=== PATIENT | male | born 1965 | race Caucasian/White ===

== ENCOUNTER → 2019-07-31 15:10 | Outpatient (CLI) | payer OTHER, SELFPAY ==
--- NOTE | ~2019-07-31 | XR_ITS ---
XR ankle RT min 3V DATE: 07/31/2019 15:36 INDICATION: Right ankle and foot pain TECHNIQUE: 4 views COMPARISON: None FINDINGS: There is osteoarthritis at the tibiotalar joint including periarticular spurring. No fractu re or dislocation of the ankle or disruption of the ankle mortise is detected. No periosteal reaction or bone destruction. Prominent plantar calcaneal enthesopathy. There is some distal Achilles tendon calcification. IMPRESSION: Tibiotalar osteoarthritis Calcaneal enthesopathy Reviewed, dictated and finalized at location B. BABY
== END ==
PROVIDERS: PCP Internal Medicine; Visit Provider Internal Medicine
DX: M19.071 Primary osteoarthritis, right ankle and foot (principal)
CPT/HCPCS: 73610

== ENCOUNTER 2019-12-26 15:29 | Outpatient (CLI) | payer OTHER, SELFPAY ==
--- NOTE | ~2019-12-26 | XR_ITS ---
EXAMINATION: [id number] INDICATION: Left-sided chest pain TECHNIQUE: A frontal view of the chest and 3 views of the left ribs were obtained. COMPARISON: 05/01/2015, 05/24/2017 FINDINGS: The lungs are free of acute opacities. There is no pleural effusion or pneumothorax. The ca rdiomediastinal silhouette is normal. There is mild cortical irregularity at the anterior aspects of the left sixth and seventh ribs which could reflect nondisplaced fractures. Moderate osteoarthritis i s noted in the acromioclavicular and glenohumeral joints. IMPRESSION: 1. Possible nondisplaced fractures of the left sixth and seventh ribs. 2. No acute cardiopulmonary abnormality. Reviewed, dictated and finalized at location A.
--- NOTE | ~2019-12-26 | XR_ITS ---
EXAMINATION: XR shoulder LT min 2V INDICATION: Left shoulder pain TECHNIQUE: Four views of the left shoulder are obtained. COMPARISON: 07/20/2018, 05/01/2015 FINDINGS: There is no shoulder fracture. Bone alignment is normal. There is moderate osteoarthritis o f the acromioclavicular and glenohumeral joints without significant change. IMPRESSION: 1. Left shoulder osteoarthritis without acute findings or significant interval change. Reviewed, dictated and finalized at location A.
== END 2019-12-26 15:30 | disposition home or self-care (01) ==
LOC: ANHIMG 15:38
PROVIDERS: PCP Internal Medicine; Visit Provider Physician Assistant
DX: R07.9 Chest pain, unspecified (principal); M25.512 Pain in left shoulder; M19.012 Primary osteoarthritis, left shoulder
CPT/HCPCS: 71101; 73030

== ENCOUNTER → 2020-04-28 07:59 | Outpatient (CLI) | payer OTHER, SELFPAY ==
--- NOTE | ~2020-04-28 | XR_ITS ---
EXAMINATION: XR hand BI arthritis min 3V EXAM DATE: 04/28/2020 08:27 INDICATION: Osteoarthritis. Osteoarthritis, bilateral hand pain. History of carpal tunnel surgery bi laterally 1994. TECHNIQUE: Right hand frontal, lateral and oblique projections obtained and reviewed. Left hand fron dominic, lateral and oblique projections obtained and reviewed. Catchers projection of both hands. There is no prior study for comparison. FINDINGS: There is large spur projecting off the right 4th distal phalangeal dorsal plate, wrapping around the middle phalangeal head and causing some chronic pressure erosion at the middle phalangeal neck. No other erosive change identified. There is mild to moderate left 3rd distal interphalangeal j oint osteoarthritis, could be posttraumatic etiology. Mild to moderate bilateral 1st interphalangeal joint osteoarthritis. Less osteoarthritis at other joints. There are no acute fractures or dislocations identified. There is no subcutaneous gas. The soft tis kelvin is unremarkable. There are no radiopaque foreign bodies. IMPRESSION: Polyarticular osteoarthritis. No acute findings. Reviewed, dictated and finalized at location B. UCTION BOW MAKER
== END ==
PROVIDERS: PCP Internal Medicine; Visit Provider Plastic Surgery
DX: M19.041 Primary osteoarthritis, right hand (principal); M19.042 Primary osteoarthritis, left hand
CPT/HCPCS: 73130

== ENCOUNTER 2020-07-04 14:21 | Emergency (ER) | payer OTHER, SELFPAY ==
--- NOTE | ~2020-07-04 | XR_ITS ---
EXAMINATION: XR chest 2V EXAM DATE: 07/04/2020 17:02 INDICATION: Shortness of breath and high blood pressure. Headache, symptoms 5 days. TECHNIQUE: Frontal and lateral projections of the chest obtained and reviewed. Comparison is made to prior examination from 01/02/2019. FINDINGS: The lungs are clear. There are no pleural effusions. The cardiomediastinal silhouette is within normal limits. There is no pneumothorax suspected. There is several small sclerotic region s uspected overlying the right scapula, new compared to previous exam IMPRESSION: Possible development of osteoblastic disease. Consider correlating with PSA, bone scan. Reviewed, dictated and finalized at location A. KLE STRAP SEWER
[2020-07-04 14:25] VITALS: BP 181/69; PULSE 79; RESP 20; TEMP 35.8; O2SAT 100
--- NOTE | 2020-07-04 16:24 | ECG_ITS ---
Measurements Intervals [place] Rate: 65 P: 43 WV: 213 QRS: -10 QRSD: 126 T: 9 QT: 403 QTc: 419 Interpretive Statements SINUS RHYTHM WITH FIRST DEGREE AV BLOCK INCOMPLETE RIGHT BUNDLE BRANCH BLOCK BASELINE WANDER- V1 ABNORMAL ECG Electronically Signed On 07-04-2020 18:50:29 BOARD FINISHER by Garrett Lee D.O.
[2020-07-04 16:43] VITALS: BP 194/88; PULSE 64; RESP 18; O2SAT 97
[2020-07-04 16:55] LABS: Basophils Absolute Auto 0.1 K/mm3 (0.0-0.1); Eosinophils Absolute Auto 0.1 K/mm3 (0-0.3); Eosinophils Percent Auto 1.8 % (0-4.4); Hematocrit 38.7 % (42.0-52.0); Hemoglobin 13.6 g/dL (14.0-18.0); Immature Granulocyte Absolute 0.01 K/mm3 (0.00-0.031); Immature Granulocyte Percent A 0.2 % (0-0.5); Lymphocytes Absolute Auto 1.47 K/mm3 (0.9-3.2); Lymphocytes Percent Auto 24.1 % (18.3-44.2); Mean Corpuscular HGB Conc 35.1 g/dl (32-36); Mean Corpuscular Hemoglobin 31.1 pg (26-34); Mean Corpuscular Volume 88.4 fl (80-100); Mean Platelet Volume 8.9 fl (7.4-10.4); Monocytes Absolute Auto 0.6 K/mm3 (0.1-0.6); Monocytes Percent Auto 9.2 % (2.6-8.5); Neutrophils Absolute Auto 3.9 K/mm3 (1.3-6.7); Neutrophils Percent Auto 63.7 % (45.5-73.1); Platelet Count Result 207 k/mm3 (150-375); Red Blood Count 4.38 M/mm3 (4.6-6.20); Red Cell Distribution Width 12.4 % (11.5-14.5); White Blood Count 6.1 K/mm3 (4.5-10.0)
[2020-07-04 17:07] LABS: Anion Gap 7 mmol/L (8-16); Blood Urea Nitrogen 15 mg/dL (9-20); Calcium 9.5 mg/dL (8.4-10.2); Carbon Dioxide 28 mmol/L (22-30); Chloride 103 mmol/L (98-107); Estimated CRCL calculation 123 ml/min; Estimated Glomerular Filt Rate > 60; Glucose 143 mg/dL (75-110); Sodium 138 mmol/L (137-145)
[2020-07-04] MEDS: hydrALAZINE HCL 20 MG/ML VIAL 10 MG IV PUSH (17:14)
[2020-07-04 17:40] LABS: INR 0.9; Prothrombin Time 12.9 Seconds (11.1-14.7)
[2020-07-04 17:41] LABS: Partial Thromboplastin Time 26.1 SECONDS (22.3-36.8)
[2020-07-04 17:52] VITALS: BP 177/81; PULSE 65; RESP 18; O2SAT 97
--- NOTE | 2020-07-04 18:02 | ED.RECABL ---
HPI - Recheck/Abnormal Lab/Rx General Chief Complaint: Recheck/Abnormal Lab/Rx Stated Complaint: high blood pressure , sob Time Seen by Provider: 07/04/20 16:24 Source: patient Mode of arrival: ambulatory Limitations: no limitations History of Present Illness HPI narrative: Patient presents to the emergency department for hypertension. Reports his blood pressure has been running in the 190s systolic. He takes valsartan 40 mg daily. Reports shortness of breath over the last week. Also reports intermittent headaches over the last 5 days. Reports a cough that is chronic for him. Denies fever or lower extremity edema. Related Data Home Medications Medication Instructions Recorded Confirmed acyclovir 200 mg capsule 200 mg PO QID 05/21/19 05/30/20 atorvastatin 20 mg tablet 20 mg PO DAILY 05/21/19 05/30/20 glimepiride 2 mg tablet 1 mg PO QAM 05/21/19 05/30/20 insulin glargine 100 unit/mL 100 unit SUB-Q DAILY 05/21/19 05/30/20 subcutaneous solution insulin lispro 100 unit/mL 1 sliding scale dose SUB-Q 05/21/19 05/30/20 subcutaneous solution USEASDIRECTD metformin 1,000 mg tablet 1,000 mg PO BID 05/21/19 05/30/20 phentermine 15 mg capsule 15 mg PO DAILY 05/22/19 05/30/20 albuterol sulfate 90 mcg/actuation 1 puff INHALATION Q4H PRN 07/24/19 05/30/20 aerosol inhaler gabapentin 300 mg capsule 300 mg PO DAILY 02/14/20 05/30/20 meloxicam 15 mg tablet 15 mg PO DAILY 02/14/20 05/30/20 Allergies Allergy/AdvReac Type Severity Reaction Status Date / Time Penicillins Allergy Mild Rash Verified 07/04/20 14:29 Review of Systems Review of Systems: Narrative: CONSTITUTIONAL: Denies fever CARDIOVASCULAR: Denies chest pain RESPIRATORY: Reports cough and dyspnea. All systems reviewed & are unremarkable except as noted in HPI and below PMFSH Past Medical History Medical History (Updated 07/04/20 @ 20:53 by Lani Higgins PA-C) Bilateral shoulder pain DJD of shoulder Left hip pain Left shoulder pain Other fatigue Right shoulder pain Trochanteric bursitis of left hip Type 2 diabetes mellitus without complications Surgical History Surgical History H/O total hip arthroplasty History of repair of right rotator cuff Family History Family History Father Family history of lung cancer Patient's father is Mother Cerebrovascular accident Patient's mother is Other Diabetes mellitus Family history of arthritis Social History Social History Smoking status: Never smoker Second hand tobacco smoke exposure: No Alcohol intake: current Gender identity (if verbalized by the patient): Male Exam Narrative: Exam Narrative: GENERAL: Well-appearing, obese, and in no acute distress. HEAD: Normocephalic, atraumatic. EYES: EOMI. ENT: Mucous membranes moist. Oropharynx without tonsillar hypertrophy exudate or other lesions. NECK: Supple. No adenopathy or masses. CHEST: Clear to auscultation. No respiratory distress. No wheezes rales or rhonchi HEART: Regular rate and rhythm. No murmur heard. Normal peripheral pulses. EXTREMITIES: Normal range of motion. No edema. SKIN: Warm, dry, no rash. NEURO: No focal deficits. Alert and oriented x3. PSYCH: Normal mood and affect Course Consultations Consultation #1: Spoke with patient's on-call primary. Patient's dose of valsartan will be increased. He is to monitor his blood pressure at home and follow-up in clinic Date: 07/04/20 Time: 20:21 Vital Signs Vital signs: Vital Signs Temperature 96.5 F L 07/04/20 14:25 Pulse Rate 79 07/04/20 14:25 Respiratory Rate 20 07/04/20 14:25 Blood Pressure 181/69 H 07/04/20 14:25 Pulse Oximetry 100 07/04/20 14:25 Temperature 96.5 F L 07/04/20 14:25 Pulse Rate 70 07/04/20 19:59 Respiratory Rate 18 07/04/20 17:52 Blood Press
[2020-07-04 19:03] LABS: NT Pro B Type Natriuretic Pept 39 PG/ML (5-100); Troponin I < 0.012 ng/mL (0.000-0.034)
[2020-07-04 19:09] VITALS: BP 180/97; PULSE 75
[2020-07-04] MEDS: LABETALOL HCL INJ 100 MG/20 ML VIAL 20 MG IV PUSH (19:21)
[2020-07-04 19:59] VITALS: BP 154/95; PULSE 70
[2020-07-04 21:08] VITALS: BP 157/83; PULSE 72; RESP 18; TEMP 36.6; O2SAT 98
== END 2020-07-04 21:10 | disposition home or self-care (01) ==
PROVIDERS: Physician Assistant; Emergency Provider Emergency Medicine; PCP Internal Medicine
DX: I10 Essential (primary) hypertension (principal); E11.9 Type 2 diabetes mellitus without complications; Z79.4 Long term (current) use of insulin; I44.0 Atrioventricular block, first degree; I45.10 Unspecified right bundle-branch block
CPT/HCPCS: 36415; 71046; 80048; 83880; 84484; 85025; 85610; 85730; 93005; 96374; 96375; 99284; J0360

== ENCOUNTER 2020-07-07 06:46 | Emergency (ER) | payer OTHER, SELFPAY ==
[2020-07-07] VITALS (37 sets, daily range): BP systolic 138–204; BP diastolic 78–128; PULSE 58–75; RESP 13–25; TEMP 36.3; O2SAT 95–100
--- NOTE | ~2020-07-07 | XR_ITS ---
EXAMINATION: XR chest 1V portable EXAM DATE: 07/07/2020 08:28 INDICATION: Chest pain. Shortness of breath. History high blood pressure and diabetes. TECHNIQUE: Portable AP frontal chest x-ray was obtained. Comparison is made to prior examination from 07/04/2020. FINDINGS: The lungs are clear. There are no pleural effusions. Cardiomediastinal silhouette is norm al. There is no pneumothorax suspected. The bones and soft tissues are unremarkable. IMPRESSION: No acute cardiopulmonary findings. Reviewed, dictated and finalized at location B. CULAR MODELER
--- NOTE | 2020-07-07 07:34 | ECG_ITS ---
Measurements Intervals [place] Rate: 64 P: 9 NC: 225 QRS: -7 QRSD: 107 T: 12 QT: 401 QTc: 415 Interpretive Statements SINUS RHYTHM WITH FIRST DEGREE AV BLOCK INCOMPLETE RIGHT BUNDLE BRANCH BLOCK BASELINE ARTIFACT- I, III, V2 ABNORMAL ECG Electronically Signed On 07-07-2020 7:59:14 PRESCHOOL AIDE by Garrett Lee D.O.
[2020-07-07] MEDS: hydroCHLOROthiazide 25 MG TABLET PO (07:44)
--- NOTE | 2020-07-07 07:58 | ED.GENADULT ---
HPI - General Adult General Chief complaint: Recheck/Abnormal Lab/Rx Stated complaint: HIGH BP Time Seen by Provider: 07/07/20 07:06 Source: patient History of Present Illness HPI narrative: Patient is a 55 y/o male complaining of hypertension. He states that he took his BP this morning at home and it was 220/107. He took Valsartan 80 mg (his usual BP medication) prior to coming to ED. The medication helped lower his BP. He also has some mild chest pressure and SOB. He had some left temporal headache last night, but his headache is mostly gone now. Of note, he was seen here 3 days ago for similar complaints. His Valsartan was increased from 40 mg daily to 80 mg daily. Related Data Home Medications Medication Instructions Recorded Confirmed acyclovir 200 mg capsule 200 mg PO QID 05/21/19 05/30/20 atorvastatin 20 mg tablet 20 mg PO DAILY 05/21/19 05/30/20 glimepiride 2 mg tablet 1 mg PO QAM 05/21/19 05/30/20 insulin glargine 100 unit/mL 100 unit SUB-Q DAILY 05/21/19 05/30/20 subcutaneous solution insulin lispro 100 unit/mL 1 sliding scale dose SUB-Q 05/21/19 05/30/20 subcutaneous solution USEASDIRECTD metformin 1,000 mg tablet 1,000 mg PO BID 05/21/19 05/30/20 phentermine 15 mg capsule 15 mg PO DAILY 05/22/19 05/30/20 albuterol sulfate 90 mcg/actuation 1 puff INHALATION Q4H PRN 07/24/19 05/30/20 aerosol inhaler gabapentin 300 mg capsule 300 mg PO DAILY 02/14/20 05/30/20 meloxicam 15 mg tablet 15 mg PO DAILY 02/14/20 05/30/20 Allergies Allergy/AdvReac Type Severity Reaction Status Date / Time Penicillins Allergy Mild Rash Verified 07/04/20 14:29 Review of Systems Constitutional: Constitutional: Denies chills, Denies fever(s), Reports headache(s) and Denies weakness Eyes: Eyes: Denies blurry vision ENT: Reports headache(s) and Denies neck pain Cardiovascular: Cardiovascular: Reports chest pain and Denies dyspnea Respiratory: Respiratory: Denies cough and Reports dyspnea Gastrointestinal: Gastrointestinal: Denies abdominal pain, Denies diarrhea, Denies nausea and Denies vomiting Genitourinary: Genitourinary: Denies hematuria and Denies dysuria Musculoskeletal: Musculoskeletal: Denies back pain and Denies neck pain Neurologic: Reports headache(s) and Denies weakness PMFSH Past Medical History Medical History Bilateral shoulder pain DJD of shoulder Left hip pain Left shoulder pain Other fatigue Right shoulder pain Trochanteric bursitis of left hip Type 2 diabetes mellitus without complications Surgical History Surgical History H/O total hip arthroplasty History of repair of right rotator cuff Family History Family History Father Family history of lung cancer Patient's father is Mother Cerebrovascular accident Patient's mother is Other Diabetes mellitus Family history of arthritis Social History Social History Smoking status: Never smoker Second hand tobacco smoke exposure: No Alcohol intake: current Gender identity (if verbalized by the patient): Male Exam Const: General: no acute distress and well developed Orientation/consciousness: oriented to person, oriented to place, oriented to time and patient oriented x3 HENMT: Head: normocephalic Ears: external ears normal General nose exam: Normal external nose present Eyes: General: appearance normal, both eyes and all related structures Conjunctivae: conjunctivae normal Neck: Neck: normal visual inspection and full ROM Chest: Chest palpation & inspection: normal inspection of the chest and no tenderness Resp: Effort & Inspection: normal respiratory effort Auscultation: clear to auscultation bilaterally Cardio: Rate: regular rate Rhythm: regular rhythm GI: GI Palp: No abdominal tenderness and Y
[2020-07-07 08:14] LABS: CRP < 0.5 mg/dL (<1.0)
[2020-07-07 08:16] LABS: Alanine Aminotransferase 24 U/L (4-50); Albumin Level 3.8 g/dL (3.5-5.1); Alkaline Phosphatase 71 U/L (38-126); Anion Gap 3 mmol/L (8-16); Aspartate Amino Transferase 21 U/L (17-59); Bilirubin,Total 0.7 mg/dL (0.2-1.3); Blood Urea Nitrogen 13 mg/dL (9-20); Carbon Dioxide 28 mmol/L (22-30); Chloride 105 mmol/L (98-107); Estimated CRCL calculation 139 ml/min; Estimated Glomerular Filt Rate > 60; Glucose 185 mg/dL (75-110); Sodium 136 mmol/L (137-145)
[2020-07-07 08:27] LABS: Erythrocyte Sedimentation Rate 18 mm/hr (0-20)
[2020-07-07 08:32] LABS: Basophils Percent Auto 0.7 % (0.2-1.2); Eosinophils Absolute Auto 0.1 K/mm3 (0-0.3); Eosinophils Percent Auto 1.3 % (0-4.4); Hematocrit 40.8 % (42.0-52.0); Hemoglobin 14.3 g/dL (14.0-18.0); Immature Granulocyte Absolute 0.01 K/mm3 (0.00-0.031); Immature Granulocyte Percent A 0.2 % (0-0.5); Lymphocytes Absolute Auto 1.17 K/mm3 (0.9-3.2); Lymphocytes Percent Auto 21.9 % (18.3-44.2); Mean Corpuscular Hemoglobin 31.5 pg (26-34); Mean Corpuscular Volume 89.9 fl (80-100); Mean Platelet Volume 9.6 fl (7.4-10.4); Monocytes Absolute Auto 0.5 K/mm3 (0.1-0.6); Neutrophils Absolute Auto 3.6 K/mm3 (1.3-6.7); Neutrophils Percent Auto 66.9 % (45.5-73.1); Platelet Count Result 213 k/mm3 (150-375); Red Blood Count 4.54 M/mm3 (4.6-6.20); Red Cell Distribution Width 12.6 % (11.5-14.5); Troponin I < 0.012 ng/mL (0.000-0.034); White Blood Count 5.4 K/mm3 (4.5-10.0)
[2020-07-07] MEDS: VALSARTAN 80 MG TABLET PO (09:22)
[2020-07-07 10:58] LABS: Troponin I < 0.012 ng/mL (0.000-0.034)
[2020-07-07] MEDS: amLODIPine BESYLATE 5 MG TABLET 10 MG PO (12:14)
== END 2020-07-07 13:49 | disposition home or self-care (01) ==
PROVIDERS: Emergency Provider Emergency Medicine; PCP Internal Medicine
DX: I10 Essential (primary) hypertension (principal); R51.9 Headache, unspecified; R07.89 Other chest pain; E11.9 Type 2 diabetes mellitus without complications; Z79.4 Long term (current) use of insulin; I44.0 Atrioventricular block, first degree; I45.10 Unspecified right bundle-branch block
CPT/HCPCS: 36415; 71045; 80053; 84484; 85025; 85652; 86140; 93005; 99284; A9270

== ENCOUNTER 2020-07-09 09:56 | Outpatient (CLI) | payer OTHER, SELFPAY ==
--- NOTE | ~2020-07-09 | NM_ITS ---
EXAMINATION: NM bone scan whole body DATE: 07/09/2020 13:40 INDICATION: Diffuse sclerosis of bones. TECHNIQUE: 21.8 mCi Tc-99m HDP was administered intravenously. Delayed whole-body scintigrams were o btained. COMPARISON: Chest CT 01/10/2019, chest 2 views 07/04/2020 FINDINGS: There is increased activity at the acromioclavicular joints correlating with osteoarthritis on radiographs. There is increased activity in the knees without radiographic comparison, likely ost eoarthritis. There are foci of joint-centered increased activity in the spine correlating with spondy losis on radiographs. There is normal activity in the kidneys. IMPRESSION: 1. No evidence of malignancy or metabolic bone disease. Reviewed, dictated and finalized at location A. EN FOODS MANAGER
== END 2020-07-09 09:57 | disposition home or self-care (01) ==
PROVIDERS: PCP Internal Medicine; Visit Provider Physician Assistant
DX: R93.89 Abnormal findings on diagnostic imaging of other specified body structures (principal)
CPT/HCPCS: 78306; A9561

== ENCOUNTER 2020-07-16 12:57 | Outpatient (CLI) | payer OTHER, SELFPAY ==
--- NOTE | 2020-07-16 15:00 | NEURO_ITS ---
Impression: # Complains of hand numbness. Patient is diabetic for over 10 years. # Bilateral Carpal Tunnel Syndrome, left more than right,superimposed on underlying sensory neuropathy.. 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 # Normal needle/EMG exam. Nerve Conduction Studies Anti Sensory Summary Table Stim Site NR Peak (ms) P-T Amp (?V) Site1 Site2 Delta-P (ms) Dist (cm) Yash (m/s) Left Median Anti Sensory (2-3nd Digit) Wrist 4.4 25.4 Wrist 2-3nd Digit 4.4 14.0 32 Wrist 4.8 38.8 Wrist 2-3nd Digit 4.4 14.0 32 Right Median Anti Sensory (2-3nd Digit) Wrist 3.8 34.6 Wrist 2-3nd Digit 3.8 14.0 37 Wrist 3.8 40.9 Wrist 2-3nd Digit 3.8 14.0 37 Left Radial Anti Sensory (Base 1st Digit) Wrist 2.0 23.5 Wrist Base 1st Digit 2.0 0.0 Right Radial Anti Sensory (Base 1st Digit) Wrist 2.6 19.7 Wrist Base 1st Digit 2.6 0.0 Left Ulnar Anti Sensory (5th Digit) Wrist 3.1 11.1 Wrist 5th Digit 3.1 14.0 45 Right Ulnar Anti Sensory (5th Digit) Wrist 2.8 22.3 Wrist 5th Digit 2.8 14.0 50 Motor Summary Table Stim Site NR Onset (ms) O-P Amp (mV) Site1 Site2 Delta-0 (ms) Dist (cm) Yash (m/s) Left Median Motor (Abd Poll Brev) Wrist 5.2 1.6 Elbow Wrist 5.0 28.0 56 Elbow 10.2 1.4 Right Median Motor (Abd Poll Brev) Wrist 3.8 2.8 Elbow Wrist 5.1 27.0 53 Elbow 8.9 1.4 Left Ulnar Motor (Abd Dig Minimi) Wrist 3.0 7.2 A Elbow Wrist 5.8 29.0 50 A Elbow 8.8 6.1 B Elbow Wrist 4.4 24.0 55 B Elbow 7.4 4.8 Right Ulnar Motor (Abd Dig Minimi) Wrist 3.0 6.8 A Elbow Wrist 5.3 31.0 58 A Elbow 8.3 6.9 F Wave Studies NR F-Lat (ms) L-R F-Lat (ms) Left Median (Mrkrs) (Abd Poll Brev) 29.24 0.82 Right Median (Mrkrs) (Abd Poll Brev) 30.06 0.82 Left Ulnar (Mrkrs) (Abd Dig Min) 30.92 0.57 Right Ulnar (Mrkrs) (Abd Dig Min) 30.36 0.57 EMG Side Muscle Nerve Root Ins Act Fibs Amp Dur Recrt Comment Right 1stDorInt Ulnar C8-T1 Nml Nml Nml Nml Nml Right Ext Indicis Radial (Post Int) C7-8 Nml Nml Nml Nml Nml Right Ext Digitorum Radial (Post Int) C7-8 Nml Nml Nml Nml Nml Right BrachioRad Radial C5-6 Nml Nml Nml Nml Nml Right PronatorTeres Median C6-7 Nml Nml Nml Nml Nml Right Abd Poll Brev Median C8-T1 Nml Nml Nml Nml Nml Left 1stDorInt Ulnar C8-T1 Nml Nml Nml Nml Nml Left Ext Indicis Radial (Post Int) C7-8 Nml Nml Nml Nml Nml Left Ext Digitorum Radial (Post Int) C7-8 Nml Nml Nml Nml Nml Left BrachioRad Radial C5-6 Nml Nml Nml Nml Nml Left PronatorTeres Median C6-7 Nml Nml Nml Nml Nml Left Abd Poll Brev Median C8-T1 Nml Nml Nml Nml Nml MTDD
== END 2020-07-16 12:58 | disposition home or self-care (01) ==
PROVIDERS: Family Provider Internal Medicine; PCP Internal Medicine; Visit Provider Plastic Surgery
DX: R20.0 Anesthesia of skin (principal); R53.1 Weakness; G56.03 Carpal tunnel syndrome, bilateral upper limbs
CPT/HCPCS: 95886; 95911

== ENCOUNTER 2020-07-29 13:28 | Outpatient (CLI) | payer OTHER, SELFPAY ==
--- NOTE | ~2020-07-29 | US_ITS ---
EXAMINATION: US renal BI EXAM DATE: 07/29/2020 14:08 INDICATION: R79.89 - Other specified abnormal findings of blood chemistry. TECHNIQUE: Multiple grayscale and Doppler images of the kidneys were obtained (by a technologist who performed the scan) and subsequently reviewed. Comparison is made to prior examination from 09/19/2018 . FINDINGS: Right kidney: There is normal contour and echogenicity. It measures 11.3 x 6.2 x 6.7 centimeters. T here are no focal renal lesions identified. There is no hydronephrosis. Left kidney: There is normal contour and echogenicity. It measures 3.2 x 6.3 x 5.6 centimeters. The re are no focal renal lesions identified. There is no hydronephrosis. Bladder unremarkable. IMPRESSION: 1. Sonographically unremarkable kidneys. Reviewed, dictated and finalized at location B. ENGER CAR CLEANING SUPERVISOR
== END 2020-07-29 13:29 | disposition home or self-care (01) ==
PROVIDERS: PCP Internal Medicine; Visit Provider Physician Assistant
DX: R79.89 Other specified abnormal findings of blood chemistry (principal)
CPT/HCPCS: 76775

== ENCOUNTER 2021-05-20 15:33 | Emergency (ER) | payer OTHER, SELFPAY ==
--- NOTE | ~2021-05-20 | CT_ITS ---
EXAMINATION: CT BRAIN W/O DATE: 05/20/2021 17:17 INDICATION: Headache. TECHNIQUE: Computed tomography (CT) of the head was performed without intravenous contrast. The dose- length product was 681.00 mGy-cm. Automated exposure control and iterative reconstruction technique w ere employed. COMPARISON: No prior studies for comparison. FINDINGS: Normal brain parenchymal volume for age. Normal rand-white differentiation. No acute intrac ranial hemorrhage, infarction, mass or mass effect. No ventriculomegaly or midline shift. Midline sagittal images demonstrate a normal corpus callosum, c raniovertebral junction and sella turcica. Basilar cisterns are patent. Paranasal sinuses and mastoids are pneumatized. No depressed skull fractures. IMPRESSION: 1. No acute intracranial abnormality. Reviewed, dictated and finalized at location A. REPORT DEVELOPER
[2021-05-20 15:51] VITALS: BP 169/79; PULSE 72; RESP 20; TEMP 36.4; O2SAT 100
[2021-05-20 17:05] VITALS: BP 164/98; PULSE 76; RESP 18; TEMP 37.3; O2SAT 97
[2021-05-20 17:12] VITALS: BP 164/98; PULSE 76; RESP 18; O2SAT 97
--- NOTE | 2021-05-20 17:19 | ED.GENADULT ---
HPI - General Adult General Chief complaint: Recheck/Abnormal Lab/Rx Stated complaint: high blood pressure Time Seen by Provider: 05/20/21 16:55 Source: RN notes reviewed History of Present Illness HPI narrative: Patient presents to emergency department from home for hypertension. Patient states that he has a history of hypertension is on valsartan daily which he takes in the morning he states that he had taken his normal medication this morning and checked his blood pressure and his blood pressure been elevated he states that with this he has a mild headache he states that secondary his blood pressure being elevated at home with readings in the 200s systolically he took a second valsartan at approximately 11:00 he denies any fevers or chills chest pain shortness of breath abdominal pain or nausea vomiting he did just recently have a left shoulder replacement approximately 1 week ago and states that he has been taking Tylenol for his pain but no other pain medication with last dose of Tylenol at noon. Related Data Home Medications Medication Instructions Recorded Confirmed atorvastatin 20 mg tablet 20 mg PO DAILY 05/21/19 07/09/20 glimepiride 2 mg tablet 1 mg PO QAM 05/21/19 07/09/20 insulin glargine 100 unit/mL 100 unit SUB-Q DAILY 05/21/19 07/09/20 subcutaneous solution insulin lispro 100 unit/mL 1 sliding scale dose SUB-Q 05/21/19 07/09/20 subcutaneous solution USEASDIRECTD metformin 1,000 mg tablet 1,000 mg PO BID 05/21/19 07/09/20 albuterol sulfate 90 mcg/actuation 1 puff INHALATION Q4H PRN 07/24/19 05/30/20 aerosol inhaler gabapentin 300 mg capsule 300 mg PO DAILY 02/14/20 05/30/20 meloxicam 15 mg tablet 15 mg PO DAILY 02/14/20 07/09/20 Allergies Allergy/AdvReac Type Severity Reaction Status Date / Time Penicillins Allergy Mild Rash Verified 07/07/20 14:12 Review of Systems Review of Systems: Gen.: Denies fevers or chills Eyes: Denies eye pain or visual change ENT: Denies congestion Respiratory: Denies shortness of breath or cough CV: Denies chest pain or palpitations GI: Denies abdominal pain nausea, emesis or diarrhea Musculoskeletal: Denies back pain or muscle pain Neuro: Denies numbness, tingling, weakness or focal weakness Skin: Denies rash Except as documented, all other systems reviewed and negative [facility] Past Medical History Medical History Bilateral shoulder pain DJD of shoulder Left hip pain Left shoulder pain Other fatigue Right shoulder pain Trochanteric bursitis of left hip Type 2 diabetes mellitus without complications Surgical History Surgical History H/O total hip arthroplasty History of repair of right rotator cuff Family History Family History Father Family history of lung cancer Patient's father is Mother Cerebrovascular accident Patient's mother is Other Diabetes mellitus Family history of arthritis Social History Social History Smoking status: Never smoker Second hand tobacco smoke exposure: No Alcohol intake: current Gender identity (if verbalized by the patient): Male Exam Narrative: APPEARANCE: No acute distress, nontoxic, resting in bed EYES: EOMI HEENT: Normocephalic, atraumatic, OMM RESPIRATORY: No respiratory distress Clear to auscultation bilaterally with no rhonchi wheezing or rales. CARDIOVASCULAR: Regular rate and rhythm without murmurs rubs or gallops. ABDOMINAL: Soft, nontender, nondistended, no rebound or guarding MUSCULOSKELETAl: Moves all extremities. No clubbing, cyanosis or edema. Left shoulder in sling NEURO: Awake and alert. Following commands, speech normal, no focal deficits SKIN:: Warm, dry. No rashes lesions or abrasions PSYCHIATRIC: Normal affect/mood, Course Course Emergency Course: Nu
[2021-05-20 17:28] LABS: Basophils Percent Auto 0.7 % (0.2-1.2); Eosinophils Absolute Auto 0.1 K/mm3 (0-0.3); Eosinophils Percent Auto 1.7 % (0-4.4); Hematocrit 33.3 % (42.0-52.0); Hemoglobin 11.5 g/dL (14.0-18.0); Immature Granulocyte Absolute 0.03 K/mm3 (0.00-0.031); Immature Granulocyte Percent A 0.5 % (0-0.5); Lymphocytes Absolute Auto 0.88 K/mm3 (0.9-3.2); Lymphocytes Percent Auto 15.2 % (18.3-44.2); Mean Corpuscular HGB Conc 34.5 g/dl (32-36); Mean Corpuscular Hemoglobin 29.7 pg (26-34); Mean Platelet Volume 8.8 fl (7.4-10.4); Monocytes Absolute Auto 0.4 K/mm3 (0.1-0.6); Monocytes Percent Auto 6.6 % (2.6-8.5); Neutrophils Absolute Auto 4.4 K/mm3 (1.3-6.7); Neutrophils Percent Auto 75.3 % (45.5-73.1); Platelet Count Result 232 k/mm3 (150-375); Red Blood Count 3.87 M/mm3 (4.6-6.20); Red Cell Distribution Width 12.4 % (11.5-14.5); White Blood Count 5.8 K/mm3 (4.5-10.0)
[2021-05-20 17:40] LABS: Alanine Aminotransferase 30 U/L (4-50); Albumin Level 3.9 g/dL (3.5-5.1); Alkaline Phosphatase 87 U/L (38-126); Anion Gap 5 mmol/L (8-16); Aspartate Amino Transferase 26 U/L (17-59); Bilirubin,Total 0.3 mg/dL (0.2-1.3); Blood Urea Nitrogen 13 mg/dL (9-20); Calcium 9.5 mg/dL (8.4-10.2); Carbon Dioxide 31 mmol/L (22-30); Chloride 97 mmol/L (98-107); Estimated CRCL calculation 125 ml/min; Estimated Glomerular Filt Rate > 60; Glucose 291 mg/dL (65-110); Potassium 4.1 mmol/L (3.4-5.0); Sodium 133 mmol/L (137-145)
[2021-05-20 17:53] VITALS: BP 167/96; PULSE 74; RESP 18; O2SAT 100
--- NOTE | 2021-05-20 17:56 | PC.NURSE ---
Pt states that the doctor didn't explain that he would be signing an AMA form if he wanted to leave today, MD Childs aware, went to further educate pt on his decision, pt still would like to be discharged but refused to sign AMA form
[2021-05-20 18:12] LABS: Add Urine Microscopic? YES; Appearance Urine Clear (Clear); Bilirubin Urine Negative (Negative); Blood Urine Negative (Negative); Color Urine Straw (Yellow); Glucose Urine UA 3+ mg/dL (Negative); Ketones Urine Negative (Negative); Leukocyte Esterase Ur Negative LEU/UL (Negative); Nitrate Urine Negative (Negative); Protein Urine Negative (Negative); RBC Urine 0-2 /hpf (0-2); Urobilinogen Urine Negative mg/dL (<2.0); WBC Urine 0-3 /hpf
[2021-05-20 18:42] VITALS: BP 168/94; PULSE 75; O2SAT 98
== END 2021-05-20 18:43 | disposition home or self-care (01) ==
PROVIDERS: Emergency Provider Emergency Medicine; PCP Internal Medicine
DX: I10 Essential (primary) hypertension (principal); E11.9 Type 2 diabetes mellitus without complications; Z79.84 Long term (current) use of oral hypoglycemic drugs; Z79.4 Long term (current) use of insulin; Z96.643 Presence of artificial hip joint, bilateral
CPT/HCPCS: 36415; 70450; 80053; 81001; 85025; 99284

== ENCOUNTER 2022-01-19 00:14 | Day surgery (SDC) | payer OTHER, SELFPAY ==
[2022-01-04 14:11] VITALS: BMI 44.2
[2022-01-19 09:42] VITALS: BP 128/79; PULSE 75; RESP 20; TEMP 36.6; O2SAT 98
[2022-01-19] MEDS: LACTATED RINGERS 1,000 ML 150 ML IV CONT (09:56)
[2022-01-19 09:57] LABS: Glucose Point of Care 149 mg/dl (65-105)
--- NOTE | 2022-01-19 10:03 | WPDANESEPPF ---
Anes - Initial Pre Proc Eval Procedure: Operation Date: 01/19/22 10:30 Proposed Procedures p Screening Colonoscopy - Helio Flynn MD Date/Time: 01/19/22 10:03 Surgeon: Helio Flynn MD Pre Op Diagnosis: neoplasm screening Patient Data Age: 56 Gender: M Height: 1.75 m Weight: 137.8 kg Last Vital Signs Temp 36.6 C 01/19/22 09:42 Pulse 75 01/19/22 09:42 Resp 20 01/19/22 09:42 BP 128/79 01/19/22 09:42 Pulse Ox 98 01/19/22 09:42 O2 Del Method Room Air 01/19/22 09:42 Allergies Allergy/AdvReac Type Severity Reaction Status Date / Time Penicillins Allergy Mild Rash Verified 01/19/22 09:41 Home Medications Medication Instructions Recorded Confirmed Type atorvastatin 20 mg tablet 20 mg PO DAILY 05/21/19 01/19/22 History insulin glargine 100 unit/mL 100 unit subcut DAILY 05/21/19 01/19/22 History subcutaneous solution (Lantus U-100 Insulin) insulin lispro 100 unit/mL 1 sliding scale dose subcut 05/21/19 01/19/22 History subcutaneous solution (Humalog USEASDIRECTD U-100 Insulin) metformin 1,000 mg tablet 1,000 mg PO BID 05/21/19 01/19/22 History gabapentin 300 mg capsule 300 mg PO PRN PRN Pain 02/14/20 01/19/22 History acyclovir 200 mg capsule 200 mg PO QID #20 caps 12/30/20 01/19/22 Rx valsartan 160 1 tablet PO DAILY #90 tabs 10/07/21 01/19/22 Rx mg-hydrochlorothiazide 25 mg tablet (Diovan HCT) amlodipine 5 mg tablet 5 mg PO DAILY #90 tabs 11/11/21 01/19/22 Rx Laboratory Tests 01/19/22 09:46 POC Capillary Glucose 149 mg/dl H mg/dl (65-105) Patient hx anesthesia problems: none Family hx anesthesia problems: none Results Review: All pre-operative results and documents have been reviewed as part of the pre-operative evaluation. [facility] Past Medical History Medical History Bilateral shoulder pain DJD of shoulder Left hip pain Left shoulder pain Other fatigue Right shoulder pain Trochanteric bursitis of left hip Type 2 diabetes mellitus without complications Surgical History Surgical History H/O total hip arthroplasty H/O total shoulder replacement History of repair of right rotator cuff Family History Family History Father Family history of lung cancer Patient's father is Mother Cerebrovascular accident Patient's mother is Other Diabetes mellitus Family history of arthritis Social History Social History Smoking status: Never smoker Second hand tobacco smoke exposure: No Alcohol intake: current Alcohol use details: on occasion Substance use: never Substance use type: does not use Living arrangements: with family Gender identity (if verbalized by the patient): Male Spiritual care concerns: No Anes - Eval Final PreProcedure Day of Procedure 01/19/22 10:03 Patient weight: morbidly obese Heart: regular rate and rhythm Lungs: clear to auscultation Airway: Mallampati scale class III Neurological: alert and oriented Last oral intake: >/= 8 hours ASA classification: III Emergent: no Anesthetic plan: proceed Anesthesia type and monitoring: general GIVS and standard monitoring Results Review: All pre-operative results and documents have been reviewed as part of the pre-operative evaluation. Informed Consent: The patient's anesthetic plan and its attendant risks and benefits were discussed with the patient/family/POA. Questions were solicited and answers provided to the satisfaction of the patient/family/POA.
--- NOTE | 2022-01-19 10:41 | WPDGICN ---
Assessment and Plan Assessment and plan (1) Encounter for screening colonoscopy: Code(s): Z12.11 - Encounter for screening for malignant neoplasm of colon Status: Acute Assessment and Plan: Patient presents today for screening colonoscopy. Appears to be at average risk for colon polyps. (2) Morbid obesity with BMI of 45.0-49.9, adult: Code(s): E66.01 - Morbid (severe) obesity due to excess calories; Z68.42 - Body mass index [BMI] 45.0-49.9, adult Status: Acute Assessment and Plan: Weight loss with calorie restriction increase activity are encouraged. GI Consult Note Consult date/time: 01/19/22 10:41 Reason for consult: Neoplasia screening. HPI: Oc Foster is a 56 year old male Presents for screening colonoscopy. Patient reports that his current weight appetite and bowel movements are normal. He denies abdominal pain. He has had no bleeding. Family history is noncontributory. Patient presents today for screening colonoscopy. Review of Systems Review of Systems: Review of systems noncontributory. [facility] Past Medical History Medical History Bilateral shoulder pain DJD of shoulder Left hip pain Left shoulder pain Other fatigue Right shoulder pain Trochanteric bursitis of left hip Type 2 diabetes mellitus without complications Surgical History Surgical History H/O total hip arthroplasty H/O total shoulder replacement History of repair of right rotator cuff Family History Family History Father Family history of lung cancer Patient's father is Mother Cerebrovascular accident Patient's mother is Other Diabetes mellitus Family history of arthritis Social History Social History Smoking status: Never smoker Second hand tobacco smoke exposure: No Alcohol intake: current Alcohol use details: on occasion Substance use: never Substance use type: does not use Living arrangements: with family Gender identity (if verbalized by the patient): Male Spiritual care concerns: No Meds Home Medications and Allergies Home Medications Medication Instructions Recorded Confirmed Type atorvastatin 20 mg tablet 20 mg PO DAILY 05/21/19 01/19/22 History insulin glargine 100 unit/mL 100 unit subcut DAILY 05/21/19 01/19/22 History subcutaneous solution (Lantus U-100 Insulin) insulin lispro 100 unit/mL 1 sliding scale dose subcut 05/21/19 01/19/22 History subcutaneous solution (Humalog USEASDIRECTD U-100 Insulin) metformin 1,000 mg tablet 1,000 mg PO BID 05/21/19 01/19/22 History gabapentin 300 mg capsule 300 mg PO PRN PRN Pain 02/14/20 01/19/22 History acyclovir 200 mg capsule 200 mg PO QID #20 caps 12/30/20 01/19/22 Rx valsartan 160 1 tablet PO DAILY #90 tabs 10/07/21 01/19/22 Rx mg-hydrochlorothiazide 25 mg tablet (Diovan HCT) amlodipine 5 mg tablet 5 mg PO DAILY #90 tabs 11/11/21 01/19/22 Rx Allergies Allergy/AdvReac Type Severity Reaction Status Date / Time Penicillins Allergy Mild Rash Verified 01/19/22 09:41 Vital Signs Vital Signs - 24 hr 01/19/22 09:42 Temperature 97.8 F Pulse Rate 75 Respiratory Rate 20 Blood Pressure 128/79 Pulse Oximetry 98 Oxygen Delivery Room Air Exam Narrative: Physical exam reveals patient to be alert. Vital signs stable. HEENT exam is unremarkable. Patient is anicteric. Lungs are clear to auscultation and percussion. Heart is without murmur or extra sounds. Abdominal exam is somewhat obese. Bowel sounds present soft nontender with no organomegaly. Digital external rectal exam is normal.
[2022-01-19 11:35] VITALS: BP 99/54; PULSE 74; RESP 22; O2SAT 100
[2022-01-19 11:45] VITALS: BP 117/54; PULSE 67; RESP 21; O2SAT 100
[2022-01-19 11:55] VITALS: BP 124/72; PULSE 64; RESP 19; O2SAT 100
== END 2022-01-19 12:07 | disposition home or self-care (01) ==
PROVIDERS: PCP Internal Medicine; Visit Provider Internal Medicine Gastroenterology
PROC: 0DJD8ZZ Inspection of Lower Intestinal Tract, Via Natural or Artificial Opening Endoscopic (ICD-10-PCS; CPT 45378; principal; 2022-01-19 10:30)
DX: Z12.11 Encounter for screening for malignant neoplasm of colon (principal); K63.5 Polyp of colon; K64.8 Other hemorrhoids; R53.83 Other fatigue; E11.9 Type 2 diabetes mellitus without complications; Z79.84 Long term (current) use of oral hypoglycemic drugs; Z79.4 Long term (current) use of insulin; E66.9 Obesity, unspecified; Z68.41 Body mass index [BMI] 40.0-44.9, adult
CPT/HCPCS: 45385; 82948; 88305; J2704; J7120

== ENCOUNTER 2022-03-11 10:14 | Outpatient (CLI) | payer OTHER, SELFPAY ==
--- NOTE | ~2022-03-11 | XR_ITS ---
EXAMINATION: XR ribs LT 2V w CXR 2V INDICATION: Pleurodynia TECHNIQUE: PA and lateral views of the chest and 3 views of the left ribs were obtained. COMPARISON: 07/07/2020 FINDINGS: The lungs are free of acute opacities. No pleural effusion or pneumothorax. Changes of left shoulder arthroplasty are noted. There is advanced osteoarthritis of the right glenohumeral joint. T here is severe thoracic spondylosis. IMPRESSION: 1. No acute cardiopulmonary abnormality or evidence of displaced rib fracture. Reviewed, dictated and finalized at location B.
== END 2022-03-11 10:15 | disposition home or self-care (01) ==
PROVIDERS: PCP Internal Medicine; Visit Provider Physician Assistant
DX: R07.81 Pleurodynia (principal); M47.814 Spondylosis without myelopathy or radiculopathy, thoracic region
CPT/HCPCS: 71046; 71100

== ENCOUNTER → 2022-08-04 09:43 | Outpatient (CLI) | payer OTHER, SELFPAY ==
--- NOTE | ~2022-08-04 | XR_ITS ---
EXAMINATION: XR lumbar spine 6V w bending DATE: 08/04/2022 10:13 INDICATION: Worsening low back pain TECHNIQUE: Anteroposterior, lateral in neutral, flexion and extension, and bilateral oblique views of the lumbar spine, and cone-down lateral view of the lumbosacral junction were obtained. COMPARISON: 08/19/2017 FINDINGS: There are 6 mm of stable anterolisthesis of L5 on S1. There are 2 mm of retrolisthesis of L 3 on L4 and L4 and L5. Chronic anterior wedging is noted at the thoracolumbar junction. There is no f racture. There is no hypermobility with flexion or extension. There is mild loss of intervertebral di sc space height throughout the lumbar spine. Small degenerative osteophytes project from the anterior endplates of multiple vertebral bodies. There is moderate facet joint osteoarthritis of the lower alfredo mbar spine. Degenerative osteophytes project from the anterior endplates of multiple vertebral bodies . IMPRESSION: 1. Moderate to severe lumbar spondylosis without acute findings or significant interval change. Reviewed, dictated and finalized at location B. ONAL INSURANCE OFFICER
== END ==
PROVIDERS: PCP Internal Medicine; Visit Provider Physician Assistant
DX: M47.816 Spondylosis without myelopathy or radiculopathy, lumbar region (principal); M54.50 Low back pain, unspecified; G89.29 Other chronic pain
CPT/HCPCS: 72114

== ENCOUNTER → 2022-08-19 14:47 | Outpatient (CLI) | payer OTHER, SELFPAY ==
--- NOTE | ~2022-08-19 | MR_ITS ---
EXAMINATION: MR lumbar spine wo con DATE: 08/19/2022 15:15 INDICATION: Low back pain. Left leg pain. TECHNIQUE: Magnetic resonance imaging (MRI) of the lumbar spine was performed without intravenous con trast. Sequences included sagittal T2-weighted FSE, sagittal T2-weighted FS FSE, sagittal T1-weighted FSE, and axial T2-weighted FSE. COMPARISON: Lumbar spine radiographs 08/04/2022 FINDINGS: There is 3 degrees levocurvature of lumbar spine. There are chronic bilateral L5 pars defec ts. There is 3 mm anterolisthesis of L5 on S1. There is mild chronic anterior wedging of T10-L2 verte bral bodies. There is severely decreased disc height at L4-L5 and mildly decreased disc height at L5- S1. The distal spinal cord signal intensity is normal. The conus medullaris is at L1-L2. The followin g disc levels are specifically discussed: L1-L2: The disc is bulging with superimposed large central extrusion. There is mild bilateral facet j oint osteoarthritis. There is moderate right and mild left neural foraminal stenosis. There is mild c entral canal stenosis. L2-L3: The disc is mildly bulging. There is mild bilateral facet joint osteoarthritis. There is mild bilateral neural foraminal stenosis. There is no central canal stenosis. L3-L4: The disc is mildly bulging. There is mild bilateral facet joint osteoarthritis. There is mild bilateral neural foraminal stenosis. There is no central canal stenosis. L4-L5: The disc is bulging and has an annular fissure. There is severe bilateral facet joint osteoart hritis. There is moderate right and mild left neural foraminal stenosis. There is mild central canal stenosis. L5-S1: The disc is bulging and has an annular fissure. There is severe bilateral facet joint osteoart hritis. There is mild right and moderate left neural foraminal stenosis. There is no central canal st enosis. IMPRESSION: 1. Severe lumbar spondylosis. 2. Chronic bilateral L5 pars defects with grade 1 anterolisthesis of L5 on S1. Reviewed, dictated and finalized at location A. CHING MACHINE OPERATOR
== END ==
PROVIDERS: PCP Internal Medicine; Visit Provider Physician Assistant
DX: G89.29 Other chronic pain (principal); M54.50 Low back pain, unspecified; M43.06 Spondylolysis, lumbar region; M53.86 Other specified dorsopathies, lumbar region; M43.17 Spondylolisthesis, lumbosacral region
CPT/HCPCS: 72148

== ENCOUNTER 2022-09-18 11:42 | Emergency (ER) | payer OTHER, SELFPAY ==
--- NOTE | 2022-09-18 11:47 | ED.EAR ---
HPI - Ear Problem General Chief complaint: Ear Stated complaint: Left Ear Irritation Time Seen by Provider: 09/18/22 11:47 Source: patient Mode of arrival: ambulatory Limitations: no limitations History of Present Illness HPI Narrative: Mr. Foster is a 57-year-old male patient presenting to clinic today with complaints of left ear discomfort and slight sore throat. He reports he normally has postnasal drip. States he is post be going scuba diving it in a couple weeks and is wanting his ear looked at/treated Related Data Home Medications Medication Instructions Recorded Confirmed atorvastatin 20 mg tablet 20 mg PO DAILY 05/21/19 09/18/22 metformin 1,000 mg tablet 1,000 mg PO BID 05/21/19 09/18/22 Allergies Allergy/AdvReac Type Severity Reaction Status Date / Time dapagliflozin [From [facility]] AdvReac Mild Rash Verified 09/18/22 11:51 Penicillins AdvReac Mild Rash Verified 09/18/22 11:51 Review of Systems Review of Systems: Pertinent positives per HPI. Patient denies any fever, chills, rash, headache, visual changes, dizziness, cough, runny nose, sore throat, shortness of breath, chest pain, palpitations, nausea, vomiting, diarrhea, constipation, abdominal pain, or any urinary issues. [facility] Past Medical History Medical History Bilateral shoulder pain DJD of shoulder Left hip pain Left shoulder pain Other fatigue Right shoulder pain Trochanteric bursitis of left hip Type 2 diabetes mellitus without complications Surgical History Surgical History H/O total hip arthroplasty H/O total shoulder replacement History of repair of right rotator cuff Family History Family History Father Family history of lung cancer Patient's father is Mother Cerebrovascular accident Patient's mother is Other Diabetes mellitus Family history of arthritis Social History Social History Smoking status: Never smoker Second hand tobacco smoke exposure: No Alcohol intake: current Alcohol use details: on occasion Substance use: never Substance use type: does not use Lack of Transportation: No Lack of Food: Never True Current Housing: I Have Housing Concerned About Future Housing: No Difficulty Paying Gas/Electric Bills: No Difficulty Paying for Meds: No Currently Unemployed: No Education: Master's Degree or Higher Difficulty w/ Childcare or Family Care: No Living arrangements: with family Gender identity (if verbalized by the patient): Male Spiritual care concerns: No Comments At the time of my signature, I reviewed and agree with the nursing past medical, surgical, social, and family history. There is no relevant family history pertinent to the patient complaint. Exam Narrative: General: Well-developed, well nourished, in no apparent distress Head: Normocephalic, atraumatic Eyes: Pupils equally round and reactive to light bilaterally, EOM intact, sclera and conjunctive clear, no discharge, lids normal Ears: Right tMs intact and clear, left TM intact, mild bulging, cerumen up against the TM ear irrigation was performed and wax was removed, ear canals clear, no drainage, grossly hearing normal. Nose: Nares patent, no discharge, no inflammation, no sinus tenderness. Mouth: Oropharynx without lesions or masses, good dentition, MMM. Postnasal drip Neck: Supple, trachea midline, no enlargement of anterior or posterior cervical nodes, no thyroid masses or goiter palpable. Cardio: Regular rate and rhythm, s1 and s2 normal, no murmur appreciated. Resp: Clear to auscultation bilaterally anteriorly and posteriorly, no rhonchi, rales, wheezing or rubs Course Course Emergency Course: Portions of this record may have been create
[2022-09-18 12:01] VITALS: BP 111/70; PULSE 70; RESP 18; TEMP 36.7; O2SAT 97
== END 2022-09-18 12:32 | disposition home or self-care (01) ==
PROVIDERS: Emergency Provider Nurse Practitioner Family; PCP Internal Medicine
DX: H69.92 Unspecified Eustachian tube disorder, left ear (principal); H61.22 Impacted cerumen, left ear; E11.9 Type 2 diabetes mellitus without complications
CPT/HCPCS: 69209; 87081; 87880; 99213; G0463

== ENCOUNTER 2024-04-19 14:16 | Outpatient (CLI) | payer OTHER, SELFPAY ==
--- NOTE | ~2024-04-19 | MR_ITS ---
EXAMINATION: MR lumbar spine wo con DATE: 04/19/2024 15:05 INDICATION: Low back pain. TECHNIQUE: Magnetic resonance imaging (MRI) of the lumbar spine was performed without intravenous con trast. Sequences included sagittal T2-weighted FSE, sagittal T2-weighted FS FSE, sagittal T1-weighted FSE, and axial T2-weighted FSE. COMPARISON: Lumbar spine MRI 08/19/2022 FINDINGS: There are chronic bilateral L5 pars defects. There is 3 mm anterolisthesis of L5 on S1. The re is mild chronic anterior wedging of T11, T12, L1, and L2 vertebral bodies. There is mildly decreas ed disc height at L1-L2, severely decreased disc height at L4-L5, and moderately decreased disc heigh t at L5-S1. The distal spinal cord signal intensity is normal. The conus medullaris is at L1. The fol lowing disc levels are specifically discussed: L1-L2: The disc is bulging with superimposed central extrusion. There is mild bilateral facet joint o steoarthritis. There is moderate right and mild left neural foraminal stenosis. There is mild central canal stenosis. L2-L3: The disc is bulging. There is mild bilateral facet joint osteoarthritis. There is mild bilater al neural foraminal stenosis. There is no central canal stenosis. L3-L4: The disc is mildly bulging. There is moderate bilateral facet joint osteoarthritis. There is m ild bilateral neural foraminal stenosis. There is no central canal stenosis. L4-L5: The disc is bulging. There is severe bilateral facet joint osteoarthritis. There is moderate r ight and mild left neural foraminal stenosis. There is mild central canal stenosis. L5-S1: The disc is bulging and has an annular fissure. There is severe bilateral facet joint osteoart hritis. There is mild right and moderate left neural foraminal stenosis. There is mild central canal stenosis. IMPRESSION: 1. Severe lumbar spondylosis, stable from 08/19/2022. 2. Chronic bilateral L5 pars defects with grade 1 anterolisthesis of L5 on S1. Reviewed, dictated and finalized at location A.
== END 2024-04-19 14:17 | disposition home or self-care (01) ==
PROVIDERS: PCP Physical Medicine & Rehabilitation Pain Medicine; Visit Provider Physical Medicine & Rehabilitation Pain Medicine
DX: M54.51 Vertebrogenic low back pain (principal)
CPT/HCPCS: 72148

== ENCOUNTER 2024-08-29 15:14 | Outpatient (CLI) | payer OTHER, SELFPAY ==
--- NOTE | ~2024-08-29 | XR_ITS ---
SINGLE AP VIEW PELVIS Ordering provider: Jazmin Schofield MD History: . Sacroiliitis . Comparison: None. FINDINGS: BONES: No acute fracture or dislocation. HIP JOINT SPACES: Left hip arthroplasty. Mild to moderate right hip osteoarthritic changes. SACROILIAC JOINT SPACES/LUMBAR SPINE: The sacroiliac joint spaces shows bilateral sacroiliitis.. Mild degenerative changes of the visualized lower lumbar spine. PUBIC SYMPHYSIS: Pubic symphysitis. SOFT TISSUES: Normal. IMPRESSION: No acute osseous abnormality pelvis. Bilateral sacroiliitis. Left hip arthroplasty. Reviewed, dictated and finalized at location A. LINE STATION ENGINEER
== END 2024-08-29 15:15 | disposition home or self-care (01) ==
LOC: MICIMG 15:14
PROVIDERS: PCP Physical Medicine & Rehabilitation Pain Medicine; Visit Provider Physical Medicine & Rehabilitation Pain Medicine
DX: M46.1 Sacroiliitis, not elsewhere classified (principal); Z96.642 Presence of left artificial hip joint
CPT/HCPCS: 72190

== ENCOUNTER 2024-09-06 14:18 | Outpatient (CLI) | payer OTHER, SELFPAY ==
--- NOTE | ~2024-09-06 | CT_ITS ---
EXAMINATION: CT sinus wo con DATE: 09/06/2024 14:30 INDICATION: Chronic sinusitis. TECHNIQUE: Computed tomography (CT) of the paranasal sinuses was performed without intravenous contra st. Iterative reconstruction technique was employed. The dose-length product was 272.93 mGy-cm. COMPARISON: Head CT 05/20/2021 FINDINGS: There is mild mucosal thickening in the frontal and bilateral ethmoid sinuses. There is an old blowout fracture of floor of left orbit with reconstruction plate. There is a plate with screws a t the left inferior orbital rim. There is mild mucosal thickening in the maxillary sinuses. The sphen oid sinuses are clear. There is rightward deviation of superior nasal septum and leftward deviation o f the inferior nasal septum with left lateral spur. The ostiomeatal units are patent. IMPRESSION: 1. Mild mucosal thickening in the paranasal sinuses. 2. Rightward deviation of superior nasal septum and leftward deviation of inferior nasal septum. Reviewed, dictated and finalized at location L. IMPRESSION: 1. Mild mucosal thickening in the paranasal sinuses. 2. Rightward deviation of superior nasal septum and leftward deviation of infer ior nasal septum.
== END 2024-09-06 14:19 | disposition home or self-care (01) ==
PROVIDERS: PCP Internal Medicine; Visit Provider Nurse Practitioner Family
DX: J34.89 Other specified disorders of nose and nasal sinuses (principal); J34.2 Deviated nasal septum; J32.9 Chronic sinusitis, unspecified
CPT/HCPCS: 70486

== ENCOUNTER 2024-09-30 11:44 | Inpatient (IN) | payer OTHER, SELFPAY ==
--- NOTE | ~2024-09-30 | CT_ITS ---
CT abdomen w con Ordering provider: Seymour Fiore History: 59 years Male with . abd pain . Comparison: None. Technique: CT abdomen with IV and without oral contrast. Automated exposure control and iterative rec onstruction technique were employed. The dose-length product was 842.38 mGy-cm. 100 mL Omnipaque 350 was given IV. Findings: VISUALIZED LOWER CHEST: Dependent atelectatic changes. UPPER ABDOMINAL ORGANS: Liver: Hepatomegaly. Innumerable hypodensities in the liver which are most likely metastatic lesions with the largest measures 7.2 x 8.2 cm and 5.8 x 5.3 cm in the right lobe segment #7 primary liver tu mor is also possible. Gallbladder: Normal. Spleen: Normal. Stomach/duodenum: Normal. Pancreas: Hypodensity in the head of the pancreas is noted measuring 4.3 x 4.6 cm and compressing the third part of the duodenum. Adrenals: Left adrenal adenoma is seen which measures 2.4 cm most likely metastatic. Kidneys: Normal. Small hypodensity seen in the left kidney midpole most likely stenosis. BOWEL AND MESENTERY: Colon: No evidence of diverticulitis in the visualized colon. Fecal material is loaded in the colon.. Appendix is not demonstrated. Small Bowel: Normal. No obstruction, the visualized bowel.. Peritoneum/mesentery: No free air.. No mesenteric lymphadenopathy. Trace of fluid seen in the root of the mesentery area. RETROPERITONEUM: Mild atheromatous disease of the abdominal aorta. No retroperitoneal lymphadenopat hy. MUSCULOSKELETAL: Superficial soft tissues: The superficial soft tissues are normal. Bones: Age appropriate degenerative changes of the spine. Spondylolysis at the level of L5-S1. IMPRESSION: 1. Multiple masses in the liver which are most likely metastatic, but primary liver tumor cannot be excluded. 2. Mass in the head of the pancreas suggestive of malignant mass. MRI evaluation advised. 3. Left adrenal mass which is most likely metastatic. 4. Constipation. Reviewed, dictated and finalized at location A. IMPRESSION: 1. Multiple masses in the liver which are most likely metastatic, but primary liver tumor cannot be excluded. 2. Mass in the head of the pancreas suggestive of malignant mass. MRI evaluati on advised. 3. Left adrenal mass which is most likely metastatic. 4. Constipation.
--- NOTE | ~2024-09-30 | US_ITS ---
HISTORY: Liver mass PROCEDURE: Ultrasound Guided Biopsy of left hepatic mass FOOT WORKER: Nikhil SANTACRUZS: lidocaine 5 cc subcutaneous TECHNIQUE: Informed written consent was obtained from the patient for liver biopsy. Risks of bleeding and infect ion were discussed. Patient was placed supine in the ultrasound suite and the area over the left hepatic lobe in the mida bdomen was prepped and draped using usual sterile technique. The skin was the anesthetized with lidocaine and a small dermatotomy was made. An 18 gauge core biops y needle was then advanced once and the sample was placed into formalin. Hemostasis was achieved, the site was dressed, and the patient was discharged to recovery in stable c ondition. Patient tolerated the procedure well. The sample was sent to pathology for evaluation. Conscious sedation was used under the guidance of the interventional radiologist for approximately 30 minutes. Findings: Liver Biopsy was performed and postprocedural imaging demonstrates no evidence of hematoma. IMPRESSION: Successful 18 gauge core liver biopsy. Reviewed, dictated and finalized at location A.
--- OUTSIDE RECORDS SUMMARY | 2024-09-30 11:46 | XMS_ITS | CONTINUITY OF CARE DOCUMENT ---
Author Name aaron walker Address Unknown Organization [facility] Address [address] [place] [address] Phone [phone] Care Team Providers Care Tight Cooper Name Role Phone RADHA WANG MD Unavailable RADHA WANG MD Unavailable [phone] INSURANCE PROVIDERS Payer name Policy type / Coverage type [place] party ID [facility] Other [id number]
--- OUTSIDE RECORDS SUMMARY | 2024-09-30 11:46 | XMS_ITS | Clinical Summary ---
Author Organization [facility] Address [address] [place] [address] Care Team Providers Care Calciner Operator Helper Name Role Phone WinstonJarekDurankarlos Nicole DO Primary Care Provider [phone] Source Comments [facility],non-owned Affiliates and Associated Physician Practices is amultiple site organization consisting of ambulatory clinics and hospital sitesin [place], [place] and [place]. This disclosure is being madepursuant to the Care Everywhere program and may not contain all information available regarding this patient. Last updated 18.[facility] Allergies Active Allergy Reactions Criticality Noted Date Comments Penicillins Rash High 07/11/2012 As child Medications * Be aware that medications may not be up to date on this document. Alwaysverify current medications with the patient. Medication Sig Dispensed Refills Start Date End Date Status metFORMIN (GLUCOPHAGE) 1000 MG tablet Take 1,000 mg by mouth 2 times daily with morning and evening meal. Active GLIMEPIRIDE PO Take 10 mg by mouth 2 times daily. Active lisinopril (PRINIVIL; ZESTRIL) 10 MG tablet Take 10 mg by mouth 2 times daily. Active glucosamine 500 MG CAPS capsule Take 1 Cap by mouth once daily. Active Insulin Glargine (LANTUS SC)Indications:Mor bid obesity (HCC) Inject 40 Units subcutaneously once daily. Active exenatide (BYETTA 10 MCG PEN) 10 MCG/0.04ML injectionIndicatio ns:Morbid obesity (HCC) 2 times daily. Active Active Problems Problem Noted Date Diagnosed Date Type II or unspecified type diabetes mellitus without mention of complication, not stated as uncontrolled 07/11/2012 Social History Tobacco Use Types Packs/Day Years Used Date Smoking Tobacco: Never Smokeless Tobacco: Never Sex and Gender Information Value Date Recorded Sex Assigned at Not on file Gender Identity Not on file Sexual Orientation Not on file Last Filed Vital Signs Vital Sign Reading Time Taken Comments Blood Pressure 128/86 12/15/2016 6:22 PM CDT Pulse 69 12/15/2016 6:22 PM CDT Temperature 37.1 C (98.8 F) 12/15/2016 6:22 PM CDT Respiratory Rate 16 12/15/2016 6:22 PM CDT Oxygen Saturation 97% 12/15/2016 6:22 PM CDT Inhaled Oxygen Concentration - - Weight 140.6 kg (310 lb) 12/15/2016 6:22 PM CDT Height 175.3 cm (5' 9 ) 12/15/2016 6:22 PM CDT Body Mass Index 45.78 12/15/2016 6:22 PM CDT Plan of Treatment Health Maintenance Due Date Last Done Comments COLOGUARD (AGES 45-75) - COL ON CA SCREENING 1965 COLON MONITORING 1965 COLONOSCOPY - COLON CA SCREENING 1965 CT COLONOGRAPHY - COLON CA SCREENING 1965 Colorectal Cancer Screening 1965 FIT - COLON CA SCREENING 1965 FLEX SIG - COLON CA SCREENING 1965 LIPID TESTING 1965 HIV SCREENING 1980 HEPATITIS C SCREENING 03/26/1983 DTAP/TDAP/TD VACCINES (1 - Tdap) 1984 HEPATITIS B VACCINE (1 of 3 - 19+ 3-dose series) 1984 PNEUMOCOCCAL VACCINE (1 of 2 - PCV) 1984 PNEUMOCOCCAL VACCINE 50+ (1 of 1 - PCV) 2015 ZOSTER VACCINE (1 of 2) 2015 COVID-19 VACCINE ( - 2023-2 5 season) 2024 DEPRESSION SCREENING 06/27/2024 INFLUENZA VACCINE (Season Ended) 2025 HIB VACCINE Aged Out No longer eligi ble based on patient's age to complete this topic HPV VACCINE Aged Out No longer eligi ble based on patient's age to complete this topic MENINGOCOCCAL (Group B) VACC INE SHARED DECISION-MAKING Aged Out No longer eligibl e based on patient's age to complete this topic MENINGOCOCCAL GROUPS A/C/Y/W VACCINE Aged Out No longer eligible b ased on patient's age to complete this topic Care Teams Calciner Operator Helper Relationship Specialty Start Date End Date Duran Montero DO [address] [facility] [address] [place] [address] PCP - General 07/14/12
--- OUTSIDE RECORDS SUMMARY | 2024-09-30 11:46 | XMS_ITS | Clinical Summary ---
Author Organization [facility] Address [address] [place] [address] Phone Care Team Providers Care Environmental Compliance Officer Name Role Phone Unavailable Primary Care Provider Unavailabl e Social History Tobacco Use Types Packs/Day Years Used Date Smoking Tobacco: Never Assessed Sex and Gender Information Value Date Recorded Sex Assigned at Not on file Legal Sex Male 12:10 PM CDT Gender Identity Not on file Sexual Orientation Not on file Plan of Treatment Health Maintenance Due Date Last Done Comments DTAP/TDAP/TD VACCINES (1 - Tdap) 1984 HEPATITIS B VACCINES (1 of 3 - 19+ 3-dose series) 1984 COLORECTAL SCREENING 2010 Colorectal Cancer Screening 2010 FIT-DNA Q 3 years 2010 FIT/FOBT Q 1 year 2010 Flex Sig/CT Colonography Q 5 years 2010 ZOSTER VACCINE (1 of 2) 2015 INFLUENZA VACCINE (#1) 2024 PNEUMOCOCCAL VACCINE 0-49 YEARS Aged Out No longer eligible based on patient's age to complete this topic
--- OUTSIDE RECORDS SUMMARY | 2024-09-30 11:46 | XMS_ITS | Data Portability ---
Author Organization [place] [facility] [employer], Main Office Address [address] [place] [address] Care Team Providers Care Electric Tape Slitter Name Role Phone COLT BALLESTEROS Primary Care Provider COLT BALLESTEROS Referring Provider [phone] Assessment Encounter Date Assessment Date Assessment LastModified by Organization Details LastModified Time 04/02/2024 04/02/2024 This note is dictated and transcribed by [employer]. Wedding Day Coordinator variances may occur. Despite proofreading, typographical errors may occur. Occasional wrong-word or 'auptq-p-dsnh' substitutions may have occurred due to the inherent limitations of voice recording. Read the chart carefully and recognize, using context, where substitutions have occurred. Not available 04/02/2024 16:25:20 05/03/2024 05/03/2024 This note is dictated and transcribed by [employer]. Wedding Day Coordinator variances may occur. Despite proofreading, typographical errors may occur. Occasional wrong-word or 'gmize-f-jvpv' substitutions may have occurred due to the inherent limitations of voice recording. Read the chart carefully and recognize, using context, where substitutions have occurred. Not available 05/03/2024 15:58:54 07/05/2024 07/05/2024 This note is dictated and transcribed by [employer]. Wedding Day Coordinator variances may occur. Despite proofreading, typographical errors may occur. Occasional wrong-word or 'ajqkg-z-oqaj' substitutions may have occurred due to the inherent limitations of voice recording. Read the chart carefully and recognize, using context, where substitutions have occurred. Not available 07/05/2024 15:44:48 Plan of Treatment Reminders Order Date Submit Date Provider Last Modified By Organization Details Last Modified Time Details Appointments Procedure 15 2024 09:30A M Romeo Kaur MD Not available Not available Not available Post-Op 15 2024 02:30P M MARIA ISABEL Peres Not available Not available Not available Lab None recorded. Referral None recorded. Procedures None recorded. Surgeries septoplas ty (SURG) 2024 025 [email or web address] Not available 09/19/2024 09:46:22 Imaging XR, foot, 3 or more view 2023 024 [email or web address] [facility] [place], [facility], [place], [address], 04/02/2024 16:32:48 Medication Orders doxycycli ne hyclate 100 mg tablet 2024 025 [id number] [address], [place], [phone], 09/17/2024 08:42:14 Medrol (King) 4 mg tablets in a dose pack 2024 025 [id number], [address], [place], [phone], 09/17/2024 08:42:19 Patient TargetsNo targets recorded. Patient Instructions Encounter Date Encounter Id Patient Instructions Last Modified By Organization Details Last Modified Time 04/02/2024 [id number] plantar fasciiti s: exercises [email or web address] Not available 04/02/2024 16:26:19 plantar fasciiti s education [email or web address] Not available 04/02/2024 16:26:19 08/29/2024 [id number] doxycycline and Medrol Dosepak prescribed for antimicrobial coverage and inflammation reduction. Advised to closely monitor his blood sugars while taking the Medrol Dosepak. States that he has been on steroid injections in the past and is not concerned with being on a steroid. He will have a sinus CT completed. We will follow up when those results become available. [email or web address] Not available 08/29/2024 16:03:49 Reason for Referral None Reported. Results Created Date Observation Date Name Description Value Unit Range Abnormal Flag Note LastModifiedBy Organization Detail LastModifiedTime 04/02/20 24 XR, foot, 3 or more view No observ ation record ed. [email or web address] [facility] [place] [address], [place], [address], 04/02/2024 16:32:47 09/15/19 25 09/13/2024 CT, sinus es, w/o contr ast No observ ation record ed. [facility] [address], [place], [address], 09/14/2024 09:18:32 Result Notes None recorded. Problems Name Problem SNOMED Code Status Onset Date Resolution Date Notes Provider Name and Address Organization Details Recorded Time Plantar fasciitis of left foot 1070204864693 9101 Active 2017 Not Available [employer] 3 20:23:44 Ankle pain 998175447 Active 2019 Not Available [employer] 3 20:23:44 Ankle pain 610772851 Active 2020 Not Available [employer] 3 20:23:44 Ankle pain 284163083 Active 2019 Not Available [employer] 3 20:23:44 Left Achilles tendinitis 3133647133463 02 Active 2020 Not Available [employer] 3 20:23:44 Arthritis 1444689 Active 2017 Not Available [employer] 3 20:23:44 Sleep disorder 39985845 Active 2017 Not Available [employer] 3 20:23:44 Obesity 855669545 Active 2017 Not Available [employer] 3 20:23:44 Diabetes mellitus 27309046 Active 2017 Not Available [employer] 3 20:23:44 Degenerati ve joint disease of ankle AND/OR foot 22445234 Active 2019 Not Available [employer] 3 20:23:44 Pain of right knee joint 3967310001576 00 Active 2022 Franca Tang, RMA null, [facility] [employer] [facility] 3 09:11:59 Pain of left knee joint 3492427967524 07 Active 2022 Hoda Karla, ATC L null, [facility] [employer] [facility] 3 11:15:12 Bilateral osteoarthr itis of knees 2471867365655 07 Active 2022 Arabella Flores null, [facility] [employer] [facility] 3 11:39:59 Pain of left heel 8618773528469 109 Active 2023 Varun Nelson DPM [address], [address], [place], [address] , [facility] [employer] [facility] 4 16:25:24 Chronic sinusitis 62457761 Active 2024 Bárbara Desouza RN null, [facility] [employer] [facility] 5 15:58:48 Deviated nasal septum 873170950 Active 2024 Romeo Kaur MD [address], [address], [place], [address] , [facility] [employer] 5 11:05:47 Notes:back/neck problems, ea r problems, muscle pain, excessive thirst, Problem Notes None recorded. Procedures Surgical History Date Name Laterality Status Provider Name and Address Organization Details Recorded Time 05/03/20 24 Plantar Fascia Injection Left Foot completed Varun Nelson DPM [address], [address], [place], [address], [facility] [employer] [facility] 05/09/2024 17:46:33 11/25/19 23 Ortho - Cortisone Injection completed Nicolasa Arias NP [address], [address], [place], [address], [facility] [employer] [facility] 11/24/2022 19:12:14 repair of hip completed Erika Cosby [facility] [employer] [facility] 04/02/2024 16:38:46 arthroplasty of left shoulder completed Erika [facility] [place] [facility] 04/02/2024 16:39:04 Imaging Results Imaging Date Name Status LastModified by Organiz ation Details LastModified Time 04/02/2024 XR, foot, 3 or more view completed [email or web address] [facility] [place] [address], [place], [address], 04/02/2024 16:32:47 09/13/2024 CT, sinuses, w/o contrast completed [facility] [address], [place], [address], 09/14/2024 09:18:32 Procedure Notes None recorded. Medical Equipment None Reported. Allergies Allergen ID Allergen Name Allergen Category Reaction Reaction Severity Criticality Documentation Date Start Date Code Code System Note Provider Name and Address Organization Details Recorded Time 65670 Product containin g penicilli n (product) medicatio n Not available Not available Not available 08/25/2022 30487 8001 SNOMED Not Available [facility] 3 20:25:00 15778 Farxiga medicatio n Not available Not available Not available 10/15/2022 05868 72 RxNorm Hoda Acosta , ATC L camelia, [facility] [employer] [facility] 3 09:17:51 Medications Name Sig Start Date Stop Date Status Note LastModified by Organization Details LastModified Time celecoxib 200 mg capsule TAKE 1 CAPSULE DAILY 2024 active Not Available Not Available Not Avai lable latanoprost 0.005 % eye drops INT 1 GTT IN OU QD IN THE VENESSA active Not Available Not Available No t Available methocarbam ol 500 mg tablet TK 2 TS PO Q 6 H PRN 10/15 completed Not Available Not Available Not Available atorvastati n 20 mg tablet active Not Available Not Available Not Available loperamide 2 mg capsule 08/09 completed Not Available Not Available Not Available azithromyci n 250 mg tablet TAKE DIRECTED 10/15 completed Not Available Not Available Not Available meloxicam 15 mg tablet TAKE 1 TABLET BY MOUTH EVERY DAY 11/01 completed Not Available Not Available Not Available atovaquone 250 mg-proguani l 100 mg tablet TAKE 1 TABLET BY MOUTH WITH FOOD STARTING THE DAY BEFORE TRAVEL DURING TRIP AND 7 DAYS UPON RETURN active Not Available Not Available No t Available ondansetron HCl 4 mg tablet 08/09 completed Not Available Not Available Not Available prednisone 20 mg tablet TAKE 2 TABLETS BY MOUTH DAILY FOR 5 DAYS 10/15 completed Not Available Not Available Not Available valsartan 80 mg tablet TAKE 1 TABLET BY MOUTH DAILY FOR 2 WEEKS 10/15 completed Not Available Not Available Not Available phentermine 37.5 mg tablet TK ONE C PO QAM 08/29 completed Not Available Not Available Not Available amlodipine 5 mg tablet 10/15 completed Not Available Not Available Not Available ciprofloxac in 500 mg tablet TAKE 1 TABLET BY MOUTH EVERY 12 HOURS 10/15 completed Not Available Not Available Not Available tramadol 50 mg tablet TK 1 T PO BID PRF PAIN 10/15 completed Not Available Not Available Not Available glimepiride 2 mg tablet 08/29 completed Not Available Not Available Not Available glimepiride 1 mg tablet 10/15 completed Not Available Not Available Not Available nortriptyli ne 25 mg capsule active Not Available Not Available Not Available bupropion HCl 100 mg tablet 10/15 completed Not Available Not Available Not Available famotidine 20 mg tablet TK 1 T PO D 08/09 completed Not Available Not Available Not Available lorazepam 2 mg tablet 10/15 completed Not Available Not Available Not Available amlodipine 10 mg tablet TAKE 1 TABLET BY MOUTH DAILY 10/15 completed Not Available Not Available Not Available timolol maleate 0.25 % eye drops INSTILL 1 DROP IN BOTH EYES TWICE DAILY 11/01 completed Not Available Not Available Not Available hydrocodone 7.5 mg-acetamin ophen 325 mg tablet TAKE ONE TABLET BY MOUTH EVERY 4 TO 6 HOURS NEEDED FOR PAIN 10/15 completed Not Available Not Available Not Available pantoprazol e 40 mg tablet,forest yed release 08/09 completed Not Available Not Available Not Available clotrimazol e-betametha sone 1 %-0.05 % topical cream APPLY EXTERNALL Y TO THE AFFECTED AREA EVERY DAY 10/15 completed Not Available Not Available Not Available lisinopril 10 mg tablet Take 1 tablet every day by oral route. 10/15 completed Not Available Not Available Not Available gabapentin 300 mg capsule 08/29 completed Not Available Not Available Not Available diclofenac sodium 75 mg tablet,forest yed release TK 1 T PO BID 10/15 completed Not Available Not Available Not Available etodolac 400 mg tablet TAKE 1 TABLET BY MOUTH EVERY DAY TAKE BEFORE PLAYING SPORTS AND TAKE WITH FOOD 08/29 completed Not Available Not Available Not Available acyclovir 200 mg capsule TAKE 1 CAPSULE BY MOUTH FOUR TIMES DAILY 10/15 completed Not Available Not Available Not Available mupirocin 2 % topical ointment 10/15 completed Not Available Not Available Not Available diclofenac sodium 50 mg tablet,forest yed release TAKE 1 TABLET BY MOUTH TWICE DAILY WITH FOOD 11/01 completed Not Available Not Available Not Available methylpredn isolone 4 mg tablets in a dose pack FOLLOW PACKAGE DIRECTION S 09/17 completed Not Available Not Available Not Available fluticasone propionate 50 mcg/actuati on nasal spray,suspe nsion SHAKE LIQUID AND USE 2 SPRAYS IN EACH NOSTRIL DAILY NEEDED FOR NASAL CONGESTIO N 04/02 completed Not Available Not Available Not Available metformin ER 500 mg tablet,exte nded release 24 hr 11/01 completed Not Available Not Available Not Available doxycycline hyclate 100 mg tablet TAKE 1 TABLET BY MOUTH TWICE DAILY FOR 10 DAYS 09/17 completed Not Available Not Available Not Available dicyclomine 10 mg capsule 08/09 completed Not Available Not Available Not Available phentermine 37.5 mg capsule 10/15 completed Not Available Not Available Not Available dorzolamide 2 % eye drops 11/01 completed Not Available Not Available Not Available Ventolin HFA 90 mcg/actuati on aerosol inhaler 08/09 completed Not Available Not Available Not Available valsartan 160 mg-hydrochl orothiazide 25 mg tablet TAKE 1 TABLET BY MOUTH DAILY active Not Available Not Available No t Available azithromyci n 500 mg tablet TAKE 1 TABLET BY MOUTH ONCE DAILY 09/17 completed Not Available Not Available Not Available valsartan 40 mg tablet 10/15 completed Not Available Not Available Not Available metformin 1 gram bid active Not Available Not Available No t Available glimepiride 10/15 completed Not Available Not Available Not Available Lantus U-100 Insulin active Not Available Not Available Not Available BD Ultra-Fine Short Pen Needle 31 gauge x 11/09 completed Not Available Not Available Not Available peg 3350-electr olytes 236 gram-22.74 gram-6.74 gram-5.86 gram solution TAKE DIRECTED. 240 ML BY MOUTH EVERY 10 MINUTES 10/15 completed Not Available Not Available Not Available Lantus Solostar U-100 Insulin 100 unit/mL (3 mL) subcutaneou s pen 10/15 completed Not Available Not Available Not Available Humalog KwikPen (U-100) Insulin 100 unit/mL subcutaneou s active Not Available Not Available Not Available OneTouch Verio test strips 10/15 completed Not Available Not Available Not Available Farxiga 5 mg tablet 08/09 completed Not Available Not Available Not Available Farxiga 08/09 completed Not Available Not Available Not Available Bydureon 2 mg/0.65 mL subcutaneou s pen injector 10/15 completed Not Available Not Available Not Available Bydureon BCise 2 mg/0.85 mL subcutaneou s auto-inject or 10/15 completed Not Available Not Available Not Available Ozempic 0.25 mg or 0.5 mg (2 mg/1.5 mL) subcutaneou s pen injector 10/15 completed Not Available Not Available Not Available OneTouch Ultra Blue Test Strip 10/15 completed Not Available Not Available Not Available ID NOW COVID-19 Test Kit TEST DIRECTED 10/15 completed Not Available Not Available Not Available FreeStyle Treasure 2 Sensor kit active Not Available Not Available N ot Available Semglee (insulin glargine-yf gn) Pen 100 unit/mL (3 mL) subcutaneou s active Not Available Not Available Not Available Ozempic 2 mg/dose (8 mg/3 mL) subcutaneou s pen injector active Not Available Not Available Not Available Vitals Date Recorded Body height Body mass index (BMI) Body weight Provider Name and Address Organization Details Last Updated DateTime 04/02/2024 175.26 cm 44 kg/m2 797608.53 g Erika [facility] 04/02/2024 15:38:37 Date Recorded Body height Body mass index (BMI) Body weight Heart rate Respiratory rate Oxygen saturation Oxygen saturation in Arterial blood by Pulse oximetry Provider Name and Address Organization Details Last Updated DateTime 4 175.26 cm 44 kg/m2 109743. 53 g 89 /min 14 /min 99 % 99 % Erika [facility] 4 15:47:07 Date Recorded Body height Body mass index (BMI) Body weight Heart rate Respiratory rate Oxygen saturation Oxygen saturation in Arterial blood by Pulse oximetry Systolic blood pressure Diastolic blood pressure Provider Name and Address Organization Details Last Updated DateTime 175.26 cm 44 kg/m2 052148. 53 g 79 /min 14 /min 98 % 98 % 134 mm[Hg] 72 mm[Hg] Erika [facility] 15:22:57 Date Recorded Body height Body mass index (BMI) Body weight Body temperature Provider Name and Address Organization Details Last Updated DateTime 08/29/2024 175.26 cm 42.9 kg/m2 070056.66 g 97.5 [degF] Emely Diaz CNA [facility] [employer] 08/29/2024 15:35:34 Date Recorded Body height Body mass index (BMI) Body weight Body temperature Provider Name and Address Organization Details Last Updated DateTime 09/17/2024 175.26 cm 42.5 kg/m2 713597.6 g 97.3 [degF] Bárbara Desouza RN [facility] 09/17/2024 10:49:30 Social History Question Answer Notes LastModified by Organizat ion Details LastModified Time Tobacco Smoking Status Never Smoker Hoda Acosta, JOHNNIE L null, [facility] 10/15/2022 09:20:12 What Is Your Level Of Alcohol Consumption? Occasional [email or web address] Information not available 08/29/2024 Sex: Unknown Functional Status None recorded. Mental Status None recorded. Family History Relationship Description Onset Age of this Age Resolved Age Notes LastModified by Organization Details LastModified Time Mother Family history of stroke [email or web address] Not available 10/2024 15:18:16 Father Family history of malignant neoplasm [email or web address] Not available 10/2024 15:18:16 Father Arthritis [email or web address] Not avail able 08/29/2024 15:18:16 Maternal Grandmother Diabetes mellitus [email or web address] Not available 09/26 09:19:58 Maternal Grandmother Arthritis Not available 08/29/2024 15:18:16 Paternal Grandmother Diabetes mellitus [email or web address] Not available 09/26 09:19:58 Notes:son deviated septum st [facility] - mother & grandmother, cancer - father, osteoporosis - grandmother Medical History Condition Response ARTHRITIS Y DIABETES, TYPE Y OBESITY Y BACK / NECK PROBLEMS Y HYPERTENSION Y Past Encounters Encounter ID Performer Location Encounter Start Date Encounter Closed Date Diagnosis/Indication Diagnosis SNOMED-CT Code Diagnosis ICD10 Code Diagnosis Note [id number] _ATHENA_M IGRATION_ DEFAULT_1 _1 , 11/03/2020 00:00:00 11/03/2020 16:51:59 [id number] [facility] [place] [address] [facility], [facility] [address] [place] [address] 01/13/2021 00:00:00 01/13/2021 11:22:24 [id number] Nicolasa Arias NP [facility] [place] [address] [place] [address] 10/15/2022 09:04:20 10/15/2022 09:55:30 Pain of right knee joint 9877166112 62548 M25.561 [id number] Nicolasa Arias NP [facility] [place] [address] [place] [address] 11/24/2022 10:11:52 11/24/2022 10:44:54 Pain of right knee joint 1685808404 22738 M25.848 [id number] Og Valenzuela MD [facility] [place] [address] [place] [address] 02/23/2023 11:08:11 02/23/2023 11:46:40 Pain of left knee joint 1976639282 78467 M25.562 Pain of ri ght knee joint 5274998565 37217 M25.561 Bilateral osteoarthritis of knees 3491625773 79817 M17.0 [id number] Og Valenzuela MD [facility] [place] [address] [place] [address] 11/09/2023 10:01:09 11/09/2023 11:24:17 Bilateral osteoarthritis of knees 1199522290 03196 M17.0 [id number] Varun Nelson DPM [facility] [place] [address] [place] [address] 04/02/2024 15:25:55 04/03/2024 11:48:50 Pain of left heel 2276069484 947143 M79.672 as below Plantar fa sciitis of left foot 4438105920 0129995 M72.2 discussed optionsrec ommend supportive shoe gear and stretching NSAIDs over-the-c ounterrece ntly obtained steroid injection left heelfollow -up in June for surgery clearance [id number] Varun Nelson DPM [facility] [place] [address] [facility], [facility] [address] [place] [address] 05/03/2024 15:31:03 06/22/2024 11:23:33 Plantar fasciitis of left foot 6554413644 3476455 M72.2 discussed optionsinj ection todayrecom mend supportive shoe gear and stretching NSAIDs over-the-c ountertoda y injection- left heelfollow -up in June for surgery clearance- EPF left foot if not resolved [id number] Varun Nelson DPM [facility] [place] [address] [place] [address] 07/05/2024 15:15:37 07/10/2024 15:26:59 Plantar fasciitis of left foot 9704467825 6562000 M72.2 discussed optionsRes olvedrecom mend supportive shoe gear and stretching if continues to redevelop chronic pain then would recommend HPF procedure to the left foot patient would need clearance prior to this procedure [id number] MARIA ISABEL Peres [facility] [place] [address] [place] [address] 08/29/2024 15:18:03 08/29/2024 16:04:20 Chronic sinusitis 48135412 J32.9 [id number] Romeo Kaur MD [facility] [place] [address] [place] [address] 09/17/2024 10:46:06 09/19/2024 15:22:11 Deviated nasal septum 188832946 J34.2 Health Concerns Section Related Observation LastModified by Organization Detai ls LastModified Time None Recorded Concern Status LastModified by Organization Details LastModified Time None Recorded Advance Directives Directive None Recorded Payers Encounter Date Sequence Insurance Name Policy Number Policy Marcum Covered Member ID Marcum Member ID Guarantor Name 04/02/[address] [facility] [id number] Taisha L Foster [id number] Oc Foster 05/03/[address] [facility] [id number] Taisha L Foster [id number] Oc Foster 07/05/[address] [facility] [id number] Taisha L Foster [id number] Oc Foster 08/29/[address] [facility] [id number] Taisha L Foster [id number] Oc Foster 09/17/[address] [facility] [id number] Taisha L Foster [id number] cO Foster Notes Date Note Type Note Provider Name and Address Organization Details Recorded Time 04/02/2024 text/html . Patient is a 59-year-old male who presents the office with complaints of left foot pain. 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 Patient states he was scheduled to return for a injection next week. I did explain that if the pain has resolved then he should refrain from obtaining a 2nd injection so close to 1 another. Patient states understanding. patient will return for surgery in June for endoscopic plantar fasciotomy. Varun Nelson DPM [address], [facility] [address], [place], [address], [facility] [employer] 04/02/2024 16:33:05/03/2024 text/html . Patient is a 59-year-old male he returns for plantar fasciitis of the left foot he states that he has had some improvement states that he mainly has pain when he is standing and walking. Patient denies any signs of infection or injury to the area. Patient denies any other complaints. Varun Nelson DPM [address], [address], [place], [address], [employer] 05/09/2024 17:47:21 07/05/2024 text/html . Patient is a 59-year-old male who returns the office for follow-up on plantar fasciitis. Patient has had chronic plantar fasciitis of the left foot to which he returned for follow-up on 05-03-24 which he underwent a steroid injection patient states since the last injection on 05/03 he has no longer had any pain to the foot. Patient denies any signs of infection to the area. Patient continues supportive shoe gear. Patient has been to physical therapy as well as stretching and icing at home as well as good shoe gear with minimal relief. Patient denies any other complaints. Varun Nelson DPM [address], [place], [address], [employer] 07/05/2024 15:45:31 08/29/2024 text/html this patient has a past medical history significant for diabetes, obesity, degenerative joint disease, and plantar fasciitis who presents to the office for persistent nasal congestion, PND, sinus pressure, and cough that has been present for years. He states that he is often treated for a sinus infection approximately 3-4 times annually. He has used mxvt-[id number] antihistamine and Flonase nasal sprays without symptom relief. He has not been on any recent antibiotics and/or steroids. He has not had any recent imaging. MARIA ISABEL Peres [address], [address], [place], [address], [employer] [facility] [employer] 08/29/2024 16:03:53 09/17/2024 text/html this patient reports nasal congestion and had a CT. This reveals mild mucosal thickening but a deviated septum. Romeo Kaur MD [address], [address], [place], [address], [place] - [facility] 09/17/2024 11:06:18
--- OUTSIDE RECORDS SUMMARY | 2024-09-30 11:46 | XMS_ITS | Clinical Summary ---
Author Organization [facility] Address [address] [place] [id number] Care Team Providers Care Field Hand Name Role Phone Unavailable Primary Care Provider Unavailabl e Social History Tobacco Use Types Packs/Day Years Used Date Smoking Tobacco: Never Assessed Sex and Gender Information Value Date Recorded Sex Assigned at Not on file Legal Sex Male 4:22 PM CDT Gender Identity Not on file Sexual Orientation Not on file Plan of Treatment Health Maintenance Due Date Last Done Comments Colorectal Cancer Screening Colonoscopy (10 Years) 1965 Annual Physical 1968 Hepatitis C 1983 DTaP, Tdap and Td Vaccines ( 1 - Tdap) 1984 Zoster Vaccines (1 of 2) 2015 COVID-19 Vaccine (1 - 2023-2 5 season) 2024 Meningococcal B Vaccine Aged Out No l onger eligible based on patient's age to complete this topic Meningococcal Vaccine Aged Out No nicole eunice eligible based on patient's age to complete this topic Pneumococcal Vaccine: Pediat rics (0 to 5 Years) and At-Risk Patients (6 to 64 Years) Aged Out No longer eligible b ased on patient's age to complete this topic RSV Immunizations Under 20 Months Aged Out No longer eligible based on patient's age to complete this topic
--- OUTSIDE RECORDS SUMMARY | 2024-09-30 11:46 | XMS_ITS | Referral Summary ---
Author Organization [facility] Address [address] [place] [address] Care Team Providers Care Claims Collector Name Role Phone Duran Montero MD Primary Care Provider [phone] Allergies Active Allergy Reactions Criticality Noted Date Comments Dapagliflozin Other (See comments) Medium 10/21/2018 Mycotic infection Penicillins Other (See comments) Low rash Medications latanoprost (XALATAN) 0.005 % ophthalmic solutionIndication s:glaucoma prevention Administer 1 drop into both eyes nightly 10/04/19 19 Active valsartan-hydrochl orothiazide (DIOVAN-HCT) 160-25 mg per tabletIndications: hypertension Take 1 tablet by mouth every morning Active timolol (TIMOPTIC) 0.25 % ophthalmic solution Administer 1 drop into both eyes daily 12/14/19 23 Active celecoxib (CeleBREX) 200 mg capsule 03/11/20 23 Active SEMGLEE-yfgn 100 unit/mL (3 mL) pen for injection INJECT 80 UNITS UNDER THE SKIN DAILY 75 mL 3 07/21/19 24 Active metFORMIN XR (GLUCOPHAGE XR) 500 mg 24 hr tabletIndications: Type 2 diabetes mellitus with hyperglycemia, with long-term current use of insulin (HCC) TAKE 2 TABLETS TWICE A DAY 360 tablet 3 09/27/19 24 Active gabapentin (NEURONTIN) 300 mg capsule Take 1 capsule (300 mg total) by mouth 3 (three) times a day 270 capsule 2 10/20/19 24 025 Active Additional Information Patient not taking.Reported on 04/06/2024 FreeStyle Treasure 2 Sensor kitIndications:Typ e 2 diabetes mellitus with hyperglycemia, with long-term current use of insulin ([facility]) CHANGE SENSOR EVERY 14 DAYS 6 kit 3 11/22/19 24 Active nortriptyline (PAMELOR) 25 mg capsuleIndications :Diabetic polyneuropathy associated with type 2 diabetes mellitus (HCC) TAKE 1 CAPSULE NIGHTLY 90 capsule 3 03/29/20 Active Additional Information Patient not taking.Reported on 04/06/2024 etodolac (LODINE) 400 mg tablet TAKE 1 TABLET BY MOUTH EVERY DAY TAKE BEFORE PLAYING SPORTS AND TAKE WITH FOOD 01/17/20 Active fluticasone propionate (FLONASE) 50 mcg/actuation nasal spray SHAKE LIQUID AND USE 2 SPRAYS IN EACH NOSTRIL DAILY NEEDED FOR NASAL CONGESTION 01/17/20 Active semaglutide (OZEMPIC) 2 mg/dose (8 mg/3 mL) pen injector injectionIndicatio ns:Type 2 diabetes mellitus with hyperglycemia, with long-term current use of insulin ([facility]) Inject 2 mg under the skin every 7 days 9 mL 3 05/22/20 24 Active pen needle, diabetic (BD Ultra-Fine Short Pen Needle) 31 gauge x 5/16 needleIndications: Type 2 diabetes mellitus with hyperglycemia, with long-term current use of insulin ([facility]) Inject 1 each under the skin 4 (four) times a day before meals and nightly Use to take insulin 4 x day. 400 each 3 06/22/20 24 Active HumaLOG 100 unit/mL pen for injection INJECT 20 TO 30 UNITS UNDER THE SKIN TWICE A DAY BEFORE BREAKFAST AND DINNER (MAXIMUM DAILY DOSE 60 UNITS) 60 mL 3 08/16/19 25 Active glimepiride (AMARYL) 2 mg tabletIndications: Type 2 diabetes mellitus with hyperglycemia, with long-term current use of insulin ([facility]) TAKE 1 TABLET DAILY BEFORE BREAKFAST 90 tablet 3 08/16/19 25 Active atorvastatin (LIPITOR) 20 mg tablet TAKE 1 TABLET DAILY 90 tablet 3 08/16/19 25 Active LANTUS 100 unit/mL (3 mL) pen for injectionIndicatio ns:Type 2 diabetes mellitus with hyperglycemia, with long-term current use of insulin ([facility]) INJECT 80 UNITS UNDER THE SKIN NIGHTLY 45 mL 5 12/30/ 023 Discontin ued(Alter misty therapy) Active Problems Problem Noted Date Diagnosed Date Class 3 severe obesity due t o excess calories with serious comorbidity and body mass index (BMI) of 40.0 to 44.9 in adult 09/16/2022 Assessment & Plan (10/20/2023 10:26 AM CDT): Diet and exercise Start Phentermine Assessment & Plan (05/06/2023 9:22 AM PROFESSIONAL ATHLETE): Start phentermine Diet and exercise Assessment & Plan (09/16/2022 11:32 AM CDT): Chronic problem. Discussed healthy diet and importance of regular physical activity (20- 30min/day, 150min/wk). SRI on CPAP 05/07/2021 Primary osteoarthritis of left shoulder 04/14/20 21 Overview (04/14/2021): Added automatically from request for surgery [id number] Diabetic polyneuropathy asso ciated with type 2 diabetes mellitus 04/06/2021 Assessment & Plan (04/06/2024 9:43 AM CDT): Chronic problem. Currently taking Gabapentin 300mg prn. Reviewed foot care; needs to lotion daily. Aware to check feet nightly, not to go barefoot. Assessment & Plan (10/20/2023 10:26 AM CDT): Foot care discussed Start Gabapentin Assessment & Plan (01/13/2023 10:12 AM CDT): Chronic problem. Instructed to check feet nightly, keep moisturized & avoid going barefoot. Assessment & Plan (04/06/2021 1:03 PM CDT): Foot care was discussed with the patient Will start nortriptyline Trochanteric bursitis of left hip 05/07/2020 DDD (degenerative disc disease), lumbar 03/11/20 20 Degenerative lumbar spinal stenosis 03/11/2020 Chronic left-sided low back pain without sciatic a 03/11/2020 Insomnia secondary to chronic pain 03/11/2020 Contusion of knee 02/04/2020 Aftercare following other surgery of musculoskel etal system 02/04/2020 Other and unspecified derangement of medial meni scus 02/04/2020 Other chronic pain 02/04/2020 Pain in left shoulder 02/04/2020 Presence of left artificial hip joint 02/04/2020 Primary localized osteoarthrosis, lower leg 01/25 Lumbar radiculopathy 02/04/2020 Ankle pain 09/13/2019 Osteoarthritis of ankle or foot 08/09/2019 Lumbar spondylosis with radiculopathy 07/02/2019 Plantar fasciitis of left foot 06/26/2018 Arthritis 06/12/2018 Hyperlipidemia associated with type 2 diabetes cornel jenkins 06/06/2018 Assessment & Plan (04/06/2024 9:02 AM CDT): Chronic problem, controlled on current Atovastatin 20mg. Last lipid panel: 01/13/23 LDL=93, VL=517. No changes at this time. Will update lipid panel today. Verified that he uses [employer] Aware to check results/results letter in [employer]. Will contact by phone if needed. Assessment & Plan (01/13/2023 10:12 AM CDT): Chronic problem, controlled on current Atovastatin 20mg. Last lipid panel: 01/13/22 LDL=80, TG=95. No changes at this time. Will update lipid panel today. Verified that he uses [employer] to check results/results letter in [employer]. Will contact by phone if needed. Assessment & Plan (09/16/2022 11:34 AM CDT): Chronic problem, controlled on current Atovastatin 20mg. Last lipid panel: 01/13/22 LDL=80, TG=95. No changes at this time. Assessment & Plan (05/13/2022 10:18 AM PROFESSIONAL ATHLETE): Chronic problem. On statin therapy, no changes. Assessment & Plan (01/13/2022 9:39 AM CDT): Chronic, well controlled Low fat Low cholesterol diet Exercise Continue statin therapy Check lipid profile Assessment & Plan (08/17/2021 4:39 PM PROFESSIONAL ATHLETE): Chronic, well controlled Continue current meds Assessment & Plan (12/21/2019 10:56 AM CDT): At goal on current medications. Continue statin therapy. Assessment & Plan (09/13/2019 2:22 PM CDT): At goal on current medications. Continue statin therapy. Assessment & Plan (05/10/2019 4:20 PM PROFESSIONAL ATHLETE): Goal of treatment , LDL cholesterol less than 100 ( less than 70 in patients with history of heart attacks and / or strokes ) NonHDL cholesterol ( total cholesterol minus HDL cholesterol ) goal less than 130 ( less than 100 in patients with history of heart attacks and / or strokes ) Low cholesterol, low fat diet was discussed and advised. Daily exercise On statin therapy Assessment & Plan (02/06/2019 3:14 PM CDT): Needs to have lipid panel done Assessment & Plan (10/21/2018 9:03 PM CDT): Check lipid panel Assessment & Plan (06/06/2018 2:28 PM PROFESSIONAL ATHLETE): Goal of treatment , LDL cholesterol less than 100 ( less than 70 in patients with history of heart attacks and / or strokes ) NonHDL cholesterol ( total cholesterol minus HDL cholesterol ) goal less than 130 ( less than 100 in patients with history of heart attacks and / or strokes ) Low cholesterol, low fat diet was discussed and advised. Daily exercise On statin therapy Dietary counseling and surveillance 01/25/2014 Hypertension associated with diabetes 11/10/2013 Overview (09/29/2016): HYPERTENSION NOS Assessment & Plan (04/06/2024 9:02 AM CDT): Chronic problem, controlled on current valsartan-hctz 160-25mg daily. No changes at this time. Will update labs today. Verified that he uses [employer] Aware to check results/results letter in mychart. Will contact by phone if needed. Assessment & Plan (01/13/2023 10:08 AM CDT): Chronic problem, controlled on current valsartan-hctz 160-25mg daily. No changes at this time. Will update labs today. Verified that he uses mychart. Aware to check results/results letter in mychart. Will contact by phone if needed. Assessment & Plan (09/16/2022 11:32 AM CDT): Chronic problem, controlled on current valsartan-hctz 160-25mg daily. No changes at this time. Assessment & Plan (05/13/2022 10:18 AM PROFESSIONAL ATHLETE): Controlled on current medications, no changes. Assessment & Plan (01/13/2022 9:40 AM CDT): Chronic, well controlled Continue current meds Check MA Assessment & Plan (12/21/2019 10:55 AM CDT): Controlled on current medications. Continue plan. Assessment & Plan (09/13/2019 2:22 PM CDT): Controlled on current medications. Continue plan. Assessment & Plan (05/10/2019 4:19 PM PROFESSIONAL ATHLETE): Goal blood pressure is less than 140/85 Low salt diet recommended Daily aerobic exercise Continue current meds, including NICHOLE-I or ARB Check microalbumin Assessment & Plan (02/06/2019 3:15 PM CDT): Controlled on current medications. Assessment & Plan (10/21/2018 9:02 PM CDT): At goal on current medications. Assessment & Plan (06/06/2018 2:28 PM PROFESSIONAL ATHLETE): Goal blood pressure is less than 140/85 Low salt diet recommended Daily aerobic exercise Continue current meds, including NICHOLE-I or ARB Assessment & Plan (12/22/2017 10:39 AM CDT): Controlled on current medications. Assessment & Plan (09/21/2017 2:12 PM CDT): Controlled on current medications. Assessment & Plan (06/21/2017 11:48 AM PROFESSIONAL ATHLETE): Goal blood pressure is less than 140/85 Low salt diet recommended Daily aerobic exercise Continue current meds, including NICHOLE-I or ARB Nontoxic uninodular goiter 11/10/2013 Overview (09/29/2016): NONTOX UNINODULAR GOITER Assessment & Plan (09/02/2020 4:22 PM PROFESSIONAL ATHLETE): Thyroid ultrasound performed today Right lower thyroid nodule, without significant changes in size Assessment & Plan (02/06/2019 3:15 PM CDT): Will obtain records from [facility]. Left side of face swelling present, tender. Advise that he follow up again with PCP. Type 2 diabetes mellitus wit h hyperglycemia, with long-term current use of insulin 11/10/2013 Overview (10/02/2016): DMII WO CMP UNCNTRLD Assessment & Plan (04/06/2024 9:50 AM CDT): Chronic problem. Uncontrolled & A1c worsening from 7.9% 10/20/23 to now 8.7%. has been missing insulin as he's been working more. Discussed packing small cooler to take with him to school & his second job. Current medications: Metformin XR 1000mg twice daily before meals Glimepiride 2 mg every morning Ozempic 2mg weekly Semglee 60-80 units every evening Humalog 20-30 units with meals twice daily (breakfast & dinner) Will update labs today. Verified that he uses mychart. Aware to check results/results letter in [employer]. Will contact by phone if needed. UTD on DM eye exam (01/17/24 mild NPDR [address] DME [facility]) Strive for regular exercise (30min most days) and diet (get at least 4-5 servings of fruit and veggies daily, avoid processed foods, increase lean protein intake and decrease carb portions as well as fruit juices, regular soda & desserts). Watch carbs and simple sugars. Check blood sugars: Freestyle treasure 2. Check the feet daily for skin breakdown and infection. Assessment & Plan (10/20/2023 10:25 AM CDT): Chronic, not at goal Diet and exercise were discussed Continue Ozempic, Metformin , Glimeperide, Semglee and Humalog Assessment & Plan (05/06/2023 9:22 AM PROFESSIONAL ATHLETE): Hba1c was Lab Results Component Value Date HGBA1C 8.7 05/06/2023 today, indicating inadequate , worsening DM control Goal Hba1c and blood glucose explained Diet and exercise were advised Importance of portion control, small meals was discussed; more lean protein and vegetables Prevention and treatment of hyypoglcyemia were discussed with the patient Blood glucose monitoring : FSL cgm Adjustment to medications: Pt wants to try Mounjaro Stop Ozempic Start Mounjaro ( if it is not covered, will have to stay on ozempic ) Continue current insulin regimen Assessment & Plan (01/13/2023 10:11 AM CDT): Chronic problem. Uncontrolled & A1c worsening. A1c 7.8% 08/2022 & now 8.1%. Current medications: Metformin 1000mg twice daily-taking differently 500mg daily mostly. Glimepiride 2 mg every morning Ozempic 2mg weekly Semglee 50-60 units every evening typically (but up to 80 if high) Humalog 15-20 units with meals twice daily Increase metformin back to 1000mg twice daily. Watch over correction & causing low sugars. (Has been trying to cut Metformin out). Reviewed elevated A1c/BS readings & need for metformin. Will update labs today. Verified that he uses mychart. Aware to check results/results letter in [employer]. Will contact by phone if needed. DM eye exam yesterday. Letter sent to Dr Douglas's office to get copy of report. Strive for regular exercise (30min most days) and diet (get at least 4-5 servings of fruit and veggies daily, avoid processed foods, increase lean protein intake and decrease carb portions as well as fruit juices, regular soda & desserts). Watch carbs and simple sugars. Check the feet daily for skin breakdown and infection. Assessment & Plan (09/16/2022 11:22 AM CDT): Current medications: Metformin 1000mg twice daily-taking differently 500mg bid mostly. Glimepiride 2 mg every morning Ozempic 2mg weekly Semglee 50-60 units every evening typically (but up to 80 if high) Humalog 15-20 units with meals twice daily Increase metformin back to 1000mg twice daily. Watch over correction & causing low sugars. Assessment & Plan (05/13/2022 10:20 AM PROFESSIONAL ATHLETE): Chronic problem, stable per Treasure download. We discussed weight loss, will try increasing Ozempic. We had samples of 1 mg dose so I gave him this to use for 1 month, then increase to 2 mg (rx sent in). Reviewed how to continue adjusting his bolus insulin especially as needed to prevent lows. Increase metformin back up to 1 gm BID. Assessment & Plan (01/13/2022 4:23 PM CDT): Hba1c was Lab Results Component Value Date HGBA1C 7.7 01/13/2022 today, indicating suboptimal DM control Goal Hba1c and blood glucose explained Diet and exercise were advised Prevention and treatment of hyypoglcyemia were discussed with the patient Blood glucose monitoring : continue FSL ; pt to download bruce and install it to his phone Adjustment to medications: Continue current medication, emphasizing to the patient the need to continue working on diet and exercise. More consistent eating times were also advised to prevent hypoglycemia Assessment & Plan (08/17/2021 4:38 PM PROFESSIONAL ATHLETE): Hba1c was Lab Results Component Value Date HGBA1C 8.9 08/17/2021 today, indicating inadequate, worsening DM control Goal Hba1c and blood glucose explained Diet and exercise were advised Prevention and treatment of hyypoglcyemia were discussed with the patient Blood glucose monitoring : Continue with freestyle Lite Adjustment to medications: Restart glimepiride Hold Bydureon Start Ozempic, which could help better with weight loss Patient to call in a few weeks to see how he is tolerating the Ozempic Assessment & Plan (04/06/2021 1:01 PM CDT): Hba1c was Lab Results Component Value Date HGBA1C 8.1 04/06/2021 today, indicating inadequate DM control Goal blood glucose levels : 90-120 Target Hba1c : 7 % BG monitoring : ac and hs Prevention and treatment of hyypoglcyemia discussed. Insulin regimen adjustments: Continue current regimen with Lantus and Humalog Continue Bydureon Oral medication adjustments: Stop glimepiride Continue metformin Assessment & Plan (01/01/2021 2:02 PM CDT): Hba1c was Lab Results Component Value Date HGBA1C 9.5 (A) 01/01/2021 today, indicating very poor DM control Goal blood sugars in the 120-150 range , with Hb1c under 7.0 % was explained 1800 calorie, consistent carb diet recommended. No more than 30-45 grams of carbs per meal recommended, as well as avoiding high concentrated sweet drinks . 25-45 min daily exercise, combining both aerobic and resistance exercise recommended. The need to monitor blood glucose before meals and bedtime was discussed. Prevention and treatment of hyypoglcyemia discussed. Start CGM with Freestyle Treasure Increase Lantus to 80 units at bedtime Take Humalog, 30 units with each meal For sugars over 200, take 35 units For sugars over 300, take 40 units Stay On Bydureon and Metformin Assessment & Plan (09/02/2020 4:21 PM PROFESSIONAL ATHLETE): Hba1c was Lab Results Component Value Date HGBA1C 7.7 09/02/2020 today, indicating suboptimal DM control Goal blood sugars in the 120-150 range , with Hb1c under 7.0 % was explained 1800 calorie, consistent carb diet recommended. No more than 30-45 grams of carbs per meal recommended, as well as avoiding high concentrated sweet drinks . 25-45 min daily exercise, combining both aerobic and resistance exercise recommended. The need to monitor blood glucose before meals and bedtime was discussed. Prevention and treatment of hyypoglcyemia discussed. No changes in medication The patient should focus on diet and exercise Assessment & Plan (12/21/2019 10:59 AM CDT): A1c 7.5. Continue with same medications. Check BG daily. BG goals reviewed. Assessment & Plan (09/13/2019 2:23 PM CDT): A1c improved, likely d/t to more focused effort on diet. Advised to decrease Novolog ac prior to planned exercise. Otherwise continue current medication. Schedule dilated eye exam. Assessment & Plan (05/10/2019 4:19 PM PROFESSIONAL ATHLETE): Hba1c was Lab Results Component Value Date HGBA1C 8.2 % 05/10/2019 today, indicating inadequate DM control 1800 calorie, consistent carb diet recommended. No more than 30-45 grams of carbs per meal recommended, as well as avoiding high concentrated sweet drinks . 25-45 min daily exercise, combining both aerobic and resistance exercise recommended. The need to monitor blood glucose before meals and bedtime was discussed. Prevention and treatment of hyypoglcyemia discussed. Insulin dose: Continue current regimen, including Bydureon, Lantus and Humalog Patient needs an eye exam Assessment & Plan (02/06/2019 3:17 PM CDT): A1c 7.5 which is actually improved since MAGEN, considering recent issues. Have asked that he send in BG log so that actual pattern can be assessed. Will consider adjusting medication based on results. Assessment & Plan (10/21/2018 9:04 PM CDT): A1c 7.8. Reports FBG > 200. Increase Lantus increase to 53 units hs and adjust weekly by 2 units to fasting goal. Needs to resume focus on diet and exercise. Assessment & Plan (06/06/2018 2:39 PM PROFESSIONAL ATHLETE): Hba1c was Lab Results Component Value Date HGBA1C 7.6 06/06/2018 today, indicating sub-optimal DM control 1800 calorie, consistent carb diet recommended 25-45 min daily exercise, combining both aerobic and resistance exercise recommended. The need to monitor blood glucose before meals and bedtime was discussed. Dose of basal and prandial insulin adjusted as follows: Continue current regimen Restart Bydureon Lower Lantus by 10 u every few days if BG start running under 100. Prevention and treatment of hyypoglcyemia discussed. Assessment & Plan (12/22/2017 10:38 AM CDT): A1c 6.2 however FBG now consistently >140-180. Advised to resume Metformin bid. Continue to check BG will consider adding other medications based on response. He is reluctant to do this. Feels he should be able to control BG with diet however agrees to restart metformin. BG goals reviewed. Assessment & Plan (09/21/2017 2:00 PM CDT): A1c 7.2. No signs of Hypoglycemia. Continue same medication plan. Continue with exercise and monitoring diet. Would advise to check BG more often for accountability. Assessment & Plan (06/21/2017 2:06 PM PROFESSIONAL ATHLETE): Your Hba1c today was: 9.7 meaning a 3 month average sugar of : 237 Your goal hba1c is under 7.0 to prevent care home diabetes complications ( eye , kidney and nerve damage ) . Your goal sugars are in the 90-130 range Daily aerobic ( walking, riding a bike, swimming ) and resistance exercises ( light weight lifting, resistance band stretching ) for at least 30 minutes is recommended If you can not walk, chair exercises is very acceptable. As little as 15-20 min daily exercise , in one or two sessions a day is still very helpful . Eat small portion meals, no more than 1800 calories Diet Try to eat not more than than 2-3 servings of carbs ( starches ) wiith your meals. Avoid soft drinks, including regular sodas , fruit juices and sweetened tea. Drink water instead. Eat plenty of green and leafy vegetables, including salads. Take your medications regularly,including your insulin injections. Monitor your sugar levels with finger sticks Regularly and keep a log sheet or book. Bring your sugar meter and /or a log book or sheet to every office visit. Increase to 50 units at bedtme Increase Humalog, to 20 units with each meal Start Bydureon once a week. Pain in soft tissues of limb 03/12/2013 Resolved Problems Problem Noted Date Diagnosed Date Resolved Date Morbid (severe) obesity due to excess calories 01/13/2022 09/16/2022 Body mass index 40.0-44.9, adult ([facility]) 01/13/2022 09/16/2022 Hyperlipidemia 09/21/2017 09/16/2022 Assessment & Plan (12/22/2017 10:39 AM CDT): LDL at goal on current dose of statin Assessment & Plan (09/21/2017 2:11 PM CDT): Continue statin therapy BMI 40.0-44.9, adult 06/21/2017 023 Assessment & Plan (09/02/2020 4:22 PM PROFESSIONAL ATHLETE): Patient refusing the consideration for bariatric surgery Phentermine was started because elevated blood pressure Will try Wellbutrin Assessment & Plan (09/13/2019 2:22 PM CDT): Importance of following diet and exercising discussed. Assessment & Plan (02/06/2019 3:14 PM CDT): Recommend he try keto diet again Assessment & Plan (12/22/2017 10:39 AM CDT): Ketogenic diet reviewed Morbid obesity ([facility]) 06/21/2017 Assessment & Plan (04/06/2021 1:02 PM CDT): Worsening Low calorie diet discussed Start phentermine Assessment & Plan (12/21/2019 10:57 AM CDT): Continues to lose wt with focus on steady caloric intake , intermittent fasting, phentermine. Assessment & Plan (05/10/2019 4:18 PM PROFESSIONAL ATHLETE): Diet and exercise were discussed. 1200 Calorie diet advised 45-60 min aerobic / resistance exercise most days of the week recommended. Start Phentermine Bariatric surgery medically indicated . Pt seems to agreed Referral sent to [facility] bariatric center. Assessment & Plan (10/21/2018 9:02 PM CDT): Importance of following diet and exercising discussed. Assessment & Plan (09/21/2017 2:12 PM CDT): Importance of following diet and exercising discussed. Social History Tobacco Use Types Packs/Day Years Used Date Smoking Tobacco: Never Smokeless Tobacco: Never Alcohol Use Standard Drinks/Week Comments Yes 6 (1 standard drink = 0.6 oz pur e alcohol) AUDIT-C Answer Date Recorded Q1: How often do you have a drink containing alc ohol? 2-4 times a month 05/13/2021 Q2: How many drinks containi ng alcohol do you have on a typical day when you are drinking? 1 or 2 05/13/2021 Q3: How often do you have si x or more drinks on one occasion? Never 05/13/2021 PHQ-2 Answer Date Recorded PHQ-2 Total Score (If total score is 3 or more points, staff should administer the PHQ-9) 0 01/13/2023 Sex and Gender Information Value Date Recorded Sex Assigned at Not on file Legal Sex Male 8:47 PM PROFESSIONAL ATHLETE Gender Identity Male 12/29/2020 10:31 AM CDT Sexual Orientation Straight 12/29/2020 10 :31 AM CDT Last Filed Vital Signs Vital Sign Reading Time Taken Comments Blood Pressure 122/84 04/06/2024 8:56 AM CDT Pulse 76 04/06/2024 8:56 AM CDT Temperature 36.8 C (98.2 F) 05/14/2021 8:14 AM PROFESSIONAL ATHLETE Respiratory Rate 18 04/06/2024 8:56 AM CDT Oxygen Saturation 95% 05/14/2021 8:14 AM PROFESSIONAL ATHLETE Inhaled Oxygen Concentration - - Weight 131.5 kg (290 lb) 04/06/2024 8:56 AM CDT Height 172.7 cm (5' 7.99 ) 04/06/2024 8:56 AM CD T Body Mass Index 44.1 04/06/2024 8:56 AM CDT Plan of Treatment Not on file Goals Goal Patient Goal Type Associated Problems Recent Progress Patient-Stated? Author BH-Pain Behavioral Health Improving(04/2020 12:07 PM PROFESSIONAL ATHLETE) No Mariana Berg, RN Note: Patient will establish a comfort-function goal and identify the pain level that will allow the patient to perform desired activities and achieve an acceptable quality of life. Medical Devices Implanted Type Area Perinatal Nurse Device Identifier Shelf Expiration Date Model / Serial / Lot [employer] 6191-1-010 Simplex P Radiopaque Full Dose Cement Bone Sterile - Sna - [id number] Implanted:Qty: 1 on 05/13/2021 by Harinder Orosco MD at [facility] Bone Cement Left: Shoulder [employer] 05/26/2023 6191-1-0 10 / NA / [id number] [employer] [id number] Aequalis Perform Cortiloc 60mm Peg Shoulder Large Component Latex Free - [id number] - [id number] Implanted:Qty: 1 on 05/13/2021 by Harinder Orosco MD at [facility] Other - see comments Left: Shoulder [employer] [id number] 08/13/2025 [id number] / [id number] / [employer] [id number] Head Perform Cocr Modular Humeral - [id number] - [id number] Implanted:Qty: 1 on 05/13/2021 by Harinder Orosco MD at [facility] Other - see comments Left: Shoulder [employer] [id number] 11/14/2025 [id number] / [id number] / [employer] [id number] Novelty Dipper Perform Centered Modular Humeral Head Ti - Sna - [id number] Implanted:Qty: 1 on 05/13/2021 by Harinder rOosco MD at [facility] Other - see comments Left: Shoulder [employer] [id number] 04/08/2026 [id number] / NA / [employer] [id number] Stem Perform Sz 3 Humeral - [id number] - [id number] Implanted:Qty: 1 on 05/13/2021 by Harinder Orosco MD at [facility] Other - see comments Left: Shoulder [employer] [id number] 09/18/2025 [id number] / [id number] / Lt Thr Hip Explanted Type Area Perinatal Nurse Device Identifier Shelf Expiration Date Model / Serial / Lot [employer] [id number] Guide Pin Perform 3.0 X 100mm - Sna - [id number] Explanted:Qty : 1 on 05/13/2021 by Harinder Orosco MD at [facility] Other - see comments Left: Shoulder [employer] [id number] / NA / Description:For fixation pur poses only. Not intended for implant. Procedures Procedure Name Priority Date/Time Associated Diagnosis Comments EGFR Routine 04/06/2024 9:50 AM CDT Type 2 diabetes mellitus with hyperglycemia, with long-term current use of insulin (HCC) Hypertension associated with diabetes (HCC) LIPID PANEL Routine 04/06/2024 9:50 AM CDT Type 2 diabetes mellitus with hyperglycemia, with long-term current use of insulin (HCC) Hyperlipidemia associated with type 2 diabetes mellitus (HCC) ALBUMIN CREATININE RATIO, URINE Routine 04/06/2024 9:50 AM CDT Type 2 diabetes mellitus with hyperglycemia, with long-term current use of insulin (HCC) POCT HEMOGLOBIN A1C Routine 04/06/2024 9 :05 AM CDT Type 2 diabetes mellitus with hyperglycemia, with long-term current use of insulin (HCC) HM DIABETES EYE EXAM Routine 01/17/2024 8:11 AM CDT DIABETIC FOOT EXAM Routine 12/12/2019 PSA SCREEN Routine 10/11/2017 11:35 AM CDT from Last 3 Months or Most Recently Relevant to Health Maintenance Results * eGFR (04/06/2024 9:50 AM CDT) eGFR 76 >=60 mL/min/1. 73 m2 Comment: Interpretive Data Reference Interval Normal >/= 90 mL/min/1.73m2 Mildly decreased* 60 - 89 mL/min/1.73m2 Mildly to moderately decreased 45 - 59 mL/min/1.73m2 Moderately to severely decreased 30 - 44 mL/min/1.73m2 Severely decreased 15 - 29 mL/min/1.73m2 Kidney Failure < 15 mL/min/1.73m2 *Relative to young adult level Estimated glomerular filtration rate is determined by the 2020 CKD-EPI equation recommended by the National Kidney Foundation (A Unifying Approach to GFR Estimation: Recommendations of the NKF-ASK Task Force on Reassessing the Inclusion of Race in Diagnosing Kidney Disease, JASN 2020). The CKD-EPI equation should not be used for patients with unstable renal function and has not been validated in children and those over 70. Current interpretive data was last reviewed 2021. Blood 04/06/2024 9:50 AM CDT 04/06/2024 2:53 PM CDT Haily Siddiqi NP LAB BLOOD ORDERABLES [facility] Result Performing Organization Address [facility] Co de Phone Number JOB REYES [id number] [place] [address] * Albumin Creatinine Ratio, Urine (04/06/2024 9:50 AM CDT) Albumin Ur 27.5 mg/L Comment: Interpretive Data No reference range established. Current interpretive data was last revised 2018. Creatinine Ur 240.8 mg/dL [facility] Comment: Interpretive Data No reference range established. Current interpretive data was last revised 2018. Albumin Creatinine Ratio, Ur 11 1 - 29 mg/g [facility] Urine 04/06/2024 9:50 AM CDT 04/06/2024 2:41 PM CDT us Haily Siddiqi NP LAB URINE ORDERABLES [facility] Result Performing Organization Address [facility]/ZIP Co de Phone Number JOB [address] [place] [address] * Lipid panel (04/06/2024 9:50 AM CDT) Cholesterol 153 30 - 199 mg/dL Comment: Interpretive Data Ages < or = 19 years Acceptable: <170 mg/dL Borderline high: 170-199 mg/dL High: >or= 200 mg/dL Ages > or = 20 years Desirable: <200 mg/dL Borderline high: 200-239 mg/dL High: >or= 240 mg/dL Literature References: 1. Expert Panel on Integrated Guidelines for Cardiovascular Health and Risk Reduction in Children and Adolescents. Pediatrics 2011;128:S213 2. NCEP Expert Panel. Circulation 2004;110:227 Current Interpretive Data was last revised on 2018. Triglycerides 84 <=149 mg/dL JOB Comment: Interpretive Data Ages < or = 9 years Acceptable: <75 mg/dL Borderline high: 75-99 mg/dL High: >or= 100 mg/dL Ages 10 to 20 years Acceptable: <90 mg/dL Borderline high: 90-129 mg/dL High: >or= 130 mg/dL Ages > or = 20 years Desirable: <150 mg/dL Borderline high: 150-199 mg/dL High: 200-499 mg/dL Very high: >or= 499 mg/dL Literature References: 1. Expert Panel on Integrated Guidelines for Cardiovascular Health and Risk Reduction in Children and Adolescents. Pediatrics 2011;128:S213 2. NCEP Expert Panel. Circulation 2004;110:227 Current Interpretive Data was last revised on 2018. HDL 46 >=40 mg/dL [facility] Comment: Interpretive Data Ages < or = 19 years Acceptable: >45 mg/dL Borderline low: 40-45 mg/dL Low: <40 mg/dL Ages > or = 20 years Desirable: >or= 60 mg/dL Low: <40 mg/dL Literature References: 1. Expert Panel on Integrated Guidelines for Cardiovascular Health and Risk Reduction in Children and Adolescents. Pediatrics 2011;128:S213 2. NCEP Expert Panel. Circulation 2004;110:227 Current Interpretive Data was last revised on 2018. LDL, calculated 91 <=129 mg/dL [facility] Comment: Interpretive Data Ages < or = 19 years Acceptable: <110 mg/dL Borderline high: 110-129 mg/dL High: >or= 130 mg/dL Ages > or = 20 years Optimal: <100 mg/dL Near optimal: 100-129 mg/dL Borderline high: 130-159 mg/dL High: >160 mg/dL Calculated using the Barrett LDL-C estimating equation. This equation was implemented on 2024. Prior to this date LDL-C was estimated using the Friedewald equation. Literature References: 1. Expert Panel on Integrated Guidelines for Cardiovascular Health and Risk Reduction in Children and Adolescents. Pediatrics 2011;128:S213 2. NCEP Expert Panel. Circulation 2004;110:227 3. Arnold Zavaleta et al. WALI Cardiol. 2019October 25;5(5):540-548. doi: 10.1001/jamacardio.2020.0013 Current Interpretive Data was last revised on 2024. Non-HDL Cholesterol 107 mg/dL JOB REYES Comment: Interpretive Data Ages < or = 19 years Acceptable: <120 mg/dL Borderline high: 120-144 mg/dL High: >145 mg/dL Ages > or = 20 years When triglycerides are >200 mg/dL, Non-HDL cholesterol is a secondary target of therapy with treatment goals that are 30 mg/dL greater than the LDL cholesterol target. Literature References: 1. Expert Panel on Integrated Guidelines for Cardiovascular Health and Risk Reduction in Children and Adolescents. Pediatrics 2011;128:S213 2. NCEP Expert Panel. Circulation 2004;110:227 Current Interpretive Data was last revised on 2018. Chol/HDL ratio 3 JOB Blood 04/06/2024 9:50 AM CDT 04/06/2024 2:41 PM CDT Haily Siddiqi NP LAB BLOOD ORDERABLES [place] Result JOB [id number] Department [place] [address] * (ABNORMAL) POCT hemoglobin A1c (04/06/2024 9:05 AM CDT) Hemoglobin A1C, POC 8.7 4.0 - 5.6 % Blood 04/06/2024 9:05 AM CDT Haily Siddiqi NP POINT OF CARE TEST ORDERA BLES Final Result * (ABNORMAL) DIABETES EYE EXAM (01/17/2024 8:11 AM CDT) us Historical Provider HEALTH MAINTENANCE Final Result * Diabetic Foot Exam (12/12/2019) Historical Provider HEALTH MAINTENANCE Final Result * PSA screen (10/11/2017 11:35 AM CDT) SCRIBED PSA, Serum 1.5 0.0 - 4.0 [facility] Blood specimen (specimen) Historical Provider LAB BLOOD ORDERABLES Edit ed Result - Final [facility] from Last 3 Months or Most Recently Relevant to [place] [address] [facility] [place] [address] [facility] CHO[facility] PLUS [facility] PLUS [facility] CHO[facility] PLUS Advance Directives For more information, please contact: [phone] * Full Code (Latest Code Status on File) Date Activated Date Inactivated Comments 05/13/2021 5:01 PM 05/14/2021 2:11 PM Care Teams Claims Collector Relationship Specialty Start Date End Date Duran Montero MD [address] [facility] [address] [place] [id number] PCP - General 09/24/16
--- OUTSIDE RECORDS SUMMARY | 2024-09-30 11:46 | XMS_ITS | Clinical Summary ---
Author Organization [facility] Address [address] [place] [address] Care Team Providers Care Rug Dyer Name Role Phone Duran Montero MD Primary Care Provider [phone] Allergies Active Allergy Reactions Criticality Noted Date [...] hyperglycemia, with long-term current use of insulin ([facility]) CHANGE SENSOR EVERY 14 DAYS [...] hyperglycemia, with long-term current use of insulin ([facility]) Inject 2 mg under the skin every 7 days 9 mL 3 05/22/20 24 Active pen needle, diabetic (BD Ultra-Fine Short Pen Needle) 31 gauge x 5/16 needleIndications: Type 2 diabetes mellitus with hyperglycemia, with long-term current use of insulin ([facility]) Inject 1 each under the [...] hyperglycemia, with long-term current use of insulin ([facility]) TAKE 1 TABLET DAILY BEFORE BREAKFAST 90 tablet 3 08/16/19 25 Active atorvastatin (LIPITOR) 20 mg tablet TAKE 1 TABLET DAILY 90 tablet 3 08/16/19 25 Active LANTUS 100 unit/mL (3 mL) pen for injectionIndicatio ns:Type 2 diabetes mellitus with hyperglycemia, with long-term current use of insulin ([facility]) INJECT 80 UNITS UNDER THE [...] Phentermine Assessment & Plan (05/06/2023 9:22 AM HAND IRONER): Start phentermine Diet and exercise Assessment & Plan (09/16/2022 11:32 AM CDT): Chronic problem. Discussed healthy diet and importance of regular physical activity (20- 30min/day, 150min/wk). SRI on CPAP 05/07/2021 Primary osteoarthritis of left shoulder 04/14/20 21 Overview (04/14/2021): Added automatically from request for surgery [id number] Diabetic polyneuropathy asso ciated with type 2 [...] 06/12/2018 Hyperlipidemia associated with type 2 diabetes cornle jenkins 06/06/2018 Assessment & Plan (04/06/2024 9:02 AM CDT): Chronic problem, controlled on current Atovastatin 20mg. Last lipid panel: 01/13/23 LDL=93, HO=207. No changes at this time. Will update lipid panel today. Verified that he uses [employer] to check results/results letter in [employer]. Will contact by phone if needed. Assessment & Plan (01/13/2023 10:12 AM CDT): Chronic problem, controlled on current Atovastatin 20mg. Last lipid panel: 01/13/22 LDL=80, TG=95. No changes at this time. Will update lipid panel today. Verified that he uses [employer] to check results/results letter in [employer]. Will contact by phone if needed. Assessment & Plan (09/16/2022 11:34 AM CDT): Chronic problem, controlled on current Atovastatin 20mg. Last lipid panel: 01/13/22 LDL=80, TG=95. No changes at this time. Assessment & Plan (05/13/2022 10:18 AM HAND IRONER): Chronic problem. On statin therapy, no changes. Assessment & Plan (01/13/2022 9:39 AM CDT): Chronic, well controlled Low fat Low cholesterol diet Exercise Continue statin therapy Check lipid profile Assessment & Plan (08/17/2021 4:39 PM HAND IRONER): Chronic, well controlled Continue current meds Assessment & Plan (12/21/2019 10:56 AM CDT): At goal on current medications. Continue statin therapy. Assessment & Plan (09/13/2019 2:22 PM CDT): At goal on current medications. Continue statin therapy. Assessment & Plan (05/10/2019 4:20 PM HAND IRONER): Goal of treatment , LDL cholesterol less [...] panel Assessment & Plan (06/06/2018 2:28 PM HAND IRONER): Goal of treatment , LDL cholesterol less [...] update labs today. Verified that he uses [employer] Aware to check results/results letter in [employer]. [...] time. Assessment & Plan (05/13/2022 10:18 AM HAND IRONER): Controlled on current medications, no changes. Assessment & Plan (01/13/2022 9:40 AM CDT): Chronic, well controlled Continue current meds Check MA Assessment & Plan (12/21/2019 10:55 AM CDT): Controlled on current medications. Continue plan. Assessment & Plan (09/13/2019 2:22 PM CDT): Controlled on current medications. Continue plan. Assessment & Plan (05/10/2019 4:19 PM HAND IRONER): Goal blood pressure is less than 140/85 Low salt diet recommended Daily aerobic exercise Continue current meds, including NICHOLE-I or ARB Check microalbumin Assessment & Plan (02/06/2019 3:15 PM CDT): Controlled on current medications. Assessment & Plan (10/21/2018 9:02 PM CDT): At goal on current medications. Assessment & Plan (06/06/2018 2:28 PM HAND IRONER): Goal blood pressure is less than 140/85 Low salt diet recommended Daily aerobic exercise Continue current meds, including NICHOLE-I or ARB Assessment & Plan (12/22/2017 10:39 AM CDT): Controlled on current medications. Assessment & Plan (09/21/2017 2:12 PM CDT): Controlled on current medications. Assessment & Plan (06/21/2017 11:48 AM HAND IRONER): Goal blood pressure is less than 140/85 Low salt diet recommended Daily aerobic exercise Continue current meds, including NICHOLE-I or ARB Nontoxic uninodular goiter 11/10/2013 Overview (09/29/2016): NONTOX UNINODULAR GOITER Assessment & Plan (09/02/2020 4:22 PM HAND IRONER): Thyroid ultrasound performed today Right lower thyroid [...] mychart. Aware to check results/results letter in [employer]. Will contact by phone if needed. UTD [...] Humalog Assessment & Plan (05/06/2023 9:22 AM HAND IRONER): Hba1c was Lab Results Component Value Date [...] mychart. Aware to check results/results letter in [employer]. Will contact by phone if needed. DM [...] sugars. Assessment & Plan (05/13/2022 10:20 AM HAND IRONER): Chronic problem, stable per [employer] download. We [...] hypoglycemia Assessment & Plan (08/17/2021 4:38 PM HAND IRONER): Hba1c was Lab Results Component Value Date [...] Metformin Assessment & Plan (09/02/2020 4:21 PM HAND IRONER): Hba1c was Lab Results Component Value Date [...] exam. Assessment & Plan (05/10/2019 4:19 PM HAND IRONER): Hba1c was Lab Results Component Value Date [...] exercise. Assessment & Plan (06/06/2018 2:39 PM HAND IRONER): Hba1c was Lab Results Component Value Date [...] accountability. Assessment & Plan (06/21/2017 2:06 PM HAND IRONER): Your Hba1c today was: 9.7 meaning a 3 month average sugar of : 237 Your goal hba1c is under 7.0 to prevent mcfp diabetes complications ( eye , kidney and [...] 01/13/2022 09/16/2022 Body mass index 40.0-44.9, adult ([facility]) 01/13/2022 09/16/2022 Hyperlipidemia 09/21/2017 09/16/2022 Assessment & Plan (12/22/2017 10:39 AM CDT): LDL at goal on current dose of statin Assessment & Plan (09/21/2017 2:11 PM CDT): Continue statin therapy BMI 40.0-44.9, adult 06/21/2017 023 Assessment & Plan (09/02/2020 4:22 PM HAND IRONER): Patient refusing the consideration for bariatric surgery Phentermine was started because elevated blood pressure Will try Wellbutrin Assessment & Plan (09/13/2019 2:22 PM CDT): Importance of following diet and exercising discussed. Assessment & Plan (02/06/2019 3:14 PM CDT): Recommend he try keto diet again Assessment & Plan (12/22/2017 10:39 AM CDT): Ketogenic diet reviewed Morbid obesity ([facility]) 06/21/2017 Assessment & Plan (04/06/2021 1:02 PM CDT): Worsening Low calorie diet discussed Start phentermine Assessment & Plan (12/21/2019 10:57 AM CDT): Continues to lose wt with focus on steady caloric intake , intermittent fasting, phentermine. Assessment & Plan (05/10/2019 4:18 PM HAND IRONER): Diet and exercise were discussed. 1200 Calorie diet advised 45-60 min aerobic / resistance exercise most days of the week recommended. Start Phentermine Bariatric surgery medically indicated . Pt seems to agreed Referral sent to [facility] bariatric center. Assessment & Plan (10/21/2018 9:02 PM CDT): Importance of following diet and exercising discussed. Assessment & Plan (09/21/2017 2:12 PM CDT): Importance of following diet and exercising discussed. Surgical History Surgery Date Site/Laterality Comments CARPAL TUNNEL RELEASE Carpal tunnel release HIP ARTHROPLASTY Hip replacement ROTATOR CUFF REPAIR 06/27/2004 - 06/26/2005 Right KNEE ARTHROSCOPY Bilateral JOINT REPLACEMENT lt hip Medical History Medical History Date Comments Type 2 diabetes mellitus (HCC) D iabetes type 2 Hypertension Hypertension Hx Other Medical PT IS CLAUSTROP HOBIC; Comments: SAUNDERS 12/26/2013 - Hypercholesteremia Sleep apnea Obesity Arthritis Low back pain Chronic pain disorder Family History Medical History Relation Name Comments Arthritis Brother Clint duron Alcohol abuse Father Oc duron Lung cancer Father Oc duron Cancer, lung; Stroke Mother Nga duron Stroke; Diabetes Other grandparents Hypertension Other grandparents Obesity Other grandparents Relation Name Status Comments Brother Clint duron Father Oc duron Mother Nga duron Other grandparents Social History Tobacco Use Types Packs/Day Years [...] on file Legal Sex Male 8:47 PM HAND IRONER Gender Identity Male 12/29/2020 10:31 AM CDT Sexual Orientation Straight 12/29/2020 10 :31 AM CDT Obstetrics History Last Filed Vital Signs Vital Sign Reading Time Taken Comments Blood Pressure 122/84 04/06/2024 8:56 AM CDT Pulse 76 04/06/2024 8:56 AM CDT Temperature 36.8 C (98.2 F) 05/14/2021 8:14 AM HAND IRONER Respiratory Rate 18 04/06/2024 8:56 AM CDT Oxygen Saturation 95% 05/14/2021 8:14 AM HAND IRONER Inhaled Oxygen Concentration - - Weight 131.5 kg (290 lb) 04/06/2024 8:56 AM CDT Height 172.7 cm (5' 7.99 ) 04/06/2024 8:56 AM CD T Body Mass Index 44.1 04/06/2024 8:56 AM CDT Plan of Treatment Health Maintenance Due Date Last Done Comments Colon Cancer Screening-Colonoscopy 1965 Hepatitis C Screening 1965 DTaP/Tdap/Td Vaccine (1 - Tdap) 1976 Hepatitis B Screening 1983 Regular Well Visit/Exam 18-64 1983 Pneumococcal vaccine <65 (1 of 2 - PCV) 1984 Zoster Vaccine (1 of 2) 2015 Prostate Cancer Screening-PSA 10/12/2019 10/11/2017 Depression Screening 01/14/2024 01/13/2023, 08/17/2021, 09/02/2020, Additional history exists Covid-19 Vaccine (2023-2 5 season) 2024 09/05/2020, 08/08/2020 Hemoglobin A1C 10/05/2024 04/06/2024, 09/26, 05/06/2023, Additional history exists Dilated Eye Exam 01/16/2025 01/17/2024, , 01/05/2022, Additional history exists Influenza Vaccine (Season Ended) 2025 Albumin Creatinine Ratio, Urine 04/06/2025 04/06/2024, 01/13/2023, 01/13/2022, Additional history exists Foot Exam 04/06/2025 04/06/2024, 08/26, 08/17/2021, Additional history exists Lipid Panel 04/06/2025 04/06/2024, 12/26, 01/13/2022, Additional history exists eGFR 04/06/2025 04/06/2024, 12/26, 05/14/2021, Additional history exists Goals Goal Patient Goal Type Associated Problems Recent Progress Patient-Stated? Author BH-Pain Behavioral Health Improving(04/2020 12:07 PM HAND IRONER) Mariana Camejo, MARTA Note: Patient will establish a comfort-function goal and identify the pain level that will allow the patient to perform desired activities and achieve an acceptable quality of life. Medical Devices Implanted Type Area Superintendent Building Device Identifier Shelf Expiration Date Model / Serial / Lot [employer] 6191-1-010 Simplex P Radiopaque Full Dose Cement Bone Sterile - Sna - [id number] Implanted:Qty: 1 on 05/13/2021 by Harinder Orosco MD at [facility] Bone Cement Left: Shoulder [employer] 05/26/2023 6191-1-0 10 / NA / [id number] [employer] [id number] Aequalis Perform Cortiloc 60mm Peg Shoulder Large Component Latex Free - [id number] - [id number] Implanted:Qty: 1 on 05/13/2021 by Harinder Orosco MD at [facility] Other - see comments Left: Shoulder [employer] [id number] 08/13/2025 [id number] / [id number] / [employer] [id number] Head Perform Cocr Modular Humeral - [id number] - [id number] Implanted:Qty: 1 on 05/13/2021 by Harinder Orosco MD at [facility] Other - see comments Left: Shoulder [employer] [id number] 11/14/2025 [id number] / [id number] / [employer] [id number] Manager Transfusion Perform Centered Modular Humeral Head Ti - Sna - [id number] Implanted:Qty: 1 on 05/13/2021 by Harinder Orosco MD at [facility] Other - see comments Left: Shoulder [employer] [id number] 04/08/2026 [id number] / NA / [employer] [id number] Stem Perform Sz 3 Humeral - [id number] - [id number] Implanted:Qty: 1 on 05/13/2021 by Harinder Orosco MD at [facility] Other - see comments Left: Shoulder [employer] [id number] 09/18/2025 [id number] / [id number] / Lt Thr Hip Explanted Type Area Superintendent Building Device Identifier Shelf Expiration Date Model / Serial / Lot Watchwith [id number] Guide Pin Perform 3.0 X 100mm - Sna - [id number] Explanted:Qty : 1 on 05/13/2021 by Harinder Orosco MD at [facility] Other - see comments Left: Shoulder [employer] [id number] / NA / Description:For fixation pur poses only. Not intended for implant. Procedures Procedure Name Priority Date/Time Associated Diagnosis Comments EGFR Routine 04/06/2024 9:50 AM CDT Type 2 diabetes mellitus with hyperglycemia, with long-term current use of insulin (HCC) Hypertension associated with diabetes (HCC) LIPID PANEL Routine 04/06/2024 9:50 AM CDT Type 2 diabetes mellitus with hyperglycemia, with long-term current use of insulin ([facility]) Hyperlipidemia associated with type 2 diabetes mellitus (HCC) ALBUMIN CREATININE RATIO, URINE Routine 04/06/2024 9:50 AM CDT Type 2 diabetes mellitus with hyperglycemia, with long-term current use of insulin (HCC) POCT HEMOGLOBIN A1C Routine 04/06/2024 9 :05 AM CDT Type 2 diabetes mellitus with hyperglycemia, with long-term current use of insulin ([facility]) DIABETES EYE EXAM Routine 01/17/2024 8:11 AM [...] 9:50 AM CDT 04/06/2024 2:53 PM CDT us Haily Siddiqi WARNING ANALYST LAB BLOOD ORDERABLES Asuncion l Result Performing Organization Address [facility] de Phone Number JOB [id number] [place] [address] * Albumin Creatinine Ratio, Urine (04/06/2024 9:50 AM CDT) Albumin Ur 27.5 mg/L Comment: Interpretive Data No reference range established. Current interpretive data was last revised 2018. Creatinine Ur 240.8 mg/dL [facility] Comment: Interpretive Data No reference range established. Current interpretive data was last revised 2018. Albumin Creatinine Ratio, Ur 11 1 - 29 mg/g [facility] Urine 04/06/2024 9:50 AM CDT 04/06/2024 2:41 PM CDT us Haily Siddiqi WARNING ANALYST LAB URINE ORDERABLES Asuncion l Result Performing Organization Address [facility] Co de Phone Number [facility] [address] [address] Department of [employer] [place], [place] [id number] * Lipid panel (04/06/2024 9:50 AM CDT) [...] mg/dL High: >160 mg/dL Calculated using the Arnold LDL-C estimating equation. This equation was implemented on 2024. Prior to this date LDL-C was estimated using the Friedewald equation. Literature References: 1. Expert Panel on Integrated Guidelines for Cardiovascular Health and Risk Reduction in Children and Adolescents. Pediatrics 2011;128:S213 2. NCEP Expert Panel. Circulation 2004;110:227 3. Arnold Zavaleta et al. WALI Cardiol. 2020 October 25;5(5):540-548. doi: 10.1001/jamacardio.2020.0013 Current Interpretive Data was [...] revised on 2018. Chol/HDL ratio 3 JOB REYES Blood 04/06/2024 9:50 AM CDT 04/06/2024 2:41 PM CDT us Haily Siddiqi NP LAB BLOOD ORDERABLES [facility]uncion l Result JOB REYES [id number] [place] [address] * (ABNORMAL) POCT hemoglobin A1c (04/06/2024 9:05 AM CDT) Hemoglobin A1C, POC 8.7 4.0 - 5.6 % Blood 04/06/2024 9:05 AM CDT us Haily Siddiqi NP POINT OF CARE TEST ORDERA BLES Final Result * (ABNORMAL) DIABETES EYE EXAM (01/17/2024 8:11 AM CDT) Historical Provider HEALTH MAINTENANCE Final Result * Diabetic Foot Exam (12/12/2019) Result [facility] Historical Provider HEALTH MAINTENANCE Final Result * PSA screen (10/11/2017 11:35 AM CDT) SCRIBED PSA, Serum 1.5 0.0 - 4.0 [facility] Blood specimen (specimen) Result [facility] Historical Provider LAB BLOOD ORDERABLES Edit ed Result - Final [facility] from Last 3 Months or Most Recently Relevant to Health Maintenance Insurance [facility] [employer] H[employer]PPO Address: [facility] [address] [place] [address] [facility] [employer] H[employer]PPO Address: [address] [place] [address] [place] [address] [facility] [employer] H[employer]/PPO Address: [address] [place] [address] [facility] [employer] H[employer]O Address: [address] [address] [place] [address] Advance Directives For more information, please contact: [phone] * Full Code (Latest Code Status on File) Date Activated Date Inactivated Comments 05/13/2021 5:01 PM 05/14/2021 2:11 PM Care Teams Rug Dyer Relationship Specialty Start Date End Date Duran Montero MD [address] [facility] [address] [place] [address] PCP - General 09/24/16
[2024-09-30 12:01] VITALS: BP 145/68; PULSE 86; RESP 15; TEMP 36.4; O2SAT 98
[2024-09-30 13:05] LABS: Basophils Percent Auto 0.3 % (0.2-1.2); Eosinophils Percent Auto 0.4 % (0-4.4); Hematocrit 36.7 % (42.0-52.0); Hemoglobin 12.2 g/dL (14.0-18.0); Immature Granulocyte Absolute 0.04 K/mm3 (0.00-0.031); Immature Granulocyte Percent A 0.4 % (0-0.5); Lymphocytes Percent Auto 6.2 % (18.3-44.2); Mean Corpuscular HGB Conc 33.2 g/dl (32-36); Mean Corpuscular Volume 84.4 fl (80-100); Mean Platelet Volume 8.9 fl (7.4-10.4); Monocytes Absolute Auto 0.9 K/mm3 (0.1-0.6); Neutrophils Percent Auto 83.7 % (45.5-73.1); Platelet Count Result 350 k/mm3 (150-375); Red Blood Count 4.35 M/mm3 (4.6-6.20); Red Cell Distribution Width 12.6 % (11.5-14.5); White Blood Count 9.6 K/mm3 (4.5-10.0)
[2024-09-30 13:17] LABS: Lactic Acid Reflex 1.8 mmol/L (0.7-2.0)
[2024-09-30 13:18] LABS: Alanine Aminotransferase 49 U/L (6-50); Alkaline Phosphatase 216 U/L (38-126); Anion Gap 7 mmol/L (4-12); Aspartate Amino Transferase 80 U/L (17-59); Bilirubin,Total 0.8 mg/dL (0.2-1.3); Blood Urea Nitrogen 12 mg/dL (9-20); Calcium 9.3 mg/dL (8.4-10.2); Carbon Dioxide 32 mmol/L (22-30); Chloride 93 mmol/L (98-107); Estimated CRCL calculation 109 ml/min; Estimated Glomerular Filt Rate > 60; Glucose 305 mg/dL (65-110); Potassium 4.1 mmol/L (3.4-5.0); Sodium 132 mmol/L (137-145)
--- OUTSIDE RECORDS SUMMARY | 2024-09-30 13:20 | XMS_ITS | CONTINUITY OF CARE DOCUMENT ---
Author Name aaron walker Address Unknown Organization [facility] Address [address] [facility] [address] [place] [address] Phone [phone] Care Team Providers Care Flower Cheniller Name Role Phone RADHA WANG MD Unavailable RADHA WANG MD Unavailable [phone] INSURANCE PROVIDERS Payer name Policy type / Coverage type [place] red democrat ID [facility] Other [id number]
--- OUTSIDE RECORDS SUMMARY | 2024-09-30 13:20 | XMS_ITS | Referral Summary ---
Author Organization [facility] Address [address] [place] [address] Care Team Providers Care Pbx Supervisor Name Role Phone Duran Montero MD Primary Care Provider [phone] Allergies Active Allergy Reactions Criticality Noted Date [...] hyperglycemia, with long-term current use of insulin ([facility]) CHANGE SENSOR EVERY 14 DAYS 6 kit [...] hyperglycemia, with long-term current use of insulin ([facility]) Inject 2 mg under the skin every 7 days 9 mL 3 05/22/20 24 Active pen needle, diabetic (BD Ultra-Fine Short Pen Needle) 31 gauge x 5/16 needleIndications: Type 2 diabetes mellitus with hyperglycemia, with long-term current use of insulin ([facility]) Inject 1 each under the skin 4 [...] hyperglycemia, with long-term current use of insulin ([facility]) TAKE 1 TABLET DAILY BEFORE BREAKFAST 90 tablet 3 08/16/19 25 Active atorvastatin (LIPITOR) 20 mg tablet TAKE 1 TABLET DAILY 90 tablet 3 08/16/19 25 Active LANTUS 100 unit/mL (3 mL) pen for injectionIndicatio ns:Type 2 diabetes mellitus with hyperglycemia, with long-term current use of insulin ([facility]) INJECT 80 UNITS UNDER THE SKIN NIGHTLY [...] Phentermine Assessment & Plan (05/06/2023 9:22 AM TRAVEL INFORMATION CENTER SUPERVISOR): Start phentermine Diet and exercise Assessment & Plan (09/16/2022 11:32 AM CDT): Chronic problem. Discussed healthy diet and importance of regular physical activity (20- 30min/day, 150min/wk). SRI on CPAP 05/07/2021 Primary osteoarthritis of left shoulder 04/14/20 21 Overview (04/14/2021): Added automatically from request for surgery [id number] Diabetic polyneuropathy asso ciated with type 2 [...] Atovastatin 20mg. Last lipid panel: 01/13/23 LDL=93, WG=190. No changes at this time. Will update lipid panel today. Verified that he uses [email or web address] Aware to check results/results letter in [facility]. Will contact by phone if needed. Assessment & Plan (01/13/2023 10:12 AM CDT): Chronic problem, controlled on current Atovastatin 20mg. Last lipid panel: 01/13/22 LDL=80, TG=95. No changes at this time. Will update lipid panel today. Verified that he uses [email or web address] Aware to check results/results letter in [facility] [employer]. Will contact by phone if needed. Assessment & Plan (09/16/2022 11:34 AM CDT): Chronic problem, controlled on current Atovastatin 20mg. Last lipid panel: 01/13/22 LDL=80, TG=95. No changes at this time. Assessment & Plan (05/13/2022 10:18 AM TRAVEL INFORMATION CENTER SUPERVISOR): Chronic problem. On statin therapy, no changes. Assessment & Plan (01/13/2022 9:39 AM CDT): Chronic, well controlled Low fat Low cholesterol diet Exercise Continue statin therapy Check lipid profile Assessment & Plan (08/17/2021 4:39 PM TRAVEL INFORMATION CENTER SUPERVISOR): Chronic, well controlled Continue current meds Assessment & Plan (12/21/2019 10:56 AM CDT): At goal on current medications. Continue statin therapy. Assessment & Plan (09/13/2019 2:22 PM CDT): At goal on current medications. Continue statin therapy. Assessment & Plan (05/10/2019 4:20 PM TRAVEL INFORMATION CENTER SUPERVISOR): Goal of treatment , LDL cholesterol less [...] panel Assessment & Plan (06/06/2018 2:28 PM TRAVEL INFORMATION CENTER SUPERVISOR): Goal of treatment , LDL cholesterol less [...] update labs today. Verified that he uses [employer]. Aware to check results/results letter in mychart. [...] time. Assessment & Plan (05/13/2022 10:18 AM TRAVEL INFORMATION CENTER SUPERVISOR): Controlled on current medications, no changes. Assessment & Plan (01/13/2022 9:40 AM CDT): Chronic, well controlled Continue current meds Check MA Assessment & Plan (12/21/2019 10:55 AM CDT): Controlled on current medications. Continue plan. Assessment & Plan (09/13/2019 2:22 PM CDT): Controlled on current medications. Continue plan. Assessment & Plan (05/10/2019 4:19 PM TRAVEL INFORMATION CENTER SUPERVISOR): Goal blood pressure is less than 140/85 Low salt diet recommended Daily aerobic exercise Continue current meds, including NICHOLE-I or ARB Check microalbumin Assessment & Plan (02/06/2019 3:15 PM CDT): Controlled on current medications. Assessment & Plan (10/21/2018 9:02 PM CDT): At goal on current medications. Assessment & Plan (06/06/2018 2:28 PM TRAVEL INFORMATION CENTER SUPERVISOR): Goal blood pressure is less than 140/85 Low salt diet recommended Daily aerobic exercise Continue current meds, including NICHOLE-I or ARB Assessment & Plan (12/22/2017 10:39 AM CDT): Controlled on current medications. Assessment & Plan (09/21/2017 2:12 PM CDT): Controlled on current medications. Assessment & Plan (06/21/2017 11:48 AM TRAVEL INFORMATION CENTER SUPERVISOR): Goal blood pressure is less than 140/85 Low salt diet recommended Daily aerobic exercise Continue current meds, including NICHOLE-I or ARB Nontoxic uninodular goiter 11/10/2013 Overview (09/29/2016): NONTOX UNINODULAR GOITER Assessment & Plan (09/02/2020 4:22 PM TRAVEL INFORMATION CENTER SUPERVISOR): Thyroid ultrasound performed today Right lower thyroid [...] mychart. Aware to check results/results letter in [employer]. Will contact by phone if needed. UTD [...] Humalog Assessment & Plan (05/06/2023 9:22 AM TRAVEL INFORMATION CENTER SUPERVISOR): Hba1c was Lab Results Component Value Date [...] mychart. Aware to check results/results letter in [employer]. Will contact by phone if needed. DM [...] sugars. Assessment & Plan (05/13/2022 10:20 AM TRAVEL INFORMATION CENTER SUPERVISOR): Chronic problem, stable per [facility] download. We [...] hypoglycemia Assessment & Plan (08/17/2021 4:38 PM TRAVEL INFORMATION CENTER SUPERVISOR): Hba1c was Lab Results Component Value Date [...] of hyypoglcyemia discussed. Start CGM with Freestyle Traesure Increase Lantus to 80 units at bedtime Take Humalog, 30 units with each meal For sugars over 200, take 35 units For sugars over 300, take 40 units Stay On Bydureon and Metformin Assessment & Plan (09/02/2020 4:21 PM TRAVEL INFORMATION CENTER SUPERVISOR): Hba1c was Lab Results Component Value Date [...] exam. Assessment & Plan (05/10/2019 4:19 PM TRAVEL INFORMATION CENTER SUPERVISOR): Hba1c was Lab Results Component Value Date [...] exercise. Assessment & Plan (06/06/2018 2:39 PM TRAVEL INFORMATION CENTER SUPERVISOR): Hba1c was Lab Results Component Value Date [...] accountability. Assessment & Plan (06/21/2017 2:06 PM TRAVEL INFORMATION CENTER SUPERVISOR): Your Hba1c today was: 9.7 meaning a 3 month average sugar of : 237 Your goal hba1c is under 7.0 to prevent fpc diabetes complications ( eye , kidney and [...] 01/13/2022 09/16/2022 Body mass index 40.0-44.9, adult ([facility]) 01/13/2022 09/16/2022 Hyperlipidemia 09/21/2017 09/16/2022 Assessment & Plan (12/22/2017 10:39 AM CDT): LDL at goal on current dose of statin Assessment & Plan (09/21/2017 2:11 PM CDT): Continue statin therapy BMI 40.0-44.9, adult 06/21/2017 023 Assessment & Plan (09/02/2020 4:22 PM TRAVEL INFORMATION CENTER SUPERVISOR): Patient refusing the consideration for bariatric surgery Phentermine was started because elevated blood pressure Will try Wellbutrin Assessment & Plan (09/13/2019 2:22 PM CDT): Importance of following diet and exercising discussed. Assessment & Plan (02/06/2019 3:14 PM CDT): Recommend he try keto diet again Assessment & Plan (12/22/2017 10:39 AM CDT): Ketogenic diet reviewed Morbid obesity ([facility]) 06/21/2017 Assessment & Plan (04/06/2021 1:02 PM CDT): Worsening Low calorie diet discussed Start phentermine Assessment & Plan (12/21/2019 10:57 AM CDT): Continues to lose wt with focus on steady caloric intake , intermittent fasting, phentermine. Assessment & Plan (05/10/2019 4:18 PM TRAVEL INFORMATION CENTER SUPERVISOR): Diet and exercise were discussed. 1200 Calorie diet advised 45-60 min aerobic / resistance exercise most days of the week recommended. Start Phentermine Bariatric surgery medically indicated . Pt seems to agreed Referral sent to [facility] bariatric center. Assessment & Plan (10/21/2018 [...] on file Legal Sex Male 8:47 PM TRAVEL INFORMATION CENTER SUPERVISOR Gender Identity Male 12/29/2020 10:31 AM CDT Sexual Orientation Straight 12/29/2020 10 :31 AM CDT Last Filed Vital Signs Vital Sign Reading Time Taken Comments Blood Pressure 122/84 04/06/2024 8:56 AM CDT Pulse 76 04/06/2024 8:56 AM CDT Temperature 36.8 C (98.2 F) 05/14/2021 8:14 AM TRAVEL INFORMATION CENTER SUPERVISOR Respiratory Rate 18 04/06/2024 8:56 AM CDT Oxygen Saturation 95% 05/14/2021 8:14 AM TRAVEL INFORMATION CENTER SUPERVISOR Inhaled Oxygen Concentration - - Weight 131.5 kg (290 lb) 04/06/2024 8:56 AM CDT Height 172.7 cm (5' 7.99 ) 04/06/2024 8:56 AM CD T Body Mass Index 44.1 04/06/2024 8:56 AM CDT Plan of Treatment Not on file Goals Goal Patient Goal Type Associated Problems Recent Progress Patient-Stated? Author BH-Pain Behavioral Health Improving(04/2020 12:07 PM TRAVEL INFORMATION CENTER SUPERVISOR) No Mariana Berg, RN Note: Patient will establish a comfort-function goal and identify the pain level that will allow the patient to perform desired activities and achieve an acceptable quality of life. Medical Devices Implanted Type Area Senior Python Developer Device Identifier Shelf Expiration Date Model / Serial / Lot [employer] 6191-1-010 Simplex P Radiopaque Full Dose Cement Bone Sterile - Sna - [id number] Implanted:Qty: 1 on 05/13/2021 by Harinder Orosco MD at [facility] Bone Cement Left: Shoulder [employer] 05/26/2023 6191-1-0 10 / NA / [id number] [employer] [id number] Aequalis Perform Cortiloc 60mm Peg Shoulder Large Component Latex Free - [id number] - [id number] Implanted:Qty: 1 on 05/13/2021 by Harinder Orosco MD at [facility] Other - see comments Left: Shoulder Senor [employer] [id number] 08/13/2025 [id number] / [id number] / [employer] [id number] Head Perform Cocr Modular Humeral - [id number] - [id number] Implanted:Qty: 1 on 05/13/2021 by Harinder Orosco MD at [facility] Other - see comments Left: Shoulder [employer] [id number] 11/14/2025 [id number] / [id number] / [employer] [id number] Clinical Pharmacy Coordinator Perform Centered Modular Humeral Head Ti - Sna - [id number] Implanted:Qty: 1 on 05/13/2021 by Harinder Orosco MD at [facility] Other - see comments Left: Shoulder [employer]or [employer] [id number] 04/08/2026 [id number] / NA / [employer] [id number] Stem Perform Sz 3 Humeral - [id number] - [id number] Implanted:Qty: 1 on 05/13/2021 by Harinder Orosco MD at [facility] Other - see comments Left: Shoulder [employer] [id number] 09/18/2025 [id number] / [id number] / Lt Thr Hip Explanted Type Area Senior Python Developer Device Identifier Shelf Expiration Date Model / Serial / Lot [address] [id number] Guide Pin Perform 3.0 X 100mm - Sna - [id number] Explanted:Qty : 1 on 05/13/2021 by Harinder Orosco MD at [facility] Other - see comments Left: Shoulder [employer] [id number] / NA / Description:For fixation pur poses [...] Asuncion l Result Performing Organization Address [facility] Co de Phone Number JOB REYES [address] [place] [address] * Albumin Creatinine Ratio, Urine (04/06/2024 9:50 AM CDT) Albumin Ur 27.5 mg/L Comment: Interpretive Data No reference range established. Current interpretive data was last revised 2018. Creatinine Ur 240.8 mg/dL [facility] Comment: Interpretive Data No reference range established. Current interpretive data was last revised 2018. Albumin Creatinine Ratio, Ur 11 1 - 29 mg/g [facility] Urine 04/06/2024 9:50 AM CDT 04/06/2024 2:41 PM CDT us Haily Siddiqi NP LAB URINE ORDERABLES Asuncion l Result Performing Organization Address [facility]/ZIP Co de Phone Number JOB [address] [address] [place] [address] * Lipid panel (04/06/2024 9:50 [...] Circulation 2004;110:227 3. Arnold Zavaleta et al. [facility] Cardiol. 2019October 25;5(5):540-548. doi: [email or web address] Current Interpretive [...] LAB BLOOD ORDERABLES Asuncion l Result JOB [id number] Department [place] [address] * (ABNORMAL) POCT hemoglobin A1c (04/06/2024 9:05 [...] Relevant to Health [place] [id number] [facility] CHOICE PLUS [facility] CHOICE PLUS [facility] CHOICE PLUS [facility] CHOICE PLUS Advance Directives For more information, please contact: [phone] * Full Code (Latest Code Status on File) Date Activated Date Inactivated Comments 05/13/2021 5:01 PM 05/14/2021 2:11 PM Care Teams Pbx Supervisor Relationship Specialty Start Date End Date Duran Montero MD [address] [facility] [address] [place] [id number] PCP - General 09/24/16
--- OUTSIDE RECORDS SUMMARY | 2024-09-30 13:20 | XMS_ITS | Clinical Summary ---
Author Organization [facility] Address [address] [place] [address] Care Team Providers Care Director Of Cardiac Rehabilitation Name Role Phone WinstonJarekDurankarlos Nicole DO Primary Care Provider [phone] Source Comments [facility],non-owned Affiliates and Associated Physician Practices is amultiple site organization consisting of ambulatory clinics and hospital sitesin [place], [place], [place] and [place]. This disclosure is being madepursuant to the Care Everywhere program and may not contain all information available regarding this patient. Last updated 18.[facility] Allergies Active Allergy Reactions Criticality Noted Date [...] age to complete this topic Care Teams Director Of Cardiac Rehabilitation Relationship Specialty Start Date End Date Duran Montero DO [address] [facility] [address] [place] [address] PCP - General 07/14/12
--- OUTSIDE RECORDS SUMMARY | 2024-09-30 13:20 | XMS_ITS | Clinical Summary ---
Author Organization [facility] Address [address] [place] [address] Phone Care Team Providers Care Stop Attacher Name Role Phone Unavailable Primary Care Provider [...]
--- OUTSIDE RECORDS SUMMARY | 2024-09-30 13:20 | XMS_ITS | Clinical Summary ---
Author Organization [facility] Address [address] [place] [address] Care Team Providers Care Installation Tech Name Role Phone Duran Montero MD Primary Care Provider [phone] Allergies Active Allergy Reactions Criticality Noted Date [...] hyperglycemia, with long-term current use of insulin ([facility]) CHANGE SENSOR EVERY 14 DAYS 6 kit [...] hyperglycemia, with long-term current use of insulin ([facility]) Inject 2 mg under the skin every 7 days 9 mL 3 05/22/20 24 Active pen needle, diabetic (BD Ultra-Fine Short Pen Needle) 31 gauge x 5/16 needleIndications: Type 2 diabetes mellitus with hyperglycemia, with long-term current use of insulin ([facility]) Inject 1 each under the skin 4 [...] hyperglycemia, with long-term current use of insulin ([facility]) TAKE 1 TABLET DAILY BEFORE BREAKFAST 90 tablet 3 08/16/19 25 Active atorvastatin (LIPITOR) 20 mg tablet TAKE 1 TABLET DAILY 90 tablet 3 08/16/19 25 Active LANTUS 100 unit/mL (3 mL) pen for injectionIndicatio ns:Type 2 diabetes mellitus with hyperglycemia, with long-term current use of insulin ([facility]) INJECT 80 UNITS UNDER THE SKIN NIGHTLY [...] Phentermine Assessment & Plan (05/06/2023 9:22 AM [employer]): Start phentermine Diet and exercise Assessment & Plan (09/16/2022 11:32 AM CDT): Chronic problem. Discussed healthy diet and importance of regular physical activity (20- 30min/day, 150min/wk). SRI on CPAP 05/07/2021 Primary osteoarthritis of left shoulder 04/14/20 21 Overview (04/14/2021): Added automatically from request for surgery [id number] Diabetic polyneuropathy asso ciated with type 2 [...] Atovastatin 20mg. Last lipid panel: 01/13/23 LDL=93, XE=287. No changes at this time. Will update lipid panel today. Verified that he uses [employer] to check results/results letter in [place]. Will contact by phone if needed. Assessment & Plan (01/13/2023 10:12 AM CDT): Chronic problem, controlled on current Atovastatin 20mg. Last lipid panel: 01/13/22 LDL=80, TG=95. No changes at this time. Will update lipid panel today. Verified that he uses [employer] to check results/results letter in [place]. Will contact by phone if needed. Assessment & Plan (09/16/2022 11:34 AM CDT): Chronic problem, controlled on current Atovastatin 20mg. Last lipid panel: 01/13/22 LDL=80, TG=95. No changes at this time. Assessment & Plan (05/13/2022 10:18 AM [employer]): Chronic problem. On statin therapy, no changes. Assessment & Plan (01/13/2022 9:39 AM CDT): Chronic, well controlled Low fat Low cholesterol diet Exercise Continue statin therapy Check lipid profile Assessment & Plan (08/17/2021 4:39 PM [employer]): Chronic, well controlled Continue current meds Assessment & Plan (12/21/2019 10:56 AM CDT): At goal on current medications. Continue statin therapy. Assessment & Plan (09/13/2019 2:22 PM CDT): At goal on current medications. Continue statin therapy. Assessment & Plan (05/10/2019 4:20 PM [employer]): Goal of treatment , LDL cholesterol less [...] panel Assessment & Plan (06/06/2018 2:28 PM [employer]): Goal of treatment , LDL cholesterol less [...] update labs today. Verified that he uses [employer]. Aware to check results/results letter in mychart. [...] time. Assessment & Plan (05/13/2022 10:18 AM [employer]): Controlled on current medications, no changes. Assessment & Plan (01/13/2022 9:40 AM CDT): Chronic, well controlled Continue current meds Check MA Assessment & Plan (12/21/2019 10:55 AM CDT): Controlled on current medications. Continue plan. Assessment & Plan (09/13/2019 2:22 PM CDT): Controlled on current medications. Continue plan. Assessment & Plan (05/10/2019 4:19 PM [employer]): Goal blood pressure is less than 140/85 Low salt diet recommended Daily aerobic exercise Continue current meds, including NICHOLE-I or ARB Check microalbumin Assessment & Plan (02/06/2019 3:15 PM CDT): Controlled on current medications. Assessment & Plan (10/21/2018 9:02 PM CDT): At goal on current medications. Assessment & Plan (06/06/2018 2:28 PM [employer]): Goal blood pressure is less than 140/85 Low salt diet recommended Daily aerobic exercise Continue current meds, including NICHOLE-I or ARB Assessment & Plan (12/22/2017 10:39 AM CDT): Controlled on current medications. Assessment & Plan (09/21/2017 2:12 PM CDT): Controlled on current medications. Assessment & Plan (06/21/2017 11:48 AM [employer]): Goal blood pressure is less than 140/85 Low salt diet recommended Daily aerobic exercise Continue current meds, including NICHOLE-I or ARB Nontoxic uninodular goiter 11/10/2013 Overview (09/29/2016): NONTOX UNINODULAR GOITER Assessment & Plan (09/02/2020 4:22 PM [employer]): Thyroid ultrasound performed today Right lower thyroid [...] mychart. Aware to check results/results letter in [employer]. Will contact by phone if needed. UTD [...] Humalog Assessment & Plan (05/06/2023 9:22 AM [employer]): Hba1c was Lab Results Component Value Date [...] mychart. Aware to check results/results letter in [employer] in[employer]. Will contact by phone if needed. DM [...] sugars. Assessment & Plan (05/13/2022 10:20 AM [employer]): Chronic problem, stable per [facility] download. We [...] hypoglycemia Assessment & Plan (08/17/2021 4:38 PM [employer]): Hba1c was Lab Results Component Value Date [...] Metformin Assessment & Plan (09/02/2020 4:21 PM [employer]): Hba1c was Lab Results Component Value Date [...] exam. Assessment & Plan (05/10/2019 4:19 PM [employer]): Hba1c was Lab Results Component Value Date [...] exercise. Assessment & Plan (06/06/2018 2:39 PM [employer]): Hba1c was Lab Results Component Value Date [...] accountability. Assessment & Plan (06/21/2017 2:06 PM [employer]): Your Hba1c today was: 9.7 meaning a 3 month average sugar of : 237 Your goal hba1c is under 7.0 to prevent long-term diabetes complications ( eye , kidney and [...] 01/13/2022 09/16/2022 Body mass index 40.0-44.9, adult ([facility]) 01/13/2022 09/16/2022 Hyperlipidemia 09/21/2017 09/16/2022 Assessment & Plan (12/22/2017 10:39 AM CDT): LDL at goal on current dose of statin Assessment & Plan (09/21/2017 2:11 PM CDT): Continue statin therapy BMI 40.0-44.9, adult 06/21/2017 023 Assessment & Plan (09/02/2020 4:22 PM [employer]): Patient refusing the consideration for bariatric surgery Phentermine was started because elevated blood pressure Will try Wellbutrin Assessment & Plan (09/13/2019 2:22 PM CDT): Importance of following diet and exercising discussed. Assessment & Plan (02/06/2019 3:14 PM CDT): Recommend he try keto diet again Assessment & Plan (12/22/2017 10:39 AM CDT): Ketogenic diet reviewed Morbid obesity ([facility]) 06/21/2017 Assessment & Plan (04/06/2021 1:02 PM CDT): Worsening Low calorie diet discussed Start phentermine Assessment & Plan (12/21/2019 10:57 AM CDT): Continues to lose wt with focus on steady caloric intake , intermittent fasting, phentermine. Assessment & Plan (05/10/2019 4:18 PM [employer]): Diet and exercise were discussed. 1200 Calorie diet advised 45-60 min aerobic / resistance exercise most days of the week recommended. Start Phentermine Bariatric surgery medically indicated . Pt seems to agreed Referral sent to [facility] bariatric center. Assessment & Plan (10/21/2018 9:02 [...] on file Legal Sex Male 8:47 PM [employer] Gender Identity Male 12/29/2020 10:31 AM CDT Sexual Orientation Straight 12/29/2020 10 :31 AM CDT Obstetrics History Last Filed Vital Signs Vital Sign Reading Time Taken Comments Blood Pressure 122/84 04/06/2024 8:56 AM CDT Pulse 76 04/06/2024 8:56 AM CDT Temperature 36.8 C (98.2 F) 05/14/2021 8:14 AM [employer] Respiratory Rate 18 04/06/2024 8:56 AM CDT Oxygen Saturation 95% 05/14/2021 8:14 AM [employer] Inhaled Oxygen Concentration - - Weight 131.5 [...] Author [facility](04/2020 12:07 PM [employer]) Mariana Camejo, MARTA Note: Patient will establish a comfort-function goal and identify the pain level that will allow the patient to perform desired activities and achieve an acceptable quality of life. Medical Devices Implanted Type Area Ore Miner Device Identifier Shelf Expiration Date Model / Serial / Lot [employer] 6191-1-010 Simplex P Radiopaque Full Dose Cement Bone Sterile - Sna - [id number] Implanted:Qty: 1 on 05/13/2021 by Harinder Orosco MD at [facility] Bone Cement Left: Shoulder [employer] 05/26/2023 6191-1-0 10 / NA / [id number] [employer] [id number] Aequalis Perform Cortiloc 60mm Peg Shoulder Large Component Latex Free - [id number] - [id number] Implanted:Qty: 1 on 05/13/2021 by Harinder Orosco MD at [facility] Other - see comments Left: Shoulder [employer] [id number] 08/13/2025 [id number] / [id number] / [employer] [id number] Head Perform Cocr Modular Humeral - [id number] - [id number] Implanted:Qty: 1 on 05/13/2021 by Harinder Orosco MD at [facility] Other - see comments Left: Shoulder [employer] [id number] 11/14/2025 [id number] / [id number] / [employer] [id number] Vacuum Worker Perform Centered Modular Humeral Head Ti - Sna - [id number] Implanted:Qty: 1 on 05/13/2021 by Harinder Orosco MD at [facility] Other - see comments Left: Shoulder [employer] [id number] 04/08/2026 [id number] / NA / [employer] [id number] Stem Perform Sz 3 Humeral - [id number] - [id number] Implanted:Qty: 1 on 05/13/2021 by Harinder Orosco MD at [facility] Other - see comments Left: Shoulder [employer] [id number] 09/18/2025 [id number] / [id number] / Lt Thr Hip Explanted Type Area Ore Miner Device Identifier Shelf Expiration Date Model / Serial / Lot [employer] [id number] Guide Pin Perform 3.0 X 100mm - Sna - [id number] Explanted:Qty : 1 on 05/13/2021 by Harinder Orosco MD at [facility] Other - see comments Left: Shoulder [employer] [id number] / NA / Description:For fixation pur poses only. Not intended for implant. Procedures Procedure Name Priority Date/Time Associated Diagnosis Comments EGFR Routine 04/06/2024 9:50 AM CDT Type 2 diabetes mellitus with hyperglycemia, with long-term current use of insulin (HCC) Hypertension associated with diabetes (HCC) LIPID PANEL Routine 04/06/2024 9:50 AM CDT Type 2 diabetes mellitus with hyperglycemia, with long-term current use of insulin ([facility]) Hyperlipidemia associated with type 2 diabetes mellitus (HCC) ALBUMIN CREATININE RATIO, URINE Routine 04/06/2024 9:50 AM CDT Type 2 diabetes mellitus with hyperglycemia, with long-term current use of insulin (HCC) POCT HEMOGLOBIN A1C Routine 04/06/2024 9 :05 AM CDT Type 2 diabetes mellitus with hyperglycemia, with long-term current use of insulin ([facility]) DIABETES EYE EXAM Routine 01/17/2024 8:11 AM [...] 04/06/2024 2:53 PM CDT us Haily Siddiqi [facility] LAB BLOOD ORDERABLES Asuncion l Result Performing Organization Address [facility] de Phone Number JOB [phone] [place] [address] * Albumin Creatinine Ratio, Urine (04/06/2024 9:50 AM CDT) Albumin Ur 27.5 mg/L Comment: Interpretive Data No reference range established. Current interpretive data was last revised 2018. Creatinine Ur 240.8 mg/dL [facility] Comment: Interpretive Data No reference range established. Current interpretive data was last revised 2018. Albumin Creatinine Ratio, Ur 11 1 - 29 mg/g [facility] Urine 04/06/2024 9:50 AM CDT 04/06/2024 2:41 PM CDT us Haily Siddiqi [employer] LAB URINE ORDERABLES Asuncion l Result Performing Organization Address [facility] Co de Phone Number [facility] [address] [address] Department of [place], [place] [id number] * Lipid panel (04/06/2024 9:50 AM CDT) [...] BLOOD ORDERABLES Asuncion l Result JOB REYES [phone] [address] [place] [address] * (ABNORMAL) POCT hemoglobin A1c (04/06/2024 9:05 AM CDT) Hemoglobin A1C, POC 8.7 4.0 - 5.6 % Blood 04/06/2024 9:05 AM CDT us Haily Siddiqi NP POINT OF CARE TEST ORDERA BLES Final Result * (ABNORMAL) DIABETES EYE EXAM (01/17/2024 8:11 AM CDT) Historical Provider HEALTH MAINTENANCE Final Result * Diabetic Foot Exam (12/12/2019) Result [facility] Historical Provider HEALTH MAINTENANCE Final Result * PSA screen (10/11/2017 11:35 AM CDT) SCRIBED PSA, Serum 1.5 0.0 - 4.0 [facility] Blood specimen (specimen) Result [facility] Historical Provider LAB BLOOD ORDERABLES Edit ed Result - Final [facility] from Last 3 Months or Most Recently Relevant to Health Maintenance Insurance [facility] CHOICE PLUS [facility] [place] [address] [facility] CHOICE PLUS [facility] CHOICE PLUS Advance Directives For more information, please contact: [phone] * Full Code (Latest Code Status on File) Date Activated Date Inactivated Comments 05/13/2021 5:01 PM 05/14/2021 2:11 PM Care Teams Installation Tech Relationship Specialty Start Date End Date Duran Montero MD [address] [facility] [address] [place] [address] PCP - General 09/24/16
--- OUTSIDE RECORDS SUMMARY | 2024-09-30 13:20 | XMS_ITS | Clinical Summary ---
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
[2024-09-30 13:47] LABS: Lipase 6896 U/L (23-300)
[2024-09-30] MEDS: SODIUM CHLORIDE 0.9% IV 1,000 ML 999 ML IV CONT (14:06)
[2024-09-30] MEDS: MORPHINE SULFATE (*CRX) 4 MG/ML INJ IV PUSH ×3 (14:07→23:13)
[2024-09-30 14:15] VITALS: BP 162/89; PULSE 94; RESP 18; O2SAT 100
[2024-09-30 14:26] LABS: Add Urine Microscopic? YES; Appearance Urine Clear (Clear); Bacteria Urine None Seen /hpf; Bilirubin Urine Negative (Negative); Blood Urine Negative (Negative); Color Urine Yellow (Yellow); Glucose Urine UA 2+ mg/dL (Negative); Ketones Urine Negative (Negative); Leukocyte Esterase Ur Negative LEU/UL (Negative); Nitrate Urine Negative (Negative); Non Pathogenic Casts 0-2; Protein Urine Trace mg/dL (Negative); RBC Urine 0-2 /hpf (0-2); Specific Grav Ur > 1.045 (1.001-1.035); Squamous Epithelial Cell Urine None Seen /hpf (Few); WBC Urine 0-5 /hpf (0-3); pH Urine 6.5 (5.0-9.0)
--- NOTE | 2024-09-30 14:26 | ED_ITS ---
HPI - Abdominal Pain General Chief Complaint: Abdominal Pain Stated Complaint: upper quadrant abd. pain x20 days Time Seen by Provider: 09/30/24 13:03 History of Present Illness HPI narrative: Patient is a 59-year-old male who presents the ER with epigastric pain. Ongoing over last 2 months. Was seen by a GI doctor at an endoscopy center and had an EGD last week. Diagnosed with gastric ulcer and placed on PPI. They report biopsies were taken but unknown line. Patient reports he continues to have worsening epigastric pain since the procedure. No vomiting or fever. Cannot identify aggravating or alleviating factors despite taking his medication. He reports mild constipation with last bowel movement 3 days ago. Related Data Home Medications ?Medication ?Instructions ?Recorded ?Confirmed ?Last Taken ?Type atorvastatin 20 mg tablet 20 mg PO DAILY 05/21/19 09/30/24 09/30/24 History metformin 1,000 mg tablet 1,000 mg PO BID 05/21/19 09/30/24 09/30/24 History glimepiride 2 mg tablet 2 mg PO DAILY 09/30/24 09/30/24 09/30/24 History insulin lispro 100 unit/mL 1 sliding scale dose subcut 09/30/24 09/30/24 09/30/24 History subcutaneous pen (Humalog KwikPen USEASDIRECTD (U-100) Insulin) latanoprost 0.005 % eye drops 1 drp EACH EYE QPM 09/30/24 09/30/24 09/29/24 History (Xalatan) timolol 0.25 % eye drops 1 drp EACH EYE Q12H 09/30/24 09/30/24 09/30/24 History Allergies Allergy/AdvReac Type Severity Reaction Status Date / Time dapagliflozin (From [facility]) AdvReac Mild Rash Verified 09/30/24 11:45 Penicillins AdvReac Mild Rash Verified 09/30/24 11:45 Review of Systems 2 Review of Systems: All systems reviewed & are unremarkable except as noted in HPI and below Constitutional: Constitutional: Reports no additional constitutional complaints ENT: Reports system reviewed and no additional complaints, except as documented Cardiovascular: Cardiovascular: Reports no additional cardiovascular complaints Respiratory: Respiratory: Reports no additional respiratory complaints Gastrointestinal: Gastrointestinal: Reports no additional gastrointestinal complaints PMFSH Past Medical History Medical History Diabetes Left shoulder pain Right shoulder pain DJD of shoulder Bilateral shoulder pain Trochanteric bursitis of left hip Left hip pain Other fatigue Type 2 diabetes mellitus without complications Surgical History Surgical History H/O total shoulder replacement History of repair of right rotator cuff H/O total hip arthroplasty Family History Family History Father Family history of lung cancer Patient's father is Mother Cerebrovascular accident Patient's mother is Other Diabetes mellitus Family history of arthritis Social History Social History Smoking status: Never smoker Second hand tobacco smoke exposure: No Alcohol intake: current Alcohol use details: on occasion Substance use: never Substance use type: does not use Lack of Transportation: No Lack of Food: Never True Current Housing: I Have Housing Concerned About Future Housing: No Difficulty Paying Gas/Electric Bills: No Difficulty Paying for Meds: No Currently Unemployed: No Education: Master's Degree or Higher Difficulty w/ Childcare or Family Care: No Living arrangements: with family Gender identity (if verbalized by the patient): Male Spiritual care concerns: No Exam 2 Narrative: GENERAL: Well-appearing, morbidly obese, and in no acute distress. HEAD: Normocephalic, atraumatic. ENT: Mucous membranes moist. NECK: Supple. CHEST: Clear to auscultation. No respiratory distress. HEART: Regular rate and rhythm. Normal peripheral pulses. ABDOMEN: Soft, mild epigastric tenderness without guarding, nondistended. EXTREMITIES: Normal range of motion. No edema. SKIN: Warm, dry, no rash. NEURO: Alert and oriented x3. PSYCH: Normal mood and affect. Course Course Emergency Course: 1449: Patient informed of results. Discussed seriousness of condition. NPO. Start on maintenance fluids. Discussed with hepatobiliary, Dr. Montes De Oca, at [facility]. Accepted for transfer. 1729: Awaiting a hospital bed, will give him a more comfortable bed here and also provide scheduled pain and nausea medication. 1902 on 10/01/24: No issues during my care today. Still waiting a bed and they are hopeful that he will get 1. Lipase trending down. Started patient on clear liquid diet and restarted home medications and sliding scale insulin. Care transferred to Dr. Acevedo. 1510 on 10/02/24: Discussed with Dr. Montes De Oca, recommend bx of liver as bx of pancreas many cause pancreatitis to reoccur. Would like to be contacted with results to help facilitate onc care. Dr. Cnodon also aware of tx plan, accepted by hospitalist for bx here. Start low fat diet but NPO at midnight. Vital Signs Vital signs: Vital Signs Temperature 97.5 F L 09/30/24 12:01 Pulse Rate 86 09/30/24 12:01 Respiratory Rate 15 09/30/24 12:01 Blood Pressure 145/68 H 09/30/24 12:01 Pulse Oximetry 98 09/30/24 12:01 Temperature 98.0 F 10/02/24 14:36 Pulse Rate 87 10/02/24 14:36 Respiratory Rate 18 10/02/24 14:36 Blood Pressure 100/48 L 10/02/24 14:36 Pulse Oximetry 100 10/02/24 14:36 MDM - Abdominal Pain Lab Data 10/02/24 11:20 10/02/24 11:20 Labs: Lab Results 09/30/24 09/30/24 09/30/24 Range/Units 13:00 13:05 14:12 WBC 9.6 (4.5-10.0) K/mm3 RBC 4.35 L (4.6-6.20) M/mm3 Hgb 12.2 L (14.0-18.0) g/dL Hct 36.7 L (42.0-52.0) % MCV 84.4 (80-100) fl MCH 28.0 (26-34) pg MCHC 33.2 (32-36) g/dl RDW 12.6 (11.5-14.5) % Plt Count 350 D (150-375) k/mm3 MPV 8.9 (7.4-10.4) fl Immature Gran % (Auto) 0.4 (0-0.5) % Neut % (Auto) 83.7 H (45.5-73.1) % Lymph % (Auto) 6.2 L (18.3-44.2) % [place] % (Auto) 9.0 H (2.6-8.5) % Eos % (Auto) 0.4 (0-4.4) % Baso % (Auto) 0.3 (0.2-1.2) % Lymph # (Auto) 0.60 L (0.9-3.2) K/mm3 [place] # (Auto) 0.9 H (0.1-0.6) K/mm3 Eos # (Auto) 0.0 (0-0.3) K/mm3 Baso # (Auto) 0.0 (0.0-0.1) K/mm3 Abs Immat Gran (auto) 0.04 H (0.00-0.031) K/mm3 Absolute Neuts (auto) 8.0 H (1.3-6.7) K/mm3 Absolute Nucleated RBC 0.000 (0.0-0.012) K/mm3 Nucleated RBC % 0.0 (0.0-0.2) % Sodium 132 L (137-145) mmol/L Potassium 4.1 (3.4-5.0) mmol/L Chloride 93 L (98-107) mmol/L Carbon Dioxide 32 H (22-30) mmol/L Anion Gap 7 (4-12) mmol/L BUN 12 (9-20) mg/dL Creatinine 0.83 1.00 (0.7-1.3) mg/dL Estim Creat Clear Calc 109 92 ml/min Estimated GFR > 60 > 60 (59 - ) Glucose 305 H (65-110) mg/dL POC Capillary Glucose (65-105) mg/dl Lactic Acid 1.8 (0.7-2.0) mmol/L Calcium 9.3 (8.4-10.2) mg/dL Total Bilirubin 0.8 (0.2-1.3) mg/dL AST 80 H (17-59) U/L ALT 49 (6-50) U/L Alkaline Phosphatase 216 H (38-126) U/L Total Protein 8.0 (6.3-8.2) g/dL Albumin 4.0 (3.5-5.1) g/dL Lipase 6896 H (23-300) U/L Urine Color Yellow (Yellow) Urine Appearance Clear (Clear) Urine pH 6.5 (5.0-9.0) Ur Specific [place] > 1.045 H (1.001-1.035) Urine Protein Trace (Negative) mg/dL Urine Glucose (UA) 2+ H (Negative) mg/dL Urine Ketones Negative (Negative) mg/dL Ur Blood (Man) Negative (Negative) Urine Nitrate Negative (Negative) Urine Bilirubin Negative (Negative) Urine Urobilinogen 1.0 (<2.0) mg/dL Leukocyte Esterase Rfl Negative (Negative) ZAKI/UL Urine RBC 0-2 (0-2) /hpf Urine WBC 0-5 (0-3) /hpf Ur Squamous Epith Cells None seen (Few) /hpf Urine Bacteria None seen /hpf Urine Casts 0-2 10/01/24 10/01/24 10/01/24 Range/Units 06:46 15:11 16:10 WBC 9.0 (4.5-10.0) K/mm3 RBC 3.72 L (4.6-6.20) M/mm3 Hgb 10.4 L (14.0-18.0) g/dL Hct 32.1 L (42.0-52.0) % MCV 86.3 (80-100) fl MCH 28.0 (26-34) pg MCHC 32.4 (32-36) g/dl RDW 12.8 (11.5-14.5) % Plt Count 266 (150-375) k/mm3 MPV 8.7 (7.4-10.4) fl Immature Gran % (Auto) 0.4 (0-0.5) % Neut % (Auto) 82.5 H (45.5-73.1) % Lymph % (Auto) 6.1 L (18.3-44.2) % [place] % (Auto) 10.5 H (2.6-8.5) % Eos % (Auto) 0.2 (0-4.4) % Baso % (Auto) 0.3 (0.2-1.2) % Lymph # (Auto) 0.55 L (0.9-3.2) K/mm3 [place] # (Auto) 0.9 H (0.1-0.6) K/mm3 Eos # (Auto) 0.0 (0-0.3) K/mm3 Baso # (Auto) 0.0 (0.0-0.1) K/mm3 Abs Immat Gran (auto) 0.04 H (0.00-0.031) K/mm3 Absolute Neuts (auto) 7.4 H (1.3-6.7) K/mm3 Absolute Nucleated RBC 0.000 (0.0-0.012) K/mm3 Nucleated RBC % 0.0 (0.0-0.2) % Sodium 132 L (137-145) mmol/L Potassium 4.1 (3.4-5.0) mmol/L Chloride 98 (98-107) mmol/L Carbon Dioxide 27 (22-30) mmol/L Anion Gap 7 (4-12) mmol/L BUN 11 (9-20) mg/dL Creatinine 0.74 (0.7-1.3) mg/dL Estim Creat Clear Calc 122 ml/min Estimated GFR > 60 (59 - ) Glucose 277 H (65-110) mg/dL POC Capillary Glucose 339 H 287 H (65-105) mg/dl Lactic Acid (0.7-2.0) mmol/L Calcium 8.3 L (8.4-10.2) mg/dL Total Bilirubin 0.9 (0.2-1.3) mg/dL AST 45 (17-59) U/L ALT 37 (6-50) U/L Alkaline Phosphatase 176 H (38-126) U/L Total Protein 6.0 L (6.3-8.2) g/dL Albumin 3.3 L (3.5-5.1) g/dL Lipase 941 H (23-300) U/L Urine Color (Yellow) Urine Appearance (Clear) Urine pH (5.0-9.0) Ur Specific [place] (1.001-1.035) Urine Protein (Negative) mg/dL Urine Glucose (UA) (Negative) mg/dL Urine Ketones (Negative) mg/dL Ur Blood (Man) (Negative) Urine Nitrate (Negative) Urine Bilirubin (Negative) Urine Urobilinogen (<2.0) mg/dL Leukocyte Esterase Rfl (Negative) ZAKI/UL Urine RBC (0-2) /hpf Urine WBC (0-3) /hpf Ur Squamous Epith Cells (Few) /hpf Urine Bacteria /hpf Urine Casts 10/01/24 10/01/24 10/02/24 Range/Units 17:38 21:07 08:23 WBC (4.5-10.0) K/mm3 RBC (4.6-6.20) M/mm3 Hgb (14.0-18.0) g/dL Hct (42.0-52.0) % MCV (80-100) fl MCH (26-34) pg MCHC (32-36) g/dl RDW (11.5-14.5) % Plt Count (150-375) k/mm3 MPV (7.4-10.4) fl Immature Gran % (Auto) (0-0.5) % Neut % (Auto) (45.5-73.1) % Lymph % (Auto) (18.3-44.2) % [place] % (Auto) (2.6-8.5) % Eos % (Auto) (0-4.4) % Baso % (Auto) (0.2-1.2) % Lymph # (Auto) (0.9-3.2) K/mm3 [place] # (Auto) (0.1-0.6) K/mm3 Eos # (Auto) (0-0.3) K/mm3 Baso # (Auto) (0.0-0.1) K/mm3 Abs Immat Gran (auto) (0.00-0.031) K/mm3 Absolute Neuts (auto) (1.3-6.7) K/mm3 Absolute Nucleated RBC (0.0-0.012) K/mm3 Nucleated RBC % (0.0-0.2) % Sodium (137-145) mmol/L Potassium (3.4-5.0) mmol/L Chloride (98-107) mmol/L Carbon Dioxide (22-30) mmol/L Anion Gap (4-12) mmol/L BUN (9-20) mg/dL Creatinine (0.7-1.3) mg/dL Estim Creat Clear Calc ml/min Estimated GFR (59 - ) Glucose (65-110) mg/dL POC Capillary Glucose 277 H 255 H 228 H (65-105) mg/dl Lactic Acid (0.7-2.0) mmol/L Calcium (8.4-10.2) mg/dL Total Bilirubin (0.2-1.3) mg/dL AST (17-59) U/L ALT (6-50) U/L Alkaline Phosphatase (38-126) U/L Total Protein (6.3-8.2) g/dL Albumin (3.5-5.1) g/dL Lipase (23-300) U/L Urine Color (Yellow) Urine Appearance (Clear) Urine pH (5.0-9.0) Ur Specific [place] (1.001-1.035) Urine Protein (Negative) mg/dL Urine Glucose (UA) (Negative) mg/dL Urine Ketones (Negative) mg/dL Ur Blood (Man) (Negative) Urine Nitrate (Negative) Urine Bilirubin (Negative) Urine Urobilinogen (<2.0) mg/dL Leukocyte Esterase Rfl (Negative) ZAKI/UL Urine RBC (0-2) /hpf Urine WBC (0-3) /hpf Ur Squamous Epith Cells (Few) /hpf Urine Bacteria /hpf Urine Casts 10/02/24 10/02/24 Range/Units 11:20 12:48 WBC 9.1 (4.5-10.0) K/mm3 RBC 3.79 L (4.6-6.20) M/mm3 Hgb 10.5 L (14.0-18.0) g/dL Hct 32.6 L (42.0-52.0) % MCV 86.0 (80-100) fl MCH 27.7 (26-34) pg MCHC 32.2 (32-36) g/dl RDW 12.7 (11.5-14.5) % Plt Count 277 (150-375) k/mm3 MPV 8.9 (7.4-10.4) fl Immature Gran % (Auto) 0.5 (0-0.5) % Neut % (Auto) 82.6 H (45.5-73.1) % Lymph % (Auto) 8.0 L (18.3-44.2) % [place] % (Auto) 8.4 (2.6-8.5) % Eos % (Auto) 0.3 (0-4.4) % Baso % (Auto) 0.2 (0.2-1.2) % Lymph # (Auto) 0.73 L (0.9-3.2) K/mm3 [place] # (Auto) 0.8 H (0.1-0.6) K/mm3 Eos # (Auto) 0.0 (0-0.3) K/mm3 Baso # (Auto) 0.0 (0.0-0.1) K/mm3 Abs Immat Gran (auto) 0.05 H (0.00-0.031) K/mm3 Absolute Neuts (auto) 7.5 H (1.3-6.7) K/mm3 Absolute Nucleated RBC 0.000 (0.0-0.012) K/mm3 Nucleated RBC % 0.0 (0.0-0.2) % Sodium 132 L (137-145) mmol/L Potassium 4.1 (3.4-5.0) mmol/L Chloride 100 (98-107) mmol/L Carbon Dioxide 24 (22-30) mmol/L Anion Gap 8 (4-12) mmol/L BUN 9 (9-20) mg/dL Creatinine 0.79 (0.7-1.3) mg/dL Estim Creat Clear Calc 114 ml/min Estimated GFR > 60 (59 - ) Glucose 248 H (65-110) mg/dL POC Capillary Glucose 214 H (65-105) mg/dl Lactic Acid (0.7-2.0) mmol/L Calcium 8.4 (8.4-10.2) mg/dL Total Bilirubin 1.2 (0.2-1.3) mg/dL AST 34 (17-59) U/L ALT 35 (6-50) U/L Alkaline Phosphatase 198 H (38-126) U/L Total Protein 7.0 (6.3-8.2) g/dL Albumin 3.3 L (3.5-5.1) g/dL Lipase 319 H (23-300) U/L Urine Color (Yellow) Urine Appearance (Clear) Urine pH (5.0-9.0) Ur Specific [place] (1.001-1.035) Urine Protein (Negative) mg/dL Urine Glucose (UA) (Negative) mg/dL Urine Ketones (Negative) mg/dL Ur Blood (Man) (Negative) Urine Nitrate (Negative) Urine Bilirubin (Negative) Urine Urobilinogen (<2.0) mg/dL Leukocyte Esterase Rfl (Negative) ZAKI/UL Urine RBC (0-2) /hpf Urine WBC (0-3) /hpf Ur Squamous Epith Cells (Few) /hpf Urine Bacteria /hpf Urine Casts Imaging Data Radiologist's impression: ITS Impressions Abdomen CT 09/30/24 13:47 IMPRESSION: 1. Multiple masses in the liver which are most likely metastatic, but primary liver tumor cannot be excluded. 2. Mass in the head of the pancreas suggestive of malignant mass. MRI evaluation advised. 3. Left adrenal mass which is most likely metastatic. 4. Constipation. Discharge Plan Discharge Clinical Impression: Mass of head of pancreas, Liver masses, Adrenal mass, left, Pancreatitis Patient Disposition: Still a Patient Condition: Stable Patient Language: Citizen Of [place] Prescriptions: No Action metformin 1,000 mg tablet 1,000 mg PO BID atorvastatin 20 mg tablet 20 mg PO DAILY insulin lispro [Humalog KwikPen Insulin] 100 unit/mL insulin pen 1 sliding scale dose subcut USEASDIRECTD glimepiride 2 mg tablet 2 mg PO DAILY timolol 0.25 % drops 1 drp EACH EYE Q12H latanoprost [Xalatan] 0.005 % drops 1 drp EACH EYE QPM insulin glargine-yfgn [Semglee(insulin glarg-yfgn)Pen] 100 unit/mL (3 mL) insulin pen 80 unit subcut DAILY Qty: 75 1RF valsartan-hydrochlorothiazide [Diovan HCT] 160-25 mg tablet 1 tablet PO DAILY Qty: 90 2RF Follow-up/Referrals: Vu Condon DO [Primary Care Provider] -
[2024-09-30 14:49] LABS: Estimated CRCL calculation 92 ml/min; Estimated Glomerular Filt Rate > 60
[2024-09-30] MEDS: SODIUM CHLORIDE 0.9% IV 1,000 ML 175 ML IV CONT (17:06)
[2024-09-30 17:09] VITALS: BP 127/73; PULSE 89; RESP 18; O2SAT 98
[2024-09-30] MEDS: ONDANSETRON INJ 4 MG/2 ML VIAL IV PUSH ×2 (18:12→23:14)
[2024-09-30 18:15] VITALS: BP 128/81; PULSE 94; RESP 18; O2SAT 99
[2024-09-30 23:14] VITALS: BP 127/74; PULSE 98; RESP 16; O2SAT 98
[2024-09-30] MEDS: SODIUM CHLORIDE 0.9% IV 1,000 ML 175 ML (23:14)
[2024-10-01] VITALS (7 sets, daily range): BP systolic 106–142; BP diastolic 32–79; PULSE 82–97; RESP 14–18; TEMP 36.4–37.1; O2SAT 95–100
[2024-10-01] MEDS: SODIUM CHLORIDE 0.9% IV 1,000 ML 175 ML (05:16)
--- NOTE | 2024-10-01 05:17 | PC.NURSE ---
patient blood sugar is 265 at bedside per free style wanda
[2024-10-01 06:52] LABS: Basophils Percent Auto 0.3 % (0.2-1.2); Eosinophils Percent Auto 0.2 % (0-4.4); Hematocrit 32.1 % (42.0-52.0); Hemoglobin 10.4 g/dL (14.0-18.0); Immature Granulocyte Absolute 0.04 K/mm3 (0.00-0.031); Immature Granulocyte Percent A 0.4 % (0-0.5); Lymphocytes Absolute Auto 0.55 K/mm3 (0.9-3.2); Lymphocytes Percent Auto 6.1 % (18.3-44.2); Mean Corpuscular HGB Conc 32.4 g/dl (32-36); Mean Corpuscular Volume 86.3 fl (80-100); Mean Platelet Volume 8.7 fl (7.4-10.4); Monocytes Absolute Auto 0.9 K/mm3 (0.1-0.6); Monocytes Percent Auto 10.5 % (2.6-8.5); Neutrophils Absolute Auto 7.4 K/mm3 (1.3-6.7); Neutrophils Percent Auto 82.5 % (45.5-73.1); Platelet Count Result 266 k/mm3 (150-375); Red Blood Count 3.72 M/mm3 (4.6-6.20); Red Cell Distribution Width 12.8 % (11.5-14.5)
[2024-10-01 07:03] LABS: Alanine Aminotransferase 37 U/L (6-50); Albumin Level 3.3 g/dL (3.5-5.1); Alkaline Phosphatase 176 U/L (38-126); Anion Gap 7 mmol/L (4-12); Aspartate Amino Transferase 45 U/L (17-59); Bilirubin,Total 0.9 mg/dL (0.2-1.3); Blood Urea Nitrogen 11 mg/dL (9-20); Calcium 8.3 mg/dL (8.4-10.2); Carbon Dioxide 27 mmol/L (22-30); Chloride 98 mmol/L (98-107); Estimated CRCL calculation 122 ml/min; Estimated Glomerular Filt Rate > 60; Glucose 277 mg/dL (65-110); Lipase 941 U/L (23-300); Potassium 4.1 mmol/L (3.4-5.0); Sodium 132 mmol/L (137-145)
--- NOTE | 2024-10-01 07:57 | PC.NURSE ---
Spoke with Maisha from [facility] transfer center for update. No beds available at this time
[2024-10-01] MEDS: SODIUM CHLORIDE 0.9% IV 1,000 ML 125 ML IV CONT ×2 (11:16→19:19)
--- NOTE | 2024-10-01 13:11 | PC.NURSE ---
Lunch tray ordered for patient after verbal order given for clear liquid diet from provider
[2024-10-01 15:15] LABS: Glucose Point of Care 339 mg/dl (65-105)
[2024-10-01] MEDS: MORPHINE SULFATE (*CRX) 4 MG/ML INJ IV PUSH ×2 (15:30→20:16)
[2024-10-01] MEDS: INSULIN ASPART (*BKC) 100 UNITS/ML SUB-Q ×2 (15:38→21:25)
[2024-10-01 16:13] LABS: Glucose Point of Care 287 mg/dl (65-105)
--- NOTE | 2024-10-01 16:38 | PC.NURSE ---
dinner tray ordered for patient
[2024-10-01] MEDS: metFORMIN HCL XR 500 MG TAB.SR.24H 1000 MG PO (17:05)
--- NOTE | 2024-10-01 17:07 | PC.NURSE ---
Home medications confirmed with patient prior to giving. Patient confirmed his metformin was extended release.
[2024-10-01 17:40] LABS: Glucose Point of Care 277 mg/dl (65-105)
--- NOTE | 2024-10-01 18:44 | PC.NURSE ---
Patient ambulated to the restroom with steady gate
[2024-10-01 21:12] LABS: Glucose Point of Care 255 mg/dl (65-105)
--- NOTE | 2024-10-01 21:17 | PC.NURSE ---
This RN spoke with Olya from [facility]. Update on pt provided and VS updated to RN. Pt still awaiting bed placement.
[2024-10-02] VITALS (11 sets, daily range): BP systolic 100–123; BP diastolic 42–73; PULSE 79–88; RESP 16–20; TEMP 36.6–37; O2SAT 93–100; BMI 43.7
[2024-10-02] MEDS: MORPHINE SULFATE (*CRX) 4 MG/ML INJ IV PUSH ×3 (02:03→14:11)
[2024-10-02] MEDS: SODIUM CHLORIDE 0.9% IV 1,000 ML 125 ML IV CONT ×2 (03:11→20:07)
--- NOTE | 2024-10-02 07:21 | PC.NURSE ---
Assumed care of pt. Pt resting with reg resp.
--- NOTE | 2024-10-02 07:53 | PC.NURSE ---
Pt awake, denies need for Morphine at this time. Breakfast tray ordered per diet order. Informed pt & given update on transfer, instructed RN will inform as soon as more information is obtained.
[2024-10-02 08:25] LABS: Glucose Point of Care 228 mg/dl (65-105)
[2024-10-02] MEDS: INSULIN ASPART (*BKC) 100 UNITS/ML SUB-Q ×3 (08:28→21:26)
[2024-10-02] MEDS: GLIMEPIRIDE 2 MG TABLET PO (09:22)
--- NOTE | 2024-10-02 09:27 | PC.NURSE ---
Pharmacy called for morning meds. RN spoke with Chelle méndez send meds
[2024-10-02] MEDS: VALSARTAN 160 MG TABLET PO (09:59)
[2024-10-02] MEDS: ATORVASTATIN 20 MG TABLET PO (09:59)
[2024-10-02] MEDS: metFORMIN HCL XR 500 MG TAB.SR.24H 1000 MG PO ×2 (09:59→17:14)
--- NOTE | 2024-10-02 10:15 | PC.NURSE ---
spoke to [facility] transfer center at this time. gave an update on pt status. transfer center said no bed yet but will give us a call when they have it
[2024-10-02 11:30] LABS: Basophils Percent Auto 0.2 % (0.2-1.2); Eosinophils Percent Auto 0.3 % (0-4.4); Hematocrit 32.6 % (42.0-52.0); Hemoglobin 10.5 g/dL (14.0-18.0); Immature Granulocyte Absolute 0.05 K/mm3 (0.00-0.031); Immature Granulocyte Percent A 0.5 % (0-0.5); Lymphocytes Absolute Auto 0.73 K/mm3 (0.9-3.2); Mean Corpuscular HGB Conc 32.2 g/dl (32-36); Mean Corpuscular Hemoglobin 27.7 pg (26-34); Mean Platelet Volume 8.9 fl (7.4-10.4); Monocytes Absolute Auto 0.8 K/mm3 (0.1-0.6); Monocytes Percent Auto 8.4 % (2.6-8.5); Neutrophils Absolute Auto 7.5 K/mm3 (1.3-6.7); Neutrophils Percent Auto 82.6 % (45.5-73.1); Platelet Count Result 277 k/mm3 (150-375); Red Blood Count 3.79 M/mm3 (4.6-6.20); Red Cell Distribution Width 12.7 % (11.5-14.5); White Blood Count 9.1 K/mm3 (4.5-10.0)
[2024-10-02 11:46] LABS: Alanine Aminotransferase 35 U/L (6-50); Albumin Level 3.3 g/dL (3.5-5.1); Alkaline Phosphatase 198 U/L (38-126); Anion Gap 8 mmol/L (4-12); Aspartate Amino Transferase 34 U/L (17-59); Bilirubin,Total 1.2 mg/dL (0.2-1.3); Blood Urea Nitrogen 9 mg/dL (9-20); Calcium 8.4 mg/dL (8.4-10.2); Carbon Dioxide 24 mmol/L (22-30); Chloride 100 mmol/L (98-107); Estimated CRCL calculation 114 ml/min; Estimated Glomerular Filt Rate > 60; Glucose 248 mg/dL (65-110); Lipase 319 U/L (23-300); Potassium 4.1 mmol/L (3.4-5.0); Sodium 132 mmol/L (137-145)
[2024-10-02 12:51] LABS: Glucose Point of Care 214 mg/dl (65-105)
--- NOTE | 2024-10-02 14:42 | PC.NURSE ---
1400 clear Liquid lunch tray given.
--- NOTE | 2024-10-02 15:30 | PM.IMHP ---
H&P: HPI History of Present Illness Date/Time: 10/02/24 15:30 Chief Complaint: Abdominal pain. Narrative: This is a 59-year-old male with history of sleep apnea on CPAP, dyslipidemia, type 2 diabetes mellitus, Valerio esophagus, peptic ulcer, and colon polyps who presented to the emergency department via private vehicle late morning on 09/30/2024 with complaints of abdominal pain. He gives a 3 week history of upper abdominal pain which he describes as a constant, pressure-like sensation. He has also had some bloating as well. Last week he had an upper endoscopy at which time he was reportedly diagnosed with a gastric ulcer and pathology came back showing Findings and treatment plan were discussed with the patient. Questions were solicited and answered to satisfaction. The patient's medical management will be taken over by the hospitalist team in a.m. of Valeiro esophagus. He was prescribed a PPI but he has not had any relief with his symptoms. In fact the pain seems to be getting worse. He does not recognize any significant alleviating factors but has noticed that food seems to make it a bit worse. He also reports mild constipation with his last bowel movement being about 3 days ago. He denies fever, vomiting, melena, hematochezia, chest pain, shortness of breath, and weight loss. In the ED: Vital signs have been stable since arrival. Labs on presentation include a WBC count of 9.6, hemoglobin 12.2, sodium 132, chloride 93, carbon dioxide 32, BUN 12, creatinine 0.83, glucose 305, total bilirubin 0.8, AST 80, ALT 40, alkaline phosphatase 216, lipase 6896. CT of the abdomen and pelvis showed multiple masses in the liver which are most likely metastatic, a mass in the head of the pancreas suggestive of malignant mass, left adrenal mass which is most likely metastatic, and findings of constipation. He did requests transfer to [place] and was accepted by either hepatobiliary team as he will likely need an endoscopic ultrasound biopsy. A bed has not yet become available and he has been in the emergency department for the last 2 and half days. The ED physician today spoke with Dr. Heidi Montes De Oca who recommends admitting the patient to [place] for biopsy of 1 of the liver mass and they will follow up with the patient as an outpatient. He continues to have abdominal discomfort and is requiring frequent IV morphine. He has been consuming clear liquids and is also receiving IV fluid rehydration. Lipase is trending down. Review of Systems Review of Systems: 12 systems were reviewed and are negative except for as per HPI. [facility] Past Medical History Medical History (Updated 10/02/24 @ 20:48 by Nayana Amos PA-C) Osteoarthritis Valerio esophagus Peptic ulcer Dyslipidemia Obstructive sleep apnea on CPAP Insulin dependent type 2 diabetes mellitus Surgical History Surgical History (Updated 10/02/24 @ 20:48 by Nayana Amos PA-C) History of arthroplasty of left shoulder History of total left hip arthroplasty History of repair of right rotator cuff Family History Family History Father Family history of lung cancer Patient's father is Mother Cerebrovascular accident Patient's mother is Other Diabetes mellitus Family history of arthritis Social History Social History (Updated 10/02/24 @ 20:49 by Nayana Amos PA-C) Social History: Surrogate medical decision maker: Taisha Foster, spouse. Code status: Full code. Smoking status: Never smoker Second hand tobacco smoke exposure: No Alcohol intake: current Drinks per week: 1 Alcohol use details: on occasion Substance use: never Substance use type: does not use Do You Feel Safe in your Home?: Yes Lack of Transportation: No Lack of Food: Never True Current Housing: I Have Housing Concerned About Future Housing: No Difficulty Paying Gas/Electric Bills: No Difficulty Paying for Meds: No Currently Unemployed: No Education: Master's Degree or Higher Difficulty w/ Childcare or Family Care: No Living arrangements: with family Additional living arrangements comments: Lives with spouse in [place]. 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 Spiritual care concerns: No Meds Home Medications and Allergies Home Medications ?Medication ?Instructions ?Recorded ?Confirmed ?Type atorvastatin 20 mg tablet 20 mg PO DAILY 05/21/19 09/30/24 History metformin 1,000 mg tablet 1,000 mg PO BID 05/21/19 09/30/24 History Semglee(insulin glarg-yfgn)Pen 100 80 unit (0.8 mL) subcut DAILY #75 07/16/22 09/30/24 Rx unit/mL (3 mL) subcutaneous mL (insulin glargine-yfgn) valsartan 160 1 tablet PO DAILY #90 tabs 05/18/24 09/30/24 Rx mg-hydrochlorothiazide 25 mg tablet (Diovan HCT) glimepiride 2 mg tablet 2 mg PO DAILY 09/30/24 09/30/24 History insulin lispro 100 unit/mL 1 sliding scale dose subcut 09/30/24 09/30/24 History subcutaneous pen (Humalog KwikPen USEASDIRECTD (U-100) Insulin) latanoprost 0.005 % eye drops 1 drp EACH EYE QPM 09/30/24 09/30/24 History (Xalatan) timolol 0.25 % eye drops 1 drp EACH EYE Q12H 09/30/24 09/30/24 History Allergies Allergy/AdvReac Type Severity Reaction Status Date / Time dapagliflozin (From [facility]) AdvReac Mild Rash Verified 10/02/24 16:15 Penicillins AdvReac Mild Rash Verified 10/02/24 16:15 Vital Signs Vital Signs - 24 hr 10/01/24 18:23 10/01/24 19:23 10/01/24 21:49 Temperature Pulse Rate 86 90 89 Respiratory Rate 16 16 16 Blood Pressure 106/32 L 106/32 L 130/68 Pulse Oximetry 98 98 98 10/01/24 23:23 10/02/24 01:00 10/02/24 03:06 Temperature 97.6 F 98.4 F 98.1 F Pulse Rate 97 81 82 Respiratory Rate 14 16 16 Blood Pressure 118/60 119/72 121/55 L Pulse Oximetry 95 97 98 10/02/24 05:20 10/02/24 06:58 10/02/24 07:55 Temperature 97.8 F Pulse Rate 79 80 86 Respiratory Rate 16 16 16 Blood Pressure 119/60 123/63 123/63 Pulse Oximetry 96 98 100 10/02/24 14:36 Temperature 98.0 F Pulse Rate 87 Respiratory Rate 18 Blood Pressure 100/48 L Pulse Oximetry 100 Exam Narrative: General: Well-developed, nontoxic-appearing male supine in bed in no acute distress. Weight: 134.5 kg. BMI: 43.8. HEENT: PERRL, EOMI. Sclera anicteric. Tacky mucous membranes. Oropharynx is crowded. Neck: Supple. Limited due to neck circumference. Respiratory: Lungs are clear to auscultation bilaterally. Cardiovascular: Regular rate and rhythm with S1-S2. Gastrointestinal: Abdomen is soft and nondistended with positive bowel sounds. He is tender to palpation throughout the upper abdomen. No guarding or rebound tenderness. Skin: Warm and dry. No rash or lesions on limited exam. Extremities: No cyanosis, clubbing, or edema. Radial and pedal pulses intact. Neurological: Alert. Cranial nerves 2-12 are grossly intact. No gross focal deficits to casual conversation. Psychiatric: Pleasant and cooperative with normal mood and affect. Judgment and insight intact. H&P: Results Labs Labs: Short CBC 10/02/24 Range/Units 11:20 WBC 9.1 (4.5-10.0) K/mm3 Hgb 10.5 L (14.0-18.0) g/dL Hct 32.6 L (42.0-52.0) % Plt Count 277 (150-375) k/mm3 BMP 10/02/24 11:20 Sodium 132 L Potassium 4.1 Chloride 100 Carbon Dioxide 24 BUN 9 Creatinine 0.79 Glucose 248 H Calcium 8.4 Liver Function 10/02/24 Range/Units 11:20 Total Bilirubin 1.2 (0.2-1.3) mg/dL AST 34 (17-59) U/L ALT 35 (6-50) U/L Alkaline Phosphatase 198 H (38-126) U/L Albumin 3.3 L (3.5-5.1) g/dL ITS Impressions Abdomen CT 09/30/24 13:47 IMPRESSION: 1. Multiple masses in the liver which are most likely metastatic, but primary liver tumor cannot be excluded. 2. Mass in the head of the pancreas suggestive of malignant mass. MRI evaluation advised. 3. Left adrenal mass which is most likely metastatic. 4. Constipation. Assessment and Plan Assessment and plan (1) Mass of head of pancreas: Code(s): K86.89 - Other specified diseases of pancreas Status: Acute (2) Liver masses: Code(s): R16.0 - Hepatomegaly, not elsewhere classified Status: Acute (3) Peptic ulcer: Code(s): K27.9 - Peptic ulcer, site unspecified, unspecified as acute or chronic, without hemorrhage or perforation Status: Acute (4) Adrenal mass, left: Code(s): E27.8 - Other specified disorders of adrenal gland Status: Acute (5) Valerio esophagus: Code(s): K22.70 - Valerio's esophagus without dysplasia Status: Acute (6) Pancreatitis: Code(s): K85.90 - Acute pancreatitis without necrosis or infection, unspecified Status: Acute (7) Insulin dependent type 2 diabetes mellitus: Code(s): E11.9 - Type 2 diabetes mellitus without complications; Z79.4 - 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 Labs, imaging, EKG, and all reports were personally reviewed. Recent endoscopy done in outside facility showed evidence of peptic ulcers and Valerio esophagus for which he was prescribed a PPI however that has not been of any benefit. Unfortunately CT scan shows a mass in the head of the pancreas as well as multiple liver masses and a left adrenal mass concerning for metastatic disease and is being admitted for a liver biopsy. Depending on pathology results he may or may not need an endoscopic ultrasound biopsy. Lipase was over 6000 on arrival and may be due to recent endoscopy and peptic ulcers or even the mass itself. Liver enzymes are not consistent with obstruction. Continue analgesics as needed. Advance diet as tolerated from clear liquids to a low-fat diet. He will be NPO after midnight for biopsy tomorrow. Continue PPI for recent diagnosis of peptic ulcer and Valerio esophagus. Continue basal insulin. Initiate sliding scale insulin, Accu-Cheks, and hypoglycemic protocol. CPAP will be provided for the patient to use while hospitalized. His home medications will be reviewed and resumed as appropriate. Findings and treatment plan were discussed with the patient and his . Questions were solicited and answered to satisfaction. The patient's medical management will be taken over by the hospitalist team in a.m. Quality VTE Prophylaxis VTE prophylaxis: mechanical ordered If No VTE Prophylaxis Answer both mechanical and pharmacologic: Reason no pharmacologic proph: medical contraindication (liver biopsy tomorrow) The patient has been admitted under observation status. Hospitalist MIPS Advance Care Plan I have confirmed that the patient's Advanced Care Plan is present, code status is documented, or surrogate decision maker is listed in patient medical record.: Yes Medication Reconciliation I have utilized all available resources to obtain, update and review the patients current medications (includes all prescriptions, OTC, herbals, cannabis, and nutritional supplements).: Yes
--- NOTE | 2024-10-02 16:02 | ADMGEN ---
This patient, Oc Foster, was admitted to Medical Room 347-. Patient/family oriented to hospital policies and general routines including ID bracelet, bed and alarms, visiting hours, pain management, procedures, bathroom and other care routines, personal items, smoking policy, room service/diet, and visiting hours. Information on how to activate the Rapid Response Team has been discussed. Patient/Family are encouraged to report perceived risks to care and to ask questions if they do not understand what they are told or what they should do.
[2024-10-02 16:58] LABS: Glucose Point of Care 185 mg/dl (65-105)
[2024-10-02] MEDS: HYDROcodone/acetaminophen (*CRX) 5-325 MG TABLET 1 TAB PO (18:11)
[2024-10-02 21:00] LABS: Glucose Point of Care 295 mg/dl (65-105)
[2024-10-02] MEDS: PANTOPRAZOLE 40 MG TABLET PO (21:26)
[2024-10-02] MEDS: TIMOLOL MALEATE 0.25% OP SOLN 5 ML BOTTLE 1 DROP EACH EYE (21:26)
[2024-10-03 01:00] VITALS: O2SAT 96
[2024-10-03] MEDS: MORPHINE SULFATE (*CRX) 4 MG/ML INJ 2 MG IV PUSH (01:18)
[2024-10-03] MEDS: SODIUM CHLORIDE 0.9% IV 1,000 ML 125 ML IV CONT (04:19)
[2024-10-03 05:29] LABS: Hematocrit 31.8 % (42.0-52.0); Hemoglobin 10.3 g/dL (14.0-18.0); Mean Corpuscular HGB Conc 32.4 g/dl (32-36); Mean Corpuscular Hemoglobin 28.5 pg (26-34); Mean Corpuscular Volume 88.1 fl (80-100); Platelet Count Result 247 k/mm3 (150-375); Red Blood Count 3.61 M/mm3 (4.6-6.20); Red Cell Distribution Width 12.6 % (11.5-14.5); White Blood Count 6.6 K/mm3 (4.5-10.0)
[2024-10-03 05:43] LABS: Alanine Aminotransferase 37 U/L (6-50); Albumin Level 3.1 g/dL (3.5-5.1); Alkaline Phosphatase 213 U/L (38-126); Anion Gap 8 mmol/L (4-12); Aspartate Amino Transferase 35 U/L (17-59); Bilirubin,Total 0.9 mg/dL (0.2-1.3); Blood Urea Nitrogen 7 mg/dL (9-20); Calcium 8.1 mg/dL (8.4-10.2); Carbon Dioxide 23 mmol/L (22-30); Chloride 102 mmol/L (98-107); Estimated CRCL calculation 127 ml/min; Estimated Glomerular Filt Rate > 60; Glucose 275 mg/dL (65-110); Lipase 193 U/L (23-300); Magnesium 1.9 mg/dL (1.6-2.3); Potassium 4.1 mmol/L (3.4-5.0); Sodium 133 mmol/L (137-145)
[2024-10-03 05:47] LABS: INR 1.3; Prothrombin Time 16.3 Seconds (11.1-14.7)
[2024-10-03 05:55] VITALS: BP 116/69; PULSE 78; RESP 16; TEMP 36.8; O2SAT 96
[2024-10-03 08:50] LABS: Glucose Point of Care 255 mg/dl (65-105)
[2024-10-03] MEDS: HYDROcodone/acetaminophen (*CRX) 5-325 MG TABLET 1 TAB PO (09:10)
[2024-10-03] MEDS: TIMOLOL MALEATE 0.25% OP SOLN 5 ML BOTTLE 1 DROP EACH EYE (09:12)
[2024-10-03] MEDS: INSULIN ASPART (*BKC) 100 UNITS/ML SUB-Q (09:13)
[2024-10-03 11:38] LABS: Glucose Point of Care 224 mg/dl (65-105)
[2024-10-03 14:00] VITALS: BP 148/72; PULSE 84; RESP 188; TEMP 36.5; O2SAT 97
--- NOTE | 2024-10-03 14:45 | P.DS_ITS ---
DS: Admitting Diagnosis Discharge Date 10/03/2024 Admitting Diagnosis Acute pancreatitis/pancreatic and liver mass DS: Discharge Diagnosis Discharge Diagnosis (1) Mass of head of pancreas: Code(s): K86.89 - Other specified diseases of pancreas Status: Acute (2) Liver masses: Code(s): R16.0 - Hepatomegaly, not elsewhere classified Status: Acute (3) Peptic ulcer: Code(s): K27.9 - Peptic ulcer, site unspecified, unspecified as acute or chronic, without hemorrhage or perforation Status: Acute (4) Adrenal mass, left: Code(s): E27.8 - Other specified disorders of adrenal gland Status: Acute (5) Valerio esophagus: Code(s): K22.70 - Valerio's esophagus without dysplasia Status: Acute (6) Pancreatitis: Code(s): K85.90 - Acute pancreatitis without necrosis or infection, unspecified Status: Acute (7) Insulin dependent type 2 diabetes mellitus: Code(s): E11.9 - Type 2 diabetes mellitus without complications; 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 [employer]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) use of insulin Status: Acute (8) Dyslipidemia: Code(s): E78.5 - Hyperlipidemia, unspecified Status: Acute (9) Obstructive sleep apnea on CPAP: Code(s): G47.33 - Obstructive sleep apnea (adult) (pediatric) Status: Acute Plan Disposition: discharged to Home DS: Summary Hospital Course Reason for hospitalization: Acute pancreatitis/pancreatic and liver mass Hospital Course: Patient was a 59-year-old male with history of sleep apnea on CPAP, dyslipidemia, type 2 diabetes mellitus, Valerio esophagus, peptic ulcer, and colon polyps who presented to the emergency department via private vehicle late morning on 09/30/2024 with complaints of abdominal pain. He gives a 3 week history of upper abdominal pain which he describes as a constant, pressure-like sensation. He has also had some bloating as well. Last week he had an upper endoscopy at which time he was reportedly diagnosed with a gastric ulcer and pathology came back showing Findings and treatment plan were discussed with the patient. In fact the pain seems to be getting worse. Patient at time of admission had denied fever, vomiting, melena, hematochezia, chest pain, shortness of breath, and weight loss. In the ED: Vital signs have been stable since arrival. Labs on presentation include a WBC count of 9.6, hemoglobin 12.2, sodium 132, chloride 93, carbon dioxide 32, BUN 12, creatinine 0.83, glucose 305, total bilirubin 0.8, AST 80, ALT 40, alkaline phosphatase 216, lipase 6896. CT of the abdomen and pelvis showed multiple masses in the liver which are most likely metastatic, a mass in the head of the pancreas suggestive of malignant mass, left adrenal mass which is most likely metastatic, and findings of constipation. initially patient was placed on transfer list to [place] and was accepted hepatobiliary team. patient had remained in the emergency department for to days and appeared they would not have a bed available any time soon. Per ED physician they spoke with Dr. Heidi Montes De Oca who recommended admission to [place] for biopsy of 1 of the liver mass and they will follow up with the patient as an outpatient. He continued to have abdominal discomfort and is requiring frequent IV morphine. patient was then admitted for further evaluation and treatment of abdominal pain with acute pancreatitis lipase elevated above 6000. Patient was treated with aggressive IV fluids, pain control and initially started on clear liquids until tolerating regular diet. Patient was then scheduled for liver biopsy which was performed and patient tolerated well following procedure patient was tolerating regular diet and reported pain was under control with oral pain medication. Patient was then discharged back to home and provided information for follow-up with [facility] hepatobiliary team for further evaluation and plans for treatment. was at bedside and discussed discharge plan both patient and spouse agreed patient was discharged home and transported via spouse. Status at Discharge Functional status at discharge: independent ambulation Overall status at discharge: patient is progressing back to baseline Time Spent with Patient Time attestation: Total time spent providing and/or coordinating discharge services: Time spent: Greater than 30 minutes Exam Narrative: General: Well-developed, nontoxic-appearing male supine in bed in no acute distress. Weight: 134.5 kg. BMI: 43.8. HEENT: PERRL, EOMI. Sclera anicteric. Tacky mucous membranes. Oropharynx is crowded. Neck: Supple. Limited due to neck circumference. Respiratory: Lungs are clear to auscultation bilaterally. Cardiovascular: Regular rate and rhythm with S1-S2. Gastrointestinal: Abdomen is soft and nondistended with positive bowel sounds. He is tender to palpation throughout the upper abdomen but improved since admission. No guarding or rebound tenderness. Skin: Warm and dry. No rash or lesions on limited exam. Extremities: No cyanosis, clubbing, or edema. Radial and pedal pulses intact. Neurological: Alert. Cranial nerves 2-12 are grossly intact. No gross focal deficits to casual conversation. Psychiatric: Pleasant and cooperative with normal mood and affect. Judgment and insight intact. DS: Data Data Completed and Pending Pending studies at discharge: Pending at discharge 10/03/24 09:34 Surgical [PTH] Routine Labs on day of discharge: Labs from last 24 hours 10/03/24 10/03/24 10/03/24 11:25 08:46 05:22 WBC 6.6 RBC 3.61 L Hgb 10.3 L Hct 31.8 L MCV 88.1 MCH 28.5 MCHC 32.4 RDW 12.6 Plt Count 247 MPV 9.0 PT 16.3 H INR 1.3 Sodium 133 L Potassium 4.1 Chloride 102 Carbon Dioxide 23 Anion Gap 8 BUN 7 L Creatinine 0.74 Estim Creat Clear Calc 127 Estimated GFR > 60 Glucose 275 H POC Capillary Glucose 224 H 255 H Calcium 8.1 L Magnesium 1.9 Total Bilirubin 0.9 AST 35 ALT 37 Alkaline Phosphatase 213 H Total Protein 6.0 L Albumin 3.1 L Lipase 193 10/02/24 10/02/24 20:31 16:53 WBC RBC Hgb Hct MCV MCH MCHC RDW Plt Count MPV PT INR Sodium Potassium Chloride Carbon Dioxide Anion Gap BUN Creatinine Estim Creat Clear Calc Estimated GFR Glucose POC Capillary Glucose 295 H 185 H Calcium Magnesium Total Bilirubin AST ALT Alkaline Phosphatase Total Protein Albumin Lipase Imaging Radiologist's impression: CT abdomen w con Ordering provider: Seymour Fiore History: 59 years Male with . abd pain . Comparison: None. Technique: CT abdomen with IV and without oral contrast. Automated exposure control and iterative reconstruction technique were employed. The dose-length product was 842.38 mGy-cm. 100 mL Omnipaque 350 was given IV. Findings: VISUALIZED LOWER CHEST: Dependent atelectatic changes. UPPER ABDOMINAL ORGANS: Liver: Hepatomegaly. Innumerable hypodensities in the liver which are most likely metastatic lesions with the largest measures 7.2 x 8.2 cm and 5.8 x 5.3 cm in the right lobe segment #7 primary liver tumor is also possible. Gallbladder: Normal. Spleen: Normal. Stomach/duodenum: Normal. Pancreas: Hypodensity in the head of the pancreas is noted measuring 4.3 x 4.6 cm and compressing the third part of the duodenum. Adrenals: Left adrenal adenoma is seen which measures 2.4 cm most likely metastatic. Kidneys: Normal. Small hypodensity seen in the left kidney midpole most likely stenosis. BOWEL AND MESENTERY: Colon: No evidence of diverticulitis in the visualized colon. Fecal material is loaded in the colon.. Appendix is not demonstrated. Small Bowel: Normal. No obstruction, the visualized bowel.. Peritoneum/mesentery: No free air.. No mesenteric lymphadenopathy. Trace of fluid seen in the root of the mesentery area. RETROPERITONEUM: Mild atheromatous disease of the abdominal aorta. No retroperitoneal lymphadenopathy. MUSCULOSKELETAL: Superficial soft tissues: The superficial soft tissues are normal. Bones: Age appropriate degenerative changes of the spine. Spondylolysis at the level of L5-S1. IMPRESSION: 1. Multiple masses in the liver which are most likely metastatic, but primary liver tumor cannot be excluded. 2. Mass in the head of the pancreas suggestive of malignant mass. MRI evaluation advised. 3. Left adrenal mass which is most likely metastatic. 4. Constipation. Discharge Plan Discharge Attending physician on discharge: Amando Cosby Consulting providers: Glory Agee Discharging Clinician: Glory Agee Anticipated Discharge Date/Time: 10/03/24 14:27 Patient Disposition: Home Activity: may shower and other - see discharge instructions Diet: diabetic Discharge Instructions: Liver Biopsy/Follow-up on Liver and pancreatic Mass * CT of the abdomen and pelvis showed multiple masses in the liver which are most likely metastatic, a mass in the head of the pancreas suggestive of malignant mass, left adrenal mass so a liver biopsy was performed * Biopsy can take 3-10 days for results * Monitor for signs of bleeding * Plan for follow-up at [facility] with Dr. Heidi Montes De Oca * I have also prescribed pain medication as needed may have some sedative affects do not operate heavy machinery or drive. * Advance diet as tolerated How can you care for yourself at home? ? Keep track of any new symptoms or changes in your symptoms. ? Rest until you feel better. ? Be safe with medicines. Take your medicines exactly as prescribed. Call your doctor if you think you are having a problem with your medicine. ? Do not drive after taking a prescription pain medicine. ? Ensure to follow-up with primary care physician as indicated and provide [facility] medication list provided to you at discharge. When should you call for help? Call 911 anytime you think you may need emergency care. For example, call if: ? You passed out (lost consciousness). Call your doctor now or seek immediate medical care if: ? You have new symptoms like fever, difficulty breathing, Chest pain, vomiting, or rash. ? You have new or different pain. ? You are confused and are having trouble thinking clearly. ? Your symptoms are getting worse. Watch closely for changes in your health, and be sure to contact your doctor if: ? You do not get better as expected. Patient Instructions: Antibiotic Form, Needle Biopsy (DC) Patient Language: Uruguayan Stand Alone Forms: General Discharge Information Follow-up/Referrals: Heidi Montes De Oca [Other] - Call for Appointment (CT of the abdomen and pelvis showed multiple masses in the liver which are most likely metastatic, a mass in the head of the pancreas suggestive of malignant mass, left adrenal mass which is most likely metastatic. Liver Biopsy completed ) Vu Condon DO [Primary Care Provider] - 2 Weeks Discharge Medications: New oxycodone-acetaminophen 10-325 mg Tablet 1 tablet PO Q4H PRN (Reason: Pain Rated 7-10) Qty: 30 0RF pantoprazole 40 mg Tablet,Delayed Release (Dr/Ec) 40 mg PO Q12HR Qty: 60 0RF Continued metformin 1,000 mg tablet 1,000 mg PO BID atorvastatin 20 mg tablet 20 mg PO DAILY insulin lispro [Humalog KwikPen Insulin] 100 unit/mL insulin pen 1 sliding scale dose subcut USEASDIRECTD glimepiride 2 mg tablet 2 mg PO DAILY timolol 0.25 % drops 1 drp EACH EYE Q12H latanoprost [Xalatan] 0.005 % drops 1 drp EACH EYE QPM insulin glargine-yfgn [Semglee(insulin glarg-yfgn)Pen] 100 unit/mL (3 mL) insulin pen 80 unit subcut DAILY Qty: 75 1RF valsartan-hydrochlorothiazide [Diovan HCT] 160-25 mg tablet 1 tablet PO DAILY Qty: 90 2RF Date of admission: 10/03/24 09:06 Primary Care Provider: uV Condon Admitting Provider: Leatha Neri Attending physician on admission: Leatha Neri Condition: Stable Quality VTE Prophylaxis VTE prophylaxis: mechanical ordered -Patient's previous records reviewed on admission -ER notes reviewed in detail on admission -discussed all findings and current treatment plan with patient/Family/POA -Consultations reviewed for recommendations -Patient's disposition for safe discharge discussed with adult protective caseworker Dictation performed by [employer] direct speech recognition software, therefore golf caddie variants and typographical errors may occur. Hospitalist MIPS Heart Failure (Exclusion) Patient has history of Heart Transplant or Left Ventricular Assistive Device?: No IF YES, STOP HERE Heart Failure (Qualifier) Patient has current or prior documentation of LVEF less than or equal to 40%, or mod/servere depressed LVSF?: No IF NO, STOP HERE
[2024-10-03 16:44] LABS: Glucose Point of Care 244 mg/dl (65-105)
== END 2024-10-03 17:10 | disposition home or self-care (01) | DRG 435 ==
LOC: ANHED 10-02 15:12 → ANH3MED 10-02 15:54
PROVIDERS: Family Medicine; Internal Medicine; Physician Assistant; Admitting Provider Internal Medicine; Emergency Provider Emergency Medicine; PCP Internal Medicine; Visit Provider Nurse Practitioner Family
DX: C78.7 Secondary malignant neoplasm of liver and intrahepatic bile duct (principal); K85.90 Acute pancreatitis without necrosis or infection, unspecified; K25.9 Gastric ulcer, unspecified as acute or chronic, without hemorrhage or perforation; C80.1 Malignant (primary) neoplasm, unspecified; K22.70 Barrett's esophagus without dysplasia; E11.9 Type 2 diabetes mellitus without complications; E78.5 Hyperlipidemia, unspecified; M19.012 Primary osteoarthritis, left shoulder; M19.011 Primary osteoarthritis, right shoulder; G47.30 Sleep apnea, unspecified; Z96.649 Presence of unspecified artificial hip joint; Z96.619 Presence of unspecified artificial shoulder joint; Z79.4 Long term (current) use of insulin; Z86.0101 Personal history of adenomatous and serrated colon polyps
CPT/HCPCS: 36415; 47000; 74160; 76942; 80053; 81001; 82948; 83605; 83690; 83735; 85025; 85027; 85610; 88307; 88342; 94002; 96361; 96374; 99285; A9270; G0378; J1815; J2270; J2405; J7030; Q9967

== ENCOUNTER 2024-11-30 17:02 | Emergency (ER) | payer OTHER, SELFPAY ==
--- NOTE | ~2024-11-30 | XR_ITS ---
EXAM: XR abdomen/kub 1V DATE: 11/30/2024 17:25 HISTORY: concern for constipation . COMPARISON: CT abdomen 09/30/2024. FINDINGS: Clear lung bases. No significant bowel dilation. Moderate volume of colonic feces. No orga nomegaly. No abnormal abdominal calcification. Partially visualized uncomplicated appearing left hip arthroplasty hardware. Diffuse osseous sclerosis. Multilevel lumbar degenerative disc disease. IMPRESSION: No radiographic evidence of obstruction or ileus. Moderate volume of colonic feces. Diffu se osseous sclerosis may be secondary to osseous metastases in the appropriate clinical context. Reviewed, dictated and finalized at location K. IMPRESSION: No radiographic evidence of obstruction or ileus. Moderate volume o f colonic feces. Diffuse osseous sclerosis may be secondary to osseous metastas es in the appropriate clinical context.
--- OUTSIDE RECORDS SUMMARY | 2024-11-30 17:05 | XMS_ITS | Clinical Summary ---
Author Organization [facility] Address [address] [place] [address] Care Team Providers Care Director [place] Name Role Phone Vu Condon Primary Care Provider [phone] Franklin Phelps MD PhD Unavailable [phone] Allergies Active Allergy Reactions Criticality Noted Date Comments Dapagliflozin Propanediol Rash Medium 10/15/2024 Dapagliflozin Other (See comments) Medium 10/21/2018 Mycotic infection Penicillins Other (See comments) Low rash Medications latanoprost (XALATAN) 0.005 % ophthalmic solutionIndicatio ns:glaucoma prevention Administer 1 drop into both eyes nightly 019 Active valsartan-hydroch lorothiazide (DIOVAN-HCT) 160-25 mg per tabletIndications :hypertension Take 1 tablet by mouth every morning Activ e timolol (TIMOPTIC) 0.25 % ophthalmic solution Administer 1 drop into both eyes daily 023 Active fluticasone propionate (FLONASE) 50 mcg/actuation nasal spray SHAKE LIQUID AND USE 2 SPRAYS IN EACH NOSTRIL DAILY NEEDED FOR NASAL CONGESTION 024 Active semaglutide (OZEMPIC) 2 mg/dose (8 mg/3 mL) pen injector injectionIndicati ons:Type 2 diabetes mellitus with hyperglycemia, with long-term current use of insulin (HCC) Inject 2 mg under the skin every 7 days 9 mL 3 024 Active pen needle, diabetic (BD Ultra-Fine Short Pen Needle) 31 gauge x 5/16 needleIndications :Type 2 diabetes mellitus with hyperglycemia, with long-term current use of insulin ([facility]) Inject 1 each under the skin 4 (four) times a day before meals and nightly Use to take insulin 4 x day. 400 each 3 024 Active HumaLOG 100 unit/mL pen for injection INJECT 20 TO 30 UNITS UNDER THE SKIN TWICE A DAY BEFORE BREAKFAST AND DINNER (MAXIMUM DAILY DOSE 60 UNITS) 60 mL 3 025 Active glimepiride (AMARYL) 2 mg tabletIndications :Type 2 diabetes mellitus with hyperglycemia, with long-term current use of insulin ([facility]) TAKE 1 TABLET DAILY BEFORE BREAKFAST 90 tablet 3 025 Active atorvastatin (LIPITOR) 20 mg tablet TAKE 1 TABLET DAILY 90 tablet [address] (PROTONIX) 40 mg EC tablet Take 1 tablet (40 mg total) by mouth every 12 (twelve) hours 025 Active ondansetron (ZOFRAN) 8 mg tabletIndications :Duodenal adenocarcinoma (HCC),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 24 tablet 3 025 Active prochlorperazine (Compazine) 10 mg tabletIndications :Duodenal adenocarcinoma (HCC),Malignant neoplasm metastatic to liver (HCC) Take 1 tablet (10 mg total) by mouth every 6 (six) hours as needed for nausea or vomiting Use first for nausea. 120 tablet 3 025 Active lidocaine-priloca ine (EMLA) creamIndications: Administration of Local Anesthesia Place cream over port site 30-45 minutes prior to each use and cover with plastic wrap or a [id number]. 30 g 6 025 Active metFORMIN XR (GLUCOPHAGE XR) 500 mg 24 hr tabletIndications :Type 2 diabetes mellitus with hyperglycemia, with long-term current use of insulin ([facility]) TAKE 2 TABLETS TWICE A DAY 360 tablet 3 025 Active SEMGLEE-yfgn 100 unit/mL (3 mL) pen for injectionIndicati ons:Type 2 diabetes mellitus with hyperglycemia, with long-term current use of insulin ([facility]) INJECT 80 UNITS UNDER THE SKIN DAILY, 75 mL 3 Active FreeStyle Treasure 2 Plus Sensor deviceIndications :Type 2 diabetes mellitus with hyperglycemia, with long-term current use of insulin ([facility]) Change sensor every 15 days 6 each 1 Active insulin glargine (LANTUS) 100 unit/mL (3 mL) pen for injectionIndicati ons:Type 2 diabetes mellitus with hyperglycemia, with long-term current use of insulin ([facility]) Inject 80 Units under the skin nightly 45 mL 5 025 Active dexAMETHasone (DECADRON) 4 mg tablet TAKE 2 TABLETS BY MOUTH ONCE DAILY ON DAYS 2-3 OF EACH CYCLE Active omeprazole (PriLOSEC) 40 mg capsule TAKE 1 CAPSULE BY MOUTH TWICE DAILY 30 MINUTES BEFORE BREAKFAST AND DINNER Active oxyCODONE-acetami nophen (PERCOCET) 10-325 mg per tabletIndications :Duodenal adenocarcinoma (HCC) Take 1 tablet by mouth every 6 (six) hours as needed for pain 120 tablet Active celecoxib (CeleBREX) 200 mg capsule 023 2024 Disconti nued(Pat ient Reported ) gabapentin (NEURONTIN) 300 mg capsule Take 1 capsule (300 mg total) by mouth 3 (three) times a day 270 capsule 2 024 2024 Disconti nued(Pat ient Reported ) nortriptyline (PAMELOR) 25 mg capsuleIndication s:Diabetic polyneuropathy associated with type 2 diabetes mellitus ([facility]) TAKE 1 CAPSULE NIGHTLY 90 capsule 3 024 2024 Disconti nued(Pat ient Reported ) etodolac (LODINE) 400 mg tablet TAKE 1 TABLET BY MOUTH EVERY DAY TAKE BEFORE PLAYING SPORTS AND TAKE WITH FOOD 024 2024 Disconti nued(Pat ient Reported ) oxyCODONE-acetami nophen (PERCOCET) 10-325 mg per tabletIndications :Duodenal adenocarcinoma (HCC) Take 1 tablet by mouth every 6 (six) hours as needed for pain 120 tablet 025 2024 Disconti nued(Reo rder) FreeStyle Treasure 2 Sensor kitIndications:Ty pe 2 diabetes mellitus with hyperglycemia, with long-term current use of insulin (HCC) CHANGE SENSOR EVERY 14 DAYS 6 kit 3 025 2024 Disconti kiah(Priscilla fernández Reported ) Active Problems Problem Noted Date Diagnosed Date 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 Discussed healthy diet and importance of regular physical activity (20- 30min/day, 150min/wk). SRI on CPAP 05/07/2021 Primary osteoarthritis of left shoulder 04/14/20 21 Overview (04/14/2021): Added automatically from request for surgery [id number] Diabetic polyneuropathy asso ciated with type 2 [...] 05/07/2020 DDD (degenerative disc disease), lumbar 03/11/20 Degenerative lumbar spinal stenosis 03/11/2020 Chronic left-sided [...] Hyperlipidemia associated with type 2 diabetes cornel gregory 06/06/2018 Assessment & Plan (04/06/2024 9:02 AM CDT): Chronic problem, controlled on current Atovastatin 20mg. Last lipid panel: 01/13/23 LDL=93, ZT=565. No changes at this time. Will update lipid panel today. Verified that he uses [employer]. Aware to check results/results letter in [employer]. Will contact by phone if needed. Assessment & Plan (01/13/2023 10:12 AM CDT): Chronic problem, controlled on current Atovastatin 20mg. Last lipid panel: 01/13/22 LDL=80, TG=95. No changes at this time. Will update lipid panel today. Verified that he uses mychart. Aware to check results/results letter in [employer]. Will contact by phone if needed. Assessment & Plan (09/16/2022 11:34 AM CDT): Chronic problem, controlled on current Atovastatin 20mg. Last lipid panel: 01/13/22 LDL=80, TG=95. No changes at this time. Assessment & Plan (05/13/2022 10:18 AM GUSSET STITCHER): Chronic problem. On statin therapy, no changes. Assessment & Plan (01/13/2022 9:39 AM CDT): Chronic, well controlled Low fat Low cholesterol diet Exercise Continue statin therapy Check lipid profile Assessment & Plan (08/17/2021 4:39 PM GUSSET STITCHER): Chronic, well controlled Continue current meds Assessment & Plan (12/21/2019 10:56 AM CDT): At goal on current medications. Continue statin therapy. Assessment & Plan (09/13/2019 2:22 PM CDT): At goal on current medications. Continue statin therapy. Assessment & Plan (05/10/2019 4:20 PM GUSSET STITCHER): Goal of treatment , LDL cholesterol less [...] panel Assessment & Plan (06/06/2018 2:28 PM GUSSET STITCHER): Goal of treatment , LDL cholesterol less [...] time. Assessment & Plan (05/13/2022 10:18 AM GUSSET STITCHER): Controlled on current medications, no changes. Assessment & Plan (01/13/2022 9:40 AM CDT): Chronic, well controlled Continue current meds Check MA Assessment & Plan (12/21/2019 10:55 AM CDT): Controlled on current medications. Continue plan. Assessment & Plan (09/13/2019 2:22 PM CDT): Controlled on current medications. Continue plan. Assessment & Plan (05/10/2019 4:19 PM GUSSET STITCHER): Goal blood pressure is less than 140/85 Low salt diet recommended Daily aerobic exercise Continue current meds, including NICHOLE-I or ARB Check microalbumin Assessment & Plan (02/06/2019 3:15 PM CDT): Controlled on current medications. Assessment & Plan (10/21/2018 9:02 PM CDT): At goal on current medications. Assessment & Plan (06/06/2018 2:28 PM GUSSET STITCHER): Goal blood pressure is less than 140/85 Low salt diet recommended Daily aerobic exercise Continue current meds, including NICHOLE-I or ARB Assessment & Plan (12/22/2017 10:39 AM CDT): Controlled on current medications. Assessment & Plan (09/21/2017 2:12 PM CDT): Controlled on current medications. Assessment & Plan (06/21/2017 11:48 AM GUSSET STITCHER): Goal blood pressure is less than 140/85 Low salt diet recommended Daily aerobic exercise Continue current meds, including NICHOLE-I or ARB Nontoxic uninodular goiter 11/10/2013 Overview (09/29/2016): NONTOX UNINODULAR GOITER Assessment & Plan (09/02/2020 4:22 PM GUSSET STITCHER): Thyroid ultrasound performed today Right lower thyroid [...] update labs today. Verified that he uses [employer]. Aware to check results/results letter in [employer]. Will contact by phone if needed. UTD [...] Humalog Assessment & Plan (05/06/2023 9:22 AM GUSSET STITCHER): Hba1c was Lab Results Component Value Date [...] update labs today. Verified that he uses [employer]. Aware to check results/results letter in [employer]. Will contact by phone if needed. DM [...] sugars. Assessment & Plan (05/13/2022 10:20 AM GUSSET STITCHER): Chronic problem, stable per Treasure download. We [...] hypoglycemia Assessment & Plan (08/17/2021 4:38 PM GUSSET STITCHER): Hba1c was Lab Results Component Value Date [...] Metformin Assessment & Plan (09/02/2020 4:21 PM GUSSET STITCHER): Hba1c was Lab Results Component Value Date [...] exam. Assessment & Plan (05/10/2019 4:19 PM GUSSET STITCHER): Hba1c was Lab Results Component Value Date [...] exercise. Assessment & Plan (06/06/2018 2:39 PM GUSSET STITCHER): Hba1c was Lab Results Component Value Date [...] accountability. Assessment & Plan (06/21/2017 2:06 PM GUSSET STITCHER): Your Hba1c today was: 9.7 meaning a 3 month average sugar of : 237 Your goal hba1c is under 7.0 to prevent residential diabetes complications ( eye , kidney and [...] 01/13/2022 09/16/2022 Body mass index 40.0-44.9, adult ([facility]) 01/13/2022 09/16/2022 Hyperlipidemia 09/21/2017 09/16/2022 Assessment & Plan (12/22/2017 10:39 AM CDT): LDL at goal on current dose of statin Assessment & Plan (09/21/2017 2:11 PM CDT): Continue statin therapy BMI 40.0-44.9, adult 06/21/2017 023 Assessment & Plan (09/02/2020 4:22 PM GUSSET STITCHER): Patient refusing the consideration for bariatric surgery Phentermine was started because elevated blood pressure Will try Wellbutrin Assessment & Plan (09/13/2019 2:22 PM CDT): Importance of following diet and exercising discussed. Assessment & Plan (02/06/2019 3:14 PM CDT): Recommend he try keto diet again Assessment & Plan (12/22/2017 10:39 AM CDT): Ketogenic diet reviewed Morbid obesity ([facility]) 06/21/2017 Assessment & Plan (04/06/2021 1:02 PM CDT): Worsening Low calorie diet discussed Start phentermine Assessment & Plan (12/21/2019 10:57 AM CDT): Continues to lose wt with focus on steady caloric intake , intermittent fasting, phentermine. Assessment & Plan (05/10/2019 4:18 PM GUSSET STITCHER): Diet and exercise were discussed. 1200 Calorie diet advised 45-60 min aerobic / resistance exercise most days of the week recommended. Start Phentermine Bariatric surgery medically indicated . Pt seems to agreed Referral sent to [facility] bariatric center. Assessment & Plan (10/21/2018 9:02 PM CDT): Importance of following diet and exercising discussed. Assessment & Plan (09/21/2017 2:12 PM CDT): Importance of following diet and exercising discussed. Encounters Date Type Department Care Team Description 11/30/2024 Telephone [facility] Oncology [address] [place] [address] Floor 5 [place] [address] Kaitlin Robles RN 11/26/2024 2:00 PM CDT Infusion [facility] - Infusion [address] [place] [address] Floor 5 [place] [address] Malignant neoplasm metastatic to liver (HCC) (Primary Dx); Malignant neoplasm of head of pancreas (HCC) 11/26/2024 12:45 PM CDT Office Visit [facility] [address] [place] [address] Floor 5 [place] [address] Barbara Weinberg PA Malignant neoplasm metastatic to liver (HCC) (Primary Dx); Malignant neoplasm of head of pancreas (HCC) 11/26/2024 11:45 AM CDT Clinical Support [facility] - Lab Collection [facility] Floor 5 [place] [address] Malignant neoplasm of head of pancreas (HCC); Malignant neoplasm metastatic to liver (HCC) 11/14/2024 Telephone [facility] [address] [place] [address] Floor 8 [place] [address] Kaitlin Robles RN 11/14/2024 Documentation [facility] [address] [place] [address] Vianney Rees CMA 11/12/2024 12:30 PM CDT Infusion [facility] - Infusion [address] [place] [address] Floor 6 [place] [address] Malignant neoplasm metastatic to liver (HCC) (Primary Dx); Malignant neoplasm of head of pancreas (HCC) 11/12/2024 11:30 AM CDT Office Visit [facility] Floor 5 [place] [address] Franklin Phelps MD PhD Malignant neoplasm metastatic to liver (HCC) (Primary Dx); Malignant neoplasm of head of pancreas (HCC); Type 2 diabetes mellitus with hyperglycemia, with long-term current use of insulin (HCC) 11/12/2024 10:30 AM CDT Clinical Support [facility] - Lab Collection [facility] Floor 5 [place] [address] Malignant neoplasm of head of pancreas (HCC); Malignant neoplasm metastatic to liver (HCC) 11/05/2024 3:00 PM CDT Infusion [facility] - Infusion [address] [place], [place] [address] Floor 6 [place] [address] Malignant neoplasm metastatic to liver (HCC) (Primary Dx); Malignant neoplasm of head of pancreas (HCC) 11/05/2024 2:00 PM CDT Clinical Support [facility] - Lab Collection [facility] Floor 6 [place] [address] Malignant neoplasm of head of pancreas (HCC); Malignant neoplasm metastatic to liver (HCC) 11/05/2024 Orders Only [facility] [address] [place] [address] Floor 5 [place] [address] Franklin Phelps MD PhD 11/03/2024 Orders Only [facility] [address] [place] [address] Floor 8 [place] [address] Frankiln Phelps MD PhD 10/30/2024 Orders Only [facility] [address] [place] [address] [address] [place] [address] Franklin Phelps MD PhD 10/30/2024 Telephone [facility] [address] [place] [address] Floor 5 [place] [address] Kaitlin Robles RN 10/29/2024 10:00 AM CDT Infusion [facility] - Infusion [facility] Floor 5 [place] [address] Malignant neoplasm of head of pancreas (HCC) (Primary Dx); Duodenal adenocarcinoma (HCC); Malignant neoplasm metastatic to liver (HCC) 10/29/2024 9:00 AM CDT Office Visit [facility] Floor 5 [place] [address] Franklin Phelps MD PhD Malignant neoplasm of head of pancreas (HCC) (Primary Dx); Duodenal adenocarcinoma (HCC); Malignant neoplasm metastatic to liver (HCC) 10/29/2024 8:30 AM CDT Clinical Support [facility] - Lab Collection [address] [facility] Floor 5 [place] [address] Duodenal adenocarcinoma (HCC); Malignant neoplasm metastatic to liver (HCC) 10/29/2024 8:00 AM CDT Clinical Support [facility] Lab [facility] Floor 5 [place] [address] Duodenal adenocarcinoma (HCC); Malignant neoplasm metastatic to liver (HCC); Malignant neoplasm of head of pancreas (HCC) 10/24/2024 Orders Only [facility] Scanning, Provider 10/23/2024 3:11 PM CDT - 10/23/2024 11:59 PM CDT Hospital Encounter [facility] - [place] [address] [facility] Floor 8 [place] [address] Duodenal adenocarcinoma (HCC); Metastatic malignant neoplasm, unspecified site (HCC) Discharge Disposition: Discharge to home or self care 10/23/2024 3:11 PM CDT - 10/23/2024 11:59 PM CDT Hospital Encounter [facility] - [place] [address] [facility] Floor 8 [place] [address] Duodenal adenocarcinoma (HCC); Metastatic malignant neoplasm, unspecified site (HCC) Discharge Disposition: Discharge to home or self care 10/23/2024 12:42 PM CDT - 10/23/2024 11:59 PM CDT Hospital Encounter [facility] Radiology [facility] [place] [address] [place] [address] Duodenal adenocarcinoma (HCC); Metastatic malignant neoplasm, unspecified site (HCC) Discharge Disposition: Discharge to home or self care 10/18/2024 8:30 AM CDT - 10/18/2024 9:00 AM CDT Surgery [facility] [address] [facility] [address] [place] [address] Arabella Painting MD SMALL BOWEL ENDOSCOPY 10/18/2024 8:14 AM CDT Anesthesia Event [facility] [address] [facility] [address] [place] [address] Marcial Michel MD 10/18/2024 7:02 AM CDT - 10/18/2024 11:33 AM CDT Hospital Encounter [facility] [address] [address] Heidi Montes De Oca MD Early, Dayna S., MD Discharge Disposition: Discharge to home or self care 10/18/2024 Telephone [facility] Radiology [address] [place] [address] Erin Sanderson, MARTA 10/17/2024 Documentation [facility] [address] [place] [address] Medicine [facility] [place] [address] [place] [address] Neetu Tucker RN 10/17/2024 Telephone [facility] [address] [place] [address] Medicine [facility] [place] [address] [place] [address] Shari Roche 10/16/2024 Orders Only [facility] Scanning, Provider 10/16/2024 Telephone [facility] [address] [place] [address] [place] [address] [place] [address] Lakesha Adam 10/15/2024 4:30 PM CDT Lab [facility] - Lab Collection [address] [facility] Floor 5 [place] [address] Duodenal adenocarcinoma (HCC); Metastatic malignant neoplasm, unspecified site (HCC) 10/15/2024 3:30 PM CDT Office Visit [facility] [address] [facility] Floor 5 [place] [address] Franklin Phelps MD PhD Duodenal adenocarcinoma (HCC) (Primary Dx); Metastatic malignant neoplasm, unspecified site (HCC); Malignant neoplasm metastatic to liver (HCC) 10/15/2024 Orders Only [facility] [address] [facility] Floor 5 [place] [address] Franklin Phelps MD PhD Malignant neoplasm metastatic to liver (HCC) (Primary Dx); Duodenal adenocarcinoma (HCC) 10/11/2024 Orders Only [facility] [address] [place] [address] Heidi Montes De Oca MD Metastatic malignant neoplasm, unspecified site (HCC) 10/09/2024 Telephone [facility] [address] [place] [address] Advanced Medicine [facility] [place] [address] [place] [address] Shari Roche GI Assessment pre procedure call 10/09/2024 Orders Only [facility] [address] [place] [address] [place] [address] [place] [id number] Neetu Tucker RN Metastatic malignant neoplasm, unspecified site (HCC) (Primary Dx) 10/09/2024 Documentation [facility] [address] [place] [address] [place] [address] [place] [address] Heidi Montes De Oca MD 10/08/2024 Orders Only [facility] Scanning, Provider 10/07/2024 Results Follow-Up [facility] [address] [place] [address] [place] [address] [place] [address] Heidi Montes De Oca MD CT Body Outside Consult 10/04/2024 5:40 PM CDT - 10/04/2024 11:59 PM CDT Hospital Encounter [facility] Radiology [facility] [address] [place] [address] Diagnosis unknown Discharge Disposition: Discharge to home or self care 10/04/2024 Telephone [facility] [address] [place] [address] [place] [address] [place] [address] Neetu Tucker RN 09/30/2024 Telephone [facility] [address] [place] [address] [place] [address] [place] [id number] Heidi Montes De Oca MD 09/21/2024 Orders Only [facility] Scanning, Provider from Last 3 Months Surgical History Surgery Date Site/Laterality Comments CARPAL TUNNEL RELEASE ROTATOR CUFF REPAIR 06/27/2004 - 06/26/2005 Right KNEE ARTHROSCOPY Bilateral TOTAL HIP ARTHROPLASTY Left PORT PLACEMENT CHEST >5 YEARS 10/23/2024 N/A Medical History Medical History Date Comments Type 2 diabetes mellitus (HCC) D iabetes type 2 Hypertension Claustrophobia Hypercholesteremia Sleep apnea Obesity Arthritis Low back pain Chronic pain disorder Adenocarcinoma of pancreas (HCC) Family History Medical History Relation Name Comments Arthritis Brother Clint duron Alcohol abuse Father Oc duron Lung cancer Father cO duron Stroke Mother Nga duron Diabetes Other grandparents Hypertension Other grandparents Obesity [...] you have a drink containing alc ohol? 2-3 times a week 10/18/2024 Q2: How many drinks containi ng alcohol do you have on a typical day when you are drinking? 3 or 4 10/18/2024 Q3: How often do you have si x or more drinks on one occasion? Monthly 10/18/2024 PHQ-2 Answer Date Recorded PHQ-2 Total Score (If total score is 3 or more points, staff should administer the PHQ-9) 0 01/13/2023 Personal Safety Answer Date Recorded Have you ever been in or are you currently in a harmful physical or emotional relationship or is someone making you feel afraid or unsafe? Denies 10/23/2024 Sex and Gender Information Value Date Recorded Sex Assigned at Not on file Legal Sex Male 8:47 PM GUSSET STITCHER Gender Identity Male 12/29/2020 10:31 AM CDT Sexual Orientation Straight 12/29/2020 10 :31 AM CDT Obstetrics History Last Filed Vital Signs Vital Sign Reading Time Taken Comments Blood Pressure 145/79 11/26/2024 12:36 PM CDT Pulse 79 11/26/2024 12:36 PM CDT Temperature 37.1 C (98.8 F) 11/26/2024 12:36 PM CDT Respiratory Rate 15 11/26/2024 12:36 PM CDT Oxygen Saturation 99% 11/26/2024 12:36 PM CDT Inhaled Oxygen Concentration - - Weight 122 kg (269 lb) 11/26/2024 12:36 PM CDT Height 171.5 cm (5' 7.52) 10/29/2024 10:38 AM C DT Body Mass Index 41.48 10/29/2024 10:38 AM CDT Plan of Treatment Health Maintenance Due Date Last Done Comments Colon Cancer Screening-Colonoscopy 1965 Hepatitis C Screening 1965 DTaP/Tdap/Td Vaccine (1 - Tdap) 1976 Hepatitis B Screening 1983 Regular Well Visit/Exam 18-64 1983 Pneumococcal vaccine <65 (1 of 2 - PCV) 1984 Zoster Vaccine (1 of 2) 1984 Prostate Cancer Screening-PSA 10/12/2019 10/11/2017 Covid-19 Vaccine (3 - Modern a risk series) 10/03/2020 09/05/2020, 08/08/2020 Depression Screening 01/14/2024 01/13/2023, 08/17/2021, 09/02/2020, Additional history exists Hemoglobin A1C 10/05/2024 04/06/2024, 09/26, 05/06/2023, Additional history exists Dilated Eye Exam 01/16/2025 01/17/2024, , 01/05/2022, Additional history exists Influenza Vaccine (Season Ended) 2025 Albumin Creatinine Ratio, Urine 04/06/2025 04/06/2024, 01/13/2023, 01/13/2022, Additional history exists Foot Exam 04/06/2025 04/06/2024, 08/26, 08/17/2021, Additional history exists Lipid Panel 04/06/2025 04/06/2024, 12/26, 01/13/2022, Additional history exists eGFR 11/26/2025 11/26/2024, 10/25, 11/05/2024, Additional history exists Goals Goal Patient Goal Type Associated Problems Recent Progress Patient-Stated? Author BH-Pain Behavioral Health Improving(04/2020 12:07 PM GUSSET STITCHER) Mariana Camejo, RN Note: Patient will establish a comfort-function goal and identify the pain level that will allow the patient to perform desired activities and achieve an acceptable quality of life. Medical Devices Implanted Type Area Electronic Warfare Officer Device Identifier Shelf Expiration Date Model / Serial / Lot [employer] 6191-1-010 Simplex P Radiopaque Full Dose Cement Bone Sterile - Sna - [id number] Implanted:Qty: 1 on 05/13/2021 by Harinder Orosco MD at [facility] Bone Cement Left: Shoulder [place] [employer] 05/26/2023 6191-1-0 10 / NA / [id number] [employer] [id number] Aequalis Perform Cortiloc 60mm Peg Shoulder Large Component Latex Free - [id number] - [id number] Implanted:Qty: 1 on 05/13/2021 by Harinder Orosco MD at [facility] Other - see comments Left: Shoulder LEAF [employer] [id number] 08/13/2025 [id number] / [id number] / [employer] [id number] Head Perform Cocr Modular Humeral - [id number] - [id number] Implanted:Qty: 1 on 05/13/2021 by Harinder Orosco MD at [facility] Other - see comments Left: Shoulder LEAF [employer] [id number] 11/14/2025 [id number] / [id number] / [employer] [id number] Car Park Attendant Perform Centered Modular Humeral Head Ti - Sna - [id number] Implanted:Qty: 1 on 05/13/2021 by Harinder Orosco MD at [facility] Other - see comments Left: Shoulder LEAF [employer] [id number] 04/08/2026 [id number] / NA / [employer] [id number] Stem Perform Sz 3 Humeral - [id number] - [id number] Implanted:Qty: 1 on 05/13/2021 by Harinder Orosco MD at [facility] Other - see comments Left: [facility] PolySpot [id number] 09/18/2025 [id number] / [id number] / [employer] Xcela Power Port 8fr [id number] - [id number] Implanted:Qty: 1 on 10/23/2024 at [facility] Other - see comments [employer] 05/07/2029 [id number] / / [id number] Lt Thr Hip Explanted Type Area Electronic Warfare Officer Device Identifier Shelf Expiration Date Model / Serial / Lot PolySpot [id number] Guide Pin Perform 3.0 X 100mm - Sna - [id number] Explanted:Qty : 1 on 05/13/2021 by Harinder Orosco MD at [facility] Other - see comments Left: [facility] [employer]Spot [id number] / NA / Description:For fixation pur poses only. Not intended for implant. Procedures Procedure Name Priority Date/Time Associated Diagnosis Comments EGFR STAT 11/26/2024 11:52 AM CDT Malignant 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) DIFFERENTIAL AUTO Routine 11/26/2024 11:52 AM CDT Malignant 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) CANCER ANTIGEN 19-9 Routine 11/26/2024 11:52 AM CDT Malignant 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) CBC WITH AUTO DIFFERENTIAL Routine 11/26/2024 11:52 AM CDT Malignant 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) COMPREHENSIVE METABOLIC PANEL STAT 11/26/2024 11:52 AM CDT Malignant 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) MANUAL DIFFERENTIAL Routine 11/12/2024 10:35 AM CDT Malignant 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) EGFR STAT 11/12/2024 10:35 AM CDT Malignant 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) CBC WITH AUTO DIFFERENTIAL Routine 11/12/2024 10:35 AM CDT Malignant 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) COMPREHENSIVE METABOLIC PANEL STAT 11/12/2024 10:35 AM CDT Malignant 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) EGFR STAT 11/05/2024 2:26 PM CDT Malignant 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) MANUAL DIFFERENTIAL Routine 11/05/2024 2 :26 PM CDT Malignant 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) CBC WITH AUTO DIFFERENTIAL Routine 11/05/2024 2:26 PM CDT Malignant 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) COMPREHENSIVE METABOLIC PANEL STAT 11/05/2024 2:26 PM CDT Malignant 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) EGFR STAT 10/29/2024 8:05 AM CDT Duodenal adenocarcinoma (HCC) Malignant neoplasm metastatic to liver (HCC) DIFFERENTIAL AUTO STAT 10/29/2024 8:0 5 AM CDT Duodenal adenocarcinoma (HCC) Malignant neoplasm metastatic to liver (HCC) CBC WITH AUTO DIFFERENTIAL STAT 10/29/2024 8:05 AM CDT Duodenal adenocarcinoma (HCC) Malignant neoplasm metastatic to liver (HCC) COMPREHENSIVE METABOLIC PANEL STAT 10/29/2024 8:05 AM CDT Duodenal adenocarcinoma (HCC) Malignant neoplasm metastatic to liver (HCC) SCAN - PATHOLOGY 10/24/2024 11:[address] CHEST W CONTRAST Schedule Routine, Read Routine (OP Routine) 10/23/2024 3:45 PM CDT Duodenal adenocarcinoma (HCC) Metastatic malignant neoplasm, unspecified site (HCC) CT PELVIS W CONTRAST Schedule Routine, Read Routine (OP Routine) 10/23/2024 3:44 PM CDT Duodenal adenocarcinoma (HCC) Metastatic malignant neoplasm, unspecified site (HCC) PORT PLACEMENT CHEST >5 YEARS Schedule Routine, Read Routine (OP Routine) 10/23/2024 2:29 PM CDT Duodenal adenocarcinoma (HCC) Metastatic malignant neoplasm, unspecified site (HCC) ME AN PROCEDURE PLACEHOLDER Routine 10/18/2024 8:28 AM CDT ME AN ELECTIVE ENDOTRACHEAL AIRWAY Routine 10/18/2024 8:28 AM CDT SMALL BOWEL ENDOSCOPY 10/18/2024 8:14 AM CDT Metastatic malignant neoplasm, unspecified site (HCC) Gastric ulcer, unspecified chronicity, unspecified whether gastric ulcer hemorrhage or perforation present SMALL BOWEL ENTEROSCOPY 10/18/2024 8:13 AM CDT POCT GLUCOSE DEVICE Routine 10/18/2024 7 :42 AM CDT GI - RESULT 10/16/2024 2:25 PM CDT MISCELLANEOUS MOLECULAR SEND-OUT REQUEST Routine 10/15/2024 4:51 PM CDT IRON PROFILE W/ IBC Routine 10/15/2024 4 :50 PM CDT Duodenal adenocarcinoma (HCC) Metastatic malignant neoplasm, unspecified site (HCC) EGFR Routine 10/15/2024 4:50 PM CDT Duodenal adenocarcinoma (HCC) Metastatic malignant neoplasm, unspecified site (HCC) FERRITIN Routine 10/15/2024 4:50 PM CDT Duodenal adenocarcinoma (HCC) Metastatic malignant neoplasm, unspecified site (HCC) DIFFERENTIAL AUTO Routine 10/15/2024 4:5 0 PM CDT Duodenal adenocarcinoma (HCC) Metastatic malignant neoplasm, unspecified site (HCC) MISCELLANEOUS MOLECULAR SEND-OUT REQUEST Routine 10/15/2024 4:50 PM CDT Duodenal adenocarcinoma (HCC) Metastatic malignant neoplasm, unspecified site (HCC) CBC WITH AUTO DIFFERENTIAL Routine 10/15/2024 4:50 PM CDT Duodenal adenocarcinoma (HCC) Metastatic malignant neoplasm, unspecified site (HCC) COMPREHENSIVE METABOLIC PANEL Routine 10/15/2024 4:50 PM CDT Duodenal adenocarcinoma (HCC) Metastatic malignant neoplasm, unspecified site (HCC) CEA Routine 10/15/2024 4:50 PM CDT Duodenal adenocarcinoma (HCC) Metastatic malignant neoplasm, unspecified site (HCC) CANCER ANTIGEN 19-9 Routine 10/15/2024 4 :50 PM CDT Duodenal adenocarcinoma (HCC) Metastatic malignant neoplasm, unspecified site (HCC) PROTIME-INR Routine 10/15/2024 4:50 PM CDT Duodenal adenocarcinoma (HCC) Metastatic malignant neoplasm, unspecified site (HCC) APTT Routine 10/15/2024 4:50 PM CDT Duodenal adenocarcinoma (HCC) Metastatic malignant neoplasm, unspecified site (HCC) TEMPUS XT DNA AND RNA SOLID TUMOR Routine 10/15/2024 4:06 PM CDT Duodenal adenocarcinoma (HCC) Metastatic malignant neoplasm, unspecified site (HCC) SURGICAL PATHOLOGY Routine 10/11/2024 10:47 AM CDT Metastatic malignant neoplasm, unspecified site (HCC) SCAN - PATHOLOGY 10/08/2024 3:[address] BODY OUTSIDE CONSULT Routine 10/04/2024 5:40 PM CDT Diagnosis unknown SCAN - LABS 09/21/2024 LIPID PANEL Routine 04/06/2024 9:50 AM CDT [...] Relevant to Health Maintenance Results * eGFR (11/26/2024 11:52 AM CDT) eGFR >90 >=60 mL/min/1. 73 m2 Comment: Interpretive Data [...] interpretive data was last reviewed 2021. Blood 11/26/2024 11:5 2 AM CDT 11/26/2024 12:01 PM CDT us Franklin Phelps MD PhD LAB BLOOD ORDERABLES Fin al Result [facility] Department [place] [address] * (ABNORMAL) Differential, auto (11/26/2024 11:52 AM CDT) Neutrophil abs 6.05 1.50 - 6.50 K/cumm Comment:Testing performed by : [facility], [address] [place] [address] Lymphocyte abs 0.69(L) 0.80 - 3.30 K/cumm [facility] Comment:Testing performed by : [facility], [address] [place] [address] Monocyte abs 1.11(H) 0.20 - 0.80 K/cumm [facility] Comment:Testing performed by : [facility], [address] [place], [place] [id number] Eosinophil abs 0.08 0.00 - 0.50 K/cumm [facility] Comment:Testing performed by : [facility], [address] [place] [address] Basophil abs 0.04 0.00 - 0.10 K/cumm [facility] Comment:Testing performed by : [facility], [address] [place] [address] Neutrophil pct 76.0 % [facility] Comment: Interpretive Data Percent cell count reference ranges are not reported, since discordance with absolute values may lead to misinterpretation of CBC data. Current Interpretive Data was last revised on 2017. Testing performed by: [facility], [address] [place] [address] Lymphocyte pct 8.6 % [facility] Comment: Interpretive Data Percent cell count reference ranges are not reported, since discordance with absolute values may lead to misinterpretation of CBC data. Current Interpretive Data was last revised on 2017. Testing performed by: [facility], [address] [place] [address] Monocyte pct 13.9 % [facility] Comment: Interpretive Data Percent cell count reference ranges are not reported, since discordance with absolute values may lead to misinterpretation of CBC data. Current Interpretive Data was last revised on 2017. Testing performed by: [facility], [address] [place] [phone] Eosinophil pct 1.0 % JOB MCCOLLUM Comment: Interpretive Data Percent cell count reference ranges are not reported, since discordance with absolute values may lead to misinterpretation of CBC data. Current Interpretive Data was last revised on 2017. Testing performed by: [facility], [address] [place] [phone] Basophil pct 0.6 % JOB MCCOLLUM Comment: Interpretive Data Percent cell count reference ranges are not reported, since discordance with absolute values may lead to misinterpretation of CBC data. Current Interpretive Data was last revised on 2017. Testing performed by: [facility], [address] [place] [address] Blood 11/26/2024 11:5 2 AM CDT 11/26/2024 11:57 AM CDT us Franklin Phelps MD PhD LAB BLOOD ORDERABLES Fin al Result [facility] Department of Laboratories [place] [phone] * (ABNORMAL) CBC with auto differential (11/26/2024 11:52 AM CDT) WBC 7.97 3.80 - 9.90 K/cumm Comment:Testing performed by : [facility], [address] [place] [address] Hgb 9.2(L) 13.0 - 17.5 g/dL JOB MCCOLLUM Comment:Testing performed by : [facility], [address] [place] [address] Hct 28.1(L) 38.9 - 50.3 % JOB MCCOLLUM Comment:Testing performed by : [facility], [address] [place] [address] Plt 388 150 - 400 K/cumm JOB MCCOLLUM Comment:Testing performed by : [facility], [address] [place] [address] MPV 6.6(L) 6.8 - 10.4 fL JOB MCCOLLUM Comment:Testing performed by : [facility], [address] [place] [address] RBC 3.45(L) 4.30 - 5.80 M/cumm JOB MCCOLLUM Comment:Testing performed by : [facility], [address] [place], [place] [phone] MCV 81.4 81.3 - 96.4 fL JOB MCCOLLUM Comment:Testing performed by : [facility], [address] [place] [address] MCH 26.6(L) 27.1 - 33.3 pg [facility]OB [facility] Comment:Testing performed by : [facility], [address] [place] [address] MCHC 32.7 32.3 - 35.7 g/dL JOB [facility] Comment:Testing performed by : [facility], [address] [place] [address] RDW CV 19.8(H) 11.1 - 14.9 % JOB [facility] Comment:Testing performed by : [facility], [address] [place] [address] NRBC abs 0.00 0.00 - 0.01 K/cumm JOB [facility] Comment:Testing performed by : [facility], [address] [place] [address] Blood 11/26/2024 11:5 2 AM CDT 11/26/2024 11:57 AM CDT us Franklin Phelps MD PhD LAB BLOOD ORDERABLES Fin al Result JOB MCCOLLUM [facility] Department [place] [address] * Cancer antigen 19-9 (11/26/2024 11:52 AM CDT) CA 19-9 ag 24.8 <=35.0 units/mL Comment: Interpretive Data The Lexi CA 19-9 assay procedure was used. Results from different manufacturers or methods may not be comparable. Serial testing should be performed using the same method. Blood 11/26/2024 11:5 2 AM CDT 11/26/2024 12:22 PM CDT us Franklin Phelps MD PhD LAB BLOOD ORDERABLES Fin al Result [facility] Department [place] [address] * (ABNORMAL) Comprehensive metabolic panel (11/26/2024 11:52 AM CDT) Sodium 134(L) 135 - 145 mmol/L Potassium, pl 3.9 3.3 - 4.9 mmol/L [facility] Chloride 99 97 - 110 mmol/L [facility] CO2 25 22 - 32 mmol/L [facility] Anion gap 10 2 - 15 mmol/L [facility] BUN 8 6 - 25 mg/dL [facility] Creatinine 0.80 0.80 - 1.30 mg/dL [facility] Glucose 332(H) 70 - 199 mg/dL [facility] Comment: Interpretive Data Fasting glucose >/= 126 mg/dl is diagnostic for diabetes. Fasting is defined as no caloric intake for at least 8 hours. Fasting glucose between 100 mg/dl to 125 mg/dl is diagnostic of prediabetes. In a patient with classic symptoms of hyperglycemia or hyperglycemic crisis, a random glucose >/= 200 mg/dl is diagnostic for diabetes. In the absence of unequivocal hyperglycemia, results should be confirmed by repeat testing. The classification and Diagnosis of Diabetes Diabetes Care 202; 46: S19-S40. Current interpretive data was last revised 2022. Calcium 8.9 8.5 - 10.3 mg/dL [facility] Bilirubin, total 0.6 0.1 - 1.2 mg/dL [facility] Protein, pl 6.6 6.5 - 8.5 g/dL [facility] Albumin 3.4(L) 3.5 - 5.0 g/dL [facility] Alk phos 216(H) 40 - 130 Units/L [facility] ALT 32 7 - 55 Units/L [facility] AST 43 10 - 50 Units/L [facility] Blood 11/26/2024 11:5 2 AM CDT 11/26/2024 12:01 PM CDT Franklin Phelps MD PhD LAB BLOOD ORDERABLES Fin al Result Performing Organization Address City/[facility] Co de Phone Number [facility] Department [place] [address] * eGFR (11/12/2024 10:35 AM CDT) eGFR >90 >=60 mL/min/1. 73 m2 Comment: Interpretive Data [...] interpretive data was last reviewed 2021. Blood 11/12/2024 10:3 5 AM CDT 11/12/2024 10:38 AM CDT us Franklin Phelps MD PhD LAB BLOOD ORDERABLES Fin al Result Performing Organization Address [facility] Co de Phone Number [facility] Department [place] [address] * (ABNORMAL) CBC with auto differential (11/12/2024 10:35 AM CDT) WBC 3.41(L) 3.80 - 9.90 K/cumm Comment:Testing performed by : [facility], [address] [place] [address] Hgb 8.8(L) 13.0 - 17.5 g/dL CERNER BJ Comment:Testing performed by : [facility], [address] [place] [address] Hct 26.7(L) 38.9 - 50.3 % CERNER BJ Comment:Testing performed by : [facility], [address] [place] [address] Plt 155 150 - 400 K/cumm CERNER BJ Comment:Testing performed by : [facility], [address] [place] [address] MPV 7.1 6.8 - 10.4 fL CERNER BJ Comment:Testing performed by : [facility], [address] [place] [address] RBC 3.31(L) 4.30 - 5.80 M/cumm CERNER BJ Comment:Testing performed by : [facility], [address] [place] [address] MCV 80.9(L) 81.3 - 96.4 fL CERNER BJ Comment:Testing performed by : [facility], [address] [place] [address] MCH 26.7(L) 27.1 - 33.3 pg CERNER BJ Comment:Testing performed by : [facility], [address] [place] [address] MCHC 33.0 32.3 - 35.7 g/dL CERNER BJ Comment:Testing performed by : [facility], [address] [place] [address] RDW CV 15.5(H) 11.1 - 14.9 % CERNER BJ Comment:Testing performed by : [facility], [address] [place] [address] NRBC abs 0.00 0.00 - 0.01 K/cumm CERUBALDO BJ Comment:Testing performed by : [facility], [address] [place], [place] [phone] Blood 11/12/2024 10:3 5 AM CDT 11/12/2024 10:37 AM CDT us Franklin Phelps MD PhD LAB BLOOD ORDERABLES Fin al Result [facility] Department [place] [address] * Manual Differential (11/12/2024 10:35 AM CDT) Cells Counted 176 Comment:Testing performed by : [facility], [address] [place] [address] Neutrophil abs 2.28 1.50 - 6.50 K/cumm CERNER BJ Comment:Testing performed by : [facility], [address] [place], [place] [phone] Lymphocyte abs 0.82 0.80 - 3.30 K/cumm CERNER BJ Comment:Testing performed by : [facility], [address] [place], [place] [phone] Monocyte abs 0.20 0.20 - 0.80 K/cumm CERUBALDO BJ Comment:Testing performed by : [facility], [address] [place] [address] Eosinophil abs 0.10 0.00 - 0.50 K/cumm CERUBALDO BJ Comment:Testing performed by : [facility], [address] [place], [place] [phone] Basophil abs 0.03 0.00 - 0.10 K/cumm CERUBALDO BJ Comment:Testing performed by : [facility], [address] [place], [place] [phone] Neutrophil pct 67.0 % CERUBALDO BJ Comment: Interpretive Data Percent cell count reference ranges are not reported, since discordance with absolute values may lead to misinterpretation of CBC data. Current Interpretive Data was last revised on 2017. Testing performed by: [facility], [address] [place] [phone] Lymphocyte pct 24.0 % [facility] Comment: Interpretive Data Percent cell count reference ranges are not reported, since discordance with absolute values may lead to misinterpretation of CBC data. Current Interpretive Data was last revised on 2017. Testing performed by: [facility], [address] [place] [phone] Monocyte pct 6.0 % [facility] Comment: Interpretive Data Percent cell count reference ranges are not reported, since discordance with absolute values may lead to misinterpretation of CBC data. Current Interpretive Data was last revised on 2017. Testing performed by: [facility], [address] [place] [phone] Eosinophil pct 3.0 % [facility] Comment: Interpretive Data Percent cell count reference ranges are not reported, since discordance with absolute values may lead to misinterpretation of CBC data. Current Interpretive Data was last revised on 2017. Testing performed by: [facility], [address] [place] [phone] Basophil pct 1.0 % [facility] Comment: Interpretive Data Percent cell count reference ranges are not reported, since discordance with absolute values may lead to misinterpretation of CBC data. Current Interpretive Data was last revised on 2017. Testing performed by: [facility], [address] [place] [phone] RBC morphology Normal [facility] Comment:Testing performed by : [facility], [address] [place] [phone] Platelet estimate Adequate [facility] Comment:Testing performed by : [facility], [address] [place] [phone] Blood 11/12/2024 10:3 5 AM CDT 11/12/2024 10:37 AM CDT us Franklin Phelps MD PhD LAB BLOOD ORDERABLES Fin al Result [facility] Department [place] [address] * (ABNORMAL) Comprehensive metabolic panel (11/12/2024 10:35 AM CDT) Sodium 136 135 - 145 mmol/L Potassium, pl 4.0 3.3 - 4.9 mmol/L [facility] Chloride 100 97 - 110 mmol/L [facility] CO2 26 22 - 32 mmol/L [facility] Anion gap 10 2 - 15 mmol/L [facility] BUN 11 6 - 25 mg/dL [facility] Creatinine 0.82 0.80 - 1.30 mg/dL [facility] Glucose 258(H) 70 - 199 mg/dL [facility] Comment: Interpretive Data Fasting glucose >/= 126 mg/dl is diagnostic for diabetes. Fasting is defined as no caloric intake for at least 8 hours. Fasting glucose between 100 mg/dl to 125 mg/dl is diagnostic of prediabetes. In a patient with classic symptoms of hyperglycemia or hyperglycemic crisis, a random glucose >/= 200 mg/dl is diagnostic for diabetes. In the absence of unequivocal hyperglycemia, results should be confirmed by repeat testing. The classification and Diagnosis of Diabetes Diabetes Care 202; 46: S19-S40. Current interpretive data was last revised 2022. Calcium 9.1 8.5 - 10.3 mg/dL [facility] Bilirubin, total 0.3 0.1 - 1.2 mg/dL [facility] Protein, pl 6.6 6.5 - 8.5 g/dL [facility] Albumin 3.5 3.5 - 5.0 g/dL [facility] Alk phos 217(H) 40 - 130 Units/L [facility] ALT 38 7 - 55 Units/L [facility] AST 35 10 - 50 Units/L [facility] Blood 11/12/2024 10:3 5 AM CDT 11/12/2024 10:38 AM CDT Franklin Phelps MD PhD LAB BLOOD ORDERABLES Fin al Result Performing Organization Address [facility] de Phone Number [facility] Department [place] [address] * eGFR (11/05/2024 2:26 PM CDT) Pathologist [facility] eGFR >90 >=60 mL/min/1. 73 m2 Comment: Interpretive Data [...] interpretive data was last reviewed 2021. Blood 11/05/2024 2:26 PM CDT 11/05/2024 2:34 PM CDT us Franklin hPelps MD PhD LAB BLOOD ORDERABLES Fin al Result Performing Organization Address [facility] Co de Phone Number JOB MCCOLLUM [facility] Department [place] [address] * (ABNORMAL) CBC with auto differential (11/05/2024 2:26 PM CDT) [facility] WBC 4.85 3.80 - 9.90 K/cumm Comment:Testing performed by : [facility], [address] [place] [phone] Hgb 8.8(L) 13.0 - 17.5 g/dL JOB [facility] Comment:Testing performed by : [facility], [address] [place], [place] [phone] Hct 26.0(L) 38.9 - 50.3 % CERNER BJ Comment:Testing performed by : [facility], [address] [place], [place] [phone] Plt 239 150 - 400 K/cumm CERNER BJ Comment:Testing performed by : [facility], [address] [place], [place] [phone] MPV 6.5(L) 6.8 - 10.4 fL CERNER BJ Comment:Testing performed by : [facility], [address] [place], [place] [phone] RBC 3.29(L) 4.30 - 5.80 M/cumm CERNER BJ Comment:Testing performed by : [facility], [address] [place], [place] [phone] MCV 79.0(L) 81.3 - 96.4 fL CERNER BJ Comment:Testing performed by : [facility], [address] [place], [place] [phone] MCH 26.8(L) 27.1 - 33.3 pg CERNER BJ Comment:Testing performed by : [facility], [address] [place], [place] [phone] MCHC 34.0 32.3 - 35.7 g/dL CERNER BJ Comment:Testing performed by : [facility], [address] [place], [place] [phone] RDW CV 15.1(H) 11.1 - 14.9 % CERNER BJ Comment:Testing performed by : [facility], [address] [place], [place] [phone] NRBC abs 0.00 0.00 - 0.01 K/cumm CERNER BJ Comment:Testing performed by : [facility], [address] [place], [place] [phone] Blood 11/05/2024 2:26 PM CDT 11/05/2024 2:34 PM CDT us Franklin Phelps MD PhD LAB BLOOD ORDERABLES Fin al Result [facility] Department [place] [address] * (ABNORMAL) Manual Differential (11/05/2024 2:26 PM CDT) Cells Counted 200 Comment:Testing performed by : [facility], [address] [place] [phone] Neutrophil abs 3.83 1.50 - 6.50 K/cumm CERNER BJ Comment:Testing performed by : [facility], [address] [place], [place] [phone] Lymphocyte abs 0.63(L) 0.80 - 3.30 K/cumm CERNER BJ Comment:Testing performed by : [facility], [address] [place] [phone] Monocyte abs 0.15(L) 0.20 - 0.80 K/cumm CERNER BJ Comment:Testing performed by : [facility], [address] [place], [place] [phone] Eosinophil abs 0.05 0.00 - 0.50 K/cumm CERNER BJ Comment:Testing performed by : [facility], [address] [place], [place] [phone] Basophil abs 0.10 0.00 - 0.10 K/cumm CERNER BJ Comment:Testing performed by : [facility], [address] [place], [place] [phone] Neutrophil pct 79.0 % CERNER BJ Comment: Interpretive Data Percent cell count reference ranges are not reported, since discordance with absolute values may lead to misinterpretation of CBC data. Current Interpretive Data was last revised on 2017. Testing performed by: [facility], [address] [place], [place] [phone] Lymphocyte pct 13.0 % CERNER BJ Comment: Interpretive Data Percent cell count reference ranges are not reported, since discordance with absolute values may lead to misinterpretation of CBC data. Current Interpretive Data was last revised on 2017. Testing performed by: [facility], [address] [place] [phone] Monocyte pct 3.0 % [facility] Comment: Interpretive Data Percent cell count reference ranges are not reported, since discordance with absolute values may lead to misinterpretation of CBC data. Current Interpretive Data was last revised on 2017. Testing performed by: [facility], [address] [place] [phone] Eosinophil pct 1.0 % [facility] Comment: Interpretive Data Percent cell count reference ranges are not reported, since discordance with absolute values may lead to misinterpretation of CBC data. Current Interpretive Data was last revised on 2017. Testing performed by: [facility], [address] [place] [phone] Basophil pct 2.0 % [facility] Comment: Interpretive Data Percent cell count reference ranges are not reported, since discordance with absolute values may lead to misinterpretation of CBC data. Current Interpretive Data was last revised on 2017. Testing performed by: [facility], [address] [place] [phone] Metamyelocyte pct 1.0(H) 0.0 - 0.0 % [facility] Comment:Testing performed by : [facility], [address] [place] [phone] Myelocyte pct 2.0(H) 0.0 - 0.0 % [facility] Comment:Testing performed by : [facility], [address] [place] [phone] Macrocytes 1+(A) [facility] Comment:Testing performed by : [facility], [address] [place] [phone] Platelet estimate Adequate [facility] Comment:Testing performed by : [facility], [address] [place] [phone] Blood 11/05/2024 2:26 PM CDT 11/05/2024 2:34 PM CDT us Franklin Phelps MD PhD LAB BLOOD ORDERABLES Fin al Result [facility] Department [place] [address] * (ABNORMAL) Comprehensive metabolic panel (11/05/2024 2:26 PM CDT) Sodium 140 135 - 145 mmol/L Potassium, pl 3.7 3.3 - 4.9 mmol/L CERNER [facility] Chloride 104 97 - 110 mmol/L CERNER [facility] CO2 26 22 - 32 mmol/L CERNER [facility] Anion gap 10 2 - 15 mmol/L [facility] BUN 10 6 - 25 mg/dL CERNER [facility] Creatinine 0.78(L) 0.80 - 1.30 mg/dL [facility] Glucose 231(H) 70 - 199 mg/dL [facility] Comment: Interpretive Data Fasting glucose >/= 126 mg/dl is diagnostic for diabetes. Fasting is defined as no caloric intake for at least 8 hours. Fasting glucose between 100 mg/dl to 125 mg/dl is diagnostic of prediabetes. In a patient with classic symptoms of hyperglycemia or hyperglycemic crisis, a random glucose >/= 200 mg/dl is diagnostic for diabetes. In the absence of unequivocal hyperglycemia, results should be confirmed by repeat testing. The classification and Diagnosis of Diabetes Diabetes Care 202; 46: S19-S40. Current interpretive data was last revised 2022. Calcium 9.0 8.5 - 10.3 mg/dL CERNER [facility] Bilirubin, total 0.2 0.1 - 1.2 mg/dL [facility] Protein, pl 6.7 6.5 - 8.5 g/dL [facility] Albumin 3.3(L) 3.5 - 5.0 g/dL [facility] Alk phos 234(H) 40 - 130 Units/L CERNER [facility] ALT 44 7 - 55 Units/L CERNER [facility] AST 36 10 - 50 Units/L [facility] Blood 11/05/2024 2:26 PM CDT 11/05/2024 2:34 PM CDT Franklin Phelps MD PhD LAB BLOOD ORDERABLES Fin al Result Performing Organization Address City/[facility] Co de Phone Number JOB MCCOLLUM [facility] Department [place] [address] * eGFR (10/29/2024 8:05 AM CDT) Pathologist [facility] eGFR >90 >=60 mL/min/1. 73 m2 Comment: Interpretive Data [...] interpretive data was last reviewed 2021. Blood 10/29/2024 8:05 AM CDT 10/29/2024 8:09 AM CDT us Franklin Phelps MD PhD LAB BLOOD ORDERABLES Fin al Result Performing Organization Address [facility] Co de Phone Number JOB VEDA [facility] Department [place] [address] * Differential, auto (10/29/2024 8:05 AM CDT) Pathologist [facility] Neutrophil abs 4.64 1.50 - 6.50 K/cumm Comment:Testing performed by : [facility], [address] [place] [phone] Lymphocyte abs 0.86 0.80 - 3.30 K/cumm JOB [facility] Comment:Testing performed by : [facility], [address] [place] [phone] Monocyte abs 0.42 0.20 - 0.80 K/cumm [facility] Comment:Testing performed by : [facility], [address] [place] [phone] Eosinophil abs 0.13 0.00 - 0.50 K/cumm [facility] Comment:Testing performed by : [facility], [address] [place] [phone] Basophil abs 0.06 0.00 - 0.10 K/cumm [facility] Comment:Testing performed by : [facility], [address] [place] [phone] Neutrophil pct 76.0 % [facility] Comment: Interpretive Data Percent cell count reference ranges are not reported, since discordance with absolute values may lead to misinterpretation of CBC data. Current Interpretive Data was last revised on 2017. Testing performed by: [facility], [address] [place] [phone] Lymphocyte pct 14.1 % [facility] Comment: Interpretive Data Percent cell count reference ranges are not reported, since discordance with absolute values may lead to misinterpretation of CBC data. Current Interpretive Data was last revised on 2017. Testing performed by: [facility], [address] [place] [phone] Monocyte pct 6.8 % [facility] Comment: Interpretive Data Percent cell count reference ranges are not reported, since discordance with absolute values may lead to misinterpretation of CBC data. Current Interpretive Data was last revised on 2017. Testing performed by: [facility], [address] [place] [phone] Eosinophil pct 2.1 % [facility] Comment: Interpretive Data Percent cell count reference ranges are not reported, since discordance with absolute values may lead to misinterpretation of CBC data. Current Interpretive Data was last revised on 2017. Testing performed by: [facility], [address] [place] [phone] Basophil pct 1.0 % [facility] Comment: Interpretive Data Percent cell count reference ranges are not reported, since discordance with absolute values may lead to misinterpretation of CBC data. Current Interpretive Data was last revised on 2017. Testing performed by: [facility], [address] [place] [address] Blood 10/29/2024 8:05 AM CDT 10/29/2024 8:10 AM CDT us Franklin Phelps MD PhD LAB BLOOD ORDERABLES Fin al Result [facility] Department [place] [address] * (ABNORMAL) CBC with auto differential (10/29/2024 8:05 AM CDT) WBC 6.10 3.80 - 9.90 K/cumm Comment:Testing performed by : [facility], [address] [place] [address] Hgb 8.6(L) 13.0 - 17.5 g/dL CERNER [facility] Comment:Testing performed by : [facility], [address] [place] [address] Hct 26.0(L) 38.9 - 50.3 % CERUBALDO BJ Comment:Testing performed by : [facility], [address] [place] [address] Plt 357 150 - 400 K/cumm CERUBALDO BJ Comment:Testing performed by : [facility], [address] [place] [address] MPV 6.9 6.8 - 10.4 fL CERUBALDO BJ Comment:Testing performed by : [facility], [address] [place] [address] RBC 3.20(L) 4.30 - 5.80 M/cumm CERUBALDO BJ Comment:Testing performed by : [facility], [address] [place] [address] MCV 81.3 81.3 - 96.4 fL CERUBALDO [facility] Comment:Testing performed by : [facility], [address] [place] [phone] MCH 26.8(L) 27.1 - 33.3 pg JOB [facility] Comment:Testing performed by : [facility], [address] [place], [place] [phone] MCHC 33.0 32.3 - 35.7 g/dL JOB MCCOLLUM Comment:Testing performed by : [facility], [address] [place], [place] [phone] RDW CV 14.9 11.1 - 14.9 % JOB [facility] Comment:Testing performed by : [facility], [address] [place], [place] [phone] NRBC abs 0.00 0.00 - 0.01 K/cumm JOB [facility] Comment:Testing performed by : [facility], [address] [place] [phone] Blood 10/29/2024 8:05 AM CDT 10/29/2024 8:10 AM CDT us Farnklin Phelps MD PhD LAB BLOOD ORDERABLES Fin al Result [facility] Department [place] [address] * (ABNORMAL) Comprehensive metabolic panel (10/29/2024 8:05 AM CDT) Sodium 138 135 - 145 mmol/L Potassium, pl 4.3 3.3 - 4.9 mmol/L [facility] Chloride 102 97 - 110 mmol/L [facility] CO2 27 22 - 32 mmol/L [facility] Anion gap 9 2 - 15 mmol/L [facility] BUN 12 6 - 25 mg/dL [facility] Creatinine 0.82 0.80 - 1.30 mg/dL [facility] Glucose 201(H) 70 - 199 mg/dL [facility] Comment: Interpretive Data Fasting glucose >/= 126 mg/dl is diagnostic for diabetes. Fasting is defined as no caloric intake for at least 8 hours. Fasting glucose between 100 mg/dl to 125 mg/dl is diagnostic of prediabetes. In a patient with classic symptoms of hyperglycemia or hyperglycemic crisis, a random glucose >/= 200 mg/dl is diagnostic for diabetes. In the absence of unequivocal hyperglycemia, results should be confirmed by repeat testing. The classification and Diagnosis of Diabetes Diabetes Care 2021; 46: S19-S40. Current interpretive data was last revised 2022. Calcium 9.2 8.5 - 10.3 mg/dL CERNER [facility] Bilirubin, total 0.3 0.1 - 1.2 mg/dL CERNER [facility] Protein, pl 6.9 6.5 - 8.5 g/dL CERNER [facility] Albumin 3.2(L) 3.5 - 5.0 g/dL CERNER [facility] Alk phos 299(H) 40 - 130 Units/L CERNER [facility] ALT 43 7 - 55 Units/L CERNER [facility] AST 27 10 - 50 Units/L [facility] Blood 10/29/2024 8:05 AM CDT 10/29/2024 8:09 AM CDT Franklin Phelps MD PhD LAB BLOOD ORDERABLES Fin al Result JOB [facility] Department [place] [address] * SCAN - PATHOLOGY (10/24/2024 11:55 AM CDT) Provider Scanning Final Result * CT chest with contrast (10/23/2024 3:45 PM CDT) Anatomical Region Laterality Modality Body N/A Computed Tomogra phy 10/23/2024 4:20 PM CDT Impressions 10/23/2024 6:21 PM CDT 1. Prominent paratracheal lymph node measuring up to 1.3 cm in short axis may be reactive versus site of metastatic disease. Recommend attention on follow-up exam. 2. Tiny 2mm nodule in the right upper lobe, recommend attention on follow-up. 3. Numerous hypoattenuating liver lesions and periportal lymphadenopathy compatible with metastatic disease is better evaluated on CT of the abdomen and pelvis from 09/30/2024. 4. Unchanged indeterminate left adrenal thickening. 5. No evidence of metastatic disease in the pelvis. Dictated by: Matteo Kessler MD The radiology attending physician has personally reviewed this study, and had reviewed and/or edited this written report and agrees with it. Electronically signed by: Og Estes M.D. Narrative 10/23/2024 6:21 PM CDT EXAMINATION: Computed tomography of the chest and pelvis with intravenous contrast HISTORY: Patient with metastatic duodenal adenocarcinoma. TECHNIQUE: Transaxial computed tomographic images of the chest and pelvis were obtained with intravenous contrast according to the standard protocol after the uneventful administration of 92 mL Opti-Ray 350 intravenous contrast. COMPARISON: CT from 09/30/2024 FINDINGS: Chest: Streak artifact of the upper chest from shoulder arthroplasty. Right internal jugular vein port catheter with tip at the superior tracheal junction. No supraclavicular or axillary lymphadenopathy. Prominent paratracheal lymph node in the upper mediastinum measures 1.3 cm in short axis which may be reactive. Trachea appears normal. Heart size is borderline enlarged. No pericardial effusion. 2mm nodule in the right upper lobe at table position -1106. Mild atelectasis. No pleural effusion. No pneumothorax. Imaged portion of the abdomen reveals numerous hypoattenuating liver lesions, the greatest of which measures up to 9.2 cm. Thickening of the left adrenal gland is stable from prior imaging and is indeterminate. Periportal lymph nodes are d prominent measuring up to 1.1 cm. Degenerative changes of the thoracic spine. No aggressive osseous lesion. Pelvis: Imaged large and small bowel is nondilated without evidence of obstruction. Bladder appears normal. Left hip arthroplasty present. Partially calcified mesenteric nodule likely sequela of old fat necrosis versus partially calcified lymph node. No aggressive osseous lesion. Pars defects at L5. Right gluteal lipoma present. Small umbilical hernia. Procedure Note Og Estes MD - 10/23/2024 EXAMINATION: Computed tomography of the chest and pelvis with intravenous contrast HISTORY: Patient with metastatic duodenal adenocarcinoma. TECHNIQUE: Transaxial computed tomographic images of the chest and pelvis were obtained with intravenous contrast according to the standard protocol after the uneventful administration of 92 mL Opti-Ray 350 intravenous contrast. COMPARISON: CT from 09/30/2024 FINDINGS: Chest: Streak artifact of the upper chest from shoulder arthroplasty. Right internal jugular vein port catheter with tip at the superior tracheal junction. No supraclavicular or axillary lymphadenopathy. Prominent paratracheal lymph node in the upper mediastinum measures 1.3 cm in short axis which may be reactive. Trachea appears normal. Heart size is borderline enlarged. No pericardial effusion. 2mm nodule in the right upper lobe at table position -1106. Mild atelectasis. No pleural effusion. No pneumothorax. Imaged portion of the abdomen reveals numerous hypoattenuating liver lesions, the greatest of which measures up to 9.2 cm. Thickening of the left adrenal gland is stable from prior imaging and is indeterminate. Periportal lymph nodes are d prominent measuring up to 1.1 cm. Degenerative changes of the thoracic spine. No aggressive osseous lesion. Pelvis: Imaged large and small bowel is nondilated without evidence of obstruction. Bladder appears normal. Left hip arthroplasty present. Partially calcified mesenteric nodule likely sequela of old fat necrosis versus partially calcified lymph node. No aggressive osseous lesion. Pars defects at L5. Right gluteal lipoma present. Small umbilical hernia. IMPRESSION: 1. Prominent paratracheal lymph node measuring up to 1.3 cm in short axis may be reactive versus site of metastatic disease. Recommend attention on follow-up exam. 2. Tiny 2mm nodule in the right upper lobe, recommend attention on follow-up. 3. Numerous hypoattenuating liver lesions and periportal lymphadenopathy compatible with metastatic disease is better evaluated on CT of the abdomen and pelvis from 09/30/2024. 4. Unchanged indeterminate left adrenal thickening. 5. No evidence of metastatic disease in the pelvis. Dictated by: Matteo Kessler MD The radiology attending physician has personally reviewed this study, and had reviewed and/or edited this written report and agrees with it. Electronically signed by: Og Estes M.D. us Franklin Phelps MD PhD IMG CT PROCEDURES Final Result * CT pelvis with contrast (10/23/2024 3:44 PM CDT) Anatomical Region Laterality Modality Body N/A Computed Tomogra phy 10/23/2024 4:20 PM CDT Impressions 10/23/2024 6:21 PM CDT 1. Prominent paratracheal lymph node measuring up to 1.3 cm in short axis may be reactive versus site of metastatic disease. Recommend attention on follow-up exam. 2. Tiny 2mm nodule in the right upper lobe, recommend attention on follow-up. 3. Numerous hypoattenuating liver lesions and periportal lymphadenopathy compatible with metastatic disease is better evaluated on CT of the abdomen and pelvis from 09/30/2024. 4. Unchanged indeterminate left adrenal thickening. 5. No evidence of metastatic disease in the pelvis. Dictated by: Matteo Kessler MD The radiology attending physician has personally reviewed this study, and had reviewed and/or edited this written report and agrees with it. Electronically signed by: Og Estes M.D. Narrative 10/23/2024 6:21 PM CDT EXAMINATION: Computed tomography of the chest and pelvis with intravenous contrast HISTORY: Patient with metastatic duodenal adenocarcinoma. TECHNIQUE: Transaxial computed tomographic images of the chest and pelvis were obtained with intravenous contrast according to the standard protocol after the uneventful administration of 92 mL Opti-Ray 350 intravenous contrast. COMPARISON: CT from 09/30/2024 FINDINGS: Chest: Streak artifact of the upper chest from shoulder arthroplasty. Right internal jugular vein port catheter with tip at the superior tracheal junction. No supraclavicular or axillary lymphadenopathy. Prominent paratracheal lymph node in the upper mediastinum measures 1.3 cm in short axis which may be reactive. Trachea appears normal. Heart size is borderline enlarged. No pericardial effusion. 2mm nodule in the right upper lobe at table position -1106. Mild atelectasis. No pleural effusion. No pneumothorax. Imaged portion of the abdomen reveals numerous hypoattenuating liver lesions, the greatest of which measures up to 9.2 cm. Thickening of the left adrenal gland is stable from prior imaging and is indeterminate. Periportal lymph nodes are d prominent measuring up to 1.1 cm. Degenerative changes of the thoracic spine. No aggressive osseous lesion. Pelvis: Imaged large and small bowel is nondilated without evidence of obstruction. Bladder appears normal. Left hip arthroplasty present. Partially calcified mesenteric nodule likely sequela of old fat necrosis versus partially calcified lymph node. No aggressive osseous lesion. Pars defects at L5. Right gluteal lipoma present. Small umbilical hernia. Procedure Note Og Estes MD - 10/23/2024 EXAMINATION: Computed tomography of the chest and pelvis with intravenous contrast HISTORY: Patient with metastatic duodenal adenocarcinoma. TECHNIQUE: Transaxial computed tomographic images of the chest and pelvis were obtained with intravenous contrast according to the standard protocol after the uneventful administration of 92 mL Opti-Ray 350 intravenous contrast. COMPARISON: CT from 09/30/2024 FINDINGS: Chest: Streak artifact of the upper chest from shoulder arthroplasty. Right internal jugular vein port catheter with tip at the superior tracheal junction. No supraclavicular or axillary lymphadenopathy. Prominent paratracheal lymph node in the upper mediastinum measures 1.3 cm in short axis which may be reactive. Trachea appears normal. Heart size is borderline enlarged. No pericardial effusion. 2mm nodule in the right upper lobe at table position -1106. Mild atelectasis. No pleural effusion. No pneumothorax. Imaged portion of the abdomen reveals numerous hypoattenuating liver lesions, the greatest of which measures up to 9.2 cm. Thickening of the left adrenal gland is stable from prior imaging and is indeterminate. Periportal lymph nodes are d prominent measuring up to 1.1 cm. Degenerative changes of the thoracic spine. No aggressive osseous lesion. Pelvis: Imaged large and small bowel is nondilated without evidence of obstruction. Bladder appears normal. Left hip arthroplasty present. Partially calcified mesenteric nodule likely sequela of old fat necrosis versus partially calcified lymph node. No aggressive osseous lesion. Pars defects at L5. Right gluteal lipoma present. Small umbilical hernia. IMPRESSION: 1. Prominent paratracheal lymph node measuring up to 1.3 cm in short axis may be reactive versus site of metastatic disease. Recommend attention on follow-up exam. 2. Tiny 2mm nodule in the right upper lobe, recommend attention on follow-up. 3. Numerous hypoattenuating liver lesions and periportal lymphadenopathy compatible with metastatic disease is better evaluated on CT of the abdomen and pelvis from 09/30/2024. 4. Unchanged indeterminate left adrenal thickening. 5. No evidence of metastatic disease in the pelvis. Dictated by: Matteo Kessler MD The radiology attending physician has personally reviewed this study, and had reviewed and/or edited this written report and agrees with it. Electronically signed by: Og Estes M.D. Franklin Phelps MD PhD IMG CT PROCEDURES Final Result * IR Port Placement Chest > 5 Years (10/23/2024 2:29 PM CDT) Anatomical Region Laterality Modality Chest N/A Radio Fluoroscop y 10/23/2024 2:42 PM CDT Impressions 10/23/2024 4:40 PM CDT Successful chest wall port placement. PLAN: The catheter is ready for immediate use. Please note that a power injectable port was placed. When treatment is completed, removal can be scheduled by calling [facility] - [phone] [facility] - [phone] Dictated by: Simone Schrader M.D. The radiology attending physician has personally reviewed this study, and had reviewed and/or edited this written report and agrees with it. Electronically signed by: Peter Silver M.D. Narrative 10/23/2024 4:40 PM CDT EXAMINATION: PORT PLACEMENT USING ULTRASOUND GUIDANCE (STD TECHNIQUE) HISTORY: Patient is a 59-year-old male with duodenal adenocarcinoma. IR consulted for chemotherapy. ATTENDING PRESENCE: Peter Silver M.D., the attending radiologist was present from the beginning to the end of the procedure. SEDATION: Procedural sedation was administered under the attending physician's direction and continuous monitoring by a trained nurse specialist who was independent from those actually performing the procedure. Total monitored sedation time was 30 minutes. TECHNIQUE: The risks, benefits and alternatives were discussed and informed consent was obtained. Prior to beginning the procedure, Windsor Protocol was used to confirm the patient's identity and planned procedure. Fluoroscopy time has been recorded in the electronic medical record. Prior to the procedure, the central veins were evaluated by ultrasound, an image of the patent vein was recorded and placed in the patient's electronic medical record. Maximum sterile barriers including cap, mask, hand hygiene, sterile gloves, sterile gown, large sterile drape and 2% chlorhexidine for cutaneous antisepsis were used. The skin over the right internal jugular vein was sterilely prepped, draped and infiltrated with 1% buffered lidocaine. The vein was accessed with a 21 gauge needle using realtime ultrasound guidance. A guidewire and catheter were then passed centrally using fluoroscopic guidance. The intravascular length from the access site to the right atrium was then measured. After infiltrating the skin in the subclavicular region with 1% buffered lidocaine, a short transverse incision was made and the pocket for the power injectable reservoir was formed by blunt dissection. The catheter was tunneled to the IJ access site, cut to the appropriate length and inserted through a peel-away sheath. The catheter was flushed with 100U/ml heparin and the access needle removed. The deep tissues were approximated using 2-0 Vicryl and the incision closed using skin glue. The incision in the lower neck was closed in a similar fashion with 4-0 Monocryl. ESTIMATED BLOOD LOSS: Minimal. CONDITION: Stable DISCHARGED TO: outpatient recovery. FINDINGS: Ultrasound image shows a patent vein in the lower neck. The final fluoroscopic image demonstrates the catheter with its tip at the cavoatrial junction. No complications are seen. Procedure Note Peter Silver MD - 10/23/2024 EXAMINATION: PORT PLACEMENT USING ULTRASOUND GUIDANCE (STD TECHNIQUE) HISTORY: Patient is a 59-year-old male with duodenal adenocarcinoma. IR consulted for chemotherapy. ATTENDING PRESENCE: Peter iSlver M.D., the attending radiologist was present from the beginning to the end of the procedure. SEDATION: Procedural sedation was administered under the attending physician's direction and continuous monitoring by a trained nurse specialist who was independent from those actually performing the procedure. Total monitored sedation time was 30 minutes. TECHNIQUE: The risks, benefits and alternatives were discussed and informed consent was obtained. Prior to beginning the procedure, Windsor Protocol was used to confirm the patient's identity and planned procedure. Fluoroscopy time has been recorded in the electronic medical record. Prior to the procedure, the central veins were evaluated by ultrasound, an image of the patent vein was recorded and placed in the patient's electronic medical record. Maximum sterile barriers including cap, mask, hand hygiene, sterile gloves, sterile gown, large sterile drape and 2% chlorhexidine for cutaneous antisepsis were used. The skin over the right internal jugular vein was sterilely prepped, draped and infiltrated with 1% buffered lidocaine. The vein was accessed with a 21 gauge needle using realtime ultrasound guidance. A guidewire and catheter were then passed centrally using fluoroscopic guidance. The intravascular length from the access site to the right atrium was then measured. After infiltrating the skin in the subclavicular region with 1% buffered lidocaine, a short transverse incision was made and the pocket for the power injectable reservoir was formed by blunt dissection. The catheter was tunneled to the IJ access site, cut to the appropriate length and inserted through a peel-away sheath. The catheter was flushed with 100U/ml heparin and the access needle removed. The deep tissues were approximated using 2-0 Vicryl and the incision closed using skin glue. The incision in the lower neck was closed in a similar fashion with 4-0 Monocryl. ESTIMATED BLOOD LOSS: Minimal. CONDITION: Stable DISCHARGED TO: outpatient recovery. FINDINGS: Ultrasound image shows a patent vein in the lower neck. The final fluoroscopic image demonstrates the catheter with its tip at the cavoatrial junction. No complications are seen. IMPRESSION: Successful chest wall port placement. PLAN: The catheter is ready for immediate use. Please note that a power injectable port was placed. When treatment is completed, removal can be scheduled by calling [facility] - [phone] [facility] - [phone] Dictated by: Simone Schrader M.D. The radiology attending physician has personally reviewed this study, and had reviewed and/or edited this written report and agrees with it. Electronically signed by: Peter Silver M.D. Franklin Phelps MD PhD IMG IR PROCEDURES Final Result * ME AN ELECTIVE ENDOTRACHEAL AIRWAY, ME AN PROCEDURE PLACEHOLDER (10/18/2024 8:28 AM CDT) Narrative Radha Rutherford CRNA - 10/18/2024 8:28 AM CDT Radha Rutherford CRNA 10/18/2024 8:29 AM Airway Patient location: OR Urgency: elective Date/time: 10/18/2024 8:20 AM Indications for airway management: anesthesia and airway protection Difficult airway: no Staff: Placed by: GUEST SERVICE REPRESENTATIVE: Radha Rutherford CRNA Emergent airway documentation: Risks and benefits discussed: yes Consent obtained: yes Consent given by: patient Airway prep: Preoxygenated: yes Patient position: sniffing Mask difficulty assessment: 0 - not attempted Spontaneous ventilation during airway: absent Sedation level during airway: GA Final airway details: Final airway type: endotracheal airway Tube type: ETT ETT size: 8.0 mm Cuffed: yes Technique used for successful ETT placement: video laryngoscopy Devices/Methods used in placement: intubating stylet Insertion site: oral Blade type: Craig Video blade type: CMAC Blade size: 4 Cormack-Lehane (direct): grade IIa - partial view of glottis Cuff volume: 8 mL Cuff inflated with: air ETT to lips: 24 cm Placement verified by: auscultation and CO2 detection Airway secured with: silk tape Number of attempts: 1no us Marcial Michel MD ANESTHESIA ORDERABLES Final Resu lt * Small bowel enteroscopy (10/18/2024 8:13 AM CDT) Anatomical Region Laterality Modality Other Narrative Procedure Note Arabella Painting MD - 10/18/2024 8:13 AM CDT GI ENDOSCOPY VISALIA Patient Name: Oc Duron Procedure Date: 10/18/2024 8:13 AM Date of : 1965 Admit Type: Outpatient Age: 59 Gender: Male Attending MD: Arabella Painting M.D. Room: [facility] ENDOSCOPY ROOM 9 Note Status: Finalized Procedure: Small bowel enteroscopy Indications: Abnormal abdominal CT showing possible mass in the distal duodenum, known liver masses positive for adenocarcinoma. The procedure was originially scheduled as an EGD, but considering theindication, an SBE was performed to ensure the distal duodenum could be reached. Referring MD: Heidi Montes De Oca M.D. Providers: Arabella Painting M.D. Medicines: General Anesthesia Complications: No immediate complications. Estimated Blood Loss: Estimated blood loss: none. Procedure: Pre-Anesthesia Assessment: - Immediately prior to administration ofmedications, the patient was re-assessed for adequacy to receive sedatives. - Immediately prior to administration ofmedications, the patient was re-assessed for adequacy to receive sedatives. After obtaining informed consent, the endoscope was passed under direct vision. Throughout theprocedure, the patient's blood pressure, pulse, and oxygen saturations were monitored continuously. The scopewas passed under direct vision. The PCF [id number] endoscope was introduced through the mouth, and advanced to the proximal jejunum. The upper GI endoscopy was accomplished without difficulty. The patient tolerated the procedure well. Findings: The esophagus was normal. The stomach was normal. The examined duodenum was normal. There was no evidence of significant pathology in the entire examined portion of jejunum. Impression: - Normal esophagus. - Normal stomach. - Normal examined duodenum. - The examined portion of the jejunum was normal. - No specimens collected. Recommendation: - Return to referring physician as previously scheduled. Attending Participation: I personally performed the entire procedure. Electronically signed by Arabella Painting MD Arabella Painting M.D. 10/18/2024 8:48:00 AM . Number of Addenda: 0 Note Initiated On: 10/18/2024 8:13 AM us Arabella Painting MD ENDOSCOPY PROCEDURES Final Res ult * POCT glucose (10/18/2024 7:42 AM CDT) Glucose, POC 194 70 - 199 mg/dL Blood 10/18/2024 7:42 AM CDT 10/18/2024 7:42 AM CDT Heidi Montes De Oca MD LAB POCT ORDERABLES - DEVICE Fin al Result Performing Organization Address [facility] Phone Number [facility] [place] [address] * GI - RESULT (10/16/2024 2:25 PM CDT) Anatomical Region Laterality Modality Other Provider Scanning Final Result * -Miscellaneous Molecular Send-out Request (10/15/2024 4:51 PM CDT) Result 1 Test Name: Tempus xT Specimen Type: PB Result: See attached scanned report for results. Comment:Credited, duplicate test. Test name Tempus xT [facility] Blood 10/15/2024 4:51 PM CDT 10/16/2024 3:19 PM CDT Franklin Phelps MD PhD LAB GENETIC TESTING [place] l Result Performing Organization Address [facility] de Phone Number [facility] [place] [address] * DPYD full gene sequencing -Miscellaneous Molecular Send-out Request (10/15/2024 4:50 PM CDT) Result 1 Test Name: Dihydropyrimidine Dehydrogenase Gene Full Sequencing ([place]) Specimen Type: PB Result: See attached scanned report for results. Test name Dihydropyrimidine Dehydrogenase Gene Full Sequencing ([place]) [facility] Blood 10/15/2024 4:50 PM CDT 10/16/2024 11:27 AM CDT Narrative [facility] - 10/22/2024 11:49 AM CDT Test Requested:->DPYD full gene sequencing Franklin Phelps MD PhD LAB GENETIC TESTING [place] l Result Performing Organization Address [facility] Co de Phone Number [facility] [place] [address] * eGFR (10/15/2024 4:50 PM CDT) Pathologist [facility] eGFR 83 >=60 mL/min/1. 73 m2 Comment: Interpretive Data [...] interpretive data was last reviewed 2021. Blood 10/15/2024 4:50 PM CDT 10/15/2024 5:30 PM CDT Franklin Phelps MD PhD LAB BLOOD ORDERABLES Fin al Result Performing Organization Address City/[facility]/ZIP Co de Phone Number JOB MCCOLLUM [facility] Department [place] [address] * Differential, auto (10/15/2024 4:50 PM CDT) Pathologist [facility] Neutrophil abs 5.78 1.50 - 6.50 K/cumm Comment:Testing performed by : [facility], [address] [place] [phone] Lymphocyte abs 0.89 0.80 - 3.30 K/cumm [facility] Comment:Testing performed by : [facility], [address] [place] [phone] Monocyte abs 0.58 0.20 - 0.80 K/cumm [facility] Comment:Testing performed by : [facility], [address] [place] [phone] Eosinophil abs 0.07 0.00 - 0.50 K/cumm [facility] Comment:Testing performed by : [facility], [address] [place] [phone] Basophil abs 0.06 0.00 - 0.10 K/cumm [facility] Comment:Testing performed by : [facility], [address] [place] [phone] Neutrophil pct 78.3 % [facility] Comment: Interpretive Data Percent cell count reference ranges are not reported, since discordance with absolute values may lead to misinterpretation of CBC data. Current Interpretive Data was last revised on 2017. Testing performed by: [facility], [address] [place] [phone] Lymphocyte pct 12.1 % [facility] Comment: Interpretive Data Percent cell count reference ranges are not reported, since discordance with absolute values may lead to misinterpretation of CBC data. Current Interpretive Data was last revised on 2017. Testing performed by: [facility], [address] [place] [phone] Monocyte pct 7.9 % [facility] Comment: Interpretive Data Percent cell count reference ranges are not reported, since discordance with absolute values may lead to misinterpretation of CBC data. Current Interpretive Data was last revised on 2017. Testing performed by: [facility], [address] [place] [phone] Eosinophil pct 1.0 % [facility] Comment: Interpretive Data Percent cell count reference ranges are not reported, since discordance with absolute values may lead to misinterpretation of CBC data. Current Interpretive Data was last revised on 2017. Testing performed by: [facility], [address] [place] [phone] Basophil pct 0.7 % [facility] Comment: Interpretive Data Percent cell count reference ranges are not reported, since discordance with absolute values may lead to misinterpretation of CBC data. Current Interpretive Data was last revised on 2017. Testing performed by: [facility], [address] [place] [phone] Blood 10/15/2024 4:50 PM CDT 10/15/2024 4:54 PM CDT Franklin Phelps MD PhD LAB BLOOD ORDERABLES Fin al Result Performing Organization Address City/[facility]/ZIP Co de Phone Number [facility] [place] [address] * (ABNORMAL) Iron profile w/ IBC (10/15/2024 4:50 PM CDT) Iron 21(L) 50 - 150 mcg/dL TIBC 163(L) 250 - 400 mcg/dL [facility] Transferrin saturation 13(L) 20 - 50 % [facility] Blood 10/15/2024 4:50 PM CDT 10/15/2024 5:13 PM CDT Franklin Phelps MD PhD LAB BLOOD ORDERABLES Fin al Result Performing Organization Address City/[facility]/ZIP Co de Phone Number [facility] Department [place] [address] * (ABNORMAL) CBC with auto differential (10/15/2024 4:50 PM CDT) WBC 7.38 3.80 - 9.90 K/cumm Comment:Testing performed by : [facility], [address] [place] [phone] Hgb 9.3(L) 13.0 - 17.5 g/dL [facility] Comment:Testing performed by : [facility], [address] [place], [place] [phone] Hct 27.7(L) 38.9 - 50.3 % [facility] Comment:Testing performed by : [facility], [address] [place], [place] [phone] Plt 526(H) 150 - 400 K/cumm [facility] Comment:Testing performed by : [facility], [address] [place], [place] [phone] MPV 6.9 6.8 - 10.4 fL [facility] Comment:Testing performed by : [facility], [address] [place], [place] [phone] RBC 3.38(L) 4.30 - 5.80 M/cumm C[facility]ER [facility] Comment:Testing performed by : [facility], [address] [place], [place] [phone] MCV 82.1 81.3 - 96.4 fL [facility] Comment:Testing performed by : [facility], [address] [place], [place] [phone] MCH 27.6 27.1 - 33.3 pg [facility] Comment:Testing performed by : [facility], [address] [place] [address] MCHC 33.7 32.3 - 35.7 g/dL [facility] Comment:Testing performed by : [facility], [address] [place] [address] RDW CV 14.2 11.1 - 14.9 % [facility] Comment:Testing performed by : [facility], [address] [place], [place] [phone] NRBC abs 0.00 0.00 - 0.01 K/cumm [facility]ER [facility]J Comment:Testing performed by : [facility], [address] [place], [place] [phone] Blood 10/15/2024 4:50 PM CDT 10/15/2024 4:54 PM CDT us Franklin Phelps MD PhD LAB BLOOD ORDERABLES Fin al Result Performing Organization Address [facility] de Phone Number [facility] [place] [address] * Cancer antigen 19-9 (10/15/2024 4:50 PM CDT) CA 19-9 ag 7.1 <=35.0 units/mL Comment: Interpretive Data The Lexi CA 19-9 assay procedure was used. Results from different manufacturers or methods may not be comparable. Serial testing should be performed using the same method. Blood 10/15/2024 4:50 PM CDT 10/15/2024 5:13 PM CDT Franklin Phelps MD PhD LAB BLOOD ORDERABLES Fin al Result Performing Organization Address [facility] de Phone Number [facility] [place] [address] * aPTT (10/15/2024 4:50 PM CDT) aPTT 36 28 - 38 sec Comment: Interpretive Data Heparin therapeutic range: 66.0 - 100.0 seconds. Range based on correlation with therapeutic heparin activity range of 0.3 - 0.7 Units/mL. Current interpretive data was last revised on 2023. Blood 10/15/2024 4:50 PM CDT 10/15/2024 5:12 PM CDT Franklin Phelps MD PhD LAB BLOOD ORDERABLES Fin al Result Performing Organization Address [facility] de Phone Number JOB [facility] [place] [address] * (ABNORMAL) Protime-INR (10/15/2024 4:50 PM CDT) PT 15.9(H) 9.7 - 13.0 sec INR 1.46(H) 0.90 - 1.20 [facility] Comment: Interpretive data Oral anticoagulant therapeutic ranges: Venous thromboembolism prophylaxis or treatment: 2.0-3.0 CARDIOLOGY Standard range: 2.0-3.0 High-intensity range: 2.5-3.5 Refer to indication-specific guidelines for appropriate target ranges for prosthetic heart valve replacement. Current interpretive data was last revised on 2019. Blood 10/15/2024 4:50 PM CDT 10/15/2024 5:12 PM CDT Franklin Phelps MD PhD LAB BLOOD ORDERABLES Fin al Result Performing Organization Address [facility] Co de Phone Number [facility] [place] [address] * (ABNORMAL) Ferritin (10/15/2024 4:50 PM CDT) Ferritin 608(H) 30 - 400 ng/mL Blood 10/15/2024 4:50 PM CDT 10/15/2024 5:13 PM CDT Result [facility] Franklin Phelps MD PhD LAB BLOOD ORDERABLES Fin al Result Performing Organization Address [facility] Phone Number [facility] [place] [address] * CEA (10/15/2024 4:50 PM CDT) CEA 2.3 <=5.0 ng/mL Comment: Interpretive Data: Reference Range: Non-Smokers: 0.0 5.0 ng/mL Smokers: 0.0 6.5 ng/mL The Lexi CEA assay procedure was used. Results from different manufacturers or methods may not be comparable. Serial testing should be performed using the same method. Current interpretive data was last revised 2021. Blood 10/15/2024 4:50 PM CDT 10/15/2024 5:13 PM CDT us Franklin Phelps MD PhD LAB BLOOD ORDERABLES Fin al Result [facility] [place] [address] * (ABNORMAL) Comprehensive metabolic panel (10/15/2024 4:50 PM CDT) Sodium 142 135 - 145 mmol/L Potassium, pl 4.3 3.3 - 4.9 mmol/L [facility] Chloride 99 97 - 110 mmol/L [facility] CO2 31 22 - 32 mmol/L [facility] Anion gap 12 2 - 15 mmol/L [facility] BUN 15 6 - 25 mg/dL [facility] Creatinine 1.04 0.80 - 1.30 mg/dL [facility] Glucose 178 70 - 199 mg/dL [facility] Comment: Interpretive Data Fasting glucose >/= 126 mg/dl is diagnostic for diabetes. Fasting is defined as no caloric intake for at least 8 hours. Fasting glucose between 100 mg/dl to 125 mg/dl is diagnostic of prediabetes. In a patient with classic symptoms of hyperglycemia or hyperglycemic crisis, a random glucose >/= 200 mg/dl is diagnostic for diabetes. In the absence of unequivocal hyperglycemia, results should be confirmed by repeat testing. The classification and Diagnosis of Diabetes Diabetes Care 202; 46: S19-S40. Current interpretive data was last revised 2022. Calcium 9.5 8.5 - 10.3 mg/dL [facility] Bilirubin, total 0.5 0.1 - 1.2 mg/dL [facility] Protein, pl 7.4 6.5 - 8.5 g/dL [facility] Albumin 2.9(L) 3.5 - 5.0 g/dL [facility] Alk phos 305(H) 40 - 130 Units/L [facility] ALT 34 7 - 55 Units/L [facility] AST 40 10 - 50 Units/L [facility] Blood 10/15/2024 4:50 PM CDT 10/15/2024 5:13 PM CDT us Franklin Phelps MD PhD LAB BLOOD ORDERABLES Fin al Result [facility] Department [place] [address] * [facility] xT DNA and RNA (10/15/2024 4:06 PM CDT) Reason for Study To identify somatic and germline mutations relevant to patient's cancer. 10/30/2024 3:24 PM CDT [facility] Genetic Diseases Assessed Cancer 10/30/2024 3:24 PM CDT [facility] Description of Ranges of DNA Sequences Examined 648 gene panel 10/30/2024 3:24 PM CDT [facility] Overall Interpretation positive 10/30/2024 3:24 PM CDT [facility] MSI Stable 10/30/2024 3:24 PM CDT [facility] TMB 0.5 m/MB 10/30/2024 3:24 PM CDT [facility] Portal [id number] 10/30/2024 3:24 PM CDT [facility] Comment:[facility] link MMR Overall Result normal 10/30/2024 3:24 PM CDT [facility] MLH1 Presence or Absence present 10/30/2024 3:24 PM CDT [facility] PMS2 Presence or Absence present (weak) 10/30/2024 3:24 PM CDT [facility] MSH2 Presence or Absence present 10/30/2024 3:24 PM CDT [facility] MSH6 Presence or Absence present 10/30/2024 3:24 PM CDT [facility] PD-L1 Interpretation by 22C3 negative 10/30/2024 3:24 PM CDT [facility] PD-L1 (22C3) Combined Positive Score <1 10/30/2024 3:24 PM CDT [facility] PD-L1 (22C3) Tumor Proportion Score <1 % 10/30/2024 3:24 PM CDT [facility] Low Coverage Regions EPHB2 10/30/2024 3:24 PM CDT [facility] Therapy Count 1 10/30/2024 3:24 PM CDT [facility] Tempus: Potential Therapy 1 Gene: 795^PEDRO^HGNC Variant: p.R2993* Match Type: snvIndel Match Type Description: PEDRO p.R2993* Agent: Olaparib Drug Class: PARP Inhibitor Tissue: Prostate Cancer Association: Response Evidence Status: Consensus Evidence ID: NCCN [id number] Variant: [id number] Label: FDA Off Label FDA Approved?: Yes On label?: No 10/30/2024 3:24 PM CDT [facility] Trial Count 3 10/30/2024 3:24 PM CDT [facility]us: Clinical Trial Match 1 Clinical Trial NCT ID: [id number] Clinical Trial Title: A Study of APG-115 in as a Monotherapy or Combination With Pembrolizumab in Patients With Metastatic Melanomas or Advanced Solid Tumors Clinical Trial URL: [email or web address].gov/[email or web address] Clinical Phase: Phase 1/Phase 2 Clinical Trial Matches: PEDRO p.R2993* mutation Clinical Trial Distance and Location: [address] [place], [place] 10/30/2024 3:24 PM CDT [facility] Tempus: Clinical Trial Match 2 Clinical Trial NCT ID: [id number] Clinical Trial Title: Tumor-agnostic Precision Immuno-oncology and Somatic Targeting Rational for You (TAPISTRY) Platform Study Clinical Trial URL: [email or web address].gov/[email or web address] Clinical Phase: Phase 2 Clinical Trial Matches: PEDRO p.R2993* mutation Clinical Trial Distance and Location: [address] [place], [place] 10/30/2024 3:24 PM CDT [facility] Tempus: Clinical Trial Match 3 Clinical Trial NCT ID: [id number] Clinical Trial Title: A Study of PARG Inhibitor XNK084 in Participants With Advanced Solid Tumors Clinical Trial URL: [email or web address].gov/[email or web address] [email or web address] Clinical Phase: Phase 1 Clinical Trial Matches: PEDRO p.R2993* mutation Clinical Trial Distance and Location: [address] [place], [place] 10/30/2024 3:24 PM CDT [facility] xR Result 1 NEGATIVE Negative - This report is being issued to report the results of gene rearrangement and altered splicing analysis from RNA sequencing. No gene rearrangements nor reportable altered splicing events were identified from RNA sequencing. 10/30/2024 3:24 PM CDT [facility] Germline Variant Note No potential germline variants were found in the limited set of genes on which we report. 10/30/2024 3:24 PM CDT [facility] HLA-A Typing A*01:01,A*03:01 025 3:24 PM CDT [facility] HLA-B Typing B*07:02,B*35:03 3:24 PM CDT [facility] HLA-C Typing C*04:01,C*07:02 025 3:24 PM CDT [facility] HLA-A Ambiguous Alleles Yes 10/30/2024 3:24 PM CDT [facility] HLA-B Ambiguous Alleles Yes 10/30/2024 3:24 PM CDT [facility] HLA-C Ambiguous Alleles Yes 10/30/2024 3:24 PM CDT [facility] HLA-A Sample Type Normal Only 2024 3:24 PM CDT [facility] HLA-B Sample Type Normal Only 2024 3:24 PM CDT [facility] HLA-C Sample Type Normal Only 2024 3:24 PM CDT [facility] Tissue specimen (specimen) 10/15/2024 4:06 PM CDT 10/17/2024 4:34 PM CDT Narrative This result has genomic variants that were not included in this document. us Franklin Phelps MD PhD LAB GENETIC TESTING Edit ed Result - Final [facility] [address], [address] [place] [address], [facility] [phone] [facility] [address], [address] [place] [address] * Surgical pathology (10/11/2024 10:47 AM CDT) Tissue (Miscellaneous) 10/11/2024 10:47 AM CDT 10/11/2024 10:47 AM CDT Narrative [facility] - 10/12/2024 3:36 PM CDT EPIC results best viewed via link to PDF [facility] Pathology Consult Service [address], [place] [address] Note to Patients: This report may contain a detailed description of human tissue sent by a health care provider to the laboratory for pathologic evaluation. The content of this report is essential for diagnosis and may provide important critical findings. This information may be unfamiliar to patients to review without a medical professional present. It is advised that the patient review this report in the presence of a health care provider who can answer questions and explain the details. SURGICAL PATHOLOGY REPORT * Consult Report * [facility] is providing an additional review of previously collected tissue. FINAL WITH ADDENDUM Patient Name: OC DURON Address: [address] [place], [place] [id number] Gender: M : 1965 (Age: 59) Hospital #: [id number] Patient Type: MATTY Location: UNKNOWN Taken: 10/11/2024 Received: 10/11/2024 Accessioned: 10/11/2024 Reported: 10/12/2024 Physician(s): MD Franklin George M.D. [facility] Department of Pathology [address] [place] [id number] P: [phone] F: [phone] Diagnosis: Consult material received from [place], [place] (OSC: [id number]; 10/03/2024). Liver, left lobe mass, biopsy - Metastatic adenocarcinoma, see comment celt/10/12/2024 12:41 By this signature, I attest that the above diagnosis is based upon my personal examination of the slides(and/or other material indicated in the diagnosis). Randa Drummond MD Report Electronically Reviewed and Signed Out By Randa Drummond MD 10/12/2024 15:36:23 Microscopic Description and Comment: Provided immunostains demonstrate that the tumor is positive for CK7. They are negative for CK20, CA19-9, GATA3, TTF-1 and Napsin-A. The tumor is exhausted on the deeper levels used for immunostains. The immunophenotype and morphology raise a differential of pancreaticobiliary, upper GI/esophageal, and small bowel. Clinical correlation with imaging findings is recommended. Irma Avalos D.O. History: The patient is a 59-year-old man with history of metastatic malignant neoplasm, unspecified site. Materials Received: Received for review are thirteen slides labeled [id number], accompanied by a corresponding pathology report. The material originates from [place], [place]. Selected slide(s) may be digitally scanned for our files, and all materials are returned to the referring institution, along with a copy of our final report. Addenda/Procedures Addendum Ordered: 10/18/2024 Status: Signed Out Addendum Complete: 10/18/2024y: Ally Torres MD, PHDAddendum Signed Out: 10/23/2024 Addendum Comment Additionally received 8 unstained slides labeled [id number] for additional materials on [id number]. The material originates from [place], [place]. By this signature, I attest that the above diagnosis is based upon my personal examination of the slides(and/or other material indicated in the diagnosis). Ally Torres MD, PHDReport Electronically Reviewed and Signed Out By Ally Torres MD, PHD 10/23/2024 19:01:51Tuan Garrett M.D. Addendum Ordered: 10/25/2024 Status: Signed Out Addendum Complete: 10/25/2024y: Ally Torres MD, PHDAddendum Signed Out: 10/25/2024 Addendum Comment At the request of Dr. Phelps, DNA mismatch repair immunohistochemistry has been performed on the carcinoma and demonstrates the following results: MLH1: retained nuclear expression PMS2: retained nuclear expression MSH2: retained nuclear expression MSH6: retained nuclear expression This staining pattern suggests the carcinoma is arisen through microsatellite stable (SHOAIB) pathway. By this signature, I attest that the above diagnosis is based upon my personal examination of the slides(and/or other material indicated in the diagnosis). Ally Torers MD, PHDReport Electronically Reviewed and Signed Out By Ally Torres MD, PHD 10/25/2024 11:08:13 Any testing required for diagnostic purposes was performed in the Department of Pathology and Immunology at [facility], [address] [place] [address] CLIA # [id number] The performance characteristics of the testing cited in this report (if any) were determined by the [facility] Department of Pathology and Immunology [facility], as part of an ongoing senior data quality analyst program and in compliance with federally mandated regulations drawn from the Clinical Laboratory Improvement Act of 1988 (CLIA '88). Some of these tests rely on the use of analyte specific reagents (ASR) and are subject to specific labeling requirements by the US Food and Drug Administration. Such diagnostic tests may only be performed in a facility that is certified by the Department of Health and Human Services as a high complexity laboratory under CLIA '88. The FDA has determined that such clearance or approval is not necessary. ASRs should not be regarded as investigational or for research. ASRs were developed and the performance characteristics determined by the [facility], [facility] Department of Pathology and Immunology. It has not been cleared or approved by the U.S. Food and Drug Administration. Any test designated as LDT was developed and its performance characteristics determined by [facility]. It has not been cleared or approved by the FDA. This test is used for clinical purposes and should not be regarded as investigational or for research. Report images and/or scanned reports, if included, only viewable in PDF version of report. Heidi Montes De Oca MD LAB PATHOLOGY ORDERABLES Final R esult [facility] [address] [address] * SCAN - PATHOLOGY (10/08/2024 3:23 PM CDT) us Provider Scanning Final Result * CT Body Outside Consult (10/04/2024 5:40 PM CDT) Anatomical Region Laterality Modality Body N/A Computed Tomogra phy 10/05/2024 3:22 PM CDT Impressions 10/05/2024 3:22 PM CDT 1. Large mass inferior to/abutting the uncinate process of the pancreas that involves the traversing duodenum with extensive hepatic metastatic disease. It is not certain whether this is a primary duodenal or pancreatic mass. No local vascular involvement. 2. Left adrenal nodule which could represent additional metastatic disease. The findings, conclusions and recommendations within this report do not replace the initial findings, conclusions and recommendations made at the facility where the study was performed based upon the imaging and clinical condition at that time. Comparison with the prior report and clinical history is necessary. The provided images may or may not represent the grand traverse source data set and thus may contain changes that may lower the accuracy of this second-opinion interpretation. Electronically signed by: Abel De La Paz M.D. Narrative 10/05/2024 3:22 PM CDT EXAMINATION: RADIOLOGY CONSULTATION ON OUTSIDE IMAGING STUDY STUDY INITIALLY PERFORMED: 09/30/2024 at [facility]. TYPE OF STUDY: Multiple CT images of the abdomen with intravenous contrast are provided at the time of this interpretation. CONTRAST ROUTE: Intravenous The protocol was adequate to address the clinical question. The outside final report was not available at the time of this second opinion interpretation. TYPE OF CONSULTATION: Consult on outside imaging study with images submitted through Outside Image Sharing Service DATE OF CONSULTATION: 10/05/2024 3:16 PM HISTORY: Pancreatic mass, liver lesions COMPARISON: None available. FINDINGS: There is a large mass seen just caudal to the uncinate process of the pancreas and cranial to the traversing third/fourth portion of the duodenum. This mass likely involves the duodenum. The mass measures 4.5 x 4.2 cm. There is no pancreatic ductal or bowel obstruction. There are some small adjacent subcentimeter short axis lymph nodes. Portal and superior mesenteric veins are normal. Celiac axis and superior mesenteric artery are not involved. Hepatic artery is not involved. There are innumerable hepatic lesions consistent with metastatic disease. The largest measures 5.8 x 5.3 cm at scanner position -45.3. There is no biliary ductal dilatation. Spleen is normal. Right adrenal is normal. There is nodularity of the left adrenal gland measuring up to 1.8 cm. No renal lesions or hydronephrosis. No visible omental lesions. Lung bases are clear. Bone windows demonstrate no lytic or blastic lesions. Procedure Note Abel De La Paz MD - 10/05/2024 EXAMINATION: RADIOLOGY CONSULTATION ON OUTSIDE IMAGING STUDY STUDY INITIALLY PERFORMED: 09/30/2024 at [facility]. TYPE OF STUDY: Multiple CT images of the abdomen with intravenous contrast are provided at the time of this interpretation. CONTRAST ROUTE: Intravenous The protocol was adequate to address the clinical question. The outside final report was not available at the time of this second opinion interpretation. TYPE OF CONSULTATION: Consult on outside imaging study with images submitted through Outside Image Sharing Service DATE OF CONSULTATION: 10/05/2024 3:16 PM HISTORY: Pancreatic mass, liver lesions COMPARISON: None available. FINDINGS: There is a large mass seen just caudal to the uncinate process of the pancreas and cranial to the traversing third/fourth portion of the duodenum. This mass likely involves the duodenum. The mass measures 4.5 x 4.2 cm. There is no pancreatic ductal or bowel obstruction. There are some small adjacent subcentimeter short axis lymph nodes. Portal and superior mesenteric veins are normal. Celiac axis and superior mesenteric artery are not involved. Hepatic artery is not involved. There are innumerable hepatic lesions consistent with metastatic disease. The largest measures 5.8 x 5.3 cm at scanner position -45.3. There is no biliary ductal dilatation. Spleen is normal. Right adrenal is normal. There is nodularity of the left adrenal gland measuring up to 1.8 cm. No renal lesions or hydronephrosis. No visible omental lesions. Lung bases are clear. Bone windows demonstrate no lytic or blastic lesions. IMPRESSION: 1. Large mass inferior to/abutting the uncinate process of the pancreas that involves the traversing duodenum with extensive hepatic metastatic disease. It is not certain whether this is a primary duodenal or pancreatic mass. No local vascular involvement. 2. Left adrenal nodule which could represent additional metastatic disease. The findings, conclusions and recommendations within this report do not replace the initial findings, conclusions and recommendations made at the facility where the study was performed based upon the imaging and clinical condition at that time. Comparison with the prior report and clinical history is necessary. The provided images may or may not represent the grand traverse source data set and thus may contain changes that may lower the accuracy of this second-opinion interpretation. Electronically signed by: Abel De La Paz M.D. Heidi Montes De Oca MD IMG CT PROCEDURES Final Result * SCAN - LABS (09/21/2024) Provider Scanning Final Result * Albumin Creatinine Ratio, Urine (04/06/2024 9:50 AM CDT) Albumin Ur 27.5 mg/L Comment: Interpretive Data No reference range established. Current interpretive data was last revised 2018. Creatinine Ur 240.8 mg/dL [facility] Comment: Interpretive Data No reference range established. Current interpretive data was last revised 2018. Albumin Creatinine Ratio, Ur 11 1 - 29 mg/g [facility] Urine 04/06/2024 9:50 AM CDT 04/06/2024 2:41 PM CDT Haily Siddiqi GREENHOUSE STAFF LAB URINE ORDERABLES Asuncion l Result [facility] [address] [address] Department [place] [address] * Lipid panel (04/06/2024 9:50 AM CDT) [...] NCEP Expert Panel. Circulation 2004;110:227 3. Arnold Freeman al. WALI Cardiol. 2020 October 25;5(5):540-548. doi: 10.1001/jamacardio.2020.0013 Current Interpretive Data was last revised on 2024. Non-HDL Cholesterol 107 mg/dL [facility] Comment: Interpretive Data Ages < [...] 9:50 AM CDT 04/06/2024 2:41 PM CDT Result [facility] Haily Siddiqi NP LAB BLOOD ORDERABLES Asuncion l Result [id number] Department [place] [address] * (ABNORMAL) POCT hemoglobin A1c (04/06/2024 9:05 AM CDT) Hemoglobin A1C, POC 8.7 4.0 - 5.6 % Blood 04/06/2024 9:05 AM CDT Result [facility] Haily Siddiqi NP POINT OF CARE TEST ORDERA BLES Final Result * (ABNORMAL) DIABETES EYE EXAM (01/17/2024 8:11 AM CDT) Result [facility] Historical Provider HEALTH MAINTENANCE Final Result * Diabetic Foot Exam (12/12/2019) Result [facility] Historical Provider HEALTH MAINTENANCE Final Result * PSA screen (10/11/2017 11:35 AM CDT) SCRIBED PSA, Serum 1.5 0.0 - 4.0 [facility] Blood specimen (specimen) us Historical Provider LAB BLOOD ORDERABLES Edit ed Result - Final [facility] from Last 3 Months or Most Recently Relevant to [place] [address] [facility] [employer] [employer] [facility] H[facility]/PPO Address: [address] [place] [address] [place] [address] [facility] [employer] [employer] [facility]/PPO Address: [address] [place] [address] [place] [address] [facility] [employer] [employer] [facility]/PPO Address: [address] [place] [address] [place] [address] [facility] [employer] [employer]/PPO Address: [address] [place] [address] Advance Directives For more information, please contact: [phone] * Full Code (Latest Code Status on File) Date Activated Date Inactivated Comments 10/18/2024 7:56 AM 10/24/2024 1:23 PM * Full Code Date Activated Date Inactivated Comments 05/13/2021 5:01 PM 05/14/2021 2:11 PM Care Teams Director [place] Relationship Specialty Start Date End Date Vu Condon DO [address] [id number] PCP - General Internal Medicine 10/04/24 Franklin Phelps MD PhD [address] [place] [address] Medical Oncologist/Vice President Of Recruiting Medical Oncology 10/25/24
--- OUTSIDE RECORDS SUMMARY | 2024-11-30 17:05 | XMS_ITS | Referral Summary ---
Author Organization [facility] Address [address] [place] [address] Care Team Providers Care Materials Branch Chief Name Role Phone Vu Condon Primary Care Provider [phone] Franklin Phelps MD PhD Unavailable [phone] Encounters Date Type Department Care Team Description 11/30/2024 Telephone [facility] [address] [place] [phone] Kaitlin Robles RN 11/26/2024 2:00 PM CDT Infusion [facility] - Infusion [address] [place] [address] Malignant neoplasm metastatic to liver (HCC) (Primary Dx); Malignant neoplasm of head of pancreas (HCC) 11/26/2024 11:45 AM CDT Clinical Support [facility] - Lab Collection [address] [place] [address] 5 [place] [address] Malignant neoplasm of head of pancreas (HCC); Malignant neoplasm metastatic to liver (HCC) 11/26/2024 12:45 PM CDT Office Visit [facility] [address] [place] [address] 5 [place] [address] Barbara Weinberg PA Malignant neoplasm metastatic to liver (HCC) (Primary Dx); Malignant neoplasm of head of pancreas (HCC) 11/14/2024 Telephone [facility] [address] [place] [address] Floor 8 [place] [address] Kaitlin Robles RN 11/14/2024 Documentation [facility] [address] [facility] [place] [address] Vianney Rees CMA 11/12/2024 12:30 PM CDT Infusion [facility] - [facility]fusion [address] [facility] Floor 6 [place] [address] Malignant neoplasm metastatic to liver (HCC) (Primary Dx); Malignant neoplasm of head of pancreas (HCC) 11/12/2024 10:30 AM CDT Clinical Support [facility] - Lab Collection [facility] Floor 5 [place] [address] Malignant neoplasm of head of pancreas (HCC); Malignant neoplasm metastatic to liver (HCC) 11/12/2024 11:30 AM CDT Office Visit [facility] [address] [place] [address] Floor 5 [place] [address] Franklin Phelps MD PhD Malignant neoplasm metastatic to liver (HCC) (Primary Dx); Malignant neoplasm of head of pancreas (HCC); Type 2 diabetes mellitus with hyperglycemia, with long-term current use of insulin (HCC) 11/05/2024 Orders Only [facility] [address] [place] [address] Floor 5 [place] [address] Franklin Phelps MD PhD 11/05/2024 2:00 PM CDT Clinical Support [facility] - Lab Collection [address] [place] [address] Floor 6 [place] [address] Malignant neoplasm of head of pancreas (HCC); Malignant neoplasm metastatic to liver (HCC) 11/05/2024 3:00 PM CDT Infusion [facility] - [facility]fusion [address] [facility] Floor 6 [place] [address] Malignant neoplasm metastatic to liver (HCC) (Primary Dx); Malignant neoplasm of head of pancreas (HCC) 11/03/2024 Orders Only [facility] [address] [place] [address] Floor 8 [place] [address] Franklin Phelps MD PhD 10/30/2024 Orders Only [facility] [address] [place] [address] Floor 5 [place] [address] Franklin Phelps MD PhD 10/30/2024 Telephone [facility] [address] [place] [address] Floor 5 [place] [address] Kaitlin Robles RN 10/29/2024 8:30 AM CDT Clinical Support [facility] - Lab Collection [facility] Floor 5 [place] [address] Duodenal adenocarcinoma (HCC); Malignant neoplasm metastatic to liver (HCC) 10/29/2024 10:00 AM CDT Infusion [facility] - Infusion [address] [facility] Floor 5 [place] [address] Malignant neoplasm of head of pancreas (HCC) (Primary Dx); Duodenal adenocarcinoma (HCC); Malignant neoplasm metastatic to liver (HCC) 10/29/2024 8:00 AM CDT Clinical Support [facility] Lab [address] [place] [address] 5 [place] [address] Duodenal adenocarcinoma (HCC); Malignant neoplasm metastatic to liver (HCC); Malignant neoplasm of head of pancreas (HCC) 10/29/2024 9:00 AM CDT Office Visit [facility] [address] [place] [address] 5 [place] [address] Franklin Phelps MD PhD Malignant neoplasm of head of pancreas (HCC) (Primary Dx); Duodenal adenocarcinoma (HCC); Malignant neoplasm metastatic to liver (HCC) 10/24/2024 Orders Only [facility] Scanning, Provider 10/23/2024 12:42 PM CDT - 10/23/2024 11:59 PM CDT Hospital Encounter [facility] Radiology [address] [address] Duodenal adenocarcinoma (HCC); Metastatic malignant neoplasm, unspecified site (HCC) Discharge Disposition: Discharge to home or self care 10/23/2024 3:11 PM CDT - 10/23/2024 11:59 PM CDT Hospital Encounter [facility] - [place] [address] [facility] Floor 8 [place] [address] Duodenal adenocarcinoma (HCC); Metastatic malignant neoplasm, unspecified site (HCC) Discharge Disposition: Discharge to home or self care 10/23/2024 3:11 PM CDT - 10/23/2024 11:59 PM CDT Hospital Encounter [facility] [place] [address] [facility] Floor 8 [place] [address] Duodenal adenocarcinoma (HCC); Metastatic malignant neoplasm, unspecified site (HCC) Discharge Disposition: Discharge to home or self care 10/18/2024 Telephone [facility] Radiology [address] [facility] [place] [address] Erin Sanderson RN 10/18/2024 8:30 AM CDT - 10/18/2024 9:00 AM CDT Surgery [facility] Digestive Disease [address] [place] [address] Arabella Painting MD [facility] 10/18/2024 8:14 AM CDT Anesthesia Event [address] [place] [address] Marcial Michel MD 10/18/2024 7:02 AM CDT - 10/18/2024 11:33 AM CDT Hospital Encounter [address] [place] [address] Heidi Montes De Oca MD Early, Dayna S., MD Discharge Disposition: Discharge to home or self care 10/17/2024 Documentation [facility] [address] [place] [address] Medicine [facility] [place] [address] [place] [address] Neetu Tucker RN 10/17/2024 Telephone [facility] [address] [place] [address] Advanced Medicine [facility] [place] [address] [place] [address] Shari Roche 10/16/2024 Orders Only [facility] Scanning, Provider 10/16/2024 Telephone [facility] [address] [place] [address] Advanced Medicine [facility] [place] [address] [place] [address] Lakesha Adam 10/15/2024 Orders Only [facility] [address] [facility] Floor 5 [place] [address] Franklin Phelps MD PhD Malignant neoplasm metastatic to liver (HCC) (Primary Dx); Duodenal adenocarcinoma (HCC) 10/15/2024 4:30 PM CDT Lab [facility] - Lab Collection [address] [facility] Floor 5 [place] [address] Duodenal adenocarcinoma (HCC); Metastatic malignant neoplasm, unspecified site (HCC) 10/15/2024 3:30 PM CDT Office Visit [facility] [address] [facility] Floor 5 [place] [address] Franklin Phelps MD PhD Duodenal adenocarcinoma (HCC) (Primary Dx); Metastatic malignant neoplasm, unspecified site (HCC); Malignant neoplasm metastatic to liver (HCC) 10/11/2024 Orders Only [facility] [address] [address] Heidi Montes De Oca MD Metastatic malignant neoplasm, unspecified site (HCC) 10/09/2024 Telephone [facility] [address] [place] [address] Advanced Medicine [facility] [place] [address] [place] [address] Shari Roche GI Assessment pre procedure call 10/09/2024 Orders Only [facility] [address] [place] [address] 12th [place] [address] [place] [address] Neetu Tucker RN Metastatic malignant neoplasm, unspecified site (HCC) (Primary Dx) 10/09/2024 Documentation [facility] [address] [place] [address] 12th [place] [address] [place] [address] Heidi Montes De Oca MD 10/08/2024 Orders Only [facility] Scanning, Provider 10/07/2024 Results Follow-Up [facility] [address] [place] [address] 12th [place] [address] [place] [address] [address] De Oca [address] Body Outside Consult 10/04/2024 5:40 PM CDT - 10/04/2024 11:59 PM CDT Hospital Encounter [facility] Rad[facility] [address] [place] [address] Diagnosis unknown Discharge Disposition: Discharge to home or self care 10/04/2024 Telephone [facility] [address] [facility] 12th [place] [address] [place] [address] Neetu Tucker RN 09/30/2024 Telephone [facility] [address] [facility] 12th [place] [address] [place] [address] Heidi Montes De Oca MD 09/21/2024 Orders Only [facility] Scanning, Provider from Last 3 Months Allergies Active Allergy Reactions Criticality Noted Date [...] long-term current use of insulin (HCC) Inject 1 each under the skin 4 [...] long-term current use of insulin ([facility]) TAKE 1 TABLET DAILY BEFORE BREAKFAST 90 tablet 3 Active atorvastatin (LIPITOR) 20 mg tablet TAKE [...] Use first for nausea. 120 tablet 3 Active lidocaine-priloca ine (EMLA) creamIndications: Administration of Local Anesthesia Place cream over port site 30-45 minutes prior to each use and cover with plastic wrap or a [id number]. 30 g 6 025 Active metFORMIN XR (GLUCOPHAGE XR) 500 mg 24 hr tabletIndications :Type 2 diabetes mellitus with hyperglycemia, with long-term current use of insulin ([facility]) TAKE 2 TABLETS TWICE A DAY 360 tablet 3 025 Active SEMGLEE-yfgn 100 unit/mL (3 mL) pen for injectionIndicati ons:Type 2 diabetes mellitus with hyperglycemia, with long-term current use of insulin ([facility]) INJECT 80 UNITS UNDER THE SKIN DAILY, 75 mL 3 025 Active FreeStyle Treasure 2 Plus Sensor deviceIndications :Type 2 diabetes mellitus with hyperglycemia, with long-term current use of insulin ([facility]) Change sensor every 15 days 6 each 1 025 Active insulin glargine (LANTUS) 100 unit/mL (3 mL) pen for injectionIndicati ons:Type 2 diabetes mellitus with hyperglycemia, with long-term current use of insulin ([facility]) Inject 80 Units under the skin nightly [...] long-term current use of insulin ([facility]) CHANGE SENSOR EVERY 14 DAYS 6 kit 3 025 2024 Disconti nued(Pat ient Reported ) Active Problems Problem Noted Date [...] Phentermine Assessment & Plan (05/06/2023 9:22 AM MACHINE CARTON MARKER): Start phentermine Diet and exercise Assessment & Plan (09/16/2022 11:32 AM CDT): Chronic problem. Discussed healthy diet and importance of regular physical activity (20- 30min/day, 150min/wk). SRI on CPAP 05/07/2021 Primary osteoarthritis of left shoulder 04/14/20 21 Overview (04/14/2021): Added automatically from request for surgery [id number] Diabetic polyneuropathy asso ciated with type 2 [...] Atovastatin 20mg. Last lipid panel: 01/13/23 LDL=93, LY=037. No changes at this time. Will update lipid panel today. Verified that he uses [employer]. Aware to check results/results letter in [employer]. Will contact by phone if needed. Assessment & Plan (01/13/2023 10:12 AM CDT): Chronic problem, controlled on current Atovastatin 20mg. Last lipid panel: 01/13/22 LDL=80, TG=95. No changes at this time. Will update lipid panel today. Verified that he uses [employer]. Aware to check results/results letter in [employer]. Will contact by phone if needed. Assessment & Plan (09/16/2022 11:34 AM CDT): Chronic problem, controlled on current Atovastatin 20mg. Last lipid panel: 01/13/22 LDL=80, TG=95. No changes at this time. Assessment & Plan (05/13/2022 10:18 AM MACHINE CARTON MARKER): Chronic problem. On statin therapy, no changes. Assessment & Plan (01/13/2022 9:39 AM CDT): Chronic, well controlled Low fat Low cholesterol diet Exercise Continue statin therapy Check lipid profile Assessment & Plan (08/17/2021 4:39 PM MACHINE CARTON MARKER): Chronic, well controlled Continue current meds Assessment & Plan (12/21/2019 10:56 AM CDT): At goal on current medications. Continue statin therapy. Assessment & Plan (09/13/2019 2:22 PM CDT): At goal on current medications. Continue statin therapy. Assessment & Plan (05/10/2019 4:20 PM MACHINE CARTON MARKER): Goal of treatment , LDL cholesterol less [...] panel Assessment & Plan (06/06/2018 2:28 PM MACHINE CARTON MARKER): Goal of treatment , LDL cholesterol less [...] update labs today. Verified that he uses [employer]. Aware to check results/results letter in [employer]. Will contact by phone if needed. Assessment & Plan (01/13/2023 10:08 AM CDT): Chronic problem, controlled on current valsartan-hctz 160-25mg daily. No changes at this time. Will update labs today. Verified that he uses [employer]. Aware to check results/results letter in [employer]. Will contact by phone if needed. Assessment & Plan (09/16/2022 11:32 AM CDT): Chronic problem, controlled on current valsartan-hctz 160-25mg daily. No changes at this time. Assessment & Plan (05/13/2022 10:18 AM MACHINE CARTON MARKER): Controlled on current medications, no changes. Assessment & Plan (01/13/2022 9:40 AM CDT): Chronic, well controlled Continue current meds Check MA Assessment & Plan (12/21/2019 10:55 AM CDT): Controlled on current medications. Continue plan. Assessment & Plan (09/13/2019 2:22 PM CDT): Controlled on current medications. Continue plan. Assessment & Plan (05/10/2019 4:19 PM MACHINE CARTON MARKER): Goal blood pressure is less than 140/85 Low salt diet recommended Daily aerobic exercise Continue current meds, including NICHOLE-I or ARB Check microalbumin Assessment & Plan (02/06/2019 3:15 PM CDT): Controlled on current medications. Assessment & Plan (10/21/2018 9:02 PM CDT): At goal on current medications. Assessment & Plan (06/06/2018 2:28 PM MACHINE CARTON MARKER): Goal blood pressure is less than 140/85 Low salt diet recommended Daily aerobic exercise Continue current meds, including NICHOLE-I or ARB Assessment & Plan (12/22/2017 10:39 AM CDT): Controlled on current medications. Assessment & Plan (09/21/2017 2:12 PM CDT): Controlled on current medications. Assessment & Plan (06/21/2017 11:48 AM MACHINE CARTON MARKER): Goal blood pressure is less than 140/85 Low salt diet recommended Daily aerobic exercise Continue current meds, including NICHOLE-I or ARB Nontoxic uninodular goiter 11/10/2013 Overview (09/29/2016): NONTOX UNINODULAR GOITER Assessment & Plan (09/02/2020 4:22 PM MACHINE CARTON MARKER): Thyroid ultrasound performed today Right lower thyroid [...] update labs today. Verified that he uses [employer]. Aware to check results/results letter in [employer]. Will contact by phone if needed. UTD [...] and simple sugars. Check blood sugars: Freestyle treasuer 2. Check the feet daily for skin breakdown and infection. Assessment & Plan (10/20/2023 10:25 AM CDT): Chronic, not at goal Diet and exercise were discussed Continue Ozempic, Metformin , Glimeperide, Semglee and Humalog Assessment & Plan (05/06/2023 9:22 AM MACHINE CARTON MARKER): Hba1c was Lab Results Component Value Date [...] update labs today. Verified that he uses [employer]. Aware to check results/results letter in [employer]. Will contact by phone if needed. DM [...] sugars. Assessment & Plan (05/13/2022 10:20 AM MACHINE CARTON MARKER): Chronic problem, stable per Treasure download. We [...] hypoglycemia Assessment & Plan (08/17/2021 4:38 PM MACHINE CARTON MARKER): Hba1c was Lab Results Component Value Date [...] Metformin Assessment & Plan (09/02/2020 4:21 PM MACHINE CARTON MARKER): Hba1c was Lab Results Component Value Date [...] exam. Assessment & Plan (05/10/2019 4:19 PM MACHINE CARTON MARKER): Hba1c was Lab Results Component Value Date [...] exercise. Assessment & Plan (06/06/2018 2:39 PM MACHINE CARTON MARKER): Hba1c was Lab Results Component Value Date [...] accountability. Assessment & Plan (06/21/2017 2:06 PM MACHINE CARTON MARKER): Your Hba1c today was: 9.7 meaning a 3 month average sugar of : 237 Your goal hba1c is under 7.0 to prevent buttermaker diabetes complications ( eye , kidney and [...] 01/13/2022 09/16/2022 Body mass index 40.0-44.9, adult ([facility]) 01/13/2022 09/16/2022 Hyperlipidemia 09/21/2017 09/16/2022 Assessment & Plan (12/22/2017 10:39 AM CDT): LDL at goal on current dose of statin Assessment & Plan (09/21/2017 2:11 PM CDT): Continue statin therapy BMI 40.0-44.9, adult 06/21/2017 023 Assessment & Plan (09/02/2020 4:22 PM MACHINE CARTON MARKER): Patient refusing the consideration for bariatric surgery Phentermine was started because elevated blood pressure Will try Wellbutrin Assessment & Plan (09/13/2019 2:22 PM CDT): Importance of following diet and exercising discussed. Assessment & Plan (02/06/2019 3:14 PM CDT): Recommend he try keto diet again Assessment & Plan (12/22/2017 10:39 AM CDT): Ketogenic diet reviewed Morbid obesity ([facility]) 06/21/2017 Assessment & Plan (04/06/2021 1:02 PM CDT): Worsening Low calorie diet discussed Start phentermine Assessment & Plan (12/21/2019 10:57 AM CDT): Continues to lose wt with focus on steady caloric intake , intermittent fasting, phentermine. Assessment & Plan (05/10/2019 4:18 PM MACHINE CARTON MARKER): Diet and exercise were discussed. 1200 Calorie diet advised 45-60 min aerobic / resistance exercise most days of the week recommended. Start Phentermine Bariatric surgery medically indicated . Pt seems to agreed Referral sent to [facility] bariatric center. Assessment & Plan (10/21/2018 9:02 [...] on file Legal Sex Male 8:47 PM MACHINE CARTON MARKER Gender Identity Male 12/29/2020 10:31 AM CDT [...] 10/29/2024 10:38 AM CDT Plan of Treatment Not on file Goals Goal Patient Goal Type Associated Problems Recent Progress Patient-Stated? Author [facility] Improving(04/2020 12:07 PM MACHINE CARTON MARKER) No Mariana Berg, RN Note: Patient will establish a comfort-function goal and identify the pain level that will allow the patient to perform desired activities and achieve an acceptable quality of life. Medical Devices Implanted Type Area Table Top Tile Setter Device Identifier Shelf Expiration Date Model / Serial / Lot [employer] 6191-1-010 Simplex P Radiopaque Full Dose Cement Bone Sterile - Sna - [id number] Implanted:Qty: 1 on 05/13/2021 by Harinder Orosco MD at [facility] Bone Cement Left: Shoulder [employer] 05/26/2023 6191-1-0 10 / NA / [id number] [employer] [id number] Aequalis Perform Cortiloc 60mm Peg Shoulder Large Component Latex Free - [id number] - [id number] Implanted:Qty: 1 on 05/13/2021 by Harinder Orosco MD at [facility] Other - see comments Left: Shoulder [employer] [id number] 08/13/2025 [id number] / [id number] / [employer] [id number] Head Perform Cocr Modular Humeral - [id number] - [id number] Implanted:Qty: 1 on 05/13/2021 by Harinder Orosco MD at [facility] Other - see comments Left: Shoulder [employer] [id number] 11/14/2025 [id number] / [id number] / [employer] [id number] Rfid Manager Perform Centered Modular Humeral Head Ti - Sna - [id number] Implanted:Qty: 1 on 05/13/2021 by Harinder Orosco MD at [facility] Other - see comments Left: Shoulder [employer] [id number] 04/08/2026 [id number] / NA / [employer] [id number] Stem Perform Sz 3 Humeral - [id number] - [id number] Implanted:Qty: 1 on 05/13/2021 by Harinder Orosco MD at [facility] Other - see comments Left: Shoulder [employer] [id number] 09/18/2025 [id number] / [id number] / [employer] Port 8fr [id number] - [id number] Implanted:Qty: 1 on 10/23/2024 at [facility] Other - see comments [employer] 05/07/2029 [id number] / / [id number] Lt Thr Hip Explanted Type Area Table Top Tile Setter Device Identifier Shelf Expiration Date Model / Serial / Lot [employer] [id number] Guide Pin Perform 3.0 X 100mm - Sna - [id number] Explanted:Qty : 1 on 05/13/2021 by Harinder Orosco MD at [facility] Other - see comments Left: Shoulder [employer] [id number] / NA / Description:For fixation pur poses [...] (HCC) Metastatic malignant neoplasm, unspecified site (HCC) [place] AN PROCEDURE PLACEHOLDER Routine 10/18/2024 8:28 AM CDT [place] AN ELECTIVE ENDOTRACHEAL AIRWAY Routine 10/18/2024 8:28 [...] of Race in Diagnosing Kidney Disease, JASN 202). The CKD-EPI equation should not be used for patients with unstable renal function and has not been validated in children and those over 70. Current interpretive data was last reviewed 2021. Blood 11/26/2024 11:5 2 AM CDT 11/26/2024 12:01 PM CDT us Franklin Phelps MD PhD LAB BLOOD ORDERABLES Fin al Result JOB [facility] Department [place] [address] * (ABNORMAL) Differential, auto (11/26/2024 11:52 AM CDT) Neutrophil abs 6.05 1.50 - 6.50 K/cumm Comment:Testing performed by : [facility], [address] [place] [address] Lymphocyte abs 0.69(L) 0.80 - 3.30 K/cumm [facility] Comment:Testing performed by : [facility], [address] [place], [place] [id number] Monocyte abs 1.11(H) 0.20 - 0.80 K/cumm [facility] Comment:Testing performed by : [facility], [address] [place], [place] [id number] Eosinophil abs 0.08 0.00 - 0.50 K/cumm [facility] Comment:Testing performed by : [facility], [address] [place], [place] [id number] Basophil abs 0.04 0.00 - 0.10 K/cumm [facility] Comment:Testing performed by : [facility], [address] [place], [place] [id number] Neutrophil pct 76.0 % [facility] Comment: Interpretive Data Percent cell count reference ranges are not reported, since discordance with absolute values may lead to misinterpretation of CBC data. Current Interpretive Data was last revised on 2017. Testing performed by: [facility], [address] [place] [phone] Lymphocyte pct 8.6 % [facility] Comment: Interpretive Data Percent cell count reference ranges are not reported, since discordance with absolute values may lead to misinterpretation of CBC data. Current Interpretive Data was last revised on 2017. Testing performed by: [facility], [address] [place] [phone] Monocyte pct 13.9 % [facility] Comment: Interpretive Data Percent cell count reference ranges are not reported, since discordance with absolute values may lead to misinterpretation of CBC data. Current Interpretive Data was last revised on 2017. Testing performed by: [facility], [address] [place], [place] [id number] Eosinophil pct 1.0 % [facility] Comment: Interpretive Data Percent cell count reference ranges are not reported, since discordance with absolute values may lead to misinterpretation of CBC data. Current Interpretive Data was last revised on 2017. Testing performed by: [facility], [address] [place] [phone] Basophil pct 0.6 % JOB MCCOLLUM Comment: Interpretive Data Percent cell count reference ranges are not reported, since discordance with absolute values may lead to misinterpretation of CBC data. Current Interpretive Data was last revised on 2017. Testing performed by: [facility], [address] [place] [phone] Blood 11/26/2024 11:5 2 AM CDT 11/26/2024 11:57 AM CDT us Franklin Phelps MD PhD LAB BLOOD ORDERABLES Fin al Result JOB MCCOLLUM [facility] [place] [address] * (ABNORMAL) CBC with auto differential (11/26/2024 11:52 AM CDT) WBC 7.97 3.80 - 9.90 K/cumm Comment:Testing performed by : [facility], [address] [place] [phone] Hgb 9.2(L) 13.0 - 17.5 g/dL JOB MCCOLLUM Comment:Testing performed by : [facility], [address] [place] [address] Hct 28.1(L) 38.9 - 50.3 % JOB MCCOLLUM Comment:Testing performed by : [facility], [address] [place] [address] Plt 388 150 - 400 K/cumm JOB MCCOLLUM Comment:Testing performed by : [facility], [address] [place] [phone] MPV 6.6(L) 6.8 - 10.4 fL JOB MCCOLLUM Comment:Testing performed by : [facility], [address] [place], [place] [phone] RBC 3.45(L) 4.30 - 5.80 M/cumm [facility] Comment:Testing performed by : [facility], [address] [place], [place] [phone] MCV 81.4 81.3 - 96.4 fL [facility] Comment:Testing performed by : [facility], [address] [place], [place] [id number] MCH 26.6(L) 27.1 - 33.3 pg [facility] Comment:Testing performed by : [facility], [address] [place], [place] [phone] MCHC 32.7 32.3 - 35.7 g/dL [facility] Comment:Testing performed by : [facility], [address] [place], [place] [phone] RDW CV 19.8(H) 11.1 - 14.9 % [facility] Comment:Testing performed by : [facility], [address] [place], [place] [id number] NRBC abs 0.00 0.00 - 0.01 K/cumm [facility] Comment:Testing performed by : [facility], [address] [place], [place] [phone] Blood 11/26/2024 11:5 2 AM CDT 11/26/2024 11:57 AM CDT us Franklin Phelps MD PhD LAB BLOOD ORDERABLES Fin al Result [facility] [place] [address] * Cancer antigen 19-9 (11/26/2024 11:52 AM [...] PhD LAB BLOOD ORDERABLES Fin al Result [facility] [place] [address] * (ABNORMAL) Comprehensive metabolic panel (11/26/2024 11:52 AM CDT) Sodium 134(L) 135 - 145 mmol/L Potassium, pl 3.9 3.3 - 4.9 mmol/L [facility] Chloride 99 97 - 110 mmol/L [facility] CO2 25 22 - 32 mmol/L [facility] Anion gap 10 2 - 15 mmol/L [facility] BUN 8 6 - 25 mg/dL [facility] Creatinine 0.80 0.80 - 1.30 mg/dL [facility] Glucose 332(H) 70 - 199 mg/dL [facility] Comment: Interpretive Data Fasting glucose >/= [...] 2022. Calcium 8.9 8.5 - 10.3 mg/dL [facility] Bilirubin, total 0.6 0.1 - 1.2 mg/dL [facility] Protein, pl 6.6 6.5 - 8.5 g/dL [facility] Albumin 3.4(L) 3.5 - 5.0 g/dL [facility] Alk phos 216(H) 40 - 130 Units/L [facility] ALT 32 7 - 55 Units/L [facility] AST 43 10 - 50 Units/L [facility] Blood 11/26/2024 11:5 2 AM CDT 11/26/2024 12:01 PM CDT Franklin Phelps MD PhD LAB BLOOD ORDERABLES Fin al Result Performing Organization Address [facility] de Phone Number [facility] [place] [address] * eGFR (11/12/2024 10:35 AM CDT) eGFR [...] ORDERABLES Fin al Result Performing Organization Address [facility] Co de Phone Number [facility] Department [place] [address] * (ABNORMAL) CBC with auto differential (11/12/2024 10:35 AM CDT) WBC 3.41(L) 3.80 - 9.90 K/cumm Comment:Testing performed by : [facility], [address] [place], [place] [id number] Hgb 8.8(L) 13.0 - 17.5 g/dL [facility] Comment:Testing performed by : [facility], [address] [place], [place] [id number] Hct 26.7(L) 38.9 - 50.3 % [facility] Comment:Testing performed by : [facility], [address] [place], [place] [id number] Plt 155 150 - 400 K/cumm [facility] Comment:Testing performed by : [facility], [address] [place], [place] [id number] MPV 7.1 6.8 - 10.4 fL [facility] Comment:Testing performed by : [facility], [address] [place], [place] [phone] RBC 3.31(L) 4.30 - 5.80 M/cumm [facility] Comment:Testing performed by : [facility], [address] [place] [address] MCV 80.9(L) 81.3 - 96.4 fL [facility] Comment:Testing performed by : [facility], [address] [place], [place] [id number] MCH 26.7(L) 27.1 - 33.3 pg [facility] Comment:Testing performed by : [facility], [address] [place] [address] MCHC 33.0 32.3 - 35.7 g/dL [facility] Comment:Testing performed by : [facility], [address] [place] [address] RDW CV 15.5(H) 11.1 - 14.9 % [facility] Comment:Testing performed by : [facility], [address] [place] [address] NRBC abs 0.00 0.00 - 0.01 K/cumm [facility] Comment:Testing performed by : [facility], [address] [place], [place] [id number] Blood 11/12/2024 10:3 5 AM CDT 11/12/2024 10:37 AM CDT us Franklin Phelps MD PhD LAB BLOOD ORDERABLES Fin al Result [facility] [place] [address] * Manual Differential (11/12/2024 10:35 AM CDT) Cells Counted 176 Comment:Testing performed by : [facility], [address] [place] [address] Neutrophil abs 2.28 1.50 - 6.50 K/cumm [facility] Comment:Testing performed by : [facility], [address] [place] [address] Lymphocyte abs 0.82 0.80 - 3.30 K/cumm [facility] Comment:Testing performed by : [facility], [address] [place] [address] Monocyte abs 0.20 0.20 - 0.80 K/cumm [facility] Comment:Testing performed by : [facility], [address] [place] [address] Eosinophil abs 0.10 0.00 - 0.50 K/cumm [facility] Comment:Testing performed by : [facility], [address] [place] [address] Basophil abs 0.03 0.00 - 0.10 K/cumm [facility] Comment:Testing performed by : [facility], [address] [place], [place] [id number] Neutrophil pct 67.0 % [facility] Comment: Interpretive Data Percent cell count reference ranges are not reported, since discordance with absolute values may lead to misinterpretation of CBC data. Current Interpretive Data was last revised on 2017. Testing performed by: [facility], [address] [place] [address] [place] [phone] Lymphocyte pct 24.0 % [facility] Comment: Interpretive Data Percent cell count reference ranges are not reported, since discordance with absolute values may lead to misinterpretation of CBC data. Current Interpretive Data was last revised on 2017. Testing performed by: [facility], [address] [place] [phone] Monocyte pct 6.0 % [facility]ER [facility] Comment: Interpretive Data Percent cell count reference ranges are not reported, since discordance with absolute values may lead to misinterpretation of CBC data. Current Interpretive Data was last revised on 2017. Testing performed by: [facility], [address] [place] [phone] Eosinophil pct 3.0 % [facility]ER BJ Comment: Interpretive Data Percent cell count reference ranges are not reported, since discordance with absolute values may lead to misinterpretation of CBC data. Current Interpretive Data was last revised on 2017. Testing performed by: [facility], [address] [place] [phone] Basophil pct 1.0 % C[facility]ER BJ Comment: Interpretive Data Percent cell count reference ranges are not reported, since discordance with absolute values may lead to misinterpretation of CBC data. Current Interpretive Data was last revised on 2017. Testing performed by: [facility], [address] [place] [phone] RBC morphology Normal [facility] Comment:Testing performed by : [facility], [address] [place] [phone] Platelet estimate Adequate [facility] Comment:Testing performed by : [facility], [address] [place] [phone] Blood 11/12/2024 10:3 5 AM CDT 11/12/2024 10:37 AM CDT us Franklin Phelps MD PhD LAB BLOOD ORDERABLES Fin al Result [facility] [place] [address] * (ABNORMAL) Comprehensive metabolic panel (11/12/2024 10:35 AM CDT) Sodium 136 135 - 145 mmol/L Potassium, pl 4.0 3.3 - 4.9 mmol/L [facility] Chloride 100 97 - 110 mmol/L [facility] CO2 26 22 - 32 mmol/L [facility] Anion gap 10 2 - 15 mmol/L [facility] BUN 11 6 - 25 mg/dL [facility] Creatinine 0.82 0.80 - 1.30 mg/dL [facility] Glucose 258(H) 70 - 199 mg/dL [facility] Comment: Interpretive Data Fasting glucose >/= [...] 2022. Calcium 9.1 8.5 - 10.3 mg/dL [facility] Bilirubin, total 0.3 0.1 - 1.2 mg/dL [facility] Protein, pl 6.6 6.5 - 8.5 g/dL [facility] Albumin 3.5 3.5 - 5.0 g/dL [facility] Alk phos 217(H) 40 - 130 Units/L [facility] ALT 38 7 - 55 Units/L [facility] AST 35 10 - 50 Units/L [facility] Blood 11/12/2024 10:3 5 AM CDT 11/12/2024 10:38 AM CDT us Franklin Phelps MD PhD LAB BLOOD ORDERABLES Fin al Result [facility] [place] [address] * eGFR (11/05/2024 2:26 PM CDT) [facility] eGFR >90 >=60 mL/min/1. 73 m2 Comment: [...] ORDERABLES Fin al Result JOB MCCOLLUM [facility] [place] [address] * (ABNORMAL) CBC with auto differential (11/05/2024 2:26 PM CDT) [facility] WBC 4.85 3.80 - 9.90 K/cumm Comment:Testing performed by : [facility], [address] [place] [phone] Hgb 8.8(L) 13.0 - 17.5 g/dL JOB MCCOLLUM Comment:Testing performed by : [facility], [address] [place] [phone] Hct 26.0(L) 38.9 - 50.3 % JOB MCCOLLUM Comment:Testing performed by : [facility], [address] [place] [address] Plt 239 150 - 400 K/cumm [facility] Comment:Testing performed by : [facility], [address] [place] [address] MPV 6.5(L) 6.8 - 10.4 fL [facility] Comment:Testing performed by : [facility], [address] [place] [address] RBC 3.29(L) 4.30 - 5.80 M/cumm [facility] Comment:Testing performed by : [facility], [address] [place] [address] MCV 79.0(L) 81.3 - 96.4 fL [facility] Comment:Testing performed by : [facility], [address] [place] [address] MCH 26.8(L) 27.1 - 33.3 pg [facility] Comment:Testing performed by : [facility], [address] [place] [address] MCHC 34.0 32.3 - 35.7 g/dL [facility] Comment:Testing performed by : [facility], [address] [place] [address] RDW CV 15.1(H) 11.1 - 14.9 % [facility] Comment:Testing performed by : [facility], [address] [place] [address] NRBC abs 0.00 0.00 - 0.01 K/cumm [facility] Comment:Testing performed by : [facility], [address] [place] [address] Blood 11/05/2024 2:26 PM CDT 11/05/2024 2:34 PM CDT us Franklin Phelps MD PhD LAB BLOOD ORDERABLES Fin al Result [facility] Department of Laboratories [place] [id number] * (ABNORMAL) Manual Differential (11/05/2024 2:26 PM CDT) Cells Counted 200 Comment:Testing performed by : [facility], [address] [place], [place] [id number] Neutrophil abs 3.83 1.50 - 6.50 K/cumm C[facility] B[facility] Comment:Testing performed by : [facility], [address] [place] [phone] Lymphocyte abs 0.63(L) 0.80 - 3.30 K/cumm [facility] Comment:Testing performed by : [facility], [address] [place], [place] [id number] Monocyte abs 0.15(L) 0.20 - 0.80 K/cumm [facility] Comment:Testing performed by : [facility], [address] [place], [place] [id number] Eosinophil abs 0.05 0.00 - 0.50 K/cumm [facility] Comment:Testing performed by : [facility], [address] [place] [phone] Basophil abs 0.10 0.00 - 0.10 K/cumm [facility] Comment:Testing performed by : [facility], [address] [place] [phone] Neutrophil pct 79.0 % [facility] Comment: Interpretive Data Percent cell count reference ranges are not reported, since discordance with absolute values may lead to misinterpretation of CBC data. Current Interpretive Data was last revised on 2017. Testing performed by: [facility], [address] [place] [phone] Lymphocyte pct 13.0 % [facility] Comment: Interpretive Data Percent cell count reference ranges are not reported, since discordance with absolute values may lead to misinterpretation of CBC data. Current Interpretive Data was last revised on 2017. Testing performed by: [facility], [address] [place], [place] [id number] Monocyte pct 3.0 % [facility] Comment: Interpretive Data Percent cell count reference ranges are not reported, since discordance with absolute values may lead to misinterpretation of CBC data. Current Interpretive Data was last revised on 2017. Testing performed by: [facility], [address] [place] [phone] Eosinophil pct 1.0 % JOB MCCOLLUM Comment: Interpretive Data Percent cell count reference ranges are not reported, since discordance with absolute values may lead to misinterpretation of CBC data. Current Interpretive Data was last revised on 2017. Testing performed by: [facility], [address] [place] [phone] Basophil pct 2.0 % JOB MCCOLLUM Comment: Interpretive Data Percent cell count reference ranges are not reported, since discordance with absolute values may lead to misinterpretation of CBC data. Current Interpretive Data was last revised on 2017. Testing performed by: [facility], [address] [place] [phone] Metamyelocyte pct 1.0(H) 0.0 - 0.0 % JOB MCCOLLUM Comment:Testing performed by : [facility], [address] [place] [phone] Myelocyte pct 2.0(H) 0.0 - 0.0 % JOB MCCOLLUM Comment:Testing performed by : [facility], [address] [place] [phone] Macrocytes 1+(A) JOB MCCOLLUM Comment:Testing performed by : [facility], [address] [place] [phone] Platelet estimate Adequate [facility] Comment:Testing performed by : [facility], [address] [place] [phone] Blood 11/05/2024 2:26 PM CDT 11/05/2024 2:34 PM CDT us Franklin Phelps MD PhD LAB BLOOD ORDERABLES Fin al Result JOB MCCOLLUM [facility] [place] [address] * (ABNORMAL) Comprehensive metabolic panel (11/05/2024 2:26 PM CDT) Sodium 140 135 - 145 mmol/L Potassium, pl 3.7 3.3 - 4.9 mmol/L [facility] Chloride 104 97 - 110 mmol/L [facility] CO2 26 22 - 32 mmol/L [facility] Anion gap 10 2 - 15 mmol/L [facility] BUN 10 6 - 25 mg/dL [facility] Creatinine 0.78(L) 0.80 - 1.30 mg/dL [facility] Glucose 231(H) 70 - 199 mg/dL [facility] Comment: Interpretive Data Fasting glucose >/= [...] 2022. Calcium 9.0 8.5 - 10.3 mg/dL [facility] Bilirubin, total 0.2 0.1 - 1.2 mg/dL [facility] Protein, pl 6.7 6.5 - 8.5 g/dL [facility] Albumin 3.3(L) 3.5 - 5.0 g/dL [facility] Alk phos 234(H) 40 - 130 Units/L [facility] ALT 44 7 - 55 Units/L [facility] AST 36 10 - 50 Units/L [facility] Blood 11/05/2024 2:26 PM CDT 11/05/2024 2:34 PM CDT us Franklin Phelps MD PhD LAB BLOOD ORDERABLES Fin al Result [facility] [place] [address] * eGFR (10/29/2024 8:05 AM CDT) eGFR >90 >=60 mL/min/1. 73 [...] PhD LAB BLOOD ORDERABLES Fin al Result [facility] [place] [address] * Differential, auto (10/29/2024 8:05 AM CDT) Pathologist [facility] Neutrophil abs 4.64 1.50 - 6.50 K/cumm Comment:Testing performed by : [facility], [facility] [place] [address] Lymphocyte abs 0.86 0.80 - 3.30 K/cumm [facility] Comment:Testing performed by : [facility], [facility] [place] [address] Monocyte abs 0.42 0.20 - 0.80 K/cumm [facility] Comment:Testing performed by : [facility], [address] [place] [phone] Eosinophil abs 0.13 0.00 - 0.50 K/cumm [facility] Comment:Testing performed by : [facility], [address] [place] [phone] Basophil abs 0.06 0.00 - 0.10 K/cumm [facility] Comment:Testing performed by : [facility], [address] [place] [phone] Neutrophil pct 76.0 % [facility] Comment: Interpretive Data Percent cell count reference ranges are not reported, since discordance with absolute values may lead to misinterpretation of CBC data. Current Interpretive Data was last revised on 2017. Testing performed by: [facility], [address] [place] [phone] Lymphocyte pct 14.1 % [facility] Comment: Interpretive Data Percent cell count reference ranges are not reported, since discordance with absolute values may lead to misinterpretation of CBC data. Current Interpretive Data was last revised on 2017. Testing performed by: [facility], [address] [place] [phone] Monocyte pct 6.8 % [facility] Comment: Interpretive Data Percent cell count reference ranges are not reported, since discordance with absolute values may lead to misinterpretation of CBC data. Current Interpretive Data was last revised on 2017. Testing performed by: [facility], [address] [place] [phone] Eosinophil pct 2.1 % [facility] Comment: Interpretive Data Percent cell count reference ranges are not reported, since discordance with absolute values may lead to misinterpretation of CBC data. Current Interpretive Data was last revised on 2017. Testing performed by: [facility], [address] [place] [phone] Basophil pct 1.0 % [facility] Comment: Interpretive Data Percent cell count reference ranges are not reported, since discordance with absolute values may lead to misinterpretation of CBC data. Current Interpretive Data was last revised on 2017. Testing performed by: [facility], [address] [place] [address] Blood 10/29/2024 8:05 AM CDT 10/29/2024 8:10 AM CDT us Franklin Phelps MD PhD LAB BLOOD ORDERABLES Fin al Result [facility] [place] [address] * (ABNORMAL) CBC with auto differential (10/29/2024 8:05 AM CDT) WBC 6.10 3.80 - 9.90 K/cumm Comment:Testing performed by : [facility], [address] [place] [address] Hgb 8.6(L) 13.0 - 17.5 g/dL JOB MCCOLLUM Comment:Testing performed by : [facility], [address] [place] [address] Hct 26.0(L) 38.9 - 50.3 % JOB MCCOLLUM Comment:Testing performed by : [facility], [address] [place] [address] Plt 357 150 - 400 K/cumm JOB MCCOLLUM Comment:Testing performed by : [facility], [address] [place] [address] MPV 6.9 6.8 - 10.4 fL JOB MCCOLLUM Comment:Testing performed by : [facility], [address] [place] [address] RBC 3.20(L) 4.30 - 5.80 M/cumm JOB MCCOLLUM Comment:Testing performed by : [facility], [address] [place] [address] MCV 81.3 81.3 - 96.4 fL JOB MCCOLLUM Comment:Testing performed by : [facility], [address] [place] [address] MCH 26.8(L) 27.1 - 33.3 pg CERUBALDO MCCOLLUM Comment:Testing performed by : [facility], [address] [place] [phone] MCHC 33.0 32.3 - 35.7 g/dL [facility] Comment:Testing performed by : [facility], [address] [place] [phone] RDW CV 14.9 11.1 - 14.9 % [facility] Comment:Testing performed by : [facility], [address] [place] [phone] NRBC abs 0.00 0.00 - 0.01 K/cumm [facility] Comment:Testing performed by : [facility], [address] [place] [phone] Blood 10/29/2024 8:05 AM CDT 10/29/2024 8:10 AM CDT us Franklin Phelps MD PhD LAB BLOOD ORDERABLES Fin al Result [facility] [place] [address] * (ABNORMAL) Comprehensive metabolic panel (10/29/2024 8:05 AM CDT) Sodium 138 135 - 145 mmol/L Potassium, pl 4.3 3.3 - 4.9 mmol/L [facility] Chloride 102 97 - 110 mmol/L [facility] CO2 27 22 - 32 mmol/L [facility] Anion gap 9 2 - 15 mmol/L [facility] BUN 12 6 - 25 mg/dL [facility] Creatinine 0.82 0.80 - 1.30 mg/dL [facility] Glucose 201(H) 70 - 199 mg/dL [facility] Comment: Interpretive Data Fasting glucose >/= [...] Calcium 9.2 8.5 - 10.3 mg/dL [facility] Bilirubin, total 0.3 0.1 - 1.2 mg/dL [facility] Protein, pl 6.9 6.5 - 8.5 g/dL [facility] Albumin 3.2(L) 3.5 - 5.0 g/dL [facility] Alk phos 299(H) 40 - 130 Units/L [facility] ALT 43 7 - 55 Units/L [facility] AST 27 10 - 50 Units/L [facility] Blood 10/29/2024 8:05 AM CDT 10/29/2024 8:09 AM CDT Franklin Phelps MD PhD LAB BLOOD ORDERABLES Fin al Result [facility] [place] [address] * SCAN - PATHOLOGY (10/24/2024 11:55 AM CDT) us Provider Scanning Final Result * CT chest [...] completed, removal can be scheduled by calling [facility] - [phone] [facility] - [phone] Dictated by: Simone Schrader M.D. The radiology [...] was obtained. Prior to beginning the procedure, [place] Protocol was used to confirm the patient's [...] was obtained. Prior to beginning the procedure, [place] Protocol was used to confirm the patient's [...] completed, removal can be scheduled by calling [facility] - [phone] [facility] - [phone] Dictated by: Simone Schrader M.D. The radiology attending physician has personally reviewed this study, and had reviewed and/or edited this written report and agrees with it. Electronically signed by: Peter Silver M.D. us Franklin Phelps MD PhD IMG IR PROCEDURES Final Result * WY AN ELECTIVE ENDOTRACHEAL AIRWAY, WY AN PROCEDURE PLACEHOLDER (10/18/2024 8:28 AM CDT) Narrative Radha Rutherford CRNA - 10/18/2024 8:28 AM CDT Radha Rutherford CRNA 10/18/2024 8:29 AM Airway Patient location: OR Urgency: elective Date/time: 10/18/2024 8:20 AM Indications for airway management: anesthesia and airway protection Difficult airway: no Staff: Placed by: PHYSICIAN OBSTETRICIAN: Radha Rutherford CRNA Emergent airway documentation: Risks [...] - 10/18/2024 8:13 AM CDT GI ENDOSCOPY HURT Patient Name: Oc Foster Procedure Date: 10/18/2024 8:13 AM Date of : 1965 Admit Type: Outpatient Age: 59 Gender: Male Attending MD: Arabella Painting M.D. Room: [facility] ENDOSCOPY ROOM 9 Note Status: Finalized Procedure: [...] passed under direct vision. The PCF [id number] endoscope was introduced through the mouth, and [...] 7:42 AM CDT 10/18/2024 7:42 AM CDT Result [facility] Heidi Montes De Oca MD LAB POCT ORDERABLES - DEVICE Fin al Result Performing Organization Address [facility] [place] [address] * GI - RESULT (10/16/2024 2:25 PM CDT) Anatomical Region Laterality Modality Other Provider Scanning Final Result * -Miscellaneous Molecular Send-out Request (10/15/2024 4:51 PM CDT) Result 1 Test Name: Tempus xT Specimen Type: PB Result: See attached scanned report for results. Comment:Credited, duplicate test. Test name Tempus xT [facility] Blood 10/15/2024 4:51 PM CDT 10/16/2024 3:19 PM CDT Result [facility] Franklin Phelps MD PhD LAB GENETIC TESTING [place] l Result Performing Organization Address [facility] [place] [address] * DPYD full gene sequencing -Miscellaneous Molecular Send-out Request (10/15/2024 4:50 PM CDT) Result 1 Test Name: Dihydropyrimidine Dehydrogenase Gene Full Sequencing ([place]) Specimen Type: PB Result: See attached scanned report for results. Test name Dihydropyrimidine Dehydrogenase Gene Full Sequencing ([place]) [facility] Blood 10/15/2024 4:50 PM CDT 10/16/2024 11:27 AM CDT Narrative [facility] - 10/22/2024 11:49 AM CDT Test Requested:->DPYD full gene sequencing Franklin Phelps MD PhD LAB GENETIC TESTING [place] l Result Performing Organization Address [facility] Co de Phone Number JOB MCCOLLUM [facility] [place] [address] * eGFR (10/15/2024 4:50 PM CDT) eGFR 83 >=60 mL/min/1. 73 m2 Comment: [...] 4:50 PM CDT 10/15/2024 5:30 PM CDT us Franklin Phelps MD PhD LAB BLOOD ORDERABLES Fin al Result Performing Organization Address [facility] Co de Phone Number [facility] [place] [address] * Differential, auto (10/15/2024 4:50 PM CDT) Neutrophil abs 5.78 1.50 - 6.50 K/cumm Comment:Testing performed by : [facility], [address] [place] [phone] Lymphocyte abs 0.89 0.80 - 3.30 K/cumm [facility] Comment:Testing performed by : [facility], [address] [place] [phone] Monocyte abs 0.58 0.20 - 0.80 K/cumm [facility] Comment:Testing performed by : [facility], [address] [place] [phone] Eosinophil abs 0.07 0.00 - 0.50 K/cumm [facility] Comment:Testing performed by : [facility], [address] [place] [phone] Basophil abs 0.06 0.00 - 0.10 K/cumm [facility] Comment:Testing performed by : [facility], [address] [place] [phone] Neutrophil pct 78.3 % [facility] Comment: Interpretive Data Percent cell count reference ranges are not reported, since discordance with absolute values may lead to misinterpretation of CBC data. Current Interpretive Data was last revised on 2017. Testing performed by: [facility], [address] [place] [phone] Lymphocyte pct 12.1 % [facility] Comment: Interpretive Data Percent cell count reference ranges are not reported, since discordance with absolute values may lead to misinterpretation of CBC data. Current Interpretive Data was last revised on 2017. Testing performed by: [facility], [address] [place] [phone] Monocyte pct 7.9 % [facility] Comment: Interpretive Data Percent cell count reference ranges are not reported, since discordance with absolute values may lead to misinterpretation of CBC data. Current Interpretive Data was last revised on 2017. Testing performed by: [facility], [address] [place] [phone] Eosinophil pct 1.0 % [facility] Comment: Interpretive Data Percent cell count reference ranges are not reported, since discordance with absolute values may lead to misinterpretation of CBC data. Current Interpretive Data was last revised on 2017. Testing performed by: [facility], [address] [place] [phone] Basophil pct 0.7 % [facility] Comment: Interpretive Data Percent cell count reference ranges are not reported, since discordance with absolute values may lead to misinterpretation of CBC data. Current Interpretive Data was last revised on 2017. Testing performed by: [facility], [address] [place] [phone] Blood 10/15/2024 4:50 PM CDT 10/15/2024 4:54 PM CDT Franklin Phelps MD PhD LAB BLOOD ORDERABLES Fin al Result Performing Organization Address [facility] Co de Phone Number [facility] Department [place] [address] * (ABNORMAL) Iron profile w/ IBC (10/15/2024 4:50 PM CDT) Pathologist [facility] Iron 21(L) 50 - 150 mcg/dL TIBC 163(L) 250 - 400 mcg/dL [facility] Transferrin saturation 13(L) 20 - 50 % [facility] Blood 10/15/2024 4:50 PM CDT 10/15/2024 5:13 PM CDT Franklin Phelps MD PhD LAB BLOOD ORDERABLES Fin al Result Performing Organization Address [facility] de Phone Number [facility] Department [place] [address] * (ABNORMAL) CBC with auto differential (10/15/2024 4:50 PM CDT) Pathologist [facility] WBC 7.38 3.80 - 9.90 K/cumm Comment:Testing performed by : [facility], [address] [place] [phone] Hgb 9.3(L) 13.0 - 17.5 g/dL [facility] Comment:Testing performed by : [facility], [address] [place] [phone] Hct 27.7(L) 38.9 - 50.3 % [facility] Comment:Testing performed by : [facility], [address] [place] [address] Plt 526(H) 150 - 400 K/cumm [facility] Comment:Testing performed by : [facility], [address] [place] [address] MPV 6.9 6.8 - 10.4 fL [facility] Comment:Testing performed by : [facility], [address] [place] [address] RBC 3.38(L) 4.30 - 5.80 M/cumm [facility] Comment:Testing performed by : [facility], [address] [place] [address] MCV 82.1 81.3 - 96.4 fL [facility] Comment:Testing performed by : [facility], [address] [place] [address] MCH 27.6 27.1 - 33.3 pg [facility] Comment:Testing performed by : [facility], [address] [place] [address] MCHC 33.7 32.3 - 35.7 g/dL [facility] Comment:Testing performed by : [facility], [address] [place] [address] RDW CV 14.2 11.1 - 14.9 % [facility] Comment:Testing performed by : [facility], [address] [place] [address] NRBC abs 0.00 0.00 - 0.01 K/cumm [facility] Comment:Testing performed by : [facility], [address] [place] [address] Blood 10/15/2024 4:50 PM CDT 10/15/2024 4:54 PM CDT us Franklin Phelps MD PhD LAB BLOOD ORDERABLES Fin al Result [facility] [place] [address] * Cancer antigen 19-9 (10/15/2024 4:50 PM [...] ORDERABLES Fin al Result Performing Organization Address [facility] de Phone Number [facility] [place] [place] [address] * aPTT (10/15/2024 4:50 PM CDT) Pathologist [facility] aPTT 36 28 - 38 sec Comment: Interpretive Data Heparin therapeutic range: 66.0 - 100.0 seconds. Range based on correlation with therapeutic heparin activity range of 0.3 - 0.7 Units/mL. Current interpretive data was last revised on 2023. Blood 10/15/2024 4:50 PM CDT 10/15/2024 5:12 PM CDT Result [facility] Franklin Phelps MD PhD LAB BLOOD ORDERABLES Fin al Result Performing Organization Address [facility] de Phone Number [facility] [place] [address] * (ABNORMAL) Protime-INR (10/15/2024 4:50 PM CDT) Pathologist [facility] PT 15.9(H) 9.7 - 13.0 sec INR 1.46(H) 0.90 - 1.20 [facility] Comment: Interpretive data Oral anticoagulant therapeutic ranges: Venous thromboembolism prophylaxis or treatment: 2.0-3.0 CARDIOLOGY Standard range: 2.0-3.0 High-intensity range: 2.5-3.5 Refer to indication-specific guidelines for appropriate target ranges for prosthetic heart valve replacement. Current interpretive data was last revised on 2019. Blood 10/15/2024 4:50 PM CDT 10/15/2024 5:12 PM CDT Result [facility] Franklin Phelps MD PhD LAB BLOOD ORDERABLES Fin al Result Performing Organization Address [facility] de Phone Number [facility] [place] [place] [address] * (ABNORMAL) Ferritin (10/15/2024 4:50 PM CDT) Ferritin 608(H) 30 - 400 ng/mL Blood 10/15/2024 4:50 PM CDT 10/15/2024 5:13 PM CDT Result [facility] Franklin Phelps MD PhD LAB BLOOD ORDERABLES Fin al Result Performing Organization Address [facility] Phone Number [facility] [place] [address] * CEA (10/15/2024 4:50 PM CDT) Pathologist [facility] CEA 2.3 <=5.0 ng/mL Comment: Interpretive Data: Reference Range: Non-Smokers: 0.0 5.0 ng/mL Smokers: 0.0 6.5 ng/mL The Lexi CEA assay procedure was used. Results from different manufacturers or methods may not be comparable. Serial testing should be performed using the same method. Current interpretive data was last revised 2021. Blood 10/15/2024 4:50 PM CDT 10/15/2024 5:13 PM CDT Result [facility] Franklin Phelps MD PhD LAB BLOOD ORDERABLES Fin al Result Performing Organization Address [facility] Co de Phone Number [facility] [place] [address] * (ABNORMAL) Comprehensive metabolic panel (10/15/2024 4:50 PM CDT) Sodium 142 135 - 145 mmol/L Potassium, pl 4.3 3.3 - 4.9 mmol/L [facility] Chloride 99 97 - 110 mmol/L [facility] CO2 31 22 - 32 mmol/L [facility] Anion gap 12 2 - 15 mmol/L [facility] BUN 15 6 - 25 mg/dL [facility] Creatinine 1.04 0.80 - 1.30 mg/dL [facility] Glucose 178 70 - 199 mg/dL [facility] Comment: Interpretive Data Fasting glucose >/= [...] 2022. Calcium 9.5 8.5 - 10.3 mg/dL [facility] Bilirubin, total 0.5 0.1 - 1.2 mg/dL [facility] Protein, pl 7.4 6.5 - 8.5 g/dL [facility] Albumin 2.9(L) 3.5 - 5.0 g/dL [facility] Alk phos 305(H) 40 - 130 Units/L [facility] ALT 34 7 - 55 Units/L [facility] AST 40 10 - 50 Units/L [facility] Blood 10/15/2024 4:50 PM CDT 10/15/2024 5:13 PM CDT us Franklin Phelps MD PhD LAB BLOOD ORDERABLES Fin al Result [facility] [place] [address] * Tempus xT DNA and RNA (10/15/2024 [...] PM CDT [facility] Portal [email or web address] [id number] 10/30/2024 3:24 PM CDT [facility] Comment:Tempus [...] Status: Consensus Evidence ID: NCCN KDB Variant: Gjwa-cy-zaytbeay Label: FDA Off Label FDA Approved?: Yes On label?: No 10/30/2024 3:24 PM CDT [facility] Trial Count 3 10/30/2024 3:24 PM CDT [facility]us: Clinical Trial Match 1 Clinical Trial NCT ID: [id number] Clinical Trial Title: A Study of APG-115 in as a Monotherapy or Combination With Pembrolizumab in Patients With Metastatic Melanomas or Advanced Solid Tumors Clinical Trial URL: [email or web address] rials.gov/ct2/[email or web address] Clinical Phase: Phase 1/Phase 2 Clinical Trial Matches: PEDRO p.R2993* mutation Clinical Trial Distance and Location: [address] [place], [place] 10/30/2024 3:24 PM CDT [facility]: Clinical Trial Match 2 Clinical Trial NCT ID: [id number] Clinical Trial Title: Tumor-agnostic Precision Immuno-oncology and Somatic Targeting Rational for You (TAPISTRY) Platform Study Clinical Trial URL: [email or web address] rials.gov/ct2/[email or web address] Clinical Phase: Phase 2 Clinical Trial Matches: PEDRO p.R2993* mutation Clinical Trial Distance and Location: [address] [place], [place] 10/30/2024 3:24 PM CDT [facility] Tempus: Clinical Trial Match 3 Clinical Trial NCT ID: [id number] Clinical Trial Title: A Study of PARG Inhibitor SQP432 in Participants With Advanced Solid Tumors Clinical Trial URL: [email or web address]://clinicalt rials.gov/ct2/[email or web address] [email or web address] Clinical Phase: Phase 1 Clinical Trial Matches: PEDRO p.R2993* mutation Clinical Trial Distance and Location: [address] [place], [place] 10/30/2024 3:24 PM CDT [facility] [...] PM CDT [facility] HLA-B Typing B*07:02,B*35:03 025 3:24 PM CDT [facility] HLA-C Typing [...] that were not included in this document. Franklin Phelps MD PhD LAB GENETIC TESTING Edit ed Result - Final [facility] [address], [address] [place] [address], [facility] [phone] [facility] [address], [address] [place] [address] * Surgical pathology (10/11/2024 10:47 AM CDT) Tissue (Miscellaneous) 10/11/2024 10:47 AM CDT 10/11/2024 10:47 AM CDT Narrative [facility] PATHOLOGY [facility] - 10/12/2024 3:36 PM CDT EPIC results best viewed via link to PDF [facility] Pathology Consult Service [address], [address], [place] [address] Note to Patients: This report [...] SURGICAL PATHOLOGY REPORT * Consult Report * [facility] is providing an additional review of previously collected tissue. FINAL WITH ADDENDUM Patient Name: OC FOSTER Address: [address] [place], [place] [id number] Gender: M : 1965 (Age: 59) Hospital #: [id number] Patient Type: WUIO Location: UNKNOWN Taken: 10/11/2024 Received: 10/11/2024 Accessioned: 10/11/2024 Reported: 10/12/2024 Physician(s): MD Franklin George M.D. [facility] Department of Pathology [facility] [address] [address] P: [phone] F: [phone] Diagnosis: Consult material received from [place], [place] (OSC: [id number]; 10/03/2024). Liver, left lobe mass, biopsy - [...] Received for review are thirteen slides labeled [id number], accompanied by a corresponding pathology report. The material originates from [place], [place]. Selected slide(s) may be digitally scanned for our files, and all materials are returned to the referring institution, along with a copy of our final report. Addenda/Procedures Addendum Ordered: 10/18/2024 Status: Signed Out Addendum Complete: 10/18/2024y: Ally Torres MD, PHDAddendum Signed Out: 10/23/2024 Addendum Comment Additionally received 8 unstained slides labeled [id number] for additional materials on [id number]. The material originates from [place], [place]. By this signature, I attest that [...] the Department of Pathology and Immunology at [facility], [address] [place] [address] CLIA # [id number] The performance characteristics of the testing cited in this report (if any) were determined by the [facility] Department of Pathology and Immunology [facility], as part of an ongoing director of quality improvement program and in compliance with federally mandated [...] and the performance characteristics determined by the [facility], [facility] Department of Pathology and Immunology. It has not been cleared or approved by the U.S. Food and Drug Administration. Any test designated as LDT was developed and its performance characteristics determined by [facility]. It has not been cleared or approved by the FDA. This test is used for clinical purposes and should not be regarded as investigational or for research. Report images and/or scanned reports, if included, only viewable in PDF version of report. Heidi Montes De Oca MD LAB PATHOLOGY ORDERABLES Final R esult [facility] [address] [address] * SCAN - PATHOLOGY (10/08/2024 3:23 PM [...] images may or may not represent the [place] source data set and thus may contain changes that may lower the accuracy of this second-opinion interpretation. Electronically signed by: Abel De La Paz M.D. Narrative 10/05/2024 3:22 PM CDT EXAMINATION: RADIOLOGY CONSULTATION ON OUTSIDE IMAGING STUDY STUDY INITIALLY PERFORMED: 09/30/2024 at [facility]. TYPE OF STUDY: Multiple CT images of [...] IMAGING STUDY STUDY INITIALLY PERFORMED: 09/30/2024 at [facility]. TYPE OF STUDY: Multiple CT images of [...] images may or may not represent the [place] point source data set and thus may contain changes that may lower the accuracy of this second-opinion interpretation. Electronically signed by: Abel De La Paz M.D. Heidi Montes De Oca MD IMG CT PROCEDURES Final Result * SCAN - LABS (09/21/2024) us Provider Scanning Final Result * Albumin Creatinine Ratio, Urine (04/06/2024 9:50 AM CDT) Albumin Ur 27.5 mg/L Comment: Interpretive Data No reference range established. Current interpretive data was last revised 2018. Creatinine Ur 240.8 mg/dL J[facility] Comment: Interpretive Data No reference range established. Current interpretive data was last revised 2018. Albumin Creatinine Ratio, Ur 11 1 - 29 mg/g [facility] Urine 04/06/2024 9:50 AM CDT 04/06/2024 2:41 PM CDT Haily Siddiqi [employer] LAB URINE ORDERABLES [facility] Result JOB [id number] [address] [place] [address] * Lipid panel (04/06/2024 9:50 AM CDT) [...] on 2018. Triglycerides 84 <=149 mg/dL [facility] REYES Comment: Interpretive Data Ages [...] on 2018. HDL 46 >=40 mg/dL J[facility] REYES Comment: Interpretive Data Ages [...] 2018. LDL, calculated 91 <=129 mg/dL [facility] REYES Comment: Interpretive Data Ages [...] revised on 2018. Chol/HDL ratio 3 JOB ERIC Blood 04/06/2024 9:50 AM CDT 04/06/2024 2:41 PM CDT Result [facility] Haily Siddiqi [employer] LAB BLOOD ORDERABLES [place] Result [place] [address] [address] [place] [address] * (ABNORMAL) POCT hemoglobin A1c (04/06/2024 9:05 AM CDT) Hemoglobin A1C, POC 8.7 4.0 - 5.6 % Blood 04/06/2024 9:05 AM CDT Result [facility] Haily Siddiqi [employer] POINT OF CARE TEST ORDERA BLES Final Result * (ABNORMAL) DIABETES EYE EXAM (01/17/2024 8:11 AM CDT) Result [facility] Historical Provider HEALTH MAINTENANCE Final Result * Diabetic Foot Exam (12/12/2019) Result [facility] Historical Provider HEALTH MAINTENANCE Final Result * PSA screen (10/11/2017 11:35 AM CDT) SCRIBED PSA, Serum 1.5 0.0 - 4.0 [facility] Blood specimen (specimen) Result [facility] Historical Provider LAB BLOOD ORDERABLES Edit ed Result - Final [facility] from Last 3 Months or Most Recently Relevant to Health Maintenance Insurance [employer] PLUS Advance Directives For more information, please contact: [phone] * Full Code (Latest Code Status on File) Date Activated Date Inactivated Comments 10/18/2024 7:56 AM 10/24/2024 1:23 PM * Full Code Date Activated Date Inactivated Comments 05/13/2021 5:01 PM 05/14/2021 2:11 PM Care Teams Materials Branch Chief Relationship Specialty Start Date End Date Vu Condon DO [address] [address] PCP - General Internal Medicine 10/04/24 Franklin Phelps MD PhD [address] [place] [address] Medical Oncologist/Public Relations Assistant Medical Oncology 10/25/24
--- OUTSIDE RECORDS SUMMARY | 2024-11-30 17:05 | XMS_ITS | Data Portability ---
Author Organization [place] - [facility], Main Office Address [address] [place] [address] Care Team Providers Care Accounts Receivable Collector Name Role Phone COLT BALLESTEROS Primary Care Provider COLT BALLESTEROS Referring Provider [phone] Assessment Encounter Date Assessment Date Assessment LastModified by Organization Details LastModified Time 05/03/2024 05/03/2024 This note is dictated and transcribed by [employer]. Outbound Sales Representative variances may occur. Despite proofreading, typographical errors may occur. Occasional wrong-word or 'xeqcd-i-mjrl' substitutions may have occurred due to the inherent limitations of voice recording. Read the chart carefully and recognize, using context, where substitutions have occurred. Not available 05/03/2024 15:58:54 07/05/2024 07/05/2024 This note is dictated and transcribed by [employer]. Outbound Sales Representative variances may occur. Despite proofreading, typographical errors may occur. Occasional wrong-word or 'vbtux-p-klya' substitutions may have occurred due to the inherent limitations of voice recording. Read the chart carefully and recognize, using context, where substitutions have occurred. Not available 07/05/2024 15:44:48 11/15/2024 11/15/2024 This note is dictated and transcribed by [employer]. Outbound Sales Representative variances may occur. Despite proofreading, typographical errors may occur. Occasional wrong-word or 'irqiy-a-fqrj' substitutions may have occurred due to the inherent limitations of voice recording. Read the chart carefully and recognize, using context, where substitutions have occurred. Not available 11/15/2024 15:51:32 Plan of Treatment Reminders Order Date Submit Date Provider Last Modified By Organization Details Last Modified Time Details Appointments None recorded. Lab None recorded. Referral None recorded. Procedures None recorded. Surgeries septoplasty (SURG) 2024 025 [email or web address] Not available 09:46:22 Imaging None recorded. Medication Orders doxycycline hyclate 100 mg tablet 2024 025 [id number], [address], [place], [place], [id number], 08:42:14 Medrol (King) 4 mg tablets in a dose pack 2024 [facility] #[id number], [address], [place], [place], [id number], 08:42:19 Patient TargetsNo targets recorded. Patient Instructions Encounter Date Encounter Id Patient Instructions Last Modified By Organization Details Last Modified Time 08/29/2024 [id number] doxycycline and Medrol Dosepak prescribed for antimicrobial coverage and inflammation reduction. Advised to closely monitor his blood sugars while taking the Medrol Dosepak. States that he has been on steroid injections in the past and is not concerned with being on a steroid. He will have a sinus CT completed. We will follow up when those results become available. [email or web address] Not available 08/29/2024 16:03:49 Reason for Referral None Reported. Results Created Date Observation Date Name Description Value Unit Range Abnormal Flag Note LastModifiedBy Organization Detail LastModifiedTime 04/02/20 XR, foot, 3 or more view No observ ation record ed. [email or web address] [facility] [place] [address], [place], [address], 04/02/2024 16:32:47 09/15/19 25 09/13/2024 CT, sinus es, w/o contr ast No observ ation record ed. [facility] [address], [place], [address], 09/14/2024 09:18:32 Result Notes None recorded. Problems Name Problem SNOMED Code Status Onset Date Resolution Date Notes Provider Name and Address Organization Details Recorded Time Plantar fasciitis of left foot 8383781948802 9101 Active 2017 Varun Nelson, ROJELIO [address] [facility], [facility] [address], [place], [address] , [facility] 5 15:51:48 Ankle pain 586080937 Active 2019 Not Available [employer] 3 20:23:44 Ankle pain 554226704 Active 2020 Not Available [facility] 3 20:23:44 Ankle pain 220990626 Active 2019 Not Available [facility] 3 20:23:44 Left Achilles tendinitis 6061862000182 02 Active 2020 Not Available [facility] 3 20:23:44 Arthritis 3999423 Active 2017 Not Available [facility] 3 20:23:44 Sleep disorder 24554011 Active 2017 Not Available [facility] 3 20:23:44 Obesity 831469927 Active 2017 Not Available [facility] 3 20:23:44 Diabetes mellitus 63337774 Active 2017 Not Available [facility] 3 20:23:44 Osteoarthr itis of ankle and/or foot 48271227 Active 2019 Not Available [facility] 3 20:23:44 Pain of right knee joint 9077045399798 00 Active 2022 SHARON Conrad null, [place] [employer] [facility] [employer] [facility] 3 09:11:59 Pain of left knee joint 8896114242836 07 Active 2022 JOHNNIE Crowell null, [employer] [facility] [employer] [facility] 3 11:15:12 Bilateral osteoarthr itis of knees 3065006717844 07 Active 2022 Arabella denise, [place] [employer] [facility] 3 11:39:59 Pain of left heel 5360234443548 109 Active 2023 Varun Nelson DPM [address], [place], [address] , [facility] [employer] [facility] 4 16:25:24 Chronic sinusitis 59205884 Active 2024 Bárbara Desouza RN null, [facility] [employer] [facility] 5 15:58:48 Deviated nasal septum 834347766 Active 2024 Romeo Kaur MD [address], [address], [place], [address] , [facility] [employer] [facility] [address] [employer] 5 11:05:47 Notes:back/neck problems, ea r problems, muscle pain, excessive thirst, Problem Notes None recorded. Procedures Surgical History Date Name Laterality Status Provider Name and Address Organization Details Recorded Time 11/16/19 25 Plantar Fascia Injection Left Foot completed Varun Nelson DPM [address], [address], [place], [address], [facility] [employer] [facility] [address] [employer] 11/15/2024 15:51:19 05/03/20 24 Plantar Fascia Injection Left Foot completed Varun Nelson DPM [address], [address], [place], [address], [facility] [employer] [facility] [employer] [facility] [address] [employer] 05/09/2024 17:46:33 11/25/19 23 Ortho - Cortisone Injection completed Nicolasa Arias NP [address], [address], [place], [address], [facility] [employer] [facility] [address] [employer] 11/24/2022 19:12:14 repair of hip completed Erika Cosby [facility] [employer] [facility] [address] [employer] 04/02/2024 16:38:46 arthroplasty of left shoulder completed Erika Cosby [facility] [employer] 04/02/2024 16:39:04 Imaging Results None recorded. Procedure Notes None recorded. Medical Equipment None Reported. Allergies Allergen ID Allergen Name Allergen Category Reaction Reaction Severity Criticality Documentation Date Start Date Code Code System Note Provider Name and Address Organization Details Recorded Time 03129 Product containin g penicilli n (product) medicatio n Not available Not available Not available 08/25/2022 10873 8001 SNOMED Not Available [facility] 3 20:25:00 31918 Farxiga medicatio n Not available Not available Not available 10/15/2022 75714 72 RxNorm Hoda Acosta , ATC L null, [place] [facility] 3 09:17:51 Medications Name Sig Start Date [...] completed Not Available Not Available Not Available ondansetron HCl 8 mg tablet TAKE 1 TABLET BY MOUTH EVERY 8 HOURS NEEDED FOR NAUSEA. USE IF PROCHLORP ERAZINE DOESNT STOP NAUSEA active Not Available Not Available No t Available meloxicam 15 mg tablet TAKE 1 [...] completed Not Available Not Available Not Available omeprazole 40 mg capsule,del ayed release TAKE 1 CAPSULE BY MOUTH TWICE DAILY 30 MINUTES BEFORE BREAKFAST AND DINNER active Not Available Not Available No t Available tramadol 50 mg tablet TK 1 T PO BID PRF PAIN 10/15 completed Not Available Not Available Not Available glimepiride 2 mg tablet 08/29 completed Not Available Not Available Not Available lidocaine-p rilocaine 2.5 %-2.5 % topical cream PLACE CREAM OVER PORT SITE 30-45 MINUTES BEFORE EACH USE. COER WITH PLASTIC WRAP OR PRESS FOR NAUSEA SEAL active Not Available Not Available No t Available glimepiride 1 mg tablet 10/15 completed Not Available Not Available Not Available nortriptyli ne 25 mg capsule active Not Available Not Available Not Available bupropion HCl 100 mg tablet 10/15 completed Not Available Not Available Not Available famotidine 20 mg tablet TK 1 T PO D 08/09 completed Not Available Not Available Not Available oxycodone-a cetaminophe n 10 mg-325 mg tablet TAKE 1 TABLET BY MOUTH EVERY 6 HOURS NEEDED FOR PAIN active Not Available Not Available No t Available lorazepam 2 mg tablet 10/15 completed [...] pantoprazol e 40 mg tablet,forest yed release TAKE 1 TABLET BY MOUTH EVERY 12 HOURS active Not Available Not Available No t Available dexamethaso ne 4 mg tablet TAKE 2 TABLETS BY MOUTH ONCE DAILY ON DAYS 2-3 OF EACH CYCLE active Not Available Not Available No t Available clotrimazol e-betametha sone 1 %-0.05 % [...] and Address Organization Details Last Updated DateTime 5 175.26 cm 44 kg/m2 427744. 53 g 79 /min 14 /min 98 % 98 % 134 mm[Hg] 72 mm[Hg] Erika Cosby [facility] 15:22:57 Date Recorded Body height Body mass index (BMI) Body weight Body temperature Provider Name and Address Organization Details Last Updated DateTime 08/29/2024 175.26 cm 42.9 kg/m2 606043.66 g 97.5 [degF] Emely Diaz CNA [facility] 08/29/2024 15:35:34 Date Recorded Body height Body mass index (BMI) Body weight Body temperature Provider Name and Address Organization Details Last Updated DateTime 09/17/2024 175.26 cm 42.5 kg/m2 889978.6 g 97.3 [degF] Bárbara Desouza RN [facility] [employer] [facility] 09/17/2024 10:49:30 Date Recorded Heart rate Systolic blood pressure Diastolic blood pressure Provider Name and Address Organization Details Last Updated DateTime 11/15/2024 77 /min 112 mm[Hg] 63 mm[Hg] Ana Paula Jones [facility] [employer] [facility] 11/15/2024 15:40:00 Date Recorded Body height Body mass index (BMI) Body weight Provider Name and Address Organization Details Last Updated DateTime 11/15/2024 175.26 cm 42.5 kg/m2 768716.6 g Erika Cosby [facility] 11/15/2024 15:33:24 Date Recorded Body height Body mass index (BMI) Body weight Heart rate Respiratory rate Oxygen saturation Oxygen saturation in Arterial blood by Pulse oximetry Provider Name and Address Organization Details Last Updated DateTime 175.26 cm 44 kg/m2 296208. 53 g 89 /min 14 /min 99 % 99 % Erika Cosby [facility] 15:47:07 Social History None recorded. Functional Status Question Answer Note LastModified by Organizat ion Details LastModified Time What is your level of alcohol consumption? Occasional [email or web address] Information not available 08/29/2024 Mental Status None recorded. Family History Relationship Description Onset Age of this Age Resolved Age Notes LastModified by Organization Details LastModified Time Mother Family history of stroke Not available 10/2024 15:18:16 Father Family history of malignant neoplasm [email or web address] Not available 10/2024 15:18:16 Father Arthritis [email or web address] Not avail able 08/29/2024 15:18:16 Maternal Grandmother Diabetes mellitus [email or web address] Not available 09/26 09:19:58 Maternal Grandmother Arthritis [email or web address] Not available 08/29/2024 15:18:16 Paternal Grandmother Diabetes [...] SNOMED-CT Code Diagnosis ICD10 Code Diagnosis Note [id number] Varun Nelson DPM _ATHENA_Meghann IGRATION_ DEFAULT_1 _1 , 11/03/2020 00:00:00 11/03/2020 16:51:59 [id number] Varun Nelson DPM [facility] [place] [address] [facility] [address] [place] [address] 01/13/2021 00:00:00 01/13/2021 11:22:24 [id number] Nicolasa Arias NP [facility] [place] [address] [place] [address] 10/15/2022 09:04:20 10/15/2022 09:55:30 Pain of right knee joint 6250073001 71418 M25.561 [id number] Nicolasa Arias NP [facility] [place] [address] [place] [address] 11/24/2022 10:11:52 11/24/2022 10:44:54 Pain of right knee joint 1133957209 72673 M25.255 [id number] Og Valenzuela MD [facility] [place] [address] [place] [address] 02/23/2023 11:08:11 02/23/2023 11:46:40 Pain of left knee joint 7184101788 56787 M25.562 Pain of ri ght knee joint 7732223373 90739 M25.561 Bilateral osteoarthritis of knees 3899595139 83280 M17.0 [id number] MD SAEED [facility] [place] [address] [place] [address] 11/09/2023 10:01:09 11/09/2023 11:24:17 Bilateral osteoarthritis of knees 7736644118 19272 M17.0 [id number] Varun Nelson DPM [facility] [place] [address] [place] [address] 04/02/2024 15:25:55 04/03/2024 11:48:50 Pain of left heel 5493098778 824353 M79.672 as below Plantar fa sciitis of left foot 7440418813 3328087 M72.2 discussed optionsrec ommend supportive shoe gear and stretching NSAIDs over-the-c ounterrece ntly obtained steroid injection left heelfollow -up in June for surgery clearance [id number] Varun Nelson DPM [facility] [place] [address] [facility] [address] [place] [address] 05/03/2024 15:31:03 06/22/2024 11:23:33 Plantar fasciitis of left foot 5386798026 7279371 M72.2 discussed optionsinj ection todayrecom mend supportive shoe gear and stretching NSAIDs over-the-c ountertoda y injection- left heelfollow -up in June for surgery clearance- EPF left foot if not resolved [id number] Varun Nelson DPM [facility] [place] [address] [place] [address] 07/05/2024 15:15:37 07/10/2024 15:26:59 Plantar fasciitis of left foot 2381838049 5359771 M72.2 discussed optionsRes olvedrecom mend supportive shoe gear and stretching if continues to redevelop chronic pain then would recommend HPF procedure to the left foot patient would need clearance prior to this procedure [id number] MD REFUGIO Cameron[facility] [place] [address] [place] [address] 08/29/2024 15:18:03 08/29/2024 16:04:20 Chronic sinusitis 82584582 J32.9 [id number] Romeo Kaur MD [facility] [place] [address] [place] [address] 09/17/2024 10:46:06 09/19/2024 15:22:11 Deviated nasal septum 014695865 J34.2 [id number] Varun Nelson DPM [facility] [place] [address] [place] [address] 11/15/2024 15:30:07 11/16/2024 11:23:56 Pain of left heel 3079488691 055121 M79.672 as below Plantar fa sciitis of left foot 6632474062 2481639 M72.2 discussed optionsRes olvedrecom mend supportive shoe gear and stretching hold off on surgery due to recent diagnosis of stage four pancreatic cancerinje ction todayfollo w up as needed Health Concerns Section Related Observation LastModified by Organization Detai ls LastModified Time None Recorded Concern Status LastModified by Organization Details LastModified Time None Recorded Advance Directives Directive None Recorded Payers Encounter Date Sequence Insurance Name Policy Number Policy Marcum Covered Member ID Marcum Member ID Guarantor Name 05/03/2024 1 [facility] [id number] Taisha L Cristian [id number] Oc Foster 07/05/2024 1 [facility] [id number] Taisha L Foster [id number] Oc Foster 08/29/2024 1 [facility] [id number] Taisha L Foster [id number] Oc Foster 09/17/2024 1 [facility] [id number] Taisha L Foster [id number] Oc Foster 11/15/2024 1 [facility] [id number] Taisha L Cristian [id number] Oc Foster Notes Date Note Type Note Provider Name and Address Organization Details Recorded Time 05/03/2024 text/html . Patient is a 59-year-old male he returns for plantar fasciitis of the left foot he states that he has had some improvement states that he mainly has pain when he is standing and walking. Patient denies any signs of infection or injury to the area. Patient denies any other complaints. Varun Nelson DPM [address], [facility] [address], [place], [address], [facility] 05/09/2024 17:47:21 07/05/2024 text/html . Patient is [...] any other complaints. Varun Nelson DPM [address] [facility] [address], [place], [address], [facility] 07/05/2024 15:45:31 08/29/2024 text/html this patient has a past medical history significant for diabetes, obesity, degenerative joint disease, and plantar fasciitis who presents to the office for persistent nasal congestion, PND, sinus pressure, and cough that has been present for years. He states that he is often treated for a sinus infection approximately 3-4 times annually. He has used qjfo-ktz-upemnsv antihistamine and Flonase nasal sprays without symptom relief. He has not been on any recent antibiotics and/or steroids. He has not had any recent imaging. MARIA ISABEL Peres [address] [facility] [address], [place], [address], [facility] 08/29/2024 16:03:53 09/17/2024 text/html this patient rep orts nasal congestion and had a CT. This reveals mild mucosal thickening but a deviated septum. Romeo Kaur MD [address], [address], [place], [address], [facility] 09/17/2024 11:06:18 11/15/2024 text/html . Patient is a 59-year-old male he presents to the office with complaints of plantar fasciitis and left heel pain. Patient states he has pain when he gets up from rest and walking. Patient explains that he was recently diagnosed with stage IV pancreatic cancer that has metastasized to his liver. Patient has been on chemotherapies underwent 2 rounds already. Patient states he denies any open wounds or infection. Patient denies any other complaints. Varun Nelson DPM [address] [facility], [facility] [address], [place], [address], [place] [facility] 11/15/2024 15:52:52
--- OUTSIDE RECORDS SUMMARY | 2024-11-30 17:05 | XMS_ITS | Clinical Summary ---
Author Organization [facility] Address [address] [place] [address] Phone Care Team Providers Care Fire Protection Designer Name Role Phone Unavailable Primary Care Provider [...] (1 of 3 - 19+ 3-dose series) 09/1983 COLORECTAL SCREENING 2010 Colorectal Cancer Screening 2010 FIT-DNA Q 3 years 2010 FIT/FOBT Q 1 year 2010 Flex Sig/CT Colonography Q 5 years 2010 ZOSTER VACCINE (1 of 2) 2015 INFLUENZA VACCINE (#1) 2024
--- OUTSIDE RECORDS SUMMARY | 2024-11-30 17:06 | XMS_ITS ---
Author Organization [facility] [place] Address [address] [place] [address] Care Team Providers Care Sales Forecast Analyst Name Role Phone Vu Condon Primary Care Provider [phone] Franklin Phelps MD PhD Unavailable [phone] Active Problems Problem Noted Date Diagnosed Date [...] Phentermine Assessment & Plan (05/06/2023 9:22 AM CAR UNLOADER HELPER): Start phentermine Diet and exercise Assessment & Plan (09/16/2022 11:32 AM CDT): Chronic problem. Discussed healthy diet and importance of regular physical activity (20- 30min/day, 150min/wk). SRI on CPAP 05/07/2021 Primary osteoarthritis of left shoulder 04/14/20 21 Overview (04/14/2021): Added automatically from request for surgery [id number] Diabetic polyneuropathy asso ciated with type 2 [...] Atovastatin 20mg. Last lipid panel: 01/13/23 LDL=93, TV=189. No changes at this time. Will update lipid panel today. Verified that he uses [employer]. Aware to check results/results letter in mychart. Will contact by phone if needed. Assessment & Plan (01/13/2023 10:12 AM CDT): Chronic problem, controlled on current Atovastatin 20mg. Last lipid panel: 01/13/22 LDL=80, TG=95. No changes at this time. Will update lipid panel today. Verified that he uses [employer]. Aware to check results/results letter in [employer]. Will contact by phone if needed. Assessment & Plan (09/16/2022 11:34 AM CDT): Chronic problem, controlled on current Atovastatin 20mg. Last lipid panel: 01/13/22 LDL=80, TG=95. No changes at this time. Assessment & Plan (05/13/2022 10:18 AM CAR UNLOADER HELPER): Chronic problem. On statin therapy, no changes. Assessment & Plan (01/13/2022 9:39 AM CDT): Chronic, well controlled Low fat Low cholesterol diet Exercise Continue statin therapy Check lipid profile Assessment & Plan (08/17/2021 4:39 PM CAR UNLOADER HELPER): Chronic, well controlled Continue current meds Assessment & Plan (12/21/2019 10:56 AM CDT): At goal on current medications. Continue statin therapy. Assessment & Plan (09/13/2019 2:22 PM CDT): At goal on current medications. Continue statin therapy. Assessment & Plan (05/10/2019 4:20 PM CAR UNLOADER HELPER): Goal of treatment , LDL cholesterol less [...] panel Assessment & Plan (06/06/2018 2:28 PM CAR UNLOADER HELPER): Goal of treatment , LDL cholesterol less [...] update labs today. Verified that he uses [facility]. Aware to check results/results letter in [employer]. Will contact by phone if needed. Assessment & Plan (01/13/2023 10:08 AM CDT): Chronic problem, controlled on current valsartan-hctz 160-25mg daily. No changes at this time. Will update labs today. Verified that he uses [employer]. Aware to check results/results letter in mychart. Will contact by phone if needed. Assessment & Plan (09/16/2022 11:32 AM CDT): Chronic problem, controlled on current valsartan-hctz 160-25mg daily. No changes at this time. Assessment & Plan (05/13/2022 10:18 AM CAR UNLOADER HELPER): Controlled on current medications, no changes. Assessment & Plan (01/13/2022 9:40 AM CDT): Chronic, well controlled Continue current meds Check MA Assessment & Plan (12/21/2019 10:55 AM CDT): Controlled on current medications. Continue plan. Assessment & Plan (09/13/2019 2:22 PM CDT): Controlled on current medications. Continue plan. Assessment & Plan (05/10/2019 4:19 PM CAR UNLOADER HELPER): Goal blood pressure is less than 140/85 Low salt diet recommended Daily aerobic exercise Continue current meds, including NICHOLE-I or ARB Check microalbumin Assessment & Plan (02/06/2019 3:15 PM CDT): Controlled on current medications. Assessment & Plan (10/21/2018 9:02 PM CDT): At goal on current medications. Assessment & Plan (06/06/2018 2:28 PM CAR UNLOADER HELPER): Goal blood pressure is less than 140/85 Low salt diet recommended Daily aerobic exercise Continue current meds, including NICHOLE-I or ARB Assessment & Plan (12/22/2017 10:39 AM CDT): Controlled on current medications. Assessment & Plan (09/21/2017 2:12 PM CDT): Controlled on current medications. Assessment & Plan (06/21/2017 11:48 AM CAR UNLOADER HELPER): Goal blood pressure is less than 140/85 Low salt diet recommended Daily aerobic exercise Continue current meds, including NICHOLE-I or ARB Nontoxic uninodular goiter 11/10/2013 Overview (09/29/2016): NONTOX UNINODULAR GOITER Assessment & Plan (09/02/2020 4:22 PM CAR UNLOADER HELPER): Thyroid ultrasound performed today Right lower thyroid [...] update labs today. Verified that he uses [employer]. Aware to check results/results letter in [employer]. Will contact by phone if needed. UTD [...] Humalog Assessment & Plan (05/06/2023 9:22 AM CAR UNLOADER HELPER): Hba1c was Lab Results Component Value Date [...] update labs today. Verified that he uses [employer]. Aware to check results/results letter in [employer]. Will contact by phone if needed. DM [...] sugars. Assessment & Plan (05/13/2022 10:20 AM CAR UNLOADER HELPER): Chronic problem, stable per Treasure download. We [...] hypoglycemia Assessment & Plan (08/17/2021 4:38 PM CAR UNLOADER HELPER): Hba1c was Lab Results Component Value Date [...] Metformin Assessment & Plan (09/02/2020 4:21 PM CAR UNLOADER HELPER): Hba1c was Lab Results Component Value Date [...] exam. Assessment & Plan (05/10/2019 4:19 PM CAR UNLOADER HELPER): Hba1c was Lab Results Component Value Date [...] exercise. Assessment & Plan (06/06/2018 2:39 PM CAR UNLOADER HELPER): Hba1c was Lab Results Component Value Date [...] accountability. Assessment & Plan (06/21/2017 2:06 PM CAR UNLOADER HELPER): Your Hba1c today was: 9.7 meaning a [...] Pain in soft tissues of limb 03/12/2013 Current Treatment and Therapy Plans Gemcitabine / Albumin-bound PACLItaxel (Abraxane) 28 Day Cycles - Pancreas* Plan Start Date:10/28/2024 Plan Provider:Franklin Phelps MD PhD Linked Problems Malignant neoplasm of head o f pancreas (HCC)Malignant neoplasm metastatic to liver (HCC) Treatment Medications Current Day (Day 8 , Cycle 2 - Planned for 12/03/2024) Next Day (Day 15, Cycle 2 - Planned for 12/10/2024) albumin-bound PACLItaxel (ABRAXANE)albumin-bound PACLItaxel (ABRAXANE) 5 mg/mLdexAMETHasone (DECADRON)gemcitabine (GEMZAR)gemcitabine (GEMZAR) IVPB in 250 mL (using 38 mg/mL gemCITabine) (J9201) albumin-bound PACLItaxel (ABRAXANE) 5 mg/mL IVPB in empty container 305 mggemcitabine (GEMZAR - J9201) 2,430 mg in sodium chloride 0.9% 250 mL IVPB albumin-bound PACLItaxel (ABRAXANE) 5 mg/mL IVPB in empty container 305 mggemcitabine (GEMZAR - J9201) 2,430 mg in sodium chloride 0.9% 250 mL IVPB mFOLFOX6+Juanita: (Fluorouracil / Leucovorin / OXALIplatin / Bevacizumab) 14 Day Cycles - Colon/Rectum* Plan Start Date:10/25/2024 Plan Provider:Franklin Phelps MD PhD Linked Problems Duodenal adenocarcinoma (HCC )Malignant neoplasm metastatic to liver (HCC)Malignant neoplasm of head of pancreas (HCC) Treatment Medications Current Day (Day 1 , Cycle 1 - Planned for 10/29/2024) Next Day (Day 1, Cycle 2 - Planned for 11/12/2024) bevacizumab-awwb (MVASI)fluorouracil (ADRUCIL)leucovorinoxali platin (ELOXATIN) bevacizumab-awwb (MVASI) 625 mg in sodium chloride 0.9% 100 mL IVPBfluorouraciL (ADRUCIL) 2,900 mg in cadd cassette 58 mL infusion - for home infusionleucovorin 975 mg in dextrose 5% 250 mL IVPBoxaliplatin (ELOXATIN) 205 mg in dextrose 5% 250 mL IVPB bevacizumab-awwb (MVASI) 625 mg in sodium chloride 0.9% 100 mL IVPBfluorouraciL (ADRUCIL) 5,850 mg in cadd cassette 117 mL infusion - for home infusionleucovorin 975 mg in dextrose 5% 250 mL IVPBoxaliplatin (ELOXATIN) 205 mg in dextrose 5% 250 mL IVPB Past Treatment and Therapy Plans No past plan information found. Lifetime Dose Tracking * Chemical Lifetime Dose Automatic Entry Manual Entr y Fluoro Time 1.292 minutes 1.292 minutes 0 minutes Air kerma at the reference point (Ka,r) 50.9 mGy 5 0.9 mGy 0 mGy DLP 1,822 mGycm 1,822 mGycm 0 mGycm Resolved Problems Problem Noted Date Diagnosed Date Resolved Date Morbid (severe) obesity due to excess calories 01/13/2022 09/16/2022 Body mass index 40.0-44.9, adult (CMS/HCC) 01/13/2022 09/16/2022 Hyperlipidemia 09/21/2017 09/16/2022 Assessment & Plan (12/22/2017 10:39 AM CDT): LDL at goal on current dose of statin Assessment & Plan (09/21/2017 2:11 PM CDT): Continue statin therapy BMI 40.0-44.9, adult 06/21/2017 023 Assessment & Plan (09/02/2020 4:22 PM CAR UNLOADER HELPER): Patient refusing the consideration for bariatric surgery Phentermine was started because elevated blood pressure Will try Wellbutrin Assessment & Plan (09/13/2019 2:22 PM CDT): Importance of following diet and exercising discussed. Assessment & Plan (02/06/2019 3:14 PM CDT): Recommend he try keto diet again Assessment & Plan (12/22/2017 10:39 AM CDT): Ketogenic diet reviewed Morbid obesity ([facility]) 06/21/2017 Assessment & Plan (04/06/2021 1:02 PM CDT): Worsening Low calorie diet discussed Start phentermine Assessment & Plan (12/21/2019 10:57 AM CDT): Continues to lose wt with focus on steady caloric intake , intermittent fasting, phentermine. Assessment & Plan (05/10/2019 4:18 PM CAR UNLOADER HELPER): Diet and exercise were discussed. 1200 Calorie diet advised 45-60 min aerobic / resistance exercise most days of the week recommended. Start Phentermine Bariatric surgery medically indicated . Pt seems to agreed Referral sent to [facility] bariatric center. Assessment & Plan (10/21/2018 9:02 PM CDT): Importance of following diet and exercising discussed. Assessment & Plan (09/21/2017 2:12 PM CDT): Importance of following diet and exercising discussed.
--- OUTSIDE RECORDS SUMMARY | 2024-11-30 17:06 | XMS_ITS | CONTINUITY OF CARE DOCUMENT ---
Author Name aaron walker Address Unknown Organization [facility] Address [address] [place] [address] Phone [phone] Care Team Providers Care Keno Clerk Name Role Phone RADHA WANG MD Unavailable [phone] RADHA WANG MD Unavailable [phone] INSURANCE PROVIDERS Payer name Policy type / Coverage type [employer] party ID [id number] Other [id number]
--- OUTSIDE RECORDS SUMMARY | 2024-11-30 17:06 | XMS_ITS | Encounter Summary ---
Author Organization [facility] Address [address] [place] [address] Phone Care Team Providers Care Belt Fixer Name Role Phone Duran Montero MD Primary Care Provider [phone] Vu Condon DO Primary Care Provider [phone] Heidi Montes De Oca MD Unavailable Franklin Phelps MD PhD Unavailable [phone] Encounter Details Date Type Department Care Team (Late st Contact Info) Description 09/21/2024 Orders Only [facility] Scanning, Provider Social History Tobacco Use Types Packs/Day Years [...] on file Legal Sex Male 8:47 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 Author BH-Pain Behavioral Health Improving(04/2020 12:07 PM GRAPHICS PRODUCTION SPECIALIST) No Mariana Berg RN Note: Patient will establish a comfort-function goal and identify the pain level that will allow the patient to perform desired activities and achieve an acceptable quality of life. documented as of this encounter Procedures Procedure Name Priority Date/Time Associated Diagnosis Comments SCAN - LABS 09/21/2024 documented in this encounter Results * SCAN - LABS (09/21/2024) us Provider Scanning Final Result documented in this encounter Visit Diagnoses Not on filedocumented in this encounter Care Teams Belt Fixer Relationship Specialty Start Date End Date Duran Montero MD [address] [place] [address] PCP - General 09/24/16 10/03/24 Vu Condon DO [address] [place] [address] PCP - General Internal Medicine 10/04/24 Heidi Montes De Oca MD [address] [place] [address] Transplant Hepatology 10/09/24 11/26/24 Franklin Phelps MD PhD [address] [place] [address] Medical Oncologist/Gold Miner Medical Oncology 10/25/24 documented as of this encounter
--- OUTSIDE RECORDS SUMMARY | 2024-11-30 17:06 | XMS_ITS | Encounter Summary ---
Author Organization [facility] Address [address] [place] [address] Phone Care Team Providers Care Director Of Publications Name Role Phone Vu Condon DO Primary Care Provider [phone] Franklin Phelps MD PhD Unavailable Encounter Details Date Type Department Care Team (Late st Contact Info) Description 11/30/2024 Telephone [facility] On[facility] [address] [place] [address] Kaitlin Robles RN Social History Tobacco Use Types Packs/Day Years [...] on file Legal Sex Male 8:47 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 He is taking Colace and is requesting another suggestion. I called Rex back and he states he has a nurse advocate through his insurance company that he wasspeaking with several days ago and she told him to try taking Colace. Rex reports having to increase his Oxycodone dose to every 4 hours because the pain has worsened. He states the pain is under his ribcage on the right side of his abdomen. He denies any fevers, nausea or vomiting. I let Rex know that Colace is fine to take but it only softens the stool and does not stimulate the bowel to move. He needs a medication to get things moving and we recommend taking a daily dose of Miralax along with the colace if someone is on pain medications on a regular basis. I told him to start that regimen tomorrow once we get his bowels moving again. For today I instructed Rex to get a bottle of Magnesium Citrate and drink 1/2 of the bottle along with plenty of water. I explained most bowel medications require an adequate fluid intake to keep the bowel hydrated. I let him know if the Mag Citrate does not make anything happen in 3-4 hours he should take the other half of the bottle. I warned him that this medication can cause abdominal cramping as it stimulates the bowel to move. I told Rex bagley also drink prune juice or warm fluids like tea or coffee as these type of fluids can help as wel l. I asked him to update the office if these suggestions are not working, for any new issues or anyquestions. documented in this encounter Plan of Treatment Not on file documented as of this encounter Goals Goal Patient Goal Type Associated Problems Recent Progress Patient-Stated? Author BH-Pain Behavioral Health Improving(04/2020 12:07 PM CONSULTANT IN ERGONOMICS AND SAFETY) Mariana Camejo, MARTA Note: Patient will establish a comfort-function goal and identify the pain level that will allow the patient to perform desired activities and achieve an acceptable quality of life. documented as of this encounter Visit Diagnoses Not on filedocumented in this encounter Care Teams Director Of Publications Relationship Specialty Start Date End Date Vu Condon DO [address] [facility] [address] [place] [address] PCP - General Internal Medicine 10/04/24 Franklin Phelps MD PhD [address] [place] [address] Medical Oncologist/Scientist Medical Oncology 10/25/24 documented as of this encounter
--- OUTSIDE RECORDS SUMMARY | 2024-11-30 17:06 | XMS_ITS | Clinical Summary ---
Author Organization [facility] Address [address] [address] Care Team Providers Care Tack Picker Name Role Phone WinstonJarekDurankarlos Nicole DO Primary Care Provider [phone] Source Comments [facility],non-owned Affiliates and Associated Physician Practices is amultiple site organization consisting of ambulatory clinics and hospital sitesin [place], [place], [place] and [place]. This disclosure is being madepursuant to the Care Everywhere program and may not contain all information available regarding this patient. Last updated 18.[facility] Allergies Active Allergy Reactions Criticality Noted Date Comments Penicillins Rash High 07/11/2012 As child Medications * Be aware that medications may not be up to date on this document. Alwaysverify current medications with the patient. metFORMIN (GLUCOPHAGE) 1000 MG tablet Take 1,000 mg by mouth 2 times daily with morning and evening meal. Active GLIMEPIRIDE PO Take 10 mg by mouth 2 times daily. Active lisinopril (PRINIVIL; ZESTRIL) 10 MG tablet Take 10 mg by mouth 2 times daily. Active glucosamine 500 MG CAPS capsule Take 1 Cap by mouth once daily. Active Insulin Glargine (LANTUS SC)Indications :Morbid obesity (HCC) Inject 40 Units subcutaneously once daily. Active exenatide (BYETTA 10 MCG PEN) 10 MCG/0.04ML injectionIndic ations:Morbid obesity (HCC) 2 times daily. 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 Gender Identity Not on file Sexual Orientation [...] 6:22 PM CDT Height 175.3 cm (5' 9) 12/15/2016 6:22 PM CDT Body Mass Index [...] - 19+ 3-dose series) 1984 PNEUMOCOCCAL VACCINE 50+ (1 of 2 - PCV) 1984 ZOSTER VACCINE (1 of 2) 2015 COVID-19 [...] on patient's age to complete this topic Insurance [facility] CARE SELF PAY NO INSURANCE Member Subscriber Plan / Payer (Ef fective for All Dates) Name:Thien Hannon Member ID:Not on file Relation to Subscriber:Not on file Name:THIEN HANNON Subscriber ID:Not on file (Home) Address: [address] [place] [address] Payer ID:Not on file Group ID:Not on file Type:Self Pay Address: [facility] [place] [place] [facility] Care Teams Tack Picker Relationship Specialty Start Date End Date Duran Montero DO [address] [place] [address] PCP - General 07/14/12
--- OUTSIDE RECORDS SUMMARY | 2024-11-30 17:06 | XMS_ITS | Encounter Summary ---
Author Organization [facility] Address [address] [place] [address] Phone Care Team Providers Care Plant Nursery Worker Name Role Phone Vu Condon DO Primary Care Provider [phone] Heidi Montes De Oca MD Unavailable Franklin Phelps MD PhD Unavailable [phone] Encounter Details Date Type Department Care Team (Late st Contact Info) Description 10/07/2024 Results Follow-Up [facility] Gastroenterology [address] [place] [address] [place] [address] Heidi Montes De Oca MD [address] [place] [address] CT Body Outside Consult Social History Tobacco Use Types Packs/Day Years [...] on file Legal 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 Author BH-Pain Behavioral Health Improving(04/2020 12:07 PM WARE TESTER) No Mariana Berg, RN Note: Patient will establish a comfort-function goal and identify the pain level that will allow the patient to perform desired activities and achieve an acceptable quality of life. documented as of this encounter Visit Diagnoses Not on filedocumented in this encounter Care Teams Plant Nursery Worker Relationship Specialty Start Date End Date Vu Condon DO [address] [facility] [address] [place] [address] PCP - General Internal Medicine 10/04/24 Heidi Montes De Oca MD [address] [place] [address] Transplant Hepatology 10/09/24 11/26/24 Franklin Phelps MD PhD [address] [place] [address] Medical Oncologist/Rotating Field Assembler Medical Oncology 10/25/24 documented as of this encounter
[2024-11-30 17:07] VITALS: BP 128/71; PULSE 85; RESP 16; TEMP 36.4; O2SAT 100
--- NOTE | 2024-11-30 17:16 | ED.ABDPAIN ---
HPI - Abdominal Pain General Chief Complaint: Abdominal Pain <Prudence Booker APRN - Last Filed: 11/30/24 17:19> Stated Complaint: constipated, N/V <Prudence Booker APRN - Last Filed: 11/30/24 17:19> Time Seen by Provider: 11/30/24 17:10 <Prudence Booker APRN - Last Filed: 11/30/24 17:19> Focused HPI: Patient is a 59-year-old male who presents to the ER because he states I am impacted.He reports he was recently diagnosed with stage IV pancreatic and liver cancer. Patient reports he has been taking narcotic pain medication at home, but it has caused him to be constipated. He reports he has not had a bowel movement in 4 days. Patient took 2 bottles of Mag citrate earlier today. He reports he vomited after drinking half of one. Patient endorses nausea and vomiting for the past 3 days. GENERAL: Well-appearing, well-nourished, and in mild distress d/t discomfort. HEAD: Normocephalic, atraumatic. CHEST: Clear to auscultation. ?No respiratory distress. HEART: Regular rate and rhythm.? NEURO: ?Alert and oriented x3. ABD: + BS, no tenderness with light palpation Patient screened in triage and initial orders placed.? ?Additional care and disposition to be based upon?diagnostic testing and treatment. <Prudence Booker APRN - Last Filed: 11/30/24 17:19> History of Present Illness HPI narrative: Agree with the HPI above <Rene Singleton MD - Last Filed: 11/30/24 22:58> Related Data Home Medications: Home Medications ?Medication ?Instructions ?Recorded ?Confirmed ?Last Taken ?Type atorvastatin 20 mg tablet 20 mg PO DAILY 05/21/19 09/30/24 09/30/24 History metformin 1,000 mg tablet 1,000 mg PO BID 05/21/19 09/30/24 09/30/24 History glimepiride 2 mg tablet 2 mg PO DAILY 09/30/24 09/30/24 09/30/24 History insulin lispro 100 unit/mL 1 sliding scale dose subcut 09/30/24 09/30/24 09/30/24 History subcutaneous pen (Humalog KwikPen USEASDIRECTD (U-100) Insulin) latanoprost 0.005 % eye drops 1 drp EACH EYE QPM 09/30/24 09/30/24 09/29/24 History (Xalatan) timolol 0.25 % eye drops 1 drp EACH EYE Q12H 09/30/24 09/30/24 09/30/24 History <Prudence Booker APRN - Last Filed: 11/30/24 17:19> Allergies/Adverse Reactions: Allergies Allergy/AdvReac Type Severity Reaction Status Date / Time dapagliflozin (From [facility]) AdvReac Mild Rash Verified 10/02/24 16:15 Penicillins AdvReac Mild Rash Verified 10/02/24 16:15 <Prudence Booker APRN - Last Filed: 11/30/24 17:19> Review of Systems Review of Systems: As reviewed above in HPI <Rene Singleton MD - Last Filed: 11/30/24 22:58> FOR[facility]LY [facility] Past Medical History Medical History: Medical History Osteoarthritis Valerio esophagus Peptic ulcer Dyslipidemia Obstructive sleep apnea on CPAP Insulin dependent type 2 diabetes mellitus <Prudence Booker APRN - Last Filed: 11/30/24 17:19> Surgical History Surgical History: Surgical History History of arthroplasty of left shoulder History of total left hip arthroplasty History of repair of right rotator cuff <Prudence Booker APRN - Last Filed: 11/30/24 17:19> Family History Family History: Family History Father Family history of lung cancer Patient's father is Mother Cerebrovascular accident Patient's mother is Other Diabetes mellitus Family history of arthritis <Prudence Booker APRN - Last Filed: 11/30/24 17:19> Social History Social History: Social History Social History: Surrogate medical decision maker: Taisha Foster, spouse. Code status: Full code. Smoking status: Never smoker Second hand tobacco smoke exposure: No Alcohol intake: current Drinks per week: 1 Alcohol use details: on occasion Substance use: never Substance use type: does not use Do You Feel Safe in your Home?: Yes Lack of Transportation: No Lack of Food: Never True Current Housing: I Have Housing Concerned About Future Housing: No Difficulty Paying Gas/Electric Bills: No Difficulty Paying for Meds: No Currently Unemployed: No Education: Master's Degree or Higher Difficulty w/ Childcare or Family Care: No Living arrangements: with family Additional living arrangements comments: Lives with spouse in [place]. 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 Spiritual care concerns: No <Prudence Booker APRN - Last Filed: 11/30/24 17:19> Exam Narrative: GENERAL: [Well-appearing, well-nourished, and in no acute distress.] HEAD: [Normocephalic, atraumatic.] EYES: [PERRLA and EOMI.] ENT: Nares clear, no rhinorrhea or epistaxis. Mucous membranes moist. NECK: Supple. CHEST: [Clear to auscultation. No respiratory distress.] HEART: [Regular rate and rhythm]. No murmur heard. [Normal peripheral pulses.] ABDOMEN: Protuberant but soft abdomen, [nontender], [No rigidity or guarding] EXTREMITIES: Normal range of motion. [No edema.] SKIN: Warm, dry, no rash. NEURO: [No focal deficits]. Alert and oriented [x3.] PSYCH: [Normal mood and affect.] <Rene Singleton MD - Last Filed: 11/30/24 22:58> Course Vital Signs Vital signs: Vital Signs Temperature 36.4 C 11/30/24 17:07 Pulse Rate 85 11/30/24 17:07 Respiratory Rate 16 11/30/24 17:07 Blood Pressure 128/71 11/30/24 17:07 Pulse Oximetry 100 11/30/24 17:07 Temperature 36.4 C 11/30/24 17:07 Pulse Rate 85 11/30/24 17:07 Respiratory Rate 16 11/30/24 17:07 Blood Pressure 128/71 11/30/24 17:07 Pulse Oximetry 100 11/30/24 17:07 <Prudence Booker APRN - Last Filed: 11/30/24 17:19> Vital Signs Temperature 36.4 C 11/30/24 17:07 Pulse Rate 85 11/30/24 17:07 Respiratory Rate 16 11/30/24 17:07 Blood Pressure 128/71 11/30/24 17:07 Pulse Oximetry 100 11/30/24 17:07 Temperature 36.4 C 11/30/24 17:07 Pulse Rate 85 11/30/24 17:07 Respiratory Rate 16 11/30/24 17:07 Blood Pressure 128/71 11/30/24 17:07 Pulse Oximetry 100 11/30/24 17:07 <Rene Singleton MD - Last Filed: 11/30/24 22:58> MDM - Abdominal Pain MDM Narrative Medical decision making narrative: 59-year-old male with history of recently diagnosed pancreatic cancer stage IV with liver metastasis currently undergoing chemotherapy at [facility]. Patient presents to the ER as he was having some constipation, mild abdominal pain and nauseousness. He states he called his regular doctors and was instructed to take magnesium citrate which he took a whole bottle and waited several hours without any significant relief. He did have 1 episode of vomiting prior to arrival but no longer feeling nauseous. Here in the emergency department he had multiple bowel movements including solid stool and some liquid diarrhea. He states he feels significantly relieved but wants to make sure there is nothing else going on. He wants to make sure that he get fully cleaned out this did not reoccur. He has been taking narcotic medications for pain and this is likely causing a mild ileus but other considerations are full bowel obstruction given his history of pancreatic cancer with metastasis. No history of an abdominal surgeries cell less likely adhesions. Vital signs are normal examination is reassuring and he appears well without any significant tenderness and overall is soft but protuberant abdomen. Laboratory studies were obtained as well as an abdominal x-ray. He was given magnesium citrate and MiraLax. Enema was ordered after discussing with the patient options for constipation management. Patient's laboratory studies reassuring without any leukocytosis, anemia of 8.6 with no evidence of any bleeding and likely reactive to his cancer. Electrolytes unremarkable. Normal renal function panel. Normal glucose. Mildly elevated alk-phos but otherwise unremarkable LFTs. Urinalysis without any urine tract infection. X-rays shows no radiographic evidence of obstruction or ileus but there is some moderate volume of colonic feces consistent with patient's history. Patient had significant relief after the medications and enema here and had multiple bowel movements. No abdominal pain, no nausea and tolerating oral intake. Patient is safe for discharge home and will given MiraLax upon discharge and return precautions. He will follow up with regular doctors and oncologist. <Rene Singleton MD - Last Filed: 11/30/24 22:58> Medical Records Attestation: I reviewed the patient's medical records. <Rene Singleton MD - Last Filed: 11/30/24 22:58> Lab Data Attestation: I reviewed the patient's lab results. <Rene Singleton MD - Last Filed: 11/30/24 22:58> Result diagrams: 11/30/24 18:36 11/30/24 18:36 <Prudence Booker APRN - Last Filed: 11/30/24 17:19> Labs: Lab Results 11/30/24 11/30/24 Range/Units 18:36 18:39 WBC 5.4 (4.5-10.0) K/mm3 RBC 3.30 L (4.6-6.20) M/mm3 Hgb 8.6 L (14.0-18.0) g/dL Hct 28.3 L (42.0-52.0) % MCV 85.8 (80-100) fl MCH 26.1 (26-34) pg MCHC 30.4 L (32-36) g/dl RDW 17.7 H (11.5-14.5) % Plt Count 416 H D (150-375) k/mm3 MPV 8.7 (7.4-10.4) fl Immature Gran % (Auto) 0.6 H (0-0.5) % Neut % (Auto) 83.8 H (45.5-73.1) % Lymph % (Auto) 11.4 L (18.3-44.2) % [place] % (Auto) 2.2 L (2.6-8.5) % Eos % (Auto) 1.3 (0-4.4) % Baso % (Auto) 0.7 (0.2-1.2) % Lymph # (Auto) 0.61 L (0.9-3.2) K/mm3 [place] # (Auto) 0.1 (0.1-0.6) K/mm3 Eos # (Auto) 0.1 (0-0.3) K/mm3 Baso # (Auto) 0.0 (0.0-0.1) K/mm3 Abs Immat Gran (auto) 0.03 (0.00-0.031) K/mm3 Absolute Neuts (auto) 4.5 (1.3-6.7) K/mm3 Absolute Nucleated RBC 0.000 (0.0-0.012) K/mm3 Nucleated RBC % 0.0 (0.0-0.2) % Sodium 135 L (137-145) mmol/L Potassium 4.3 (3.4-5.0) mmol/L Chloride 99 (98-107) mmol/L Carbon Dioxide 30 (22-30) mmol/L Anion Gap 6 (4-12) mmol/L BUN 10 (9-20) mg/dL Creatinine 0.73 (0.7-1.3) mg/dL Estim Creat Clear Calc 118 ml/min Estimated GFR > 60 (59 - ) Glucose 151 H (65-110) mg/dL Calcium 9.3 (8.4-10.2) mg/dL Total Bilirubin 0.6 (0.2-1.3) mg/dL AST 57 (17-59) U/L ALT 40 (6-50) U/L Alkaline Phosphatase 220 H (38-126) U/L Total Protein 6.7 (6.3-8.2) g/dL Albumin 3.5 (3.5-5.1) g/dL Urine Color Yellow (Yellow) Urine Appearance Clear (Clear) Urine pH 8.5 (5.0-9.0) Ur Specific [place] 1.021 (1.001-1.035) Urine Protein 1+ H (Negative) mg/dL Urine Glucose (UA) Negative (Negative) mg/dL Urine Ketones Trace H (Negative) mg/dL Ur Blood (Man) Negative (Negative) Urine Nitrate Negative (Negative) Urine Bilirubin Negative (Negative) Urine Urobilinogen 1.0 (<2.0) mg/dL Leukocyte Esterase Rfl Negative (Negative) ZAKI/UL Urine RBC 0-2 (0-2) /hpf Urine WBC 0-5 (0-3) /hpf Ur Squamous Epith Cells None seen (Few) /hpf Urine Bacteria None seen /hpf Urine Casts 0-2 <Prudence Booker, EXTENSION SPECIALIST - Last Filed: 11/30/24 17:19> Lab Results 11/30/24 11/30/24 Range/Units 18:36 18:39 WBC 5.4 (4.5-10.0) K/mm3 RBC 3.30 L (4.6-6.20) M/mm3 Hgb 8.6 L (14.0-18.0) g/dL Hct 28.3 L (42.0-52.0) % MCV 85.8 (80-100) fl MCH 26.1 (26-34) pg MCHC 30.4 L (32-36) g/dl RDW 17.7 H (11.5-14.5) % Plt Count 416 H D (150-375) k/mm3 MPV 8.7 (7.4-10.4) fl Immature Gran % (Auto) 0.6 H (0-0.5) % Neut % (Auto) 83.8 H (45.5-73.1) % Lymph % (Auto) 11.4 L (18.3-44.2) % [place] % (Auto) 2.2 L (2.6-8.5) % Eos % (Auto) 1.3 (0-4.4) % Baso % (Auto) 0.7 (0.2-1.2) % Lymph # (Auto) 0.61 L (0.9-3.2) K/mm3 [place] # (Auto) 0.1 (0.1-0.6) K/mm3 Eos # (Auto) 0.1 (0-0.3) K/mm3 Baso # (Auto) 0.0 (0.0-0.1) K/mm3 Abs Immat Gran (auto) 0.03 (0.00-0.031) K/mm3 Absolute Neuts (auto) 4.5 (1.3-6.7) K/mm3 Absolute Nucleated RBC 0.000 (0.0-0.012) K/mm3 Nucleated RBC % 0.0 (0.0-0.2) % Sodium 135 L (137-145) mmol/L Potassium 4.3 (3.4-5.0) mmol/L Chloride 99 (98-107) mmol/L Carbon Dioxide 30 (22-30) mmol/L Anion Gap 6 (4-12) mmol/L BUN 10 (9-20) mg/dL Creatinine 0.73 (0.7-1.3) mg/dL Estim Creat Clear Calc 118 ml/min Estimated GFR > 60 (59 - ) Glucose 151 H (65-110) mg/dL Calcium 9.3 (8.4-10.2) mg/dL Total Bilirubin 0.6 (0.2-1.3) mg/dL AST 57 (17-59) U/L ALT 40 (6-50) U/L Alkaline Phosphatase 220 H (38-126) U/L Total Protein 6.7 (6.3-8.2) g/dL Albumin 3.5 (3.5-5.1) g/dL Urine Color Yellow (Yellow) Urine Appearance Clear (Clear) Urine pH 8.5 (5.0-9.0) Ur Specific [place] 1.021 (1.001-1.035) Urine Protein 1+ H (Negative) mg/dL Urine Glucose (UA) Negative (Negative) mg/dL Urine Ketones Trace H (Negative) mg/dL Ur Blood (Man) Negative (Negative) Urine Nitrate Negative (Negative) Urine Bilirubin Negative (Negative) Urine Urobilinogen 1.0 (<2.0) mg/dL Leukocyte Esterase Rfl Negative (Negative) ZAKI/UL Urine RBC 0-2 (0-2) /hpf Urine WBC 0-5 (0-3) /hpf Ur Squamous Epith Cells None seen (Few) /hpf Urine Bacteria None seen /hpf Urine Casts 0-2 <Rene Singleton MD - Last Filed: 11/30/24 22:58> Imaging Data Attestation: I personally reviewed and interpreted this imaging study as follows: <Rene Singleton MD - Last Filed: 11/30/24 22:58> My impression: Impressions Abdomen X-Ray 11/30/24 17:29 IMPRESSION: No radiographic evidence of obstruction or ileus. Moderate volume of colonic feces. Diffuse osseous sclerosis may be secondary to osseous metastases in the appropriate clinical context. <Rene Singleton MD - Last Filed: 11/30/24 22:58> Radiologist's impression: ITS Impressions Abdomen X-Ray 11/30/24 17:29 IMPRESSION: No radiographic evidence of obstruction or ileus. Moderate volume of colonic feces. Diffuse osseous sclerosis may be secondary to osseous metastases in the appropriate clinical context. <Prudence Booker APRN - Last Filed: 11/30/24 17:19> ITS Impressions Abdomen X-Ray 11/30/24 17:29 IMPRESSION: No radiographic evidence of obstruction or ileus. Moderate volume of colonic feces. Diffuse osseous sclerosis may be secondary to osseous metastases in the appropriate clinical context. <Rene Singleton MD - Last Filed: 11/30/24 22:58> Discharge Plan Discharge Clinical Impression: Constipation, History of pancreatic cancer <Prudence Booker APRN - Last Filed: 11/30/24 17:19> Patient Disposition: Home <Prudence Booker APRN - Last Filed: 11/30/24 17:19> Condition: Stable <Prudence Booker APRN - Last Filed: 11/30/24 17:19> Instructions: Antibiotic Form, Constipation (DC) <Prudence Booker APRN - Last Filed: 11/30/24 17:19> Additional Instructions: Your laboratory studies and imaging are reassuring. No concerns presently for a bowel obstruction. We will send you home with MiraLax. If you have any recurrence for constipation, worsening abdominal distention or pain, unable to tolerate oral intake, any other concerns return to the ER otherwise follow-up with regular doctors and care providers. <Prudence Booker APRN - Last Filed: 11/30/24 17:19> Patient Language: Italian <Prudence Booker APRN - Last Filed: 11/30/24 17:19> Prescriptions: New polyethylene glycol 3350 [Miralax] 17 gram/dose powder 17 g PO BID Qty: 238 0RF No Action metformin 1,000 mg tablet 1,000 mg PO BID atorvastatin 20 mg tablet 20 mg PO DAILY insulin lispro [Humalog KwikPen Insulin] 100 unit/mL insulin pen 1 sliding scale dose subcut USEASDIRECTD glimepiride 2 mg tablet 2 mg PO DAILY timolol 0.25 % drops 1 drp EACH EYE Q12H latanoprost [Xalatan] 0.005 % drops 1 drp EACH EYE QPM pantoprazole 40 mg Tablet,Delayed Release (Dr/Ec) 40 mg PO Q12HR Qty: 60 0RF insulin glargine-yfgn [Semglee(insulin glarg-yfgn)Pen] 100 unit/mL (3 mL) insulin pen 80 unit subcut DAILY Qty: 75 1RF valsartan-hydrochlorothiazide [Diovan HCT] 160-25 mg tablet 1 tablet PO DAILY Qty: 90 2RF oxycodone-acetaminophen 10-325 mg tablet 1 tablet PO Q4H PRN (Reason: Pain Rated 7-10) Qty: 30 0RF <Prudence Booker APRN - Last Filed: 11/30/24 17:19> Follow-up/Referrals: Vu Condon, [Primary Care Provider] - <Prudence Booker APRN - Last Filed: 11/30/24 17:19> Time of Disposition: 22:58 <Prudence Booker APRN - Last Filed: 11/30/24 17:19> 22:58 <Rene Singleton MD - Last Filed: 11/30/24 22:58>
[2024-11-30 18:51] LABS: Basophils Percent Auto 0.7 % (0.2-1.2); Eosinophils Absolute Auto 0.1 K/mm3 (0-0.3); Eosinophils Percent Auto 1.3 % (0-4.4); Hematocrit 28.3 % (42.0-52.0); Hemoglobin 8.6 g/dL (14.0-18.0); Immature Granulocyte Absolute 0.03 K/mm3 (0.00-0.031); Immature Granulocyte Percent A 0.6 % (0-0.5); Lymphocytes Absolute Auto 0.61 K/mm3 (0.9-3.2); Lymphocytes Percent Auto 11.4 % (18.3-44.2); Mean Corpuscular HGB Conc 30.4 g/dl (32-36); Mean Corpuscular Hemoglobin 26.1 pg (26-34); Mean Corpuscular Volume 85.8 fl (80-100); Mean Platelet Volume 8.7 fl (7.4-10.4); Monocytes Absolute Auto 0.1 K/mm3 (0.1-0.6); Monocytes Percent Auto 2.2 % (2.6-8.5); Neutrophils Absolute Auto 4.5 K/mm3 (1.3-6.7); Neutrophils Percent Auto 83.8 % (45.5-73.1); Platelet Count Result 416 k/mm3 (150-375); Red Cell Distribution Width 17.7 % (11.5-14.5); White Blood Count 5.4 K/mm3 (4.5-10.0)
[2024-11-30 18:59] LABS: Alanine Aminotransferase 40 U/L (6-50); Albumin Level 3.5 g/dL (3.5-5.1); Alkaline Phosphatase 220 U/L (38-126); Anion Gap 6 mmol/L (4-12); Aspartate Amino Transferase 57 U/L (17-59); Bilirubin,Total 0.6 mg/dL (0.2-1.3); Blood Urea Nitrogen 10 mg/dL (9-20); Calcium 9.3 mg/dL (8.4-10.2); Carbon Dioxide 30 mmol/L (22-30); Chloride 99 mmol/L (98-107); Estimated CRCL calculation 118 ml/min; Estimated Glomerular Filt Rate > 60; Glucose 151 mg/dL (65-110); Potassium 4.3 mmol/L (3.4-5.0); Sodium 135 mmol/L (137-145); Total Protein 6.7 g/dL (6.3-8.2)
[2024-11-30 19:16] LABS: Add Urine Microscopic? YES; Appearance Urine Clear (Clear); Bacteria Urine None Seen /hpf; Bilirubin Urine Negative (Negative); Blood Urine Negative (Negative); Color Urine Yellow (Yellow); Glucose Urine UA Negative (Negative); Ketones Urine Trace mg/dL (Negative); Leukocyte Esterase Ur Negative LEU/UL (Negative); Nitrate Urine Negative (Negative); Non Pathogenic Casts 0-2; Protein Urine 1+ mg/dL (Negative); RBC Urine 0-2 /hpf (0-2); Specific Grav Ur 1.021 (1.001-1.035); Squamous Epithelial Cell Urine None Seen /hpf (Few); WBC Urine 0-5 /hpf (0-3); pH Urine 8.5 (5.0-9.0)
--- OUTSIDE RECORDS SUMMARY | 2024-11-30 21:32 | XMS_ITS | Clinical Summary ---
Author Organization [facility] Address [address] [place] [address] Care Team Providers Care Pastry Wrapper Name Role Phone Vu Condon Primary Care Provider [phone] Franklin Phelps MD PhD Unavailable [phone] Allergies Active Allergy Reactions Criticality Noted Date [...] hyperglycemia, with long-term current use of insulin ([facility]) Inject 1 each under the skin 4 [...] hyperglycemia, with long-term current use of insulin ([facility]) TAKE 1 TABLET DAILY BEFORE BREAKFAST 90 [...] and cover with plastic wrap or a esaba-q-zmvf. 30 g 6 025 Active metFORMIN XR (GLUCOPHAGE XR) 500 mg 24 hr tabletIndications :Type 2 diabetes mellitus with hyperglycemia, with long-term current use of insulin ([facility]) TAKE 2 TABLETS TWICE A DAY 360 tablet 3 025 Active SEMGLEE-yfgn 100 unit/mL (3 mL) pen for injectionIndicati ons:Type 2 diabetes mellitus with hyperglycemia, with long-term current use of insulin ([facility]) INJECT 80 UNITS UNDER THE SKIN DAILY, 75 mL 3 Active FreeStyle Treasure 2 Plus Sensor deviceIndications :Type 2 diabetes mellitus with hyperglycemia, with long-term current use of insulin ([facility]) Change sensor every 15 days 6 each 1 Active insulin glargine (LANTUS) 100 unit/mL (3 mL) pen for injectionIndicati ons:Type 2 diabetes mellitus with hyperglycemia, with long-term current use of insulin ([facility]) Inject 80 Units under the skin nightly [...] polyneuropathy associated with type 2 diabetes mellitus ([facility]) TAKE 1 CAPSULE NIGHTLY 90 capsule 3 [...] Phentermine Assessment & Plan (05/06/2023 9:22 AM INTERNET MARKETING STRATEGIST): Start phentermine Diet and exercise Assessment & Plan (09/16/2022 11:32 AM CDT): Chronic problem. Discussed healthy diet and importance of regular physical activity (20- 30min/day, 150min/wk). SRI on CPAP 05/07/2021 Primary osteoarthritis of left shoulder 04/14/20 21 Overview (04/14/2021): Added automatically from request for surgery [id number] Diabetic polyneuropathy asso ciated with type 2 [...] Atovastatin 20mg. Last lipid panel: 01/13/23 LDL=93, WH=307. No changes at this time. Will update lipid panel today. Verified that he uses [employer]. Aware to check results/results letter in [employer]. Will contact by phone if needed. Assessment & Plan (01/13/2023 10:12 AM CDT): Chronic problem, controlled on current Atovastatin 20mg. Last lipid panel: 01/13/22 LDL=80, TG=95. No changes at this time. Will update lipid panel today. Verified that he uses mychart. Aware to check results/results letter in [employer]. Will contact by phone if needed. Assessment & Plan (09/16/2022 11:34 AM CDT): Chronic problem, controlled on current Atovastatin 20mg. Last lipid panel: 01/13/22 LDL=80, TG=95. No changes at this time. Assessment & Plan (05/13/2022 10:18 AM INTERNET MARKETING STRATEGIST): Chronic problem. On statin therapy, no changes. Assessment & Plan (01/13/2022 9:39 AM CDT): Chronic, well controlled Low fat Low cholesterol diet Exercise Continue statin therapy Check lipid profile Assessment & Plan (08/17/2021 4:39 PM INTERNET MARKETING STRATEGIST): Chronic, well controlled Continue current meds Assessment & Plan (12/21/2019 10:56 AM CDT): At goal on current medications. Continue statin therapy. Assessment & Plan (09/13/2019 2:22 PM CDT): At goal on current medications. Continue statin therapy. Assessment & Plan (05/10/2019 4:20 PM INTERNET MARKETING STRATEGIST): Goal of treatment , LDL cholesterol less [...] panel Assessment & Plan (06/06/2018 2:28 PM INTERNET MARKETING STRATEGIST): Goal of treatment , LDL cholesterol less [...] time. Assessment & Plan (05/13/2022 10:18 AM INTERNET MARKETING STRATEGIST): Controlled on current medications, no changes. Assessment & Plan (01/13/2022 9:40 AM CDT): Chronic, well controlled Continue current meds Check MA Assessment & Plan (12/21/2019 10:55 AM CDT): Controlled on current medications. Continue plan. Assessment & Plan (09/13/2019 2:22 PM CDT): Controlled on current medications. Continue plan. Assessment & Plan (05/10/2019 4:19 PM INTERNET MARKETING STRATEGIST): Goal blood pressure is less than 140/85 Low salt diet recommended Daily aerobic exercise Continue current meds, including NICHOLE-I or ARB Check microalbumin Assessment & Plan (02/06/2019 3:15 PM CDT): Controlled on current medications. Assessment & Plan (10/21/2018 9:02 PM CDT): At goal on current medications. Assessment & Plan (06/06/2018 2:28 PM INTERNET MARKETING STRATEGIST): Goal blood pressure is less than 140/85 Low salt diet recommended Daily aerobic exercise Continue current meds, including NICHOLE-I or ARB Assessment & Plan (12/22/2017 10:39 AM CDT): Controlled on current medications. Assessment & Plan (09/21/2017 2:12 PM CDT): Controlled on current medications. Assessment & Plan (06/21/2017 11:48 AM INTERNET MARKETING STRATEGIST): Goal blood pressure is less than 140/85 Low salt diet recommended Daily aerobic exercise Continue current meds, including NICHOLE-I or ARB Nontoxic uninodular goiter 11/10/2013 Overview (09/29/2016): NONTOX UNINODULAR GOITER Assessment & Plan (09/02/2020 4:22 PM INTERNET MARKETING STRATEGIST): Thyroid ultrasound performed today Right lower thyroid [...] update labs today. Verified that he uses [employer]. Aware to check results/results letter in [employer]. Will contact by phone if needed. UTD [...] Humalog Assessment & Plan (05/06/2023 9:22 AM INTERNET MARKETING STRATEGIST): Hba1c was Lab Results Component Value Date [...] update labs today. Verified that he uses [employer]. Aware to check results/results letter in [employer]. Will contact by phone if needed. DM [...] sugars. Assessment & Plan (05/13/2022 10:20 AM INTERNET MARKETING STRATEGIST): Chronic problem, stable per Treasure download. We [...] hypoglycemia Assessment & Plan (08/17/2021 4:38 PM INTERNET MARKETING STRATEGIST): Hba1c was Lab Results Component Value Date [...] Metformin Assessment & Plan (09/02/2020 4:21 PM INTERNET MARKETING STRATEGIST): Hba1c was Lab Results Component Value Date [...] exam. Assessment & Plan (05/10/2019 4:19 PM INTERNET MARKETING STRATEGIST): Hba1c was Lab Results Component Value Date [...] exercise. Assessment & Plan (06/06/2018 2:39 PM INTERNET MARKETING STRATEGIST): Hba1c was Lab Results Component Value Date [...] accountability. Assessment & Plan (06/21/2017 2:06 PM INTERNET MARKETING STRATEGIST): Your Hba1c today was: 9.7 meaning a [...] 01/13/2022 09/16/2022 Body mass index 40.0-44.9, adult ([facility]) 01/13/2022 09/16/2022 Hyperlipidemia 09/21/2017 09/16/2022 Assessment & Plan (12/22/2017 10:39 AM CDT): LDL at goal on current dose of statin Assessment & Plan (09/21/2017 2:11 PM CDT): Continue statin therapy BMI 40.0-44.9, adult 06/21/2017 023 Assessment & Plan (09/02/2020 4:22 PM INTERNET MARKETING STRATEGIST): Patient refusing the consideration for bariatric surgery Phentermine was started because elevated blood pressure Will try Wellbutrin Assessment & Plan (09/13/2019 2:22 PM CDT): Importance of following diet and exercising discussed. Assessment & Plan (02/06/2019 3:14 PM CDT): Recommend he try keto diet again Assessment & Plan (12/22/2017 10:39 AM CDT): Ketogenic diet reviewed Morbid obesity ([facility]) 06/21/2017 Assessment & Plan (04/06/2021 1:02 PM CDT): Worsening Low calorie diet discussed Start phentermine Assessment & Plan (12/21/2019 10:57 AM CDT): Continues to lose wt with focus on steady caloric intake , intermittent fasting, phentermine. Assessment & Plan (05/10/2019 4:18 PM INTERNET MARKETING STRATEGIST): Diet and exercise were discussed. 1200 Calorie diet advised 45-60 min aerobic / resistance exercise most days of the week recommended. Start Phentermine Bariatric surgery medically indicated . Pt seems to agreed Referral sent to [facility] bariatric center. Assessment & Plan (10/21/2018 9:02 PM CDT): Importance of following diet and exercising discussed. Assessment & Plan (09/21/2017 2:12 PM CDT): Importance of following diet and exercising discussed. Encounters Date Type Department Care Team Description 11/30/2024 Telephone [facility] [address] [place] [address] Floor 5 [place] [address] Kaitlin Robles RN 11/26/2024 2:00 PM CDT Infusion [facility] - Infusion [address] [place] [address] Floor 5 [place] [address] Malignant neoplasm metastatic to liver (HCC) (Primary Dx); Malignant neoplasm of head of pancreas (HCC) 11/26/2024 12:45 PM CDT Office Visit [facility] [address] [place] [address] Floor 5 [place] [address] Barbara Weinberg PA Malignant neoplasm metastatic to liver (HCC) (Primary Dx); Malignant neoplasm of head of pancreas (HCC) 11/26/2024 11:45 AM CDT Clinical Support [facility] - Lab Collection [facility] Floor 5 [place] [address] Malignant neoplasm of head of pancreas (HCC); Malignant neoplasm metastatic to liver (HCC) 11/14/2024 Telephone [facility] [address] [place] [address] Floor 8 [place] [address] Kaitlin Robles RN 11/14/2024 Documentation [facility] [address] [place] [address] Vianney Rees CMA 11/12/2024 12:30 PM CDT Infusion [facility] - Infusion [address] [place] [address] Floor 6 [place] [address] Malignant neoplasm metastatic to liver (HCC) (Primary Dx); Malignant neoplasm of head of pancreas (HCC) 11/12/2024 11:30 AM CDT Office Visit [facility] Floor [address] [place] [address] Franklin Phelps MD PhD Malignant neoplasm metastatic to liver (HCC) (Primary Dx); Malignant neoplasm of head of pancreas (HCC); Type 2 diabetes mellitus with hyperglycemia, with long-term current use of insulin (HCC) 11/12/2024 10:30 AM CDT Clinical Support [facility] [place] - Lab Collection [facility] [place] Floor [address] [place] [address] Malignant neoplasm of head of pancreas (HCC); Malignant neoplasm metastatic to liver (HCC) 11/05/2024 3:00 PM CDT Infusion [facility] - Infusion [address] [place], [place] [address] Floor [address] [place] [address] Malignant neoplasm metastatic to liver (HCC) (Primary Dx); Malignant neoplasm of head of pancreas (HCC) 11/05/2024 2:00 PM CDT Clinical Support [facility] - Lab Collection [facility] Floor [address] [place] [address] Malignant neoplasm of head of pancreas (HCC); Malignant neoplasm metastatic to liver (HCC) 11/05/2024 Orders Only [facility] [address] [place] [address] [address] [place] [address] Franklin Phelps MD PhD 11/03/2024 Orders Only [facility] [address] [place] [address] Floor 8 [place] [address] Franklin Phelps MD PhD 10/30/2024 Orders Only [facility] [address] [place] [address] Floor 5 [place] [address] Franklin Phelps MD PhD 10/30/2024 Telephone [facility] [address] [place] [address] Floor [address] [place] [address] Kaitlin Robles RN 10/29/2024 10:00 AM CDT Infusion [facility] - Infusion [facility] [place] Floor [address] [place] [address] Malignant neoplasm of head of pancreas (HCC) (Primary Dx); Duodenal adenocarcinoma (HCC); Malignant neoplasm metastatic to liver (HCC) 10/29/2024 9:00 AM CDT Office Visit [facility] Floor [address] [place] [address] Franklin Phelps MD PhD Malignant neoplasm of head of pancreas (HCC) (Primary Dx); Duodenal adenocarcinoma (HCC); Malignant neoplasm metastatic to liver (HCC) 10/29/2024 8:30 AM CDT Clinical Support [facility] - Lab Collection [address] [facility] [place] Floor 5 [place] [address] Duodenal adenocarcinoma (HCC); Malignant neoplasm metastatic to liver (HCC) 10/29/2024 8:00 AM CDT Clinical Support [facility] Lab [facility] Floor [address] [place] [address] Duodenal adenocarcinoma (HCC); Malignant neoplasm metastatic to liver (HCC); Malignant neoplasm of head of pancreas (HCC) 10/24/2024 Orders Only [facility] Scanning, Provider 10/23/2024 3:11 PM CDT - 10/23/2024 11:59 PM CDT Hospital Encounter [facility] - [place] [address] [facility] [place] Floor 8 [place] [address] Duodenal adenocarcinoma (HCC); Metastatic malignant neoplasm, unspecified site (HCC) Discharge Disposition: Discharge to home or self care 10/23/2024 3:11 PM CDT - 10/23/2024 11:59 PM CDT Hospital Encounter [facility] [place] [address] [facility] [place] Floor 8 [place] [address] Duodenal adenocarcinoma (HCC); Metastatic malignant neoplasm, unspecified site (HCC) Discharge Disposition: Discharge to home or self care 10/23/2024 12:42 PM CDT - 10/23/2024 11:59 PM CDT Hospital Encounter [facility] Radiology [facility] [address] [place] [address] Duodenal adenocarcinoma (HCC); Metastatic malignant neoplasm, unspecified site (HCC) Discharge Disposition: Discharge to home or self care 10/18/2024 8:30 AM CDT - 10/18/2024 9:[address] [facility] [address] [facility] [address] [place] [address] Arabella Painting MD [facility] ENDOSCOPY 10/18/2024 8:14 AM CDT Anesthesia Event [facility] [place] [address] [facility] [address] [place] [address] Marcial Michel MD 10/18/2024 7:02 AM CDT - 10/18/2024 11:33 AM CDT Hospital Encounter [facility] [place] [address] [address] Heidi Montes De Oca MD Early, Dayna S., MD Discharge Disposition: Discharge to home or self care 10/18/2024 Telephone [facility] Radiology [address] [place] [address] Erin Sanderson, MARTA 10/17/2024 Documentation [facility] [address] [place] [address] Medicine [facility] [place] [address] [place] [address] Neetu Tucker RN 10/17/2024 Telephone [facility] [address] [place] [address] Medicine [facility] [place] [address] [place] [address] Shari Roche 10/16/2024 Orders Only [facility] Scanning, Provider 10/16/2024 Telephone [facility] [address] [place] [address] [place] [address] [place] [address] Lakesha Adam 10/15/2024 4:30 PM CDT Lab [facility] - Lab Collection [address] [facility] Floor 5 [place] [address] Duodenal adenocarcinoma (HCC); Metastatic malignant neoplasm, unspecified site (HCC) 10/15/2024 3:30 PM CDT Office Visit [facility] [address] [facility] Floor 5 [place] [address] Franklin Phelps MD PhD Duodenal adenocarcinoma (HCC) (Primary Dx); Metastatic malignant neoplasm, unspecified site (HCC); Malignant neoplasm metastatic to liver (HCC) 10/15/2024 Orders Only [facility] [address] [facility] Floor [address] [place] [address] Franklin Phelps MD PhD Malignant neoplasm metastatic to liver (HCC) (Primary Dx); Duodenal adenocarcinoma (HCC) 10/11/2024 Orders Only [facility] [address] [place] [address] Heidi Montes De Oca MD Metastatic malignant neoplasm, unspecified site (HCC) 10/09/2024 Telephone [facility] [address] [place] [address] Advanced Medicine [facility] [place] [address] [place] [address] Shari Roche GI Assessment pre procedure call 10/09/2024 Orders Only [facility] [address] [place] [address] [place] [address] [place] [address] Neetu Tucker RN Metastatic malignant neoplasm, unspecified site (HCC) (Primary Dx) 10/09/2024 Documentation [facility] [address] [place] [address] [place] [address] [place] [address] Heidi Montes De Oca MD 10/08/2024 Orders Only [facility] Scanning, Provider 10/07/2024 Results Follow-Up [facility] [address] [place] [address] [place] [address] [place] [address] Heidi Montes De Oca MD CT Body Outside Consult 10/04/2024 5:40 PM CDT - 10/04/2024 11:59 PM CDT Hospital Encounter [facility] [address] [place] [address] Diagnosis unknown Discharge Disposition: Discharge to home or self care 10/04/2024 Telephone [facility] [address] [place] [address] [place] [address] [place] [address] Neetu Tucker RN 09/30/2024 Telephone [facility] [address] [place] [address] [address] [place] [address] Heidi Montes De Oca MD 09/21/2024 Orders [...] Oc duron Lung cancer Father Oc duron Stroke Mother Nga duron Diabetes Other [...] on file Legal Sex Male 8:47 PM INTERNET MARKETING STRATEGIST Gender Identity Male 12/29/2020 10:31 AM CDT [...] Author [facility](04/2020 12:07 PM INTERNET MARKETING STRATEGIST) Mariana Camejo, RN Note: Patient will establish a comfort-function goal and identify the pain level that will allow the patient to perform desired activities and achieve an acceptable quality of life. Medical Devices Implanted Type Area Track Laying Machine Operator Device Identifier Shelf Expiration Date Model / Serial / Lot [employer] 6191-1-010 Simplex P Radiopaque Full Dose Cement Bone Sterile - Sna - [id number] Implanted:Qty: 1 on 05/13/2021 by Harinder Orosco MD at [facility] Bone Cement Left: Shoulder [employer] 05/26/2023 6191-1-0 10 / NA / [id number] [employer] [id number] Aequalis Perform Cortiloc 60mm Peg Shoulder Large Component Latex Free - [id number] - [id number] Implanted:Qty: 1 on 05/13/2021 by Harinder Orosco MD at [facility] Other - see comments Left: Shoulder [employer] [id number] 08/13/2025 [id number] / [id number] / [employer] [id number] Head Perform Cocr Modular Humeral - [id number] - [id number] Implanted:Qty: 1 on 05/13/2021 by Harinder Orosco MD at [facility] Other - see comments Left: Shoulder [employer] [id number] 11/14/2025 [id number] / [id number] / [employer] [id number] Rib Bender Perform Centered Modular Humeral Head Ti - Sna - [id number] Implanted:Qty: 1 on 05/13/2021 by Harinder Orosco MD at [facility] Other - see comments Left: Shoulder [employer] [id number] 04/08/2026 [id number] / NA / [employer] [id number] Stem Perform Sz 3 Humeral - [id number] - [id number] Implanted:Qty: 1 on 05/13/2021 by Harinder Orosco MD at [facility] Other - see comments Left: [facility] [employer] [id number] 09/18/2025 [id number] / [id number] / [employer] Xcela Power Port 8fr [id number] - [id number] Implanted:Qty: 1 on 10/23/2024 at [facility] Other - see comments [employer] 05/07/2029 [id number] / / [id number] Lt Thr Hip Explanted Type Area Track Laying Machine Operator Device Identifier Shelf Expiration Date Model / Serial / Lot [employer] [id number] Guide Pin Perform 3.0 X 100mm - Sna - [id number] Explanted:Qty : 1 on 05/13/2021 by Harinder Orosco MD at [facility] Other - see comments Left: [facility] [employer] [id number] / NA / Description:For fixation pur poses [...] (HCC) Metastatic malignant neoplasm, unspecified site (HCC) ND AN PROCEDURE PLACEHOLDER Routine 10/18/2024 8:28 AM CDT ND AN ELECTIVE ENDOTRACHEAL AIRWAY Routine 10/18/2024 8:28 [...] PhD LAB BLOOD ORDERABLES Fin al Result [facility] Department [place] [address] * (ABNORMAL) Differential, auto (11/26/2024 11:52 AM CDT) Neutrophil abs 6.05 1.50 - 6.50 K/cumm Comment:Testing performed by : [facility], [address] [place] [address] Lymphocyte abs 0.69(L) 0.80 - 3.30 K/cumm [facility] Comment:Testing performed by : [facility], [address] [place] [address] Monocyte abs 1.11(H) 0.20 - 0.80 K/cumm [facility] Comment:Testing performed by : [facility], [address] [place], [place] [id number] Eosinophil abs 0.08 0.00 - 0.50 K/cumm [facility] Comment:Testing performed by : [facility], [address] [place] [address] Basophil abs 0.04 0.00 - 0.10 K/cumm [facility] Comment:Testing performed by : [facility], [address] [place] [address] Neutrophil pct 76.0 % [facility] Comment: Interpretive Data Percent cell count reference ranges are not reported, since discordance with absolute values may lead to misinterpretation of CBC data. Current Interpretive Data was last revised on 2017. Testing performed by: [facility], [address] [place] [address] Lymphocyte pct 8.6 % [facility] Comment: Interpretive Data Percent cell count reference ranges are not reported, since discordance with absolute values may lead to misinterpretation of CBC data. Current Interpretive Data was last revised on 2017. Testing performed by: [facility], [address] [place] [address] Monocyte pct 13.9 % [facility] Comment: Interpretive Data Percent cell count reference ranges are not reported, since discordance with absolute values may lead to misinterpretation of CBC data. Current Interpretive Data was last revised on 2017. Testing performed by: [facility], [address] [place] [phone] Eosinophil pct 1.0 % JOB [facility] Comment: Interpretive Data Percent cell count reference ranges are not reported, since discordance with absolute values may lead to misinterpretation of CBC data. Current Interpretive Data was last revised on 2017. Testing performed by: [facility], [address] [place] [phone] Basophil pct 0.6 % JOB MCCOLLUM Comment: Interpretive Data Percent cell count reference ranges are not reported, since discordance with absolute values may lead to misinterpretation of CBC data. Current Interpretive Data was last revised on 2017. Testing performed by: [facility], [address] [place] [address] Blood 11/26/2024 11:5 2 AM CDT 11/26/2024 11:57 AM CDT us Franklin Phelps MD PhD LAB BLOOD ORDERABLES Fin al Result [facility] Department of Laboratories [place] [id number] * (ABNORMAL) CBC with auto differential (11/26/2024 11:52 AM CDT) WBC 7.97 3.80 - 9.90 K/cumm Comment:Testing performed by : [facility], [address] [place] [address] Hgb 9.2(L) 13.0 - 17.5 g/dL JOB MCCOLLUM Comment:Testing performed by : [facility], [address] [place] [address] Hct 28.1(L) 38.9 - 50.3 % JOB MCCOLLUM Comment:Testing performed by : [facility], [address] [place] [address] Plt 388 150 - 400 K/cumm JOB MCCOLLUM Comment:Testing performed by : [facility], [address] [place] [address] MPV 6.6(L) 6.8 - 10.4 fL JOB MCCOLLUM Comment:Testing performed by : [facility], [address] [place] [address] RBC 3.45(L) 4.30 - 5.80 M/cumm JOB MCCOLLUM Comment:Testing performed by : [facility], [address] [place], [place] [phone] MCV 81.4 81.3 - 96.4 fL JOB MCCOLLUM Comment:Testing performed by : [facility], [address] [place] [address] MCH 26.6(L) 27.1 - 33.[address] [facility] Comment:Testing performed by : [facility], [address] [place] [address] MCHC 32.7 32.3 - 35.7 g/dL JOB [facility] Comment:Testing performed by : [facility], [address] [place] [address] RDW CV 19.8(H) 11.1 - 14.9 % JOB [facility] Comment:Testing performed by : [facility], [address] [place] [address] NRBC abs 0.00 0.00 - 0.01 K/cumm JOB [facility] Comment:Testing performed by : [facility], [address] [place] [address] Blood 11/26/2024 11:5 2 AM CDT 11/26/2024 11:57 AM CDT us Franklni Phelps MD PhD LAB BLOOD ORDERABLES Fin al Result JOB MCCOLLUM [facility] [place] [address] * Cancer antigen 19-9 (11/26/2024 11:52 AM [...] PhD LAB BLOOD ORDERABLES Fin al Result [facility] [place] [address] * (ABNORMAL) Comprehensive metabolic panel (11/26/2024 11:52 AM CDT) Sodium 134(L) 135 - 145 mmol/L Potassium, pl 3.9 3.3 - 4.9 mmol/L [facility] Chloride 99 97 - 110 mmol/L [facility] CO2 25 22 - 32 mmol/L [facility] Anion gap 10 2 - 15 mmol/L [facility] BUN 8 6 - 25 mg/dL [facility] Creatinine 0.80 0.80 - 1.30 mg/dL [facility] Glucose 332(H) 70 - 199 mg/dL [facility] Comment: Interpretive Data Fasting glucose >/= [...] 2022. Calcium 8.9 8.5 - 10.3 mg/dL [facility] Bilirubin, total 0.6 0.1 - 1.2 mg/dL [facility] Protein, pl 6.6 6.5 - 8.5 g/dL [facility] Albumin 3.4(L) 3.5 - 5.0 g/dL [facility] Alk phos 216(H) 40 - 130 Units/L [facility] ALT 32 7 - 55 Units/L [facility] AST 43 10 - 50 Units/L [facility] Blood 11/26/2024 11:5 2 AM CDT 11/26/2024 12:01 PM CDT Franklin Phelps MD PhD LAB BLOOD ORDERABLES Fin al Result Performing Organization Address City/[facility] Co de Phone Number [facility] [place] [address] * eGFR (11/12/2024 10:35 AM CDT) eGFR [...] ORDERABLES Fin al Result Performing Organization Address [facility] Co de Phone Number [facility] Department [place] [address] * (ABNORMAL) CBC with auto differential (11/12/2024 10:35 AM CDT) WBC 3.41(L) 3.80 - 9.90 K/cumm Comment:Testing performed by : [facility], [address] [place] [address] Hgb 8.8(L) 13.0 - 17.5 g/dL CERNER BJ Comment:Testing performed by : [facility], [address] [place] [address] Hct 26.7(L) 38.9 - 50.3 % CERNER BJ Comment:Testing performed by : [facility], [address] [place] [address] Plt 155 150 - 400 K/cumm CERNER BJ Comment:Testing performed by : [facility], [address] [place] [address] MPV 7.1 6.8 - 10.4 fL CERNER BJ Comment:Testing performed by : [facility], [address] [place] [address] RBC 3.31(L) 4.30 - 5.80 M/cumm CERNER BJ Comment:Testing performed by : [facility], [address] [place] [address] MCV 80.9(L) 81.3 - 96.4 fL CERNER BJ Comment:Testing performed by : [facility], [address] [place] [address] MCH 26.7(L) 27.1 - 33.3 pg CERNER BJ Comment:Testing performed by : [facility], [address] [place] [address] MCHC 33.0 32.3 - 35.7 g/dL CERNER BJ Comment:Testing performed by : [facility], [address] [place] [address] RDW CV 15.5(H) 11.1 - 14.9 % CERNER BJ Comment:Testing performed by : [facility], [address] [place] [address] NRBC abs 0.00 0.00 - 0.01 K/cumm CERUBALDO BJ Comment:Testing performed by : [facility], [address] [place], [place] [phone] Blood 11/12/2024 10:3 5 AM CDT 11/12/2024 10:37 AM CDT us Franklin Phelps MD PhD LAB BLOOD ORDERABLES Fin al Result [facility] [place] [address] * Manual Differential (11/12/2024 10:35 AM CDT) Cells Counted 176 Comment:Testing performed by : [facility], [address] [place] [address] Neutrophil abs 2.28 1.50 - 6.50 K/cumm CERNER BJ Comment:Testing performed by : [facility], [address] [place], [place] [phone] Lymphocyte abs 0.82 0.80 - 3.30 K/cumm CERNER BJ Comment:Testing performed by : [facility], [address] [place], [place] [phone] Monocyte abs 0.20 0.20 - 0.80 K/cumm CERUBALDO BJ Comment:Testing performed by : [facility], [address] [place] [address] Eosinophil abs 0.10 0.00 - 0.50 K/cumm CERUBALDO BJ Comment:Testing performed by : [facility], [address] [place], [place] [phone] Basophil abs 0.03 0.00 - 0.10 K/cumm CERUBALDO BJ Comment:Testing performed by : [facility], [address] [place], [place] [phone] Neutrophil pct 67.0 % CERUBALDO BJ Comment: Interpretive Data Percent cell count reference ranges are not reported, since discordance with absolute values may lead to misinterpretation of CBC data. Current Interpretive Data was last revised on 2017. Testing performed by: [facility], [address] [place] [phone] Lymphocyte pct 24.0 % CERNER [facility] Comment: Interpretive Data Percent cell count reference ranges are not reported, since discordance with absolute values may lead to misinterpretation of CBC data. Current Interpretive Data was last revised on 2017. Testing performed by: [facility], [address] [place] [phone] Monocyte pct 6.0 % CERNER [facility] Comment: Interpretive Data Percent cell count reference ranges are not reported, since discordance with absolute values may lead to misinterpretation of CBC data. Current Interpretive Data was last revised on 2017. Testing performed by: [facility], [address] [place] [phone] Eosinophil pct 3.0 % CERNER [facility] Comment: Interpretive Data Percent cell count reference ranges are not reported, since discordance with absolute values may lead to misinterpretation of CBC data. Current Interpretive Data was last revised on 2017. Testing performed by: [facility], [address] [place] [phone] Basophil pct 1.0 % CERNER [facility] Comment: Interpretive Data Percent cell count reference ranges are not reported, since discordance with absolute values may lead to misinterpretation of CBC data. Current Interpretive Data was last revised on 2017. Testing performed by: [facility], [address] [place] [phone] RBC morphology Normal CERNER [facility] Comment:Testing performed by : [facility], [address] [place] [phone] Platelet estimate Adequate CERNER [facility] Comment:Testing performed by : [facility], [address] [place] [phone] Blood 11/12/2024 10:3 5 AM CDT 11/12/2024 10:37 AM CDT us Franklin Phelps MD PhD LAB BLOOD ORDERABLES Fin al Result [facility] [place] [address] * (ABNORMAL) Comprehensive metabolic panel (11/12/2024 10:35 AM CDT) Sodium 136 135 - 145 mmol/L Potassium, pl 4.0 3.3 - 4.9 mmol/L [facility] Chloride 100 97 - 110 mmol/L [facility] CO2 26 22 - 32 mmol/L [facility] Anion gap 10 2 - 15 mmol/L [facility] BUN 11 6 - 25 mg/dL [facility] Creatinine 0.82 0.80 - 1.30 mg/dL [facility] Glucose 258(H) 70 - 199 mg/dL [facility] Comment: Interpretive Data Fasting glucose >/= [...] 2022. Calcium 9.1 8.5 - 10.3 mg/dL [facility] Bilirubin, total 0.3 0.1 - 1.2 mg/dL [facility] Protein, pl 6.6 6.5 - 8.5 g/dL [facility] Albumin 3.5 3.5 - 5.0 g/dL [facility] Alk phos 217(H) 40 - 130 Units/L [facility] ALT 38 7 - 55 Units/L [facility] AST 35 10 - 50 Units/L [facility] Blood 11/12/2024 10:3 5 AM CDT 11/12/2024 10:38 AM CDT Franklin Phelps MD PhD LAB BLOOD ORDERABLES Fin al Result Performing Organization Address [facility] de Phone Number [facility] [place] [address] * eGFR (11/05/2024 2:26 PM CDT) Pathologist [facility] eGFR >90 >=60 mL/min/1. 73 [...] ORDERABLES Fin al Result Performing Organization Address [facility] Co de Phone Number JOB MCCOLLUM [facility] [place] [address] * (ABNORMAL) CBC with auto differential (11/05/2024 2:26 PM CDT) [facility] WBC 4.85 3.80 - 9.90 K/cumm Comment:Testing performed by : [facility], [address] [place] [phone] Hgb 8.8(L) 13.0 - 17.5 g/dL JOB [facility] Comment:Testing performed by : [facility], [address] [place], [place] [phone] Hct 26.0(L) 38.9 - 50.3 % CERNER BJ Comment:Testing performed by : [facility], [address] [place], [place] [phone] Plt 239 150 - 400 K/cumm CERNER BJ Comment:Testing performed by : [facility], [address] [place], [place] [phone] MPV 6.5(L) 6.8 - 10.4 fL CERNER BJ Comment:Testing performed by : [facility], [address] [place], [place] [phone] RBC 3.29(L) 4.30 - 5.80 M/cumm CERNER BJ Comment:Testing performed by : [facility], [address] [place], [place] [phone] MCV 79.0(L) 81.3 - 96.4 fL CERNER BJ Comment:Testing performed by : [facility], [address] [place], [place] [phone] MCH 26.8(L) 27.1 - 33.3 pg CERNER BJ Comment:Testing performed by : [facility], [address] [place], [place] [phone] MCHC 34.0 32.3 - 35.7 g/dL CERNER BJ Comment:Testing performed by : [facility], [address] [place], [place] [phone] RDW CV 15.1(H) 11.1 - 14.9 % CERNER BJ Comment:Testing performed by : [facility], [address] [place], [place] [phone] NRBC abs 0.00 0.00 - 0.01 K/cumm CERNER BJ Comment:Testing performed by : [facility], [address] [place], [place] [phone] Blood 11/05/2024 2:26 PM CDT 11/05/2024 2:34 PM CDT us Franklin Phelps MD PhD LAB BLOOD ORDERABLES Fin al Result [facility] [place] [address] * (ABNORMAL) Manual Differential (11/05/2024 2:26 PM CDT) Cells Counted 200 Comment:Testing performed by : [facility], [address] [place] [address] Neutrophil abs 3.83 1.50 - 6.50 K/cumm CERNER BJ Comment:Testing performed by : [facility], [address] [place], [place] [phone] Lymphocyte abs 0.63(L) 0.80 - 3.30 K/cumm CERNER BJ Comment:Testing performed by : [facility], [address] [place] [address] Monocyte abs 0.15(L) 0.20 - 0.80 K/cumm CERNER BJ Comment:Testing performed by : [facility], [address] [place], [place] [phone] Eosinophil abs 0.05 0.00 - 0.50 K/cumm CERNER BJ Comment:Testing performed by : [facility], [address] [place], [place] [phone] Basophil abs 0.10 0.00 - 0.10 K/cumm CERNER BJ Comment:Testing performed by : [facility], [address] [place], [place] [phone] Neutrophil pct 79.0 % CERNER BJ Comment: Interpretive Data Percent cell count reference ranges are not reported, since discordance with absolute values may lead to misinterpretation of CBC data. Current Interpretive Data was last revised on 2017. Testing performed by: [facility], [address] [place], [place] [phone] Lymphocyte pct 13.0 % CERNER BJ Comment: Interpretive Data Percent cell count reference ranges are not reported, since discordance with absolute values may lead to misinterpretation of CBC data. Current Interpretive Data was last revised on 2017. Testing performed by: [facility], [address] [place] [phone] Monocyte pct 3.0 % [facility] Comment: Interpretive Data Percent cell count reference ranges are not reported, since discordance with absolute values may lead to misinterpretation of CBC data. Current Interpretive Data was last revised on 2017. Testing performed by: [facility], [address] [place] [phone] Eosinophil pct 1.0 % [facility] Comment: Interpretive Data Percent cell count reference ranges are not reported, since discordance with absolute values may lead to misinterpretation of CBC data. Current Interpretive Data was last revised on 2017. Testing performed by: [facility], [address] [place] [phone] Basophil pct 2.0 % [facility] Comment: Interpretive Data Percent cell count reference ranges are not reported, since discordance with absolute values may lead to misinterpretation of CBC data. Current Interpretive Data was last revised on 2017. Testing performed by: [facility], [address] [place] [phone] Metamyelocyte pct 1.0(H) 0.0 - 0.0 % CERNER [facility] Comment:Testing performed by : [facility], [address] [place] [phone] Myelocyte pct 2.0(H) 0.0 - 0.0 % CERNER [facility] Comment:Testing performed by : [facility], [address] [place] [phone] Macrocytes 1+(A) CERNER [facility] Comment:Testing performed by : [facility], [address] [place] [phone] Platelet estimate Adequate CERNER [facility] Comment:Testing performed by : [facility], [address] [place] [phone] Blood 11/05/2024 2:26 PM CDT 11/05/2024 2:34 PM CDT us Franklin Phelps MD PhD LAB BLOOD ORDERABLES Fin al Result [facility] [place] [address] * (ABNORMAL) Comprehensive metabolic panel (11/05/2024 2:26 PM CDT) Sodium 140 135 - 145 mmol/L Potassium, pl 3.7 3.3 - 4.9 mmol/L CERNER [facility] Chloride 104 97 - 110 mmol/L CERNER [facility] CO2 26 22 - 32 mmol/L CERNER [facility] Anion gap 10 2 - 15 mmol/L [facility] BUN 10 6 - 25 mg/dL CERNER [facility] Creatinine 0.78(L) 0.80 - 1.30 mg/dL [facility] Glucose 231(H) 70 - 199 mg/dL [facility] Comment: Interpretive Data Fasting glucose >/= [...] Calcium 9.0 8.5 - 10.3 mg/dL CERNER [facility] Bilirubin, total 0.2 0.1 - 1.2 mg/dL [facility] Protein, pl 6.7 6.5 - 8.5 g/dL [facility] Albumin 3.3(L) 3.5 - 5.0 g/dL [facility] Alk phos 234(H) 40 - 130 Units/L CERNER [facility] ALT 44 7 - 55 Units/L CERNER [facility] AST 36 10 - 50 Units/L [facility] Blood 11/05/2024 2:26 PM CDT 11/05/2024 2:34 PM CDT Franklin Phelps MD PhD LAB BLOOD ORDERABLES Fin al Result Performing Organization Address City/[facility] Co de Phone Number JOB MCCOLLUM [facility] [place] [address] * eGFR (10/29/2024 8:05 AM CDT) Pathologist [facility] eGFR >90 >=60 mL/min/1. 73 [...] ORDERABLES Fin al Result Performing Organization Address City/[facility] Co de Phone Number JOB VEDA [facility] [place] [address] * Differential, auto (10/29/2024 8:05 AM CDT) Pathologist [facility] Neutrophil abs 4.64 1.50 - 6.50 K/cumm Comment:Testing performed by : [facility], [address] [place] [phone] Lymphocyte abs 0.86 0.80 - 3.30 K/cumm JOB [facility] Comment:Testing performed by : [facility], [address] [place] [phone] Monocyte abs 0.42 0.20 - 0.80 K/cumm CERNER [facility] Comment:Testing performed by : [facility], [address] [place] [phone] Eosinophil abs 0.13 0.00 - 0.50 K/cumm CERNER [facility] Comment:Testing performed by : [facility], [address] [place] [phone] Basophil abs 0.06 0.00 - 0.10 K/cumm CERNER [facility] Comment:Testing performed by : [facility], [address] [place] [phone] Neutrophil pct 76.0 % CERNER [facility] Comment: Interpretive Data Percent cell count reference ranges are not reported, since discordance with absolute values may lead to misinterpretation of CBC data. Current Interpretive Data was last revised on 2017. Testing performed by: [facility], [address] [place] [phone] Lymphocyte pct 14.1 % [facility] Comment: Interpretive Data Percent cell count reference ranges are not reported, since discordance with absolute values may lead to misinterpretation of CBC data. Current Interpretive Data was last revised on 2017. Testing performed by: [facility], [address] [place] [phone] Monocyte pct 6.8 % [facility] Comment: Interpretive Data Percent cell count reference ranges are not reported, since discordance with absolute values may lead to misinterpretation of CBC data. Current Interpretive Data was last revised on 2017. Testing performed by: [facility], [address] [place] [phone] Eosinophil pct 2.1 % [facility] Comment: Interpretive Data Percent cell count reference ranges are not reported, since discordance with absolute values may lead to misinterpretation of CBC data. Current Interpretive Data was last revised on 2017. Testing performed by: [facility], [address] [place] [phone] Basophil pct 1.0 % [facility] Comment: Interpretive Data Percent cell count reference ranges are not reported, since discordance with absolute values may lead to misinterpretation of CBC data. Current Interpretive Data was last revised on 2017. Testing performed by: [facility], [address] [place] [address] Blood 10/29/2024 8:05 AM CDT 10/29/2024 8:10 AM CDT us Franklni Phelps MD PhD LAB BLOOD ORDERABLES Fin al Result [facility] [place] [address] * (ABNORMAL) CBC with auto differential (10/29/2024 8:05 AM CDT) WBC 6.10 3.80 - 9.90 K/cumm Comment:Testing performed by : [facility], [address] [place] [address] Hgb 8.6(L) 13.0 - 17.5 g/dL CERNER [facility] Comment:Testing performed by : [facility], [address] [place] [address] Hct 26.0(L) 38.9 - 50.3 % CERUBALDO BJ Comment:Testing performed by : [facility], [address] [place] [address] Plt 357 150 - 400 K/cumm CERUBALDO BJ Comment:Testing performed by : [facility], [address] [place] [address] MPV 6.9 6.8 - 10.4 fL CERUBALDO BJ Comment:Testing performed by : [facility], [address] [place] [address] RBC 3.20(L) 4.30 - 5.80 M/cumm CERUBALDO BJ Comment:Testing performed by : [facility], [address] [place] [address] MCV 81.3 81.3 - 96.[address] [facility] Comment:Testing performed by : [facility], [address] [place] [phone] MCH 26.8(L) 27.1 - 33.[address] [facility] Comment:Testing performed by : [facility], [address] [place], [place] [phone] MCHC 33.0 32.3 - 35.7 g/dL JOB MCCOLLUM Comment:Testing performed by : [facility], [address] [place], [place] [phone] RDW CV 14.9 11.1 - 14.9 % JOB [facility] Comment:Testing performed by : [facility], [address] [place], [place] [phone] NRBC abs 0.00 0.00 - 0.01 K/cumm JOB [facility] Comment:Testing performed by : [facility] [facility], [address] [place] [phone] Blood 10/29/2024 8:05 AM CDT 10/29/2024 8:10 AM CDT us Franklin Phelps MD PhD LAB BLOOD ORDERABLES Fin al Result [facility] [place] [address] * (ABNORMAL) Comprehensive metabolic panel (10/29/2024 8:05 AM CDT) Sodium 138 135 - 145 mmol/L Potassium, pl 4.3 3.3 - 4.9 mmol/L [facility] Chloride 102 97 - 110 mmol/L [facility] CO2 27 22 - 32 mmol/L [facility] Anion gap 9 2 - 15 mmol/L [facility] BUN 12 6 - 25 mg/dL [facility] Creatinine 0.82 0.80 - 1.30 mg/dL [facility] Glucose 201(H) 70 - 199 mg/dL [facility] Comment: Interpretive Data Fasting glucose >/= [...] Calcium 9.2 8.5 - 10.3 mg/dL [facility] Bilirubin, total 0.3 0.1 - 1.2 mg/dL [facility] Protein, pl 6.9 6.5 - 8.5 g/dL [facility] Albumin 3.2(L) 3.5 - 5.0 g/dL [facility] Alk phos 299(H) 40 - 130 Units/L [facility] ALT 43 7 - 55 Units/L [facility] AST 27 10 - 50 Units/L [facility] Blood 10/29/2024 8:05 AM CDT 10/29/2024 8:09 AM CDT Franklin Phelps MD PhD LAB BLOOD ORDERABLES Fin al Result JOB [facility] [place] [address] * SCAN - PATHOLOGY (10/24/2024 11:55 AM [...] completed, removal can be scheduled by calling [facility] - [phone] [facility] - [phone] Dictated by: Simone Schrader M.D. The radiology [...] was obtained. Prior to beginning the procedure, [place] Protocol was used to confirm the patient's [...] was obtained. Prior to beginning the procedure, [place] Protocol was used to confirm the patient's [...] completed, removal can be scheduled by calling [facility] - [phone] [facility] - [phone] Dictated by: Simone Schrader M.D. The radiology attending physician has personally reviewed this study, and had reviewed and/or edited this written report and agrees with it. Electronically signed by: Peter Silver M.D. Franklin Phelps MD PhD IMG IR PROCEDURES Final Result * ND AN ELECTIVE ENDOTRACHEAL AIRWAY, ND AN PROCEDURE PLACEHOLDER (10/18/2024 8:28 AM CDT) Narrative Radha Rutherford CRNA - 10/18/2024 8:28 AM CDT Radha Rutherford CRNA 10/18/2024 8:29 AM Airway Patient location: OR Urgency: elective Date/time: 10/18/2024 8:20 AM Indications for airway management: anesthesia and airway protection Difficult airway: no Staff: Placed by: MUFFLER TENDER: Radha Rutherford CRNA Emergent airway documentation: Risks [...] tape Number of attempts: 1no us Marcial iMchel MD ANESTHESIA ORDERABLES Final Resu lt * Small bowel enteroscopy (10/18/2024 8:13 AM CDT) Anatomical Region Laterality Modality Other Narrative Procedure Note Arabella Painting MD - 10/18/2024 8:13 AM CDT GI ENDOSCOPY OCEANSIDE Patient Name: Oc Duron Procedure Date: 10/18/2024 8:13 AM Date of : 1965 Admit Type: Outpatient Age: 59 Gender: Male Attending MD: Arabella Painting M.D. Room: [facility] ENDOSCOPY ROOM 9 Note Status: Finalized [...] passed under direct vision. The PCF [id number] endoscope was introduced through the mouth, and [...] DEVICE Fin al Result Performing Organization Address [facility] Phone Number [facility] [place] [employer] [place] [address] * GI - RESULT (10/16/2024 2:25 PM CDT) Anatomical Region Laterality Modality Other Provider Scanning Final Result * -Miscellaneous Molecular Send-out Request (10/15/2024 4:51 PM CDT) Result 1 Test Name: Tempus xT Specimen Type: PB Result: See attached scanned report for results. Comment:Credited, duplicate test. Test name Tempus xT [facility] Blood 10/15/2024 4:51 PM CDT 10/16/2024 3:19 PM CDT Franklin Phelps MD PhD LAB GENETIC TESTING Asuncion l Result Performing Organization Address [facility] de Phone Number [facility] [place] [address] * DPYD full gene sequencing -Miscellaneous Molecular Send-out Request (10/15/2024 4:50 PM CDT) Result 1 Test Name: Dihydropyrimidine Dehydrogenase Gene Full Sequencing ([place]) Specimen Type: PB Result: See attached scanned report for results. Test name Dihydropyrimidine Dehydrogenase Gene Full Sequencing ([place]) [facility] Blood 10/15/2024 4:50 PM CDT 10/16/2024 11:27 AM CDT [facility]ative [facility] - 10/22/2024 11:49 AM CDT Test Requested:->DPYD full gene sequencing Franklin Phelps MD PhD LAB GENETIC TESTING Asuncion l Result Performing Organization Address [facility] Co de Phone Number [facility] [place] [address] * eGFR (10/15/2024 4:50 PM CDT) Pathologist [facility] eGFR 83 >=60 mL/min/1. 73 m2 Comment: [...] ORDERABLES Fin al Result Performing Organization Address City/[facility]/ZIP Co de Phone Number JOB MCCOLLUM [facility] [place] [address] * Differential, auto (10/15/2024 4:50 PM CDT) Pathologist [facility] Neutrophil abs 5.78 1.50 - 6.50 K/cumm Comment:Testing performed by : [facility] Cancer [facility], [address] [place] [phone] Lymphocyte abs 0.89 0.80 - 3.30 K/cumm [facility] Comment:Testing performed by : [facility], [address] [place] [phone] Monocyte abs 0.58 0.20 - 0.80 K/cumm [facility] Comment:Testing performed by : [facility], [address] [place] [phone] Eosinophil abs 0.07 0.00 - 0.50 K/cumm [facility] Comment:Testing performed by : [facility], [address] [place] [phone] Basophil abs 0.06 0.00 - 0.10 K/cumm [facility] Comment:Testing performed by : [facility], [address] [place] [phone] Neutrophil pct 78.3 % [facility] Comment: Interpretive Data Percent cell count reference ranges are not reported, since discordance with absolute values may lead to misinterpretation of CBC data. Current Interpretive Data was last revised on 2017. Testing performed by: [facility], [address] [place] [phone] Lymphocyte pct 12.1 % [facility] Comment: Interpretive Data Percent cell count reference ranges are not reported, since discordance with absolute values may lead to misinterpretation of CBC data. Current Interpretive Data was last revised on 2017. Testing performed by: [facility], [address] [place] [phone] Monocyte pct 7.9 % [facility] Comment: Interpretive Data Percent cell count reference ranges are not reported, since discordance with absolute values may lead to misinterpretation of CBC data. Current Interpretive Data was last revised on 2017. Testing performed by: [facility], [address] [place] [phone] Eosinophil pct 1.0 % [facility] Comment: Interpretive Data Percent cell count reference ranges are not reported, since discordance with absolute values may lead to misinterpretation of CBC data. Current Interpretive Data was last revised on 2017. Testing performed by: [facility], [address] [place] [phone] Basophil pct 0.7 % [facility] Comment: Interpretive Data Percent cell count reference ranges are not reported, since discordance with absolute values may lead to misinterpretation of CBC data. Current Interpretive Data was last revised on 2017. Testing performed by: [facility], [address] [place] [phone] Blood 10/15/2024 4:50 PM CDT 10/15/2024 4:54 PM CDT Franklin Phelps MD PhD LAB BLOOD ORDERABLES Fin al Result Performing Organization Address City/[facility]/ZIP Co de Phone Number [facility] Department [place] [address] * (ABNORMAL) Iron profile w/ IBC (10/15/2024 4:50 PM CDT) Iron 21(L) 50 - 150 mcg/dL TIBC 163(L) 250 - 400 mcg/dL [facility] Transferrin saturation 13(L) 20 - 50 % [facility] Blood 10/15/2024 4:50 PM CDT 10/15/2024 5:13 PM CDT Franklin Phelps MD PhD LAB BLOOD ORDERABLES Fin al Result Performing Organization Address City/[facility]/ZIP Co de Phone Number [facility] Department [place] [address] * (ABNORMAL) CBC with auto differential (10/15/2024 4:50 PM CDT) WBC 7.38 3.80 - 9.90 K/cumm Comment:Testing performed by : [facility], [address] [place] [phone] Hgb 9.3(L) 13.0 - 17.5 g/dL [facility] Comment:Testing performed by : [facility], [address] [place], [place] [phone] Hct 27.7(L) 38.9 - 50.3 % [facility] Comment:Testing performed by : [facility], [address] [place], [place] [phone] Plt 526(H) 150 - 400 K/cumm [facility] Comment:Testing performed by : [facility], [address] [place], [place] [phone] MPV 6.9 6.8 - 10.4 fL [facility] Comment:Testing performed by : [facility], [address] [place], [place] [phone] RBC 3.38(L) 4.30 - 5.80 M/cumm [facility] Comment:Testing performed by : [facility], [address] [place], [place] [phone] MCV 82.1 81.3 - 96.4 fL [facility] Comment:Testing performed by : [facility], [address] [place], [place] [phone] MCH 27.6 27.1 - 33.3 pg [facility] Comment:Testing performed by : [facility], [address] [place] [address] MCHC 33.7 32.3 - 35.7 g/dL [facility] Comment:Testing performed by : [facility], [address] [place] [address] RDW CV 14.2 11.1 - 14.9 % [facility] Comment:Testing performed by : [facility], [address] [place], [place] [phone] NRBC abs 0.00 0.00 - 0.01 K/cumm [facility] Comment:Testing performed by : [facility], [address] [place], [place] [phone] Blood 10/15/2024 4:50 PM CDT 10/15/2024 4:54 PM CDT us Franklin Phelps MD PhD LAB BLOOD ORDERABLES Fin al Result Performing Organization Address [facility] de Phone Number [facility] [address] * Cancer antigen 19-9 (10/15/2024 4:50 PM [...] ORDERABLES Fin al Result Performing Organization Address [facility] de Phone Number [facility] [place] [place] [address] * aPTT (10/15/2024 4:50 PM CDT) aPTT [...] ORDERABLES Fin al Result Performing Organization Address [facility] de Phone Number JOB [facility] [place] [place] [address] * (ABNORMAL) Protime-INR (10/15/2024 4:50 PM CDT) PT 15.9(H) 9.7 - 13.0 sec INR 1.46(H) 0.90 - 1.20 [facility] Comment: Interpretive data Oral anticoagulant therapeutic [...] ORDERABLES Fin al Result Performing Organization Address [facility] Co de Phone Number [facility] [place] [employer] [place] [address] * (ABNORMAL) Ferritin (10/15/2024 4:50 PM CDT) Ferritin 608(H) 30 - 400 ng/mL Blood 10/15/2024 4:50 PM CDT 10/15/2024 5:13 PM CDT Result [facility] Franklin Phelps MD PhD LAB BLOOD ORDERABLES Fin al Result Performing Organization Address [facility] Phone Number [facility] [place] [employer] [place] [address] * CEA (10/15/2024 4:50 PM CDT) CEA [...] PhD LAB BLOOD ORDERABLES Fin al Result [facility] [place] [address] * (ABNORMAL) Comprehensive metabolic panel (10/15/2024 4:50 PM CDT) Sodium 142 135 - 145 mmol/L Potassium, pl 4.3 3.3 - 4.9 mmol/L [facility] Chloride 99 97 - 110 mmol/L [facility] CO2 31 22 - 32 mmol/L [facility] Anion gap 12 2 - 15 mmol/L [facility] BUN 15 6 - 25 mg/dL [facility] Creatinine 1.04 0.80 - 1.30 mg/dL [facility] Glucose 178 70 - 199 mg/dL [facility] Comment: Interpretive Data Fasting glucose >/= [...] 2022. Calcium 9.5 8.5 - 10.3 mg/dL [facility] Bilirubin, total 0.5 0.1 - 1.2 mg/dL [facility] Protein, pl 7.4 6.5 - 8.5 g/dL [facility] Albumin 2.9(L) 3.5 - 5.0 g/dL [facility] Alk phos 305(H) 40 - 130 Units/L [facility] ALT 34 7 - 55 Units/L [facility] AST 40 10 - 50 Units/L [facility] Blood 10/15/2024 4:50 PM CDT 10/15/2024 5:13 PM CDT us Franklin Phelps MD PhD LAB BLOOD ORDERABLES Fin al Result [facility] [place] [address] * Tempus xT DNA and RNA (10/15/2024 [...] PM CDT [facility]us Portal [id number] 10/30/2024 3:24 PM CDT [facility] Comment:Tempus [...] Status: Consensus Evidence ID: NCCN KDB Variant: [id number] Label: FDA Off Label FDA Approved?: Yes On label?: No 10/30/2024 3:24 PM CDT [facility] Trial Count 3 10/30/2024 3:24 PM CDT [facility] Tempus: Clinical Trial Match 1 Clinical Trial NCT ID: [id number] Clinical Trial Title: A Study of APG-115 in as a Monotherapy or Combination With Pembrolizumab in Patients With Metastatic Melanomas or Advanced Solid Tumors Clinical Trial URL: [email or web address] [email or web address] hospitalls.gov/ct2/[email or web address] Clinical Phase: Phase 1/Phase 2 Clinical Trial Matches: PEDRO p.R2993* mutation Clinical Trial Distance and Location: 1 [place], [place] 10/30/2024 3:24 PM CDT [facility] Tempus: Clinical Trial Match 2 Clinical Trial NCT ID: [id number] Clinical Trial Title: Tumor-agnostic Precision Immuno-oncology and Somatic Targeting Rational for You (TAPISTRY) Platform Study Clinical Trial URL: [email or web address] rials.gov/ct2/ashley mcclendon/[email or web address] Clinical Phase: Phase 2 Clinical Trial Matches: PEDRO p.R2993* mutation Clinical Trial Distance and Location: [address] [place], [place] 10/30/2024 3:24 PM CDT [facility] Tempus: Clinical Trial Match 3 Clinical Trial NCT ID: [id number] Clinical Trial Title: A Study of PARG Inhibitor PEC688 in Participants With Advanced Solid Tumors Clinical Trial URL: [email or web address] rials.gov/ct2/ashley [email or web address] Clinical Phase: Phase 1 Clinical Trial Matches: PEDRO p.R2993* mutation Clinical Trial Distance and Location: [address] [place], [place] 10/30/2024 3:24 PM CDT [facility] [...] Result - Final [facility] [address], [address] [place] [address], [facility] [phone] [facility] [address], [address] [place] [address] * Surgical pathology (10/11/2024 10:47 AM CDT) Tissue (Miscellaneous) 10/11/2024 10:47 AM CDT 10/11/2024 10:47 AM CDT Narrative [facility]Y LAB - 10/12/2024 3:36 PM CDT EPIC results best viewed via link to PDF [facility] Consult Service [address], [place] [address] Note to Patients: This report [...] SURGICAL PATHOLOGY REPORT * Consult Report * [facility] is providing an additional review of previously collected tissue. FINAL WITH ADDENDUM Patient Name: OC DURON Address: [address] [place], [place] [phone] Gender: M : 1965 (Age: 59) Hospital #: [id number] Patient Type: MATTY Location: UNKNOWN Taken: 10/11/2024 Received: 10/11/2024 Accessioned: 10/11/2024 Reported: 10/12/2024 Physician(s): MD Franklin George M.D. [facility] Department of Pathology [address] [place] [address] P: [phone] F: [phone] Diagnosis: Consult material received from [place], [place] (OSC: [id number]; 10/03/2024). Liver, left lobe mass, biopsy - [...] Received for review are thirteen slides labeled [id number], accompanied by a corresponding pathology report. The material originates from [place], [place]. Selected slide(s) may be digitally scanned for our files, and all materials are returned to the referring institution, along with a copy of our final report. Addenda/Procedures Addendum Ordered: 10/18/2024 Status: Signed Out Addendum Complete: 10/18/2024y: Ally Torres MD, PHDAddendum Signed Out: 10/23/2024 Addendum Comment Additionally received 8 unstained slides labeled [id number] for additional materials on [id number]. The material originates from [place], [place]. By this signature, I attest that [...] the Department of Pathology and Immunology at [facility], [address] [place] [address] CLIA # [id number] The performance characteristics of the testing cited in this report (if any) were determined by the [facility] Department of Pathology and Immunology [facility], as part of an ongoing quality system manager program and in compliance with federally mandated [...] and the performance characteristics determined by the [facility], [facility] Department of Pathology and Immunology. It has not been cleared or approved by the U.S. Food and Drug Administration. Any test designated as LDT was developed and its performance characteristics determined by [facility]. It has not been cleared or approved by the FDA. This test is used for clinical purposes and should not be regarded as investigational or for research. Report images and/or scanned reports, if included, only viewable in PDF version of report. Heidi Montes De Oca MD LAB PATHOLOGY ORDERABLES Final R esult [facility] [address] [address] * SCAN - PATHOLOGY (10/08/2024 3:23 PM [...] images may or may not represent the nikolski source data set and thus may contain changes that may lower the accuracy of this second-opinion interpretation. Electronically signed by: Abel De La Paz M.D. Narrative 10/05/2024 3:22 PM CDT EXAMINATION: RADIOLOGY CONSULTATION ON OUTSIDE IMAGING STUDY STUDY INITIALLY PERFORMED: 09/30/2024 at [facility] TYPE OF STUDY: Multiple CT images of [...] IMAGING STUDY STUDY INITIALLY PERFORMED: 09/30/2024 at [facility] TYPE OF STUDY: Multiple CT images of [...] images may or may not represent the nikolski source data set and thus may contain [...] last revised 2018. Creatinine Ur 240.8 mg/dL [facility] Comment: Interpretive Data No reference range established. Current interpretive data was last revised 2018. Albumin Creatinine Ratio, Ur 11 1 - 29 mg/g [facility] Urine 04/06/2024 9:50 AM CDT 04/06/2024 2:41 PM CDT Haily Siddiqi BUNDLE BREAKER LAB URINE ORDERABLES Asuncion l Result [facility] [address] [address] [place] [address] * Lipid panel (04/06/2024 9:50 AM CDT) [...] AM CDT 04/06/2024 2:41 PM CDT Result [facility] Haily Siddiqi NP LAB BLOOD ORDERABLES [place] l Result [address] [address] [address] [place] [address] * (ABNORMAL) POCT hemoglobin A1c (04/06/2024 9:05 AM CDT) Hemoglobin A1C, POC 8.7 4.0 - 5.6 % Blood 04/06/2024 9:05 AM CDT Result [facility] Haily Siddiqi NP POINT OF CARE TEST ORDERA BLES Final Result * (ABNORMAL) DIABETES EYE EXAM (01/17/2024 8:11 AM CDT) Result [facility] Historical Provider HEALTH MAINTENANCE Final Result * Diabetic Foot Exam (12/12/2019) Result [facility] Historical Provider HEALTH MAINTENANCE Final Result * PSA screen (10/11/2017 11:35 AM CDT) SCRIBED PSA, Serum 1.5 0.0 - 4.0 [facility] Blood specimen (specimen) us Historical Provider LAB BLOOD ORDERABLES Edit ed Result - Final [facility] from Last 3 Months or Most Recently Relevant to [place] [address] [facility] [place] [address] [facility] [place] [address] [facility] [place] [address] [facility] CHO[facility] PLUS Advance Directives For more information, please contact: [phone] * Full Code (Latest Code Status on File) Date Activated Date Inactivated Comments 10/18/2024 7:56 AM 10/24/2024 1:23 PM * Full Code Date Activated Date Inactivated Comments 05/13/2021 5:01 PM 05/14/2021 2:11 PM Care Teams Pastry Wrapper Relationship Specialty Start Date End Date Vu Condon DO [address] [phone] PCP - General Internal Medicine 10/04/24 Franklin [facility]helps MD PhD [address] [place] [address] Medical Oncologist/Fine Jewelry Sales Associate Medical Oncology 10/25/24
--- OUTSIDE RECORDS SUMMARY | 2024-11-30 21:32 | XMS_ITS | Encounter Summary ---
Author Organization [facility] Address [address] [place] [address] Phone Care Team Providers Care Sinter Press Operator Name Role Phone Vu Condon DO Primary Care Provider [phone] Franklin [facility]hel[facility] MD PhD Unavailable [phone] Encounter Details Date Type Department Care Team (Late st Contact Info) Description 11/30/2024 Telephone [facility] Oncology [address] [facility] [address] [place] [address] Kaitlin Robles RN Social History [...] on file Legal 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 I let Rxe know that Colace is fine to take [...] Author [facility](04/2020 12:07 PM MANUFACTURING LEAD) Mariana Camejo, MARTA Note: Patient will establish a comfort-function goal and identify the pain level that will allow the patient to perform desired activities and achieve an acceptable quality of life. documented as of this encounter Visit Diagnoses Not on filedocumented in this encounter Care Teams Sinter Press Operator Relationship Specialty Start Date End Date Vu Condon DO [address] [facility] [address] [place] [address] PCP - General Internal Medicine 10/04/24 Franklin [facility]helps MD PhD [address] [address] Medical Oncologist/Technology Training Associate Medical Oncology 10/25/24 documented as of this encounter
--- OUTSIDE RECORDS SUMMARY | 2024-11-30 21:32 | XMS_ITS | Clinical Summary ---
Author Organization [facility] Address [address] [place] [address] Phone Care Team Providers Care Food Dehydrator Operator Name Role Phone Unavailable Primary Care Provider [...]
--- OUTSIDE RECORDS SUMMARY | 2024-11-30 21:32 | XMS_ITS | Referral Summary ---
Author Organization [facility] Address [address] [place] [address] Care Team Providers Care Ict Systems Test Engineer Name Role Phone Vu Condon Primary Care Provider [phone] Franklin Phelps MD PhD Unavailable [phone] Encounters Date Type Department Care Team Description 11/30/2024 Telephone [facility] [address] [place] [phone] Kaitlin Robles RN 11/26/2024 2:00 PM CDT Infusion [facility] - Infusion [address] [place] [address] Malignant neoplasm metastatic to liver (HCC) (Primary Dx); Malignant neoplasm of head of pancreas (HCC) 11/26/2024 11:45 AM CDT Clinical Support [facility] - Lab Collection [address] [place] [address] 5 [place] [address] Malignant neoplasm of head of pancreas (HCC); Malignant neoplasm metastatic to liver (HCC) 11/26/2024 12:45 PM CDT Office Visit [facility] [address] [place] [address] 5 [place] [address] Barbara Weinberg PA Malignant neoplasm metastatic to liver (HCC) (Primary Dx); Malignant neoplasm of head of pancreas (HCC) 11/14/2024 Telephone [facility] [address] [place] [address] Floor 8 [place] [address] Kaitlin Robles RN 11/14/2024 Documentation [facility] [address] [facility] [place] [address] Vianney Rees CMA 11/12/2024 12:30 PM CDT Infusion [facility] - Infusion [address] [place] [address] Malignant neoplasm metastatic to liver (HCC) (Primary Dx); Malignant neoplasm of head of pancreas (HCC) 11/12/2024 10:30 AM CDT Clinical Support [facility] - Lab Collection [facility] [place] [address] Malignant neoplasm of head of pancreas (HCC); Malignant neoplasm metastatic to liver (HCC) 11/12/2024 11:30 AM CDT Office Visit [facility] [address] [place] [address] Floor 5 [place] [address] Franklin Phelps MD PhD Malignant neoplasm metastatic to liver (HCC) (Primary Dx); Malignant neoplasm of head of pancreas (HCC); Type 2 diabetes mellitus with hyperglycemia, with long-term current use of insulin (HCC) 11/05/2024 Orders Only [facility] [address] [place] [address] Floor 5 [place] [address] Franklin Phelps MD PhD 11/05/2024 2:00 PM CDT Clinical Support [facility] - Lab Collection [address] [place] [address] Floor 6 [place] [address] Malignant neoplasm of head of pancreas (HCC); Malignant neoplasm metastatic to liver (HCC) 11/05/2024 3:00 PM CDT Infusion [facility] - Infusion [address] [place] [address] Malignant neoplasm metastatic to liver (HCC) (Primary Dx); Malignant neoplasm of head of pancreas (HCC) 11/03/2024 Orders Only [facility] [address] [place] [address] Floor 8 [place] [address] Franklin Phelps MD PhD 10/30/2024 Orders Only [facility] [address] [place] [address] Floor 5 [place] [address] Franklin Phelps MD PhD 10/30/2024 Telephone [facility] [address] [place] [address] Floor 5 [place] [address] Kaitlin Robles RN 10/29/2024 8:30 AM CDT Clinical Support [facility] - Lab Collection [facility] Floor 5 [place] [address] Duodenal adenocarcinoma (HCC); Malignant neoplasm metastatic to liver (HCC) 10/29/2024 10:00 AM CDT Infusion [facility] - Infusion [address] 5 [place] [address] Malignant neoplasm of head of pancreas (HCC) (Primary Dx); Duodenal adenocarcinoma (HCC); Malignant neoplasm metastatic to liver (HCC) 10/29/2024 8:00 AM CDT Clinical Support [facility] Lab [address] [place] [address] 5 [place] [address] Duodenal adenocarcinoma (HCC); Malignant neoplasm metastatic to liver (HCC); Malignant neoplasm of head of pancreas (HCC) 10/29/2024 9:00 AM CDT Office Visit [facility] [address] [place] [address] 5 [place] [address] Franklin Phelps MD PhD Malignant neoplasm of head of pancreas (HCC) (Primary Dx); Duodenal adenocarcinoma (HCC); Malignant neoplasm metastatic to liver (HCC) 10/24/2024 Orders Only [facility] Scanning, Provider 10/23/2024 12:42 PM CDT - 10/23/2024 11:59 PM CDT Hospital Encounter [facility] Radiology [address] [address] Duodenal adenocarcinoma (HCC); Metastatic malignant neoplasm, unspecified site (HCC) Discharge Disposition: Discharge to home or self care 10/23/2024 3:11 PM CDT - 10/23/2024 11:59 PM CDT Hospital Encounter [facility] - [place] [address] [facility] Floor 8 [place] [address] Duodenal adenocarcinoma (HCC); Metastatic malignant neoplasm, unspecified site (HCC) Discharge Disposition: Discharge to home or self care 10/23/2024 3:11 PM CDT - 10/23/2024 11:59 PM CDT Hospital Encounter [facility] - [place] [address] [facility] Floor 8 [place] [address] Duodenal adenocarcinoma (HCC); Metastatic malignant neoplasm, unspecified site (HCC) Discharge Disposition: Discharge to home or self care 10/18/2024 Telephone [facility] Radiology [address] [facility] [place] [address] Erin Sanderson RN 10/18/2024 8:30 AM CDT - 10/18/2024 9:00 AM CDT Surgery [facility] Digestive Disease [address] [place] [address] Arabella Painting MD [facility] 10/18/2024 8:14 AM CDT Anesthesia Event [address] [place] [address] Marcial Michel MD 10/18/2024 7:02 AM CDT - 10/18/2024 11:33 AM CDT Hospital Encounter [address] [place] [address] Heidi Montes De Oca MD Early, Dayna S., MD Discharge Disposition: Discharge to home or self care 10/17/2024 Documentation [facility] [address] [place] [address] Medicine [facility] [place] [address] [place] [address] Neetu Tucker RN 10/17/2024 Telephone [facility] [address] [place] [address] Advanced Medicine [facility] [place] [address] [place] [address] Shari Roche 10/16/2024 Orders Only [facility] Scanning, Provider 10/16/2024 Telephone [facility] [address] [place] [address] Advanced Medicine [facility] [place] [address] [place] [address] Lakesha Adam 10/15/2024 Orders Only [facility] [address] [facility] Floor 5 [place] [address] Franklin Phelps MD PhD Malignant neoplasm metastatic to liver (HCC) (Primary Dx); Duodenal adenocarcinoma (HCC) 10/15/2024 4:30 PM CDT Lab [facility] - Lab Collection [address] [facility] Floor 5 [place] [address] Duodenal adenocarcinoma (HCC); Metastatic malignant neoplasm, unspecified site (HCC) 10/15/2024 3:30 PM CDT Office Visit [facility] [address] [facility] Floor 5 [place] [address] Franklin Phelps MD PhD Duodenal adenocarcinoma (HCC) (Primary Dx); Metastatic malignant neoplasm, unspecified site (HCC); Malignant neoplasm metastatic to liver (HCC) 10/11/2024 Orders Only [facility] [address] [address] Heidi Montes De Oca MD Metastatic malignant neoplasm, unspecified site (HCC) 10/09/2024 Telephone [facility] [address] [place] [address] Advanced Medicine [facility] [place] [address] [place] [address] Shari Roche GI Assessment pre procedure call 10/09/2024 Orders Only [facility] [address] [place] [address] 12th [place] [address] [place] [address] Neetu Tucker RN Metastatic malignant neoplasm, unspecified site (HCC) (Primary Dx) 10/09/2024 Documentation [facility] [address] [place] [address] 12th [place] [address] [place] [address] Heidi Montes De Oca MD 10/08/2024 Orders Only [facility] Scanning, Provider 10/07/2024 Results Follow-Up [facility] [address] [place] [address] 12th [place] [address] [place] [address] [address]idi Montes De Oca MD CT Body Outside Consult 10/04/2024 5:40 PM CDT - 10/04/2024 11:59 PM CDT Hospital Encounter [facility] Rad[facility] [address] [place] [address] Diagnosis unknown Discharge Disposition: Discharge to home or self care 10/04/2024 Telephone [facility] [address] [facility] 12th [place] [address] [place] [address] Neetu Tucker RN 09/30/2024 Telephone [facility] [address] [facility] 12th [place] [address] [place] [phone] Heidi Montes De Oca MD 09/21/2024 Orders [...] hyperglycemia, with long-term current use of insulin ([facility]) TAKE 1 TABLET DAILY BEFORE [...] and cover with plastic wrap or a [id number]. 30 g 6 025 Active metFORMIN XR (GLUCOPHAGE XR) 500 mg 24 hr tabletIndications :Type 2 diabetes mellitus with hyperglycemia, with long-term current use of insulin ([facility]) TAKE 2 TABLETS TWICE A DAY 360 tablet 3 025 Active SEMGLEE-yfgn 100 unit/mL (3 mL) pen for injectionIndicati ons:Type 2 diabetes mellitus with hyperglycemia, with long-term current use of insulin ([facility]) INJECT 80 UNITS UNDER THE SKIN DAILY, 75 mL 3 025 Active FreeStyle Treasure 2 Plus Sensor deviceIndications :Type 2 diabetes mellitus with hyperglycemia, with long-term current use of insulin ([facility]) Change sensor every 15 days 6 each 1 025 Active insulin glargine (LANTUS) 100 unit/mL (3 mL) pen for injectionIndicati ons:Type 2 diabetes mellitus with hyperglycemia, with long-term current use of insulin ([facility]) Inject 80 Units under the skin nightly [...] hyperglycemia, with long-term current use of insulin ([facility]) CHANGE SENSOR EVERY 14 DAYS [...] Phentermine Assessment & Plan (05/06/2023 9:22 AM DIRECTOR STAFFING): Start phentermine Diet and exercise Assessment & Plan (09/16/2022 11:32 AM CDT): Chronic problem. Discussed healthy diet and importance of regular physical activity (20- 30min/day, 150min/wk). SRI on CPAP 05/07/2021 Primary osteoarthritis of left shoulder 04/14/20 21 Overview (04/14/2021): Added automatically from request for surgery [id number] Diabetic polyneuropathy asso ciated with type 2 [...] Atovastatin 20mg. Last lipid panel: 01/13/23 LDL=93, YC=349. No changes at this time. Will update lipid panel today. Verified that he uses [employer]. Aware to check results/results letter in [employer]. Will contact by phone if needed. Assessment & Plan (01/13/2023 10:12 AM CDT): Chronic problem, controlled on current Atovastatin 20mg. Last lipid panel: 01/13/22 LDL=80, TG=95. No changes at this time. Will update lipid panel today. Verified that he uses [employer]. Aware to check results/results letter in [employer]. Will contact by phone if needed. Assessment & Plan (09/16/2022 11:34 AM CDT): Chronic problem, controlled on current Atovastatin 20mg. Last lipid panel: 01/13/22 LDL=80, TG=95. No changes at this time. Assessment & Plan (05/13/2022 10:18 AM DIRECTOR STAFFING): Chronic problem. On statin therapy, no changes. Assessment & Plan (01/13/2022 9:39 AM CDT): Chronic, well controlled Low fat Low cholesterol diet Exercise Continue statin therapy Check lipid profile Assessment & Plan (08/17/2021 4:39 PM DIRECTOR STAFFING): Chronic, well controlled Continue current meds Assessment & Plan (12/21/2019 10:56 AM CDT): At goal on current medications. Continue statin therapy. Assessment & Plan (09/13/2019 2:22 PM CDT): At goal on current medications. Continue statin therapy. Assessment & Plan (05/10/2019 4:20 PM DIRECTOR STAFFING): Goal of treatment , LDL cholesterol less [...] panel Assessment & Plan (06/06/2018 2:28 PM DIRECTOR STAFFING): Goal of treatment , LDL cholesterol less [...] update labs today. Verified that he uses [employer]. Aware to check results/results letter in [employer]. Will contact by phone if needed. Assessment & Plan (01/13/2023 10:08 AM CDT): Chronic problem, controlled on current valsartan-hctz 160-25mg daily. No changes at this time. Will update labs today. Verified that he uses [employer]. Aware to check results/results letter in [employer]. Will contact by phone if needed. Assessment & Plan (09/16/2022 11:32 AM CDT): Chronic problem, controlled on current valsartan-hctz 160-25mg daily. No changes at this time. Assessment & Plan (05/13/2022 10:18 AM DIRECTOR STAFFING): Controlled on current medications, no changes. Assessment & Plan (01/13/2022 9:40 AM CDT): Chronic, well controlled Continue current meds Check MA Assessment & Plan (12/21/2019 10:55 AM CDT): Controlled on current medications. Continue plan. Assessment & Plan (09/13/2019 2:22 PM CDT): Controlled on current medications. Continue plan. Assessment & Plan (05/10/2019 4:19 PM DIRECTOR STAFFING): Goal blood pressure is less than 140/85 Low salt diet recommended Daily aerobic exercise Continue current meds, including NICHOLE-I or ARB Check microalbumin Assessment & Plan (02/06/2019 3:15 PM CDT): Controlled on current medications. Assessment & Plan (10/21/2018 9:02 PM CDT): At goal on current medications. Assessment & Plan (06/06/2018 2:28 PM DIRECTOR STAFFING): Goal blood pressure is less than 140/85 Low salt diet recommended Daily aerobic exercise Continue current meds, including NICHOLE-I or ARB Assessment & Plan (12/22/2017 10:39 AM CDT): Controlled on current medications. Assessment & Plan (09/21/2017 2:12 PM CDT): Controlled on current medications. Assessment & Plan (06/21/2017 11:48 AM DIRECTOR STAFFING): Goal blood pressure is less than 140/85 Low salt diet recommended Daily aerobic exercise Continue current meds, including NICHOLE-I or ARB Nontoxic uninodular goiter 11/10/2013 Overview (09/29/2016): NONTOX UNINODULAR GOITER Assessment & Plan (09/02/2020 4:22 PM DIRECTOR STAFFING): Thyroid ultrasound performed today Right lower thyroid [...] update labs today. Verified that he uses [employer]. Aware to check results/results letter in [employer]. Will contact by phone if needed. UTD [...] Humalog Assessment & Plan (05/06/2023 9:22 AM DIRECTOR STAFFING): Hba1c was Lab Results Component Value Date [...] update labs today. Verified that he uses [employer]. Aware to check results/results letter in [employer]. Will contact by phone if needed. DM [...] sugars. Assessment & Plan (05/13/2022 10:20 AM DIRECTOR STAFFING): Chronic problem, stable per Treasure download. We [...] hypoglycemia Assessment & Plan (08/17/2021 4:38 PM DIRECTOR STAFFING): Hba1c was Lab Results Component Value Date [...] Metformin Assessment & Plan (09/02/2020 4:21 PM DIRECTOR STAFFING): Hba1c was Lab Results Component Value Date [...] exam. Assessment & Plan (05/10/2019 4:19 PM DIRECTOR STAFFING): Hba1c was Lab Results Component Value Date [...] exercise. Assessment & Plan (06/06/2018 2:39 PM DIRECTOR STAFFING): Hba1c was Lab Results Component Value Date [...] accountability. Assessment & Plan (06/21/2017 2:06 PM DIRECTOR STAFFING): Your Hba1c today was: 9.7 meaning a 3 month average sugar of : 237 Your goal hba1c is under 7.0 to prevent fur weigher diabetes complications ( eye , kidney and [...] 01/13/2022 09/16/2022 Body mass index 40.0-44.9, adult ([facility]) 01/13/2022 09/16/2022 Hyperlipidemia 09/21/2017 09/16/2022 Assessment & Plan (12/22/2017 10:39 AM CDT): LDL at goal on current dose of statin Assessment & Plan (09/21/2017 2:11 PM CDT): Continue statin therapy BMI 40.0-44.9, adult 06/21/2017 023 Assessment & Plan (09/02/2020 4:22 PM DIRECTOR STAFFING): Patient refusing the consideration for bariatric surgery Phentermine was started because elevated blood pressure Will try Wellbutrin Assessment & Plan (09/13/2019 2:22 PM CDT): Importance of following diet and exercising discussed. Assessment & Plan (02/06/2019 3:14 PM CDT): Recommend he try keto diet again Assessment & Plan (12/22/2017 10:39 AM CDT): Ketogenic diet reviewed Morbid obesity ([facility]) 06/21/2017 Assessment & Plan (04/06/2021 1:02 PM CDT): Worsening Low calorie diet discussed Start phentermine Assessment & Plan (12/21/2019 10:57 AM CDT): Continues to lose wt with focus on steady caloric intake , intermittent fasting, phentermine. Assessment & Plan (05/10/2019 4:18 PM DIRECTOR STAFFING): Diet and exercise were discussed. 1200 Calorie diet advised 45-60 min aerobic / resistance exercise most days of the week recommended. Start Phentermine Bariatric surgery medically indicated . Pt seems to agreed Referral sent to [facility] bariatric center. Assessment & Plan [...] on file Legal Sex Male 8:47 PM DIRECTOR STAFFING Gender Identity Male 12/29/2020 10:31 AM CDT [...] Author [facility](04/2020 12:07 PM DIRECTOR STAFFING) No Mariana Berg, RN Note: Patient will establish a comfort-function goal and identify the pain level that will allow the patient to perform desired activities and achieve an acceptable quality of life. Medical Devices Implanted Type Area News Production Supervisor Device Identifier Shelf Expiration Date Model / Serial / Lot Iad Orthopaedics 6191-1-010 Simplex P Radiopaque Full Dose Cement Bone Sterile - Sna - [id number] Implanted:Qty: 1 on 05/13/2021 by Harinder Orosco MD at [facility] Bone Cement Left: Shoulder [employer] 05/26/2023 6191-1-0 10 / NA / [id number] [employer] [id number] Aequalis Perform Cortiloc 60mm Peg Shoulder Large Component Latex Free - [id number] - [id number] Implanted:Qty: 1 on 05/13/2021 by Harinder Orosco MD at [facility] Other - see comments Left: Shoulder [employer] [id number] 08/13/2025 [id number] / [id number] / [employer] [id number] Head Perform Cocr Modular Humeral - [id number] - [id number] Implanted:Qty: 1 on 05/13/2021 by Harinder Orosco MD at [facility] Other - see comments Left: Shoulder [employer] [id number] 11/14/2025 [id number] / [id number] / [employer] [id number] Manufacturing Design Engineer Perform Centered Modular Humeral Head Ti - Sna - [id number] Implanted:Qty: 1 on 05/13/2021 by Harinder Orosco MD at [facility] Other - see comments Left: Shoulder [employer] [id number] 04/08/2026 [id number] / NA / [employer] [id number] Stem Perform Sz 3 Humeral - [id number] - [id number] Implanted:Qty: 1 on 05/13/2021 by Harinder Orosco MD at [facility] Other - see comments Left: Shoulder [employer] [id number] 09/18/2025 [id number] / [id number] / [employer] Xcela Power Port 8fr [id number] - [id number] Implanted:Qty: 1 on 10/23/2024 at [facility] Other - see comments [employer] 05/07/2029 [id number] / / [id number] Lt Thr Hip Explanted Type Area News Production Supervisor Device Identifier Shelf Expiration Date Model / Serial / Lot [employer]io Inc [id number] Guide Pin Perform 3.0 X 100mm - Sna - [id number] Explanted:Qty : 1 on 05/13/2021 by Harinder Orosco MD at [facility] Other - see comments Left: Shoulder [employer] [id number] / NA / Description:For fixation pur poses [...] (HCC) Metastatic malignant neoplasm, unspecified site (HCC) CA AN PROCEDURE PLACEHOLDER Routine 10/18/2024 8:28 AM CDT CA AN ELECTIVE ENDOTRACHEAL AIRWAY Routine 10/18/2024 8:28 [...] LAB BLOOD ORDERABLES Fin al Result JOB [facility] Department [place] [address] * (ABNORMAL) Differential, auto (11/26/2024 11:52 AM CDT) Neutrophil abs 6.05 1.50 - 6.50 K/cumm Comment:Testing performed by : [facility], [address] [place] [address] Lymphocyte abs 0.69(L) 0.80 - 3.30 K/cumm [facility] Comment:Testing performed by : [facility], [address] [place], [place] [phone] Monocyte abs 1.11(H) 0.20 - 0.80 K/cumm [facility] Comment:Testing performed by : [facility], [address] [place], [place] [phone] Eosinophil abs 0.08 0.00 - 0.50 K/cumm [facility] Comment:Testing performed by : [facility], [address] [place], [place] [id number] Basophil abs 0.04 0.00 - 0.10 K/cumm [facility] Comment:Testing performed by : [facility], [address] [place], [place] [phone] Neutrophil pct 76.0 % [facility] Comment: Interpretive Data Percent cell count reference ranges are not reported, since discordance with absolute values may lead to misinterpretation of CBC data. Current Interpretive Data was last revised on 2017. Testing performed by: [facility], [address] [place] [phone] Lymphocyte pct 8.6 % [facility] Comment: Interpretive Data Percent cell count reference ranges are not reported, since discordance with absolute values may lead to misinterpretation of CBC data. Current Interpretive Data was last revised on 2017. Testing performed by: [facility], [address] [place] [phone] Monocyte pct 13.9 % [facility] Comment: Interpretive Data Percent cell count reference ranges are not reported, since discordance with absolute values may lead to misinterpretation of CBC data. Current Interpretive Data was last revised on 2017. Testing performed by: [facility], [address] [place], [place] [phone] Eosinophil pct 1.0 % [facility] Comment: Interpretive Data Percent cell count reference ranges are not reported, since discordance with absolute values may lead to misinterpretation of CBC data. Current Interpretive Data was last revised on 2017. Testing performed by: [facility], [address] [place] [phone] Basophil pct 0.6 % JOB [facility] Comment: Interpretive Data Percent cell count reference ranges are not reported, since discordance with absolute values may lead to misinterpretation of CBC data. Current Interpretive Data was last revised on 2017. Testing performed by: [facility], [address] [place] [phone] Blood 11/26/2024 11:5 2 AM CDT 11/26/2024 11:57 AM CDT us Franklin Phelps MD PhD LAB BLOOD ORDERABLES Fin al Result JOB [facility] Department [place] [address] * (ABNORMAL) CBC with auto differential (11/26/2024 11:52 AM CDT) WBC 7.97 3.80 - 9.90 K/cumm Comment:Testing performed by : [facility], [address] [place] [phone] Hgb 9.2(L) 13.0 - 17.5 g/dL JOB MCCOLLUM Comment:Testing performed by : [facility], [address] [place] [address] Hct 28.1(L) 38.9 - 50.3 % JOB MCCOLLUM Comment:Testing performed by : [facility], [address] [place] [address] Plt 388 150 - 400 K/cumm JOB MCCOLLUM Comment:Testing performed by : [facility], [address] [place] [phone] MPV 6.6(L) 6.8 - 10.4 fL JOB MCCOLLUM Comment:Testing performed by : [facility], [address] [place], [place] [phone] RBC 3.45(L) 4.30 - 5.80 M/cumm [facility] Comment:Testing performed by : [facility], [address] [place], [place] [phone] MCV 81.4 81.3 - 96.4 fL [facility] Comment:Testing performed by : [facility], [address] [place], [place] [phone] MCH 26.6(L) 27.1 - 33.3 pg [facility]ERUBALDO [facility] Comment:Testing performed by : [facility] [facility], [address] [place], [place] [id number] MCHC 32.7 32.3 - 35.7 g/dL [facility] Comment:Testing performed by : [facility], [address] [place], [place] [phone] RDW CV 19.8(H) 11.1 - 14.9 % [facility] Comment:Testing performed by : [facility], [address] [place], [place] [phone] NRBC abs 0.00 0.00 - 0.01 K/cumm [facility] Comment:Testing performed by : [facility], [address] [place], [place] [phone] Blood 11/26/2024 11:5 2 AM CDT 11/26/2024 11:57 AM CDT us Franklin Phelps MD PhD LAB BLOOD ORDERABLES Fin al Result [facility] Department [place] [address] * Cancer antigen 19-9 (11/26/2024 11:52 AM [...] PhD LAB BLOOD ORDERABLES Fin al Result [facility] [place] [address] * (ABNORMAL) Comprehensive metabolic panel (11/26/2024 11:52 AM CDT) Sodium 134(L) 135 - 145 mmol/L Potassium, pl 3.9 3.3 - 4.9 mmol/L [facility] Chloride 99 97 - 110 mmol/L [facility] CO2 25 22 - 32 mmol/L [facility] Anion gap 10 2 - 15 mmol/L [facility] BUN 8 6 - 25 mg/dL [facility] Creatinine 0.80 0.80 - 1.30 mg/dL [facility] Glucose 332(H) 70 - 199 mg/dL [facility] Comment: Interpretive Data Fasting glucose >/= [...] 2022. Calcium 8.9 8.5 - 10.3 mg/dL [facility] Bilirubin, total 0.6 0.1 - 1.2 mg/dL [facility] Protein, pl 6.6 6.5 - 8.5 g/dL [facility] Albumin 3.4(L) 3.5 - 5.0 g/dL [facility] Alk phos 216(H) 40 - 130 Units/L [facility] ALT 32 7 - 55 Units/L [facility] AST 43 10 - 50 Units/L [facility] Blood 11/26/2024 11:5 2 AM CDT 11/26/2024 12:01 PM CDT Franklin Phelps MD PhD LAB BLOOD ORDERABLES Fin al Result Performing Organization Address [facility] de Phone Number [facility] [place] [address] * eGFR (11/12/2024 10:35 AM CDT) eGFR [...] ORDERABLES Fin al Result Performing Organization Address [facility] Co de Phone Number [facility] Department [place] [address] * (ABNORMAL) CBC with auto differential (11/12/2024 10:35 AM CDT) WBC 3.41(L) 3.80 - 9.90 K/cumm Comment:Testing performed by : [facility], [address] [place], [place] [phone] Hgb 8.8(L) 13.0 - 17.5 g/dL [facility] Comment:Testing performed by : [facility], [address] [place], [place] [phone] Hct 26.7(L) 38.9 - 50.3 % [facility] Comment:Testing performed by : [facility], [address] [place], [place] [phone] Plt 155 150 - 400 K/cumm [facility] Comment:Testing performed by : [facility], [address] [place], [place] [phone] MPV 7.1 6.8 - 10.4 fL [facility] Comment:Testing performed by : [facility], [address] [place], [place] [phone] RBC 3.31(L) 4.30 - 5.80 M/cumm [facility] Comment:Testing performed by : [facility], [address] [place] [address] MCV 80.9(L) 81.3 - 96.4 fL [facility] Comment:Testing performed by : [facility], [address] [place], [place] [phone] MCH 26.7(L) 27.1 - 33.3 pg [facility] Comment:Testing performed by : [facility], [address] [place] [address] MCHC 33.0 32.3 - 35.7 g/dL [facility] Comment:Testing performed by : [facility], [address] [place] [address] RDW CV 15.5(H) 11.1 - 14.9 % [facility] Comment:Testing performed by : [facility], [address] [place] [address] NRBC abs 0.00 0.00 - 0.01 K/cumm [facility] Comment:Testing performed by : [facility], [address] [place], [place] [phone] Blood 11/12/2024 10:3 5 AM CDT 11/12/2024 10:37 AM CDT us Franklin Phelps MD PhD LAB BLOOD ORDERABLES Fin al Result [facility] Department [place] [address] * Manual Differential (11/12/2024 10:35 AM CDT) Cells Counted 176 Comment:Testing performed by : [facility], [address] [place] [address] Neutrophil abs 2.28 1.50 - 6.50 K/cumm [facility] Comment:Testing performed by : [facility], [address] [place] [address] Lymphocyte abs 0.82 0.80 - 3.30 K/cumm [facility] Comment:Testing performed by : [facility], [address] [place] [address] Monocyte abs 0.20 0.20 - 0.80 K/cumm [facility] Comment:Testing performed by : [facility], [address] [place] [address] Eosinophil abs 0.10 0.00 - 0.50 K/cumm [facility] Comment:Testing performed by : [facility], [address] [place] [address] Basophil abs 0.03 0.00 - 0.10 K/cumm [facility] Comment:Testing performed by : [facility], [address] [place], [place] [phone] Neutrophil pct 67.0 % [facility] Comment: Interpretive Data Percent cell count reference ranges are not reported, since discordance with absolute values may lead to misinterpretation of CBC data. Current Interpretive Data was last revised on 2017. Testing performed by: [facility], [address] [place] [address] [place] [phone] Lymphocyte pct 24.0 % [facility] Comment: Interpretive Data Percent cell count reference ranges are not reported, since discordance with absolute values may lead to misinterpretation of CBC data. Current Interpretive Data was last revised on 2017. Testing performed by: [facility], [address] [place] [phone] Monocyte pct 6.0 % [facility] Comment: Interpretive Data Percent cell count reference ranges are not reported, since discordance with absolute values may lead to misinterpretation of CBC data. Current Interpretive Data was last revised on 2017. Testing performed by: [facility], [address] [place] [phone] Eosinophil pct 3.0 % [facility] Comment: Interpretive Data Percent cell count reference ranges are not reported, since discordance with absolute values may lead to misinterpretation of CBC data. Current Interpretive Data was last revised on 2017. Testing performed by: [facility], [address] [place] [phone] Basophil pct 1.0 % [facility] Comment: Interpretive Data Percent cell count reference ranges are not reported, since discordance with absolute values may lead to misinterpretation of CBC data. Current Interpretive Data was last revised on 2017. Testing performed by: [facility], [address] [place] [phone] RBC morphology Normal [facility] Comment:Testing performed by : [facility], [address] [place] [phone] Platelet estimate Adequate [facility] Comment:Testing performed by : [facility], [address] [place] [phone] Blood 11/12/2024 10:3 5 AM CDT 11/12/2024 10:37 AM CDT us Franklin Phelps MD PhD LAB BLOOD ORDERABLES Fin al Result [facility] Department [place] [address] * (ABNORMAL) Comprehensive metabolic panel (11/12/2024 10:35 AM CDT) Sodium 136 135 - 145 mmol/L Potassium, pl 4.0 3.3 - 4.9 mmol/L [facility] Chloride 100 97 - 110 mmol/L [facility] CO2 26 22 - 32 mmol/L [facility] Anion gap 10 2 - 15 mmol/L [facility] BUN 11 6 - 25 mg/dL [facility] Creatinine 0.82 0.80 - 1.30 mg/dL [facility] Glucose 258(H) 70 - 199 mg/dL [facility] Comment: Interpretive Data Fasting glucose >/= [...] 2022. Calcium 9.1 8.5 - 10.3 mg/dL [facility] Bilirubin, total 0.3 0.1 - 1.2 mg/dL [facility] Protein, pl 6.6 6.5 - 8.5 g/dL [facility] Albumin 3.5 3.5 - 5.0 g/dL [facility] Alk phos 217(H) 40 - 130 Units/L [facility] ALT 38 7 - 55 Units/L [facility] AST 35 10 - 50 Units/L [facility] Blood 11/12/2024 10:3 5 AM CDT 11/12/2024 10:38 AM CDT us Franklin Phelps MD PhD LAB BLOOD ORDERABLES Fin al Result [facility] Department [place] [address] * eGFR (11/05/2024 2:26 PM CDT) [facility] eGFR >90 >=60 mL/min/1. 73 m2 Comment: [...] ORDERABLES Fin al Result J[facility]OLL[facility] Department [place] [address] * (ABNORMAL) CBC with auto differential (11/05/2024 2:26 PM CDT) [facility] WBC 4.85 3.80 - 9.90 K/cumm Comment:Testing performed by : [facility], [address] [place] [phone] Hgb 8.8(L) 13.0 - 17.5 g/dL [facility] Comment:Testing performed by : [facility], [address] [place] [phone] Hct 26.0(L) 38.9 - 50.3 % [facility]LL[facility] Comment:Testing performed by : [facility], [address] [place] [address] Plt 239 150 - 400 K/cumm [facility] Comment:Testing performed by : [facility], [address] [place] [address] MPV 6.5(L) 6.8 - 10.4 fL [facility] Comment:Testing performed by : [facility], [address] [place] [address] RBC 3.29(L) 4.30 - 5.80 M/cumm [facility] Comment:Testing performed by : [facility], [address] [place] [address] MCV 79.0(L) 81.3 - 96.4 fL [facility] Comment:Testing performed by : [facility], [address] [place] [address] MCH 26.8(L) 27.1 - 33.3 pg [facility] Comment:Testing performed by : [facility], [address] [place] [address] MCHC 34.0 32.3 - 35.7 g/dL [facility] Comment:Testing performed by : [facility], [address] [place] [address] RDW CV 15.1(H) 11.1 - 14.9 % [facility] Comment:Testing performed by : [facility], [address] [place] [address] NRBC abs 0.00 0.00 - 0.01 K/cumm [facility] Comment:Testing performed by : [facility], [address] [place] [address] Blood 11/05/2024 2:26 PM CDT 11/05/2024 2:34 PM CDT us Franklin Phelps MD PhD LAB BLOOD ORDERABLES Fin al Result [facility] Department of Laboratories [place] [id number] * (ABNORMAL) Manual Differential (11/05/2024 2:26 PM CDT) Cells Counted 200 Comment:Testing performed by : [facility], [address] [place], [place] [phone] Neutrophil abs 3.83 1.50 - 6.50 K/cumm [facility] Comment:Testing performed by : [facility], [address] [place] [phone] Lymphocyte abs 0.63(L) 0.80 - 3.30 K/cumm [facility] Comment:Testing performed by : [facility], [address] [place], [place] [phone] Monocyte abs 0.15(L) 0.20 - 0.80 K/cumm [facility] Comment:Testing performed by : [facility], [address] [place], [place] [phone] Eosinophil abs 0.05 0.00 - 0.50 K/cumm [facility] Comment:Testing performed by : [facility], [address] [place] [phone] Basophil abs 0.10 0.00 - 0.10 K/cumm [facility] Comment:Testing performed by : [facility], [address] [place] [phone] Neutrophil pct 79.0 % [facility] Comment: Interpretive Data Percent cell count reference ranges are not reported, since discordance with absolute values may lead to misinterpretation of CBC data. Current Interpretive Data was last revised on 2017. Testing performed by: [facility], [address] [place] [phone] Lymphocyte pct 13.0 % [facility] Comment: Interpretive Data Percent cell count reference ranges are not reported, since discordance with absolute values may lead to misinterpretation of CBC data. Current Interpretive Data was last revised on 2017. Testing performed by: [facility], [address] [place], [place] [phone] Monocyte pct 3.0 % [facility] Comment: Interpretive Data Percent cell count reference ranges are not reported, since discordance with absolute values may lead to misinterpretation of CBC data. Current Interpretive Data was last revised on 2017. Testing performed by: [facility], [address] [place] [phone] Eosinophil pct 1.0 % [facility] M[facility]LL[facility] Comment: Interpretive Data Percent cell count reference ranges are not reported, since discordance with absolute values may lead to misinterpretation of CBC data. Current Interpretive Data was last revised on 2017. Testing performed by: [facility], [address] [place] [phone] Basophil pct 2.0 % [facility] MCC[facility]LL[facility] Comment: Interpretive Data Percent cell count reference ranges are not reported, since discordance with absolute values may lead to misinterpretation of CBC data. Current Interpretive Data was last revised on 2017. Testing performed by: [facility], [address] [place] [phone] Metamyelocyte pct 1.0(H) 0.0 - 0.0 % [facility] M[facility]LL[facility] Comment:Testing performed by : [facility], [address] [place] [phone] Myelocyte pct 2.0(H) 0.0 - 0.0 % [facility]OB MCC[facility]LL[facility] Comment:Testing performed by : [facility], [address] [place] [phone] Macrocytes 1+(A) JOB MCCOLLUM Comment:Testing performed by : [facility], [address] [place] [phone] Platelet estimate Adequate [facility] Comment:Testing performed by : [facility], [address] [place] [phone] Blood 11/05/2024 2:26 PM CDT 11/05/2024 2:34 PM CDT us Franklin Phelps MD PhD LAB BLOOD ORDERABLES Fin al Result [facility] Department [place] [address] * (ABNORMAL) Comprehensive metabolic panel (11/05/2024 2:26 PM CDT) Sodium 140 135 - 145 mmol/L Potassium, pl 3.7 3.3 - 4.9 mmol/L [facility] Chloride 104 97 - 110 mmol/L [facility] CO2 26 22 - 32 mmol/L [facility] Anion gap 10 2 - 15 mmol/L [facility] BUN 10 6 - 25 mg/dL [facility] Creatinine 0.78(L) 0.80 - 1.30 mg/dL [facility] Glucose 231(H) 70 - 199 mg/dL [facility] Comment: Interpretive Data Fasting glucose >/= [...] 2022. Calcium 9.0 8.5 - 10.3 mg/dL [facility] Bilirubin, total 0.2 0.1 - 1.2 mg/dL [facility] Protein, pl 6.7 6.5 - 8.5 g/dL [facility] Albumin 3.3(L) 3.5 - 5.0 g/dL [facility] Alk phos 234(H) 40 - 130 Units/L [facility] ALT 44 7 - 55 Units/L [facility] AST 36 10 - 50 Units/L [facility] Blood 11/05/2024 2:26 PM CDT 11/05/2024 2:34 PM CDT us Franklin Phelps MD PhD LAB BLOOD ORDERABLES Fin al Result [facility] Department [place] [address] * eGFR (10/29/2024 8:05 AM CDT) eGFR [...] PhD LAB BLOOD ORDERABLES Fin al Result [facility] [place] [address] * Differential, auto (10/29/2024 8:05 AM CDT) Pathologist [facility] Neutrophil abs 4.64 1.50 - 6.50 K/cumm Comment:Testing performed by : [facility], [facility] [place] [address] Lymphocyte abs 0.86 0.80 - 3.30 K/cumm [facility] Comment:Testing performed by : [facility], [facility] [place] [address] Monocyte abs 0.42 0.20 - 0.80 K/cumm [facility] Comment:Testing performed by : [facility], [address] [place] [phone] Eosinophil abs 0.13 0.00 - 0.50 K/cumm [facility] Comment:Testing performed by : [facility], [address] [place] [phone] Basophil abs 0.06 0.00 - 0.10 K/cumm [facility] Comment:Testing performed by : [facility], [address] [place] [phone] Neutrophil pct 76.0 % [facility] Comment: Interpretive Data Percent cell count reference ranges are not reported, since discordance with absolute values may lead to misinterpretation of CBC data. Current Interpretive Data was last revised on 2017. Testing performed by: [facility], [address] [place] [phone] Lymphocyte pct 14.1 % [facility] Comment: Interpretive Data Percent cell count reference ranges are not reported, since discordance with absolute values may lead to misinterpretation of CBC data. Current Interpretive Data was last revised on 2017. Testing performed by: [facility], [address] [place] [phone] Monocyte pct 6.8 % [facility] Comment: Interpretive Data Percent cell count reference ranges are not reported, since discordance with absolute values may lead to misinterpretation of CBC data. Current Interpretive Data was last revised on 2017. Testing performed by: [facility], [address] [place] [phone] Eosinophil pct 2.1 % [facility] Comment: Interpretive Data Percent cell count reference ranges are not reported, since discordance with absolute values may lead to misinterpretation of CBC data. Current Interpretive Data was last revised on 2017. Testing performed by: [facility], [address] [place] [phone] Basophil pct 1.0 % [facility] Comment: Interpretive Data Percent cell count reference ranges are not reported, since discordance with absolute values may lead to misinterpretation of CBC data. Current Interpretive Data was last revised on 2017. Testing performed by: [facility], [address] [place] [address] Blood 10/29/2024 8:05 AM CDT 10/29/2024 8:10 AM CDT us Franklin Phelps MD PhD LAB BLOOD ORDERABLES Fin al Result [facility] Department [place] [address] * (ABNORMAL) CBC with auto differential (10/29/2024 8:05 AM CDT) WBC 6.10 3.80 - 9.90 K/cumm Comment:Testing performed by : [facility], [address] [place] [address] Hgb 8.6(L) 13.0 - 17.5 g/dL J[facility] MCC[facility]LL[facility] Comment:Testing performed by : [facility], [address] [place] [address] Hct 26.0(L) 38.9 - 50.3 % JOB MCC[facility] Comment:Testing performed by : [facility], [address] [place] [address] Plt 357 150 - 400 K/cumm JOB MCCOLLUM Comment:Testing performed by : [facility], [address] [place] [address] MPV 6.9 6.8 - 10.4 fL [facility] M[facility] Comment:Testing performed by : [facility], [address] [place] [address] RBC 3.20(L) 4.30 - 5.80 M/cumm JOB MCCOLLUM Comment:Testing performed by : [facility], [address] [place] [address] MCV 81.3 81.3 - 96.4 fL JOB MCCOLLUM Comment:Testing performed by : [facility], [address] [place] [address] MCH 26.8(L) 27.1 - 33.3 pg [facility] M[facility] Comment:Testing performed by : [facility], [address] [place] [phone] MCHC 33.0 32.3 - 35.7 g/dL [facility] Comment:Testing performed by : [facility], [address] [place] [phone] RDW CV 14.9 11.1 - 14.9 % [facility] Comment:Testing performed by : [facility], [address] [place] [phone] NRBC abs 0.00 0.00 - 0.01 K/cumm [facility] Comment:Testing performed by : [facility], [address] [place] [phone] Blood 10/29/2024 8:05 AM CDT 10/29/2024 8:10 AM CDT us Franklin Phelps MD PhD LAB BLOOD ORDERABLES Fin al Result [facility] [place] [address] * (ABNORMAL) Comprehensive metabolic panel (10/29/2024 8:05 AM CDT) Sodium 138 135 - 145 mmol/L Potassium, pl 4.3 3.3 - 4.9 mmol/L [facility] Chloride 102 97 - 110 mmol/L [facility] CO2 27 22 - 32 mmol/L [facility] Anion gap 9 2 - 15 mmol/L [facility] BUN 12 6 - 25 mg/dL [facility] Creatinine 0.82 0.80 - 1.30 mg/dL [facility] Glucose 201(H) 70 - 199 mg/dL [facility] Comment: Interpretive Data Fasting glucose >/= [...] Calcium 9.2 8.5 - 10.3 mg/dL [facility] Bilirubin, total 0.3 0.1 - 1.2 mg/dL [facility] Protein, pl 6.9 6.5 - 8.5 g/dL [facility] Albumin 3.2(L) 3.5 - 5.0 g/dL [facility] Alk phos 299(H) 40 - 130 Units/L [facility] ALT 43 7 - 55 Units/L [facility] AST 27 10 - 50 Units/L [facility] Blood 10/29/2024 8:05 AM CDT 10/29/2024 8:09 AM CDT Franklin Phelps MD PhD LAB BLOOD ORDERABLES Fin al Result [facility] [place] [address] * SCAN - PATHOLOGY (10/24/2024 11:55 AM [...] completed, removal can be scheduled by calling [facility] - [phone] [facility] - [phone] Dictated by: Simone Schrader M.D. The radiology [...] was obtained. Prior to beginning the procedure, [place] Protocol was used to confirm the patient's [...] was obtained. Prior to beginning the procedure, [place] Protocol was used to confirm the patient's [...] completed, removal can be scheduled by calling [facility] [facility] - [phone] [facility] - [phone] Dictated by: Simone Schrader M.D. The radiology attending physician has personally reviewed this study, and had reviewed and/or edited this written report and agrees with it. Electronically signed by: Peter Silver M.D. us Franklin Phelps MD PhD IMG IR PROCEDURES Final Result * CA AN ELECTIVE ENDOTRACHEAL AIRWAY, CA AN PROCEDURE PLACEHOLDER (10/18/2024 8:28 AM CDT) Narrative Radha Rutherford CRNA - 10/18/2024 8:28 AM CDT Radha Rutherford CRNA 10/18/2024 8:29 AM Airway Patient location: OR Urgency: elective Date/time: 10/18/2024 8:20 AM Indications for airway management: anesthesia and airway protection Difficult airway: no Staff: Placed by: RELIGIOUS EDUCATION TEACHER: Radha Rutherford CRNA Emergent airway documentation: Risks [...] - 10/18/2024 8:13 AM CDT GI ENDOSCOPY [place] Patient Name: Oc Foster Procedure Date: 10/18/2024 8:13 AM Date of : 1965 Admit Type: Outpatient Age: 59 Gender: Male Attending MD: Arabella Painting M.D. Room: [facility] ENDOSCOPY ROOM 9 Note Status: Finalized Procedure: [...] passed under direct vision. The PCF [id number] endoscope was introduced through the mouth, and [...] AM CDT 10/18/2024 7:42 AM CDT Result [facility] Heidi Montes De Oca MD LAB POCT ORDERABLES - DEVICE Fin al Result Performing Organization Address [facility] [place] [address] * GI - RESULT (10/16/2024 2:25 PM CDT) Anatomical Region Laterality Modality Other Provider Scanning Final Result * -Miscellaneous Molecular Send-out Request (10/15/2024 4:51 PM CDT) Result 1 Test Name: Tempus xT Specimen Type: PB Result: See attached scanned report for results. Comment:Credited, duplicate test. Test name Tempus xT [facility] Blood 10/15/2024 4:51 PM CDT 10/16/2024 3:19 PM CDT Result [facility] Franklin Phelps MD PhD LAB GENETIC TESTING [place] [facility] Result Performing Organization Address [facility] [place] [address] * DPYD full gene sequencing -Miscellaneous Molecular Send-out Request (10/15/2024 4:50 PM CDT) Result 1 Test Name: Dihydropyrimidine Dehydrogenase Gene Full Sequencing ([place]) Specimen Type: PB Result: See attached scanned report for results. Test name Dihydropyrimidine Dehydrogenase Gene Full Sequencing ([place]) [facility] Blood 10/15/2024 4:50 PM CDT 10/16/2024 11:27 AM CDT Narrative [facility] - 10/22/2024 11:49 AM CDT Test Requested:->DPYD full gene sequencing Franklin Phelps MD PhD LAB GENETIC TESTING [place] [facility] Result Performing Organization Address [facility] Co de Phone Number JOB MCCOLLUM [facility] Department [place] [address] * eGFR (10/15/2024 4:50 PM CDT) eGFR [...] ORDERABLES Fin al Result Performing Organization Address [facility] Co de Phone Number JOB [facility] Department [place] [address] * Differential, auto (10/15/2024 4:50 PM CDT) Neutrophil abs 5.78 1.50 - 6.50 K/cumm Comment:Testing performed by : [facility], [address] [place] [phone] Lymphocyte abs 0.89 0.80 - 3.30 K/cumm JOB [facility] Comment:Testing performed by : [facility], [address] [place] [phone] Monocyte abs 0.58 0.20 - 0.80 K/cumm [facility] Comment:Testing performed by : [facility], [address] [place] [phone] Eosinophil abs 0.07 0.00 - 0.50 K/cumm [facility] Comment:Testing performed by : [facility], [address] [place] [phone] Basophil abs 0.06 0.00 - 0.10 K/cumm [facility] Comment:Testing performed by : [facility], [address] [place] [phone] Neutrophil pct 78.3 % [facility] Comment: Interpretive Data Percent cell count reference ranges are not reported, since discordance with absolute values may lead to misinterpretation of CBC data. Current Interpretive Data was last revised on 2017. Testing performed by: [facility], [address] [place] [phone] Lymphocyte pct 12.1 % [facility] Comment: Interpretive Data Percent cell count reference ranges are not reported, since discordance with absolute values may lead to misinterpretation of CBC data. Current Interpretive Data was last revised on 2017. Testing performed by: [facility], [address] [place] [phone] Monocyte pct 7.9 % [facility] Comment: Interpretive Data Percent cell count reference ranges are not reported, since discordance with absolute values may lead to misinterpretation of CBC data. Current Interpretive Data was last revised on 2017. Testing performed by: [facility], [address] [place] [phone] Eosinophil pct 1.0 % [facility] Comment: Interpretive Data Percent cell count reference ranges are not reported, since discordance with absolute values may lead to misinterpretation of CBC data. Current Interpretive Data was last revised on 2017. Testing performed by: [facility], [address] [place] [phone] Basophil pct 0.7 % [facility] Comment: Interpretive Data Percent cell count reference ranges are not reported, since discordance with absolute values may lead to misinterpretation of CBC data. Current Interpretive Data was last revised on 2017. Testing performed by: [facility], [address] [place] [phone] Blood 10/15/2024 4:50 PM CDT 10/15/2024 4:54 PM CDT Franklin Phelps MD PhD LAB BLOOD ORDERABLES Fin al Result Performing Organization Address [facility] Co de Phone Number [facility] Department [place] [address] * (ABNORMAL) Iron profile w/ IBC (10/15/2024 4:50 PM CDT) Pathologist [facility] Iron 21(L) 50 - 150 mcg/dL TIBC 163(L) 250 - 400 mcg/dL [facility] Transferrin saturation 13(L) 20 - 50 % [facility] Blood 10/15/2024 4:50 PM CDT 10/15/2024 5:13 PM CDT Franklin Phelps MD PhD LAB BLOOD ORDERABLES Fin al Result Performing Organization Address [facility] de Phone Number [facility] Department [place] [address] * (ABNORMAL) CBC with auto differential (10/15/2024 4:50 PM CDT) Pathologist [facility] WBC 7.38 3.80 - 9.90 K/cumm Comment:Testing performed by : [facility], [address] [place] [phone] Hgb 9.3(L) 13.0 - 17.5 g/dL [facility] Comment:Testing performed by : [facility], [address] [place] [phone] Hct 27.7(L) 38.9 - 50.3 % [facility] Comment:Testing performed by : [facility], [address] [place] [address] Plt 526(H) 150 - 400 K/cumm [facility] Comment:Testing performed by : [facility], [address] [place] [address] MPV 6.9 6.8 - 10.4 fL [facility] Comment:Testing performed by : [facility], [address] [place] [address] RBC 3.38(L) 4.30 - 5.80 M/cumm [facility] Comment:Testing performed by : [facility], [address] [place] [address] MCV 82.1 81.3 - 96.4 fL [facility] Comment:Testing performed by : [facility], [address] [place] [address] MCH 27.6 27.1 - 33.3 pg CERUBALDO [facility] Comment:Testing performed by : [facility], [address] [place] [address] MCHC 33.7 32.3 - 35.7 g/dL [facility]ER[facility] Comment:Testing performed by : [facility], [address] [place] [address] RDW CV 14.2 11.1 - 14.9 % [facility]ER[facility] Comment:Testing performed by : [facility], [address] [place] [address] NRBC abs 0.00 0.00 - 0.01 K/cumm [facility] Comment:Testing performed by : [facility], [address] [place] [address] Blood 10/15/2024 4:50 PM CDT 10/15/2024 4:54 PM CDT us Franklin Phelps MD PhD LAB BLOOD ORDERABLES Fin al Result [facility] Department [place] [address] * Cancer antigen 19-9 (10/15/2024 [...] ORDERABLES Fin al Result Performing Organization Address [facility] de Phone Number [facility] [place] [address] * aPTT (10/15/2024 4:50 PM CDT) Pathologist [facility] aPTT 36 28 - 38 sec Comment: Interpretive Data Heparin therapeutic range: 66.0 - 100.0 seconds. Range based on correlation with therapeutic heparin activity range of 0.3 - 0.7 Units/mL. Current interpretive data was last revised on 2023. Blood 10/15/2024 4:50 PM CDT 10/15/2024 5:12 PM CDT Result [facility] Franklin Phelps MD PhD LAB BLOOD ORDERABLES Fin al Result Performing Organization Address [facility] de Phone Number [facility] [place] [address] * (ABNORMAL) Protime-INR (10/15/2024 4:50 PM CDT) Pathologist [facility] PT 15.9(H) 9.7 - 13.0 sec INR 1.46(H) 0.90 - 1.20 [facility] Comment: Interpretive data Oral anticoagulant therapeutic ranges: Venous thromboembolism prophylaxis or treatment: 2.0-3.0 CARDIOLOGY Standard range: 2.0-3.0 High-intensity range: 2.5-3.5 Refer to indication-specific guidelines for appropriate target ranges for prosthetic heart valve replacement. Current interpretive data was last revised on 2019. Blood 10/15/2024 4:50 PM CDT 10/15/2024 5:12 PM CDT Result [facility] Franklin Phelps MD PhD LAB BLOOD ORDERABLES Fin al Result Performing Organization Address [facility] de Phone Number [facility] [place] [address] * (ABNORMAL) Ferritin (10/15/2024 4:50 PM CDT) Ferritin 608(H) 30 - 400 ng/mL Blood 10/15/2024 4:50 PM CDT 10/15/2024 5:13 PM CDT Result [facility] Franklin Phelps MD PhD LAB BLOOD ORDERABLES Fin al Result Performing Organization Address [facility] Phone Number [facility] [place] [address] * CEA (10/15/2024 4:50 PM CDT) Pathologist [facility] CEA 2.3 <=5.0 ng/mL Comment: Interpretive Data: Reference Range: Non-Smokers: 0.0 5.0 ng/mL Smokers: 0.0 6.5 ng/mL The Lexi CEA assay procedure was used. Results from different manufacturers or methods may not be comparable. Serial testing should be performed using the same method. Current interpretive data was last revised 2021. Blood 10/15/2024 4:50 PM CDT 10/15/2024 5:13 PM CDT Result [facility] Franklin Phelps MD PhD LAB BLOOD ORDERABLES Fin al Result Performing Organization Address [facility] Co de Phone Number [facility] [place] [address] * (ABNORMAL) Comprehensive metabolic panel (10/15/2024 4:50 PM CDT) Sodium 142 135 - 145 mmol/L Potassium, pl 4.3 3.3 - 4.9 mmol/L [facility] Chloride 99 97 - 110 mmol/L [facility] CO2 31 22 - 32 mmol/L [facility] Anion gap 12 2 - 15 mmol/L [facility] BUN 15 6 - 25 mg/dL [facility] Creatinine 1.04 0.80 - 1.30 mg/dL [facility] Glucose 178 70 - 199 mg/dL [facility] Comment: Interpretive Data Fasting glucose >/= [...] 2022. Calcium 9.5 8.5 - 10.3 mg/dL [facility] Bilirubin, total 0.5 0.1 - 1.2 mg/dL [facility] Protein, pl 7.4 6.5 - 8.5 g/dL [facility] Albumin 2.9(L) 3.5 - 5.0 g/dL [facility] Alk phos 305(H) 40 - 130 Units/L [facility] ALT 34 7 - 55 Units/L [facility] AST 40 10 - 50 Units/L [facility] Blood 10/15/2024 4:50 PM CDT 10/15/2024 5:13 PM CDT us Franklin Phelps MD PhD LAB BLOOD ORDERABLES Fin al Result [facility] Department [place] [address] * Tempus xT DNA and RNA (10/15/2024 [...] PM CDT [facility] Portal [email or web address] [id number] 10/30/2024 3:24 PM CDT [facility] Comment:Tempus [...] Status: Consensus Evidence ID: NCCN KDB Variant: [id number] Label: FDA Off Label FDA Approved?: Yes On label?: No 10/30/2024 3:24 PM CDT [facility] Trial Count 3 10/30/2024 3:24 PM CDT [facility]: Clinical Trial Match 1 Clinical Trial NCT ID: [id number] Clinical Trial Title: A Study of APG-115 in as a Monotherapy or Combination With Pembrolizumab in Patients With Metastatic Melanomas or Advanced Solid Tumors Clinical Trial URL: [email or web address] rials.gov/ct2/[email or web address] Clinical Phase: Phase 1/Phase 2 Clinical Trial Matches: PEDRO p.R2993* mutation Clinical Trial Distance and Location: [address] [place], [place] 10/30/2024 3:24 PM CDT [facility]us: Clinical Trial Match 2 Clinical Trial NCT ID: [id number] Clinical Trial Title: Tumor-agnostic Precision Immuno-oncology and Somatic Targeting Rational for You (TAPISTRY) Platform Study Clinical Trial URL: [email or web address]://clinicalt rials.gov/ct2/[email or web address] [email or web address] Clinical Phase: Phase 2 Clinical Trial Matches: PEDRO p.R2993* mutation Clinical Trial Distance and Location: [address] [place], [place] 10/30/2024 3:24 PM CDT [facility] Tempus: Clinical Trial Match 3 Clinical Trial NCT ID: [id number] Clinical Trial Title: A Study of PARG Inhibitor UNZ766 in Participants With Advanced Solid Tumors Clinical Trial URL: [email or web address]://clinicalt rials.gov/ct2/[email or web address] [email or web address] Clinical Phase: Phase 1 Clinical Trial Matches: PEDRO p.R2993* mutation Clinical Trial Distance and Location: [address] [place], [place] 10/30/2024 3:24 PM CDT [facility] [...] ed Result - Final [facility] [address] [facility], [address] [place] [address], [facility] [phone] [facility] [address] [facility], [address] [place] [address] * Surgical pathology (10/11/2024 10:47 AM CDT) Tissue (Miscellaneous) 10/11/2024 10:47 AM CDT 10/11/2024 10:47 AM CDT Narrative [facility] - 10/12/2024 3:36 PM CDT EPIC results best viewed via link to PDF [facility] [address], [address], [place] [address] Note to Patients: This report [...] SURGICAL PATHOLOGY REPORT * Consult Report * [facility] is providing an additional review of previously collected tissue. FINAL WITH ADDENDUM Patient Name: OC FOSTER Address: [address] [place], [place] [id number] Gender: M : 1965 (Age: 59) Hospital #: [id number] Patient Type: WUIO Location: UNKNOWN Taken: 10/11/2024 Received: 10/11/2024 Accessioned: 10/11/2024 Reported: 10/12/2024 Physician(s): MD Franklin George M.D. [facility] Department of Pathology [facility] [address] [address] P: [phone] F: [phone] Diagnosis: Consult material received from [place], [place] (OSC: [id number]; 10/03/2024). Liver, left lobe mass, biopsy - [...] Received for review are thirteen slides labeled [id number], accompanied by a corresponding pathology report. The material originates from [place], [place]. Selected slide(s) may be digitally scanned for our files, and all materials are returned to the referring institution, along with a copy of our final report. Addenda/Procedures Addendum Ordered: 10/18/2024 Status: Signed Out Addendum Complete: 10/18/2024y: Ally Torres MD, PHDAddendum Signed Out: 10/23/2024 Addendum Comment Additionally received 8 unstained slides labeled [id number] for additional materials on [id number]. The material originates from [place], [place]. By this signature, I attest that [...] the Department of Pathology and Immunology at [facility], [address] [place] [address] CLIA # [id number] The performance characteristics of the testing cited in this report (if any) were determined by the [facility] Department of Pathology and Immunology [facility], as part of an ongoing quality assurance qa lab analyst program and in compliance with federally [...] characteristics determined by the [facility], [facility] Department of Pathology and Immunology. It has not been cleared or approved by the U.S. Food and Drug Administration. Any test designated as LDT was developed and its performance characteristics determined by [facility]. It has not been cleared or approved by the FDA. This test is used for clinical purposes and should not be regarded as investigational or for research. Report images and/or scanned reports, if included, only viewable in PDF version of report. Heidi Montes De Oca MD LAB PATHOLOGY ORDERABLES Final R esult [facility] [address] [address] * SCAN - PATHOLOGY (10/08/2024 3:23 PM [...] images may or may not represent the [place] source data set and thus may contain changes that may lower the accuracy of this second-opinion interpretation. Electronically signed by: Abel De La Paz M.D. Narrative 10/05/2024 3:22 PM CDT EXAMINATION: RADIOLOGY CONSULTATION ON OUTSIDE IMAGING STUDY STUDY INITIALLY PERFORMED: 09/30/2024 at [facility]. TYPE OF STUDY: Multiple CT images of [...] IMAGING STUDY STUDY INITIALLY PERFORMED: 09/30/2024 at [facility]. TYPE OF STUDY: Multiple CT images of [...] images may or may not represent the [place] source data set and thus may contain [...] CDT 04/06/2024 2:41 PM CDT Haily Siddiqi MULTIPLE GAMES DEALER LAB URINE ORDERABLES [place] Result [address]OB [id number] [address] Department [place] [address] * Lipid panel (04/06/2024 9:50 AM CDT) [...] AM CDT 04/06/2024 2:41 PM CDT Result [facility] Haily Siddiqi MULTIPLE GAMES DEALER LAB BLOOD ORDERABLES [place] Result [place] [id number] [address] Department [place] [address] * (ABNORMAL) POCT hemoglobin A1c (04/06/2024 9:05 AM CDT) Hemoglobin A1C, POC 8.7 4.0 - 5.6 % Blood 04/06/2024 9:05 AM CDT Result [facility] Haily Siddiqi M[employer]IP[employer] DEALER POINT OF CARE TEST ORDERA BLES Final Result * (ABNORMAL) DIABETES EYE EXAM (01/17/2024 8:11 AM CDT) Result [facility] Historical Provider HEALTH MAINTENANCE Final Result * Diabetic Foot Exam (12/12/2019) Result [facility] Historical Provider HEALTH MAINTENANCE Final Result * PSA screen (10/11/2017 11:35 AM CDT) SCRIBED PSA, Serum 1.5 0.0 - 4.0 [facility] Blood specimen (specimen) Result [facility] Historical Provider LAB BLOOD ORDERABLES Edit ed Result - Final [facility] from Last 3 Months or Most Recently Relevant to Health Maintenance Insurance [facility] CHO[facility] PLUS [facility] PLUS [facility] PLUS [facility] PLUS Advance Directives For more information, please contact: [phone] * Full Code (Latest Code Status on File) Date Activated Date Inactivated Comments 10/18/2024 7:56 AM 10/24/2024 1:23 PM * Full Code Date Activated Date Inactivated Comments 05/13/2021 5:01 PM 05/14/2021 2:11 PM Care Teams [employer] Test Engineer Relationship Specialty Start Date End Date Vu Condon DO [address] [address] PCP - General Internal Medicine 10/04/24 Franklin Phelps MD PhD [address] [place] [address] Medical Oncologist/Client Hr Manager Medical Oncology 10/25/24
--- OUTSIDE RECORDS SUMMARY | 2024-11-30 21:32 | XMS_ITS ---
Author Organization [facility] Address [address] [place] [address] Care Team Providers Care Experimental Rocket Sled Mechanic Name Role Phone Vu Condon Primary Care Provider [phone] Franklin Phelps MD PhD Unavailable [phone] Active Problems Problem Noted Date Diagnosed Date [...] Phentermine Assessment & Plan (05/06/2023 9:22 AM BILLING ANALYST): Start phentermine Diet and exercise Assessment & Plan (09/16/2022 11:32 AM CDT): Chronic problem. Discussed healthy diet and importance of regular physical activity (20- 30min/day, 150min/wk). SRI on CPAP 05/07/2021 Primary osteoarthritis of left shoulder 04/14/20 21 Overview (04/14/2021): Added automatically from request for surgery [id number] Diabetic polyneuropathy asso ciated with type 2 [...] Atovastatin 20mg. Last lipid panel: 01/13/23 LDL=93, PR=685. No changes at this time. Will update lipid panel today. Verified that he uses [employer]. Aware to check results/results letter in [facility]. Will contact by phone if needed. Assessment & Plan (01/13/2023 10:12 AM CDT): Chronic problem, controlled on current Atovastatin 20mg. Last lipid panel: 01/13/22 LDL=80, TG=95. No changes at this time. Will update lipid panel today. Verified that he uses [facility]. Aware to check results/results letter in [facility]. Will contact by phone if needed. Assessment & Plan (09/16/2022 11:34 AM CDT): Chronic problem, controlled on current Atovastatin 20mg. Last lipid panel: 01/13/22 LDL=80, TG=95. No changes at this time. Assessment & Plan (05/13/2022 10:18 AM BILLING ANALYST): Chronic problem. On statin therapy, no changes. Assessment & Plan (01/13/2022 9:39 AM CDT): Chronic, well controlled Low fat Low cholesterol diet Exercise Continue statin therapy Check lipid profile Assessment & Plan (08/17/2021 4:39 PM BILLING ANALYST): Chronic, well controlled Continue current meds Assessment & Plan (12/21/2019 10:56 AM CDT): At goal on current medications. Continue statin therapy. Assessment & Plan (09/13/2019 2:22 PM CDT): At goal on current medications. Continue statin therapy. Assessment & Plan (05/10/2019 4:20 PM BILLING ANALYST): Goal of treatment , LDL cholesterol less [...] panel Assessment & Plan (06/06/2018 2:28 PM BILLING ANALYST): Goal of treatment , LDL cholesterol less [...] update labs today. Verified that he uses [employer]. Aware to check results/results letter in [facility]. Will contact by phone if needed. Assessment & Plan (01/13/2023 10:08 AM CDT): Chronic problem, controlled on current valsartan-hctz 160-25mg daily. No changes at this time. Will update labs today. Verified that he uses [facility]. Aware to check results/results letter in mychart. Will contact by phone if needed. Assessment & Plan (09/16/2022 11:32 AM CDT): Chronic problem, controlled on current valsartan-hctz 160-25mg daily. No changes at this time. Assessment & Plan (05/13/2022 10:18 AM BILLING ANALYST): Controlled on current medications, no changes. Assessment & Plan (01/13/2022 9:40 AM CDT): Chronic, well controlled Continue current meds Check MA Assessment & Plan (12/21/2019 10:55 AM CDT): Controlled on current medications. Continue plan. Assessment & Plan (09/13/2019 2:22 PM CDT): Controlled on current medications. Continue plan. Assessment & Plan (05/10/2019 4:19 PM BILLING ANALYST): Goal blood pressure is less than 140/85 Low salt diet recommended Daily aerobic exercise Continue current meds, including NICHOLE-I or ARB Check microalbumin Assessment & Plan (02/06/2019 3:15 PM CDT): Controlled on current medications. Assessment & Plan (10/21/2018 9:02 PM CDT): At goal on current medications. Assessment & Plan (06/06/2018 2:28 PM BILLING ANALYST): Goal blood pressure is less than 140/85 Low salt diet recommended Daily aerobic exercise Continue current meds, including NICHOLE-I or ARB Assessment & Plan (12/22/2017 10:39 AM CDT): Controlled on current medications. Assessment & Plan (09/21/2017 2:12 PM CDT): Controlled on current medications. Assessment & Plan (06/21/2017 11:48 AM BILLING ANALYST): Goal blood pressure is less than 140/85 Low salt diet recommended Daily aerobic exercise Continue current meds, including NICHOLE-I or ARB Nontoxic uninodular goiter 11/10/2013 Overview (09/29/2016): NONTOX UNINODULAR GOITER Assessment & Plan (09/02/2020 4:22 PM BILLING ANALYST): Thyroid ultrasound performed today Right lower thyroid [...] update labs today. Verified that he uses [facility]. Aware to check results/results letter in [employer] [facility]. Will contact by phone if needed. UTD [...] Humalog Assessment & Plan (05/06/2023 9:22 AM BILLING ANALYST): Hba1c was Lab Results Component Value Date [...] update labs today. Verified that he uses [facility]. Aware to check results/results letter in [employer] [facility]. Will contact by phone if needed. DM [...] sugars. Assessment & Plan (05/13/2022 10:20 AM BILLING ANALYST): Chronic problem, stable per [facility] download. We [...] hypoglycemia Assessment & Plan (08/17/2021 4:38 PM BILLING ANALYST): Hba1c was Lab Results Component Value Date [...] Metformin Assessment & Plan (09/02/2020 4:21 PM BILLING ANALYST): Hba1c was Lab Results Component Value Date [...] exam. Assessment & Plan (05/10/2019 4:19 PM BILLING ANALYST): Hba1c was Lab Results Component Value Date [...] exercise. Assessment & Plan (06/06/2018 2:39 PM BILLING ANALYST): Hba1c was Lab Results Component Value Date [...] accountability. Assessment & Plan (06/21/2017 2:06 PM BILLING ANALYST): Your Hba1c today was: 9.7 meaning a 3 month average sugar of : 237 Your goal hba1c is under 7.0 to prevent penitentiary diabetes complications ( eye , kidney and [...] 023 Assessment & Plan (09/02/2020 4:22 PM BILLING ANALYST): Patient refusing the consideration for bariatric surgery Phentermine was started because elevated blood pressure Will try Wellbutrin Assessment & Plan (09/13/2019 2:22 PM CDT): Importance of following diet and exercising discussed. Assessment & Plan (02/06/2019 3:14 PM CDT): Recommend he try keto diet again Assessment & Plan (12/22/2017 10:39 AM CDT): Ketogenic diet reviewed Morbid obesity ([facility]) 06/21/2017 Assessment & Plan (04/06/2021 1:02 PM CDT): Worsening Low calorie diet discussed Start phentermine Assessment & Plan (12/21/2019 10:57 AM CDT): Continues to lose wt with focus on steady caloric intake , intermittent fasting, phentermine. Assessment & Plan (05/10/2019 4:18 PM BILLING ANALYST): Diet and exercise were discussed. 1200 Calorie diet advised 45-60 min aerobic / resistance exercise most days of the week recommended. Start Phentermine Bariatric surgery medically indicated . Pt seems to agreed Referral sent to [facility] bariatric center. Assessment & Plan (10/21/2018 9:02 PM CDT): Importance of following diet and exercising discussed. Assessment & Plan (09/21/2017 2:12 PM CDT): Importance of following diet and exercising discussed.
--- OUTSIDE RECORDS SUMMARY | 2024-11-30 21:32 | XMS_ITS | Clinical Summary ---
Author Organization [facility] Address [address] [place] [address] Care Team Providers Care Packing Inspector Name Role Phone WinstonJarekDurankarlos Nicole DO Primary Care Provider [phone] Source Comments [facility],non-owned Affiliates and Associated Physician Practices is amultiple site organization consisting of ambulatory clinics and hospital sitesin [place], [place], [place] and [place]. This disclosure is being madepursuant to the Care Everywhere program and may not contain all information available regarding this patient. Last updated 18.[facility] Allergies Active Allergy Reactions Criticality Noted Date [...] on file Legal Sex Male 11:42 AM DECK SPECIALIST Gender Identity Not on file Sexual Orientation [...] patient's age to complete this topic Insurance [facility] CARE SELF PAY NO INSURANCE Member Subscriber Plan / Payer (Ef fective for All Dates) Name:Thien Hannon Member ID:Not on file Relation to Subscriber:Not on file Name:THIEN HANNON Subscriber ID:Not on file (Home) Address: [address] [place] [address] Payer ID:Not on file Group ID:Not on file Type:Self Pay Address: [facility] [place] [facility] Care Teams Packing Inspector Relationship Specialty Start Date End Date Duran Montero DO [address] [place] [address] PCP - General 07/14/12
--- OUTSIDE RECORDS SUMMARY | 2024-11-30 21:33 | XMS_ITS | CONTINUITY OF CARE DOCUMENT ---
Author Name aaron walker Address Unknown Organization [facility] Address [address] [place] [address] Phone [phone] Care Team Providers Care Gallery Manager Name Role Phone RADHA WANG MD Unavailable RADHA WANG MD Unavailable [phone] INSURANCE PROVIDERS Payer name Policy type / Coverage type [place] red libertarian ID [facility] Other [id number]
--- OUTSIDE RECORDS SUMMARY | 2024-11-30 21:33 | XMS_ITS | Encounter Summary ---
Author Organization [facility] Address [address] [place] [address] Phone Care Team Providers Care Tunnel Drier Operator Name Role Phone Duran Montero MD Primary Care Provider [phone] Vu Condon DO Primary Care Provider [phone] Heidi Montes De Oca MD Unavailable Franklin Phelps MD PhD Unavailable [phone] Encounter Details Date Type Department Care Team [...] on file Legal Sex Male 8:47 PM PARAPROFESSIONAL EDUCATION ASSISTANT Gender Identity Male 12/29/2020 10:31 AM CDT Sexual Orientation Straight 12/29/2020 10 :31 AM CDT documented as of this encounter Plan of Treatment Not on file documented as of this encounter Goals Goal Patient Goal Type Associated Problems Recent Progress Patient-Stated? Author BH-Pain Behavioral Health Improving(04/2020 12:07 PM PARAPROFESSIONAL EDUCATION ASSISTANT) No Mariana Berg RN Note: Patient will [...] on filedocumented in this encounter Care Teams Tunnel Drier Operator Relationship Specialty Start Date End Date Duran Montero MD [address] [place] [address] PCP - General 09/24/16 10/03/24 Vu Condon DO [address] [place] [address] PCP - General Internal Medicine 10/04/24 Heidi Montes De Oca MD [address] [place] [address] Transplant Hepatology 10/09/24 11/26/24 Franklin Phelps MD PhD [address] [place] [address] Medical Oncologist/Sandfill Operator Surface Medical Oncology 10/25/24 documented as of this encounter
--- OUTSIDE RECORDS SUMMARY | 2024-11-30 21:33 | XMS_ITS | Encounter Summary ---
Author Organization [facility] Address [address] [place] [address] Phone Care Team Providers Care Account Associate Name Role Phone Vu Condon DO Primary Care Provider [phone] Heidi Montes De Oca MD Unavailable Franklin Phelps MD PhD Unavailable [phone] Encounter Details Date Type Department Care Team (Late st Contact Info) Description 10/07/2024 Results Follow-Up [facility] Gastroenterology [address] Medicine 12th [place] [address] [place] [address] Heidi Montes De Oca MD [address] [place] [address] CT Body Outside Consult Social [...] on file Legal Sex Male 8:47 PM OCCUPATIONAL HEALTH PHYSIOTHERAPIST Gender Identity Male 12/29/2020 10:31 AM CDT Sexual Orientation Straight 12/29/2020 10 :31 AM CDT documented as of this encounter Plan of Treatment Not on file documented as of this encounter Goals Goal Patient Goal Type Associated Problems Recent Progress Patient-Stated? Author BH-Pain Behavioral Health Improving(04/2020 12:07 PM OCCUPATIONAL HEALTH PHYSIOTHERAPIST) No Mariana Berg, RN Note: Patient will establish a comfort-function goal and identify the pain level that will allow the patient to perform desired activities and achieve an acceptable quality of life. documented as of this encounter Visit Diagnoses Not on filedocumented in this encounter Care Teams Account Associate Relationship Specialty Start Date End Date Vu Condon DO [address] [facility] [address] [place] [address] PCP - General Internal Medicine 10/04/24 Heidi Montes De Oca MD [address] [place] [address] Transplant Hepatology 10/09/24 11/26/24 Franklin Phelps MD PhD [address] [place] [address] Medical Oncologist/Loan Administrator Medical Oncology 10/25/24 documented as of this encounter
[2024-11-30] MEDS: MAGNESIUM CITRATE 300 ML BTL PO (23:07)
[2024-11-30] MEDS: polyethylene glycoL 3350 17 GM POWD.PACK PO (23:07)
== END 2024-11-30 23:19 | disposition home or self-care (01) ==
PROVIDERS: Registered Nurse; Emergency Provider Student in an Organized Health Care Education/Training Program; PCP Internal Medicine
DX: K59.00 Constipation, unspecified (principal); C25.9 Malignant neoplasm of pancreas, unspecified; C78.7 Secondary malignant neoplasm of liver and intrahepatic bile duct; E78.5 Hyperlipidemia, unspecified; E11.9 Type 2 diabetes mellitus without complications; K22.70 Barrett's esophagus without dysplasia; M19.90 Unspecified osteoarthritis, unspecified site; G47.33 Obstructive sleep apnea (adult) (pediatric); Z96.612 Presence of left artificial shoulder joint; Z96.642 Presence of left artificial hip joint; Z87.11 Personal history of peptic ulcer disease; Z79.60 Long term (current) use of unspecified immunomodulators and immunosuppressants; Z79.84 Long term (current) use of oral hypoglycemic drugs; Z79.4 Long term (current) use of insulin; Z79.899 Other long term (current) drug therapy
CPT/HCPCS: 36415; 74018; 80053; 81001; 85025; 99284; A9270

== ENCOUNTER 2025-03-03 11:39 | Emergency (ER) | payer OTHER, SELFPAY ==
--- OUTSIDE RECORDS SUMMARY | 2014-11-11 10:30 | XMS_ITS | Continuity of Care Document ---
Author Organization [facility] Address [address] [place] [address] Phone Care Team Providers Care Anode Rebuilder Name Role Phone Bryan PT, Nicholas MUNSON Unavailable Unavailable Procedures Procedure Date PT RE-EVALUATION THERAPEUTIC EXERCISES NEUROMUSCULAR RE-ED ULTRASOUND THERAPY ELECTRIC STIMULATION UNATT THERAPEUTIC EXERCISES ULTRASOUND THERAPY ELECTRIC STIMULATION UNATT THERAPEUTIC EXERCISES NEUROMUSCULAR RE-ED ULTRASOUND THERAPY ELECTRIC STIMULATION UNATT THERAPEUTIC EXERCISES ULTRASOUND THERAPY ELECTRIC STIMULATION UNATT THERAPEUTIC EXERCISES ULTRASOUND THERAPY ELECTRIC STIMULATION UNA PT EVALUATION THERAPEUTIC EXERCISES ULTRASOUND THERAPY Advance Directives Directive Yes / No Effective Date File Name No Information Encounters Encounter Description Practice Location Reason(s) For Visit Diagnoses Date Provider Providers Copied on Encounter [facility], [address] [address], [place], [place], [id number], [place] tel:[phone] [place] No Information 5 Bryan Peterson. [address] [facility], [address], [place], [address], [place]. tel: [phone] [facility], [address], [place], [place], [id number], [place] tel:[phone] [place] No Information May-1 4-201 5 Bryan Nicholas. [address] [place] [address], [facility] [address] [place] [address], . tel: [phone] [address], [place], [place], [id number], tel:[phone] [place] No Information May-0 7-201 5 Bryan Nicholas. [address] [place] [address], [facility] [address] [address], . tel: [phone] [address], [place], [id number], tel:[phone] [place] No Information May-0 4-201 5 Bryan Nicholas. [address] [place] [address], [facility] [address] [address], . tel: [phone] [address], [id number], tel:[phone] [place] No Information Apr-3 0-201 5 Bryan Nicholas. [address] [place] [address], [place] [address], . tel: [phone] [address], [id number], tel:[phone] [place] Pain in joint involving ankle and foot Apr-2 7-201 5 Bryan Nicholas. [address] [place] [address], [facility] [address] [address], . tel: [phone] Family History Family Member Type Diagnosis Age At Onset No Information Payers Payer name Insurance type Covered libertarian ID Jossie sloan(s) [facility] [id number] [facility] 2014 Social History Type Description Quantity Date Captured Comments Sex Male Smoking Status No Information Chief Complaint And Reason For Visit No Information Reason For Referral Reason For Referral No Information History Of Present Illness Encounter Date Complaint History Of Prese nt Illness No Information Functional Status Date Functional Assessmen t No Information Instructions Date Instruction Additional Infor mation No Information Assessments Type Assessment Date No Information Patient Care Teams Name Effective Dates (start - stop) Status Members No Information
--- OUTSIDE RECORDS SUMMARY | 2025-03-01 09:47 | XMS_ITS | Encounter Summary ---
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) Procedures CT chest abdomen pelvis with contrast Franklin Phelps MD PhD Phone: tel: fax: [address] [phone] Referral ID Status Reason Start Date Expiration Date Visits Re quested Visits Authorized [id number] Closed 02/11/2025 03/13/2026 1 1 Reason for Visit * MRI/CAT/PET Scan (Routine) - Closed Specialty Diagnoses / Procedures Referred By Contac t Referred To Contact Radiology Diagnoses Malignant 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) Procedures CT chest abdomen pelvis with contrast Franklin Phelps MD PhD Phone: tel: fax: [address] [phone] Referral ID Status Reason Start Date Expiration Date Visits Re quested Visits Authorized [id number] Closed 02/11/2025 03/13/2026 1 1 Encounter Details Date Type Department Care Team (Latest Contact Info) Description 03/01/2025 9:47 AM CDT - 03/01/2025 11:59 PM CDT Hospital Encounter [facility] [place] [address] [facility] [address] [place] [address] Malignant neoplasm of head of pancreas (HCC); 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 Patient unable to answer 01/08/2025 Social Connection and Isolation Panel Answer Date Recorded In a typical week, how many times do you talk on the phone with family, friends, or neighbors? Patient unable to answer 01/08/2025 How often do you get togethe r with friends or relatives? Patient unable to answer 01/08/2025 How often do you attend [facility] or [facility] services? Patient unable to answer 01/08/2025 Do you belong to any clubs o r organizations such as jew groups, unions, fraternal or athletic groups, or school groups? Patient unable to answer 01/08/2025 How often do you attend meet ings of the clubs or organizations you belong to? Patient unable to answer 01/08/2025 Are you , , di vorced, , never , or living with a partner? Patient unable to answer 01/08/2025 AUDIT-C Answer Date Recorded Q1: How often do you have a drink containing alc ohol? 2-3 times a week 10/18/2024 Q2: How many drinks containi ng alcohol do you have on a typical day when you are drinking? 3 or 4 10/18/2024 Q3: How often do you have si x or more drinks on one occasion? Monthly 10/18/2024 Overall Financial Resource Strain (CARDIA) Answe r Date Recorded How hard is it for you to pa y for the very basics like food, housing, medical care, and heating? Patient unable to answer 01/08/2025 PHQ-2 Answer Date Recorded PHQ-2 Total Score (If total score is 3 or more points, staff should administer the PHQ-9) 0 01/13/2023 Hunger Vital Sign Answer Date Recorded Within the past 12 months, y ou worried that your food would run out before you got the money to buy more. Patient unable to answer 01/08/2025 Within the past 12 months, t he food you bought just didn't last and you didn't have money to get more. Patient unable to answer 01/08/2025 PRAPARE - Transportation Answer Date Re corded In the past 12 months, has l ack of transportation kept you from medical appointments or from getting medications? Patient unable to answer 01/08/2025 In the past 12 months, has l ack of transportation kept you from meetings, work, or from getting things needed for daily living? Patient unable to answer 01/08/2025 Housing Stability Vital Sign Answer Alexandr e Recorded In the last 12 months, was t here a time when you were not able to pay the mortgage or rent on time? Patient unable to answer 01/08/2025 In the past 12 months, how m any times have you moved where you were living? 0 01/08/2025 At any time in the past 12 m [facility], were you homeless or living in a usp (including now)? Patient unable to answer 01/08/2025 Personal Safety Answer Date Recorded Have you ever been in or are you currently in a harmful physical or emotional relationship or is someone making you feel afraid or unsafe? 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 Gender Identity Male 12/29/2020 10:31 AM CDT Sexual Orientation Straight 12/29/2020 10 :31 AM CDT documented as of this encounter Medications at Time of Discharge acyclovir (ZOVIRAX) 200 mg capsule Take 1 capsule (200 mg total) by mouth 4 (four) times a day apixaban (Eliquis) 5 mg tabletIndications: Venous Thrombosis Take 1 tablet (5 mg total) by mouth 2 (two) times a day 180 tablet 3 5 02/07/20 26 atorvastatin (LIPITOR) 20 mg tablet TAKE 1 TABLET DAILY 90 tablet 3 5 dexAMETHasone (DECADRON) 4 mg tabletIndications: Malignant neoplasm of head of pancreas (HCC),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 24 tablet 2 5 diphenoxylate-atro pine (LOMOTIL) 2.5-0.025 mg per tabletIndications: Chemotherapy-Induc ed Diarrhea,diarrhea Take 1 tablet by mouth 4 (four) times a day as needed for diarrhea 30 tablet 2 5 fluticasone propionate (FLONASE) 50 mcg/actuation nasal spray SHAKE LIQUID AND USE 2 SPRAYS IN EACH NOSTRIL DAILY NEEDED FOR NASAL CONGESTION 4 Cynny Treasure 3 Plus Sensor deviceIndications: Type 2 diabetes mellitus with hyperglycemia, with long-term current use of insulin ([facility]) Change sensor every 15 days 6 each 3 5 glimepiride (AMARYL) 2 mg tabletIndications: Type 2 diabetes mellitus with hyperglycemia, with long-term current use of insulin ([facility]) TAKE 1 TABLET DAILY BEFORE BREAKFAST 90 tablet 3 5 HumaLOG 100 unit/mL pen for injection INJECT 20 TO 30 UNITS UNDER THE SKIN TWICE A DAY BEFORE BREAKFAST AND DINNER (MAXIMUM DAILY DOSE 60 UNITS) 60 mL 3 5 latanoprost (XALATAN) 0.005 % ophthalmic solutionIndication s:glaucoma prevention Administer 1 drop into both eyes nightly 9 lidocaine-prilocai ne (EMLA) creamIndications:A dministration of Local Anesthesia Place cream over port site 30-45 minutes prior to each use and cover with plastic wrap or a [id number]. 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 Max 8 caps (16 mg) per 24 hours. 60 capsule 3 5 metFORMIN XR (GLUCOPHAGE XR) 500 mg 24 hr tabletIndications: Type 2 diabetes mellitus with hyperglycemia, with long-term current use of insulin (HCC) TAKE 2 TABLETS TWICE A DAY 360 tablet 3 5 ondansetron (ZOFRAN) 8 mg tabletIndications: Malignant neoplasm of head of pancreas (HCC),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 24 tablet 3 5 oxyCODONE-acetamin ophen (PERCOCET) 10-325 mg per tabletIndications: Duodenal adenocarcinoma (HCC) Take 1 tablet by mouth every 6 (six) hours as needed for pain [address] (PROTONIX) 40 mg EC tablet Take 1 tablet (40 mg total) by mouth every 12 (twelve) hours 5 pen needle, diabetic (BD Ultra-Fine Short Pen Needle) 31 gauge x 5/16 needleIndications: Type 2 diabetes mellitus with hyperglycemia, with long-term current use of insulin (HCC) Inject 1 each under the skin 4 (four) times a day before meals and nightly Use to take insulin 4 x day. 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 120 tablet 3 5 timolol (TIMOPTIC) 0.25 % ophthalmic solution Administer 1 drop into both eyes daily 3 valsartan-hydrochl orothiazide (DIOVAN-HCT) 160-25 mg per tabletIndications: hypertension Take 1 tablet by mouth every morning documented as of this encounter Discharge Disposition Disposition Code Departure Means Destination Discharge to home or self care documented in this encounter Plan of Treatment Not on file documented as of this encounter Goals Goal Patient Goal Type Associated Problems Recent Progress Patient-Stated? 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 Mild interval decrease in size of soft tissue mass in the pancreatic head region consistent with known history of pancreatic cancer. 2. Likely involvement of superior mesenteric artery and vein. 3. Numerous hepatic lesions consistent with metastasis, not significant changed in size. 4. Mild interval increase in size of a anna hepatis and aortocaval lymph nodes. 5. No evidence of metastatic disease within the chest. Electronically signed by: Natalie Cruz M.D. Narrative 03/01/2025 12:20 PM CDT EXAMINATION: Computed tomography of the chest, abdomen and pelvis with intravenous contrast HISTORY: Malignant neoplasm of head of pancreas, assess treatment response; numerous liver metastases; indeterminant left adrenal nodule; last chemotherapy cycle 02/11/2025 TECHNIQUE: Transaxial computed tomographic images of the chest, abdomen and pelvis were obtained with intravenous contrast according to the standard protocol after the uneventful administration of 69 mL Opti-Ray 350 intravenous contrast. COMPARISON: CT abdomen and pelvis 12/27/2024 FINDINGS: Chest: Somewhat focal subpleural stranding and the posterior medial right middle lobe (series 5, image 73) may relate to atelectatic changes versus a 3 mm pulmonary nodule with atelectatic changes previously in this location. An approximately 2 mm pulmonary nodule at the medial right upper lobe (series 5, image 14) is unchanged. No additional suspicious pulmonary nodules. Redemonstrated 2.4 cm low-density nodule in the right thyroid lobe, unchanged. Right IJ approach central venous catheter has the tip in the right atrium. Stable approximately 1.4 cm left upper paratracheal lymph node is unchanged (series 2, image 26). Mild coronary artery calcifications. Heart is normal in size. No pericardial effusion. No suspicious osseous lesions. Partially included left shoulder reverse arthroplasty is in place. Multilevel degenerative changes of thoracic spine are unchanged. Abdomen/Pelvis: Spleen is normal in appearance. Again demonstrated are numerous metastatic lesions throughout the liver are not significantly changed in size. For reference approximately 4.4 cm lesion in hepatic segment 8 (series 2, image 108) is not significantly changed. Redemonstrated heterogenous density lesion in the pancreatic head region and abutting the 3rd portion of the duodenum is mildly decreased in size now measuring approximately 4.8 x 4.4 cm, previously 5.8 x 4.4 cm. There is likely involvement of the superior mesenteric artery and vein. There is mild interval increase in the anna hepatis lymph node measuring up to 2.1 cm (series 2, image 249, previously measuring approximately 1.1 cm. Again demonstrated is aortocaval lymphadenopathy with the largest lymph node measuring approximately 1.4 cm, previously 1.0 cm (series 2, image 164). The gallbladder is mildly distended without evidence of wall thickening. Again demonstrated is a left adrenal gland nodule, not significantly changed. The right adrenal gland is normal in appearance. The bilateral kidneys are normal in appearance with a small cystic lesion at the left interpolar region. Mildly prominent fluid-filled loops of small bowel in the lower abdomen may relate to a diarrheal state versus focal ileus. The appendix is normal. The bladder and prostate are normal in appearance. No suspicious osseous lesions. Left hip arthroplasty is unchanged. Procedure Note Natalie Cruz MD - 03/01/2025 EXAMINATION: Computed tomography of the chest, abdomen and pelvis with intravenous contrast HISTORY: Malignant neoplasm of head of pancreas, assess treatment response; numerous liver metastases; indeterminant left adrenal nodule; last chemotherapy cycle 02/11/2025 TECHNIQUE: Transaxial computed tomographic images of the chest, abdomen and pelvis were obtained with intravenous contrast according to the standard protocol after the uneventful administration of 69 mL Opti-Ray 350 intravenous contrast. COMPARISON: CT abdomen and pelvis 12/27/2024 FINDINGS: Chest: Somewhat focal subpleural stranding and the posterior medial right middle lobe (series 5, image 73) may relate to atelectatic changes versus a 3 mm pulmonary nodule with atelectatic changes previously in this location. An approximately 2 mm pulmonary nodule at the medial right upper lobe (series 5, image 14) is unchanged. No additional suspicious pulmonary nodules. Redemonstrated 2.4 cm low-density nodule in the right thyroid lobe, unchanged. Right IJ approach central venous catheter has the tip in the right atrium. Stable approximately 1.4 cm left upper paratracheal lymph node is unchanged (series 2, image 26). Mild coronary artery calcifications. Heart is normal in size. No pericardial effusion. No suspicious osseous lesions. Partially included left shoulder reverse arthroplasty is in place. Multilevel degenerative changes of thoracic spine are unchanged. Abdomen/Pelvis: Spleen is normal in appearance. Again demonstrated are numerous metastatic lesions throughout the liver are not significantly changed in size. For reference approximately 4.4 cm lesion in hepatic segment 8 (series 2, image 108) is not significantly changed. Redemonstrated heterogenous density lesion in the pancreatic head region and abutting the 3rd portion of the duodenum is mildly decreased in size now measuring approximately 4.8 x 4.4 cm, previously 5.8 x 4.4 cm. There is likely involvement of the superior mesenteric artery and vein. There is mild interval increase in the anna hepatis lymph node measuring up to 2.1 cm (series 2, image 249, previously measuring approximately 1.1 cm. Again demonstrated is aortocaval lymphadenopathy with the largest lymph node measuring approximately 1.4 cm, previously 1.0 cm (series 2, image 164). The gallbladder is mildly distended without evidence of wall thickening. Again demonstrated is a left adrenal gland nodule, not significantly changed. The right adrenal gland is normal in appearance. The bilateral kidneys are normal in appearance with a small cystic lesion at the left interpolar region. Mildly prominent fluid-filled loops of small bowel in the lower abdomen may relate to a diarrheal state versus focal ileus. The appendix is normal. The bladder and prostate are normal in appearance. No suspicious osseous lesions. Left hip arthroplasty is unchanged. IMPRESSION: 1. Mild interval decrease in size of soft tissue mass in the pancreatic head region consistent with known history of pancreatic cancer. 2. Likely involvement of superior mesenteric artery and vein. 3. Numerous hepatic lesions consistent with metastasis, not significant changed in size. 4. Mild interval increase in size of a anna hepatis and aortocaval lymph nodes. 5. No evidence of metastatic disease within the chest. Electronically signed by: Natalie Cruz M.D. 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) Malignant neoplasm of head of pancreas Malignant neoplasm metastatic to liver (HCC) documented in this encounter Administered Medications Inactive Administered Medications - up to 3 most recent administrations Medication Order MAR Action Action Date Dose Rate Site heparin 100 unit/mL injection 500 Units 500 Units (5 mL), intra-catheter, Once, On Tue03/01/25 at 1100, For 1 dose, For port decannulation., Indications: Maintain Patency of Indwelling Vascular CatheterIndications:Maintai n Patency of Indwelling Vascular Catheter Given 03/01/2025 10:49 AM CDT 500 Units ioversoL (OPTIRAY 350) syringe 75 mL 75 mL, intravenous, Once in imaging, contrast, Starting on Tue03/01/25 at 1034, For 1 dose Contrast Given 03/01/2025 10:35 AM CDT 69 mL sodium chloride 0.9% flush 10-20 mL 10-20 mL, intra-catheter, As needed, line care, Starting on Tue03/01/25 at 1024, To saline lock: Flush with 10mL per lumen. Flush with 20mL after obtaining a blood sample in lumen utilized. Saline flush syringes are single lumen use, do not use same syringe on multiple lumens. Use postive pressure disconnect: pulsitile flush--> clamp--> then disconnect syringe. Given 03/01/2025 10:47 AM CDT 10 mL Given 03/01/2025 10:26 AM CDT 10 mL documented in this encounter Orders Medications Ordered That Sebastián ht Not Have Been Administered Count Last Ordered Date First Ordered Date sodium chloride 0.9% flush 10 mL 1 03/01/20 documented in this encounter Care Teams Psychosocial Rehabilitation Counselor Relationship Specialty Start Date End Date Vu Condon DO PCP - General Internal Medicine 10/04/24 Franklin Phelps MD PhD Medical Oncologist/Oil Rag Washer Medical Oncology 10/25/24 documented as of this encounter
--- OUTSIDE RECORDS SUMMARY | 2025-03-03 11:43 | XMS_ITS | Clinical Summary ---
Author Organization [facility] Address [address] [place] [address] Care Team Providers Care Motor Home Electrical Foreman Name Role Phone WinstonJarekDurankarlos Nicole DO Primary Care Provider [phone] Source Comments [facility],non-owned Affiliates and Associated Physician Practices is amultiple site organization consisting of ambulatory clinics and hospital sitesin [place], [place], [place] and [place]. This disclosure is being madepursuant to the Care Everywhere program and may not contain all information available regarding this patient. 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 Gender Identity Not on file Sexual Orientation [...] 1984 ZOSTER VACCINE (1 of 2) 2015 DEPRESSION SCREENING 06/27/2024 COVID-19 VACCINE (1 - 2023-2 5 season) 2025 INFLUENZA VACCINE (#1) 2025 HIB VACCINE Aged Out No longer [...] patient's age to complete this topic Insurance [facility] SELF PAY NO INSURANCE Member Subscriber Plan / Payer (Ef fective for All Dates) Name:Thien Hannon Member ID:Not on file Relation to Subscriber:Not on file Name:THIEN HANNON Subscriber ID:Not on file (Home) Address: [address] [place] [address] Payer ID:Not on file Group ID:Not on file Type:Self Pay Address: [facility] [place] [facility] Care Teams Motor Home Electrical Foreman Relationship Specialty Start Date End Date Duran Montero DO [address] [place] [address] PCP - General 07/14/12
--- OUTSIDE RECORDS SUMMARY | 2025-03-03 11:43 | XMS_ITS | Clinical Summary ---
Author Organization [facility] Address [address] [place] [id number] Care Team Providers Care Merchant Patroller Name Role Phone Unavailable Primary Care Provider [...] Td Vaccines ( 1 - Tdap) 1984 Pneumococcal Vaccine: 50+ Ye ars (1 of 1 - PCV) 2015 Zoster Vaccines (1 of 2) 2015 COVID-19 Vaccine (1 - 2023-2 5 season) 2025 Meningococcal B Vaccine Aged Out No l onger eligible based on patient's age to complete this topic Meningococcal Vaccine Aged Out No nicole eunice eligible based on patient's age to complete this topic RSV Immunizations Under 20 Months Aged Out No longer eligible based on patient's age to complete this topic
--- OUTSIDE RECORDS SUMMARY | 2025-03-03 11:43 | XMS_ITS ---
Author Organization [facility] Address [address] [place] [address] Care Team Providers Care Credit Checker Name Role Phone Vu Condon DO Primary Care Provider [phone] Franklin Phelps MD PhD Unavailable Active Problems Problem Noted Date Diagnosed Date Sepsis 01/06/2025 Assessment & Plan (01/08/2025 3:48 PM CDT): Lactate of 2.6 at presentation, down to 1.4 after 500ml LR bolus. CXR concerning for atelectasis vs PNA. - probably just URI, MRSA nares negative - de-escalate to Augmentin bid to finish 5 days; pen-fast is 0, patient willing to take Augmentin Assessment & Plan (01/07/2025 9:30 AM CDT): Lactate of 2.6 at presentation, down to 1.4 after 500ml LR bolus. CXR concerning for atelectasis vs PNA. -- Was given 3L of IVF to complete 30cc/kg sepsis fluid resuscitation -- cont vanc, cefepime. --Urinalysis (no c/f infection), MRSA swab, BCx2, throat cx ordered Assessment & Plan (01/06/2025 6:48 PM CDT): Lactate of 2.6 at presentation, down to 1.4 after 500ml LR bolus. CXR concerning for atelectasis vs PNA. -- will give 3L of IVF to complete 30cc/kg sepsis fluid resuscitation -- cont vanc, cefepime. -- MRSA swab, BCx2, urinalysis ordered Pulmonary embolism 01/06/2025 Assessment & Plan (01/08/2025 3:48 PM CDT): Incidentally diagnosed on 12/[address] A/P. small, non-occlusive subsegmental left lower lobe PE without heart strain. Started on eliquis, but new LE duplex are positive for DVT that are new since starting the treatment. This likely represents treatment failure given he developed a DVT while on DOAC. - li check Lovenox 1mg/kg bid indefinitely; $150/month Assessment & Plan (01/07/2025 9:30 AM CDT): Incidentally diagnosed on 12/[address] A/P. small, non-occlusive subsegmental left lower lobe PE without heart strain. Started on eliquis -- cont eliquis 5mg BID Assessment & Plan (01/06/2025 11:47 PM CDT): Incidentally diagnosed on 12/[address] A/P. small, non-occlusive subsegmental left lower lobe PE without heart strain. Started on eliquis -- cont eliquis 5mg BID Upper respiratory infection 01/06/2025 Assessment & Plan (01/08/2025 3:48 PM CDT): Lactate of 2.6 at presentation, down to 1.4 after 500ml LR bolus. CXR concerning for atelectasis vs PNA. - probably just URI, MRSA nares negative - de-escalate to Augmentin bid to finish 5 days; pen-fast is 0, patient willing to take Augmentin Assessment & Plan (01/07/2025 9:30 AM CDT): Lactate of 2.6 at presentation, down to 1.4 after 500ml LR bolus. CXR concerning for atelectasis vs PNA. -- Was given 3L of IVF to complete 30cc/kg sepsis fluid resuscitation -- cont vanc, cefepime. --Urinalysis (no c/f infection), MRSA swab, BCx2, throat cx ordered Assessment & Plan (01/06/2025 6:48 PM CDT): Lactate of 2.6 at presentation, down to 1.4 after 500ml LR bolus. CXR concerning for atelectasis vs PNA. -- will give 3L of IVF to complete 30cc/kg sepsis fluid resuscitation -- cont vanc, cefepime. -- MRSA swab, BCx2, urinalysis ordered Type 2 diabetes mellitus, wi th long-term current use of insulin 01/06/2025 Assessment & Plan (01/08/2025 3:48 PM CDT): On metformin, ozempic, glimepride, humalog 20-30U BID and glargine 80U nightly at home. -- Starting glargine 40U qHS (gave x1 10 units this am), 10 TID of humalog and SSI Assessment & Plan (01/07/2025 10:16 AM CDT): On metformin, ozempic, glimepride, humalog 20-30U BID and glargine 80U nightly at home. -- Starting glargine 40U qHS (gave x1 10 units this am), 10 TID of humalog and SSI Assessment & Plan (01/06/2025 6:48 PM CDT): On metformin, ozempic, glimepride, humalog 20-30U BID and glargine 80U nightly at home. -- Starting glargine 40U, 10 TID of humalog and SSI Anemia 01/06/2025 Assessment & Plan (01/08/2025 3:48 PM CDT): Hgb 8.6 on 12/31, to 7.3 on presentation. -- T&S, consented. Hgb >7 (received 1 unit overnight) Assessment & Plan (01/07/2025 9:30 AM CDT): Hgb 8.6 on 12/31, to 7.3 on presentation. -- T&S, consented. Hgb >7 (received 1 unit overnight) Assessment & Plan (01/06/2025 9:13 PM CDT): Hgb 8.6 on 12/31, to 7.3 on presentation. -- T&S, consented. 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 -- protonix 40 Assessment & Plan (01/07/2025 9:30 AM CDT): On omeprazole 40mg at home. -- protonix 40 Assessment & Plan (01/06/2025 6:48 PM CDT): On omeprazole 40mg at home. -- protonix 40 Hyponatremia 01/06/2025 Assessment & Plan (01/08/2025 3:48 PM CDT): Na at 129 at presentation, down from 132 on 12/31. Given presentation likely hypovolemic hyponatremia but glucose elevated (276) as well. Uric acid, serum osmo (283), urine osmo (425), urine na (62) and uric acid (3.8). RESOLVED. Na now 134 Assessment & Plan (01/07/2025 9:30 AM CDT): Na at 129 at presentation, down from 132 on 12/31. Given presentation likely hypovolemic hyponatremia but glucose elevated (276) as well. Uric acid, serum osmo (283), urine osmo (425), urine na (62) and uric acid (3.8). RESOLVED. Na now 134 Assessment & Plan (01/06/2025 6:48 PM CDT): Na at 129 at presentation, down from 132 on 12/31. Given presentation likely hypovolemic hyponatremia but glucose elevated (276) as well. -- uric acid, serum osmo, urine osmo, urine na and uric acid ordered Pancreatic adenocarcinoma 01/06/2025 Assessment & Plan (02/26/2025 9:19 AM CDT): Chronic problem. Currently undergoing chemo q2wks. Has lost 60# since 09/2024 dx/tx started. Reports that he is stage 4 pancreatic cancer with mets to liver & duodenum. Reviewed increasing Semglee dose 5-10 units with chemo (d/t steroids); aware to monitor BG. Assessment & Plan (01/08/2025 3:48 PM CDT): Diagnosed in 09/2024 via liver biopsy. Started treatment (gemcitabine/abraxane) in 10/2024. Last staging scan on 12/24/24 demonstrated dx progression. Due to progression, started cycle 1 mFOLFIRINOX on 12/31, with plans for cycle 2 on 01/14. -- c/s med onc -- tigan for nausea given prolonged QTC (527). Reglan 2nd line PRN. Monitor QTC. Added scopolamine patch -- Cont home percocet 10-325mg q6 PRN -- Dilaudid 0.5mg q4 PRN for breakthrough pain - not requiring, d/c Assessment & Plan (01/07/2025 10:35 AM CDT): Diagnosed in 09/2024 via liver biopsy. Started treatment (gemcitabine/abraxane) in 10/2024. Last staging scan on 12/24/24 demonstrated dx progression. Due to progression, started cycle 1 mFOLFIRINOX on 12/31, with plans for cycle 2 on 01/14. -- c/s med onc -- tigan for nausea given prolonged QTC (527). Reglan 2nd line PRN. Monitor QTC. Added scopolamine patch -- Cont home percocet 10-325mg q6 PRN -- Dilaudid 0.5mg q4 PRN for breakthrough pain Assessment & Plan (01/06/2025 9:13 PM CDT): Diagnosed in 09/2024 via liver biopsy. Started treatment (gemcitabine/abraxane) in 10/2024. Last staging scan on 12/24/24 demonstrated dx progression. Due to progression, started cycle 1 mFOLFIRINOX on 12/31, with plans for cycle 2 on 01/14. -- c/s med onc -- tigan, IV Palonosetron for nausea given prolonged QTC (527) -- Cont home percocet 10-325mg q6 PRN -- Dilaudid 0.5mg q4 PRN for breakthrough pain Left leg DVT 01/06/2025 Assessment & Plan (01/08/2025 3:48 PM CDT): Asymmetric painless mild swelling of left leg when compared to the right. Pt reports it has been ongoing for last few days. -- US showing DVT in peroneal veins (occlusive) and soleal sinus veins on the left. Assessment & Plan (01/07/2025 9:30 AM CDT): Asymmetric painless mild swelling of left leg when compared to the right. Pt reports it has been ongoing for last few days. -- US showing DVT in peroneal veins (occlusive) and soleal sinus veins on the left. Patient already on Eliquis recently started. Will cont for now Assessment & Plan (01/06/2025 8:10 PM CDT): Asymmetric painless mild swelling of left leg when compared to the right. Pt reports it has been ongoing for last few days. -- bilateral duplex ordered QT prolongation 01/06/2025 Assessment & Plan (01/08/2025 3:48 PM CDT): Diagnosed in 09/2024 via liver biopsy. Started treatment (gemcitabine/abraxane) in 10/2024. Last staging scan on 12/24/24 demonstrated dx progression. Due to progression, started cycle 1 mFOLFIRINOX on 12/31, with plans for cycle 2 on 01/14. -- c/s med onc -- tigan for nausea given prolonged QTC (527). Reglan 2nd line PRN. Monitor QTC. Added scopolamine patch -- Cont home percocet 10-325mg q6 PRN -- Dilaudid 0.5mg q4 PRN for breakthrough pain - not requiring, d/c Assessment & Plan (01/07/2025 10:35 AM CDT): Diagnosed in 09/2024 via liver biopsy. Started treatment (gemcitabine/abraxane) in 10/2024. Last staging scan on 12/24/24 demonstrated dx progression. Due to progression, started cycle 1 mFOLFIRINOX on 12/31, with plans for cycle 2 on 01/14. -- c/s med onc -- tigan for nausea given prolonged QTC (527). Reglan 2nd line PRN. Monitor QTC. Added scopolamine patch -- Cont home percocet 10-325mg q6 PRN -- Dilaudid 0.5mg q4 PRN for breakthrough pain Assessment & Plan (01/06/2025 9:13 PM CDT): Diagnosed in 09/2024 via liver biopsy. Started treatment (gemcitabine/abraxane) in 10/2024. Last staging scan on 12/24/24 demonstrated dx progression. Due to progression, started cycle 1 mFOLFIRINOX on 12/31, with plans for cycle 2 on 01/14. 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 Discussed healthy diet and importance of regular physical activity (20- 30min/day, 150min/wk). SRI on CPAP 05/07/2021 Primary osteoarthritis of left shoulder 04/14/20 21 Overview (04/14/2021): Added automatically from request for surgery [id number] Diabetic polyneuropathy asso ciated with type 2 diabetes mellitus 04/06/2021 Assessment & Plan (02/26/2025 8:40 AM CDT): Chronic problem. Currently taking Gabapentin 300mg prn. Reviewed foot care; needs to lotion daily. Aware to check feet nightly, not to go barefoot. Assessment & Plan (04/06/2024 9:43 AM CDT): [...] diabetes cornel jenkins 06/06/2018 Assessment & Plan (02/26/2025 8:41 AM CDT): Chronic problem, controlled on current Atovastatin 20mg. Last lipid panel: 04/06/24 LDL=91, TG=84. No changes at this time. Will update lipid panel. Verified that he uses [facility]. Aware to check results/results letter in [facility]. Will contact by phone if needed. Assessment & Plan (04/06/2024 9:02 AM CDT): Chronic problem, controlled on current Atovastatin 20mg. Last lipid panel: 01/13/23 LDL=93, TB=700. No changes at this time. Will update lipid panel today. Verified that he uses [facility]. Aware to check results/results letter in [facility]. Will contact by phone if needed. Assessment & Plan (01/13/2023 10:12 AM CDT): Chronic problem, controlled on current Atovastatin 20mg. Last lipid panel: 01/13/22 LDL=80, TG=95. No changes at this time. Will update lipid panel today. Verified that he uses [facility]. Aware to check results/results letter in [facility]. Will contact by phone if needed. Assessment & Plan (09/16/2022 11:34 AM CDT): Chronic problem, controlled on current Atovastatin 20mg. Last lipid panel: 01/13/22 LDL=80, TG=95. No changes at this time. Assessment & Plan (05/13/2022 10:18 AM REGIONAL REHABILITATION DIRECTOR): Chronic problem. On statin therapy, no changes. Assessment & Plan (01/13/2022 9:39 AM CDT): Chronic, well controlled Low fat Low cholesterol diet Exercise Continue statin therapy Check lipid profile Assessment & Plan (08/17/2021 4:39 PM REGIONAL REHABILITATION DIRECTOR): Chronic, well controlled Continue current meds Assessment & Plan (12/21/2019 10:56 AM CDT): At goal on current medications. Continue statin therapy. Assessment & Plan (09/13/2019 2:22 PM CDT): At goal on current medications. Continue statin therapy. Assessment & Plan (05/10/2019 4:20 PM REGIONAL REHABILITATION DIRECTOR): Goal of treatment , LDL cholesterol less [...] panel Assessment & Plan (06/06/2018 2:28 PM REGIONAL REHABILITATION DIRECTOR): Goal of treatment , LDL cholesterol less [...] statin therapy Dietary counseling and surveillance 01/25/2014 Hypertension, essential 11/10/2013 Overview (09/29/2016): HYPERTENSION NOS Assessment & Plan (01/08/2025 3:48 PM CDT): -- Holding home valsartan-hctz iso of sepsis Assessment & Plan (01/07/2025 9:30 AM CDT): -- Holding home valsartan-hctz iso of sepsis Assessment & Plan (01/06/2025 9:13 PM CDT): -- Holding home valsartan-hctz iso of sepsis Assessment & Plan (04/06/2024 9:02 AM CDT): [...] time. Assessment & Plan (05/13/2022 10:18 AM REGIONAL REHABILITATION DIRECTOR): Controlled on current medications, no changes. Assessment & Plan (01/13/2022 9:40 AM CDT): Chronic, well controlled Continue current meds Check MA Assessment & Plan (12/21/2019 10:55 AM CDT): Controlled on current medications. Continue plan. Assessment & Plan (09/13/2019 2:22 PM CDT): Controlled on current medications. Continue plan. Assessment & Plan (05/10/2019 4:19 PM REGIONAL REHABILITATION DIRECTOR): Goal blood pressure is less than 140/85 Low salt diet recommended Daily aerobic exercise Continue current meds, including NICHOLE-I or ARB Check microalbumin Assessment & Plan (02/06/2019 3:15 PM CDT): Controlled on current medications. Assessment & Plan (10/21/2018 9:02 PM CDT): At goal on current medications. Assessment & Plan (06/06/2018 2:28 PM REGIONAL REHABILITATION DIRECTOR): Goal blood pressure is less than 140/85 Low salt diet recommended Daily aerobic exercise Continue current meds, including NICHOLE-I or ARB Assessment & Plan (12/22/2017 10:39 AM CDT): Controlled on current medications. Assessment & Plan (09/21/2017 2:12 PM CDT): Controlled on current medications. Assessment & Plan (06/21/2017 11:48 AM REGIONAL REHABILITATION DIRECTOR): Goal blood pressure is less than 140/85 Low salt diet recommended Daily aerobic exercise Continue current meds, including NICHOLE-I or ARB Nontoxic uninodular goiter 11/10/2013 Overview (09/29/2016): NONTOX UNINODULAR GOITER Assessment & Plan (09/02/2020 4:22 PM REGIONAL REHABILITATION DIRECTOR): Thyroid ultrasound performed today Right lower thyroid nodule, without significant changes in size Assessment & Plan (02/06/2019 3:15 PM CDT): Will obtain records from [facility]. Left side of face swelling present, tender. Advise that he follow up again with PCP. Type 2 diabetes mellitus wit h hyperglycemia, with long-term current use of insulin 11/10/2013 Overview (10/02/2016): DMII WO CMP UNCNTRLD Assessment & Plan (02/26/2025 9:12 AM CDT): Chronic problem. A1c at goal & improved from 7.2% 01/07/25 to now 6.25%. Blood sugars persistently hyperglycemic 10-11a to 2a. On days of chemo--increase the long-acting Semglee by 10 units for 4-5 days (pay attention to your sugars, start to decrease back once you see then numbers coming back down). Current medications: Metformin XR 1000mg twice daily before meals Glimepiride 2 mg every morning Semglee 50-60 units every evening Humalog 20-30 units with meals twice daily (breakfast & dinner) Will update labs. Verified that he uses [facility]. Aware to check results/results letter in [facility]. Will contact by phone if needed. DM eye exam (01/17/24 mild NPDR wo [...] skin breakdown and infection. Assessment & Plan (04/06/2024 9:50 AM CDT): [...] mychart. Will contact by phone if needed. UTD [...] Humalog Assessment & Plan (05/06/2023 9:22 AM REGIONAL REHABILITATION DIRECTOR): Hba1c was Lab Results Component Value Date [...] update labs today. Verified that he uses [place] [employer]. Aware to check results/results letter in [place] [employer]. Will contact by phone if needed. DM [...] sugars. Assessment & Plan (05/13/2022 10:20 AM REGIONAL REHABILITATION DIRECTOR): Chronic problem, stable per [facility] download. We [...] hypoglycemia Assessment & Plan (08/17/2021 4:38 PM REGIONAL REHABILITATION DIRECTOR): Hba1c was Lab Results Component Value Date [...] Metformin Assessment & Plan (09/02/2020 4:21 PM REGIONAL REHABILITATION DIRECTOR): Hba1c was Lab Results Component Value Date [...] exam. Assessment & Plan (05/10/2019 4:19 PM REGIONAL REHABILITATION DIRECTOR): Hba1c was Lab Results Component Value Date [...] exercise. Assessment & Plan (06/06/2018 2:39 PM REGIONAL REHABILITATION DIRECTOR): Hba1c was Lab Results Component Value Date [...] accountability. Assessment & Plan (06/21/2017 2:06 PM REGIONAL REHABILITATION DIRECTOR): Your Hba1c today was: 9.7 meaning a 3 month average sugar of : 237 Your goal hba1c is under 7.0 to prevent continuous churn buttermaker diabetes complications ( eye , kidney [...] limb 03/12/2013 Current Treatment and Therapy Plans Adult BMT/ONC - Blood and/or Platelet Administration for Outpatient* Plan Start Date:01/15/2025 Plan Provider:Franklin Phelps MD PhD Linked Problems Duodenal adenocarcinoma (HCC )Malignant neoplasm of head of pancreas (HCC)Anemia, unspecified type Treatment Medications No medications scheduled. FOLFIRINOX: (Fluorouracil / Leucovorin / Irinotecan / OXALIplatin) 14 Day Cycles - Pancreatic* Plan Start Date:12/24/2024 Plan Provider:Franklin Phelps MD PhD Linked Problems Malignant neoplasm of head o f pancreas (HCC)Malignant neoplasm metastatic to liver (HCC) Treatment Medications Current Day (Day 1 , Cycle 5 - Planned for 03/04/2025) Next Day (Day 1, Cycle 6 - Planned for 03/18/2025) dexAMETHasone (DECADRON)fluorouracil (ADRUCIL)fluorouracil (ADRUCIL) infusion - for home infusion (ADRUCIL)IRINOtecan (CAMPTOSAR)IRINOtecan (CAMPTOSAR) IVPB in 250 mLleucovorinleucovorin IVPB in 250 mLoxaliplatin (ELOXATIN)oxaliplatin (ELOXATIN) IVPB fluorouraciL (ADRUCIL) 2,700 mg in cadd cassette 54 mL infusion - for home infusionIRINOtecan (CAMPTOSAR) 220 mg in dextrose 5% 250 mL IVPBleucovorin 900 mg in dextrose 5% 250 mL IVPBoxaliplatin (ELOXATIN) 190 mg in dextrose 5% 250 mL IVPB fluorouraciL (ADRUCIL) 2,700 mg in cadd cassette 54 mL infusion - for home infusionIRINOtecan (CAMPTOSAR) 220 mg in dextrose 5% 250 mL IVPBleucovorin 900 mg in dextrose 5% 250 mL IVPBoxaliplatin (ELOXATIN) 190 mg in dextrose 5% 250 mL IVPB IV Maintenance Therapy Plan* Plan Start Date:02/11/2025 Plan Provider:Gracie Trujillo MD PhD Linked Problems Duodenal adenocarcinoma (HCC ) Treatment Medications No medications scheduled. Past Treatment and Therapy Plans Oncology Chemotherapy Treatment Plan Name Start Date Discontinue Date Treatment Medications Discontinue Reason Plan Provider Cycles mFOLFOX6+Juanita: (Fluorouracil / Leucovorin / OXALIplatin / Bevacizumab) 14 Day Cycles - Colon/Rectum 10/29/2024 01/08/2025 bevacizumab-aw wb (MVASI)fluorou racil (ADRUCIL)leuco vorinoxaliplat in (ELOXATIN) Provider Discretion Franklin Phelps MD PhD Treatment not started Oncology Treatment (2) Plan Name Start Date Discontinue Date Treatment Medications Discontinue Reason Plan Provider Cycles Gemcitabine / Albumin-bound PACLItaxel (Abraxane) 28 Day Cycles - Pancreas 10/29/2024 12/24/2024 albumin-bound PACLItaxel (ABRAXANE)albu min-bound PACLItaxel (ABRAXANE) 5 mg/mLdexAMETHa sone (DECADRON)gemc itabine (GEMZAR)gemcit abine (GEMZAR) IVPB in 250 mL (using 38 mg/mL gemCITabine) (J9201) Progression Franklin Phelps MD PhD 2 of 6 cycles started Lifetime Dose Tracking * Chemical Lifetime Dose Automatic Entry Manual Entr y Fluoro Time 1.292 minutes 1.292 minutes 0 minutes Air kerma at the reference point (Ka,r) 50.9 mGy 5 0.9 mGy 0 mGy DLP 4,488 mGycm 4,488 mGycm 0 mGycm Resolved Problems Problem Noted Date Diagnosed Date Resolved Date Morbid (severe) obesity due to excess calories 01/13/2022 09/16/2022 Body mass index 40.0-44.9, adult ([facility]) 01/13/2022 09/16/2022 Hyperlipidemia 09/21/2017 09/16/2022 Assessment & Plan (12/22/2017 10:39 AM CDT): LDL at goal on current dose of statin Assessment & Plan (09/21/2017 2:11 PM CDT): Continue statin therapy BMI 40.0-44.9, adult 06/21/2017 023 Assessment & Plan (09/02/2020 4:22 PM REGIONAL REHABILITATION DIRECTOR): Patient refusing the consideration for bariatric surgery Phentermine was started because elevated blood pressure Will try Wellbutrin Assessment & Plan (09/13/2019 2:22 PM CDT): Importance of following diet and exercising discussed. Assessment & Plan (02/06/2019 3:14 PM CDT): Recommend he try keto diet again Assessment & Plan (12/22/2017 10:39 AM CDT): Ketogenic diet reviewed Morbid obesity ([facility]) 06/21/2017 Assessment & Plan (04/06/2021 1:02 PM CDT): Worsening Low calorie diet discussed Start phentermine Assessment & Plan (12/21/2019 10:57 AM CDT): Continues to lose wt with focus on steady caloric intake , intermittent fasting, phentermine. Assessment & Plan (05/10/2019 4:18 PM REGIONAL REHABILITATION DIRECTOR): Diet and exercise were discussed. 1200 Calorie diet advised 45-60 min aerobic / resistance exercise most days of the week recommended. Start Phentermine Bariatric surgery medically indicated . Pt seems to agreed Referral sent to [facility] bariatric center. Assessment & Plan (10/21/2018 9:02 PM CDT): Importance of following diet and exercising discussed. Assessment & Plan (09/21/2017 2:12 PM CDT): Importance of following diet and exercising discussed.
--- OUTSIDE RECORDS SUMMARY | 2025-03-03 11:43 | XMS_ITS | Encounter Summary ---
Author Organization [facility] Address [address] [place] [address] Phone Care Team Providers Care Port Drier Name Role Phone Duran Montero MD Primary Care Provider [phone] Vu Condon DO Primary Care Provider [phone] Heidi Montes De Oca MD Unavailable Franklin Phelps MD PhD Unavailable [phone] Encounter Details Date Type Department Care Team [...] on file Legal Sex Male 8:47 PM FORM STRIPPER Gender Identity Male 12/29/2020 10:31 AM CDT Sexual Orientation Straight 12/29/2020 10 :31 AM CDT documented as of this encounter Plan of Treatment Not on file documented as of this encounter Goals Goal Patient Goal Type Associated Problems Recent Progress Patient-Stated? Author [facility] Improving(04/2020 12:07 PM FORM STRIPPER) Mariana Camejo, RN Note: Patient will establish [...] Diagnoses Not on filedocumented in this encounter Additional Health Concerns Infection Onset Date Last Indicated Resolved Time COVID: Suspected 01/06/2025 01/06/2025 01/06/2025 2:58 PM CDT documented as of this encounter Care Teams Port Drier Relationship Specialty Start Date End Date Duran Montero MD [address] [place] [address] PCP - General 09/24/16 10/03/24 Vu Condon DO [address] [place] [address] PCP - General Internal Medicine 10/04/24 Heidi Montes De Oca MD [address] [place] [address] Transplant Hepatology 10/09/24 11/26/24 Franklin Phelps MD PhD [address] [place] [address] Medical Oncologist/Speech Pathologist Assistant Medical Oncology 10/25/24 documented as of this encounter
--- OUTSIDE RECORDS SUMMARY | 2025-03-03 11:44 | XMS_ITS | Clinical Summary ---
Author Organization [facility] Address [address] [place] [address] Phone Care Team Providers Care Ecosystem Ecology Professor Name Role Phone Unavailable Primary Care Provider [...] (1 of 2) 2015 INFLUENZA VACCINE (#1) 2025
--- OUTSIDE RECORDS SUMMARY | 2025-03-03 11:44 | XMS_ITS | Clinical Summary ---
Author Organization [facility] Address [address] [place] [address] Care Team Providers Care Release Engineer Name Role Phone Vu Condon DO Primary Care Provider [phone] Franklin Ledezma MD PhD Unavailable [phone] Allergies Active Allergy Reactions Criticality Noted Date Comments Dapagliflozin Propanediol Rash Medium 10/15/2024 Dapagliflozin Other (See comments) Medium 10/21/2018 Mycotic infection Penicillins Other (See comments) Low Rash. PEN-fast 0. Given Augmentin 01/08/2025 and tolerated well. Medications latanoprost (XALATAN) 0.005 % ophthalmic solutionIndicati ons:glaucoma prevention Administer 1 drop into both eyes nightly 019 Active valsartan-hydroc hlorothiazide (DIOVAN-HCT) 160-25 mg per tabletIndication s:hypertension Take 1 tablet by mouth every morning Active timolol (TIMOPTIC) 0.25 % ophthalmic solution Administer 1 drop into both eyes daily 023 Active fluticasone propionate (FLONASE) 50 mcg/actuation nasal spray SHAKE LIQUID AND USE 2 SPRAYS IN EACH NOSTRIL DAILY NEEDED FOR NASAL CONGESTION 024 Active pen needle, diabetic (BD Ultra-Fine Short Pen Needle) 31 gauge x 16 needleIndication s:Type 2 diabetes mellitus with hyperglycemia, with long-term [...] 3 025 Active glimepiride (AMARYL) 2 mg tabletIndication s:Type 2 diabetes mellitus with hyperglycemia, with long-term current use of insulin ([facility]) TAKE 1 TABLET DAILY BEFORE BREAKFAST 90 tablet 3 025 Active atorvastatin (LIPITOR) 20 mg tablet TAKE 1 TABLET DAILY 90 tablet [address] (PROTONIX) 40 mg EC tablet Take 1 tablet (40 mg total) by mouth every 12 (twelve) hours 025 Active lidocaine-priloc henry (EMLA) creamIndications :Administration of Local Anesthesia Place cream over port site 30-45 minutes prior to each use and cover with plastic wrap or a hyhsn-w-rwed. 30 g 6 025 Active metFORMIN XR (GLUCOPHAGE XR) 500 mg 24 hr tabletIndication s:Type 2 diabetes mellitus with hyperglycemia, with long-term current use of insulin ([facility]) TAKE 2 TABLETS TWICE A DAY 360 tablet 3 025 Active insulin glargine (LANTUS) 100 unit/mL (3 mL) pen for injectionIndicat ions:Type 2 diabetes mellitus with hyperglycemia, with long-term current use of insulin ([facility]) Inject 80 Units under the skin nightly 45 mL 5 025 Active oxyCODONE-acetam inophen (PERCOCET) 10-325 mg per tabletIndication s:Duodenal adenocarcinoma (HCC) Take 1 tablet by mouth every 6 (six) hours as needed for pain 120 tablet 025 Active polyethylene glycol (MIRALAX) 17 gram/dose bulk powder Take 17 g by mouth 2 (two) times a day as needed (constipation) 025 Active dexAMETHasone (DECADRON) 4 mg tabletIndication s:Malignant neoplasm of head of pancreas (HCC),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 24 tablet 2 025 Active ondansetron (ZOFRAN) 8 mg tabletIndication s:Malignant neoplasm of head of pancreas (HCC),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 24 tablet 3 025 Active prochlorperazine (Compazine) 10 mg tabletIndication s:Malignant neoplasm of head of pancreas (HCC),Malignant neoplasm metastatic to liver (HCC) Take 1 tablet (10 mg total) by mouth every 6 (six) hours as needed for nausea or vomiting Use first for nausea. 120 tablet 3 025 Active loperamide (IMODIUM) 2 mg capsuleIndicatio ns:Malignant neoplasm of head of pancreas (HCC),Malignant neoplasm metastatic to liver (HCC) Take 2 caps (4 mg) by mouth with first onset of diarrhea, 1 cap (2 mg) after each loose stool thereafter. Max 8 caps (16 mg) per 24 hours. 60 capsule 3 025 Active acyclovir (ZOVIRAX) 200 mg capsule Take 1 capsule (200 mg total) by mouth 4 (four) times a day 025 Active diphenoxylate-at ropine (LOMOTIL) 2.5-0.025 mg per tabletIndication s:Chemotherapy-I nduced Diarrhea,diarrhe a Take 1 tablet by mouth 4 (four) times a day as needed for diarrhea 30 tablet 2 025 Active apixaban (Eliquis) 5 mg tabletIndication s:Venous Thrombosis Take 1 tablet (5 mg total) by mouth 2 (two) times a day 180 tablet 3 025 02/06 Active FreeStyle Treasure 3 Plus Sensor deviceIndication s:Type 2 diabetes mellitus with hyperglycemia, with long-term current use of insulin ([facility]) Change sensor every 15 days 6 each 3 025 Active FreeStyle Treasure 2 Plus Sensor deviceIndication s:Type 2 diabetes mellitus with hyperglycemia, with long-term current use of insulin ([facility]) Change sensor every 15 days 6 each 1 025 02/26 Discontinued apixaban (ELIQUIS) 5 mg tabletIndication s:Prevention of Recurrent Venous Thrombosis in Malignancy,Venou s Thrombosis Take 1 tablet (5 mg total) by mouth 2 (two) times a day 60 tablet 6 025 02/11 Discontinued Active Problems Problem Noted Date Diagnosed Date [...] Phentermine Assessment & Plan (05/06/2023 9:22 AM CUSTOMER ENGAGEMENT MANAGER): Start phentermine Diet and exercise Assessment & Plan (09/16/2022 11:32 AM CDT): Chronic problem. Discussed healthy diet and importance of regular physical activity (20- 30min/day, 150min/wk). RSI on CPAP 05/07/2021 Primary osteoarthritis of left shoulder 04/14/20 21 Overview (04/14/2021): Added automatically from request for surgery [id number] Diabetic polyneuropathy asso ciated with type 2 [...] update lipid panel. Verified that he uses [employer]. Aware to check results/results letter in [facility]. Will contact by phone if needed. Assessment & Plan (04/06/2024 9:02 AM CDT): Chronic problem, controlled on current Atovastatin 20mg. Last lipid panel: 01/13/23 LDL=93, [place]=585. No changes at this time. Will update lipid panel today. Verified that he uses [employer]. Aware to check results/results letter in [employer]. Will contact by phone if needed. Assessment & Plan (01/13/2023 10:12 AM CDT): Chronic problem, controlled on current Atovastatin 20mg. Last lipid panel: 01/13/22 LDL=80, TG=95. No changes at this time. Will update lipid panel today. Verified that he uses [facility]. Aware to check results/results letter in [employer]. Will contact by phone if needed. Assessment & Plan (09/16/2022 11:34 AM CDT): Chronic problem, controlled on current Atovastatin 20mg. Last lipid panel: 01/13/22 LDL=80, TG=95. No changes at this time. Assessment & Plan (05/13/2022 10:18 AM CUSTOMER ENGAGEMENT MANAGER): Chronic problem. On statin therapy, no changes. Assessment & Plan (01/13/2022 9:39 AM CDT): Chronic, well controlled Low fat Low cholesterol diet Exercise Continue statin therapy Check lipid profile Assessment & Plan (08/17/2021 4:39 PM CUSTOMER ENGAGEMENT MANAGER): Chronic, well controlled Continue current meds Assessment & Plan (12/21/2019 10:56 AM CDT): At goal on current medications. Continue statin therapy. Assessment & Plan (09/13/2019 2:22 PM CDT): At goal on current medications. Continue statin therapy. Assessment & Plan (05/10/2019 4:20 PM CUSTOMER ENGAGEMENT MANAGER): Goal of treatment , LDL cholesterol less [...] panel Assessment & Plan (06/06/2018 2:28 PM CUSTOMER ENGAGEMENT MANAGER): Goal of treatment , LDL cholesterol less [...] update labs today. Verified that he uses [facility]. Aware to check results/results letter in [facility]. Will contact by phone if needed. Assessment & Plan (01/13/2023 10:08 AM CDT): Chronic problem, controlled on current valsartan-hctz 160-25mg daily. No changes at this time. Will update labs today. Verified that he uses [employer]. Aware to check results/results letter in [facility]. Will contact by phone if needed. Assessment & Plan (09/16/2022 11:32 AM CDT): Chronic problem, controlled on current valsartan-hctz 160-25mg daily. No changes at this time. Assessment & Plan (05/13/2022 10:18 AM CUSTOMER ENGAGEMENT MANAGER): Controlled on current medications, no changes. Assessment & Plan (01/13/2022 9:40 AM CDT): Chronic, well controlled Continue current meds Check MA Assessment & Plan (12/21/2019 10:55 AM CDT): Controlled on current medications. Continue plan. Assessment & Plan (09/13/2019 2:22 PM CDT): Controlled on current medications. Continue plan. Assessment & Plan (05/10/2019 4:19 PM CUSTOMER ENGAGEMENT MANAGER): Goal blood pressure is less than 140/85 Low salt diet recommended Daily aerobic exercise Continue current meds, including NICHOLE-I or ARB Check microalbumin Assessment & Plan (02/06/2019 3:15 PM CDT): Controlled on current medications. Assessment & Plan (10/21/2018 9:02 PM CDT): At goal on current medications. Assessment & Plan (06/06/2018 2:28 PM CUSTOMER ENGAGEMENT MANAGER): Goal blood pressure is less than 140/85 Low salt diet recommended Daily aerobic exercise Continue current meds, including NICHOLE-I or ARB Assessment & Plan (12/22/2017 10:39 AM CDT): Controlled on current medications. Assessment & Plan (09/21/2017 2:12 PM CDT): Controlled on current medications. Assessment & Plan (06/21/2017 11:48 AM CUSTOMER ENGAGEMENT MANAGER): Goal blood pressure is less than 140/85 Low salt diet recommended Daily aerobic exercise Continue current meds, including NICHOLE-I or ARB Nontoxic uninodular goiter 11/10/2013 Overview (09/29/2016): NONTOX UNINODULAR GOITER Assessment & Plan (09/02/2020 4:22 PM CUSTOMER ENGAGEMENT MANAGER): Thyroid ultrasound performed today Right lower thyroid [...] Will update labs. Verified that he uses [facility]. Aware to check results/results letter in [facility]. Will contact by phone if needed. DM [...] update labs today. Verified that he uses [facility]. Aware to check results/results letter in [facility]. Will contact by phone if needed. UTD [...] Humalog Assessment & Plan (05/06/2023 9:22 AM CUSTOMER ENGAGEMENT MANAGER): Hba1c was Lab Results Component Value Date [...] update labs today. Verified that he uses [facility]. Aware to check results/results letter in [facility]. Will contact by phone if needed. DM [...] sugars. Assessment & Plan (05/13/2022 10:20 AM CUSTOMER ENGAGEMENT MANAGER): Chronic problem, stable per Treasure download. We [...] hypoglycemia Assessment & Plan (08/17/2021 4:38 PM CUSTOMER ENGAGEMENT MANAGER): Hba1c was Lab Results Component Value Date [...] Metformin Assessment & Plan (09/02/2020 4:21 PM CUSTOMER ENGAGEMENT MANAGER): Hba1c was Lab Results Component Value Date [...] exam. Assessment & Plan (05/10/2019 4:19 PM CUSTOMER ENGAGEMENT MANAGER): Hba1c was Lab Results Component Value Date [...] exercise. Assessment & Plan (06/06/2018 2:39 PM CUSTOMER ENGAGEMENT MANAGER): Hba1c was Lab Results Component Value Date [...] accountability. Assessment & Plan (06/21/2017 2:06 PM CUSTOMER ENGAGEMENT MANAGER): Your Hba1c today was: 9.7 meaning a [...] 01/13/2022 09/16/2022 Body mass index 40.0-44.9, adult ([facility]) 01/13/2022 09/16/2022 Hyperlipidemia 09/21/2017 09/16/2022 Assessment & Plan (12/22/2017 10:39 AM CDT): LDL at goal on current dose of statin Assessment & Plan (09/21/2017 2:11 PM CDT): Continue statin therapy BMI 40.0-44.9, adult 06/21/2017 023 Assessment & Plan (09/02/2020 4:22 PM CUSTOMER ENGAGEMENT MANAGER): Patient refusing the consideration for bariatric surgery Phentermine was started because elevated blood pressure Will try Wellbutrin Assessment & Plan (09/13/2019 2:22 PM CDT): Importance of following diet and exercising discussed. Assessment & Plan (02/06/2019 3:14 PM CDT): Recommend he try keto diet again Assessment & Plan (12/22/2017 10:39 AM CDT): Ketogenic diet reviewed Morbid obesity (CMS/HCC) 06/21/2017 Assessment & Plan (04/06/2021 1:02 PM CDT): Worsening Low calorie diet discussed Start phentermine Assessment & Plan (12/21/2019 10:57 AM CDT): Continues to lose wt with focus on steady caloric intake , intermittent fasting, phentermine. Assessment & Plan (05/10/2019 4:18 PM CUSTOMER ENGAGEMENT MANAGER): Diet and exercise were discussed. 1200 Calorie diet advised 45-60 min aerobic / resistance exercise most days of the week recommended. Start Phentermine Bariatric surgery medically indicated . Pt seems to agreed Referral sent to [facility] bariatric center. Assessment & Plan (10/21/2018 9:02 PM CDT): Importance of following diet and exercising discussed. Assessment & Plan (09/21/2017 2:12 PM CDT): Importance of following diet and exercising discussed. Encounters Date Type Department Care Team Description 03/01/2025 9:47 AM CDT - 03/01/2025 11:59 PM CDT Hospital Encounter [facility] [place] [address] [facility] [address] [place] [address] Malignant neoplasm of head of pancreas (HCC); Malignant neoplasm metastatic to liver (HCC) Discharge Disposition: Discharge to home or self care 02/28/2025 Results Follow-Up [facility] Diabetes and Endocrinology [address] [place] [phone] Haily Siddiqi NP Lipid panel, Albumin Creatinine Ratio, Urine 02/26/2025 9:25 AM CDT Lab [address] [address] Type 2 diabetes mellitus with hyperglycemia, with long-term current use of insulin (HCC); Hyperlipidemia associated with type 2 diabetes mellitus (HCC) 02/26/2025 8:30 AM CDT Office Visit [facility] Diabetes and Endocrinology [address] [place] [phone] Haily Siddiqi, LEANNA Type 2 diabetes mellitus with hyperglycemia, with long-term current use of insulin (HCC) (Primary Dx); Hyperlipidemia associated with type 2 diabetes mellitus (HCC); Diabetic polyneuropathy associated with type 2 diabetes mellitus (HCC); Pancreatic adenocarcinoma (HCC) 02/11/2025 12:00 PM CDT Infusion [facility] - Infusion [address] [place] [address] Floor 5 [place] [address] Duodenal adenocarcinoma (HCC) (Primary Dx); Malignant neoplasm of head of pancreas (HCC); Malignant neoplasm metastatic to liver (HCC) 02/11/2025 11:15 AM CDT Office Visit [facility] Medicine Oncology [address] [place] [address] 5 [place] [address] Franklin Ledezma MD PhD Malignant neoplasm metastatic to liver (HCC) (Primary Dx); Malignant neoplasm of head of pancreas (HCC) 02/11/2025 10:15 AM CDT Clinical Support [facility] - Lab Collection [address] [place] [address] 5 [place] [address] Malignant neoplasm of head of pancreas (HCC); Malignant neoplasm metastatic to liver (HCC) 02/11/2025 Documentation [facility] Nutrition Counseling [address] [place] [phone] 01/28/2025 12:30 PM CDT Infusion [facility] - Infusion [address] [place] [address] Floor 5 [place] [address] Malignant neoplasm metastatic to liver (HCC) (Primary Dx); Malignant neoplasm of head of pancreas (HCC) 01/28/2025 11:30 AM CDT [facility] [address] [place] [address] 5 [place] [address] Franklin Ledezma MD PhD Malignant neoplasm metastatic to liver (HCC) (Primary Dx); Duodenal adenocarcinoma (HCC); Malignant neoplasm of head of pancreas (HCC); Anemia, unspecified type 01/28/2025 10:30 AM CDT Clinical Support [facility] [employer] - Lab Collection [address] [place] [address] 5 [place] [address] Malignant neoplasm of head of pancreas (HCC); Malignant neoplasm metastatic to liver (HCC); Duodenal adenocarcinoma (HCC); Anemia, unspecified type 01/28/2025 Documentation [facility] [address] [facility] [place] [address] 01/28/[address] [facility] Medicine Oncology [address] [place] [address] Floor 5 [place] [address] Franklin Ledezma MD PhD 01/15/2025 2:50 PM CDT - 01/15/2025 5:59 PM CDT Hospital Encounter [facility] [employer] [facility] ([facility]) [address] [place] [address] Duodenal adenocarcinoma (HCC) (Primary Dx); Malignant neoplasm of head of pancreas (HCC); Malignant neoplasm metastatic to liver (HCC); Anemia, unspecified type Discharge Disposition: Discharge to home or self care 01/14/2025 1:00 PM CDT Infusion [facility] - Infusion [address] [place] [address] Floor 6 [place] [address] Malignant neoplasm metastatic to liver (HCC) (Primary Dx); Malignant neoplasm of head of pancreas (HCC) 01/14/2025 11:45 AM CDT Office Visit [facility] Medicine Oncology [address] [place] [address] 5 [place] [address] Franklin Ledezma MD PhD Malignant neoplasm metastatic to liver (HCC) (Primary Dx); Malignant neoplasm of head of pancreas (HCC) 01/14/2025 10:30 AM CDT Clinical Support [facility] Medicine Oncology Lab [address] [place] [address] 5 [place] [address] Malignant neoplasm of head of pancreas (HCC); Malignant neoplasm metastatic to liver (HCC) 01/14/2025 10:15 AM CDT Clinical Support [facility] - Lab Collection [address] [place] [address] Floor 5 [place] [address] Malignant neoplasm of head of pancreas (HCC); Malignant neoplasm metastatic to liver (HCC) 01/14/[address] [facility] Medicine Oncology [address] [place] [address] Floor 5 [place] [address] Franklin Ledezma MD PhD 01/07/2025 6:55 AM CDT Ancillary Procedure [facility] Medicine Vascular Lab [address] [facility] [address] [place] [address] 01/06/2025 11:45 AM CDT - 01/08/2025 6:03 PM CDT Hospital Encounter [facility] 1 [place] [address] Maicol Nunez MD Griffey, Richard Thomas, MD Grierson, Patrick, MD PhD Jah, Nasir Amin MD Sepsis, due to unspecified organism, unspecified whether acute organ dysfunction present (HCC) (Primary Dx); Malignant neoplasm of pancreas, unspecified location of malignancy (HCC) Discharge Disposition: Discharge to home or self care 01/01/2025 [facility]phone [facility] Floor 5 [place] [address] Franklin Ledezma MD PhD 12/31/2024 2:00 PM CDT Infusion [facility] - Infusion [address] [facility] Floor 6 [place] [address] Malignant neoplasm of head of pancreas (HCC) (Primary Dx); Malignant neoplasm metastatic to liver (HCC) 12/31/2024 1:30 PM CDT Clinical Support [facility] - Lab Collection [address] [facility] Floor 5 [place] [address] Malignant neoplasm of head of pancreas (HCC); Malignant neoplasm metastatic to liver (HCC) 12/31/2024 1:00 PM CDT Clinical Support [facility] Medicine Oncology Lab [facility] Floor 5 [place] [address] Malignant neoplasm of head of pancreas (HCC); Malignant neoplasm metastatic to liver (HCC) 12/31/[address] [facility] Medicine Oncology [address] [place] [address] Floor 6 [place] [address] Yamile Selby MD 12/31/[address] [facility] Medicine Oncology [address] [place] [address] Floor 5 [place] [address] Franklin Ledezma MD PhD 12/31/2024 Orders Only [facility] [address] [place] [address] 5 [place] [address] Franklin Ledezma MD PhD 12/31/2024 Orders Only [facility] [address] [place] [address] 5 [place] [address] Franklin Ledezma MD PhD Malignant neoplasm of head of pancreas (HCC) (Primary Dx); Malignant neoplasm metastatic to liver (HCC) 12/30/2024 Orders Only [facility] [address] [place] [address] Floor 8 [place] [address] Franklin Ledezma MD PhD 12/27/2024 11:02 AM CDT - 12/27/2024 11:59 PM CDT [facility] ([facility]) [address] [place] [address] Franklin Ledezma MD PhD Malignant neoplasm metastatic to liver (HCC); Duodenal adenocarcinoma (HCC); Malignant neoplasm of head of pancreas (HCC) Discharge Disposition: Discharge to home or self care 12/27/[address] [facility] Medicine Oncology [address] [place] [address] 5 [place] [address] Kaitlin Robles RN 12/27/2024 Telephone [facility] [address] [place] [address] 5 [place] [address] Kaitlin Robles RN 12/27/2024 Orders Only [facility] [address] [place] [address] 5 [place] [address] Franklin Ledezma MD PhD 12/26/2024 Telephone [facility] [address] [place] [address] 5 [place] [address] Kaitlin Robles RN 12/26/2024 Orders Only [facility] [address] [place] [address] 5 [place] [address] Franklin Ledezma MD PhD Malignant neoplasm metastatic to liver (HCC) (Primary Dx); Duodenal adenocarcinoma (HCC); Malignant neoplasm of head of pancreas (HCC) 12/25/[address] [facility] Medicine Oncology [address] [facility] Floor 5 [place] [address] Franklin Ledezma MD PhD 12/25/2024 Results [facility] Floor 5 [place] [phone] Barbara Weinberg PA US Vein Duplex Lower Extremity Bilateral Complete 12/24/2024 2:30 PM CDT Clinical Support [facility] [employer] - Lab Collection [address] [facility] Floor 5 [place] [address] 12/24/2024 1:45 PM CDT Ancillary Procedure [facility] Medicine Vascular Lab at the [employer] [facility] [address] [place] [address] Advanced Medicine 8th [place] [address] [place] [address] Malignant neoplasm of head of pancreas (HCC); Malignant neoplasm metastatic to liver (HCC) 12/24/2024 11:30 AM CDT [facility] [address] [place] [address] Floor 5 [place] [phone] Franklin Ledezma MD PhD Malignant neoplasm metastatic to liver (HCC) (Primary Dx); Malignant neoplasm of head of pancreas (HCC) 12/24/2024 10:30 AM CDT Clinical Support [facility] - Lab Collection [facility] Floor 5 [place] [address] Malignant neoplasm of head of pancreas (HCC); Malignant neoplasm metastatic to liver (HCC) 12/24/2024 8:58 AM CDT - 12/24/2024 11:59 PM CDT Hospital Encounter [facility] [address] [place] [address] Franklin Ledezma MD PhD Malignant neoplasm of head of pancreas (HCC); Malignant neoplasm metastatic to liver (HCC) Discharge Disposition: Discharge to home or self care 12/10/2024 3:00 PM CDT Infusion [facility] [employer] - Infusion [address] [facility] Floor 5 [place] [address] Malignant neoplasm metastatic to liver (HCC) (Primary Dx); Malignant neoplasm of head of pancreas (HCC) 12/10/2024 2:00 PM CDT Clinical Support [facility] - Lab Collection [address] [facility] Floor 5 [place] [address] Malignant neoplasm of head of pancreas (HCC); Malignant neoplasm metastatic to liver (HCC) 12/08/2024 Orders Only [facility] [address] [facility] Floor 8 [place] [address] Franklin Ledezma MD PhD Malignant neoplasm of head of pancreas (HCC) (Primary Dx); Malignant neoplasm metastatic to liver (HCC) 12/03/2024 3:30 PM CDT Infusion [facility] [employer] - Infusion [address] [facility] Floor 5 [place] [address] Malignant neoplasm metastatic to liver (HCC) (Primary Dx); Malignant neoplasm of head of pancreas (HCC) 12/03/2024 2:00 PM CDT Clinical Support [facility] - Lab Collection [address] [facility] Floor 5 [place] [address] Malignant neoplasm of head of pancreas (HCC); Malignant neoplasm metastatic to liver (HCC) 12/02/2024 Orders Only [facility] [address] [facility] Floor 8 [place] [address] Franklin Ledezma MD PhD from Last 3 Months Surgical History Surgery Date Site/Laterality Comments CARPAL TUNNEL RELEASE ROTATOR CUFF REPAIR 06/27/2004 - 06/26/2005 Right KNEE ARTHROSCOPY Bilateral TOTAL HIP ARTHROPLASTY Left PORT PLACEMENT CHEST >5 YEARS 10/23/2024 N/A Medical History Medical History Date Comments Type 2 diabetes mellitus Diabete s type 2 Hypertension Claustrophobia Hypercholesteremia Sleep apnea [...] Passive Smoke Exposure: Never Smokeless Tobacco: Never Tobacco Cessation:Counseling Given: Not Answered Alcohol Use Standard Drinks/Week Comments Yes 6 (1 standard drink = 0.6 oz pur e alcohol) [facility] Utilities Answer Date Recorded In the [...] answer 01/08/2025 How often do you attend chur or samaritan services? Patient unable to answer 01/08/2025 Do you belong to any clubs o r organizations such as shinto groups, unions, fraternal or athletic groups, or [...] any time in the past 12 m [facility], were you homeless or living in a prison (including now)? Patient unable to answer 01/08/2025 Personal Safety Answer Date Recorded Have you ever been in or are you currently in a harmful physical or emotional relationship or is someone making you feel afraid or unsafe? Denies 01/06/2025 Sex and Gender Information Value Date Recorded Sex Assigned at Not on file Legal Sex Male 8:47 PM CUSTOMER ENGAGEMENT MANAGER Gender Identity Male 12/29/2020 10:31 AM CDT Sexual Orientation Straight 12/29/2020 10 :31 AM CDT Obstetrics History Last Filed Vital Signs Vital Sign Reading Time Taken Comments Blood Pressure 108/60 02/26/2025 8:49 AM CDT Pulse 71 02/26/2025 8:49 AM CDT Temperature 36.2 C (97.2 F) 02/11/2025 10:52 AM CDT Respiratory Rate 16 02/26/2025 8:49 AM CDT Oxygen Saturation 98% 02/11/2025 10: 52 AM CDT Inhaled Oxygen Concentration - - Weight 102.2 kg (225 lb 3.2 oz) 02/26/2025 8:49 AM CDT Height 172.7 cm (5' 8) 02/26/2025 8:49 AM CDT Body Mass Index 34.24 02/26/2025 8:49 AM CDT Plan of Treatment Health Maintenance [...] 01/14/2024 01/13/2023, 08/17/2021, 09/02/2020, Additional history exists Dilated Eye Exam 01/16/2025 01/17/2024, , 01/05/2022, Additional history exists Influenza Vaccine (#1) 2025 Hemoglobin A1C 08/26/2025 02/26/2025, 12/25, 04/06/2024, Additional history exists eGFR 02/11/2026 02/11/2025, 08/0 09/2024, 01/14/2025, Additional history exists Albumin Creatinine Ratio, Urine 02/26/2026 02/26/2025, 04/06/2024, 01/13/2023, Additional history exists Foot Exam 02/26/2026 02/26/2025, 03/27, 09/16/2022, Additional history exists Lipid Panel 02/26/2026 02/26/2025, 03/27, 01/13/2023, Additional history exists Goals Goal Patient Goal Type Associated Problems Recent Progress Patient-Stated? Author BH-Pain Behavioral Health Improving(04/2020 12:07 PM CUSTOMER ENGAGEMENT MANAGER) Mariana Camejo, RN Note: Patient will establish a comfort-function goal and identify the pain level that will allow the patient to perform desired activities and achieve an acceptable quality of life. Medical Devices Implanted Type Area Lusterer Device Identifier Shelf Expiration Date Model / Serial / Lot [employer] 6191-1-010 Simplex P Radiopaque Full Dose Cement Bone Sterile - Sna - [id number] Implanted:Qty: 1 on 05/13/2021 by Harinder Orosco MD at [facility] Bone Cement Left: Shoulder [employer] 05/26/2023 6191-1-0 10 / NA / [id number] [employer] [id number] Aequalis Perform Cortiloc 60mm Peg Shoulder Large Component Latex Free - [id number] - [id number] Implanted:Qty: 1 on 05/13/2021 by Harinder Orosco MD at [facility] Other - see comments Left: Shoulder [employer] [id number] 08/13/2025 [id number] / [id number] / [employer] [id number] Head Perform Cocr Modular Humeral - [id number] - [id number] Implanted:Qty: 1 on 05/13/2021 by Harinder Orosco MD at [facility] Other - see comments Left: Shoulder [employer] [id number] 11/14/2025 [id number] / [id number] / [employer] [id number] Transitional Care Manager Perform Centered Modular Humeral Head Ti - Sna - [id number] Implanted:Qty: 1 on 05/13/2021 by Harinder Orosco MD at [facility] Other - see comments Left: Shoulder [employer] [id number] 04/08/2026 [id number] / NA / [employer] [id number] Stem Perform Sz 3 Humeral - [id number] - [id number] Implanted:Qty: 1 on 05/13/2021 by Harinder Orosco MD at [facility] Other - see comments Left: Shoulder [employer] [id number] 09/18/2025 [id number] / [id number] / Angio [employer] Xcela Power Port 8fr [id number] - [id number] Implanted:Qty: 1 on 10/23/2024 at [facility] Other - see comments [employer] 05/07/2029 [id number] / / [id number] Lt Thr Hip Explanted Type Area Lusterer Device Identifier Shelf Expiration Date Model / Serial / Lot [employer] Inc [id number] Guide Pin Perform 3.0 X 100mm - Sna - [id number] Explanted:Qty : 1 on 05/13/2021 by Harinder Orosco MD at [facility] Other - see comments Left: Shoulder [employer] [id number] / NA / Description:For fixation pur poses only. Not intended for implant. Procedures Procedure Name Priority Date/Time Associated Diagnosis Comments CT CHEST ABDOMEN PELVIS W CONTRAST Schedule CHIRAG, Read CHIRAG (Appt Today, Awaiting Results) 03/01/2025 10:45 AM CDT Malignant 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) ALBUMIN CREATININE RATIO, URINE Routine 02/26/2025 10:29 AM CDT Type 2 diabetes mellitus with hyperglycemia, with long-term current use of insulin (HCC) LIPID PANEL Routine 02/26/2025 9:39 AM CDT Type 2 diabetes mellitus with hyperglycemia, with long-term current use of insulin (HCC) Hyperlipidemia associated with type 2 diabetes mellitus (HCC) POCT GLUCOSE Routine 02/26/2025 8:47 AM CDT Type 2 diabetes mellitus with hyperglycemia, with long-term current use of insulin (HCC) POCT HEMOGLOBIN A1C Routine 02/26/2025 8 :47 AM CDT Type 2 diabetes mellitus with hyperglycemia, with long-term current use of insulin (HCC) EGFR STAT 02/11/2025 10:20 AM CDT Malignant 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) DIFFERENTIAL AUTO Routine 02/11/2025 10:20 AM CDT Malignant 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) CBC WITH AUTO DIFFERENTIAL Routine 02/11/2025 10:20 AM CDT Malignant 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) COMPREHENSIVE METABOLIC PANEL STAT 02/11/2025 10:20 AM CDT Malignant 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) EGFR STAT 01/28/2025 10:45 AM CDT Malignant 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) DIFFERENTIAL AUTO Routine 01/28/2025 10:45 AM CDT Malignant 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) COMPREHENSIVE METABOLIC PANEL STAT 01/28/2025 10:45 AM CDT Malignant 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) CBC WITH AUTO DIFFERENTIAL Routine 01/28/2025 10:45 AM CDT Malignant 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) CANCER ANTIGEN 19-9 Routine 01/28/2025 10:45 AM CDT Malignant 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) TYPE AND SCREEN STAT 01/28/2025 10:45 AM CDT Malignant neoplasm metastatic to liver (HCC) Duodenal adenocarcinoma (HCC) Malignant neoplasm of head of pancreas (HCC) Anemia, unspecified type TRANSFUSE RED BLOOD CELLS Timed 01/15/2025 3:37 PM CDT Malignant neoplasm of head of pancreas (HCC) Duodenal adenocarcinoma (HCC) Anemia, unspecified type PREPARE RBC Timed 01/15/2025 3:05 PM CDT Malignant neoplasm of head of pancreas (HCC) Duodenal adenocarcinoma (HCC) Anemia, unspecified type TYPE AND SCREEN STAT 01/14/2025 1:48 PM CDT Malignant 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) DIFFERENTIAL AUTO Routine 01/14/2025 10:44 AM CDT Malignant 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) CBC WITH AUTO DIFFERENTIAL Routine 01/14/2025 10:44 AM CDT Malignant 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) EGFR STAT 01/14/2025 10:04 AM CDT Malignant 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) COMPREHENSIVE METABOLIC PANEL STAT 01/14/2025 10:04 AM CDT Malignant 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) POCT GLUCOSE DEVICE Routine 01/08/2025 11:29 AM CDT EGFR STAT 01/08/2025 10:44 AM CDT CREATININE STAT 01/08/2025 10:44 AM CDT HEPATIC FUNCTION PANEL STAT 01/08/2025 10:44 AM CDT CBC WITHOUT DIFFERENTIAL STAT 01/08/2025 10:44 AM CDT PROTIME-INR STAT 01/08/2025 10:44 AM CDT POCT GLUCOSE DEVICE Routine 01/08/2025 7 :40 AM CDT VANCOMYCIN LEVEL TROUGH Timed 01/08/2025 4:28 AM CDT EGFR Routine 01/08/2025 12:42 AM CDT DIFFERENTIAL AUTO Routine 01/08/2025 12:42 AM CDT PHOSPHORUS Routine 01/08/2025 12:42 AM CDT COMPREHENSIVE METABOLIC PANEL Routine 01/08/2025 12:42 AM CDT CBC WITH AUTO DIFFERENTIAL Routine 01/08/2025 12:42 AM CDT POCT GLUCOSE DEVICE Routine 01/07/2025 9 :21 PM CDT POCT GLUCOSE DEVICE Routine 01/07/2025 7 :40 PM CDT POCT GLUCOSE DEVICE Routine 01/07/2025 4 :51 PM CDT POCT GLUCOSE DEVICE Routine 01/07/2025 11:44 AM CDT POCT GLUCOSE DEVICE Routine 01/07/2025 9 :28 AM CDT US VEIN DUPLEX LOWER EXTREMITY BILATERAL COMPLETE IP Routine 01/07/2025 8:46 AM CDT POCT GLUCOSE DEVICE Routine 01/07/2025 7 :50 AM CDT HEMOGLOBIN A1C Routine 01/07/2025 5:30 AM CDT EGFR Routine 01/07/2025 5:30 AM CDT DIFFERENTIAL AUTO Routine 01/07/2025 5:3 0 AM CDT URIC ACID, URINE, RANDOM Routine 01/07/2025 5:30 AM CDT PHOSPHORUS Routine 01/07/2025 5:30 AM CDT COMPREHENSIVE METABOLIC PANEL Routine 01/07/2025 5:30 AM CDT CBC WITH AUTO DIFFERENTIAL Routine 01/07/2025 5:30 AM CDT URINALYSIS, MICROSCOPIC ONLY Routine 01/07/2025 12:04 AM CDT SODIUM, URINE, RANDOM Routine 01/07/2025 12:04 AM CDT OSMOLALITY, URINE Routine 01/07/2025 12:04 AM CDT URINALYSIS AND REFLEX TO MICROSCOPIC Routine 01/07/2025 12:04 AM CDT THROAT CULTURE Routine 01/07/2025 12:04 AM CDT URINALYSIS AND REFLEX TO MICROSCOPIC AND CULTURE STAT 01/07/2025 12:04 AM CDT TRANSFUSE RED BLOOD CELLS Timed 01/06/2025 11:30 PM CDT PREPARE RBC Timed 01/06/2025 10:14 PM CDT POCT GLUCOSE DEVICE Routine 01/06/2025 8 :18 PM CDT IRON PROFILE W/ IBC Routine 01/06/2025 7 :49 PM CDT FERRITIN Routine 01/06/2025 7:49 PM CDT EGFR Routine 01/06/2025 7:49 PM CDT DIFFERENTIAL AUTO Routine 01/06/2025 7:4 9 PM CDT PROTIME-INR Routine 01/06/2025 7:49 PM CDT APTT Routine 01/06/2025 7:49 PM CDT LACTATE DEHYDROGENASE Routine 01/06/2025 7:49 PM CDT URIC ACID Routine 01/06/2025 7:49 PM CDT TYPE AND SCREEN Timed 01/06/2025 7:49 PM CDT PHOSPHORUS Routine 01/06/2025 7:49 PM CDT COMPREHENSIVE METABOLIC PANEL Routine 01/06/2025 7:49 PM CDT CBC WITH AUTO DIFFERENTIAL Routine 01/06/2025 7:49 PM CDT MRSA ONLY (STAPHYLOCOCCUS AUREUS) CULTURE Routine 01/06/2025 7:49 PM CDT MA CRITICAL CARE ILL/INJURED PATIENT INIT 30-74 MIN Routine 01/06/2025 6:03 PM CDT TROPONIN I HIGH-SENSITIVITY 4-HOUR Timed 01/06/2025 4:27 PM CDT SEPSIS LACTATE WITH REFLEX Timed 01/06/2025 4:27 PM CDT POCT GLUCOSE DEVICE Routine 01/06/2025 4 :10 PM CDT TROPONIN I HIGH-SENSITIVITY 2-HOUR Timed 01/06/2025 2:46 PM CDT OSMOLALITY, BLOOD STAT 01/06/2025 12:56 PM CDT EGFR STAT 01/06/2025 12:56 PM CDT DIFFERENTIAL AUTO STAT 01/06/2025 12:56 PM CDT SEPSIS LACTATE WITH REFLEX STAT 01/06/2025 12:56 PM CDT TROPONIN I HIGH-SENSITIVITY SERIES (BASELINE, 2HR, 4HR, 6HR) STAT 01/06/2025 12:56 PM CDT CBC WITH AUTO DIFFERENTIAL STAT 01/06/2025 12:56 PM CDT COMPREHENSIVE METABOLIC PANEL STAT 01/06/2025 12:56 PM CDT BLOOD CULTURE STAT 01/06/2025 12:56 PM CDT BLOOD CULTURE STAT 01/06/2025 12:56 PM CDT RESPIRATORY PATHOGEN PANEL STAT 01/06/2025 12:56 PM CDT XR CHEST PA LATERAL 2 VIEWS ED 01/06/2025 11:51 AM CDT POCT KETONE, BLOOD Routine 01/06/2025 11:45 AM CDT POCT GLUCOSE DEVICE Routine 01/06/2025 11:44 AM CDT ECG 12-LEAD STAT 01/06/2025 11:39 AM CDT POCT GLUCOSE DEVICE Routine 12/31/2024 2 :29 PM CDT EGFR STAT 12/31/2024 1:00 PM CDT Malignant 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) DIFFERENTIAL AUTO Routine 12/31/2024 1:0 0 PM CDT Malignant 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) CBC WITH AUTO DIFFERENTIAL Routine 12/31/2024 1:00 PM CDT Malignant 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) COMPREHENSIVE METABOLIC PANEL STAT 12/31/2024 1:00 PM CDT Malignant 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) CANCER ANTIGEN 19-9 Routine 12/31/2024 1 :00 PM CDT Malignant 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) CT ABDOMEN PELVIS W CONTRAST Schedule CHIRAG, Read CHIRAG (Appt Today, Awaiting Results) 12/27/2024 12:32 PM CDT Malignant neoplasm metastatic to liver (HCC) Duodenal adenocarcinoma (HCC) Malignant neoplasm of head of pancreas (HCC) US VEIN DUPLEX LOWER EXTREMITY BILATERAL COMPLETE Schedule CHIRAG, Read CHIRAG (Appt Today, Awaiting Results) 12/24/2024 4:23 PM CDT Malignant 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) EGFR STAT 12/24/2024 10:50 AM CDT Malignant 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) DIFFERENTIAL AUTO Routine 12/24/2024 10:50 AM CDT Malignant 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) CANCER ANTIGEN 19-9 Routine 12/24/2024 10:50 AM CDT Malignant 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) CBC WITH AUTO DIFFERENTIAL Routine 12/24/2024 10:50 AM CDT Malignant 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) COMPREHENSIVE METABOLIC PANEL STAT 12/24/2024 10:50 AM CDT Malignant 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) CT CHEST ABDOMEN PELVIS W CONTRAST Schedule CHIRAG, Read CHIRAG (Appt Today, Awaiting Results) 12/24/2024 9:38 AM CDT Malignant 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) EGFR STAT 12/10/2024 1:45 PM CDT Malignant 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) MANUAL DIFFERENTIAL Routine 12/10/2024 1 :45 PM CDT Malignant 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) CBC WITH AUTO DIFFERENTIAL Routine 12/10/2024 1:45 PM CDT Malignant 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) COMPREHENSIVE METABOLIC PANEL STAT 12/10/2024 1:45 PM CDT Malignant 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) EGFR STAT 12/03/2024 2:05 PM CDT Malignant 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) MANUAL DIFFERENTIAL Routine 12/03/2024 2 :05 PM CDT Malignant 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) CBC WITH AUTO DIFFERENTIAL Routine 12/03/2024 2:05 PM CDT Malignant 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) COMPREHENSIVE METABOLIC PANEL STAT 12/03/2024 2:05 PM CDT Malignant 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) DIABETES EYE EXAM Routine 01/17/2024 8:11 AM CDT DIABETIC FOOT EXAM Routine 12/12/2019 PSA SCREEN Routine 10/11/2017 11:35 AM CDT from Last 3 Months or Most Recently Relevant to Health Maintenance Results * CT chest abdomen pelvis with [...] Electronically signed by: Natalie Cruz M.D. Franklin Ledezma MD PhD IMG CT PROCEDURES Final Result * Albumin Creatinine Ratio, Urine (02/26/2025 10:29 AM CDT) Albumin Ur 63.1 mg/L Comment: Interpretive Data No reference range established. Current interpretive data was last revised 2018. Creatinine Ur 333.0 mg/dL JOB Comment: Interpretive Data No reference range established. Current interpretive data was last revised 2018. Albumin Creatinine Ratio, Ur 19 1 - 29 mg/g JOB Urine 02/26/2025 10:2 9 AM CDT 02/26/2025 2:11 PM CDT Haily Siddiqi NP LAB URINE ORDERABLES [facility] Result [facility] [id number] [facility] Department [place] [address] * (ABNORMAL) Lipid panel (02/26/2025 9:39 AM CDT) Cholesterol 100 30 - 199 mg/dL Comment: Interpretive Data [...] Data was last revised on 2018. Triglycerides 168(H) <=149 mg/dL JOB Comment: Interpretive Data Ages [...] Data was last revised on 2018. HDL 17(L) >=40 mg/dL JOB Comment: Interpretive Data Ages [...] was last revised on 2018. LDL, calculated 54 <=129 mg/dL JOB Comment: Interpretive Data Ages [...] was last revised on 2024. Non-HDL Cholesterol 83 mg/dL JOB Comment: Interpretive Data Ages < [...] was last revised on 2018. Chol/HDL ratio 6 JOB Blood 02/26/2025 9:39 AM CDT 02/26/2025 11:21 AM CDT us Haily Siddiqi IRON MELTER LAB BLOOD ORDERABLES [facility] Result [facility] [id number] [facility] Department [place] [address] * (ABNORMAL) POCT hemoglobin A1c (02/26/2025 8:47 AM CDT) Hemoglobin A1C, POC 6.2(A) 4.0 - 5.6 % Capillary blood 02/26/2025 8 :47 AM CDT us Haily Siddiqi NP POINT OF CARE TEST ORDERA BLES Final Result * POCT glucose (02/26/2025 8:47 AM CDT) Glucose Blood, POC 233 Normal Fasting 70 - 100, Random <200 mg/dL Blood 02/26/2025 8:47 AM CDT us Haily Siddiqi NP POINT OF CARE TEST ORDERA BLES Final Result * eGFR (02/11/2025 10:20 AM CDT) eGFR >90 >=60 mL/min/1. 73 [...] interpretive data was last reviewed 2021. Blood 02/11/2025 10:2 0 AM CDT 02/11/2025 10:26 AM CDT us Franklin Ledezma MD PhD LAB BLOOD ORDERABLES Fin al Result [facility] Department [place] [address] * (ABNORMAL) Differential, auto (02/11/2025 10:20 AM CDT) Neutrophil abs 5.39 1.50 - 6.50 K/cumm Comment:Testing performed by : [facility], [address] [place] [address] Lymphocyte abs 0.53(L) 0.80 - 3.30 K/cumm JOB [facility] Comment:Testing performed by : [facility], [address] [place] [address] Monocyte abs 0.53 0.20 - 0.80 K/cumm JOB [facility] Comment:Testing performed by : [facility], [address] [place] [address] Eosinophil abs 0.08 0.00 - 0.50 K/cumm JOB [facility] Comment:Testing performed by : [facility], [address] [place] [address] Basophil abs 0.04 0.00 - 0.10 K/cumm [facility] Comment:Testing performed by : [facility], [address] [place] [phone] Neutrophil pct 82.0 % [facility] Comment: Interpretive Data Percent cell count reference ranges are not reported, since discordance with absolute values may lead to misinterpretation of CBC data. Current Interpretive Data was last revised on 2017. Testing performed by: [facility], [address] [place] [phone] Lymphocyte pct 8.1 % [facility] Comment: Interpretive Data Percent cell count reference ranges are not reported, since discordance with absolute values may lead to misinterpretation of CBC data. Current Interpretive Data was last revised on 2017. Testing performed by: [facility], [address] [place] [phone] Monocyte pct 8.1 % [facility] Comment: Interpretive Data Percent cell count reference ranges are not reported, since discordance with absolute values may lead to misinterpretation of CBC data. Current Interpretive Data was last revised on 2017. Testing performed by: [facility], [address] [place] [address] Eosinophil pct 1.1 % [facility] Comment: Interpretive Data Percent cell count reference ranges are not reported, since discordance with absolute values may lead to misinterpretation of CBC data. Current Interpretive Data was last revised on 2017. Testing performed by: [facility], [address] [place] [phone] Basophil pct 0.7 % [facility] Comment: Interpretive Data Percent cell count reference ranges are not reported, since discordance with absolute values may lead to misinterpretation of CBC data. Current Interpretive Data was last revised on 2017. Testing performed by: [facility], [address] [place] [address] Blood 02/11/2025 10:2 0 AM CDT 02/11/2025 10:24 AM CDT us Franklin Ledezma MD PhD LAB BLOOD ORDERABLES Fin al Result [facility] Department [place] [address] * (ABNORMAL) CBC with auto differential (02/11/2025 10:20 AM CDT) WBC 6.57 3.80 - 9.90 K/cumm Comment:Testing performed by : [facility], [address] [place] [address] Hgb 8.2(L) 13.0 - 17.5 g/dL CERNER [facility] Comment:Testing performed by : [facility], [address] [place] [address] Hct 24.9(L) 38.9 - 50.3 % [facility] Comment:Testing performed by : [facility], [address] [place] [address] Plt 204 150 - 400 K/cumm [facility] Comment:Testing performed by : [facility], [address] [place] [address] MPV 7.4 6.8 - 10.4 fL [facility] Comment:Testing performed by : [facility], [address] [place] [address] RBC 2.88(L) 4.30 - 5.80 M/cumm [facility] Comment:Testing performed by : [facility], [address] [place] [address] MCV 86.3 81.3 - 96.4 fL [facility] Comment:Testing performed by : [facility], [address] [place] [address] MCH 28.4 27.1 - 33.3 pg [facility] Comment:Testing performed by : [facility], [address] [place] [address] MCHC 32.9 32.3 - 35.7 g/dL [facility] Comment:Testing performed by : [facility], [address] [place] [address] RDW CV 20.9(H) 11.1 - 14.9 % [facility] Comment:Testing performed by : [facility], [address] [place] [address] NRBC abs 0.00 0.00 - 0.01 K/cumm [facility] Comment:Testing performed by : [facility], [facility] [place] [address] Blood 02/11/2025 10:2 0 AM CDT 02/11/2025 10:24 AM CDT us Franklin Ledezma MD PhD LAB BLOOD ORDERABLES Fin al Result [facility] Department [place] [address] * (ABNORMAL) Comprehensive metabolic panel (02/11/2025 10:20 AM CDT) Sodium 142 135 - 145 mmol/L Potassium, pl 3.4 3.3 - 4.9 mmol/L [facility] Chloride 102 97 - 110 mmol/L [facility] CO2 27 22 - 32 mmol/L [facility] Anion gap 13 2 - 15 mmol/L [facility] BUN 10 6 - 25 mg/dL [facility] Creatinine 0.69(L) 0.80 - 1.30 mg/dL [facility] Glucose 233(H) 70 - 199 mg/dL [facility] [...] 10.3 mg/dL [facility] Bilirubin, total 0.2 0.1 - 1.2 mg/dL [facility] Protein, pl 5.9(L) 6.5 - 8.5 g/dL [facility] Albumin 3.3(L) 3.5 - 5.0 g/dL [facility] Alk phos 220(H) 40 - 130 Units/L [facility] ALT 27 7 - 55 Units/L [facility] AST 34 10 - 50 Units/L [facility] Blood 02/11/2025 10:2 0 AM CDT 02/11/2025 10:26 AM CDT us Franklin Ledezma MD PhD LAB BLOOD ORDERABLES Fin al Result [facility] Department [place] [address] * eGFR (01/28/2025 10:45 AM CDT) eGFR >90 >=60 mL/min/1. 73 [...] interpretive data was last reviewed 2021. Blood 01/28/2025 10:4 5 AM CDT 01/28/2025 11:00 AM CDT us Franklin Ledezma MD PhD LAB BLOOD ORDERABLES Fin al Result [facility] Department [place] [address] * (ABNORMAL) Differential, auto (01/28/2025 10:45 AM CDT) Neutrophil abs 4.70 1.50 - 6.50 K/cumm Comment:Testing performed by : [facility], [address] [place] [address] Lymphocyte abs 0.64(L) 0.80 - 3.30 K/cumm CERNER BJ Comment:Testing performed by : [facility], [address] [place] [address] Monocyte abs 0.80 0.20 - 0.80 K/cumm CERNER BJ Comment:Testing performed by : [facility], [address] [place] [address] Eosinophil abs 0.04 0.00 - 0.50 K/cumm CERNER BJ Comment:Testing performed by : [facility], [address] [place] [phone] Basophil abs 0.05 0.00 - 0.10 K/cumm CERNER BJ Comment:Testing performed by : [facility], [address] [place] [phone] Neutrophil pct 75.3 % CERNER BJ Comment: Interpretive Data Percent cell count reference ranges are not reported, since discordance with absolute values may lead to misinterpretation of CBC data. Current Interpretive Data was last revised on 2017. Testing performed by: [facility], [address] [place] [phone] Lymphocyte pct 10.3 % CERNER BJ Comment: Interpretive Data Percent cell count reference ranges are not reported, since discordance with absolute values may lead to misinterpretation of CBC data. Current Interpretive Data was last revised on 2017. Testing performed by: [facility], [address] [place] [phone] Monocyte pct 12.9 % CERNER BJ Comment: Interpretive Data Percent cell count reference ranges are not reported, since discordance with absolute values may lead to misinterpretation of CBC data. Current Interpretive Data was last revised on 2017. Testing performed by: [facility], [address] [place] [phone] Eosinophil pct 0.6 % JOB LOJA Comment: Interpretive Data Percent cell count reference ranges are not reported, since discordance with absolute values may lead to misinterpretation of CBC data. Current Interpretive Data was last revised on 2017. Testing performed by: [facility], [address] [place] [phone] Basophil pct 0.9 % JOB MCCOLLUM Comment: Interpretive Data Percent cell count reference ranges are not reported, since discordance with absolute values may lead to misinterpretation of CBC data. Current Interpretive Data was last revised on 2017. Testing performed by: [facility], [address] [place] [phone] Blood 01/28/2025 10:4 5 AM CDT 01/28/2025 10:54 AM CDT us Franklin Ledezma MD PhD LAB BLOOD ORDERABLES Fin al Result JOB MCCOLLUM [facility] Department [place] [address] * (ABNORMAL) CBC with auto differential (01/28/2025 10:45 AM CDT) WBC 6.23 3.80 - 9.90 K/cumm Comment:Testing performed by : [facility], [address] [place] [phone] Hgb 8.4(L) 13.0 - 17.5 g/dL JOB LOJA Comment:Testing performed by : [facility], [address] [place] [phone] Hct 25.5(L) 38.9 - 50.3 % JOB MCCOLLUM Comment:Testing performed by : [facility], [address] [place] [address] Plt 260 150 - 400 K/cumm CERNER BJ Comment:Testing performed by : [facility], [address] [place] [address] MPV 7.1 6.8 - 10.4 fL CERNER BJ Comment:Testing performed by : [facility], [address] [place] [address] RBC 3.04(L) 4.30 - 5.80 M/cumm CERNER BJ Comment:Testing performed by : [facility], [address] [place] [address] MCV 84.0 81.3 - 96.4 fL CERUBALDO BJ Comment:Testing performed by : [facility], [address] [place], [place] [phone] MCH 27.5 27.1 - 33.3 pg CERNER [facility] Comment:Testing performed by : [facility], [address] [place] [address] MCHC 32.7 32.3 - 35.7 g/dL CERNER [facility] Comment:Testing performed by : [facility], [address] [place] [address] RDW CV 19.2(H) 11.1 - 14.9 % CERNER [facility] Comment:Testing performed by : [facility], [address] [place] [address] NRBC abs 0.00 0.00 - 0.01 K/cumm CERNER [facility] Comment:Testing performed by : [facility], [address] [place] [address] Blood 01/28/2025 10:4 5 AM CDT 01/28/2025 10:54 AM CDT us Franklin Ledezma MD PhD LAB BLOOD ORDERABLES Fin al Result [facility] Department [place] [address] * (ABNORMAL) Cancer antigen 19-9 (01/28/2025 10:45 AM CDT) Pathologist [facility] CA 19-9 ag 51.1(H) <=35.0 units/mL Comment: Interpretive Data The Lexi CA 19-9 assay procedure was used. Results from different manufacturers or methods may not be comparable. Serial testing should be performed using the same method. Blood 01/28/2025 10:4 5 AM CDT 01/28/2025 11:28 AM CDT Franklin Ledezma MD PhD LAB BLOOD ORDERABLES Fin al Result Performing Organization Address [facility] Co de Phone Number [facility] Department [place] [address] * Type and screen (01/28/2025 10:45 AM CDT) [facility] Shadi, indirect Negative ABO Rh B Positive [facility] Blood 01/28/2025 10:4 5 AM CDT 01/28/2025 11:04 AM CDT Narrative [facility] - 01/28/2025 11:58 AM CDT Has the patient had Daratumumab or Isatuximab in the past 6 months?->Unknown Franklin Ledezma MD PhD LAB BLOOD BANK TEST ORDE RABLES Final Result Performing Organization Address [facility] de Phone Number [facility] [place] [address] * (ABNORMAL) Comprehensive metabolic panel (01/28/2025 10:45 AM CDT) [facility] Sodium 139 135 - 145 mmol/L Potassium, pl 3.8 3.3 - 4.9 mmol/L [facility] Chloride 101 97 - 110 mmol/L [facility] CO2 27 22 - 32 mmol/L [facility] Anion gap 11 2 - 15 mmol/L [facility] BUN 7 6 - 25 mg/dL [facility] Creatinine 0.85 0.80 - 1.30 mg/dL [facility] Glucose 232(H) 70 - 199 mg/dL [facility] [...] interpretive data was last revised 2022. Calcium 8.8 8.5 - 10.3 mg/dL [facility] Bilirubin, total 0.2 0.1 - 1.2 mg/dL [facility] Protein, pl 5.9(L) 6.5 - 8.5 g/dL [facility] Albumin 3.1(L) 3.5 - 5.0 g/dL [facility] Alk phos 252(H) 40 - 130 Units/L [facility] ALT 33 7 - 55 Units/L [facility] AST 46 10 - 50 Units/L [facility] Blood 01/28/2025 10:4 5 AM CDT 01/28/2025 11:00 AM CDT Franklin Ledezma MD PhD LAB BLOOD ORDERABLES Fin al Result Performing Organization Address [facility]/ZIP Co de Phone Number [facility] [employer] [place] [employer] [place] [address] * Transfuse RBC (01/15/2025 5:41 PM CDT) Blood Franklin Ledezma MD PhD BLOOD TRANSFUSION ORDERA BLES Final Result Performing Organization Address [facility]/ZIP Co de Phone Number [facility] [employer] [place] [address] * Prepare RBC: 1 Units (01/15/2025 3:05 PM CDT) Product code [id number] Unit Number [id number] [facility] Product Blood Type BPOS [facility] Dispense Status PRESUMED TRANSFUSED [facility] Blood 01/15/2025 3:05 PM CDT 01/15/2025 3:04 PM CDT Narrative [facility] - 01/16/2025 4:00 AM CDT Are special requirements needed? (All products are leukoreduced and CMV- safe)- >No Date required:-[id number] LRRBC # of Eoiss-3-Hajdd Reasons:-BMT/ONC, Hgb <8 g/dL} Franklin Ledezma MD PhD BLOOD BANK PRODUCT ORDER RADHA Final Result Performing Organization Address [facility]/ZIP Co de Phone Number [facility] [employer] [place] [address] * Type and screen (01/14/2025 1:48 PM CDT) Pathologist [facility] ABO Rh B Positive Hsadi, indirect Negative [facility] Blood 01/14/2025 1:48 PM CDT 01/14/2025 1:58 PM CDT Narrative [facility] - 01/14/2025 2:59 PM CDT Has the patient had Daratumumab or Isatuximab in the past 6 months?->Unknown us Franklin Ledezma MD PhD LAB BLOOD BANK TEST ORDE RABVICKI Final Result [facility] [employer] [place] [address] * (ABNORMAL) Differential, auto (01/14/2025 10:44 AM CDT) Neutrophil abs 3.95 1.50 - 6.50 K/cumm Comment:Testing performed by : [facility], [address] [place] [phone] Lymphocyte abs 0.57(L) 0.80 - 3.30 K/cumm CERNER [facility] Comment:Testing performed by : [facility], [address] [place], [place] [id number] Monocyte abs 0.51 0.20 - 0.80 K/cumm CERNER [facility] Comment:Testing performed by : [facility], [address] [place] [address] Eosinophil abs 0.03 0.00 - 0.50 K/cumm CERNER [facility] Comment:Testing performed by : [facility], [address] [place] [address] Basophil abs 0.04 0.00 - 0.10 K/cumm CERNER [facility] Comment:Testing performed by : [facility], [address] [place], [place] [id number] Neutrophil pct 77.6 % CERNER [facility] Comment: Interpretive Data Percent cell count reference ranges are not reported, since discordance with absolute values may lead to misinterpretation of CBC data. Current Interpretive Data was last revised on 2017. Testing performed by: [facility], [address] [place] [address] Lymphocyte pct 11.2 % CERNER BJ Comment: Interpretive Data Percent cell count reference ranges are not reported, since discordance with absolute values may lead to misinterpretation of CBC data. Current Interpretive Data was last revised on 2017. Testing performed by: [facility], [address] [place] [phone] Monocyte pct 10.0 % CERNER [facility] Comment: Interpretive Data Percent cell count reference ranges are not reported, since discordance with absolute values may lead to misinterpretation of CBC data. Current Interpretive Data was last revised on 2017. Testing performed by: [facility], [address] [place] [phone] Eosinophil pct 0.5 % CERNER [facility] Comment: Interpretive Data Percent cell count reference ranges are not reported, since discordance with absolute values may lead to misinterpretation of CBC data. Current Interpretive Data was last revised on 2017. Testing performed by: [facility], [address] [place] [phone] Basophil pct 0.8 % JOB [facility] Comment: Interpretive Data Percent cell count reference ranges are not reported, since discordance with absolute values may lead to misinterpretation of CBC data. Current Interpretive Data was last revised on 2017. Testing performed by: [facility], [address] [place] [phone] Blood 01/14/2025 10:4 4 AM CDT 01/14/2025 10:54 AM CDT us Franklin Ledezma MD PhD LAB BLOOD ORDERABLES Fin al Result JOB MCCOLLUM [facility] Department [place] [address] * (ABNORMAL) CBC with auto differential (01/14/2025 10:44 AM CDT) WBC 5.10 3.80 - 9.90 K/cumm Comment:Testing performed by : [facility], [address] [place] [address] Hgb 7.9(L) 13.0 - 17.5 g/dL JOB MCCOLLUM Comment:Testing performed by : [facility], [address] [place] [address] Hct 23.9(L) 38.9 - 50.3 % JOB MCCOLLUM Comment:Testing performed by : [facility], [address] [place] [phone] Plt 361 150 - 400 K/cumm CERUBALDO MCCOLLUM Comment:Testing performed by : [facility], [address] [place] [address] MPV 7.0 6.8 - 10.4 fL JOB MCCOLLUM Comment:Testing performed by : [facility], [address] [place] [address] RBC 2.84(L) 4.30 - 5.80 M/cumm JOB MCCOLLUM Comment:Testing performed by : [facility], [address] [place], [place] [phone] MCV 84.0 81.3 - 96.4 fL JOB MCCOLLUM Comment:Testing performed by : [facility], [address] [place], [place] [phone] MCH 27.7 27.1 - 33.3 pg JOB MCCOLLUM Comment:Testing performed by : [facility], [address] [place], [place] [phone] MCHC 33.0 32.3 - 35.7 g/dL JOB MCCOLLUM Comment:Testing performed by : [facility], [address] [place], [place] [phone] RDW CV 18.0(H) 11.1 - 14.9 % JOB MCCOLLUM Comment:Testing performed by : [facility], [address] [place], [place] [phone] NRBC abs 0.00 0.00 - 0.01 K/cumm JOB [facility] Comment:Testing performed by : [facility], [address] [place], [place] [phone] Blood 01/14/2025 10:4 4 AM CDT 01/14/2025 10:54 AM CDT us Franklin Ledezma MD PhD LAB BLOOD ORDERABLES Fin al Result [facility] Department [place] [address] * eGFR (01/14/2025 10:04 AM CDT) eGFR >90 >=60 mL/min/1. 73 [...] interpretive data was last reviewed 2021. Blood 01/14/2025 10:0 4 AM CDT 01/14/2025 10:48 AM CDT us Franklin Ledezma MD PhD LAB BLOOD ORDERABLES Fin al Result [facility] Department [place] [address] * (ABNORMAL) Comprehensive metabolic panel (01/14/2025 10:04 AM CDT) Sodium 141 135 - 145 mmol/L Potassium, pl 3.5 3.3 - 4.9 mmol/L [facility] Chloride 101 97 - 110 mmol/L [facility] CO2 30 22 - 32 mmol/L [facility] Anion gap 10 2 - 15 mmol/L [facility] BUN 6 6 - 25 mg/dL [facility] Creatinine 0.68(L) 0.80 - 1.30 mg/dL [facility] Glucose 145 70 - 199 mg/dL [facility] [...] interpretive data was last revised 2022. Calcium 8.6 8.5 - 10.3 mg/dL [facility] Bilirubin, total 0.2 0.1 - 1.2 mg/dL [facility] Protein, pl 5.6(L) 6.5 - 8.5 g/dL [facility] Albumin 2.6(L) 3.5 - 5.0 g/dL [facility] Alk phos 271(H) 40 - 130 Units/L [facility] ALT 25 7 - 55 Units/L [facility] AST 39 10 - 50 Units/L [facility] Blood 01/14/2025 10:0 4 AM CDT 01/14/2025 10:48 AM CDT us Franklin Ledezma MD PhD LAB BLOOD ORDERABLES Fin al Result [facility] Department [place] [address] * (ABNORMAL) POCT glucose (01/08/2025 11:29 AM CDT) Pathologist [facility] Glucose, POC 264(H) 70 - 199 mg/dL Blood 01/08/2025 11:2 9 AM CDT 01/08/2025 11:29 AM CDT us Naisr Tyson MD LAB POCT ORDERABLES - DEVIC E Final Result Performing Organization Address City/[facility]/ZIP Co de Phone Number [facility] Department [place] [address] * eGFR (01/08/2025 10:44 AM CDT) [facility] eGFR >90 >=60 mL/min/1. 73 m2 Comment: [...] interpretive data was last reviewed 2021. Blood 01/08/2025 10:4 4 AM CDT 01/08/2025 11:02 AM CDT Nasir Tyson MD LAB BLOOD ORDERABLES Final Result Performing Organization Address City/[facility] Co de Phone Number [facility] [place] [address] * (ABNORMAL) Protime-INR (01/08/2025 10:44 AM CDT) PT 18.0(H) 9.7 - 13.0 sec INR 1.65(H) 0.90 - 1.20 [facility] Comment: Interpretive data Oral anticoagulant therapeutic ranges: Venous thromboembolism prophylaxis or treatment: 2.0-3.0 CARDIOLOGY Standard range: 2.0-3.0 High-intensity range: 2.5-3.5 Refer to indication-specific guidelines for appropriate target ranges for prosthetic heart valve replacement. Current interpretive data was last revised on 2019. Blood 01/08/2025 10:4 4 AM CDT 01/08/2025 10:57 AM CDT Narrative [facility] - 01/08/2025 11:21 AM CDT Baseline prior to rivaroxaban initiation Nasir Tyson MD LAB BLOOD ORDERABLES Final Result Performing Organization Address City/[facility] Co de Phone Number [facility] [place] [address] * (ABNORMAL) CBC without differential (01/08/2025 10:44 AM CDT) WBC 3.31(L) 3.80 - 9.90 K/cumm Hgb 7.1(L) 13.0 - 17.5 g/dL [facility] Hct 21.9(L) 38.9 - 50.3 % [facility] Plt 272 150 - 400 K/cumm [facility] MPV 9.5 9.1 - 12.3 fL [facility] RBC 2.55(L) 4.30 - 5.80 M/cumm [facility] MCV 85.9 81.3 - 96.4 fL [facility] MCH 27.8 27.1 - 33.3 pg [facility] MCHC 32.4 32.3 - 35.7 g/dL [facility] RDW CV 17.0(H) 11.1 - 14.9 % [facility] RDW SD 52.3(H) 35.7 - 48.1 fL [facility] NRBC abs 0.00 0.00 - 0.01 K/cumm [facility] Blood 01/08/2025 10:4 4 AM CDT 01/08/2025 10:57 AM CDT Narrative [facility] - 01/08/2025 11:11 AM CDT Baseline prior to rivaroxaban initiation us Nasir Tyson MD LAB BLOOD ORDERABLES Final Result Performing Organization Address [facility] de Phone Number [facility] Department [place] [address] * (ABNORMAL) Creatinine (01/08/2025 10:44 AM CDT) Creatinine 0.73(L) 0.80 - 1.30 mg/dL Blood 01/08/2025 10:4 4 AM CDT 01/08/2025 10:57 AM CDT Narrative [facility] - 01/08/2025 11:27 AM CDT Baseline prior to rivaroxaban initiation Nasir Tyson MD LAB BLOOD ORDERABLES Final Result [facility] [place] [address] * (ABNORMAL) Hepatic function panel (01/08/2025 10:44 AM CDT) [facility] Bilirubin, total 0.3 0.1 - 1.2 mg/dL Bilirubin, direct 0.2 0.1 - 0.3 mg/dL [facility] Protein, pl 5.0(L) 6.5 - 8.5 g/dL [facility] Albumin 2.1(L) 3.5 - 5.0 g/dL [facility] Alk phos 309(H) 40 - 130 Units/L [facility] ALT 25 7 - 55 Units/L [facility] AST 38 10 - 50 Units/L [facility] Blood 01/08/2025 10:4 4 AM CDT 01/08/2025 10:57 AM CDT Narrative [facility] - 01/08/2025 11:27 AM CDT Baseline prior to rivaroxaban initiation us Nasir Tyson MD LAB BLOOD ORDERABLES Final Result Performing Organization Address [facility] [place] [address] * (ABNORMAL) POCT glucose (01/08/2025 7:40 AM CDT) [facility] Glucose, POC 218(H) 70 - 199 mg/dL Blood 01/08/2025 7:40 AM CDT 01/08/2025 7:40 AM CDT Nasir Tyson MD LAB POCT ORDERABLES - DEVIC E Final Result Performing Organization Address [facility] Co de Phone Number [facility] [place] [address] * Vancomycin level trough (01/08/2025 4:28 AM CDT) [facility] Vancomycin trough 11.4 10.0 - 20.0 mcg/mL Blood 01/08/2025 4:28 AM CDT 01/08/2025 4:40 AM CDT Franklin Ledezma MD PhD LAB BLOOD ORDERABLES Fin al Result Performing Organization Address City/[facility] Co de Phone Number [facility] [employer] [place] [address] * eGFR (01/08/2025 12:42 AM CDT) [facility] eGFR >90 >=60 mL/min/1. 73 m2 Comment: [...] interpretive data was last reviewed 2021. Blood 01/08/2025 12:4 2 AM CDT 01/08/2025 1:07 AM CDT Franklin Ledezma MD PhD LAB BLOOD ORDERABLES Fin al Result Performing Organization Address City/[facility]/ZIP [facility] [place] [address] * (ABNORMAL) Differential, auto (01/08/2025 12:42 AM CDT) Neutrophil abs 1.96 1.50 - 6.50 K/cumm Imm gran abs 0.02 0.00 - 0.10 K/cumm [facility] Lymphocyte abs 0.62(L) 0.80 - 3.30 K/cumm [facility] Monocyte abs 0.61 0.20 - 0.80 K/cumm [facility] Eosinophil abs 0.10 0.00 - 0.50 K/cumm [facility] Basophil abs 0.02 0.00 - 0.10 K/cumm [facility] Neutrophil pct 58.9 % [facility] Comment: Interpretive Data Percent cell count reference ranges are not reported, since discordance with absolute values may lead to misinterpretation of CBC data. Current Interpretive Data was last revised on 2017. Imm gran pct 0.6 % [facility] Comment: Interpretive Data Percent cell count reference ranges are not reported, since discordance with absolute values may lead to misinterpretation of CBC data. Current Interpretive Data was last revised on 2017. Lymphocyte pct 18.6 % [facility] Comment: Interpretive Data Percent cell count reference ranges are not reported, since discordance with absolute values may lead to misinterpretation of CBC data. Current Interpretive Data was last revised on 2017. Monocyte pct 18.3 % [facility] Comment: Interpretive Data Percent cell count reference ranges are not reported, since discordance with absolute values may lead to misinterpretation of CBC data. Current Interpretive Data was last revised on 2017. Eosinophil pct 3.0 % [facility] Comment: Interpretive Data Percent cell count reference ranges are not reported, since discordance with absolute values may lead to misinterpretation of CBC data. Current Interpretive Data was last revised on 2017. Basophil pct 0.6 % [facility] Comment: Interpretive Data Percent cell count reference ranges are not reported, since discordance with absolute values may lead to misinterpretation of CBC data. Current Interpretive Data was last revised on 2017. Blood 01/08/2025 12:4 2 AM CDT 01/08/2025 1:07 AM CDT us Franklin Ledezma MD PhD LAB BLOOD ORDERABLES Fin al Result Performing Organization Address [facility] de Phone Number [facility] Department [place] [address] * (ABNORMAL) CBC with auto differential (01/08/2025 12:42 AM CDT) [facility] WBC 3.33(L) 3.80 - 9.90 K/cumm Hgb 7.1(L) 13.0 - 17.5 g/dL [facility] Hct 21.8(L) 38.9 - 50.3 % [facility] Plt 266 150 - 400 K/cumm [facility] MPV 9.9 9.1 - 12.3 fL [facility] RBC 2.53(L) 4.30 - 5.80 M/cumm [facility] MCV 86.2 81.3 - 96.4 fL [facility] MCH 28.1 27.1 - 33.3 pg [facility] MCHC 32.6 32.3 - 35.7 g/dL [facility] RDW CV 16.8(H) 11.1 - 14.9 % [facility] RDW SD 52.5(H) 35.7 - 48.1 fL [facility] NRBC abs 0.00 0.00 - 0.01 K/cumm [facility] Blood 01/08/2025 12:4 2 AM CDT 01/08/2025 1:07 AM CDT Franklin Ledezma MD PhD LAB BLOOD ORDERABLES Fin al Result Performing Organization Address [facility] Co de Phone Number [facility] Department [place] [address] * Phosphorus (01/08/2025 12:42 AM CDT) [facility] Phosphorus, pl 3.0 2.3 - 4.5 mg/dL Blood 01/08/2025 12:4 2 AM CDT 01/08/2025 1:07 AM CDT Franklin Ledezma MD PhD LAB BLOOD ORDERABLES Fin al Result [facility] Department [place] [address] * (ABNORMAL) Comprehensive metabolic panel (01/08/2025 12:42 AM CDT) Sodium 137 135 - 145 mmol/L Potassium, pl 3.9 3.3 - 4.9 mmol/L [facility] Chloride 102 97 - 110 mmol/L [facility] CO2 26 22 - 32 mmol/L [facility] Anion gap 9 2 - 15 mmol/L [facility] BUN 11 6 - 25 mg/dL [facility] Creatinine 0.77(L) 0.80 - 1.30 mg/dL [facility] Glucose 156 70 - 199 mg/dL [facility] [...] interpretive data was last revised 2022. Calcium 7.8(L) 8.5 - 10.3 mg/dL [facility] Bilirubin, total 0.3 0.1 - 1.2 mg/dL [facility] Protein, pl 5.1(L) 6.5 - 8.5 g/dL [facility] Albumin 2.3(L) 3.5 - 5.0 g/dL [facility] Alk phos 322(H) 40 - 130 Units/L [facility] ALT 27 7 - 55 Units/L [facility] AST 39 10 - 50 Units/L [facility] Blood 01/08/2025 12:4 2 AM CDT 01/08/2025 1:07 AM CDT Franklin Ledezma MD PhD LAB BLOOD ORDERABLES Fin al Result Performing Organization Address City/[facility]/ZIP Co de Phone Number [facility] [employer] [place] [address] * POCT glucose (01/07/2025 9:21 PM CDT) Glucose, POC 151 70 - 199 mg/dL Blood 01/07/2025 9:21 PM CDT 01/07/2025 9:21 PM CDT Nasir Tyson MD LAB POCT ORDERABLES - DEVIC E Final Result Performing Organization Address [facility] Co de Phone Number [facility] [employer] [place] [address] * POCT glucose (01/07/2025 7:40 PM CDT) Glucose, POC 167 70 - 199 mg/dL Blood 01/07/2025 7:40 PM CDT 01/07/2025 7:40 PM CDT Franklin Ledezma MD PhD LAB POCT ORDERABLES - DE VICE Final Result Performing Organization Address [facility]/ZIP Co de Phone Number [facility] [place] [employer] [place] [address] * POCT glucose (01/07/2025 4:51 PM CDT) Glucose, POC 154 70 - 199 mg/dL Blood 01/07/2025 4:51 PM CDT 01/07/2025 4:51 PM CDT Franklin Ledezma MD PhD LAB POCT ORDERABLES - DE VICE Final Result Performing Organization Address City/[facility]/ZIP Co de Phone Number [facility] [employer] [place] [address] * (ABNORMAL) POCT glucose (01/07/2025 11:44 AM CDT) Glucose, POC 233(H) 70 - 199 mg/dL Blood 01/07/2025 11:4 4 AM CDT 01/07/2025 11:44 AM CDT Franklin Ledezma MD PhD LAB POCT ORDERABLES - DE VICE Final Result Performing Organization Address [facility] Phone Number JOB [facility] [place] [address] * (ABNORMAL) POCT glucose (01/07/2025 9:28 AM CDT) Glucose, POC 247(H) 70 - 199 mg/dL Blood 01/07/2025 9:28 AM CDT 01/07/2025 9:28 AM CDT Franklin Ledezma MD PhD LAB POCT ORDERABLES - DE VICE Final Result Performing Organization Address [facility] Phone Number [facility] [place] [address] * US Vein Duplex Lower Extremity Bilateral Complete (01/07/2025 8:46 AM CDT) Anatomical Region Laterality Modality Vascular Bilateral Ultrasound 01/07/2025 8:11 AM CDT Narrative 01/07/2025 12:42 PM CDT [facility] [employer] [facility] - Department of Vascular Surgery, Vascular Laboratory [address] [place] [id number] Lower Extremity Venous Ultrasound Report Patient Name: OC DURON : 1965 (59y 9m) Study Date: 01/07/2025 8:11:09 AM Gender: M Tech: Location: 2182 Ref Provider: FRANKLIN LEDEZMA Quality: Adequate Order Provider: FRANKLIN LEDEZMA PROCEDURES: Vascular Report: Venous Duplex imaging was performed bilaterally in the lower extremities. The common femoral, femoral, popliteal, posterior tibial, peroneal veins were evaluated for patency, spontaneity and phasicity with Doppler, compression and augmentation maneuvers. Great saphenous vein proximal at the junction was evaluated with compression maneuvers. INDICATIONS: lower extremity swelling. FINDINGS: Performing Beauty Director: Cesia Solitario RVT. Right: Venous Doppler signals in the right lower extremity are within normal limits for spontaneity and phasicity and respond normally to augmentation maneuvers. No evidence of deep vein thrombus by duplex, proximal to the calf. Left: Duplex scan reveals dilated vein with echogenic, intraluminal, non-compressible material consistent with acute deep vein thrombosis in the left lower extremity. Deep veins involved include the peroneal veins (occlusive) and soleal sinus veins. All other evaluated veins are patent. Provider Notification: Results called on the above date to rGace hTomson MD at 8:45. CONCLUSIONS: 1. There is no evidence of acute deep vein thrombosis on the right. Noninvasive venous studies cannot rule out isolated calf vein obstruction. 2. There is acute deep vein thrombosis involving vein(s) as noted above in the left lower extremity calf veins. HISTORY: SOB, Cough, HTN, DM, Anemia, Valerio's esophagus, Sepsis, Malignant neoplasm pancreas , liver, & intrahepatic bile duct. No infections documented. COVID 19 not detected 01-06-2025. PREVIOUS STUDIES: Previous study performed on 12-24-2024: negative for DVT. DISCLAIMER: The study images and the final report will be retained in the patient chart by the Vascular Laboratory for the legally required time period. This chart constitutes the legal record of any testing performed. ATTESTATION: I have reviewed and interpreted the pertinent images and measurements of this study. I attest to the conclusions in the final report that is provided above. Electronically Signed By: Spike Kiran MD [facility] [phone] 01/07/2025 11:35:00 AM CDT Procedure Note Spike Kiran MD - 01/07/2025 [facility] - Department of Vascular Surgery,Vascular Laboratory [address] [place] [address] Lower Extremity Venous Ultrasound Report Patient Name: OC DURON : 1965 (59y 9m) Study Date: 01/07/2025 8:11:09 AM Gender: M Tech: Location: 2182 Ref Provider: FRANKLIN LEDEZMA Quality: Adequate Order Provider: FRANKLIN LEDEZMA PROCEDURES: Vascular Report: Venous Duplex imaging was performed bilaterally in the lower extremities.The common femoral, femoral, popliteal, posterior tibial, peroneal veins wereevaluated for patency, spontaneity and phasicity with Doppler, compression and augmentationmaneuvers. Great saphenous vein proximal at the junction was evaluated with compressionmaneuvers. INDICATIONS: lower extremity swelling. FINDINGS: Performing Beauty Director: Cesia Solitario RVT. Right: Venous Doppler signals in the right lower extremity are within normallimits for spontaneity and phasicity and respond normally to augmentation maneuvers.No evidence of deep vein thrombus by duplex, proximal to the calf. Left: Duplex scan reveals dilated vein with echogenic, intraluminal,non-compressible material consistent with acute deep vein thrombosis in the left lower extremity.Deep veins involved include the peroneal veins (occlusive) and soleal sinus veins.All other evaluated veins are patent. Provider Notification: Results called on the above date to Grace Thomson MD at 8:45. CONCLUSIONS: 1. There is no evidence of acute deep vein thrombosis on the right.Noninvasive venous studies cannot rule out isolated calf vein obstruction. 2. There is acute deep vein thrombosis involving vein(s) as noted above inthe left lower extremity calf veins. HISTORY: SOB, Cough, HTN, DM, Anemia, Valerio's esophagus, Sepsis, Malignantneoplasm pancreas , liver, & intrahepatic bile duct. No infections documented. COVID 19 not detected 01-06-2025. PREVIOUS STUDIES: Previous study performed on 12-24-2024: negative for DVT. DISCLAIMER: The study images and the final report will be retained in the patientchart by the Vascular Laboratory for the legally required time period. This chartconstitutes the legal record of any testing performed. ATTESTATION: I have reviewed and interpreted the pertinent images and measurements ofthis study. I attest to the conclusions in the final report that is provided above. Electronically Signed By: Spike Kiran MD [facility] [phone] 01/07/2025 11:35:00 AM CDT us Franklin Ledezma MD PhD IMG US PROCEDURES Final Result * (ABNORMAL) POCT glucose (01/07/2025 7:50 AM CDT) Pathologist [facility] Glucose, POC 215(H) 70 - 199 mg/dL Blood 01/07/2025 7:50 AM CDT 01/07/2025 7:50 AM CDT us Franklin Ledezma MD PhD LAB POCT ORDERABLES - DE VICE Final Result Performing Organization Address [facility] Co de Phone Number [facility] Department [place] [address] * eGFR (01/07/2025 5:30 AM CDT) Pathologist [facility] eGFR [...] interpretive data was last reviewed 2021. Blood 01/07/2025 5:30 AM CDT 01/07/2025 5:53 AM CDT us Franklin Ledezma MD PhD LAB BLOOD ORDERABLES Fin al Result Performing Organization Address City/[facility]/ZIP Co de Phone Number [facility] Department [place] [address] * (ABNORMAL) Differential, auto (01/07/2025 5:30 AM CDT) Pathologist [facility] Neutrophil abs 1.53 1.50 - 6.50 K/cumm Imm gran abs 0.03 0.00 - 0.10 K/cumm [facility] Lymphocyte abs 0.47(L) 0.80 - 3.30 K/cumm [facility] Monocyte abs 0.59 0.20 - 0.80 K/cumm [facility] Eosinophil abs 0.09 0.00 - 0.50 K/cumm [facility] Basophil abs 0.01 0.00 - 0.10 K/cumm [facility] Neutrophil pct 56.2 % [facility] Comment: Interpretive Data Percent cell count reference ranges are not reported, since discordance with absolute values may lead to misinterpretation of CBC data. Current Interpretive Data was last revised on 2017. Imm gran pct 1.1 % [facility] Comment: Interpretive Data Percent cell count reference ranges are not reported, since discordance with absolute values may lead to misinterpretation of CBC data. Current Interpretive Data was last revised on 2017. Lymphocyte pct 17.3 % [facility] Comment: Interpretive Data Percent cell count reference ranges are not reported, since discordance with absolute values may lead to misinterpretation of CBC data. Current Interpretive Data was last revised on 2017. Monocyte pct 21.7 % [facility] Comment: Interpretive Data Percent cell count reference ranges are not reported, since discordance with absolute values may lead to misinterpretation of CBC data. Current Interpretive Data was last revised on 2017. Eosinophil pct 3.3 % [facility] Comment: Interpretive Data Percent cell count reference ranges are not reported, since discordance with absolute values may lead to misinterpretation of CBC data. Current Interpretive Data was last revised on 2017. Basophil pct 0.4 % [facility] Comment: Interpretive Data Percent cell count reference ranges are not reported, since discordance with absolute values may lead to misinterpretation of CBC data. Current Interpretive Data was last revised on 2017. Blood 01/07/2025 5:30 AM CDT 01/07/2025 5:54 AM CDT us Franklin Ledezma MD PhD LAB BLOOD ORDERABLES Fin al Result [facility] Department [place] [address] * Uric acid, urine, random (01/07/2025 5:30 AM CDT) Pathologist [facility] Uric acid, ur 43.2 mg/dL Comment: Interpretive Data No reference range established. Current interpretive data was last revised 2018. Urine 01/07/2025 5:30 AM CDT 01/07/2025 5:54 AM CDT Franklin Ledezma MD PhD LAB URINE ORDERABLES Fin al Result [facility] Department [place] [address] * (ABNORMAL) CBC with auto differential (01/07/2025 5:30 AM CDT) Pathologist [facility] WBC 2.72(L) 3.80 - 9.90 K/cumm Hgb 7.5(L) 13.0 - 17.5 g/dL [facility] Hct 23.4(L) 38.9 - 50.3 % [facility] Plt 249 150 - 400 K/cumm [facility] MPV 9.6 9.1 - 12.3 fL [facility] RBC 2.72(L) 4.30 - 5.80 M/cumm [facility] MCV 86.0 81.3 - 96.4 fL [facility] MCH 27.6 27.1 - 33.3 pg [facility] MCHC 32.1(L) 32.3 - 35.7 g/dL [facility] RDW CV 16.4(H) 11.1 - 14.9 % [facility] RDW SD 51.9(H) 35.7 - 48.1 fL [facility] NRBC abs 0.00 0.00 - 0.01 K/cumm [facility] Blood 01/07/2025 5:30 AM CDT 01/07/2025 5:54 AM CDT Franklin Ledezma MD PhD LAB BLOOD ORDERABLES Fin al Result Performing Organization Address City/[facility] Co de Phone Number [facility] [place] [address] * Phosphorus (01/07/2025 5:30 AM CDT) Pathologist [facility] Phosphorus, pl 2.5 2.3 - 4.5 mg/dL Blood 01/07/2025 5:30 AM CDT 01/07/2025 5:53 AM CDT Franklin Ledezma MD PhD LAB BLOOD ORDERABLES Fin al Result Performing Organization Address [facility] de Phone Number [facility] [place] [address] * (ABNORMAL) Hemoglobin A1c (01/07/2025 5:30 AM CDT) [facility] Hgb A1C 7.2(H) 4.0 - 5.6 % Estimated Average Glucose 160 mg/dL [facility] Comment: The ADA recommends reporting an estimated Average Glucose (eAG) with all Hemoglobin A1c results using the equation derived from a study of 507 normal and diabetic adults. Minority populations were underrepresented and children were not included. (Diabetes Care 2020; 43(S1): S66-S76). The eAG is not equivalent to a fasting glucose. Blood 01/07/2025 5:30 AM CDT 01/07/2025 5:58 AM CDT Narrative [facility] - 01/07/2025 7:59 AM CDT Reflex Franklin Ledezma MD PhD LAB BLOOD ORDERABLES Fin al Result Performing Organization Address [facility] Co de Phone Number [facility] [place] [address] * (ABNORMAL) Comprehensive metabolic panel (01/07/2025 5:30 AM CDT) [facility] Sodium 134(L) 135 - 145 mmol/L Potassium, pl 4.3 3.3 - 4.9 mmol/L [facility] Chloride 100 97 - 110 mmol/L [facility] CO2 25 22 - 32 mmol/L [facility] Anion gap 9 2 - 15 mmol/L [facility] BUN 12 6 - 25 mg/dL [facility] Creatinine 0.75(L) 0.80 - 1.30 mg/dL [facility] Glucose 212(H) 70 - 199 mg/dL [facility] [...] interpretive data was last revised 2022. Calcium 7.8(L) 8.5 - 10.3 mg/dL [facility] Bilirubin, total 0.8 0.1 - 1.2 mg/dL [facility] Protein, pl 5.2(L) 6.5 - 8.5 g/dL [facility] Albumin 2.3(L) 3.5 - 5.0 g/dL [facility] Alk phos 313(H) 40 - 130 Units/L [facility] ALT 26 7 - 55 Units/L [facility] AST 37 10 - 50 Units/L [facility] Blood 01/07/2025 5:30 AM CDT 01/07/2025 5:53 AM CDT us Franklin Ledezma MD PhD LAB BLOOD ORDERABLES Fin al Result [facility] Department [place] [address] * Transfuse RBC (01/07/2025 3:21 AM CDT) Blood us Franklin Ledezma MD PhD BLOOD TRANSFUSION ORDERA BLES Final Result Performing Organization Address City/[facility]/ZIP Co de Phone Number [facility] [place] [address] * (ABNORMAL) Urinalysis reflex to microscopic (01/07/2025 12:04 AM CDT) Color, ur Straw Yellow Clarity, ur Clear Clear [facility] Specific gravity, ur 1.017 1.003 - 1.030 [facility] pH, urine 6.0 [facility] Comment: Interpretive Data U rine pH is affected by diet, medications, systemic acid-base disturbances, and renal tubular function. pH may affect urinary stone formation. For example, urine pH below 6.0 may help reduce the tendency for calcium phosphate stones and pH greater than 6.0 may reduce the tendency for uric acid stone formation. Source: [facility] Current Interpretive Data was last revised on 2017 Protein, ur ql 1+(A) Negative [facility] Glucose, ur ql 1+(A) Negative [facility] Ketones, ur Negative Negative [facility] Bilirubin, ur Negative Negative [facility] Blood, ur Negative Negative [facility] Urobilinogen, ur <2.0 <2.0 mg/dL [facility] Nitrite, ur Negative Negative [facility] Leukocyte esterase, ur Negative Negative [facility] UA reflex comment Reflex to microscopic UA will be performed. [facility] Urine 01/07/2025 12:0 4 AM CDT 01/07/2025 12:18 AM CDT Franklin Ledezma MD PhD LAB URINE ORDERABLES Fin al Result Performing Organization Address [facility]/ZIP Co de Phone Number JOB [facility] Department [place] [address] * (ABNORMAL) Urinalysis reflex to microscopic and culture Urine (01/07/2025 12:04 AM CDT) Color, ur Straw Yellow Clarity, ur Clear Clear [facility] Specific gravity, ur 1.017 1.003 - 1.030 [facility] pH, urine 6.0 [facility] Comment: Interpretive Data U rine pH is affected by diet, medications, systemic acid-base disturbances, and renal tubular function. pH may affect urinary stone formation. For example, urine pH below 6.0 may help reduce the tendency for calcium phosphate stones and pH greater than 6.0 may reduce the tendency for uric acid stone formation. Source: [facility] Current Interpretive Data was last revised on 2017 Protein, ur ql 1+(A) Negative [facility] Glucose, ur ql 1+(A) Negative [facility] Ketones, ur Negative Negative [facility] Bilirubin, ur Negative Negative [facility] Blood, ur Negative Negative [facility] Urobilinogen, ur <2.0 <2.0 mg/dL [facility] Nitrite, ur Negative Negative [facility] Leukocyte esterase, ur Negative Negative [facility] UA reflex comment Reflex to microscopic UA will be performed. [facility] Urine 01/07/2025 12:0 4 AM CDT 01/07/2025 12:18 AM CDT Marcelo Busch MD LAB MICROBIOLOGY - GENERAL ORDERABLES Final Result Performing Organization Address City/[facility]/ZIP Co de Phone Number [facility] Department [place] [address] * Sodium, urine, random (01/07/2025 12:04 AM CDT) Sodium, ur 62 mmol/L Comment: Interpretive Data No reference range established. Current interpretive data was last revised 2018. Urine 01/07/2025 12:0 4 AM CDT 01/07/2025 12:24 AM CDT Franklin Ledezma MD PhD LAB URINE ORDERABLES Fin al Result Performing Organization Address City/[facility]/ZIP Co de Phone Number [facility] [place] [address] * Osmolality, urine (01/07/2025 12:04 AM CDT) Osmo, ur 425 mOsm/kg Urine 01/07/2025 12:0 4 AM CDT 01/07/2025 12:24 AM CDT Franklin Ledezma MD PhD LAB URINE ORDERABLES Fin al Result Performing Organization Address [facility] Co de Phone Number [facility] [place] [address] * (ABNORMAL) Urinalysis, microscopic only (01/07/2025 12:04 AM CDT) WBC, ur 0-5 0 - 5 /HPF RBC, ur 0-2 0 - 2 /HPF [facility] Mucous, ur Present(A) [facility] Granular casts, ur 1-5(A) 0 - 0 /LPF [facility] Culture Reflex Comment Reflex conditions for urine culture (WBC >10) not met. [facility] Urine 01/07/2025 12:0 4 AM CDT 01/07/2025 12:18 AM CDT Franklin Ledezma MD PhD LAB URINE ORDERABLES Fin al Result Performing Organization Address [facility] de Phone Number [facility] [place] [address] * Throat culture Throat (01/07/2025 12:04 AM CDT) Report Final Report: No growth of pathogens. Throat 01/07/2025 12:0 4 AM CDT 01/07/2025 12:18 AM CDT Narrative [facility] - 01/07/2025 7:02 PM CDT Testing performed by [facility] ([phone]). Franklin Ledezma MD PhD LAB MICROBIOLOGY - GENER AL ORDERABLES Final Result [facility] Department [place] [address] * Prepare RBC: 1 Units (01/06/2025 10:14 PM CDT) Pathologist [facility] Product code [id number] Unit Number [id number] [facility] Product Blood Type BPOS [facility] Dispense Status PRESUMED TRANSFUSED [facility] Blood 01/06/2025 10:1 4 PM CDT 01/06/2025 10:13 PM CDT Narrative [facility] - 01/07/2025 4:00 PM CDT Are special requirements needed? (All products are leukoreduced and CMV- safe)- >No Date required:-[id number] LRRBC # of [id number] Reasons:-Hgb <7 g/dL} Franklin Ledezma MD PhD BLOOD BANK PRODUCT ORDER RADHA Final Result [facility] Department [place] [address] * POCT glucose (01/06/2025 8:18 PM CDT) Pathologist [facility] Glucose, POC 95 70 - 199 mg/dL Blood 01/06/2025 8:18 PM CDT 01/06/2025 8:18 PM CDT Franklin Ledezma MD PhD LAB POCT ORDERABLES - DE VICE Final Result [facility] [place] [address] * MRSA Only (Staphylococcus aureus) Culture Nasal (01/06/2025 7:49 PM CDT) Pathologist [facility] Report Final Report: Negative Nasal 01/06/2025 7:49 PM CDT 01/06/2025 7:56 PM CDT Narrative [facility] - 01/07/2025 8:37 PM CDT Testing performed by [facility] ([phone]). Franklin Ledezma MD PhD LAB MICROBIOLOGY - GENER AL ORDERABLES Final Result Performing Organization Address [facility] Co de Phone Number [facility] [place] [address] * eGFR (01/06/2025 7:49 PM CDT) Pathologist [facility] eGFR [...] interpretive data was last reviewed 2021. Blood 01/06/2025 7:49 PM CDT 01/06/2025 8:03 PM CDT Franklin Ledezma MD PhD LAB BLOOD ORDERABLES Fin al Result Performing Organization Address [facility] Co de Phone Number [facility] Department of Laboratories [place] [address] * (ABNORMAL) Differential, auto (01/06/2025 7:49 PM CDT) Pathologist [facility] Neutrophil abs 1.71 1.50 - 6.50 K/cumm Imm gran abs 0.05 0.00 - 0.10 K/cumm [facility] Lymphocyte abs 0.43(L) 0.80 - 3.30 K/cumm [facility] Monocyte abs 0.52 0.20 - 0.80 K/cumm [facility] Eosinophil abs 0.07 0.00 - 0.50 K/cumm [facility] Basophil abs 0.02 0.00 - 0.10 K/cumm [facility] Neutrophil pct 61.0 % [facility] Comment: Interpretive Data Percent cell count reference ranges are not reported, since discordance with absolute values may lead to misinterpretation of CBC data. Current Interpretive Data was last revised on 2017. Imm gran pct 1.8 % [facility] Comment: Interpretive Data Percent cell count reference ranges are not reported, since discordance with absolute values may lead to misinterpretation of CBC data. Current Interpretive Data was last revised on 2017. Lymphocyte pct 15.4 % [facility] Comment: Interpretive Data Percent cell count reference ranges are not reported, since discordance with absolute values may lead to misinterpretation of CBC data. Current Interpretive Data was last revised on 2017. Monocyte pct 18.6 % [facility] Comment: Interpretive Data Percent cell count reference ranges are not reported, since discordance with absolute values may lead to misinterpretation of CBC data. Current Interpretive Data was last revised on 2017. Eosinophil pct 2.5 % [facility] Comment: Interpretive Data Percent cell count reference ranges are not reported, since discordance with absolute values may lead to misinterpretation of CBC data. Current Interpretive Data was last revised on 2017. Basophil pct 0.7 % [facility] Comment: Interpretive Data Percent cell count reference ranges are not reported, since discordance with absolute values may lead to misinterpretation of CBC data. Current Interpretive Data was last revised on 2017. Blood 01/06/2025 7:49 PM CDT 01/06/2025 8:02 PM CDT us Franklin Ledezma MD PhD LAB BLOOD ORDERABLES Fin al Result [facility] [place] [address] * (ABNORMAL) Iron profile w/ IBC (01/06/2025 7:49 PM CDT) [facility] Iron 12(L) 50 - 150 mcg/dL TIBC 123(L) 250 - 400 mcg/dL [facility] Transferrin saturation 10(L) 20 - 50 % [facility] Blood 01/06/2025 7:49 PM CDT 01/06/2025 8:03 PM CDT us Franklin Ledezma MD PhD LAB BLOOD ORDERABLES Fin al Result Performing Organization Address [facility] Co de Phone Number [facility] [place] [address] * (ABNORMAL) CBC with auto differential (01/06/2025 7:49 PM CDT) [facility] WBC 2.80(L) 3.80 - 9.90 K/cumm Hgb 6.4(C) 13.0 - 17.5 g/dL [facility] Comment:This result has been called to Lashon Garay MD by [id number] on 01/06/2025 20:24:02, and has been read back. Hct 20.7(L) 38.9 - 50.3 % [facility] Plt 255 150 - 400 K/cumm [facility] MPV 10.3 9.1 - 12.3 fL [facility] RBC 2.37(L) 4.30 - 5.80 M/cumm [facility] MCV 87.3 81.3 - 96.4 fL [facility] MCH 27.0(L) 27.1 - 33.3 pg [facility] MCHC 30.9(L) 32.3 - 35.7 g/dL [facility] RDW CV 17.2(H) 11.1 - 14.9 % [facility] RDW SD 54.8(H) 35.7 - 48.1 fL [facility] NRBC abs 0.00 0.00 - 0.01 K/cumm [facility] Blood 01/06/2025 7:49 PM CDT 01/06/2025 8:02 PM CDT Franklin Ledezma MD PhD LAB BLOOD ORDERABLES Fin al Result Performing Organization Address [facility] de Phone Number [facility] [place] [address] * (ABNORMAL) aPTT (01/06/2025 7:49 PM CDT) aPTT 24(L) 28 - 38 sec Comment: Interpretive Data Heparin therapeutic range: 66.0 - 100.0 seconds. Range based on correlation with therapeutic heparin activity range of 0.3 - 0.7 Units/mL. Current interpretive data was last revised on 2023. Blood 01/06/2025 7:49 PM CDT 01/06/2025 8:06 PM CDT Franklin Ledezma MD PhD LAB BLOOD ORDERABLES Fin al Result Performing Organization Address [facility] de Phone Number [facility] [place] [employer] [place] [address] * (ABNORMAL) Protime-INR (01/06/2025 7:49 PM CDT) PT 18.8(H) 9.7 - 13.0 sec INR 1.72(H) 0.90 - 1.20 [facility] Comment: Interpretive data Oral anticoagulant therapeutic ranges: Venous thromboembolism prophylaxis or treatment: 2.0-3.0 CARDIOLOGY Standard range: 2.0-3.0 High-intensity range: 2.5-3.5 Refer to indication-specific guidelines for appropriate target ranges for prosthetic heart valve replacement. Current interpretive data was last revised on 2019. Blood 01/06/2025 7:49 PM CDT 01/06/2025 8:06 PM CDT Franklin Ledezma MD PhD LAB BLOOD ORDERABLES Fin al Result Performing Organization Address [facility] de Phone Number [facility] [place] [address] * Type and screen (01/06/2025 7:49 PM CDT) ABO Rh B Positive Shadi, indirect Negative [facility] Blood 01/06/2025 7:49 PM CDT 01/06/2025 7:58 PM CDT Narrative [facility] - 01/06/2025 8:54 PM CDT Has the patient had Daratumumab or Isatuximab in the past 6 months?->Unknown Franklin Ledezma MD PhD LAB BLOOD BANK TEST ORDE RABLES Final Result Performing Organization Address [facility] de Phone Number [facility] [employer] [place] [address] * Uric acid (01/06/2025 7:49 PM CDT) Pathologist [facility] Uric acid 3.8 3.0 - 8.0 mg/dL Blood 01/06/2025 7:49 PM CDT 01/06/2025 8:03 PM CDT Narrative [facility] - 01/06/2025 8:34 PM CDT Tuesday and only. Morning draw. . Franklin Ledezma MD PhD LAB BLOOD ORDERABLES Fin al Result Performing Organization Address [facility] Co de Phone Number [facility] [place] [employer] [place] [address] * Phosphorus (01/06/2025 7:49 PM CDT) Phosphorus, pl 2.5 2.3 - 4.5 mg/dL Blood 01/06/2025 7:49 PM CDT 01/06/2025 8:03 PM CDT Franklin Ledezma MD PhD LAB BLOOD ORDERABLES Fin al Result Performing Organization Address [facility] Co de Phone Number [facility] [place] [address] * (ABNORMAL) Lactate dehydrogenase (LD) (01/06/2025 7:49 PM CDT) [facility] Lactate dehydrogenase (LDH) 827(H) 100 - 250 Units/L Blood 01/06/2025 7:49 PM CDT 01/06/2025 8:03 PM CDT Narrative [facility] - 01/06/2025 8:34 PM CDT Tuesday and only. Morning draw. Franklin Ledezma MD PhD LAB BLOOD ORDERABLES Fin al Result Performing Organization Address [facility] Co de Phone Number [facility] [place] [address] * (ABNORMAL) Ferritin (01/06/2025 7:49 PM CDT) [facility] Ferritin 793(H) 30 - 400 ng/mL Blood 01/06/2025 7:49 PM CDT 01/06/2025 8:03 PM CDT Franklin Ledezma MD PhD LAB BLOOD ORDERABLES Fin al Result Performing Organization Address [facility] Co de Phone Number [facility] [place] [address] * (ABNORMAL) Comprehensive metabolic panel (01/06/2025 7:49 PM CDT) [facility] Sodium 134(L) 135 - 145 mmol/L Potassium, pl 4.0 3.3 - 4.9 mmol/L [facility] Chloride 100 97 - 110 mmol/L [facility] CO2 25 22 - 32 mmol/L [facility] Anion gap 9 2 - 15 mmol/L [facility] BUN 14 6 - 25 mg/dL [facility] Creatinine 0.77(L) 0.80 - 1.30 mg/dL [facility] Glucose 83 70 - 199 mg/dL [facility] [...] interpretive data was last revised 2022. Calcium 7.9(L) 8.5 - 10.3 mg/dL [facility] Bilirubin, total 0.3 0.1 - 1.2 mg/dL [facility] Protein, pl 5.2(L) 6.5 - 8.5 g/dL [facility] Albumin 2.3(L) 3.5 - 5.0 g/dL [facility] Alk phos 286(H) 40 - 130 Units/L [facility] ALT 25 7 - 55 Units/L [facility] AST 36 10 - 50 Units/L [facility] Blood 01/06/2025 7:49 PM CDT 01/06/2025 8:03 PM CDT us Franklin Ledezma MD PhD LAB BLOOD ORDERABLES Fin al Result [facility] Department [place] [address] * MA CRITICAL CARE ILL/INJURED PATIENT INIT 30-74 MIN (01/06/2025 6:03 PM CDT) Narrative Maicol Nunez MD - 01/06/2025 6:03 PM CDT Maicol Nunez MD 01/19/2025 6:45 PM Critical Care Performed by: Maicol Nunez MD Authorized by: Maicol Nunez MD Critical care provider statement: As reflected in the history, physical exam, orders, notes, and/or MDM, I was personally present while the patient was critically ill and provided critical care services for 45 minutes, excluding time involved in separately billable procedures. Critical care was necessary to treat or prevent imminent or life-threatening deterioration of the following condition(s): unstable vital signs lactic acidosis Critical care was time spent by me providing the following: active repletion of electrolytes acute pain control us Maicol Nunez MD IN CLINIC/BEDSIDE ORDERA BLES Edited Result - Final * Troponin I high-sensitivity 4-hour (01/06/2025 4:27 PM CDT) Trop I hs 4 <=35 ng/L Comment: Interpretive Data For further hscTnI resources including the diagnostic algorithm and an aid in interpretation, copy and paste this link: https://bjhlab.testcatalog.org/show/hsTrop-1 Current Interpretive Data last revised 2020. Trop I hs delta 0 ng/L [facility] Trop I hs interp Insignificant [facility] Blood 01/06/2025 4:27 PM CDT 01/06/2025 4:47 PM CDT us Jacqueline Kwon MD LAB BLOOD ORDERABLES Asuncion l Result Performing Organization Address [facility] Co de Phone Number [facility] Department [place] [address] * Sepsis Lactate w/ Reflex (01/06/2025 4:27 PM CDT) Sepsis Lactate 1.4 0.7 - 2.0 mmol/L Blood 01/06/2025 4:27 PM CDT 01/06/2025 4:39 PM CDT Marcelo Busch MD LAB BLOOD ORDERABLE S Final Result [facility] Department [place] [address] * POCT glucose (01/06/2025 4:10 PM CDT) [facility] Glucose, POC 125 70 - 199 mg/dL Blood 01/06/2025 4:10 PM CDT 01/06/2025 4:10 PM CDT Franklin Ledezma MD PhD LAB POCT ORDERABLES - DE VICE Final Result Performing Organization Address [facility] [place] [address] * Troponin I high-sensitivity 2-hour (01/06/2025 2:46 PM CDT) [facility] Trop I hs 4 <=35 ng/L Comment: Interpretive Data For further hscTnI resources including the diagnostic algorithm and an aid in interpretation, copy and paste this link: https://bjhlab.testcatalog.org/show/hsTrop-1 Current Interpretive Data last revised 2020. Trop I hs delta 0 ng/L [facility] Trop I hs interp Insignificant [facility] Blood 01/06/2025 2:46 PM CDT 01/06/2025 3:21 PM CDT Jacqueline Kwon MD LAB BLOOD ORDERABLES Asuncion l Result Performing Organization Address [facility]/ZIP Co de Phone Number [facility] [place] [address] * Troponin I high-sensitivity series (baseline, 2hr, 4hr, 6hr) (01/06/2025 12:56 PM CDT) [facility] Trop I hs 4 <=35 ng/L Comment: Interpretive Data For further hscTnI resources including the diagnostic algorithm and an aid in interpretation, copy and paste this link: https://bjhlab.testcatalog.org/show/hsTrop-1 Current Interpretive Data last revised 2020. Blood 01/06/2025 12:5 6 PM CDT 01/06/2025 1:30 PM CDT us Maicol Nunez MD LAB BLOOD ORDERABLES Fin al Result [facility] [place] [address] * (ABNORMAL) Sepsis Lactate w/ Reflex (01/06/2025 12:56 PM CDT) Sepsis Lactate 2.6(H) 0.7 - 2.0 mmol/L Blood 01/06/2025 12:5 6 PM CDT 01/06/2025 1:15 PM CDT us Marcelo Busch MD LAB BLOOD ORDERABLE S Final Result Performing Organization Address [facility] Co de Phone Number [facility] [place] [address] * eGFR (01/06/2025 12:56 PM CDT) eGFR >90 >=60 mL/min/1. 73 m2 [...] interpretive data was last reviewed 2021. Blood 01/06/2025 12:5 6 PM CDT 01/06/2025 1:29 PM CDT us Jacqueline Kwon MD LAB BLOOD ORDERABLES Asuncion quintero Result [facility] Department [place] [address] * (ABNORMAL) Differential, auto (01/06/2025 12:56 PM CDT) Pathologist [facility] Neutrophil abs 2.77 1.50 - 6.50 K/cumm Imm gran abs 0.04 0.00 - 0.10 K/cumm [facility] Lymphocyte abs 0.42(L) 0.80 - 3.30 K/cumm [facility] Monocyte abs 0.35 0.20 - 0.80 K/cumm [facility] Eosinophil abs 0.07 0.00 - 0.50 K/cumm [facility] Basophil abs 0.02 0.00 - 0.10 K/cumm [facility] Neutrophil pct 75.6 % [facility] Comment: Interpretive Data Percent cell count reference ranges are not reported, since discordance with absolute values may lead to misinterpretation of CBC data. Current Interpretive Data was last revised on 2017. Imm gran pct 1.1 % [facility] Comment: Interpretive Data Percent cell count reference ranges are not reported, since discordance with absolute values may lead to misinterpretation of CBC data. Current Interpretive Data was last revised on 2017. Lymphocyte pct 11.4 % [facility] Comment: Interpretive Data Percent cell count reference ranges are not reported, since discordance with absolute values may lead to misinterpretation of CBC data. Current Interpretive Data was last revised on 2017. Monocyte pct 9.5 % [facility] Comment: Interpretive Data Percent cell count reference ranges are not reported, since discordance with absolute values may lead to misinterpretation of CBC data. Current Interpretive Data was last revised on 2017. Eosinophil pct 1.9 % [facility] Comment: Interpretive Data Percent cell count reference ranges are not reported, since discordance with absolute values may lead to misinterpretation of CBC data. Current Interpretive Data was last revised on 2017. Basophil pct 0.5 % [facility] Comment: Interpretive Data Percent cell count reference ranges are not reported, since discordance with absolute values may lead to misinterpretation of CBC data. Current Interpretive Data was last revised on 2017. Blood 01/06/2025 12:5 6 PM CDT 01/06/2025 1:29 PM CDT Jacqueline Kwon MD LAB BLOOD ORDERABLES Asuncion quintero Result [facility] Department [place] [address] * Respiratory pathogen panel Nasopharyngeal (01/06/2025 12:56 PM CDT) Pathologist [facility] Influenza A RNA Not Detected Not Detected Influenza B RNA Not Detected Not Detected [facility] RSV RNA Not Detected Not Detected [facility] COVID-19 RNA Not Detected Not Detected [facility] Coronavirus 229E RNA Not Detected Not Detected [facility] Coronavirus HKU1 RNA Not Detected Not Detected [facility] Coronavirus NL63 RNA Not Detected Not Detected [facility] Coronavirus OC43 RNA Not Detected Not Detected [facility] Adenovirus DNA Not Detected Not Detected [facility] Metapneumovirus RNA Not Detected Not Detected [facility] Rhinovirus/Enterov irus RNA Not Detected Not Detected [facility] Parainfluenza 1 RNA Not Detected Not Detected [facility] Parainfluenza 2 RNA Not Detected Not Detected [facility] Parainfluenza 3 RNA Not Detected Not Detected [facility] Parainfluenza 4 RNA Not Detected Not Detected [facility] B. pertussis DNA Not Detected Not Detected [facility] B. parapertussis DNA Not Detected Not Detected [facility] C. pneumoniae DNA Not Detected Not Detected [facility] M. pneumoniae DNA Not Detected Not Detected [facility] Nasopharyngeal 01/06/2025 12 :56 PM CDT 01/06/2025 2:06 PM CDT [facility]ative [facility] - 01/06/2025 2:57 PM CDT Is the Patient experiencing symptoms consistent with COVID?->Unknown Surveillance testing for transplant patient?->No Interpretive Data [employer] Home Inventory S[pecialists FilmArray Respiratory Panel (RP2.1) assay is a multiplexed real-time PCR based nucleic acid test capable of simultaneous qualitative detection and identification of multiple respiratory viral and bacterial nucleic acids, including SARS Coronavirus 2 (the causative agent of COVID-19). The following bacteria, viruses and virus subtypes can be identified using the FilmArray RP2.1 assay: Bordetella pertussis, Bordetella parapertussis, Chlamydia pneumoniae, Mycoplasma pneumoniae, Adenovirus, SARS Coronavirus 2, seasonal coronaviruses (Coronavirus HKU1, Coronavirus NL63, Coronavirus 229E, and Coronavirus OC43), Influenza A, Influenza A subtype H1, Influenza A subtype H3, Influenza A subtype 2009 H1, Influenza B, Metapneumovirus, Parainfluenza 1, Parainfluenza 2, Parainfluenza 3, Parainfluenza 4, RSV, Rhinovirus/Enterovirus. Due to the genetic similarity between human Rhinovirus and Enterovirus, the FilmArray RP2.1 assay cannot reliably differentiate them. Coronavirus OC43 may cross-react with some isolates of Coronavirus HKU1. A dual positive result may be due to cross-reactivity or may indicate a co- infection. The detection and identification of specific viral and bacterial nucleic acids from individuals exhibiting signs and symptoms of a respiratory infection aids in the diagnosis of respiratory infection if used in conjunction with other clinical and epidemiological information. The results of this test should not be used as the sole basis for diagnosis, treatment, or other management decisions. Negative results in the setting of a respiratory illness may be due to infection with pathogens that are not detected by this test. Positive results do not rule out infection/co-infection with other organisms. The agent(s) detected by the FilmArray RP2.1 may not be the definite cause of disease. Additional testing (lab, imaging, etc.) may be necessary when evaluating a patient with possible respiratory tract infection. The FilmArray RP2.1 assay has FDA clearance for testing of IRON MELTER swabs. The performance of additional specimen types has been assessed by the performing laboratory. The performance characteristics of this assay have been determined by [facility] Molecular Infectious Disease Laboratory. Current interpretive data was last revised on 22. Marcelo Busch MD LAB MICROBIOLOGY - GENERAL ORDERABLES Final Result Performing Organization Address [facility]/ZIP Co de Phone Number [facility] Department [place] [address] * (ABNORMAL) CBC with auto differential (01/06/2025 12:56 PM CDT) Pathologist [facility] WBC 3.67(L) 3.80 - 9.90 K/cumm Hgb 7.3(L) 13.0 - 17.5 g/dL [facility] Hct 23.2(L) 38.9 - 50.3 % [facility] Plt 287 150 - 400 K/cumm [facility] MPV 9.8 9.1 - 12.3 fL [facility] RBC 2.68(L) 4.30 - 5.80 M/cumm [facility] MCV 86.6 81.3 - 96.4 fL [facility] MCH 27.2 27.1 - 33.3 pg [facility] MCHC 31.5(L) 32.3 - 35.7 g/dL [facility] RDW CV 17.2(H) 11.1 - 14.9 % [facility] RDW SD 54.6(H) 35.7 - 48.1 fL [facility] NRBC abs 0.00 0.00 - 0.01 K/cumm [facility] Blood 01/06/2025 12:5 6 PM CDT 01/06/2025 1:29 PM CDT Maicol Nunez MD LAB BLOOD ORDERABLES Fin al Result Performing Organization Address City/[facility]/ZIP Co de Phone Number [facility] Department [place] [address] * Blood culture Blood (01/06/2025 12:56 PM CDT) Report Final Report: No growth Blood 01/06/2025 12:5 6 PM CDT 01/06/2025 2:24 PM CDT Narrative JOB MCCOLLUM - 01/10/2025 4:00 PM CDT From a different site than #1. Collection->Peripheral 1. Blood cultures are incubated for 4 days on a continuously monitored blood culture system. The first report of a negative culture is issued within 24 hours of receipt of the specimen in the laboratory. 2. Positive culture results are reported as soon as they are detected. 3. The most important factor for detection of microbes in the setting of bloodstream infection is the volume of blood submitted for culture. Failure to collect an optimal blood volume can result in false negative blood cultures. 4. For pediatric patients, the recommended blood volume to collect follows a weight based strategy. See the electronic test catalog for collection instructions. 5. For positive blood cultures, a rapid molecular test may be performed for organism identification using the [employer]o ePlex blood culture identification panel for gram positive (BCID-GP) and gram negative (BCID-GN) organisms. This nucleic acid amplification test detects microbial DNA in positive blood culture broth. This assay has been cleared by the [place] Food and Drug Administration and its performance characteristics have been verified by the [facility] Microbiology Laboratory. For questions about this culture, contact the Microbiology Laboratory at [phone]. Interpretive data was last revised on 24. Marcelo Busch MD LAB MICROBIOLOGY - GENERAL ORDERABLES Final Result J[facility]CCOLLUM [facility] Department [place] [address] * Blood culture Blood (01/06/2025 12:56 PM CDT) Report Final Report: No growth Blood 01/06/2025 12:5 6 PM CDT 01/06/2025 2:24 PM CDT Narrative JOB MCCOLLUM - 01/10/2025 4:00 PM CDT Collection->Peripheral 1. Blood cultures are incubated for 4 days on a continuously monitored blood culture system. The first report of a negative culture is issued within 24 hours of receipt of the specimen in the laboratory. 2. Positive culture results are reported as soon as they are detected. 3. The most important factor for detection of microbes in the setting of bloodstream infection is the volume of blood submitted for culture. Failure to collect an optimal blood volume can result in false negative blood cultures. 4. For pediatric patients, the recommended blood volume to collect follows a weight based strategy. See the electronic test catalog for collection instructions. 5. For positive blood cultures, a rapid molecular test may be performed for organism identification using the [employer]o ePlex blood culture identification panel for gram positive (BCID-GP) and gram negative (BCID-GN) organisms. This nucleic acid amplification test detects microbial DNA in positive blood culture broth. This assay has been cleared by the [place] Food and Drug Administration and its performance characteristics have been verified by the [facility] Microbiology Laboratory. For questions about this culture, contact the Microbiology Laboratory at [phone]. Interpretive data was last revised on 24. us Marcelo Busch MD LAB MICROBIOLOGY - GENERAL ORDERABLES Final Result Performing Organization Address City/[facility]/ZIP Co de Phone Number [facility] Department [place] [address] * Osmolality, blood (01/06/2025 12:56 PM CDT) Pathologist [facility] Osmo 283 275 - 300 mOsm/kg Blood 01/06/2025 12:5 6 PM CDT 01/06/2025 1:29 PM CDT us Franklin Ledezma MD PhD LAB BLOOD ORDERABLES Fin al Result Performing Organization Address City/[facility]/ZIP Co de Phone Number [facility] Department [place] [address] * (ABNORMAL) Comprehensive metabolic panel (01/06/2025 12:56 PM CDT) Sodium 129(L) 135 - 145 mmol/L Potassium, pl 4.1 3.3 - 4.9 mmol/L [facility] Chloride 95(L) 97 - 110 mmol/L [facility] CO2 24 22 - 32 mmol/L [facility] Anion gap 10 2 - 15 mmol/L [facility] BUN 15 6 - 25 mg/dL [facility] Creatinine 0.90 0.80 - 1.30 mg/dL [facility] Glucose 276(H) 70 - 199 mg/dL [facility] [...] interpretive data was last revised 2022. Calcium 8.4(L) 8.5 - 10.3 mg/dL [facility] Bilirubin, total 0.4 0.1 - 1.2 mg/dL [facility] Protein, pl 6.0(L) 6.5 - 8.5 g/dL [facility] Albumin 2.6(L) 3.5 - 5.0 g/dL [facility] Alk phos 310(H) 40 - 130 Units/L [facility] ALT 31 7 - 55 Units/L [facility] AST 36 10 - 50 Units/L [facility] Blood 01/06/2025 12:5 6 PM CDT 01/06/2025 1:29 PM CDT us Maicol Nunez MD LAB BLOOD ORDERABLES Fin al Result [facility] Department [place] [address] * XR Chest PA Lateral 2 Views (If patient hemodynamically stable and ambulatory) (01/06/2025 11:51 AMCDT) Anatomical Region Laterality Modality Body, Chest N/A Computed Radiogr aphy 01/06/2025 12:3 3 PM CDT Impressions 01/06/2025 12:35 PM CDT Comparison is made to CT of 12/24/2024. There is a right internal jugular approach central venous port in place with tip projecting over the superior cavoatrial junction. Left shoulder arthroplasty. Mild left basilar patchy airspace opacities within the left lower lobe likely represent atelectasis and/or aspiration; however, developing pneumonia may appear similar. No pleural effusion or pneumothorax. Cardiomediastinal silhouette is stable. Dictated by: Brendan Pineda M.D. The radiology attending physician has personally reviewed this study, and had reviewed and/or edited this written report and agrees with it. Electronically signed by: Manuel Flaherty M.D. Narrative 01/06/2025 12:35 PM CDT EXAMINATION: 2 view chest radiograph Procedure Note Manuel Flaherty MD - 01/06/2025 EXAMINATION: 2 view chest radiograph IMPRESSION: Comparison is made to CT of 12/24/2024. There is a right internal jugular approach central venous port in place with tip projecting over the superior cavoatrial junction. Left shoulder arthroplasty. Mild left basilar patchy airspace opacities within the left lower lobe likely represent atelectasis and/or aspiration; however, developing pneumonia may appear similar. No pleural effusion or pneumothorax. Cardiomediastinal silhouette is stable. Dictated by: Brendan Pineda M.D. The radiology attending physician has personally reviewed this study, and had reviewed and/or edited this written report and agrees with it. Electronically signed by: Manuel Flaherty M.D. Maicol Nunez MD IMG XR PROCEDURES Final Result * (ABNORMAL) POCT ketone, blood (01/06/2025 11:45 AM CDT) Beta-Hydroxybut yrate, POC 0.7(H) 0.0 - 0.5 mmol/L Blood 01/06/2025 11:4 5 AM CDT 01/06/2025 11:45 AM CDT us Maicol Nunez MD LAB POCT ORDERABLES - DE VICE Final Result Performing Organization Address City/[facility]/ZIP Co de Phone Number [facility] [place] [address] * (ABNORMAL) POCT glucose (01/06/2025 11:44 AM CDT) [facility] Signature Glucose, POC 316(H) 70 - 199 mg/dL Blood 01/06/2025 11:4 4 AM CDT 01/06/2025 11:44 AM CDT us Notinfile Unknown LAB POCT ORDERABLES - DEVICE F inal Result Performing Organization Address [facility] Co de Phone Number [facility] Department [place] [address] * ECG 12-LEAD (01/06/2025 11:39 AM CDT) Narrative [facility] - 01/06/2025 11:39 AM CDT Joey Crowder MD 01/06/2025 11:40 AM ECG 12 lead Date/Time: 01/06/2025 11:39 AM Performed by: Joey Crowder MD Authorized by: Jacqueline Kwon MD Rate: ECG rate: 95 ECG rate assessment: normal Rhythm: Rhythm: sinus rhythm Ectopy: Ectopy: PAC QRS: QRS axis: Normal QRS intervals: Normal Conduction: Conduction: normal ST segments: ST segments: Normal T waves: T waves: non-specific Other findings: Other findings: prolonged qTc interval and low voltage Previous ECG: Previous ECG: Compared to current Similarity: No change Interpretation: Interpretation: No acute injury pattern Recommended Follow-up: Recommended follow up: further workup in the ED Procedure Note Joey Crowder MD - 01/06/2025 11:39 AM CDT Procedure ECG 12 lead Date/Time: 01/06/2025 11:39 AM Performed by: Joey Crowder MD Authorized by: Jacqueline Kwon MD Rate: ECG rate: 95 ECG rate assessment: normal Rhythm: Rhythm: sinus rhythm Ectopy: Ectopy: PAC QRS: QRS axis: Normal QRS intervals: Normal Conduction: Conduction: normal ST segments: ST segments: Normal T waves: T waves: non-specific Other findings: Other findings: prolonged qTc interval and low voltage Previous ECG: Previous ECG: Compared to current Similarity: No change Interpretation: Interpretation: No acute injury pattern Recommended Follow-up: Recommended follow up: further workup in the ED Joey Crowder MD 01/06/25 1140 us Maicol Nunez MD ECG ORDERABLES Final Re sult [facility] * (ABNORMAL) POCT glucose (12/31/2024 2:29 PM CDT) Glucose, POC 341(H) 70 - 199 mg/dL Blood 12/31/2024 2:29 PM CDT 12/31/2024 2:29 PM CDT us Franklin Ledezma MD PhD LAB POCT ORDERABLES - DE VICE Final Result Performing Organization Address City/[facility]/ZIP Co de Phone Number [facility] Department [place] [address] * eGFR (12/31/2024 1:00 PM CDT) eGFR 73 >=60 mL/min/1. 73 m2 Comment: Interpretive Data [...] interpretive data was last reviewed 2021. Blood 12/31/2024 1:00 PM CDT 12/31/2024 1:04 PM CDT us Franklin Ledezma MD PhD LAB BLOOD ORDERABLES Fin al Result JOB MCCOLLUM [facility] Department [place] [address] * (ABNORMAL) Differential, auto (12/31/2024 1:00 PM CDT) Neutrophil abs 8.21(H) 1.50 - 6.50 K/cumm Comment:Testing performed by : [facility], [address] [place], [place] [phone] Lymphocyte abs 0.58(L) 0.80 - 3.30 K/cumm [facility]ERUBALDO [facility] Comment:Testing performed by : [facility], [address] [place] [phone] Monocyte abs 1.98(H) 0.20 - 0.80 K/cumm JOB BJ Comment:Testing performed by : [facility], [address] [place], [place] [phone] Eosinophil abs 0.03 0.00 - 0.50 K/cumm CERUBALDO BJ Comment:Testing performed by : [facility], [address] [place] [phone] Basophil abs 0.09 0.00 - 0.10 K/cumm CERUBALDO BJ Comment:Testing performed by : [facility], [address] [place] [phone] Neutrophil pct 75.5 % CERUBALDO MCCOLLUM Comment: Interpretive Data Percent cell count reference ranges are not reported, since discordance with absolute values may lead to misinterpretation of CBC data. Current Interpretive Data was last revised on 2017. Testing performed by: [facility], [address] [place] [phone] Lymphocyte pct 5.3 % [facility] Comment: Interpretive Data Percent cell count reference ranges are not reported, since discordance with absolute values may lead to misinterpretation of CBC data. Current Interpretive Data was last revised on 2017. Testing performed by: [facility], [address] [place] [phone] Monocyte pct 18.2 % CERUBALDO MCCOLLUM Comment: Interpretive Data Percent cell count reference ranges are not reported, since discordance with absolute values may lead to misinterpretation of CBC data. Current Interpretive Data was last revised on 2017. Testing performed by: [facility], [address] [place], [place] [id number] Eosinophil pct 0.2 % JOB MCCOLLUM Comment: Interpretive Data Percent cell count reference ranges are not reported, since discordance with absolute values may lead to misinterpretation of CBC data. Current Interpretive Data was last revised on 2017. Testing performed by: [facility], [address] [place] [phone] Basophil pct 0.8 % [facility]DO [facility] Comment: Interpretive Data Percent cell count reference ranges are not reported, since discordance with absolute values may lead to misinterpretation of CBC data. Current Interpretive Data was last revised on 2017. Testing performed by: [facility], [address] [place] [phone] Blood 12/31/2024 1:00 PM CDT 12/31/2024 1:06 PM CDT us Franklin Ledezma MD PhD LAB BLOOD ORDERABLES Fin al Result JOB MCCOLLUM [facility] Department [place] [address] * (ABNORMAL) CBC with auto differential (12/31/2024 1:00 PM CDT) [facility] Signature WBC 10.88(H) 3.80 - 9.90 K/cumm Comment:Testing performed by : [facility], [address] [place] [address] Hgb 8.6(L) 13.0 - 17.5 g/dL CERNER BJ Comment:Testing performed by : [facility], [address] [place] [address] Hct 26.7(L) 38.9 - 50.3 % CERNER BJ Comment:Testing performed by : [facility], [address] [place] [address] Plt 358 150 - 400 K/cumm CERNER BJ Comment:Testing performed by : [facility], [address] [place] [address] MPV 6.9 6.8 - 10.4 fL CERNER BJ Comment:Testing performed by : [facility], [address] [place] [address] RBC 3.17(L) 4.30 - 5.80 M/cumm CERNER BJ Comment:Testing performed by : [facility], [address] [place] [address] MCV 84.2 81.3 - 96.4 fL CERNER BJ Comment:Testing performed by : [facility], [address] [place] [address] MCH 27.2 27.1 - 33.3 pg CERNER BJ Comment:Testing performed by : [facility], [address] [place] [address] MCHC 32.3 32.3 - 35.7 g/dL CERNER BJ Comment:Testing performed by : [facility], [address] [place] [address] RDW CV 21.4(H) 11.1 - 14.9 % CERNER BJ Comment:Testing performed by : [facility], [address] [place] [address] NRBC abs 0.00 0.00 - 0.01 K/cumm [facility] Comment:Testing performed by : [facility], [address] [place] [phone] Blood 12/31/2024 1:00 PM CDT 12/31/2024 1:06 PM CDT Franklin Ledezma MD PhD LAB BLOOD ORDERABLES Fin al Result Performing Organization Address [facility] Co de Phone Number [facility] [place] [address] * (ABNORMAL) Cancer antigen 19-9 (12/31/2024 1:00 PM CDT) Pathologist [facility] CA 19-9 ag 67.1(H) <=35.0 units/mL Comment: Interpretive Data The Lexi CA 19-9 assay procedure was used. Results from different manufacturers or methods may not be comparable. Serial testing should be performed using the same method. Blood 12/31/2024 1:00 PM CDT 12/31/2024 1:24 PM CDT Franklin Ledezma MD PhD LAB BLOOD ORDERABLES Fin al Result Performing Organization Address [facility] de Phone Number [facility] [place] [address] * (ABNORMAL) Comprehensive metabolic panel (12/31/2024 1:00 PM CDT) Pathologist [facility] Sodium 132(L) 135 - 145 mmol/L Potassium, pl 4.8 3.3 - 4.9 mmol/L [facility] Chloride 97 97 - 110 mmol/L [facility] CO2 24 22 - 32 mmol/L [facility] Anion gap 11 2 - 15 mmol/L [facility] BUN 14 6 - 25 mg/dL [facility] Creatinine 1.16 0.80 - 1.30 mg/dL [facility] Glucose 379(H) 70 - 199 mg/dL [facility] [...] 10.3 mg/dL [facility] Bilirubin, total 0.7 0.1 - 1.2 mg/dL [facility] Protein, pl 6.3(L) 6.5 - 8.5 g/dL CERNER [facility] Albumin 3.1(L) 3.5 - 5.0 g/dL [facility] Alk phos 405(H) 40 - 130 Units/L [facility] ALT 36 7 - 55 Units/L [facility] AST 116(H) 10 - 50 Units/L [facility] Blood 12/31/2024 1:00 PM CDT 12/31/2024 1:04 PM CDT us Franklin Ledezma MD PhD LAB BLOOD ORDERABLES Fin al Result Performing Organization Address City/State/[facility] Co de Phone Number [facility] Department [place] [address] * CT abdomen pelvis with contrast (12/27/2024 12:32 PM CDT) Anatomical Region Laterality Modality Body N/A Computed Tomogra phy 12/27/2024 2:03 PM CDT Impressions 12/28/2024 3:19 AM CDT 1. Unchanged mass abutting the 3rd portion of the duodenum keeping with the patient's known history of pancreatic cancer. No evidence of obstruction as shown by contrast passing through the duodenum 2. 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 3. Small nonocclusive subsegmental left lower lobe pulmonary embolus without right heart strain. The Critical results were discussed with JEREMIAH Gannon by Dr. Dea Wilkinson on 12/27/2024 at 2:00 PM Dictated by: Dea Wilkinson M.D. The radiology attending physician has personally reviewed this study, and had reviewed and/or edited this written report and agrees with it. Electronically signed by: Montana Soliz M.D. Narrative 12/28/2024 3:19 AM CDT EXAMINATION: Computed tomography of the abdomen with intravenous contrast HISTORY: Known pancreatic, duodenal cancer. Concern for need for duodenal stenting. TECHNIQUE: Transaxial computed tomographic images of the abdomen were obtained with intravenous contrast according to the standard protocol after the uneventful administration of 69 mL Opti-Ray 350 intravenous contrast. COMPARISON: CT chest abdomen pelvis from 12/24/2024 FINDINGS: Heart size normal. No pericardial effusion. Partially imaged catheter tip terminating in the superior cavoatrial junction. Thickened distal esophagus which may be associated with gastroesophageal reflux. Small nonocclusive subsegmental pulmonary embolus in left lower lobe without evidence of right heart strain. No pleural effusion. Innumerable diffuse hepatic metastases. No biliary ductal dilatation. Patent hepatic and portal veins. Gallbladder, spleen, right kidney normal. Left kidney with small unchanged cyst. Unchanged enlarged left adrenal, likely hyperplasia. Bladder appears normal, although difficult to visualize due to artifact. Stable extraluminal mass surrounding the 3rd portion of the duodenum with mass effect to the adjacent fat plane which may represent superior mesenteric artery involvement. Associated 1.3 cm mesenteric lymph node and periportal lymphadenopathy. Small nonocclusive filling defect in the mesenteric vein. Stomach is decompressed with oral contrast traversing freely through the duodenum. There is narrowing of the 3rd portion of the duodenum, but no obstruction. Fat stranding present in right-sided abdominal soft tissue. Status post left hip arthroplasty. Unchanged mild ill-defined sclerosis of the inferior pubic ramus. Pars intra-articularis defect at L5. No suspicious osseous lesion. Procedure Note Montana Soliz MD - 12/28/2024 EXAMINATION: Computed tomography of the abdomen with intravenous contrast HISTORY: Known pancreatic, duodenal cancer. Concern for need for duodenal stenting. TECHNIQUE: Transaxial computed tomographic images of the abdomen were obtained with intravenous contrast according to the standard protocol after the uneventful administration of 69 mL Opti-Ray 350 intravenous contrast. COMPARISON: CT chest abdomen pelvis from 12/24/2024 FINDINGS: Heart size normal. No pericardial effusion. Partially imaged catheter tip terminating in the superior cavoatrial junction. Thickened distal esophagus which may be associated with gastroesophageal reflux. Small nonocclusive subsegmental pulmonary embolus in left lower lobe without evidence of right heart strain. No pleural effusion. Innumerable diffuse hepatic metastases. No biliary ductal dilatation. Patent hepatic and portal veins. Gallbladder, spleen, right kidney normal. Left kidney with small unchanged cyst. Unchanged enlarged left adrenal, likely hyperplasia. Bladder appears normal, although difficult to visualize due to artifact. Stable extraluminal mass surrounding the 3rd portion of the duodenum with mass effect to the adjacent fat plane which may represent superior mesenteric artery involvement. Associated 1.3 cm mesenteric lymph node and periportal lymphadenopathy. Small nonocclusive filling defect in the mesenteric vein. Stomach is decompressed with oral contrast traversing freely through the duodenum. There is narrowing of the 3rd portion of the duodenum, but no obstruction. Fat stranding present in right-sided abdominal soft tissue. Status post left hip arthroplasty. Unchanged mild ill-defined sclerosis of the inferior pubic ramus. Pars intra-articularis defect at L5. No suspicious osseous lesion. IMPRESSION: 1. Unchanged mass abutting the 3rd portion of the duodenum keeping with the patient's known history of pancreatic cancer. No evidence of obstruction as shown by contrast passing through the duodenum 2. 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 3. Small nonocclusive subsegmental left lower lobe pulmonary embolus without right heart strain. The Critical results were discussed with JEREMIAH Gannon by Dr. Dea Wilkinson on 12/27/2024 at 2:00 PM Dictated by: Dea Wilkinson M.D. The radiology attending physician has personally reviewed this study, and had reviewed and/or edited this written report and agrees with it. Electronically signed by: Montana Soliz M.D. us Franklin Ledezma MD PhD IMG CT PROCEDURES Final Result * US Vein Duplex Lower Extremity Bilateral Complete (12/24/2024 4:23 PM CDT) Anatomical Region Laterality Modality Vascular Bilateral Ultrasound 12/24/2024 1:12 PM CDT Narrative 12/24/2024 10:12 PM CDT [facility] - Department of Vascular Surgery, Vascular Laboratory [address] [place] [id number] Lower Extremity Venous Ultrasound Report Patient Name: OC DURON : 1965 (59y 8m) Study Date: 12/24/2024 1:12:10 PM Gender: M Tech: Cornel ZAMORANO Location: [facility] Ref Provider: FRANKLIN LEDEZMA Quality: Adequate Order Provider: FRANKLIN LEDEZMA PROCEDURES: Vascular Report: Venous Duplex imaging was performed bilaterally in the lower extremities. The common femoral, femoral, popliteal, posterior tibial, peroneal veins were evaluated for patency, spontaneity and phasicity with Doppler, compression and augmentation maneuvers. Great saphenous vein proximal at the junction was evaluated with compression maneuvers. 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 FINDINGS: Performing Beauty Director: Azcuena Zamorano RVT. Bilateral: Venous Doppler signals in the bilateral lower extremity are within normal limits for spontaneity and phasicity and respond normally to augmentation maneuvers. No evidence of deep vein thrombus by duplex, proximal to the calf. CONCLUSIONS: 1. There is no evidence of acute deep vein thrombosis in the lower extremities bilaterally. Noninvasive venous studies cannot rule out isolated calf vein obstruction. HISTORY: HTN, HLD, DM, Adenocarcinoma of pancreas. PREVIOUS STUDIES: No previous studies for comparison. DISCLAIMER: The study images and the final report will be retained in the patient chart by the Vascular Laboratory for the legally required time period. This chart constitutes the legal record of any testing performed. ATTESTATION: I have reviewed and interpreted the pertinent images and measurements of this study. I attest to the conclusions in the final report that is provided above. Electronically Signed By: Spike Kiran MD [facility] [phone] 12/24/2024 10:10:36 PM CDT Procedure Note Spike Kiran MD - 12/24/2024 [facility] [employer] [facility] - Department of Vascular Surgery,Vascular Laboratory [address] [place] [address] Lower Extremity Venous Ultrasound Report Patient Name: OC DURON : 1965 (59y 8m) Study Date: 12/24/2024 1:12:10 PM Gender: M Tech: Cornel PARASKirill Location: [facility] Ref Provider: FRANKLIN LEDEZMA Quality: Adequate Order Provider: FRANKLIN LEDEZMA PROCEDURES: Vascular Report: Venous Duplex imaging was performed bilaterally in the lower extremities.The common femoral, femoral, popliteal, posterior tibial, peroneal veins wereevaluated for patency, spontaneity and phasicity with Doppler, compression and augmentationmaneuvers. Great saphenous vein proximal at the junction was evaluated with compressionmaneuvers. INDICATIONS: C25.0 Malignant neoplasm of head of pancreas and C78.7 Secondary malignantneoplasm of liver and intrahepatic bile duct. FINDINGS: Performing Beauty Director: Azucena Zamorano RVT. Bilateral: Venous Doppler signals in the bilateral lower extremity are within normallimits for spontaneity and phasicity and respond normally to augmentation maneuvers.No evidence of deep vein thrombus by duplex, proximal to the calf. CONCLUSIONS: 1. There is no evidence of acute deep vein thrombosis in the lowerextremities bilaterally. Noninvasive venous studies cannot rule out isolated calf veinobstruction. HISTORY: HTN, HLD, DM, Adenocarcinoma of pancreas. PREVIOUS STUDIES: No previous studies for comparison. DISCLAIMER: The study images and the final report will be retained in the patientchart by the Vascular Laboratory for the legally required time period. This chartconstitutes the legal record of any testing performed. ATTESTATION: I have reviewed and interpreted the pertinent images and measurements ofthis study. I attest to the conclusions in the final report that is provided above. Electronically Signed By: Spike Kiran MD [facility] [phone] 12/24/2024 10:10:36 PM CDT us Franklin Ledezma MD PhD IMG US PROCEDURES Final Result * eGFR (12/24/2024 10:50 AM CDT) eGFR >90 >=60 mL/min/1. 73 [...] interpretive data was last reviewed 2021. Blood 12/24/2024 10:5 0 AM CDT 12/24/2024 10:58 AM CDT us Franklin Ledezma MD PhD LAB BLOOD ORDERABLES Fin al Result JOB MCCOLLUM [facility] Department [place] [address] * (ABNORMAL) Differential, auto (12/24/2024 10:50 AM CDT) Neutrophil abs 6.44 1.50 - 6.50 K/cumm Comment:Testing performed by : [facility], [address] [place], [place] [phone] Lymphocyte abs 0.55(L) 0.80 - 3.30 K/cumm CERUBALDO BJ Comment:Testing performed by : [facility], [address] [place] [address] Monocyte abs 1.36(H) 0.20 - 0.80 K/cumm CERUBALDO BJ Comment:Testing performed by : [facility], [address] [place] [address] Eosinophil abs 0.12 0.00 - 0.50 K/cumm CERUBALDO MCCOLLUM Comment:Testing performed by : [facility], [address] [place] [address] Basophil abs 0.08 0.00 - 0.10 K/cumm CERUBALDO BJ Comment:Testing performed by : [facility], [address] [place] [address] Neutrophil pct 75.4 % CERUBALDO MCCOLLUM Comment: Interpretive Data Percent cell count reference ranges are not reported, since discordance with absolute values may lead to misinterpretation of CBC data. Current Interpretive Data was last revised on 2017. Testing performed by: [facility], [address] [place] [phone] Lymphocyte pct 6.4 % CERUBALDO MCCOLLUM Comment: Interpretive Data Percent cell count reference ranges are not reported, since discordance with absolute values may lead to misinterpretation of CBC data. Current Interpretive Data was last revised on 2017. Testing performed by: [facility], [address] [place] [phone] Monocyte pct 15.9 % CERUBALDO MCCOLLUM Comment: Interpretive Data Percent cell count reference ranges are not reported, since discordance with absolute values may lead to misinterpretation of CBC data. Current Interpretive Data was last revised on 2017. Testing performed by: [facility], [address] [place], [place] [phone] Eosinophil pct 1.4 % JOB MCCOLLUM Comment: Interpretive Data Percent cell count reference ranges are not reported, since discordance with absolute values may lead to misinterpretation of CBC data. Current Interpretive Data was last revised on 2017. Testing performed by: [facility], [address] [place] [phone] Basophil pct 0.9 % CERUBALDO [facility] Comment: Interpretive Data Percent cell count reference ranges are not reported, since discordance with absolute values may lead to misinterpretation of CBC data. Current Interpretive Data was last revised on 2017. Testing performed by: [facility], [address] [place] [phone] Blood 12/24/2024 10:5 0 AM CDT 12/24/2024 10:52 AM CDT us Franklin Ledezma MD PhD LAB BLOOD ORDERABLES Fin al Result [facility] Department [place] [address] * (ABNORMAL) CBC with auto differential (12/24/2024 10:50 AM CDT) WBC 8.54 3.80 - 9.90 K/cumm Comment:Testing performed by : [facility], [address] [place] [address] Hgb 8.8(L) 13.0 - 17.5 g/dL CERNER BJ Comment:Testing performed by : [facility], [address] [place] [address] Hct 26.7(L) 38.9 - 50.3 % CERNER BJ Comment:Testing performed by : [facility], [address] [place] [address] Plt 374 150 - 400 K/cumm CERNER BJ Comment:Testing performed by : [facility], [address] [place] [address] MPV 6.6(L) 6.8 - 10.4 fL CERNER BJ Comment:Testing performed by : [facility], [address] [place] [address] RBC 3.20(L) 4.30 - 5.80 M/cumm CERNER BJ Comment:Testing performed by : [facility], [address] [place] [address] MCV 83.4 81.3 - 96.4 fL CERNER BJ Comment:Testing performed by : [facility], [address] [place] [address] MCH 27.5 27.1 - 33.3 pg CERNER BJ Comment:Testing performed by : [facility], [address] [place] [address] MCHC 33.0 32.3 - 35.7 g/dL CERNER BJ Comment:Testing performed by : [facility], [address] [place] [address] RDW CV 23.5(H) 11.1 - 14.9 % CERNER BJ Comment:Testing performed by : [facility], [address] [place] [phone] NRBC abs 0.00 0.00 - 0.01 K/cumm [facility] Comment:Testing performed by : [facility], [address] [place] [phone] Blood 12/24/2024 10:5 0 AM CDT 12/24/2024 10:52 AM CDT Franklin Ledezma MD PhD LAB BLOOD ORDERABLES Fin al Result Performing Organization Address [facility] de Phone Number [facility] Department [place] [address] * (ABNORMAL) Cancer antigen 19-9 (12/24/2024 10:50 AM CDT) Pathologist [facility] CA 19-9 ag 54.9(H) <=35.0 units/mL Comment: Interpretive Data The Lexi CA 19-9 assay procedure was used. Results from different manufacturers or methods may not be comparable. Serial testing should be performed using the same method. Blood 12/24/2024 10:5 0 AM CDT 12/24/2024 11:20 AM CDT Franklin Ledezma MD PhD LAB BLOOD ORDERABLES Fin al Result Performing Organization Address [facility] de Phone Number [facility] Department [place] [address] * (ABNORMAL) Comprehensive metabolic panel (12/24/2024 10:50 AM CDT) Sodium 134(L) 135 - 145 mmol/L Potassium, pl 4.1 3.3 - 4.9 mmol/L [facility] Chloride 100 97 - 110 mmol/L [facility] CO2 26 22 - 32 mmol/L [facility] Anion gap 8 2 - 15 mmol/L [facility] BUN 9 6 - 25 mg/dL [facility] Creatinine 0.77(L) 0.80 - 1.30 mg/dL [facility] Glucose 231(H) 70 - 199 mg/dL [facility] [...] 1.2 mg/dL [facility] Protein, pl 6.2(L) 6.5 - 8.5 g/dL [facility] Albumin 3.3(L) 3.5 - 5.0 g/dL [facility] Alk phos 299(H) 40 - 130 Units/L [facility] ALT 38 7 - 55 Units/L [facility] AST 48 10 - 50 Units/L [facility] Blood 12/24/2024 10:5 0 AM CDT 12/24/2024 10:58 AM CDT us Franklin Ledezma MD PhD LAB BLOOD ORDERABLES Fin al Result Performing Organization Address City/State/[facility] Co de Phone Number [facility] Department [place] [address] * CT chest abdomen pelvis with contrast (12/24/2024 9:38 AM CDT) Anatomical Region Laterality Modality Body N/A Computed Tomogra phy 12/24/2024 10:2 5 AM CDT Impressions 12/24/2024 11:27 AM CDT 1. Interval increase in size of soft tissue mass in the transverse duodenum corresponding to known adenocarcinoma. The mass is now inseparable from the pancreas and now invades the superior mesenteric vein. 2. Increase in size and number of multiple hypoattenuating hepatic lesions compatible with progressive metastatic disease. 3. No evidence of progressive disease in the chest with unchanged enlarged paratracheal lymph node. Dictated by: Geraldo Cannon MD The radiology attending physician has personally reviewed this study, and had reviewed and/or edited this written report and agrees with it. Electronically signed by: Oc Steinberg M.D. Narrative 12/24/2024 11:27 AM CDT EXAMINATION: Computed tomography of the chest, abdomen and pelvis with intravenous contrast HISTORY: Metastatic duodenal adenocarcinoma. Assess treatment response. TECHNIQUE: Transaxial computed tomographic images of the chest, abdomen and pelvis were obtained with intravenous contrast according to the standard protocol after the uneventful administration of 93 mL Opti-Ray 350 intravenous contrast. COMPARISON: 10/23/2024. Chest: No new suspicious or enlarging pulmonary nodule. Previously described 2 mm pulmonary nodule in the right upper lobe is unchanged (series 2, image 38). No pleural effusion or pneumothorax. Right internal jugular port catheter terminates in the right atrium. No supraclavicular, axillary, or hilar lymphadenopathy. There is unchanged 1.4 cm paratracheal lymph node (series 3, image 27). Thoracic aorta and main pulmonary artery are of normal caliber. Heart size is normal. Coronary artery calcification. No pericardial effusion. Small hiatal hernia. Abdomen/Pelvis: In the interval, there is been increase in the size and number of multiple hypoattenuating hepatic lesions in keeping with hepatic metastatic disease. Multiple lesions in the left lateral hemiliver were not appreciated on prior exam. Portal vasculature is patent. No biliary dilatation. Unchanged nodular thickening of the left adrenal gland. Right adrenal gland, gallbladder, and spleen are normal. There is a ill-defined soft tissue mass of the transverse duodenum measuring roughly 6.0 x 4.4 cm in axial dimensions compared to 4.5 x 4.3 cm previously. The mass now invades the superior mesenteric vein. The mass abuts but does not encase the superior mesenteric artery. Pancreas is increasingly atrophic with pancreatic ductal dilatation. The duodenal mass is inseparable from the pancreas. The kidneys enhance symmetrically. No hydronephrosis. Urinary bladder is normal. No free fluid or free air. Abdominal aorta is nonaneurysmal. No new abdominal or pelvic lymphadenopathy. No evidence of bowel obstruction. Colonic diverticulosis. Appendix is normal. Partially imaged left shoulder arthroplasty. Left hip arthroplasty. No suspicious osseous lesion. Procedure Note Oc Steinberg MD - 12/24/2024 EXAMINATION: Computed tomography of the chest, abdomen and pelvis with intravenous contrast HISTORY: Metastatic duodenal adenocarcinoma. Assess treatment response. TECHNIQUE: Transaxial computed tomographic images of the chest, abdomen and pelvis were obtained with intravenous contrast according to the standard protocol after the uneventful administration of 93 mL Opti-Ray 350 intravenous contrast. COMPARISON: 10/23/2024. Chest: No new suspicious or enlarging pulmonary nodule. Previously described 2 mm pulmonary nodule in the right upper lobe is unchanged (series 2, image 38). No pleural effusion or pneumothorax. Right internal jugular port catheter terminates in the right atrium. No supraclavicular, axillary, or hilar lymphadenopathy. There is unchanged 1.4 cm paratracheal lymph node (series 3, image 27). Thoracic aorta and main pulmonary artery are of normal caliber. Heart size is normal. Coronary artery calcification. No pericardial effusion. Small hiatal hernia. Abdomen/Pelvis: In the interval, there is been increase in the size and number of multiple hypoattenuating hepatic lesions in keeping with hepatic metastatic disease. Multiple lesions in the left lateral hemiliver were not appreciated on prior exam. Portal vasculature is patent. No biliary dilatation. Unchanged nodular thickening of the left adrenal gland. Right adrenal gland, gallbladder, and spleen are normal. There is a ill-defined soft tissue mass of the transverse duodenum measuring roughly 6.0 x 4.4 cm in axial dimensions compared to 4.5 x 4.3 cm previously. The mass now invades the superior mesenteric vein. The mass abuts but does not encase the superior mesenteric artery. Pancreas is increasingly atrophic with pancreatic ductal dilatation. The duodenal mass is inseparable from the pancreas. The kidneys enhance symmetrically. No hydronephrosis. Urinary bladder is normal. No free fluid or free air. Abdominal aorta is nonaneurysmal. No new abdominal or pelvic lymphadenopathy. No evidence of bowel obstruction. Colonic diverticulosis. Appendix is normal. Partially imaged left shoulder arthroplasty. Left hip arthroplasty. No suspicious osseous lesion. IMPRESSION: 1. Interval increase in size of soft tissue mass in the transverse duodenum corresponding to known adenocarcinoma. The mass is now inseparable from the pancreas and now invades the superior mesenteric vein. 2. Increase in size and number of multiple hypoattenuating hepatic lesions compatible with progressive metastatic disease. 3. No evidence of progressive disease in the chest with unchanged enlarged paratracheal lymph node. Dictated by: Geraldo Cannon MD The radiology attending physician has personally reviewed this study, and had reviewed and/or edited this written report and agrees with it. Electronically signed by: Oc Steinberg M.D. Franklin Ledezma MD PhD IMG CT PROCEDURES Final Result * eGFR (12/10/2024 1:45 PM CDT) eGFR >90 >=60 mL/min/1. 73 m2 [...] interpretive data was last reviewed 2021. Blood 12/10/2024 1:45 PM CDT 12/10/2024 1:49 PM CDT Franklin Ledezma MD PhD LAB BLOOD ORDERABLES Fin al Result JOB MCCOLLUM [facility] Department [place] [address] * (ABNORMAL) CBC with auto differential (12/10/2024 1:45 PM CDT) Pathologist [facility] WBC 5.28 3.80 - 9.90 K/cumm Comment:Testing performed by : [facility], [address] [place] [address] Hgb 8.4(L) 13.0 - 17.5 g/dL CERNER BJ Comment:Testing performed by : [facility], [address] [place], [place] [phone] Hct 25.8(L) 38.9 - 50.3 % CERNER BJ Comment:Testing performed by : [facility], [address] [place] [address] Plt 194 150 - 400 K/cumm CERNER BJ Comment:Testing performed by : [facility], [address] [place], [place] [phone] MPV 6.2(L) 6.8 - 10.4 fL CERNER BJ Comment:Testing performed by : [facility], [address] [place], [place] [phone] RBC 3.21(L) 4.30 - 5.80 M/cumm CERNER BJ Comment:Testing performed by : [facility], [address] [place] [address] MCV 80.4(L) 81.3 - 96.4 fL CERNER BJ Comment:Testing performed by : [facility], [address] [place] [address] MCH 26.3(L) 27.1 - 33.3 pg CERNER BJ Comment:Testing performed by : [facility], [address] [place] [address] MCHC 32.8 32.3 - 35.7 g/dL CERNER BJ Comment:Testing performed by : [facility], [address] [place] [address] RDW CV 20.3(H) 11.1 - 14.9 % CERNER BJ Comment:Testing performed by : [facility], [address] [place] [address] NRBC abs 0.00 0.00 - 0.01 K/cumm CERNER BJ Comment:Testing performed by : [facility], [address] [place], [place] [id number] Blood 12/10/2024 1:45 PM CDT 12/10/2024 1:48 PM CDT us Franklin Ledezma MD PhD LAB BLOOD ORDERABLES Brian omid Result - Final [facility] Department [place] [address] * (ABNORMAL) Manual Differential (12/10/2024 1:45 PM CDT) Cells Counted 200 Comment:Testing performed by : [facility], [address] [place], [place] [phone] Neutrophil abs 4.59 1.50 - 6.50 K/cumm CERNER BJ Comment:Testing performed by : [facility], [address] [place], [place] [id number] Lymphocyte abs 0.21(L) 0.80 - 3.30 K/cumm CERNER BJ Comment:Testing performed by : [facility], [address] [place], [place] [phone] Monocyte abs 0.32 0.20 - 0.80 K/cumm CERUBALDO BJ Comment:Testing performed by : [facility], [address] [place], [place] [id number] Eosinophil abs 0.00 0.00 - 0.50 K/cumm CERUBALDO BJ Comment:Testing performed by : [facility], [address] [place] [phone] Basophil abs 0.05 0.00 - 0.10 K/cumm CERNER BJ Comment:Testing performed by : [facility], [address] [place], [place] [id number] Neutrophil pct 87.0 % CERNER BJ Comment: Interpretive Data Percent cell count reference ranges are not reported, since discordance with absolute values may lead to misinterpretation of CBC data. Current Interpretive Data was last revised on 2017. Testing performed by: [facility], [address] [place] [phone] Lymphocyte pct 4.0 % CERNER [facility] Comment: Interpretive Data Percent cell count reference ranges are not reported, since discordance with absolute values may lead to misinterpretation of CBC data. Current Interpretive Data was last revised on 2017. Testing performed by: [facility], [address] [place] [phone] Monocyte pct 6.0 % CERNER [facility] Comment: Interpretive Data Percent cell count reference ranges are not reported, since discordance with absolute values may lead to misinterpretation of CBC data. Current Interpretive Data was last revised on 2017. Testing performed by: [facility], [address] [place] [phone] Eosinophil pct 0.0 % CERNER [facility] Comment: Interpretive Data Percent cell count reference ranges are not reported, since discordance with absolute values may lead to misinterpretation of CBC data. Current Interpretive Data was last revised on 2017. Testing performed by: [facility], [address] [place] [phone] Basophil pct 1.0 % CERNER BJ Comment: Interpretive Data Percent cell count reference ranges are not reported, since discordance with absolute values may lead to misinterpretation of CBC data. Current Interpretive Data was last revised on 2017. Testing performed by: [facility], [address] [place] [phone] Metamyelocyte pct 1.0(H) 0.0 - 0.0 % CERNER BJ Comment:Testing performed by : [facility], [address] [place] [phone] Myelocyte pct 2.0(H) 0.0 - 0.0 % CERNER BJ Comment:Testing performed by : [facility], [address] [place] [phone] RBC morphology NRBCs present(A) CERNER [facility] Comment:Testing performed by : [facility], [address] [place] [phone] Polychromasia 1+(A) CERNER [facility] Comment:Testing performed by : [facility], [address] [place] [phone] Anisocytosis 1+(A) JOB [facility] Comment:Testing performed by : [facility], [address] [place] [phone] Microcytes 1+(A) JOB [facility] Comment:Testing performed by : [facility], [address] [place] [phone] Macrocytes 1+(A) JOB [facility] Comment:Testing performed by : [facility], [address] [place] [phone] Platelet estimate Adequate JOB [facility] Comment:Testing performed by : [facility], [address] [place] [phone] Giant platelets Present(A) JOB [facility] Comment:Testing performed by : [facility], [address] [place] [phone] Blood 12/10/2024 1:45 PM CDT 12/10/2024 1:48 PM CDT us Franklin Ledezma MD PhD LAB BLOOD ORDERABLES Fin al Result [facility] Department [place] [address] * (ABNORMAL) Comprehensive metabolic panel (12/10/2024 1:45 PM CDT) Sodium 137 135 - 145 mmol/L Potassium, pl 4.4 3.3 - 4.9 mmol/L [facility] Chloride 100 97 - 110 mmol/L [facility] CO2 26 22 - 32 mmol/L [facility] Anion gap 11 2 - 15 mmol/L [facility] BUN 10 6 - 25 mg/dL [facility] Creatinine 0.83 0.80 - 1.30 mg/dL [facility] Glucose 240(H) 70 - 199 mg/dL [facility] [...] interpretive data was last revised 2022. Calcium 9.3 8.5 - 10.3 mg/dL [facility] Bilirubin, total 0.3 0.1 - 1.2 mg/dL CERNER [facility] Protein, pl 6.4(L) 6.5 - 8.5 g/dL CERNER BJ Albumin 3.4(L) 3.5 - 5.0 g/dL CERNER [facility] Alk phos 295(H) 40 - 130 Units/L CERNER [facility] ALT 67(H) 7 - 55 Units/L CERNER [facility] AST 66(H) 10 - 50 Units/L [facility] Blood 12/10/2024 1:45 PM CDT 12/10/2024 1:49 PM CDT us Franklin Ledezma MD PhD LAB BLOOD ORDERABLES Fin al Result [facility] Department [place] [address] * eGFR (12/03/2024 2:05 PM CDT) eGFR >90 >=60 mL/min/1. 73 m2 [...] interpretive data was last reviewed 2021. Blood 12/03/2024 2:05 PM CDT 12/03/2024 2:15 PM CDT us Franklin Ledezma MD PhD LAB BLOOD ORDERABLES Fin al Result [facility] Department [place] [address] * (ABNORMAL) CBC with auto differential (12/03/2024 2:05 PM CDT) WBC 6.43 3.80 - 9.90 K/cumm Comment:Testing performed by : [facility], [address] [place] [address] Hgb 8.7(L) 13.0 - 17.5 g/dL CERNER BJ Comment:Testing performed by : [facility], [address] [place] [address] Hct 26.7(L) 38.9 - 50.3 % CERNER BJ Comment:Testing performed by : [facility], [address] [place] [address] Plt 348 150 - 400 K/cumm CERNER BJ Comment:Testing performed by : [facility], [address] [place] [address] MPV 6.3(L) 6.8 - 10.4 fL CERNER BJ Comment:Testing performed by : [facility], [address] [place] [address] RBC 3.33(L) 4.30 - 5.80 M/cumm CERNER BJ Comment:Testing performed by : [facility], [address] [place] [address] MCV 80.3(L) 81.3 - 96.4 fL CERNER BJ Comment:Testing performed by : [facility], [address] [place] [address] MCH 26.2(L) 27.1 - 33.3 pg JOB MCCOLLUM Comment:Testing performed by : [facility], [address] [place] [address] MCHC 32.6 32.3 - 35.7 g/dL JOB MCCOLLUM Comment:Testing performed by : [facility], [address] [place] [address] RDW CV 19.4(H) 11.1 - 14.9 % JOB MCCOLLUM Comment:Testing performed by : [facility], [address] [place] [address] NRBC abs 0.00 0.00 - 0.01 K/cumm JOB MCCOLLUM Comment:Testing performed by : [facility], [address] [place] [address] Blood 12/03/2024 2:05 PM CDT 12/03/2024 2:07 PM CDT us Franklin Ledezma MD PhD LAB BLOOD ORDERABLES Brian omid Result - Final JOB [facility] Department [place] [address] * (ABNORMAL) Manual Differential (12/03/2024 2:05 PM CDT) Cells Counted 200 Comment:Testing performed by : [facility], [address] [place] [address] Neutrophil abs 4.82 1.50 - 6.50 K/cumm JOB MCCOLLUM Comment:Testing performed by : [facility], [address] [place] [id number] Lymphocyte abs 0.51(L) 0.80 - 3.30 K/cumm JOB MCCOLLUM Comment:Testing performed by : [facility], [address] [place] [phone] Monocyte abs 0.64 0.20 - 0.80 K/cumm [facility] Comment:Testing performed by : [facility], [address] [place] [phone] Eosinophil abs 0.00 0.00 - 0.50 K/cumm [facility] Comment:Testing performed by : [facility], [address] [place] [phone] Basophil abs 0.13(H) 0.00 - 0.10 K/cumm [facility] Comment:Testing performed by : [facility], [address] [place] [phone] Neutrophil pct 75.0 % [facility] Comment: Interpretive Data Percent cell count reference ranges are not reported, since discordance with absolute values may lead to misinterpretation of CBC data. Current Interpretive Data was last revised on 2017. Testing performed by: [facility], [address] [place] [phone] Lymphocyte pct 8.0 % [facility] Comment: Interpretive Data Percent cell count reference ranges are not reported, since discordance with absolute values may lead to misinterpretation of CBC data. Current Interpretive Data was last revised on 2017. Testing performed by: [facility], [address] [place] [phone] Monocyte pct 10.0 % [facility] Comment: Interpretive Data Percent cell count reference ranges are not reported, since discordance with absolute values may lead to misinterpretation of CBC data. Current Interpretive Data was last revised on 2017. Testing performed by: [facility], [address] [place] [phone] Eosinophil pct 0.0 % [facility] Comment: Interpretive Data Percent cell count reference ranges are not reported, since discordance with absolute values may lead to misinterpretation of CBC data. Current Interpretive Data was last revised on 2017. Testing performed by: [facility], [address] [place] [phone] Basophil pct 2.0 % [facility] Comment: Interpretive Data Percent cell count reference ranges are not reported, since discordance with absolute values may lead to misinterpretation of CBC data. Current Interpretive Data was last revised on 2017. Testing performed by: [facility], [address] [place] [address] Metamyelocyte pct 2.0(H) 0.0 - 0.0 % CERNER [facility] Comment:Testing performed by : [facility], [address] [place], [place] [phone] Myelocyte pct 4.0(H) 0.0 - 0.0 % CERNER [facility] Comment:Testing performed by : [facility], [address] [place], [place] [phone] Variant lymph pct 1.0(H) 0.0 - 0.0 % CERNER [facility] Comment:Testing performed by : [facility], [address] [place], [place] [phone] RBC morphology NRBCs present(A) CERNER [facility]J Comment:Testing performed by : [facility], [address] [place], [place] [phone] Anisocytosis 1+(A) CERNER [facility] Comment:Testing performed by : [facility], [address] [place], [place] [phone] Microcytes 1+(A) CERNER [facility]J Comment:Testing performed by : [facility], [address] [place], [place] [phone] Macrocytes 1+(A) CERNER [facility]J Comment:Testing performed by : [facility], [address] [place], [place] [phone] Elliptocytes 1+(A) CERNER [facility]J Comment:Testing performed by : [facility], [address] [place], [place] [phone] Platelet estimate Adequate CERNER [facility] Comment:Testing performed by : [facility], [address] [place], [place] [phone] Blood 12/03/2024 2:05 PM CDT 12/03/2024 2:07 PM CDT us Franklin Ledezma MD PhD LAB BLOOD ORDERABLES Fin al Result Performing Organization Address City/State/[facility] Co de Phone Number [facility] Department [place] [address] * (ABNORMAL) Comprehensive metabolic panel (12/03/2024 2:05 PM CDT) Sodium 136 135 - 145 mmol/L Potassium, pl 3.9 3.3 - 4.9 mmol/L [facility] Chloride 100 97 - 110 mmol/L [facility] CO2 25 22 - 32 mmol/L [facility] Anion gap 11 2 - 15 mmol/L [facility] BUN 11 6 - 25 mg/dL [facility] Creatinine 0.86 0.80 - 1.30 mg/dL [facility] Glucose 259(H) 70 - 199 mg/dL [facility] [...] interpretive data was last revised 2022. Calcium 9.6 8.5 - 10.3 mg/dL [facility] Bilirubin, total 0.3 0.1 - 1.2 mg/dL [facility] Protein, pl 6.8 6.5 - 8.5 g/dL [facility] Albumin 3.4(L) 3.5 - 5.0 g/dL [facility] Alk phos 276(H) 40 - 130 Units/L [facility] ALT 50 7 - 55 Units/L [facility] AST 46 10 - 50 Units/L [facility] Blood 12/03/2024 2:05 PM CDT 12/03/2024 2:15 PM CDT us Franklin Ledezma MD PhD LAB BLOOD ORDERABLES Fin al Result [facility] Department [place] [address] * (ABNORMAL) DIABETES EYE EXAM (01/17/2024 8:11 AM CDT) Historical Provider HEALTH MAINTENANCE Final Result * Diabetic Foot Exam (12/12/2019) Historical Provider MD HEALTH MAINTENANCE Final Result * PSA screen (10/11/2017 11:35 AM CDT) SCRIBED PSA, Serum 1.5 0.0 - 4.0 [facility] Blood specimen (specimen) Historical Provider LAB BLOOD ORDERABLES Edit ed Result - Final [facility] from Last 3 Months or Most Recently Relevant to Health Maintenance Insurance [facility] [place] [address] [address] [place] [address] [facility] [place] [address] [address] [place] [address] [facility] [place] [address] [address] [place] [address] [facility] Advance Directives For more information, please contact: [phone] * Full Code (Latest Code Status on File) Date Activated Date Inactivated Comments 01/06/2025 6:34 PM 01/08/2025 10:23 PM * Full Code Date Activated Date Inactivated Comments 10/18/2024 7:56 AM 10/24/2024 1:23 PM * Full Code Date Activated Date Inactivated Comments 05/13/2021 5:01 PM 05/14/2021 2:11 PM Care Teams Release Engineer Relationship Specialty Start Date End Date Vu Condon DO PCP - General Internal Medicine 10/04/24 Franklin Ledezma MD PhD Medical Oncologist/Music Composer Medical Oncology 10/25/24
[2025-03-03 11:50] VITALS: BP 117/68; PULSE 87; RESP 18; TEMP 36.4; O2SAT 100
--- NOTE | 2025-03-03 11:55 | ED.EXTPRO ---
HPI - Extremity Problem General Chief complaint: Extremity Problem,Nontraumatic Stated complaint: LT Shoulder pain Time Seen by Provider: 03/03/25 11:55 Source: patient Mode of arrival: ambulatory Limitations: no limitations History of Present Illness HPI Narrative: 59 yo M presents with c/o L shoulder pain for 4 days. Chronic pain to R shoulder for years. Needs replacement but unable to get one because of current pancreatic cancer. No injury to L shoulder. Continues to have normal ROM. pt requesting muscle relaxant. All systems reviewed and negative except as noted above. Related Data Home Medications ?Medication ?Instructions ?Recorded ?Confirmed ?Last Taken ?Type atorvastatin 20 mg tablet 20 mg PO DAILY 05/21/19 03/03/25 09/30/24 History metformin 1,000 mg tablet 1,000 mg PO BID 05/21/19 03/03/25 09/30/24 History glimepiride 2 mg tablet 2 mg PO DAILY 09/30/24 03/03/25 09/30/24 History insulin lispro 100 unit/mL 1 sliding scale dose subcut 09/30/24 03/03/25 09/30/24 History subcutaneous pen (Humalog KwikPen USEASDIRECTD (U-100) Insulin) latanoprost 0.005 % eye drops 1 drp EACH EYE QPM 09/30/24 03/03/25 09/29/24 History (Xalatan) timolol 0.25 % eye drops 1 drp EACH EYE Q12H 09/30/24 09/30/24 09/30/24 History apixaban 5 mg tablet (Eliquis) mg 03/03/25 Unknown History dexamethasone 4 mg tablet mg 03/03/25 Unknown History diphenoxylate-atropine 2.5 tablet 03/03/25 Unknown History mg-0.025 mg tablet ondansetron HCl 8 mg tablet mg 03/03/25 Unknown History prochlorperazine maleate 10 mg mg 03/03/25 Unknown History tablet Allergies Allergy/AdvReac Type Severity Reaction Status Date / Time dapagliflozin (From [facility]) Allergy Mild Rash Verified 03/03/25 11:42 Penicillins Allergy Mild Rash Verified 03/03/25 11:42 [facility] Past Medical History Medical History Osteoarthritis Valerio esophagus Peptic ulcer Dyslipidemia Obstructive sleep apnea on CPAP Insulin dependent type 2 diabetes mellitus Surgical History Surgical History History of arthroplasty of left shoulder History of total left hip arthroplasty History of repair of right rotator cuff Family History Family History Father Family history of lung cancer Patient's father is Mother Cerebrovascular accident Patient's mother is Other Diabetes mellitus Family history of arthritis Social History Social History Social History: Surrogate medical decision maker: Taisha Foster, spouse. Code status: Full code. Smoking status: Never smoker Second hand tobacco smoke exposure: No Alcohol intake: current Drinks per week: 1 Alcohol use details: on occasion Substance use: never Substance use type: does not use Do You Feel Safe in your Home?: Yes Lack of Transportation: No Lack of Food: Never True Current Housing: I Have Housing Concerned About Future Housing: No Difficulty Paying Gas/Electric Bills: No Difficulty Paying for Meds: No Currently Unemployed: No Education: Master's Degree or Higher Difficulty w/ Childcare or Family Care: No Living arrangements: with family Additional living arrangements comments: Lives with spouse in [place]. 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 Spiritual care concerns: No Comments At time of signature, agree with nursing past medical, surgical, social and family history. There is no relevant family history pertinent to the presenting complaint. Exam Narrative: GENERAL: This is a well-nourished, well-developed patient, in no apparent distress. HEAD: normocephalic, atraumatic. EYES: PERRL. Sclera clear/white. Vision is grossly intact. EARS: External ears normal NOSE: External nose normal NECK: Neck supple, non-tender without lymphadenopathy, masses or thyromegaly. CARDIOVASCULAR: Regular rate and rhythm without murmurs, gallops, or rubs. RESPIRATORY: Clear to auscultation. Breath sounds equal bilaterally. No wheezes, rales, or rhonchi. SKIN: warm, Dry, intact with no suspicious lesions or rash, good texture and turgor. NEURO: awake, alert, and oriented to person, place and time. There were no obvious focal neurologic abnormalities. EXTREMITIES:tenderness to L trapezius muscle on palpation. normal ROM to L shoulder. Back/Spine/Pelvis: Back/spine/pelvis image:  1. tender on palpation Course Course Level of Care: Express Care Visit Vital Signs Vital signs: Vital Signs Temperature 36.4 C 03/03/25 11:50 Pulse Rate 87 03/03/25 11:50 Respiratory Rate 18 03/03/25 11:50 Blood Pressure 117/68 03/03/25 11:50 Pulse Oximetry 100 03/03/25 11:50 Oxygen Delivery Room Air 03/03/25 11:50 Temperature 36.4 C 03/03/25 11:50 Pulse Rate 87 03/03/25 11:50 Respiratory Rate 18 03/03/25 11:50 Blood Pressure 117/68 03/03/25 11:50 Pulse Oximetry 100 03/03/25 11:50 Oxygen Delivery Room Air 03/03/25 11:50 Reviewed MDM - Extremity (Nontraumatic) MDM Narrative Medical decision making narrative: patient prescribed muscle relaxant for left shoulder pain. Patient has chemotherapy tomorrow with his oncologist. Recommend he mention shoulder pain to oncologist and also inform him that he is now taking cyclobenzaprine for muscle spasm. Patient has normal CMS to left shoulder. Will see his primary care physician if left shoulder pain is not improving. X-ray imaging was not indicated due to muscular tenderness, no injury. Discharge Plan Discharge Clinical Impression: Acute pain of left shoulder Patient Disposition: Home Condition: Stable Instructions: Shoulder Pain (ED) Additional Instructions: Take muscle relaxant as prescribed. Cyclobenzaprine may cause drowsiness. Do not drive while taking it. Alternate between ice and heat. See your primary care physician if symptoms not improving. Patient Language: Spanish Prescriptions: New cyclobenzaprine 10 mg tablet 10 mg PO Q8H PRN (Reason: muscle spasm) Qty: 30 0RF No Action diphenoxylate-atropine 2.5-0.025 mg tablet prochlorperazine maleate 10 mg tablet Eliquis 5 mg tablet ondansetron HCl 8 mg tablet dexamethasone 4 mg tablet metformin 1,000 mg tablet 1,000 mg PO BID atorvastatin 20 mg tablet 20 mg PO DAILY insulin lispro [Humalog KwikPen Insulin] 100 unit/mL insulin pen 1 sliding scale dose subcut USEASDIRECTD glimepiride 2 mg tablet 2 mg PO DAILY timolol 0.25 % drops 1 drp EACH EYE Q12H latanoprost [Xalatan] 0.005 % drops 1 drp EACH EYE QPM pantoprazole 40 mg Tablet,Delayed Release (Dr/Ec) 40 mg PO Q12HR Qty: 60 0RF insulin glargine-yfgn [Semglee(insulin glarg-yfgn)Pen] 100 unit/mL (3 mL) insulin pen 80 unit subcut DAILY Qty: 75 1RF valsartan-hydrochlorothiazide [Diovan HCT] 160-25 mg tablet 1 tablet PO DAILY Qty: 90 2RF oxycodone-acetaminophen 10-325 mg tablet 1 tablet PO Q4H PRN (Reason: Pain Rated 7-10) Qty: 30 0RF enoxaparin 120 mg/0.8 mL syringe 120 mg subcut Q12H Qty: 8 0RF acyclovir 200 mg capsule 200 mg PO QID Qty: 30 0RF Follow-up/Referrals: Vu Condon DO [Primary Care Provider, Internal Medicine] Time of Disposition: 12:07
== END 2025-03-03 12:11 | disposition home or self-care (01) ==
PROVIDERS: Emergency Provider Nurse Practitioner Family; PCP Internal Medicine
DX: M25.512 Pain in left shoulder (principal); K22.70 Barrett's esophagus without dysplasia; E78.5 Hyperlipidemia, unspecified; E11.9 Type 2 diabetes mellitus without complications; Z79.4 Long term (current) use of insulin; Z79.84 Long term (current) use of oral hypoglycemic drugs; M19.90 Unspecified osteoarthritis, unspecified site; G47.33 Obstructive sleep apnea (adult) (pediatric); Z96.642 Presence of left artificial hip joint; Z96.612 Presence of left artificial shoulder joint; Z79.01 Long term (current) use of anticoagulants
CPT/HCPCS: 99213; G0463